=== PATIENT | female | born 1995 | race Caucasian/White ===

== ENCOUNTER 2022-05-31 13:17 | Outpatient (CLI) | payer OTHER, SELFPAY ==
[2022-05-31 22:23] LABS: Yeast No Yeast Seen (None Seen)
[2022-05-31 22:24] LABS: Clue Cells No Clue Cells Seen (None Seen); Trichomonas No Trichomonas Seen (None Seen)
[2022-06-01 11:04] LABS: Ur HCG Qualitative* Negative (Negative)
== END 2022-05-31 13:18 | disposition home or self-care (01) ==
PROVIDERS: PCP Nurse Practitioner Family; Visit Provider Nurse Practitioner Family
DX: R10.2 Pelvic and perineal pain (principal); N89.8 Other specified noninflammatory disorders of vagina
CPT/HCPCS: 81025; 87210

== ENCOUNTER 2022-08-31 12:30 | Outpatient (CLI) | payer BC, SELFPAY ==
--- OUTSIDE RECORDS SUMMARY | 2022-08-31 12:32 | XMS_ITS | Encounter Summary ---
:1995 Author Organization [facility] Address [address] [place] [address] Care Team Providers Name Role Phone Belkys Marshall APRN, C.NTawanna, M.S. Primary Care Provider [phone]- [phone] Encounter Details Date Type Department Care Team Description 04/30/2022 Hospital Encounter Department of Lucinda, Coliti s Crohn's (HCC); Laboratory Medicine [place], Care Pos tpartum And Lactating in [place] [phone] Social History Tobacco Use Types Packs/Day Years Used Date Smoking Tobacco: Never Smokeless Tobacco: Never Alcohol Use Standard Drinks/Week Comments Not Currently 0 (1 standard drink = 0.6 oz pure alcoho l) rarely before preg Alcohol Habits Answer Date Recorded How often do you have a drink containing alcohol? Never 11/23/2021 How many drinks containing alcohol do you have on a typical day 1 or 2 03/18/2021 when you are drinking? How often do you have six or more drinks on one occasion? Ne armaan 03/18/2021 Social Isolation Answer Date Recorded In a typical week, how many times do you More than three juan david es a week 11/23/2021 talk on the phone with family, friends, or neighbors? How often do you get together with friends Once a week 11/23/2021 or relatives? How often do you attend rastafari or 1 to 4 times per year 11/11 latter day services? Do you belong to any clubs or Yes 11/23/2021 organizations such as rastafari groups, unions, fraternal or athletic groups, or school groups? How often do you attend meetings of the 1 to 4 times per yea r 11/23/2021 clubs or organizations you belong to? Are you now , , , Living with partner 11/23/2021 , never or living with a partner? Physical Activity Answer Date Recorded On average, how many days per week do you engage in moderate to 3 days 11/23/2021 strenuous exercise (like walking fast, running, jogging, dancing, swimming, biking, or other activities that cause a light or heavy sweat)? On average, how many minutes do you engage in exercise at th is 30 min 11/23/2021 level? Stress Answer Date Recorded Do you feel stress - tense, restless, nervous, or anxious, N ot at all 11/23/2021 or unable to sleep at night because your mind is troubled all the time - these days? Financial Resource Strain Answer Date Recorded How hard is it for you to pay for the very basics like Not v carmina hard 11/23/2021 food, housing, medical care, and heating? Intimate Partner Violence Answer Date Recorded Within the last year, have you been afraid of your partner o r No 11/23/2021 ex-partner? Within the last year, have you been humiliated or emotionall y No 11/23/2021 abused in other ways by your partner or ex-partner? Within the last year, have you been kicked, hit, slapped, or No 11/23/2021 otherwise physically hurt by your partner or ex-partner? Within the last year, have you been raped or forced to have any No 11/23/2021 kind of sexual activity by your partner or ex-partner? Food Insecurity Answer Date Recorded Within the past 12 months, you worried that your food would Never true 11/23/2021 run out before you got money to buy more. Within the past 12 months, the food you bought just didn't N ever true 11/23/2021 last and you didn't have money to get more. Transportation Needs Answer Date Recorded In the past 12 months, has lack of transportation kept you f rom No 11/23/2021 medical appointments or from getting medications? In the past 12 months, has lack of transportation kept you f rom No 11/23/2021 meetings, work, or getting things needed for daily living? Housing Stability Answer Date Recorded In the last 12 months, was there a time when you were not ab le No 11/23/2021 to pay the mortgage or rent on time? In the last 12 months, how many places have you lived? 1 11/23/2021 In the last 12 months, was there a time when you did not hav e a No 11/23/[address] or slept in a assisted (including now)? Education Answer Date Recorded What is the highest level of school Master's degree (e.g., M A, MS, 11/23/2021 you have completed or the highest Connie, MEd, POWER LINEWORKER, LORI) degree you have received? Sex Assigned at Date Recorded Female 07/18/2021 2:49 PM CDT documented as of this encounter Medications at Time of Discharge Medication Sig Dispensed Refills Start Date End Date acetaminophen Take 2 tablets (1,000 0 02/23/2022 (TYLENOL) 500 mg mg total) by mouth tablet every 6 (six) hours. albuterol inhaler Inhale 1-2 puffs every 1 Inhaler 1 2019 4 (four) hours as needed for wheezing or shortness of breath. cholecalciferol, Take 25 mcg by mouth 0 vitamin D3, 25 mcg daily. (1,000 Unit) tablet docusate sodium Take 1 capsule (100 mg 30 capsule 6 02/24/20 22 (COLACE) 100 mg total) by mouth 2 capsule (two) times a day as needed for constipation. lidocaine (LIDODERM) 5 Place 1 patch on the 14 patch 1 % skin daily. Apply to skin above incision as needed mercaptopurine Take 1 tablet (50 mg 90 tablet 3 12/22/2021 (PURINETHOL) 50 mg total) by mouth daily. tablet on an empty stomach mupirocin (BACTROBAN) Apply 1 application 22 g 0 04/06 2 % ointment topically 3 (three) times a day. Apply to nipples norethindrone Take 1 tablet (0.35 mg 84 tablet 4 04/06/2022 04/06/2023 (MICRONOR) 0.35 mg total) by mouth daily. tablet oxyCODONE (ROXICODONE) Take 1 tablet (5 mg 6 tablet 0 02/09 5 mg immediate release total) by mouth every tabletIndications: 6 (six) hours as Acute Pain needed for moderate pain or score 4-6 of 10 Indication: Acute Pain. Take 1 tablet by mouth 0 02/23/2022 [id number] 27 daily. mg iron- 1 mg tablet sennosides (SENOKOT) Take 2 tablets (17.2 0 02/23 8.6 mg tablet mg total) by mouth at bedtime. simethicone (MYLICON) Chew 2 tablets (160 mg 0 80 mg chewable tablet total) every 6 (six) hours as needed for flatulence (for abdominal gas). ustekinumab (Stelara) Inject 90 mg 180 mL 2 11/01/2021 90 mg/mL subcutaneously every 8 injectionIndications: weeks. Crohn's Disease (HCC) sodium,potassium,mag Drink 1st portion of 1 kit 0 04/2605/03/2022 sulfates (SUPREP BOWEL prep at 6 PM the PREP) 17.5-3.13-1.6 evening before. 2nd gram solution portion must be started 3 hours before and finished 2 hours prior to report time documented as of this encounter Plan of Treatment Not on filedocumented as of this encounter Procedures Procedure Name Priority Date/Time Associated Comments Diagnosis HEPATIC FUNCTION Routine 04/30/2022 1:11 PM Colitis Crohn's Re sults for this PANEL, S CDT ([facility]) procedure are i n the results section. VITAMIN A AND VITAMIN Routine 04/30/2022 1:11 PM Colitis Crohn 's Results for this E, S CDT ([facility]) procedure are i n the results section. 25-HYDROXYVITAMIN D2 Routine 04/30/2022 1:11 PM Colitis Crohn' s Results for this AND D3, S CDT (HCC) procedure are i n the results section. PROTHROMBIN TIME Routine 04/30/2022 1:11 PM Colitis Crohn's Re sults for this (PT), P CDT (HCC) procedure are i n the results section. CBC WITH Routine 04/30/2022 1:11 PM Colitis Crohn's Result s for this DIFFERENTIAL, B CDT (HCC) procedure ar e in the results section. HUMAN CHORIONIC Routine 04/30/2022 1:11 PM Care And Results for this GONADOTROPIN (HCG), CDT Lactating procedur e are in [place]ECILIA, the results section. FOLATE, S Routine 04/30/2022 1:11 PM Colitis Crohn's Result s for this CDT (HCC) procedure are i n the results section. FERRITIN, S Routine 04/30/2022 1:11 PM Colitis Crohn's Result s for this CDT (HCC) procedure are i n the results section. VITAMIN B12 ASSAY, S Routine 04/30/2022 1:11 PM Colitis Crohn' s Results for this CDT (HCC) procedure are i n the results section. BASIC METABOLIC Routine 04/30/2022 1:11 PM Colitis Crohn's Res ults for this PANEL, S/P CDT (HCC) procedure are i n the results section. documented in this encounter Results hCG (Human Chorionic Gonadotropin), Quantitative, (04/30/2022 1:11 PM CDT) P athologist Signature HCG, <1.0 <5 IU/L 04/30/2022 [facility] Quantitative, 4:35 PM CDT , P Specimen Anatomical Collection Method Collection Time Receive d Time (Source) Location / / Volume Laterality Blood (Blood, 04/30/2022 1:11 PM 04/30/20 22 3:46 Venous) CDT PM CDT Juan Jama LAB BLOOD ADD-ON Performing Organization Address City/State/ZIP Code Phon e Number [facility]- [address] [place] [address] [facility] [place] [address] System in [place] [address] Vitamin A and Vitamin E (04/30/2022 1:11 PM CDT) athologist Signature Vitamin A 54.4 32.5 - 78.0 05/02/2022 8:03 [facility] mcg/dL AM CDT Comment: ----ADDITIONAL INFORMATION---- This test was developed and its performa nce characteristics determined by [facility] in a manner consistent with CLIA requirements. This test has not been cleared or approved by the [place] [facility] d and Drug Administration. A-Tocopherol, Vitamin E 6.1 5.5 - 17.0 mg/L 05/02/2022 2:20 PM CDT [facility] Specimen Anatomical Collection Method Collection Time Receive d Time (Source) Location / / Volume Laterality Blood (Blood, 04/30/2022 1:11 PM 05/01/20 Venous) CDT 11:54 AM CDT Juan GalindoSJulia LAB BLOOD NON ADD-ON Performing Organization Address City/[facility] Phon e Number [facility] [address] [place], [place] [address] [place] [address] CENTER [facility] [place] [address] Laboratory Medicine and Pathology [address] [place] [address] Dr. VALLES Vitamin B12 Assay (04/30/2022 1:11 PM CDT) athologist Signature Vitamin B12 732 240 - 1245 05/01/2022 AUST Assay, S ng/L 3:13 AM CDT Comment: Biotin has been identified by the paulina chaparro as a potential interfering substance. Higher concentrations of biotin may be found in multivitamins, zayas ir/nail supplements, and workout supplements. If the result d oes not match clinical observations, repeat testing af ter patient refrains from the use of supplements for at least 12 hours. Specimen Anatomical Collection Method Collection Time Receive d Time (Source) Location / / Volume Laterality Blood (Blood, 04/30/2022 1:11 PM 04/30/20 Venous) CDT 10:18 PM CDT Juan GalindoSJulia LAB BLOOD ADD-ON Performing Organization Address City/State/ZIP Code Phon e Number [facility]- [address] [place] [address] [facility] [place] [address] [facility] [address] Folate (04/30/2022 1:11 PM CDT) athologist Signature Folate, S 16.1 >=4.0 mcg/L 05/01/2022 3:13 AUST AM CDT Comment: Biotin has been identified by the paulina chaparro as a potential interfering substance. Higher concentrations of biotin may be found in multivitamins, zayas ir/nail supplements, and workout supplements. If the result d oes not match clinical observations, repeat testing af ter patient refrains from the use of supplements for at least 12 hours. Specimen Anatomical Collection Method Collection Time Receive d Time (Source) Location / / Volume Laterality Blood (Blood, 04/30/2022 1:11 PM 04/30/20 22 Venous) CDT 10:18 PM CDT Juan GalindoS. LAB BLOOD ADD-ON Performing Organization Address City/State/ZIP Code Phon e Number [facility]- [address] [place] [address] [facility] [place] [address] [facility] [address] Ferritin (04/30/2022 1:11 PM CDT) athologist Signature Ferritin, S 43 6 - 175 04/30/2022 [facility] mcg/L 4:21 PM CDT Comment: Biotin has been identified by the paulina cahparro as a potential interfering substance. Higher concentrations of biotin may be found in multivitamins, zayas ir/nail supplements, and workout supplements. If the result d oes not match clinical observations, repeat testing af ter patient refrains from the use of supplements for at least 12 hours. Specimen Anatomical Collection Method Collection Time Receive d Time (Source) Location / / Volume Laterality Blood (Blood, 04/30/2022 1:11 PM 04/30/20 22 3:46 Venous) CDT PM CDT Juan RicoBJuliaS. LAB BLOOD ADD-ON Performing Organization Address City/State/ZIP Code Phon e Number [facility]- [address] [place] [address] [place] [address] System in [place] [address] 25-Hydroxyvitamin D2 and D3 (04/30/2022 1:11 PM CDT) athologist Signature 25-Hydroxy D2 <4.0 ng/mL 05/02/2022 SDSC 1:06 PM CDT 25-Hydroxy D3 46 ng/mL 05/02/2022 [facility]SC 1:06 PM CDT 25-Hydroxy D 46 ng/mL 05/02/2022 [facility] Total 1:06 PM CDT Comment: ----REFERENCE VALUE---- 25-HYDROXY D TOTAL (D2+D3) Optimum level s in the healthy population are 20-50, patients with bone disease may benefit from higher levels within this r presley. ----ADDITIONAL INFORMATION---- This test was developed and its performa nce characteristics determined by [facility] in a manner consistent with CLIA requirements. This test has not been cleared or approved by the [place] d and Drug Administration. Specimen Anatomical Collection Method Collection Time Receive d Time (Source) Location / / Volume Laterality Blood (Blood, 04/30/2022 1:11 PM 05/01/20 7:21 Venous) CDT AM CDT Juan Jama LAB BLOOD ADD-ON Performing Organization Address City/State/ZIP Code Phon e Number [facility] [address] [place], [place] [address] SUPPORT CENTER [facility] [place] [address] Laboratory Medicine and Pathology [address] [place] Prothrombin Time (PT) (04/30/2022 1:11 PM CDT) athologist Signature Prothrombin 10.9 9.4 - 12.5 04/30/2022 [facility] Time, P sec 4:08 PM CDT INR 0.9 0.9 - 1.1 04/30/2022 [facility] 4:08 PM CDT Comment: ----ADDITIONAL INFORMATION---- Standard intensity warfarin therapeutic range: 2.0 to 3.0 ?? High intensity warfarin therapeutic rang e: 2.5 to 3.5 Specimen Anatomical Collection Method Collection Time Receive d Time (Source) Location / / Volume Laterality Blood (Blood, 04/30/2022 1:11 PM 04/30/20 3:46 Venous) CDT PM CDT Juan GalindoSJulia LAB BLOOD ADD-ON Performing Organization Address City/State/ZIP Code Phon e Number [facility]- [address] [place] [address] [facility] [place] [address] System in [place] [address] (ABNORMAL) Hepatic Function Panel (04/30/2022 1:11 PM CDT) [facility] gist Method Time Signature Bilirubin, Total, P 1.1 <=1.2 04/30/2022 [facility] mg/dL 4:14 PM CDT Bilirubin, Direct, P 0.2 0.0 - 0.3 04/30/2022 [facility] mg/dL 4:14 PM CDT Aspartate 21 8 - 43 04/30/2022 [facility] Aminotransferase U/L 4:14 PM CDT (AST), P Alanine 13 7 - 45 04/30/2022 [facility] Aminotransferase U/L 4:14 PM CDT (ALT), P Alkaline 73 35 - 104 04/30/2022 [facility] Phosphatase, P U/L 4:14 PM CDT Albumin, P 5.1 (H) 3.5 - 5.0 04/30/2022 [facility] g/dL 4:14 PM CDT Protein, Total, P 7.6 6.3 - 7.9 04/30/2022 [facility] g/dL 4:14 PM CDT Specimen Anatomical Collection Method Collection Time Receive d Time (Source) Location / / Volume Laterality Blood (Blood, 04/30/2022 1:11 PM 04/30/20 3:46 Venous) CDT PM CDT Juan GalindoSJulia LAB BLOOD ADD-ON Performing Organization Address City/State/ZIP Code Phon e Number [facility]- [address] [place] [address] [facility] [place] [address] System in [place] [address] CBC with Differential, Blood (04/30/2022 1:11 PM CDT) P athologist Signature Hemoglobin 15.0 11.6 - 04/30/2022 FB60 15.0 g/dL 1:54 PM CDT Hematocrit 44.8 35.5 - 04/30/2022 FB60 44.9 % 1:54 PM CDT Erythrocytes 4.82 3.92 - 04/30/2022 FB60 5.13 1:54 PM CDT x10(12)/L MCV 92.9 78.2 - 04/30/2022 FB60 97.9 fL 1:54 PM CDT RBC Distrib Width 12.4 12.2 - 04/30/2022 FB60 16.1 % 1:54 PM CDT Platelet Count 308 157 - 371 04/30/2022 FB60 x10(9)/L 1:54 PM CDT Leukocytes 5.8 3.4 - 9.6 04/30/2022 FB60 x10(9)/L 1:54 PM CDT Neutrophils 3.39 1.56 - 04/30/2022 FB60 6.45 1:54 PM CDT x10(9)/L Lymphocytes 1.73 0.95 - 04/30/2022 FB60 3.07 1:54 PM CDT x10(9)/L Monocytes 0.44 0.26 - 04/30/2022 FB60 0.81 1:54 PM CDT x10(9)/L Eosinophils 0.18 0.03 - 04/30/2022 FB60 0.48 1:54 PM CDT x10(9)/L Basophils 0.02 0.01 - 04/30/2022 FB60 0.08 1:54 PM CDT x10(9)/L Specimen Anatomical Collection Method Collection Time Receive d Time (Source) Location / / Volume Laterality Blood (Blood, 04/30/2022 1:11 PM 04/30/20 1:12 Venous) CDT PM CDT Juan Jama LAB BLOOD ADD-ON Performing Organization Address City/State/ZIP Code Phon e Number [facility]- [address] [place] [address] [facility] [address] [place] [address] System in [place] [address] (ABNORMAL) Basic Metabolic Panel (04/30/2022 1:11 PM CDT) P athologist Signature Potassium, P 4.3 3.6 - 5.2 04/30/2022 [facility] mmol/L 4:14 PM CDT Sodium, P 141 135 - 145 04/30/2022 [facility] mmol/L 4:14 PM CDT Chloride, P 105 98 - 107 04/30/2022 [facility] mmol/L 4:14 PM CDT Bicarbonate, P 24 22 - 29 04/30/2022 [facility] mmol/L 4:14 PM CDT Anion Gap, P 12 7 - 15 04/30/2022 [facility] 4:14 PM CDT BUN (Blood Urea 12 6 - 21 04/30/2022 [facility] Nitrogen), P mg/dL 4:14 PM CDT Creatinine 0.84 0.59 - 04/30/2022 [facility] 1.04 mg/dL 4:14 PM CDT eGFR-Black/Afric >90 >=60 04/30/2022 [facility] an Marshallese mL/min/BSA 4:14 PM CDT Comment: ----ADDITIONAL INFORMATION---- Estimated GFR calculated using the 2009 CKD_EPI creatinine equation. eGFR Non-Black/ >90 >=60 mL/min/BSA 04/30/2022 4:14 PM CDT [facility] Comment: ----ADDITIONAL INFORMATION---- Estimated GFR calculated using the 2009 CKD_EPI creatinine equation. Calcium, Total, P 10.6 (H) 8.6 - 10.0 mg/dL 04/30/2022 4:14 PM CDT [facility] Glucose, P 89 70 - 140 mg/dL 04/30/2022 4:14 PM CDT O ELIAZAR Specimen Anatomical Collection Method Collection Time Receive d Time (Source) Location / / Volume Laterality Blood (Blood, 04/30/2022 1:11 PM 04/30/20 3:46 Venous) CDT PM CDT Juan Jama LAB BLOOD ADD-ON Performing Organization Address City/State/ZIP Code Phon e Number [facility]- [address] [place] [address] [place] [address] System in [place] [address] documented in this encounter Visit Diagnoses Diagnosis Colitis Crohn's (HCC) Care And Lactating documented in this encounter Additional Health Concerns Assessment Noted Time PHQ-9 Depression Total Score: 4 11/29/2021 10:43 AM CS T documented as of this encounter Care Teams Community Health Advocate Relationship Specialty Start Date End Date Belkys Marshall APRN, C.N.P., M.S. PCP - General Family Medicine 11/16/[address] [place] [address] documented as of this encounter
--- OUTSIDE RECORDS SUMMARY | 2022-08-31 12:32 | XMS_ITS | Encounter Summary ---
:1995 Author Organization [facility] Address [address] [place] [address] Care Team Providers Name Role Phone Belkys Marshall APRN C.N.P., M.S. Primary Care Provider [phone]- [phone] Encounter Details Date Type Department Care Team Description 02/28/2022 Orders Only Pharmacy Prior Auth Aleksandra Aragon [phone] Social History Tobacco Use Types Packs/Day Years [...] or relatives? How often do you attend jain or 1 to 4 times per year 11/11 lutheran services? Do you belong to any clubs or Yes 11/23/2021 organizations such as jain groups, unions, fraternal or athletic groups, or [...] highest level of school Master's degree (e.g., Naima An, MS, 11/23/2021 you have completed or the highest Connie, MEd, SEISMIC SURVEY ASSISTANT, LORI) degree you have received? Sex Assigned at Date Recorded Female 07/18/2021 2:49 PM CDT documented as of this encounter Plan of Treatment Not on filedocumented as of this encounter Visit Diagnoses Not on filedocumented in this encounter Additional Health Concerns Assessment Noted Time PHQ-9 Depression Total Score: 4 11/29/2021 10:43 AM CS T documented as of this encounter Care Teams Potato Chip Sorter Relationship Specialty Start Date End Date Belkys Marshall, KARL, C.N.P., M.S. PCP - General Family Medicine 11/16/19 [address] [place] [address] documented as of this encounter
--- OUTSIDE RECORDS SUMMARY | 2022-08-31 12:32 | XMS_ITS | Encounter Summary ---
:1995 Author Organization [facility] Address [address] [place] [address] Care Team Providers Name Role Phone Belkys Marshall APRN, C.NVira., M.S. Primary Care Provider [phone]- [phone] Reason for Visit Outpatient (Routine) - Closed Specialty Diagnoses / Procedures Referred By Contact Refer red To Contact Diagnoses [facility] Colon[facility] restricted M.B.B.S. [address] [place] [address] Referral ID Status Reason Start Date Expiration Date Visits Requ ested Visits Authorized [id number] Closed 04/06/2022 04/06/2023 1 1 Encounter Details Date Type Department Care Team Description 04/30/2022 Hospital Encounter Division of Parthasarath Canceled (Patient: Gastroenterology in y, Request) [facility], [address] [facility] [[email or web address] M[place]B.B.S. [place], [place] [phone] [place] [phone] Social History Tobacco Use Types Packs/Day Years [...] or relatives? How often do you attend presybeterian or 1 to 4 times per year 11/11 protestant services? Do you belong to any clubs or Yes 11/23/2021 organizations such as presybeterian groups, unions, fraternal or athletic groups, or [...] place to sleep or slept in a skilled nursing (including now)? Education Answer Date Recorded What is the highest level of school Master's degree (e.g., M A, MS, 11/23/2021 you have completed or the highest Connie, MEd, TRANSITION COACH, LORI) degree you have received? Sex Assigned [...] capsule (100 mg 30 capsule 6 02/24/20 (COLACE) 100 mg total) by mouth 2 [...] Take 1 tablet by mouth 0 02/23/2022 [id number] 27 daily. mg iron- 1 mg tablet [...] encounter Procedures Procedure Name Priority Date/Time Associated Diagnosis Comme nts COLONOSCOPY RESTRICTED Routine 05/03/2022 7:48 AM CDT Colitis Crohn's (HCC) documented in this encounter Visit Diagnoses Not on filedocumented in this encounter Additional Health Concerns Assessment Noted Time PHQ-9 Depression Total Score: 4 11/29/2021 10:43 AM CS T documented as of this encounter Care Teams Residential Director Relationship Specialty Start Date End Date Belkys Marshall, KARL, C.N.P., M.S. PCP - General Family Medicine 11/16/[address] [place] [address] documented as of this encounter
--- OUTSIDE RECORDS SUMMARY | 2022-08-31 12:32 | XMS_ITS | Encounter Summary ---
:1995 Author Organization [facility] Address [address] [place] [address] Care Team Providers Name Role Phone Belkys Marshall APRN, C.N.P., M.S. Primary Care Provider [phone]- [phone] Encounter Details Date Type Department Care Team Description 05/03/2022 Anesthesia Event Division of Gastroenterology David Garnett, in [facility] JUNIOR TECHNICAL WRITER, ELECTRIC MOTOR REPAIRING SUPERVISOR [address] [place] [address] [address] [place] [address] [place], [place] [phone] Anesthesia Record Procedure Summary Procedure Name Responsible Anesthesia Start Anesthesia Stop Anesthesiologist Time Time COLONOSCOPY David Garnett APRN, 05/03/22 0807 05/03/22 0856 RESTRICTED ELECTRIC MOTOR REPAIRING SUPERVISOR Events Date Time Event Comment 05/03/2022 0807 An Start Machine/Equipmen t Checked Infection Precautions Foll owed Procedure/Site Verified NPO Sta tus Verified Supine Standard ASA Mon itors Applied 0812 Turnover to Proceduralist 0812 Proc Start 0841 Proc Fin 0842 Turnover to ANE Staff 0843 an stop data 0856 An End I completed my h andoff to the receiving staff during i ch we 1. Identified the patient 2. Ident ified the responsible provider 3. Revi ewed the pertinent medical history 4. Discu ssed the surgical course 5. Reviewed intra-o p anesthesia management and issues during an esthesia 6. Set expectations for post-procedure period 7. Allowed opportun ity for questions and acknowledgement of understanding. Name Total midazolam PF injection 1 mg/mL 2 mg fentanyl injection 50 mcg/mL 100 mcg lidocaine 2% (mg) injection 60 mg propofol 10 mg/mL injection 310 mg propofol 10 mg/mL infusion 408.29 mg ondansetron PF 4 mg/2 mL injection 4 mg Lactated Ringers Free Drip 441 mL Agents No agents on file. Blood No blood administrations on file. Lines, Drains, and Airways Type Details Placement Removal Wound 02/20/22; 1800; N; 02/20/221800 by Sandy, Incision; Abdomen; Lower, Carri Campos R.N. Medial; Peripheral IV Placement Date: 05/03/22; 05/03/22801 by 05/03 by Placement Time: 801; Alecia Martínez, RJuliaNJagruti Holliday, RJuliaNJulia Catheter Size: 22 G; Orientation: Right; Location: Forearm; Site Prep: Alcohol; Technique: Anatomical landmarks; Inserted by: Sindy Reno; Removal Date: 05/03/22; Removal Time: 908 documented in this encounter Social History Tobacco Use Types Packs/Day Years [...] or relatives? How often do you attend hoahaoism or 1 to 4 times per year 11/11 islam services? Do you belong to any clubs or Yes 11/23/2021 organizations such as hoahaoism groups, unions, fraternal or athletic groups, or [...] place to sleep or slept in a prison (including now)? Education Answer Date Recorded What is the highest level of school Master's degree (e.g., M A, MS, 11/23/2021 you have completed or the highest Connie, MEd, CLEANING LABORER, LORI) degree you have received? Sex Assigned at Date Recorded Female 07/18/2021 2:49 PM CDT documented as of this encounter OR Notes Anesthesia Postprocedure Evaluation - David Garnett APRN, CRNA - 05/03/2022 9:36 AM CDT Patient: Laurel Mcdonald Procedure Summary Date: 05/03/22 Room / Location: Division of Gastroenterology in [place], [place] Anesthesia Start: 806 Anesthesia Stop: 855 Procedure: COLONOSCOPY RESTRICTED Diagnosis: Colitis Crohn's (HCC) Scheduled Providers: Mohan Ragland M.D. Responsible Provider: David Garnett APRN, CRNA Anesthesia Type: MAC ASA Status: 2 Anesthesia Type: MAC Last vitals Vitals Value Taken Time BP 106/85 05/03/22 0915 Temp 36.5 ??C 05/03/22 0847 Pulse 77 05/03/22 0919 Resp 13 05/03/22 0919 SpO2 100 % 05/03/22 09 Please reference Vitals flowsheet for most recent vital signs. Anesthesia Post Evaluation Patient Disposition: dismissal Cardiovascular status: hemodynamics (HR & BP) acceptable Respiratory status: patent airway with spontaneous effort Temperature: normothermic Oxygen requirements: room air Level of consciousness: awake Pain score: pain adequately controlled and/or at baseline Post Op nausea/vomiting: none Hydration status: euvolemic Anesthesia Preprocedure Evaluation - David Garnett APRN, CRNA - 05/03/2022 8:12 AM CDT Preprocedure Anesthesia & H&P Assessment Procedure Summary Anesthesia Start Date/Time: 05/03/22 0807 Scheduled providers: Mohan Ragland M.D. Procedure: COLONOSCOPY RESTRICTED Diagnosis: Colitis Crohn's (HCC) [K50.10] Location: Division of Gastroenterology in [place], [place] Pertinent components of the patient's history including current problem list, medical history, surgical history, family history, social history, medications and allergies were reviewed. Present illnessand pre-op diagnosis were confirmed. The planned surgery / procedure was verified with the patient /legal guardian. The patient's general health condition remains unchanged RELEVANT COMORBID CONDITIONS RESP (+) Asthma Mild Intermittent (HCC) RENAL/REPRO (+) Hemorrhage Delayed With Delivery (HCC) ENDO (+) Thyroiditis Amador's GI (+) Colitis Crohn's (HCC) OBJECTIVE PHYSICAL EXAMINATION Airway (HEENT) Mallampati: I TM Distance: >3 FB Neck ROM: Full Mouth Opening: >3 cm Upper Lip Bite Test Class: I Cardiovascular Rhythm: Regular Rate: Normal Cardiovascular Assessment: cardiovascular normal Functional Capacity: >4 METS Pulmonary Pulmonary Assessment: Clear General / Constitutional Constitutional Assessment: Normal General State of Health:: healthy appearing and calm Neurological Neurologic Assessment:??alert and alert and oriented x 3 Dental Dental Assessment: dentition intact ASSESSMENT / PLAN ANESTHESIA PLAN ASA: 2 Anesthesia Plan: MAC Reason for MAC: history of or anticipated intolerance to standard sedatives Patient seen and allergies reviewed, anesthesia plan and risks discussed directly with patient /legal guardian or through an train control electronic technician. Risks/Benefits/Alternatives of Blood transfusion discussed with patient / legal guardian, including an opportunity to ask questions and/or decline some or all transfusion therapies. The patient / legalguardian consented to the use of all blood products, as deemed medically necessary Approval to Proceed: approved for anesthesia documented in this encounter Plan of Treatment Not on filedocumented as of this encounter Visit Diagnoses Not on filedocumented in this encounter Administered Medications Inactive Administered Medications - up to 3 most recent administrations Medication Order MAR Action Action Date Dose Rate Site fentaNYL injection (SUBLIMAZE) Given 05/03/2022 8:14 AM CDT 100 mcg intravenous, As needed, Starting on Pura 05/03/22 at 0814, Anesthesia Intra-op lactated ringers New Bag 05/03/2022 8:07 AM CDT intravenous, Continuous Infusion: Per Instructions PRN, Starting on Pura 05/03/22 at 0807, Anesthesia Intra-op lidocaine (PF) (cardiac) injection Given 05/03/2022 8:08 AM CDT 60 mg intravenous, As needed, Starting on Pura 05/03/22 at 0808, Anesthesia Intra-op midazolam (PF) injection (VERSED) Given 05/03/2022 8:18 AM CDT 2 mg intravenous, As needed, Starting on Pura 05/03/22 at 0818, Anesthesia Intra-op ondansetron (PF) injection (ZOFRAN) Given 05/03/2022 8:08 AM CDT 4 mg intravenous, As needed, Starting on Pura 05/03/22 at 0808, Anesthesia Intra-op propofol 10 mg/mL infusion Rate/Dose 05/03/2022 8:37 150 mcg/kg/min 56.97 (DIPRIVAN) Change AM CDT mL/hr intravenous, Continuous Infusion: Per Instructions PRN, Starting on Pura 05/03/22 at 0808, Anesthesia Intra-op Rate/Dose Change 05/03/2022 8:21 AM CDT 200 mcg/kg/min 75.96 mL/hr Rate/Dose Change 05/03/2022 8:14 AM CDT 250 mcg/kg/min 94.95 mL/hr propofoL injection (DIPRIVAN) Given 05/03/2022 8:17 AM CDT 20 mg intravenous, As needed, Starting on Pura 05/03/22 at 0807, Anesthesia Intra-op Given 05/03/2022 8:15 AM CDT 30 mg Given 05/03/2022 8:14 AM CDT 50 mg documented in this encounter Additional Health Concerns Assessment Noted Time PHQ-9 Depression Total Score: 4 11/29/2021 10:43 AM CS T documented as of this encounter Care Teams Concrete Building Assembler Relationship Specialty Start Date End Date Belkys Marshall, KARL, C.N.P., M.S. PCP - General Family Medicine 11/16/19 [address] [place] [address] documented as of this encounter
--- OUTSIDE RECORDS SUMMARY | 2022-08-31 12:32 | XMS_ITS | Encounter Summary ---
:1995 Author Organization [facility] Address [address] [place] [address] Care Team Providers Name Role Phone Belkys Marshall APRN, C.NTawanna, M.S. Primary Care Provider [phone]- [phone] Reason for Referral Outpatient (Routine) - Closed Specialty Diagnoses / Procedures Referred By Contact Refer red To Contact Diagnoses Lump In The Right Breast Unspecified Quadrant Angela Hassan M.D., Ph.D. [facility] Procedures BI Ultrasound Breast Focused Right [address] [place] [phone] Referral ID Status Reason Start Date Expiration Date Visits Requ ested Visits Authorized [id number] Closed 04/06/2022 04/06/2023 1 1 Outpatient (Routine) - Closed Specialty Diagnoses / Procedures Referred By Contact Refer red To Contact Obstetrics and Diagnoses Difficulty Mom Angela Hassan M.D., [facility] Gynecology Ph.D. [address] [place] [phone] Referral ID Status Reason Start Date Expiration Date Visits Requ ested Visits Authorized [id number] Closed 04/06/2022 04/06/2023 1 1 Scheduling Instructions 3 pm today and check in please Reason for Visit Reason Comments Care Outpatient (Routine) - Closed Specialty Diagnoses / Procedures Referred By Contact Refer red To Contact Obstetrics and Angela Hassan M.D., [facility] Gynecology Ph.D. [address] [place] [address] Referral ID Status Reason Start Date Expiration Date Visits Requ ested Visits Authorized [id number] Closed 02/05/2022 02/05/2023 1 1 Encounter Details Date Type Department Care Team Description 04/06/2022 Visit Department of Angela Hassan, High Risk Human Papillomavirus Deoxyribonucleic Acid Test Positive Cervix (Primary Dx); Obstetrics and Kasey, Ph.D. Difficulty Mom; Gynecology in [address] [place] [address] Lump In The Right Breast Unspecified Kerwin edgar; [place], [place] Care Postpartu m And Lactating; [place] [phone] Colitis Crohn's (HCC) [address] [facility] [phone] [place], [place] (Work) [phone] Social History Tobacco Use Types Packs/Day Years [...] or relatives? How often do you attend advent or 1 to 4 times per year 11/11 sabianist services? Do you belong to any clubs or Yes 11/23/2021 organizations such as advent groups, unions, fraternal or athletic groups, or [...] for the very basics like Not v carmnia hard 11/23/2021 food, housing, medical care, and [...] place to sleep or slept in a fpc (including now)? Education Answer Date Recorded What is the highest level of school Master's degree (e.g., M Nataliya, MS, 11/23/2021 you have completed or the highest Connie, MEd, PAPER BOX MAKER, LORI) degree you have received? Sex Assigned at Date Recorded Female 07/18/2021 2:49 PM CDT documented as of this encounter Last Filed Vital Signs Vital Sign Reading Time Taken Comments Blood Pressure 98/61 04/06/2022 2:22 PM CDT Pulse 84 04/06/2022 2:22 PM CDT Temperature 36.7 ??C (98 ??F) 04/06/2022 2:22 PM CDT Respiratory Rate - - Oxygen Saturation 96% 04/06/2022 2:22 PM CDT Inhaled Oxygen Concentration - - Weight 63.3 kg (139 lb 8.8 oz) 04/06/2022 2:22 PM CDT Height - - Body Mass Index 23.22 02/19/2022 8:24 AM CDT documented in this encounter Progress Angela Castillo M.D., Ph.D. - 04/06/2022 2:00 PM CDT SUBJECTIVE CHIEF COMPLAINT / REASON FOR VISIT examination. The patient is a 27yo s/p delivery for arrest of descent. Antepartum course was complicated by: Crohn disease on Stelara. She also had COVID in . Based on QBL, she had increased bleeding after (1285ml). She has a history of HPV positive pap in February of 2021. She also has a history of breast lump, likely fibroadenoma. course has been uncomplicated. Patient is pumping and bottle feeding breast milk. Baby's name is: Sascha Patient's bleeding is stopped. Patient's bladder/bowel function is as expected. HISTORY OF PRESENT CONDITION OB History Para Term AB Living 1 1 1 0 0 1 SAB IAB Ectopic Molar Multiple Live Births 0 0 0 0 0 1 # Outcome Date GA Lbr William/2nd Weight Sex Delivery Anes PTL Lv 1 Term 02/20/22 39w1d / 03:24 3.91 kg M CS-LTranv EPI GERRY The following portions of the patient's history were reviewed and updated as appropriate: problem list. REVIEW OF SYSTEMS A comprehensive review of systems was negative. OBJECTIVE VITAL SIGNS Vitals: 04/06/22 1422 BP: 98/61 Pulse: 84 Temp: 36.7 ??C Weight: 63.3 kg SpO2: 96% TempSrc: Oral MEDICATIONS I am having Ms. Laurel Mcdonald start on norethindrone. I am also having her maintain her albuterol, cyanocobalamin, Stelara, mercaptopurine, cholecalciferol (vitamin D3), docusate sodium, acetaminophen, sennosides, lidocaine, oxyCODONE, simethicone, and khlpoke-Cv-ylme-FA. PHYSICAL EXAM Debra Mendosa present for examination. Breasts: normal Lymph nodes: normal Abdomen: no organomegaly, masses or hernia. Incision well healed, c/d/i. Genitalia: external vulva, Bartholin's, urethra, [place]'s glands and fourchette negative Perineum: negative. Vagina: normal Cervix: normal. Pap obtained. Bimanual: exam revealed normal mobile uterus, negative adnexa Rectovaginal exam: confirms good sphincter tone MENTAL STATUS The patient's PHQ-9 and/or ABDIAZIZ-7 scores were reviewed and assessed. PHQ9 Score 08/01/2021 11/29/2021 PHQ-9 Total Score (max 27) 1 4 GAD7 Score 08/01/2021 11/29/2021 ABDIAZIZ-7 Total Score (max 21) 0 0 DIAGNOSTICS I have reviewed the most recent labs Blood Type: O Pos Antibody Screen: Antibody Screen Date Value Ref Range Status 02/19/2022 Negative Negative Final Thin Prep: obtained ASSESSMENT / PLAN Visit Diagnoses High Risk Human Papillomavirus Deoxyribonucleic Acid Test Positive Cervix - Primary Relevant Orders ThinPrep w/HPV Co-Test Diagnostic #1 Normal exam #2 No evidence of Mood Disorder #3 Contraception: Oral contraceptive prescription given today for Isha #4 Crohns - patient will follow up with GI #5 History of HPV positive pap - Pap obtained today. #6 Breast lump - Focused breast US ordered PATIENT EDUCATION Ready to learn, barriers to learning: none; learning preferences include listening. Explained diagnosis and treatment plan; patient expressed understanding of the content. Angela Hassan M.D., Ph.D. documented in this encounter Plan of Treatment Scheduled Referrals Name Type Priority Associated Diagnoses Order S chedule Obstetrics and Outpatient Referral Routine Expec alicia: Gynecology - Difficulty Mom 04/06/2022, consult Expires: (clinic) 07/07/2023 documented as of this encounter Procedures Procedure Name Priority Date/Time Associated Diagnosis Comme nts THINPREP W/HPV Routine 04/06/2022 2:42 High Risk Human Results for this CO-TEST DIAGNOSTIC PM CDT Papillomavirus procedu re are in Deoxyribonucleic Acid the re sults Test Positive Cervix section . HPV WITH Routine 04/06/2022 2:42 Results for this GENOTYPING, PCR, PM CDT procedure a re in THINPREP the results section. documented in this encounter Results (ABNORMAL) BI Ultrasound Breast Focused Right (04/11/2022 1:14 PM CDT) Anatomical Region Laterality Modality Breast, Breast Imaging RST LOS, Breast Imaging [facility], [facility] Right Ultrasound Imaging [facility] Specimen (Source) Anatomical Collection Method Collection Time Re ceived Time Location / / Volume Laterality 04/11/2022 1:16 PM CDT Impressions 04/11/2022 1:28 PM CDT No significant change in the size of the palpable mass at 9 o'clock 3 cm from the right nipple. This may represent a lactating a denoma. RECOMMENDATION: ??Short-Term Follow-Up 6 Month Follow-up right breast ultrasound in [facility] is recommended. The patient was instructed to notify her provider if the mass increases in si ze. ASSESSMENT: ??BI-RADS: 3: Probably Benig n. Narrative 04/11/2022 1:28 PM CDT EXAM: ??BI ULTRASOUND BREAST FOCUSED RIGHT INDICATION: ??Follow-up palpable mass in the right breast. Patient is currently lactating. COMPARISON: ??Ultrasound dated 2 when the patient was in her 3rd trimester of . FINDINGS: ??Ultrasound of the palpable m ass at 9 o'clock 3 cm from the right nipple demonstrates a 1.9 x 0.9 x 1.7 cm isoechoic mass with i nternal cystic change measured 1.7 x 0.8 x 1.6 cm previously. The cystic component has inc reased since the prior ultrasound which likely accounts for the minimal increase in size. ?? Procedure Note Genoveva Barajas M.D. - 04/11/2022For matting of this note might be different from the original. EXAM: BI ULTRASOUND BREAST FOCUSED RIGHT INDICATION: Follow-up palpable mass in t he right breast. Patient is currently lactating. COMPARISON: Ultrasound dated 02/12/2022 when the patient was in her 3rd trimester of . FINDINGS: Ultrasound of the palpable mas s at 9 o'clock 3 cm from the right nipple demonstrates a 1.9 x 0.9 x 1.7 cm isoechoic mass with i nternal cystic change measured 1.7 x 0.8 x 1.6 cm previously. The cystic component has inc reased since the prior ultrasound which likely accounts for the minimal increase in size. IMPRESSION: No significant change in the size of the palpable mass at 9 o'clock 3 cm from the right nipple. This may represent a lactating a denoma. RECOMMENDATION: Short-Term Follow-Up [address] [place] [address] Follow-up right breast ultrasound in [address] [place] [address] is recommended. The patient was instructed to notify her provider if the mass increases in si ze. ASSESSMENT: BI-RADS: 3: Probably Benign. Angela Hassan M.D., Ph.D. IMG BI PROCEDURES HPV with Genotyping, PCR, ThinPrep (04/06/2022 2:42 PM CDT) [facility] Method Time Signature Specimen Thin Prep 04/12/2022 DTL Source Vial, 5:11 PM CDT Cervix/Endoc ervix HPV High Risk Negative Negative 04/12/2022 DTL type 16, PCR 5:11 PM CDT HPV High Risk Negative Negative 04/12/2022 DTL type 18, PCR 5:11 PM CDT HPV other Negative Negative 04/12/2022 DTL High Risk 5:11 PM CDT types, PCR Comment: The following Other High Risk HPV types were not detected: 31, 33, 35, 39, 45, 51, 52, 56, 58, 59, 66, and 68 This test was ordered in the context of a [facility] ENGINEERING LECTURER Cytology case; this result should be int erpreted within the context of the ENGINEERING LECTURER cytology report. Specimen Anatomical Collection Method Collection Time Receive d Time (Source) Location / / Volume Laterality Varies 04/06/2022 2:42 PM 6:02 CDT PM CDT Angela Hassan M.D., Ph.D. LAB MICROBIOLOGY - GENERAL O GILMARERABLES Performing Organization Address City/State/ZIP Code Phon e Number [facility] - [address] [place] [address] [place] [address] [place] [address] [facility] 200 [facility] ThinPrep w/HPV Co-Test Diagnostic (04/06/2022 2:42 PM CDT) Component Value Ref Test Analysis Performed Pathologis t Range Method Time At [facility] 04/18/2022 DTL 10:15 AM CDT Report LYLE Humphrey (ASCP) 04/18/2022 DTL electronically 10:15 AM signed by CDT I verify that I have examined all relevant slides/materials for the specimen(s) and rendered or confirmed the diagnosis. Gross Description Received specimen 04/18/2022 DTL in a ThinPrep 10:15 AM vial. CDT Pap Test Source Cervical/Endocervi 04/18/2022 DTL pierre 10:15 AM CDT Clinical History Post 04/18/2022 DTL atrophic vaginits 10:15 AM CDT Hormone None/Not known 04/18/2022 DTL Therapy/Contracep 10:15 AM tives CDT Interpretation Cervical/Endocervical ??(ThinPrep): 04/18/2022 DTL 10:15 AM Satisfactory for Evaluation CDT Negative for Intraepithelial Lesion or Malignancy ??High Risk HPV testing results are NEGATIVE. See specific genotype results below. HPV with Genotyping, PCR, ThinPrep: ??HPV High Risk Type 16, PCR: ??NEGATIVE ??HPV High Risk Type 18, PCR: ??NEGATIVE ??HPV other High Risk types, PCR: ??NEGATIVE Other High Risk HPV types include: 31, 33, 35, 39, 45, 51, 52, 56, 58, 59, 66, and 68. Specimen Anatomical Collection Method Collection Time Receive d Time (Source) Location / / Volume Laterality Varies 04/06/2022 2:42 PM 6:02 (Cervix/Endocerv CDT PM CDT ix) Narrative This result has an attachment that is no t available. Angela Hassan M.D., Ph.D. LAB PAP PATHDX ORDERABLES Performing Organization Address City/State/[facility] Code Phon e Number [facility] - [address] [place] [address] [phone] [facility] [place] [address] [facility] 200 [facility] documented in this encounter Visit Diagnoses Diagnosis High Risk Human Papillomavirus Deoxyribo nucleic Acid Test Positive Cervix - Primary Difficulty Mom Lump In The Right Breast Unspecified Kerwin drant Care And Lactating Colitis Crohn's (HCC) Lump In The Right Breast Unspecified Kerwin drant documented in this encounter Additional Health Concerns Assessment Noted Time PHQ-9 Depression Total Score: 4 11/29/2021 10:43 AM CS T documented as of this encounter Care Teams Beehive Kiln Charcoal Burner Relationship Specialty Start Date End Date Belkys Marshall, KARL, C.N.P., M.S. PCP - General Family Medicine 11/16/19 [address] [place] [address] documented as of this encounter
--- OUTSIDE RECORDS SUMMARY | 2022-08-31 12:32 | XMS_ITS | Encounter Summary ---
:1995 Author Organization [facility] Address [address] [place] [address] Care Team Providers Name Role Phone Belkys Marshall APRN, C.NVira., M.S. Primary Care Provider +1- [phone] Reason for Visit Reason Comments Vaginal Discharge Pelvic Pain Encounter Details Date Type Department Care Team Description 05/29/2022 Clinical Communication Department of Angela Hassan, Vag inal Discharge; Obstetrics and M.Joaquina, Ph.D. Pelvic Pain Gynecology in [address] [place] [phone] [place] [address] [place], [place] (Work) [phone] Social History Tobacco Use Types Packs/Day Years [...] or relatives? How often do you attend caodaism or 1 to 4 times per year 11/11 adventism services? Do you belong to any clubs or Yes 11/23/2021 organizations such as caodaism groups, unions, fraternal or athletic groups, or [...] place to sleep or slept in a alf (including now)? Education Answer Date Recorded What is the highest level of school Master's degree (e.g., M A, MS, 11/23/2021 you have completed or the highest Connie, MEd, VICE PRESIDENT SALES, LORI) degree you have received? Sex Assigned at Date Recorded Female 07/18/2021 2:49 PM CDT documented as of this encounter Miscellaneous Notes Telephone Encounter - Lida Ramirez, R.N. - 05/29/2022 9:29 AM CDT SUBJECTIVE CHIEF COMPLAINT / REASON FOR CALL Vaginal Discharge and Pelvic Pain ASSESSMENT Called Laurel regarding her concerns. Laurel states she has had pelvic pain off and on since delivery inApril. The pelvic pain has been worse over the past 2-3 days. She also notes green vaginal dischargethat started 3 days ago. PLAN Advised Laurel to call her primary care provider for recommendations. Laurel confirms that she has the phone number for her primary care provider. She verbalizes understanding of the plan and has no further questions at this time. Disposition/Recommendation: Patient to call her primary care provider for recommendations today . Information/Education: patient/caller able to teach back. Caller agreeable to plan of care: yes. The following references were used: nursing clinical judgement. Telephone Encounter - Kathy Rae Campos - 05/29/2022 9:10 AM CDT Patient calling in with swelling under incisions and she is rating her pain a t a 6 but has been as a bad as a 10, she states she is having a green vaginal discharge. Please call her rodrigo. documented in this encounter Plan of Treatment Not on filedocumented as of this encounter Visit Diagnoses Not on filedocumented in this encounter Additional Health Concerns Assessment Noted Time PHQ-9 Depression Total Score: 4 11/29/2021 10:43 AM CS T documented as of this encounter Care Teams Virtual Customer Assistant Relationship Specialty Start Date End Date Belkys Marshall APRN, C.N.P., M.S. PCP - General Family Medicine 11/16/19 [address] [place] [address] documented as of this encounter
--- OUTSIDE RECORDS SUMMARY | 2022-08-31 12:32 | XMS_ITS | Encounter Summary ---
:1995 Author Organization [facility] Address [address] [place] [address] Care Team Providers Name Role Phone Belkys Marshall APRN, C.N.P., M.S. Primary Care Provider +1- [phone] Encounter Details Date Type Department Care Team Description 04/06/2022 Clinical Communication Division of [facility] Gastroenterology in [place], [place] M.B.B.S. [address] [place] [address] [place] [phone] [place], [place] [phone] Social History Tobacco Use Types Packs/Day Years [...] or relatives? How often do you attend anglican or 1 to 4 times per year 11/11 judaism services? Do you belong to any clubs or Yes 11/23/2021 organizations such as anglican groups, unions, fraternal or athletic groups, or [...] have completed or the highest Connie, MEd, CHORUS DANCER, LORI) degree you have received? Sex Assigned at Date Recorded Female 07/18/2021 2:49 PM CDT documented as of this encounter Plan of Treatment Not on filedocumented as of this encounter Visit Diagnoses Not on filedocumented in this encounter Additional Health Concerns Assessment Noted Time PHQ-9 Depression Total Score: 4 11/29/2021 10:43 AM CS T documented as of this encounter Care Teams Jewel Bearing Driller Relationship Specialty Start Date End Date Belkys Marshall, KARL, C.N.P., M.S. PCP - General Family Medicine 11/16/19 [address] [place] [address] documented as of this encounter
--- OUTSIDE RECORDS SUMMARY | 2022-08-31 12:32 | XMS_ITS | Encounter Summary ---
:[address] [facility] Address [address] [place] [address] Care Team Providers Name Role Phone Belkys Marshall APRN, C.N.P., M.S. Primary Care Provider +1- [phone] Encounter Details Date Type Department Care Team Description 04/25/2022 Clinical Communication Division of [facility] Gastroenterology in [place], [place] M.B.B.S. [address] [place] [address] [place] [phone] [place], [place] [phone] Social History Tobacco Use Types Packs/Day Years [...] or relatives? How often do you attend oriental orthodox or 1 to 4 times per year 11/11 hoahaoism services? Do you belong to any clubs or Yes 11/23/2021 organizations such as oriental orthodox groups, unions, fraternal or athletic groups, or [...] place to sleep or slept in a mcfp (including now)? Education Answer Date Recorded What is the highest level of school Master's degree (e.g., M A, MS, 11/23/2021 you have completed or the highest Connie, MEd, DIRECTOR RECORDS MANAGEMENT, LORI) degree you have received? Sex Assigned at Date Recorded Female 07/18/2021 2:49 PM CDT documented as of this encounter Miscellaneous Notes Addendum Note - Juan Jane M.B.B.S. - 04/25/2022 4:09 PM CDT Addended by: JUAN JANE on: 04/25/2022 04:09 PM Modules accepted: Orders documented in this encounter Plan of Treatment Not on filedocumented as of this encounter Visit Diagnoses Not on filedocumented in this encounter Additional Health Concerns Assessment Noted Time PHQ-9 Depression Total Score: 4 11/29/2021 10:43 AM CS T documented as of this encounter Care Teams Head Of Integrated Media Relationship Specialty Start Date End Date Belkys Marshall APRN, C.N.P., M.S. PCP - General Family Medicine 11/16/19 [address] [place] [address] (work) documented as of this encounter
--- OUTSIDE RECORDS SUMMARY | 2022-08-31 12:32 | XMS_ITS | Encounter Summary ---
:1995 Author Organization [facility] Address [address] [place] [address] Care Team Providers Name Role Phone Belkys Marshlal APRN, C.N.P., M.S. Primary Care Provider +1- [phone] Reason for Referral Outpatient (Routine) - Closed Specialty Diagnoses / Procedures Referred By Contact Refer red To Contact Diagnoses Colitis Crohn's (HCC) [facility] Procedures Colonoscopy restricted M.B.B.S. [address] [place], [place] [address] Referral ID Status Reason Start Date Expiration Date Visits Requ ested Visits Authorized [id number] Closed 04/06/2022 04/06/2023 1 1 utpatient (Routine) - Closed Specialty Diagnoses / Procedures Referred By Contact Refer red To Contact Diagnoses Colitis Crohn's (HCC) [facility] Procedures US Gallbladder and or Biliary Ducts M.B.B.S. [address] [place] [address] Referral ID Status Reason Start Date Expiration Date Visits Requ ested Visits Authorized [id number] Closed 04/06/2022 04/06/2023 1 1 Encounter Details Date Type Department Care Team Description 04/06/2022 Orders Only Division of Lucinda, Colitis Crohn 's (HCC) Gastroenterology in [facility], (Primary Dx) [place], [place] JosieS. 200 [facility] [address] [place] [address] [place], [place] [phone] Social History Tobacco Use Types Packs/Day Years [...] or relatives? How often do you attend anabaptism or 1 to 4 times per year 11/11 jewish services? Do you belong to any clubs or Yes 11/23/2021 organizations such as anabaptism groups, unions, fraternal or athletic groups, or [...] place to sleep or slept in a half-way (including now)? Education Answer Date Recorded What is the highest level of school Master's degree (e.g., M Nataliya, MS, 11/23/2021 you have completed or the highest Connie, MEd, MOLD DESIGN ENGINEER, LORI) degree you have received? Sex Assigned at Date Recorded Female 07/18/2021 2:49 PM CDT documented as of this encounter Plan of Treatment Not on filedocumented as of this encounter Results US Gallbladder and or Biliary Ducts (05/24/2022 4:10 PM CDT) Anatomical Region Laterality Modality Abdomen, Ultrasound RST LOS, Ultrasound ARZ LOS, Ultrasound FLA N/A Ultrasound LOS Specimen (Source) Anatomical Collection Method Collection Time Re ceived Time Location / / Volume Laterality 05/24/2022 4:13 PM CDT Impressions 05/24/2022 4:17 PM CDT No significant change in size of the gal lbladder polyps which remain small. Narrative 05/24/2022 4:17 PM CDT EXAM: US GALLBLADDER AND OR BILIARY DUCTS COMPARISON: Ultrasound 03/01/2021. FINDINGS: Gallbladder: Again seen are two polyps, the largest measuring 3 to 4 mm. No gallstones. No wall thickening or pericholecystic fluid. ??N egative sonographic Sosa sign. Intrahepatic ducts: Not dilated. Common duct: Not dilated. Aorta: Normal caliber. Procedure Note Pascual Mackenzie M.D., M.S. - 05/24/2022F ormatting of this note might be different from the original. EXAM: US GALLBLADDER AND OR BILIARY DUCT S COMPARISON: Ultrasound 03/01/2021. FINDINGS: Gallbladder: Again seen are two polyps, the largest measuring 3 to 4 mm. No gallstones. No wall thickening or pericholecystic fluid. Neg ative sonographic Sosa sign. Intrahepatic ducts: Not dilated. Common duct: Not dilated. Aorta: Normal caliber. IMPRESSION: No significant change in size of the gal lbladder polyps which remain small. Juan Jama IMG US PROCEDURES Vitamin A and Vitamin E (04/30/2022 1:11 PM CDT) P athologist Signature Vitamin A 54.4 32.5 - 78.0 05/02/2022 8:03 [facility] mcg/dL AM CDT Comment: ----ADDITIONAL INFORMATION---- This test was developed and its performa nce characteristics determined by [facility] in a manner consistent with CLIA requirements. This test has not been cleared or approved by the [place] [facility] d and Drug Administration. A-Tocopherol, Vitamin E 6.1 5.5 - 17.0 mg/L 05/02/2022 2:20 PM CDT [facility] Specimen Anatomical Collection Method Collection Time Receive d Time (Source) Location / / Volume Laterality Blood (Blood, 04/30/2022 1:11 PM 05/01/20 Venous) CDT 11:54 AM CDT Juan GalindoSJulia LAB BLOOD NON ADD-ON Performing Organization Address [facility] Phon e Number [facility] [address] [place], [place] [address] [place] [address] CENTER [facility] [place] [address] Laboratory Medicine and Pathology [address] [place] [address] Dr. VALLES Vitamin B12 Assay (04/30/2022 1:11 PM CDT) athologist Signature Vitamin B12 732 699 - 1241 05/01/2022 AUST Assay, S ng/L 3:13 AM [...] GalindoSJulia LAB BLOOD ADD-ON Performing Organization Address City/[facility] Phon e Number [facility]- [address] [place] [address] [facility] [place] [address] [facility] [address] Folate (04/30/2022 1:11 [...] GalindoS. LAB BLOOD ADD-ON Performing Organization Address City/[facility] Code Phon e Number [facility]- [address] [place] [address] [facility] [place] [address] [facility] [address] Ferritin (04/30/2022 1:11 [...] 04/30/20 3:46 Venous) CDT PM CDT Juan RicoBJuliaS. LAB BLOOD ADD-ON Performing Organization Address City/State/ZIP Code Phon e Number [facility]- [address] [place] [address] [place] [address] System in [place] [address] 25-Hydroxyvitamin D2 and D3 (04/30/2022 1:11 PM CDT) athologist Signature 25-Hydroxy D2 <4.0 ng/mL 05/02/2022 [facility] 1:06 PM CDT 25-Hydroxy D3 46 ng/mL 05/02/2022 [facility] 1:06 PM CDT 25-Hydroxy D 46 ng/mL 05/02/2022 [facility] Total 1:06 PM CDT Comment: ----REFERENCE VALUE---- 25-HYDROXY D TOTAL (D2+D3) Optimum level s in the healthy population are 20-50, patients with bone disease may benefit from higher levels within this r presley. ----ADDITIONAL INFORMATION---- This test was developed and its performa nce characteristics determined by [facility] in a manner consistent with [...] Organization Address City/State/ZIP Code Phon e Number [facility] [address] [place], [place] [address] SUPPORT CENTER [facility] [place] [address] Laboratory Medicine and Pathology [address] [place] Prothrombin Time (PT) (04/30/2022 1:11 [...] 22 3:46 Venous) CDT PM CDT Juan GalindoSJulia LAB BLOOD ADD-ON Performing Organization Address City/State/ZIP Code Phon e Number [facility]- [address] [place] [address] [facility] [place] [address] System in [place] [address] (ABNORMAL) Hepatic Function Panel (04/30/2022 1:11 PM CDT) [facility] gist Method Time Signature Bilirubin, Total, P [...] 22 3:46 Venous) CDT PM CDT Juan GalindoSJulia LAB BLOOD ADD-ON Performing Organization Address City/State/ZIP Code Phon e Number [facility]- [address] [place] [address] [facility] [place] [address] System in [place] [address] CBC with Differential, Blood (04/30/2022 1:11 PM [...] Blood (Blood, 04/30/2022 1:11 PM 04/30/20 22 1:12 Venous) CDT PM CDT Juan Jama LAB BLOOD ADD-ON Performing Organization Address City/State/ZIP Code Phon e Number [facility]- [address] [place] [address] [facility] [address] [place] [address] System in [place] [address] (ABNORMAL) Basic Metabolic Panel [...] CDT eGFR-Black/Afric >90 >=60 04/30/2022 OW[place] an Vietnamese mL/min/BSA 4:14 PM CDT Comment: ----ADDITIONAL INFORMATION---- [...] Organization Address City/State/ZIP Code Phon e Number [facility]- [address] [place] [address] [place] [address] System in [place] [address] documented in this encounter Visit Diagnoses Diagnosis Colitis Crohn's (HCC) - Primary Colitis Crohn's (HCC) documented in this encounter Additional Health Concerns Assessment Noted Time PHQ-9 Depression Total Score: 4 11/29/2021 10:43 AM CS T documented as of this encounter Care Teams Armor Senior Sergeant Relationship Specialty Start Date End Date Belkys Marshall APRN, C.N.P., M.S. PCP - General Family Medicine 11/16/[address] [place] [address] documented as of this encounter
--- OUTSIDE RECORDS SUMMARY | 2022-08-31 12:32 | XMS_ITS | Encounter Summary ---
:1995 Author Organization [facility] Address [address] [place] [address] Care Team Providers Name Role Phone Belkys Marshall APRN, C.NVira., M.S. Primary Care Provider +1- [phone] Encounter Details Date Type Department Care Team Description 06/22/2022 Orders Only Division of Gastroenterology in [place], [place], [address] [facility] [address] [address] [place] [address] [place] [address] (Wo rk) Social History Tobacco Use Types Packs/Day Years [...] or relatives? How often do you attend alevism or 1 to 4 times per year 11/11 mu-ism services? Do you belong to any clubs or Yes 11/23/2021 organizations such as alevism groups, unions, fraternal or athletic groups, or [...] place to sleep or slept in a residential (including now)? Education Answer Date Recorded What is the highest level of school Master's degree (e.g., M A, MS, 11/23/2021 you have completed or the highest Connie, MEd, OCCUPATIONAL SAFETY AND HEALTH MANAGER, LORI) degree you have received? Sex Assigned at Date Recorded Female 07/18/2021 2:49 PM CDT documented as of this encounter Plan of Treatment Not on filedocumented as of this encounter Visit Diagnoses Not on filedocumented in this encounter Additional Health Concerns Assessment Noted Time PHQ-9 Depression Total Score: 4 11/29/2021 10:43 AM CS T documented as of this encounter Care Teams Wild Oyster Harvester Relationship Specialty Start Date End Date Belkys Marshall, KARL, C.N.P., M.S. PCP - General Family Medicine 11/16/19 [address] [place] [address] documented as of this encounter
--- OUTSIDE RECORDS SUMMARY | 2022-08-31 12:32 | XMS_ITS | Encounter Summary ---
:1995 Author Organization [facility] Address [address] [place] [address] Care Team Providers Name Role Phone Belkys Marshall APRN, C.NTawanna, M.S. Primary Care Provider +1- [phone] Reason for Referral Outpatient (Routine) - Authorized Specialty Diagnoses / Procedures Referred By Contact Refer red To Contact Diagnoses Lump In The Right Breast Unspecified Quadrant Angela Hassan M.D., Ph.D. [facility] Procedures BI Ultrasound Breast Focused Right [address] [place] [address] Referral ID Status Reason Start Date Expiration Date Visits V isits Requested Authorized [id number] Authorized 04/16/2022 04/16/2023 1 1 Encounter Details Date Type Department Care Team Description 04/16/2022 Orders Only Department of Angela Hassan, Lump In The R ight Obstetrics and Kasey, Ph.D. Breast Unspecified Gynecology in [address] [place] [address] Quadrant (Primary Dx) [place], [place] [address] [facility] [address] [place], [place] [phone] [phone] (Work) [phone] Social History Tobacco Use Types Packs/Day Years [...] or relatives? How often do you attend zoroastrian or 1 to 4 times per year 11/11 mu-ism services? Do you belong to any clubs or Yes 11/23/2021 organizations such as zoroastrian groups, unions, fraternal or athletic groups, or [...] place to sleep or slept in a fci (including now)? Education Answer Date Recorded What is the highest level of school Master's degree (e.g., M A, MS, 11/23/2021 you have completed or the highest Connie, MEd, CHIEF TECHNOLOGY OFFICER, LORI) degree you have received? Sex Assigned at Date Recorded Female 07/18/2021 2:49 PM CDT documented as of this encounter Plan of Treatment Scheduled Orders Name Type Priority Associated Diagnoses Order S chedule BI Ultrasound Breast Imaging RAD - Routine (most Lump In The R ight Expected: Focused Right inpatients and all Breast Unspecified outpatients) Quadrant (Approximate), Expires: 07/17/2023 documented as of this encounter Visit Diagnoses Diagnosis Lump In The Right Breast Unspecified Kerwin edgar - Primary documented in this encounter Additional Health Concerns Assessment Noted Time PHQ-9 Depression Total Score: 4 11/29/2021 10:43 AM CS T documented as of this encounter Care Teams Assistant Unit Forester Relationship Specialty Start Date End Date Belkys Marshall APRN, C.N.P., M.S. PCP - General Family Medicine 11/16/19 [address] [place] [address] documented as of this encounter
--- OUTSIDE RECORDS SUMMARY | 2022-08-31 12:32 | XMS_ITS | Clinical Summary ---
:1995 Author Organization [facility] [place] [address] Care Team Providers Name Role Phone Yari Crane COMPENSATION MANAGER Primary Care Provider Unavailable Allergies Active Allergy Reactions Severity Noted Date Comments Codeine Vomiting Medium 07/06/2008 Topiramate *Unknown 12/31/2021 Low blood press ure, dizziness Medications Medication Sig Dispensed Refills Start Date End Date Status albuterol HFA 90 Inhale 1-2 Puffs by 8.5 g 0 02/10/2017 Active mcg/actuation mouth every 4 hours inhalerIndications: if needed (SOB). Mild intermittent asthma without complication Ustekinumab (STELARA) Inject 1 mL 0 10/10/2018 Active 90 mg/mL subcutaneous every 8 syrgIndications: weeks. Crohn's disease of colon with complication (HC) mercaptopurine Take 2.5 Tablets 0 12/31/2021 Active (PURINETHOL) 50 mg (125 mg) by mouth tablet once daily. Take 1 Tablet by 0 12/31/2021 Ac tive [id number] mouth once daily. tab tablet Ustekinumab (Stelara) Inject the contents 2 mL 0 11/01/20 21 Active 90 mg/mL syrg of 1 syringe (90 mg) subcutaneously every 8 weeks. Refrigerate, do not freeze. Rotate sites. mercaptopurine Take 1 tablet by 90 Tablet 1 12/22/2021 Active (PURINETHOL) 50 mg mouth once daily on tablet an empty stomach norethindrone, Take 1 tablet by 84 Tablet 3 04/12/2022 Active Contraceptive, mouth once a day (MICRONOR, 28,) 0.35 mg tablet cholecalciferol Take 1,000 units by 0 Active (Vitamin D) 1,000 mouth once daily. unit tablet cyanocobalamin Take 1,000 mcg by 0 Active (Vitamin B-12) 1,000 mouth once daily. mcg tablet azithromycin Take 2 tablets 6 Tablet 0 08/24/2022 A ctive (ZITHROMAX) 250 mg (500mg) by mouth on tablet day 1, then take 1 tablet daily on days 2 to 5. 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 Hallux valgus (acquired) 07/07/2008 Estimated Date of Delivery Comments Yes 02/26/2022 Immunizations Name Administration Dates Next Due [id number] 05/21/1997, 1994, 1994 DTaP-IPV (Kinrix) 04/17/1999, 03/17/1998 HIB PRP-T (ActHIB,Hiberix) 05/24/1995 Hepatitis A (Peds) 07/21/2007, 06/24/2006 Hepatitis B (Peds) 09/28/2004, 01/28/1995, 1994 Human Papilloma Virus Vaccine 10/13/2007, 07/21/2007, 2005 Influenza Virus, Unspecified 08/06/2016, 10/27/2013, 013, 11/20/2012 Influenza, IIV3 (Age >=3 years) 11/20/2012 Influenza, IIV4 09/15/2018, 08/06/2016, 11/07/2015, 08/17/2014, 10/27/2013 Influenza, IIV4 (=>6mos) MDV 07/22/2017 MMR 04/17/1999, 05/24/1995 Meningococcal Vaccine (Menveo) 04/24/2012, 10/23/2006 Tdap 04/17/2016, 06/24/2006 Tuberculin (PPD) 04/28/2014, 04/21/2014 Varicella Vaccine 12/13/2003 Family History Medical History Relation Name Comments Asthma Brother Good Health Father Other Mother Lupus Other Sister 2 Guiberre Relation Name Status Comments Brother Alive Father Alive Maternal Grandfather Maternal Grandmother Mother Alive Paternal Grandfather Alive Paternal Grandmother Sister 1 Alive Sister 2 Alive Social History Tobacco Use Types Packs/Day Years Used Date Never Smoker Smokeless Tobacco: Never Used Tobacco Cessation: Counseling Given: Yes Alcohol Use Standard Drinks/Week Comments Yes 0 (1 standard drink = 0.6 oz pure alcoho l) Rare Alcohol Habits Answer Date Recorded How often do you have a drink containing alcohol? Not asked How many drinks containing alcohol do you have on a typical Not asked day when you are drinking? How often do you have six or more drinks on one occasion? No t asked Comment: Rare 11/26/2011 Estimated Date of Delivery Comments Yes 02/26/2022 Sex Assigned at Date Recorded Not on file Obstetrics History Para Term AB IAB SAB Ectopic Multiple Living Live Births 2 0 0 0 0 0 0 0 0 0 Date Outcome GA Total Labor/2nd/3rd Weight Sex Delivery Anes PTL Angella A 1 A5 Name Clin Labor Current Comments 32 weeks, high risk per patient Last Filed Vital Signs Vital Sign Reading Time Taken Comments Blood Pressure 129/73 12/31/2021 9:29 AM THEATRICAL DRESSER Pulse 95 12/31/2021 10:22 AM THEATRICAL DRESSER Temperature 36.5 ??C (97.7 ??F) 12/31/2021 9:29 AM THEATRICAL DRESSER Respiratory Rate 18 12/31/2021 9:29 AM THEATRICAL DRESSER Oxygen Saturation 98% 12/31/2021 9:29 AM THEATRICAL DRESSER Inhaled Oxygen Concentration - - Weight 76.4 kg (168 lb 6.4 oz) 12/31/2021 9:29 AM THEATRICAL DRESSER Height 166.4 cm (5' 5.5) 10/10/2018 2:23 PM THEATRICAL DRESSER Body Mass Index 27.6 10/10/2018 2:23 PM THEATRICAL DRESSER Plan of Treatment Health Maintenance Due Date Last Done Comments Hepatitis C screening for age 0302/04/2012 18-79 BMI (ht and wt on same day) for 10/10/2019 10/10/2018, 01/10, age 18+ 04/04/2016 Depression screening for age 12+ 10/10/2019 10/10/2018 Pap test for age 21-65 10/10/2021 10/10/2018, 07/21/2015, 07/21/2015 COVID-19 vaccine series (3 - 10/17/2021 08/22/2021, 021 Booster for Pfizer series) Influenza for age 9-49 07/12/2022 09/15/2018, 07/22/2017, 08/06/2016, Additional history exists Tetanus booster 04/17/2026 04/17/2016, 06/24/2006 Tdap Completed 04/17/2016, 06/24/2006 Results Not on filefrom Last 3 Months Insurance Payer Benefit Plan / Subscriber ID Effective Dates Phone Addre ss Type Group [employer] [id number] 2021-Prese [address] [place] [address] [facility]/Michelle Employer 11/11/[address] [place] (Home) [employer] [phone] (Work) Advance Directives Latest Code Status on File Code Status Date Activated Date Inactivated Comments Full Code 02/05/2017 2:24 PM 02/10/2017 5:11 PM Full Code 02/05/2017 9:59 AM 02/05/2017 11:48 AM Full Code 02/01/2017 5:24 PM 02/05/2017 9:59 AM Full Code 11/09/2013 7:47 AM 11/09/2013 3:44 PM Care Teams Patient Liaison Relationship Specialty Start Date End Date Yari Crane NP PCP - General Emergency Medicine 11/30/15 [address] [place] [address]
--- OUTSIDE RECORDS SUMMARY | 2022-08-31 12:32 | XMS_ITS | Encounter Summary ---
:1995 Author Organization [facility] Address [address] [place] [id number] Care Team Providers Name Role Phone Belkys Marshall APRN, C.N.P., M.S. Primary Care Provider [phone]- [phone] Reason for Referral Outpatient (Routine) - Closed Specialty Diagnoses / Procedures Referred By Contact Refer red To Contact Diagnoses Colitis Crohn's (HCC) [facility] Procedures US Gallbladder and or Biliary Ducts [facility] [address] [place] [phone] Referral ID Status Reason Start Date Expiration Date Visits Requ ested Visits Authorized [id number] Closed 04/06/2022 04/06/2023 1 1 Reason for Visit Outpatient (Routine) - Closed Specialty Diagnoses / Procedures Referred By Contact Refer red To Contact Diagnoses Colitis Crohn's (HCC) [facility] Procedures US Gallbladder and or Biliary Ducts [facility] [address] [place] [phone] Referral ID Status Reason Start Date Expiration Date Visits Requ ested Visits Authorized [id number] Closed 04/06/2022 04/06/2023 1 1 Encounter Details Date Type Department Care Team Description 05/24/2022 Hospital Encounter Department of Javan Jane Crohn's (HCC) Radiology, [facility], in [facility] [place], [place] [address] [place] [phone] Social History Tobacco Use Types Packs/Day Years [...] or relatives? How often do you attend catholic or 1 to 4 times per year 11/11 [facility] services? Do you belong to any clubs or Yes 11/23/2021 organizations such as catholic groups, unions, fraternal or athletic groups, or [...] minutes do you engage in exercise at is 30 min 11/23/2021 level? Stress Answer [...] place to sleep or slept in a detention (including now)? Education Answer Date Recorded What is the highest level of school Master's degree (e.g., M A, MS, 11/23/2021 you have completed or the highest Connie, MEd, WAREHOUSE TEAM LEADER, LORI) degree you have received? Sex Assigned [...] Take 1 tablet by mouth 0 02/23/2022 [id number] 27 daily. mg iron- 1 mg tablet [...] every 8 injectionIndications: weeks. Crohn's Disease (HCC) documented as of this encounter Plan of Treatment Not on filedocumented as of this encounter Procedures Procedure Name Priority Date/Time Associated Comments Diagnosis US GALLBLADDER AND RAD - Routine 05/24/2022 4:10 Colitis Crohn's Re sults for this OR BILIARY DUCTS (most inpatients PM CDT (HCC) procedu re are in and all the results outpatients) section. documented in this encounter Results US Gallbladder and or [...] gal lbladder polyps which remain small. Juan RAMIREZ PROCEDURES documented in this encounter Visit Diagnoses Diagnosis Colitis Crohn's (HCC) documented in this encounter Additional Health Concerns Assessment Noted Time PHQ-9 Depression Total Score: 4 11/29/2021 10:43 AM CS T documented as of this encounter Care Teams Sommelier Relationship Specialty Start Date End Date Belkys Marshall, KARL, C.N.P., M.S. PCP - General Family Medicine 11/16/[address] [place] [address] documented as of this encounter
--- OUTSIDE RECORDS SUMMARY | 2022-08-31 12:32 | XMS_ITS | Encounter Summary ---
:1995 [address] [facility] Address [address] [place] [address] Care Team Providers Name Role Phone Belkys Marshall APRN, C.N.P., M.S. Primary Care Provider [phone]- [phone] Reason for Referral Outpatient (Routine) - Closed Specialty Diagnoses / Procedures Referred By Contact Refer red To Contact Diagnoses Lump In The Right Breast Unspecified Quadrant Angela Hassan M.D., Ph.D. [facility] Procedures BI Ultrasound Breast Focused Right [address] [place], [place] [phone] Referral ID Status Reason Start Date Expiration Date Visits Requ ested Visits Authorized [id number] Closed 04/06/2022 04/06/2023 1 1 Reason for Visit Outpatient (Routine) - Closed Specialty Diagnoses / Procedures Referred By Contact Refer red To Contact Diagnoses Lump In The Right Breast Unspecified Quadrant Angela Hassan M.D., Ph.D. [facility] Procedures BI Ultrasound Breast Focused Right [address] [place] [address] Referral ID Status Reason Start Date Expiration Date Visits Requ ested Visits Authorized [id number] Closed 04/06/2022 04/06/2023 1 1 Encounter Details Date Type Department Care Team Description 04/11/2022 Hospital Encounter Department of Angela Hassan, Lump In The Right Radiology in [place]., Ph.D. Breast Unspecified [place], [place] [address] Quadrant [address] [place] [phone] Social History Tobacco Use Types Packs/Day Years [...] or relatives? How often do you attend mormonism or 1 to 4 times per year 11/11 bahai services? Do you belong to any clubs or Yes 11/23/2021 organizations such as mormonism groups, unions, fraternal or athletic groups, or [...] place to sleep or slept in a usp (including now)? Education Answer Date Recorded What is the highest level of school Master's degree (e.g., Naima An, MS, 11/23/2021 you have completed or the highest Connie, MEd, GREIGE MENDER, LORI) degree you have received? Sex Assigned [...] Take 1 tablet by mouth 0 02/23/2022 [id number]-[id number]-FA 27 daily. mg iron- 1 mg tablet [...] Procedure Name Priority Date/Time Associated Comments Diagnosis BI ULTRASOUND RAD - Routine 04/11/2022 1:14 Lump In The Right Resul ts for this BREAST FOCUSED (most inpatients PM CDT Breast Unspecified pro cedure are in RIGHT and all Quadrant the results outpatients) section. documented in this encounter Results (ABNORMAL) BI Ultrasound Breast Focused Right (04/11/2022 1:14 PM CDT) Anatomical Region Laterality Modality Breast, Breast Imaging RST LOS, Breast Imaging ARZ LOS, Ela st Right Ultrasound Imaging FLA LOS Specimen (Source) Anatomical Collection Method Collection Time Re ceived Time Location / / Volume Laterality 04/11/2022 1:16 PM CDT Impressions 04/11/2022 1:28 PM CDT No significant change in the size of the palpable mass at 9 o'clock 3 cm from the right nipple. This may represent a lactating a denoma. RECOMMENDATION: ??Short-Term Follow-Up 6 Month Follow-up right breast ultrasound in [address] [place] [address] is recommended. The patient was instructed to [...] a lactating a denoma. RECOMMENDATION: Short-Term Follow-Up 6 M [facility] Follow-up right breast ultrasound in 6 m [facility] is recommended. The patient was instructed to notify her provider if the mass increases in si ze. ASSESSMENT: BI-RADS: 3: Probably Benign. Angela Hassan M.D., Ph.D. IMG BI PROCEDURES documented in this encounter Visit Diagnoses Diagnosis Lump In The Right Breast Unspecified Kerwin edgar documented in this encounter Additional Health Concerns Assessment Noted Time PHQ-9 Depression Total Score: 4 11/29/2021 10:43 AM CS T documented as of this encounter Care Teams Back Panel Padder Relationship Specialty Start Date End Date Belkys Marshall APRN, C.N.P., M.S. PCP - General Family Medicine 11/16/19 [address] [place] [address] documented as of this encounter
--- OUTSIDE RECORDS SUMMARY | 2022-08-31 12:32 | XMS_ITS | Encounter Summary ---
:1995 Author Organization [facility] Address [address] [place] [address] Care Team Providers Name Role Phone Belkys Marshall APRN, C.N.P., M.S. Primary Care Provider +1- [phone] Reason for Referral Outpatient (Routine) - Closed Specialty Diagnoses / Procedures Referred By Contact Refer red To Contact Diagnoses Colitis Crohn's (HCC) [facility] Procedures Colonoscopy restricted [facility] [address] [place] [phone] Referral ID Status Reason Start Date Expiration Date Visits Requ ested Visits Authorized [id number] Closed 04/06/2022 04/06/2023 1 1 Reason for Visit Outpatient (Routine) - Closed Specialty Diagnoses / Procedures Referred By Contact Refer red To Contact Diagnoses Colitis Crohn's (HCC) [place], [facility] Procedures Colonoscopy restricted [facility] [address] [place] [address] Referral ID Status Reason Start Date Expiration Date Visits Requ ested Visits Authorized [id number] Closed 04/06/2022 04/06/2023 1 1 Encounter Details Date Type Department Care Team Description 05/03/2022 Hospital Encounter Division of [facility] Colitis C piyush's Gastroenterology in y, (HCC) [place], [place], [address] [place] [address] [address] [place] [address] Social History Tobacco Use Types Packs/Day Years [...] or relatives? How often do you attend religion or 1 to 4 times per year 11/11 druze services? Do you belong to any clubs or Yes 11/23/2021 organizations such as religion groups, unions, fraternal or athletic groups, or [...] level of school Master's degree (e.g., Naima An MS, 11/23/2021 you have completed or the highest Connie, MEd, ACTUARIAL CLERK, LORI) degree you have received? Sex Assigned at Date Recorded Female 07/18/2021 2:49 PM CDT documented as of this encounter Last Filed Vital Signs Vital Sign Reading Time Taken Comments Blood Pressure 106/85 05/03/2022 9:15 AM CDT Pulse 77 05/03/2022 9:19 AM CDT Temperature 36.5 ??C (97.7 ??F) 05/03/2022 8:47 AM CDT Respiratory Rate 13 05/03/2022 9:19 AM CDT Oxygen Saturation 100% 05/03/2022 9:19 AM CDT Inhaled Oxygen Concentration - - Weight 63.3 kg (139 lb 8.8 oz) 05/03/2022 7:29 AM CDT Height 165.1 cm (5' 5) 05/03/2022 7:29 AM CDT Body Mass Index 23.22 05/03/2022 7:29 AM CDT documented in this encounter Medications at Time of Discharge [...] Take 1 tablet by mouth 0 02/23/2022 [id number] 27 daily. mg iron- 1 mg tablet [...] Procedure Name Priority Date/Time Associated Comments Diagnosis SURGICAL PATHOLOGY Routine 05/03/2022 8:04 AM Res ults for this CDT procedure are i n the results section. COLONOSCOPY Routine 05/03/2022 7:48 AM Colitis Crohn's RESTRICTED CDT (HCC) COLONOSCOPY Routine 05/03/2022 7:48 AM Colitis Crohn's Result s for this CDT (HCC) procedure are i n the results section. documented in this encounter Results Surgical Pathology (05/03/2022 8:04 AM CDT) Component Value Ref Test Analysis Performed At [facility] [place] Method Time Signature 05/04/2022 DTL 2:58 PM CDT Report Tram Valdez M.D. 05/04/2022 DTL electronically 2:58 PM CDT signed by I verify that I have examined all relevant slides/materials for the specimen(s) and rendered or confirmed the diagnosis. Gross Description A: ?? Received in formalin labeled with the patie nt's name, 05/04/2022 DTL medical record number, and colon-cecum, ascending colon 2:58 PM CDT are five pale haynes-pink irregular soft tissues, ranging from 0.1-0.5 cm in greatest dimension. Specimens are submitted en toto in cassette A1. ??Grossed by AJB. B: ?? Received in formalin labeled with the patient's name, medical record number, and colon-transverse colon are four pale haynes-pink irregular soft tissues, ranging from 0.1-0.3 cm in greatest dimension. Specimens are submitted en toto in cassette B1. ??Grossed by AJB. C: ?? Received in formalin labeled with the patient's name, medical record number, and colon-descending colon are four pale haynes-pink irregular soft tissues, ranging from 0.1-0.7 cm in greatest dimension. Specimens are submitted en toto in cassette C1. ??Grossed by AJB. D: ?? Received in formalin labeled with the patient's name, medical record number, and colon-sigmoid, rectum are four pale haynes-pink irregular soft tissues, ranging from 0.2-0.8 cm in greatest dimension. Specimens are submitted en toto in cassette D1. ??Grossed by AJB. E: ?? Received in formalin labeled with the patient's name, medical record number, and small bowel-ileum, terminal ileum are two pale haynes-pink irregular soft tissues, 0.3 x 0.2 x 0.1 cm and 0.3 x 0.3 x 0.1 cm. Specimens are submitted en toto in cassette E1. ??Grossed by AJB. F: ?? Received in formalin labeled with the patient's name, medical record number, and colon-ascending colon are four pale haynes-pink irregular soft tissues, ranging from 0.4-0.6 cm in greatest dimension. Specimens are submitted en toto in cassette F1. ??Grossed by AJB. G: ?? Received in formalin labeled with the patient's name, medical record number, and colon-transverse colon are six pale haynes-pink irregular soft tissues, ranging from 0.2-0.8 cm in greatest dimension. ?? Specimens are submitted en toto in cassette G1. ??Grossed by AJB. H: ?? Received in formalin labeled with the patient's name, medical record number, and colon-descending colon a a are four pale haynes-pink irregular soft tissues, ranging from 0.2-0.7 cm in greatest dimension. Specimens are submitted en toto in cassette H1. ??Grossed by AJB. I: ?? Received in formalin labeled with the patient's name, medical record number, and colon-sigmoid are three pale haynes-pink irregular soft tissues ranging from 0.2-0.4 cm in greatest dimension. Specimens are submitted en toto in cassette I1. ??Grossed by AJB. Interpretation FINAL DIAGNOSIS 05/04/2022 DTL 2:58 PM CDT A. Colon, Histology, Cecum, Ascending colon, endoscopic biopsy: ?? Colonic mucosa without diagnostic abnormality. No granuloma. ??No dysplasia. B. Colon, Histology, Transverse colon, endoscopic biopsy: Colonic mucosa with mild crypt architecture distortion. ??No active inflammation. ??No granuloma. ??No dysplasia. C. Colon, Histology, Descending colon, endoscopic biopsy: Colonic mucosa without diagnostic abnormality. ??No granuloma. ??No dysplasia. D. Colon, Histology, Sigmoid, Rectum, endoscopic biopsy: Colonic mucosa without diagnostic abnormality. ??No granuloma. ??No dysplasia. E. Terminal Ileum, Histology, Terminal ileum, endoscopic biopsy: ??Normal ileal mucosa. ??No granuloma. ??No dysplasi a. F. Colon, Pseudopolyps, Ascending colon, endoscopic biopsy: Polypoid colonic mucosa. ??No dysplasia. G. Colon, Pseudopolyps, Transverse colon, endoscopic biopsy: Polypoid colonic mucosa. ??No dysplasia. H. Colon, Pseudopolyps, Descending colon, endoscopic biopsy: Polypoid colonic mucosa. ??No dysplasia. I. Colon, Pseudopolyps, Sigmoid, endoscopic biopsy: Polypoid colonic mucosa. ??No dysplasia. Specimen (Source) Anatomical Collection Method Collection Time Re ceived Time Location / / Volume Laterality Biopsy (Colon) 05/03/2022 8:04 AM CDT Biopsy (Colon) 05/03/2022 8:05 AM CDT Biopsy (Colon) 05/03/2022 8:05 AM CDT Biopsy (Colon) 05/03/2022 8:10 AM CDT Biopsy (Ileum) 05/03/2022 8:11 AM CDT Polyp (Colon) 05/03/2022 8:28 AM CDT Polyp (Colon) 05/03/2022 8:31 AM CDT Polyp (Colon) 05/03/2022 8:36 AM CDT Polyp (Colon) 05/03/2022 8:38 AM CDT Narrative This result has an attachment that is no t available. Mohan Ragland M.D. LAB SURG PATH ORDERABLES Performing Organization Address City/State/ZIP Code Phon e Number [facility] - [address] [place], [place] [address] [facility] [place] [address] [facility] [address] Colonoscopy (05/03/2022 7:48 AM CDT) Specimen (Source) Anatomical Collection Method Collection Time Re ceived Time Location / / Volume Laterality 05/03/2022 7:48 AM CDT Impressions [facility] - 05/03/2022 8:49 AM CDT Post-op Diagnoses: ? - The examined portion of the ile um was normal. Biopsied. ? - Simple Endoscopic Score for Unit Secretary hn's Disease: 0, mucosal inflammatory ? changes. Biopsied. Clip (MR pau pierre) was placed on a biopsy site in ? the descending colon. ? - EXTENSIVE pseudopolyps were fou nd in the sigmoid colon, in the ? descending colon, in the transver se colon and in the ascending colon. ? Biopsied. Narrative [facility] [place] - 05/03/2022 8:49 AM CDT Gonda 9 GI GI Patient Name: Laurel Mcdonald Date of : 1995 Age: 27 Gender: Female Procedure Date: 05/03/2022 Procedure: ? Colonosc opy Providers: ? Mohan Ragland MD Referring Provider: ?CHESTER Pierce Pre-op Diagnoses: ?High risk c olon cancer surveillance: Crohn's colitis ? of 8 (or more) years duration with one- third (or ? mor e) of the colon involved Recommendation: ? - Await pathology results. ? - Return to referring physician a s previously scheduled. ? - PATHOLOGY/MICROBIOLOGY FOLLOW-U P: The ordering provider is responsible ? for reviewing results from specim ens obtained during this endoscopic ? procedure and communicating the f indings to the patient. If guidance is ? needed for interpreting endoscopi c findings or pathology results, please ? consider a gastroenterology e-con sult. Findings: ? The terminal ileum appeared cory l. Biopsies were taken with a cold ? forceps for histology. ? The Simple Endoscopic Score for C rohn's Disease was determined based on ? the endoscopic appearance of the mucosa in the following segments: ? - Ileum: Findings include no ulce rs present, no ulcerated surfaces, no ? affected surfaces and no narrowin gs. Segment score: 0. ? - Right Colon: Findings include n o ulcers present, no ulcerated ? surfaces, no affected surfaces an d no narrowings. Segment score: 0. ? - Transverse Colon: Findings incl ude no ulcers present, no ulcerated ? surfaces, no affected surfaces an d no narrowings. Segment score: 0. ? - Left Colon: Findings include no ulcers present, no ulcerated surfaces, ? no affected surfaces and no narro wings. Segment score: 0. ? - Rectum: Findings include no ulc ers present, no ulcerated surfaces, no ? affected surfaces and no narrowin gs. Segment score: 0. ? - Total SES-CD aggregate score: 0 . Four biopsies were taken every 10 cm ? with a cold forceps. These biopsy specimens were sent to Pathology. For ? hemostasis, one hemostatic clip w as successfully placed (MR conditional) ? on a biopsy site in the descendin g colon. There was no bleeding at the ? end of the procedure. ? EXTENSIVE (more than 50) pseudopo lyps were found as patches surrounded ? by normal mucosa in the sigmoid c olon, in the descending colon, in the ? transverse colon and in the ascen ding colon. The rectum was spared. ? Biopsies were taken with a cold f orceps for histology. Procedural Details: ? The patient was seen, evaluated, history reviewed, airway and heart-lung ? exams were performed by licensed provider and were satisfactory for ? planned level of sedation care. ? The risks, benefits and alternati ves for the procedure and sedation were ? discussed and informed consent wa s obtained. A procedural pause was ? conducted in the presence of assi sting personnel to verify the correct ? patient identity and procedure to be performed. Throughout the ? procedure, the patient's blood pr essure, pulse, and oxygen saturations ? were monitored continuously. The Pediatric Colonoscope was introduced ? under direct vision through the a nus and advanced to 5 cm into the ? ileum. The colonoscopy was perfor med without difficulty. The patient ? tolerated the procedure well. The quality of the bowel preparation was ? evaluated using the BBPS ([place] Bowel Preparation Scale) with scores ? of: Right Colon = 3, Transverse C olon = 3 and Left Colon = 3 (entire ? mucosa seen well with no residual staining, small fragments of stool or ? opaque liquid). The total BBPS sc ore equals 9. Estimated Blood Loss: ?Estimated blo od loss was minimal. Complications: ? No immedia te complications. Sedation: ? Moderate (conscious) sedation was personally administered by an ? anesthesia professional. The foll owing parameters were monitored: oxygen ? saturation, heart rate, blood pre ssure, and response to care. Attending Participation: I personally pe rformed the entire procedure. Mohan Ragland MD 05/03/2022 8:48:52 AM This report has been signed electronical ly. Number of Addenda: 0 Juan [facility] GI PROCEDURE ORDERAB LES Performing Organization Address City/State/ZIP Code Phon e Number [employer] NA documented in this encounter Visit Diagnoses Diagnosis Colitis Crohn's (HCC) documented in this encounter Administered Medications Inactive Administered Medications - up to 3 most recent administrations Medication Order MAR Action Action Date Dose Rate Site simethicone drops (MYLICON) Given 05/03/2022 8:23 AM CDT 1 mL Code/trauma/sedation medication, Starting on Pura 05/03/22 at 0823 documented in this encounter Additional Health Concerns Assessment Noted Time PHQ-9 Depression Total Score: 4 11/29/2021 10:43 AM CS T documented as of this encounter Care Teams Vat Tender Relationship Specialty Start Date End Date Belkys Marshall APRN, C.N.P., M.S. PCP - General Family Medicine 11/16/[address] [place] [address] documented as of this encounter
--- OUTSIDE RECORDS SUMMARY | 2022-08-31 12:32 | XMS_ITS | Encounter Summary ---
:1995 Author Organization [facility] Address [address] [place] [address] Care Team Providers Name Role Phone Belkys Marshall APRN C.N.P., M.S. Primary Care Provider +1- [phone] Encounter Details Date Type Department Care Team Description 05/03/2022 Ancillary Procedure Department of Gastroenterology Social History Tobacco Use Types Packs/Day Years [...] or relatives? How often do you attend shinto or 1 to 4 times per year 11/11 methodist services? Do you belong to any clubs or Yes 11/23/2021 organizations such as shinto groups, unions, fraternal or athletic groups, or [...] place to sleep or slept in a [place] (including now)? Education Answer Date Recorded What is the highest level of school Master's degree (e.g., M A, MS, 11/23/2021 you have completed or the highest Connie, MEd, EGG PROCESSING SUPERVISOR, LORI) degree you have received? Sex Assigned at Date Recorded Female 07/18/2021 2:49 PM CDT documented as of this encounter Plan of Treatment Not on filedocumented as of this encounter Procedures Procedure Name Priority Date/Time Associated Comments Diagnosis GASTROENTEROLOGY IMAGE Routine 05/03/2022 7:50 Re sults for this EXAM AM CDT procedure are i n the results section. documented in this encounter Results Colonoscopy-Gastroenterology Image Exam (05/03/2022 7:50 AM CDT) Specimen (Source) Anatomical Collection Method Collection Time Re ceived Time Location / / Volume Laterality 05/03/2022 7:48 AM CDT Narrative [facility] - 05/03/2022 9:24 AM CDT This order has been created and auto-finalized to support the import of images acquired without order. The clini pierre documentation to support these images can be found on the encounter alexis t produced images. Provider Not In System IMG NON RAD IMAGING PROCEDUR ES Performing Organization Address City/State/ZIP Code Phon e Number [facility] NA documented in this encounter Visit Diagnoses Not on filedocumented in this encounter Additional Health Concerns Assessment Noted Time PHQ-9 Depression Total Score: 4 11/29/2021 10:43 AM CS T documented as of this encounter Care Teams Foster Care Worker Relationship Specialty Start Date End Date Belkys Marshall APRN, C.N.P., M.S. PCP - General Family Medicine 11/16/[address] [place] [address] documented as of this encounter
--- OUTSIDE RECORDS SUMMARY | 2022-08-31 12:32 | XMS_ITS | Encounter Summary ---
:1995 Author Organization [facility] Address [address] [place] [address] Care Team Providers Name Role Phone Belkys Marshall APRN C.N.Mame., M.S. Primary Care Provider +1- [phone] Encounter Details Date Type Department Care Team Description 02/28/2022 Orders Only Pharmacy Prior Auth Ruth Hernandez [phone] Social History Tobacco Use Types Packs/Day Years [...] or relatives? How often do you attend islam or 1 to 4 times per year 11/11 rastafari services? Do you belong to any clubs or Yes 11/23/2021 organizations such as islam groups, unions, fraternal or athletic groups, or [...] have completed or the highest Connie, MEd, REGISTERED NURSE BEHAVIORAL HEALTH, LORI) degree you have received? Sex Assigned at Date Recorded Female 07/18/2021 2:49 PM CDT documented as of this encounter Plan of Treatment Not on filedocumented as of this encounter Visit Diagnoses Not on filedocumented in this encounter Additional Health Concerns Assessment Noted Time PHQ-9 Depression Total Score: 4 11/29/2021 10:43 AM CS T documented as of this encounter Care Teams Low Pressure Boiler Tender Relationship Specialty Start Date End Date Belkys Marshall, KARL, C.N.P., M.S. PCP - General Family Medicine 11/16/19 [address] [place] [address] documented as of this encounter
--- OUTSIDE RECORDS SUMMARY | 2022-08-31 12:32 | XMS_ITS | Clinical Summary ---
:[address] [facility] Address [address] [place] [address] Care Team Providers Name Role Phone Belkys Marshall APRN C.N.P., M.S. Primary Care Provider [phone]- [phone] Source Comments Patient records contain information from all sites at [facility]. For routine questions regarding patient records, call [phone] during business hours, M-F 8:00 AM - 5:00 PM Central Time. Record requests for emergency care only can be directed to [phone] at any time.[facility] Allergies Active Allergy Reactions Severity Noted Date Comments Codeine GI intolerance 10/30/2012 Topiramate Other (see comments) 08/21/2019 Medications Medication Sig Dispensed Refills Start Date End Date Status albuterol inhaler Inhale 1-2 puffs 1 Inhaler 1 07/29/2020 Active every 4 (four) hours as needed for wheezing or shortness of breath. cyanocobalamin Take 1 tablet (1,000 90 tablet 0 07/08/2021 Active (vitamin B-12) 1,000 mcg total) by mouth mcg tablet daily. ustekinumab Inject 90 mg 180 mL 2 11/01/2021 Acti ve (Stelara) 90 mg/mL subcutaneously every injectionIndications 8 weeks. : Crohn's Disease (HCC) mercaptopurine Take 1 tablet (50 mg 90 tablet 3 12/22/2021 Active (PURINETHOL) 50 mg total) by mouth tablet daily. on an empty stomach Additional Information Patient taking differently: 50 mg oral Daily at bedtime, on an empty stomach, Reported on 02/21/2022 cholecalciferol, vitamin D3, 25 Take 25 mcg by mouth 0 Active mcg (1,000 Unit) tablet daily. docusate sodium (COLACE) 100 mg Take 1 capsule (100 30 capsule 6 02/23/2022 Active capsule mg total) by mouth 2 (two) times a day as needed for constipation. acetaminophen (TYLENOL) 500 mg Take 2 tablets (1,000 0 02/23/2022 Active tablet mg total) by mouth every 6 (six) hours. sennosides (SENOKOT) 8.6 mg Take 2 tablets (17.2 0 0 02/23/2022 Active tablet mg total) by mouth at bedtime. Additional Information Patient not taking. Reported on 04/06/2022 lidocaine (LIDODERM) 5 % Place 1 patch on the skin 14 patch 1 02/23/2022 Active daily. Apply to skin above incision as needed oxyCODONE (ROXICODONE) 5 mg Take 1 tablet (5 mg total) 6 tablet 0 02/23/2022 Active immediate release by mouth every 6 (six) tabletIndications: Acute hours as needed for Pain moderate pain or score 4-6 of 10 Indication: Acute Pain. simethicone (MYLICON) 80 mg Chew 2 tablets (160 mg 0 02/23/2022 Active chewable tablet total) every 6 (six) hours as needed for flatulence (for abdominal gas). Additional Information Patient not taking. Reported on 04/06/2022 Take 1 tablet by 0 02/23/2022 Ac tive xeepcgy-Jb-dtoc-FA 27 mg mouth daily. iron- 1 mg tablet norethindrone (MICRONOR) Take 1 tablet 84 tablet 4 04/06/202204/06 Active 0.35 mg tablet (0.35 mg total) by mouth daily. mupirocin (BACTROBAN) 2 Apply 1 22 g 0 04/06/2022 Active % ointment application topically 3 (three) times a day. Apply to nipples enoxaparin (LOVENOX) 80 Inject 0.8 mL 16 mL 0 01/11/2022 0 01/12 Discontinued mg/0.8 mL injection (80 mg total) /2021 (Dose adjustment) under the skin 2 (two) times a day for 10 days. Active Problems Patient Care Coordination Note Formatting of this note might be differe nt from the original. ~~~~~~~~~~~~~~~~~~~~~~~~~~~~~~~~~~~~~~~~~~~~~~~~~~~~~~~~~~~~~~~~~~~~~~~~~~~~~~~~ ~~~~~~~~~~~~~~~~~~~~~~~~~~~~~~~~~~~~~~~~~~~~~~~~~~~~~~~~~~~~~~~~~~~~ Study participant in IRB [id number]: Davin PAYNE After a complete review of this research study, this patient decided to participate and has signed the informed consent form. She meets all eligibility criteria and agrees to study activities to contrib ramon to the understanding of the investig ational device. Nursing staff: Please see the [facility] binder above the telegraph messenger computer -> Upon admission for delivery (as time allows), please alert the Nurse Specialty Person of the patient's admission at [email or web address] or by calling [phone] during business hours Saturday-. Other hours please contact study stasamuel baker on the [facility] calendar in the binder. ~~~~~~~~~~~~~~~~~~~~~~~~~~~~~~~~~~~~~~~~~~~~~~~~~~~~~~~~~~~~~~~~~~~~~~~~~~~~~~~~ ~~~~~~~~~~~~~~~~~~~~~~~~~~~~~~~~~~~~~~~~~~~~~~~~~~~~~~~~~~~~~~~~~~~~ Delivery Plan: IOL scheduled for 4/11 (3 9 weeks), COVID screening 02/18 Primary OB Provider: Chapo Salinas Service: OB Pertinent medical issues: Crohn's, Covid -19 in Abn pap with colpo spring 2020 Psychosocial Concerns: Antepartum: Genetics Desires & consult ordered Last pap: 02-01-21 ASCUS. Colpo done 02-27 Rubella/Varicella status: Rubella Positi ve/Varicella Positive HPV series complete: x3 2006 Qualify for aspirin: Rhogam: NA Tdap: given 11/29/21 Influenza Vaccine: 08-01-2021 JAO Covid Vaccine: 08/01/2021, 08/22/2021 PHQ - done 08/01/2021, repeat at 28 weeks - done 11/29/2021, repeat post 28 week labs - done - WNL GBS - done - 01/30/2022 - No Growth Education: Desires IPC NOB - Early - done - 08/01/2021 - cd Mid - done, 10/03/2021 (ST) Late - done 11/29/2021 mas Delivery/: Genetic testing at delivery: DVT prophylaxis indicated: PP tests to be ordered: Problem Noted Date Hemorrhage Delayed With Delivery 02/22/2022 Section Delivery 02/20/2022 Overview: The patient was admitted to the [facility] for induction of labor. Her was complicated by COVID 19 and Crohn's colitis. Her labor course was induced with vaginal cytotec, cook cathter e and augmented with artificial rupture of membranes and IV pitocin, utilizing epidural anesthesia for pain management. Complications of labor included failure to descend. She had a primary delivery, del ivering a liveborn male with weight of 3.91 kg . Gestational age: 39w1d. occurred: 02/20/2022 , 5:32 PM Both mother and baby were in stable cond ition at the conclusion of the procedure. When the patient met appropriate criteria, she was transferred to the floor. The remainder of her course was uncomplicated. She received h er care at [facility]. Lump In The Right Breast Unspecified Quadrant 02/06/20 Personal History Of Infectious And Parasitic Disease ( COVID-19) 11/09/2021 Care And Lactating 07/18/2021 Abnormal Pap Smear Personal History 02/12/2021 Overview: Pap smears normal (done at outside [facility]). January 2021: ASC-H with + other HPV. 02/27/2021: Colposcopy LSIL. .Repeat Pap smear with HPV Co testing in 12 months. Polyp Gallbladder 07/29/2020 Overview: Followed by GI. Incidental finding on ab dominal US 2018. 1 year surveillance US Aug 2020 showed small growth. Surveillance US scheduled for February 2021. Last Assessment & Plan: Followed by GI. US scheduled for next mo nth with labs. Fatigue 07/29/2020 Overview: Reports longstanding struggle with fatig ue in setting of Crohn's. Worsened Jul 2020. Reports this has since improved and no longer an ongoing concern. Last Assessment & Plan: Improved. Follow-up as needed. 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 Endocrinology consult Sep 2019. Thyroid ultrasound demonstrated goiter and findings consistent with the elevated TPO antibody/Amador's. Upon recheck labs normalized. Family history of both hyper and hypothyroidism in a paternal aunt and pa ternal grandmother respectively. Lab Results Component Value Date TSH 1.7 04/14/2020 [id number] 09/28/2019 Last Assessment & Plan: Re-check thyroid labs due to worsening i n fatigue. Maintenance Health Adult 01/19/2020 Overview: Immunizations: Up-to-date. Tobacco/Alcohol/Illicit drugs: Refer to social history. -Lung cancer screening: Lifetime non-smo ker. Diet/Exercise: General diet. Active. BMI: Body mass index is 22.85 kg/m??. BP: BP 109/73 (BP Location: Left arm, Pa tient Position: Sitting, Cuff Size: Regular) Comment: average Glucose: Normal, Aug 2019 ([facility]). Lipid panel: Normal, Sep 2015 ([facility]). Mammogram: No fam hx. Age 39. Pap smear: No hx of abnormal. Last done Sep 2018 (outside facility). Due 2020. Colonoscopy/Cologuard: Crohn's, see over view. HIV: negative, 2018. Bone Density: Age 64 or sooner if risk f actors. Safety Attendant history: G0. Menarche 12. Cycles regular naturall y with cramping. Has migraines with aura. Placed on progesterone only control and menses sporadic up until the last couple months when she has been having m ore frequent and heavier bleeding. Sexua lly active in monogamous relationship. Last Assessment & Plan: Will update pap smear today. With regard to abnormal vaginal bleeding suspect this is secondary to mini-pill in absence of any other symptoms. Will obtain test and STI testing as a precaution. Discussed option of transvaginal US to rule-out other etiologies if desired. She is comfortable deferring for now. Discussed option to switch to other form of progesterone only contraceptive and she pr efers to hold off for now and see what h appens with menses. Colitis Crohn's 02/14/2017 Overview: Formatting of this note is dif ferent from the original. Followed by GI. Most recent visit April 12. Last colonoscopy 04/2020, normal. Enterography of 12/2018 was also normal. Meds: Stelara 90 mg every 8 weeks. Nortr iptyline 25 mg daily HS for nausea. Mercaptopurine 50 mg daily to prevent rejection of Stelara. Diagnosed with Crohn's colitis in February 2017. She was initially treated with Remicade however she developed antibodies and had to be switched to Humira and Imuran. She could not tolerate Imuran due to s corey effects. ??She had a colonoscopy in August 08, 2018 to follow up response which showed mildly active chronic inflammation. Unfortunately, she developed antibodies to Humira and subsequently transitioned to Stelara 10/2018. Last Assessment & Plan: Stable. Followed by GI. Asthma Mild Intermittent 11/23/2012 Overview: Diagnosed 6th grade via testing. No hospitalizations. No oral prednisone bursts. Has been off medication for many years w ithout symptoms. Used albuterol once in the last few months prior to a run. Currently asymptomatic. Last Assessment & Plan: Stable. Continue as needed albuterol. Resolved Problems Problem Noted Date Resolved Date Candidiasis Oral 07/29/2020 02/01/2021 Overview: Reports a couple week history of strong foul breath, cotton mouth, and new white coating on her tongue. Denies loss of taste, sore throat, or trouble swallowing. Last Assessment & Plan: Suspect this is oral ita. Reviewed t reatment options and for convenience will treat with oral diflucan for 7 days. May extend to 14 days if not resolved after 7. Follow-up if persists despite 14 day course. 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 from Last 3 Months Immunizations Name Administration Dates Next Due 4vHPV (discontinued) 10/13/2007, 07/21/2007, 10/23/2006 DTaP-IPV 04/17/1999, 03/17/1998 DTaP-IPV/Hib (Pentacel) 05/21/1997, 1994, 1994 HepA Pediatric/Adolescent 07/21/2007, 06/24/2006 HepB Adult (HEPLISAV-B) 04/25/2021 HepB Pediatric/Adolescent 09/28/2004, 01/28/1995, 1994 Hib (PRP-T) (ACTHIB, HIBERIX) 05/24/1995 MCV4 (Menveo) 04/24/2012, 10/23/2006 MMR 04/17/1999, 05/24/1995 PCV13 04/29/2020 PPSV23 12/07/2020 SARS-COV-2 (COVID-19) - PFIZER (12 08/22/2021, 08/01/2021 years or older) Tdap 11/29/2021, 04/17/2016, 06/24/2006 PATRICIA 12/13/2003 influenza vaccine quad 08/01/2021, 09/05/2020, 09/08/2019, (FLUZONE/FLUARIX) (6 months and 08/06/2016, 10/27/2013 older)(PF) Family History Medical History Relation Name Comments Asthma Brother Marshal Depression Brother Marshal Hyperlipidemia Father Dru Sleep apnea Father Dru Thyroid disease Father's Sister Ailyn Calle Hyperthyroidism removed right lobe. Biop sy & measure left lob e nodule annually Dementia Maternal Grandfather Hong Shanks Prostate cancer Maternal Grandfather Hong Shanks Transient ischemic Maternal Grandfather Hong Peine attack Dementia Maternal Grandmother Betty Peine Stroke Maternal Grandmother Betty Peine Transient ischemic Maternal Grandmother Betty Peine attack Other Mother Annette Lupus Clotting disorder Paternal Grandmother Paternal Great Pat ernal Grandmother Katherin Grandmother had Antithrombin 3 deficiency Lung cancer Paternal Grandmother Paternal Grandmother Katherin Thyroid disease Paternal Grandmother Paternal Hypoactive thyroid took Grandmother Katherin Synthroid Anxiety disorder Sister 1 Traci Migraines Sister 1 Traci Migraines Sister 2 Guillan Shelton Breast cancer Neg Hx Colon cancer Neg Hx Ovarian cancer Neg Hx Relation Name Status Comments Brother Marshal Alive Father Dru Alive Father's Sister Ailyn Calle Maternal Grandfather Hong Shanks Maternal Grandmother Betty Shanks Mother April Alive Paternal Grandfather Other unknown bio logical GF Paternal Grandmother Paternal Grandmother Katherin antithrombin 3 Sister 1 Traci Alive Sister 2 Guillan Shelton Alive Guillan Shelton at age 9 Social History Tobacco Use Types Packs/Day Years Used Date Smoking Tobacco: Never Smokeless Tobacco: Never Tobacco Cessation: Counseling Given: No Alcohol Use Standard Drinks/Week Comments Not Currently [...] or relatives? How often do you attend sikhism or 1 to 4 times per year 11/11 advent services? Do you belong to any clubs or Yes 11/23/2021 organizations such as sikhism groups, unions, fraternal or athletic groups, or [...] place to sleep or slept in a retirement (including now)? Education Answer Date Recorded What is the highest level of school Master's degree (e.g., M Kristie, MS, 11/23/2021 you have completed or the highest Connie, MEd, BARREL FILLER HEAD, LORI) degree you have received? Sex Assigned at Date Recorded Female 07/18/2021 2:49 PM CDT Last Filed Vital Signs Vital Sign Reading [...] Mass Index 23.22 05/03/2022 7:29 AM CDT Plan of Treatment Health Maintenance Due Date Last Done Comments CT Colonography 1994 Cologuard 1994 COVID-19 Vaccine (3 - Pfizer risk 09/19/2021 08/22/2021, series) Asthma Action Plan 02/01/2022 02/01/2021 Asthma Control Test Questionnaire 02/01/2022 02/01/2021, Influenza Vaccine (#1) 2022 08/01/2021, 09/05/2020, 09/08/2019, Additional history exists Cervical Cancer Screening 04/06/2023 04/06/2022, 04/06/2022 , 02/01/2021, Additional history exists Pneumococcal vaccine (0-64 years) 12/07/2025 12/07/2020, (3 - PPSV23 if available, else PCV20) Colonoscopy 05/03/2027 05/03/2022, 04/29/2020, 08/08/2018, Additional history exists Colorectal Cancer Surveillance 05/03/2027 DTaP,Tdap,and Td Vaccines (8 - Td 11/29/2031 11/29/2021, , or Tdap) 06/24/2006, Additional history exists HPV Vaccines Completed 10/13/2007, 07/21/2007, 10/23/2006 Hepatitis B Vaccines Completed 04/25/2021, 09/28/2004, 01/28/1995, Additional history exists HIV Screening Completed 08/01/2021, 03/08/2020, 12/11/2017 (Performed elsewhere) Depression Screening (Annual Completed 11/29/2021 PHQ-2) Hepatitis C Screening Completed 02/20/2022, 02/11/2017 Medical Devices Implanted Type Area Support Merchandiser Device Shelf Model / Identifier Expiration Serial / Date Lot Clp Rsp [facility] Endo 235 - [id number] Hardware e.g. [place] [id number] 07/06/2024 [id number] / Implanted: Qty: 1 on 05/03/2022 by [facility] Scientific / ods [id number] Conversions - Default Historical Implant Device Orthopedic Right: Implanted: 09/27/2017 (Quantity not on file) Other Foot Description: Body Location - Foot R. fanny te and screws. Device Status Text - OrthoOthr. Insurance Payer Benefit Plan / Subscriber ID Effective Phone Address T ype Group Dates [facility] [id number] 2017-Pr [phone] Ind emnity RECOVERY CLAIMS [facility] [id number] [place] [address] [id number] 2021-P [phone] PPO OPEN ACCESS resent [id number] [place] [phone] MEDICA MEDICA [id number] 2022-Pre [phone] [address] PPO [employer] sent [phone] [place] [address] Laurel Mcdonald Workers Comp Self 1995 [phone] (Home) [place] [phone] Advance Directives For more information, please contact: [phone] Latest Code Status on File Code Status Date Activated Date Inactivated Comments Full Code 02/19/2022 8:44 AM 02/23/2022 6:12 PM Question Answer Comments Full Code: Not Discussed Due to: Not medically appropriate Care Teams Printing Machine Operator Relationship Specialty Start Date End Date Belkys Marshall, KARL, C.N.P., M.S. PCP - General Family Medicine 11/16/19 [address] [place] [address]
--- OUTSIDE RECORDS SUMMARY | 2022-08-31 12:32 | XMS_ITS | Encounter Summary ---
:1995 Author Organization [facility] Address [address] [place] [id number] Care Team Providers Name Role Phone Belkys Marshall APRN, C.NVira., M.S. Primary Care Provider +1- [phone] Reason for Visit Outpatient (Routine) - Closed Specialty Diagnoses / Procedures Referred By Contact Refer red To Contact Obstetrics and Diagnoses Difficulty Mom Angela Hassan M.D., [facility] Gynecology Ph.D. [address] [place] [phone] Referral ID Status Reason Start Date Expiration Date Visits Requ ested Visits Authorized [id number] Closed 04/06/2022 04/06/2023 1 1 Encounter Details Date Type Department Care Team Description 04/06/2022 Consult Department of Angela Hassan Breastfe eding Obstetrics and Devon., Ph.D. Difficulty Mom Gynecology in [address] [place] [address] [place] [id number] [place], [place] [phone] (Work) [phone] Social History Tobacco Use Types Packs/Day Years [...] or relatives? How often do you attend uatsdin or 1 to 4 times per year 11/11 sikhism services? Do you belong to any clubs or Yes 11/23/2021 organizations such as uatsdin groups, unions, fraternal or athletic groups, or [...] place to sleep or slept in a long term (including now)? Education Answer Date Recorded What is the highest level of school Master's degree (e.g., M A, MS, 11/23/2021 you have completed or the highest Connie, MEd, PACKAGER OR PACKER AND WEIGHER, LORI) degree you have received? Sex Assigned at Date Recorded Female 07/18/2021 2:49 PM CDT documented as of this encounter Miscellaneous Notes Note - Gayla Juares R.N., I.B.C.L.C. - 04/06/2022 3:00 PM CDT SUBJECTIVE Laurel Mcdonald, a 27 y.o., delivered a viable male on 02/20/2022 at 5:32 PM was seen for a Consultation. Consultation Reason for Consult: Breast/nipple concerns OBJECTIVE Maternal Breast Assessment Breast Size: Average Breast Characteristics: Round, Symmetrical Breast Changes/Growth: Yes, Growth/size, Pigment changes Nipple Size: Average Nipple Type-Right: Everted Nipple Assessment-Right: (yellow exudate) Nipple Type-Left: (yellow exudate) Nipple Assessment-Left: Intact Milk Expressed: Yes Assessment Has mother breastfed before?: No. . Exclusive Pump and Bottle Feed: Yes Supplementation: breastmilk Infant Output: 8 voids/24 hours, Clear and Straw-yellow 5 stools/24 hours, Seedy Yellow OBJECTIVE Assessment: response: bottle feeding, content and satiated Presence of jaundice: not present ASSESSMENT/PLAN Concerns/Assessment: Questions related to include: Milk Supply -Storage Sleeps in: On back Safe Sleep Patterns: Firm surface Prescription nipple ointment RX provided. She will let us know if she's not seeing improvement in about a week. Follow Up: { follow up plan:as needed PATIENT EDUCATION Ready to learn, barriers to learning: none Explained process and plan; patient expressed understanding of the content. Gayla Juares R.N., I.B.C.L.C. documented in this encounter Plan of Treatment Not on filedocumented as of this encounter Visit Diagnoses Diagnosis Difficulty Mom documented in this encounter Additional Health Concerns Assessment Noted Time PHQ-9 Depression Total Score: 4 11/29/2021 10:43 AM CS T documented as of this encounter Care Teams Independent Insurance Adjuster Relationship Specialty Start Date End Date Belkys Marshall APRN, C.N.P., M.S. PCP - General Family Medicine 11/16/19 [address] [place] [address] documented as of this encounter
--- OUTSIDE RECORDS SUMMARY | 2022-08-31 12:32 | XMS_ITS | Encounter Summary ---
:1995 Author Organization [facility] Address [address] [place] [id number] Care Team Providers Name Role Phone Belkys Marshall APRN C.N.P., M.S. Primary Care Provider [phone]- [phone] Reason for Visit Outpatient (Routine) - Closed Specialty Diagnoses / Procedures Referred By Contact Refer red To Contact Obstetrics and Angela Hassan M.D., [facility] Gynecology Ph.D. [address] [place] [phone] Referral ID Status Reason Start Date Expiration Date Visits Requ ested Visits Authorized [id number] Closed 02/05/2022 02/05/2023 1 1 Encounter Details Date Type Department Care Team Description 03/12/2022 Virtual Visit Department of Angela Hassan, Care Postpar machelle And Lactating; Obstetrics and Kasey, Ph.D. Section Delivery (HCC) Gynecology in [address] [place] [address] [place] [id number] [place], [place] [phone] (Work) [phone] Social History Tobacco Use Types Packs/Day Years [...] or relatives? How often do you attend orthodox or 1 to 4 times per year 11/11 zoroastrian services? Do you belong to any clubs or Yes 11/23/2021 organizations such as orthodox groups, unions, fraternal or athletic groups, [...] place to sleep or slept in a snf (including now)? Education Answer Date Recorded What is the highest level of school Master's degree (e.g., M A, MS, 11/23/2021 you have completed or the highest Connie, MEd, REAL ESTATE SUBAGENT, LORI) degree you have received? Sex Assigned at Date Recorded Female 07/18/2021 2:49 PM CDT documented as of this encounter Progress Notes Angela Hassan M.D., Ph.D. - 03/12/2022 2:30 PM CDT SUBJECTIVE Consult conducted via real-time audio/video technology by Angela Hassan M.D., Ph.D. in [facility] to the patient in Patient's Home CHIEF COMPLAINT / REASON FOR VISIT Laurel Mcdonald, , is status post , Low Transverse . Antepartum course was complicated by: Crohn disease on Stelara. She also had COVID in . Based on QBL, she had increased bleeding after (1285ml). course has been uncomplicated. Patient is pumping and bottle feeding breast milk. Baby's name is: Sascha Patient's bleeding is decreasing. Patient's bladder/bowel function is as expected. HISTORY [...] comprehensive review of systems was negative. OBJECTIVE MEDICATIONS I am having Ms. Laurel Mcdonald maintain her albuterol, cyanocobalamin, Stelara, mercaptopurine, cholecalciferol (vitamin D3), docusate sodium, acetaminophen, sennosides, lidocaine, oxyCODONE, simethicone, and [id number]. MENTAL STATUS Patient states mood is stable. PHQ9 Score 08/01/2021 11/29/2021 PHQ-9 Total Score (max 27) 1 4 GAD7 Score 08/01/2021 11/29/2021 [id number]-7 Total Score (max 21) 0 0 DIAGNOSTICS I have reviewed the most recent labs- HgB was 11.6 Blood Type: O Pos Antibody Screen: Antibody Screen Date Value Ref Range Status 02/19/2022 Negative Negative Final ASSESSMENT / PLAN #1 and lactating #2 QBL of 1200 #3 Crohn disease #4 Contraception The patient is doing well. She has restarted Stelara and will follow up with Gastroenterology. Patient indicates mood is stable. She has 6 week visit scheduled for 04/06. With regard to contraception, she is planning for natural family planning, but would like to discussfurther at PP visit. Precautions given. PATIENT EDUCATION Ready to learn, barriers to learning: none; learning preferences include listening. Explained diagnosis and treatment plan; patient expressed understanding of the content. Angela Hassan M.D., Ph.D. documented in this encounter Plan of Treatment Not on filedocumented as of this encounter Visit Diagnoses Diagnosis Care And Lactating Section Delivery (HCC) documented in this encounter Additional Health Concerns Assessment Noted Time PHQ-9 Depression Total Score: 4 11/29/2021 10:43 AM CS T documented as of this encounter Care Teams Canal Boat Operator Relationship Specialty Start Date End Date Belkys Marshall, KARL, C.N.P., M.S. PCP - General Family Medicine 11/16/19 [address] [place] [address] documented as of this encounter
--- OUTSIDE RECORDS SUMMARY | 2022-08-31 12:33 | XMS_ITS | Encounter Summary ---
:1995 Author Organization [facility] Address [address] [place] [address] Care Team Providers Name Role Phone Belkys Marshall APRN C.N.P., M.S. Primary Care Provider [phone]- [phone] Encounter Details Date Type Department Care Team Description 02/26/2022 Orders Only Pharmacy Prior Auth M[facility] Bernal [phone] Social History Tobacco Use Types Packs/Day Years [...] or relatives? How often do you attend scientology or 1 to 4 times per year 11/11 gnosticism services? Do you belong to any clubs or Yes 11/23/2021 organizations such as scientology groups, unions, fraternal or athletic groups, or [...] place to sleep or slept in a care home (including now)? Education Answer Date Recorded What is the highest level of school Master's degree (e.g., M Nataliya, MS, 11/23/2021 you have completed or the highest Connie, MEd, RISK CONSULTANT, LORI) degree you have received? Sex Assigned at Date Recorded Female 07/18/2021 2:49 PM CDT documented as of this encounter Plan of Treatment Not on filedocumented as of this encounter Visit Diagnoses Not on filedocumented in this encounter Additional Health Concerns Assessment Noted Time PHQ-9 Depression Total Score: 4 11/29/2021 10:43 AM CS T documented as of this encounter Care Teams Manager Renewable [employer] Relationship Specialty Start Date End Date Belkys Marshall, KARL, C.N.P., M.S. PCP - General Family Medicine 11/16/19 [address] [place] [address] documented as of this encounter
--- OUTSIDE RECORDS SUMMARY | 2022-08-31 12:33 | XMS_ITS | Encounter Summary ---
:1995 Author Organization [facility] Address [address] [place] [address] Care Team Providers Name Role Phone Belkys Marshall APRN, C.N.Cherise, M.S. Primary Care Provider [phone] Reason for Visit Reason Comments Scheduled Induction 39 Week IOL history of Covid in and Crohns. Auth/Cert Specialty Diagnoses / Procedures Referred By Contact Refer red To Contact Diagnoses 39 Weeks Gestation (HCC) Encounter for delivery without indication (HCC) Procedures IP L & D Referral ID Status Reason Start Date Expiration Date Visits Requ ested Visits Authorized [id number] 1 1 Encounter Details Date Type Department Care Team Description 02/21/2022 [facility] Mary Mcnally M.D. SECTION [facility], [address] Floor [place], [place] [address] [address] [place], [place] [phone] (Wo rk) [id number] [phone] Social History Tobacco Use Types Packs/Day Years [...] or relatives? How often do you attend amish or 1 to 4 times per year 11/11 jehovah's witness services? Do you belong to any clubs or Yes 11/23/2021 organizations such as amish groups, unions, fraternal or athletic groups, or [...] place to sleep or slept in a chcf (including now)? Education Answer Date Recorded What is the highest level of school Master's degree (e.g., M A, MS, 11/23/2021 you have completed or the highest Connie, MEd, PROGRAM ARRANGER, LORI) degree you have received? Sex Assigned at Date Recorded Female 07/18/2021 2:49 PM CDT documented as of this encounter Last Filed Vital Signs Vital Sign Reading Time Taken Comments Blood Pressure 113/71 02/21/2022 7:45 PM CDT Pulse 101 02/21/2022 7:45 PM CDT Temperature 36.8 ??C (98.2 ??F) 02/21/2022 7:45 PM CDT Respiratory Rate 20 02/21/2022 7:45 PM CDT Oxygen Saturation 97% 02/21/2022 7:45 PM CDT Inhaled Oxygen Concentration - - Weight 80 kg (176 lb 5.9 oz) 02/19/2022 8:24 AM CDT Height 165.1 cm (5' 5) 02/19/2022 8:24 AM CDT Body Mass Index 29.35 02/19/2022 8:24 AM CDT documented in this encounter Discharge Summaries Annelise Caicedo APRN, CNM - 02/23/2022 1:57 PM CDT Discharge Summary DEMOGRAPHIC INFORMATION [facility] Number: [id number] Patient Name: Laurel Mcdonald Age: 27 y.o. Birthdate: 1995 Address: [facility] [place] [address] [facility] - Hospital Summary Admission Date: 02/19/2022 Dismissal Date: 02/23/2022 Service: Obstetrics and Gynecology Location: [facility] ([facility] [place], [place]) Discharging provider: Susie Caicedo APRN, CNM FINAL PRIMARY DIAGNOSIS #1 Primary section, at 39w1d ADDITIONAL DIAGNOSES #1 Asthma Mild Intermittent (HCC) #2 Colitis Crohn's ([facility]) #3 Thyroiditis Amador's #4 Care And Lactating ([facility]) #5 Personal History Of Infectious And Parasitic Disease (COVID-19) #6 Section Delivery ([facility]) #7 Hemorrhage Delayed With Delivery ([facility]) BRIEF HOSPITAL COURSE The patient was admitted to the [facility] for induction of labor. Her was complicated by COVID 19 and Crohn's colitis. Her labor course was induced with vaginal cytotec, cook cathtere and augmented with artificial rupture of membranes and IV pitocin, utilizing epidural anesthesia for pain management. Complications of labor included failure to descend. She had a primary delivery, delivering a liveborn male with weight of 3.91 kg . Gestational age: 39w1d. occurred: 02/20/2022 , 5:32 PM Both mother and baby were in stable condition at the conclusion of the procedure. When the patient met appropriate criteria, she was transferred to the floor. The remainder of her postpartumcourse was uncomplicated. She received her care at [facility]. Feeding Method: breast feeding with difficulties at this time, nursing and involved. : The patient is currently . Rh Immune Globulin Given: not applicable DISCHARGE MEDICATIONS Current Outpatient Medications Medication Instructions ??? acetaminophen (TYLENOL) 1,000 mg, oral, Every 6 hours ??? albuterol inhaler 1-2 puffs, inhalation, Every 4 hours PRN ??? cholecalciferol (vitamin D3) (CHOLECALCIFEROL) 25 mcg, oral, Daily ??? cyanocobalamin (VITAMIN B-12) 1,000 mcg, oral, Daily ??? docusate sodium (COLACE) 100 mg, oral, 2 times daily PRN ??? lidocaine (LIDODERM) 5 % 1 patch, transdermal, Daily, Apply to skin above incision as needed ??? mercaptopurine (PURINETHOL) 50 mg, oral, Daily, on an empty stomach ??? oxyCODONE (ROXICODONE) 5 mg, oral, Every 6 hours PRN ??? twepxlf-Uy-bjjz-FA 27 mg iron- 1 mg tablet 1 tablet, oral, Daily ??? sennosides (SENOKOT) 17.2 mg, oral, Daily at bedtime ??? simethicone (MYLICON) 160 mg, oral, Every 6 hours PRN ??? ustekinumab (Stelara) 90 mg/mL injection Inject 90 mg subcutaneously every 8 weeks. ALLERGIES/ADVERSE REACTIONS Allergies Allergen Reactions ??? Codeine GI intolerance ??? Topiramate Other (see comments) Medications prescribed may negatively interact with certain rdjb-[id number]-[id number] medications or foods. Please review medication labels for additional information or call your pharmacy or primary care team with questions. IMMUNIZATIONS GIVEN None Needed CONDITION AT DISCHARGE stable DISCHARGE DISPOSITION Home/Self Care FOLLOW-UP RECOMMENDATIONS AND CONTACT INFORMATION You need to follow-up with your primary maternity care provider team in 6-8 weeks. A Patient Appointment Pulpit Operator will contact you to schedule this visit. If you delivered at [facility] but received your care elsewhere, it may be more convenient to follow-up in your hometown. Ask your [facility] team if this is appropriate.However, if you are still in [place] and experiencing related problems, call the OB Clinic, [address] at [phone] or the [facility] Triage, [place] [address] at [phone]. Clinic phone numbers: [address] [address]: [facility]: [facility]: [facility]: [facility]: or ([phone]) Always call 911 or go to your local emergency department for urgent concerns. If you have a prescription being filled at the Outpatient Pharmacy, please pick it up prior to leaving the hospital. Discharge instructions were provided to the patient and caregivers. documented in this encounter Medications at Time of Discharge Medication Sig Dispensed Refills Start Date End Date acetaminophen (TYLENOL) Take 2 tablets (1,000 0 0 02/23/2022 500 mg tablet mg total) by mouth every 6 (six) hours. lidocaine (LIDODERM) 5 Place 1 patch on the 14 patch 1 % skin daily. Apply to skin above incision as needed oxyCODONE (ROXICODONE) Take 1 tablet (5 mg 6 tablet 0 02/09 5 mg immediate release total) by mouth every 6 tabletIndications: (six) hours as needed Acute Pain for moderate pain or score 4-6 of 10 Indication: Acute Pain. Take 1 tablet by mouth 0 02/23/2022 [id number]-Xl-uogh-FA 27 daily. mg iron- 1 mg tablet sennosides (SENOKOT) Take 2 tablets (17.2 mg 0 8.6 mg tablet total) by mouth at bedtime. simethicone (MYLICON) Chew 2 tablets (160 mg 0 80 mg chewable tablet total) every 6 (six) hours as needed for flatulence (for abdominal gas). albuterol inhaler Inhale 1-2 puffs every 1 Inhaler 1 2019 4 (four) hours as needed for wheezing or shortness of breath. cholecalciferol, Take 25 mcg by mouth 0 vitamin D3, 25 mcg daily. (1,000 Unit) tablet docusate sodium Take 1 capsule (100 mg 30 capsule 6 02/24/20 22 (COLACE) 100 mg capsule total) by mouth 2 (two) times a day as needed for constipation. mercaptopurine Take 1 tablet (50 mg 90 tablet 3 12/22/2021 (PURINETHOL) 50 mg total) by mouth daily. tablet on an empty stomach ustekinumab (Stelara) Inject 90 mg 180 mL 2 11/01/2021 90 mg/mL subcutaneously every 8 injectionIndications: weeks. Crohn's Disease (HCC) documented as of this encounter Progress Notes Annelise Caicedo APRN, ELVIN - 02/23/2022 1:58 PM CDT Rounds Discharge Note SUBJECTIVE Laurel Mcdonald is a 27 y.o. who is post-op day 3 after a primary delivery. The patient was admitted to the [facility] for induction of labor. Her was complicated by COVID 19 and Crohn's colitis. Her labor course was induced with vaginal cytotec, cook cathtere and augmented with artificial rupture of membranes and IV pitocin, utilizing epidural anesthesia for pain management. Complications of labor included failure to descend. She had a primary delivery, delivering a liveborn male with weight of 3.91 kg . Gestational age: 39w1d. occurred: 02/20/2022 , 5:32 PM Both mother and baby were in stable condition at the conclusion of the procedure. When the patient met appropriate criteria, she was transferred to the floor. The remainder of her postpartumcourse was uncomplicated. She received her care at [facility]. Feeding method for her infant: breast feeding with difficulties at this time, nursing and involved. : The patient is currently . REVIEW OF SYSTEMS Physically, she reports the following: pain is well controlled, lochia is minimal, voiding without problem, tolerating a diet, ambulating, passing flatus. Denies blurry vision, headache or dizziness with walking. Denies heavy bleeding or clots. Pt does report some redness and itching on her abdomen above her incision. States it started last night and has not resolved yet. Denies pain, fever or chills. OBJECTIVE VITAL SIGNS Vitals: 02/23/22 0835 BP: 106/69 Pulse: 71 Resp: 16 Temp: 36.8 ??C SpO2: 96% PHQ9 Score 11/29/2021 PHQ-9 Total Score (max 27) 4 ALLERGIES Allergies Allergen Reactions ??? Codeine GI intolerance ??? Topiramate Other (see comments) PHYSICAL EXAM Constitutional: in NAD Alert and oriented Incision well approximated, no abnormal edema, erythema or exudate Mild erythema, no edema, exudate, or lesions noted on abdomen above incision towards umbilicus. Prophylactic RhoGAM: Not applicable O Pos VTE risk: Low risk, no need for prophylaxis ASSESSMENT / PLAN Post-Operative Day 3 Patient to be discharged today. She verbalized viewing the discharge teaching video whichincluded depression, mastitis, uterine/perineal infections, lochia, hemorrhage, DVT signs and symptoms, and family planning. Patient understands to present to clinic or 3C/triage with related concerns. visit is ordered. Plans unsure for contraception. Would like to discuss at 6wk PP visit. Discussed pt's crohn's medications with Dr. Jarquin and Dr. Newberry. They consulted with pt's GI specialist who confirms that pt should continue on current dosing and timing of Stelara and Mercaptopurine. Pt to have f/u consult with GI for ongoing management. See OB physician note for details on plan of care. Advised to inject next Stelara dose in two weeks in thigh rather than abdomen. Rx lidocaine patches and oxycodone 5mg PO q6h prn, #6 tabs for pain management. Pt to apply OTC hydrocortisone and/or benadryl cream to contact dermatitis on abdomen above incisionand monitor. If persistent or worsening symptoms, pt to contact us for additional evaluation. Rx consult for ongoing BF support. visits and labs ordered: 6wk PP visit with CBC and TSH. GI consult for ongoing care management of Crohn's PATIENT EDUCATION Ready to learn, barriers to learning: none; learning preferences include listening. Explained diagnosis and treatment plan; patient expressed understanding of the content. Susie Caicedo APRN, CNM Kyra Jarquin M.D. - 02/23/2022 1:40 PM CDT Contacted on-call GI team to discuss Crohn's medication now the patient is . Per recommendations of the team, no changes need to be made. She can continue taking daily mercaptopurine and continue with her every 8 week injections of Stelara (next due in approximately 2 weeks). She will follow-up with GI outpatient and they will place that order. In regards to her new onset abdominal appear pruritis, a rash does appear present in the distribution of the adhesive drape. Recommend continuing with hydrocortisone as needed and symptoms should continue to improve. If not, she knows to reach out to the team. She had no questions with this plan. Planning to discharge home today. Kyra Jarquin M.D. Irina Vang APRN, ELVIN, D.N.P. - 02/22/2022 7:45 AM CDT SUBJECTIVE Laurel Mcdonald is a 27 y.o. who is post-op day 2 after a primary delivery. The patient was admitted to the [facility] for induction of labor. Her was complicated by COVID 19 and Crohn's colitis. Her labor course was induced with vaginal cytotec, cook cathtere and augmented with artificial rupture of membranes and IV pitocin, utilizing epidural anesthesia for pain management. Complications of labor included failure to descend. She had a primary delivery, delivering a liveborn male with weight of 3.91 kg . Gestational age: 39w1d. occurred: 02/20/2022 , 5:32 PM Both mother and baby were in stable condition at the conclusion of the procedure. When the patient met appropriate criteria, she was transferred to the floor. The remainder of her postpartumcourse was uncomplicated. She received her care at [facility]. : The patient is currently . Feeding method for her infant: breast feeding with difficulties at this time, nursing and involved. REVIEW OF SYSTEMS Physically, she reports the following: pain is well controlled, lochia is minimal, voiding without problem, tolerating a diet, ambulating, passing flatus. OBJECTIVE VITAL SIGNS Vitals: 02/22/22 0700 BP: 100/68 Pulse: 83 Resp: 18 Temp: 36.7 ??C SpO2: PHQ-9: PHQ9 Score 11/29/2021 PHQ-9 Total Score (max 27) 4 ALLERGIES Allergies Allergen Reactions ??? Codeine GI intolerance ??? Topiramate Other (see comments) PHYSICAL EXAM Constitutional: in NAD Alert and oriented Fundal height: 1 below umbilicus Abdomen: Tender to palpation, Incision: Incision approximated and without signs of infection or abnormal drainage. Extremities: Mild edema bilaterally, No calf tenderness O Pos Prophylactic RhoGAM: Not applicable VTE risk: Low risk, no need for prophylaxis ASSESSMENT / PLAN #1 Section Delivery (HCC) #2 Care And Lactating (HCC) #3 Asthma Mild Intermittent ([facility]) #4 Colitis Crohn's ([facility]) #5 Thyroiditis Amador's #6 Personal History Of Infectious And Parasitic Disease (COVID-19) #7 Hemorrhage Delayed With Delivery ([facility]) Post-Operative Day 2 Continue with routine cares. Undecided on contraception. PATIENT EDUCATION Ready to learn, barriers to learning: none; learning preferences include listening. Explained diagnosis and treatment plan; patient expressed understanding of the content. Irina Vang APRN, CNM, D.N.P. Maria Guadalupe Sheppard APRN, CNM - 02/21/2022 10:47 AM CDT SUBJECTIVE Laurel Mcdonald is a 27 y.o. who is post-op day 1 after a primary delivery. The patient was admitted to the [facility] for induction of labor. Her was complicated by COVID 19 and Crohn's colitis. Her labor course was induced with vaginal cytotec, cook cathtere and augmented with artificial rupture of membranes and IV pitocin, utilizing epidural anesthesia for pain management. Complications of labor included failure to descend. She had a primary delivery, delivering a liveborn male with weight of 3.91 kg . Gestational age: 39w1d. occurred: 02/20/2022 , 5:32 PM Both mother and baby were in stable condition at the conclusion of the procedure. When the patient met appropriate criteria, she was transferred to the floor. The remainder of her postpartumcourse was uncomplicated. She received her care at [facility]. : The patient is currently . Feeding method for her : breast feeding successfully REVIEW OF SYSTEMS Physically, she reports the following: pain is well controlled, lochia is minimal, patent Carter catheter, ambulating, not passing flatus. OBJECTIVE VITAL SIGNS Vitals: 02/21/22 0943 BP: 96/61 Pulse: 94 Resp: 18 Temp: 36.8 ??C SpO2: 96% PHQ-9: PHQ9 Score 11/29/2021 PHQ-9 Total Score (max 27) 4 ALLERGIES Allergies Allergen Reactions ??? Codeine GI intolerance ??? Topiramate Other (see comments) PHYSICAL EXAM Alert and oriented Fundal height: At umbilicus Abdomen: Tender to palpation, appropriately so, just now a little over 12 hours since delivery Incision: Covered at this time. Dressing absent of abnormal drainage. Extremities: Mild edema bilaterally O Pos Prophylactic RhoGAM: Not applicable VTE risk: Low risk, no need for prophylaxis ASSESSMENT / PLAN #1 Section Delivery (HCC) #2 Personal History Of Infectious And Parasitic Disease (COVID-19) #3 Colitis Crohn's (HCC) #4 Thyroiditis Amador's #5 Asthma Mild Intermittent (HCC) Post-Operative Day 1 Continue with routine cares. Plans NFP for contraception. QBL indicates PPH value, however no PPH listed as complication of C/S nor extra documentation of uterotonic use at delivery or progress notes that indicated bleeding after. AM hgb done was 11.6, patient has not been up yet to note any dizziness.RN to notify service if concerns later today when up ambulating. PATIENT EDUCATION Ready to learn, barriers to learning: none; learning preferences include listening. Explained diagnosis and treatment plan; patient expressed understanding of the content. Maria Guadalupe Sheppard APRN, CNM Marge Kenney M.D. - 02/21/2022 9:16 AM CDT Post Anesthesia Assessment Note Patient: Laurel Mcdonald General Info Post-procedure day: 1 Follow-up type: OB Time spent in patient care: 15 minutes with over half of the total time in counseling and/or coordination of patient care. OB Assessment day: 1 Vital signs: vitals reviewed Ambulation: has not ambulated Urinary retention: No, urinary catheter present Patient received a neuraxial anesthetic: Yes Neuraxial Complications New or progressive sensory deficit since admission: No New or progressing motor deficit since admission: No Headache: No Clinical signs or symptoms of neuraxial infection: none apparent Clinical signs or symptoms of neuraxial hematoma: none apparent Clinical signs or symptoms of CNC MAINTENANCE MECHANIC toxicity (during this admission): none Does patient display any postoperative anesthesia complication warranting further documentation: No Comment regarding postoperative anesthesia complication: Not yet ambulated, however motor exam 5/5 dorsi/plantarflexion, hip flexion, knee flexion/extension. T Karla Moraes M.D. - 02/20/2022 5:30 PM CDT Evaluated patient after two hours of pushing with minimal descent. Patient was known to be in OP position. After epidural bolus, manual rotation was attempted. Pt asked for trial of rotation to be discontinued due to discomfort. Discussed options with patient including redo of epidural with continued rotation attempt. Patient opted for delivery. R/B/A of delivery reviewed and informed consent obtained. Beta called and patient taken to the OR. Karla Moraes MD T Kyra Jarquin M.D. - 02/20/2022 4:38 PM CDT Patient has now been pushing for 2 hours and remains at 0 station. Per ultrasound, fetus remains direct OP with increased caput compared to last exam. Discussed with the patient risks/benefits of manual rotation. She is agreeable to proceed. Two attempts at manual rotation counter-clockwise were performed by myself with Dr. Moraes present at bedside. The fetus was able to rotate to ROT but not past this. The plan was to proceed with an additional attempt in the clockwise direction but patient continued to have significant pain in her left side and back. The pain in her left side has not been controlled throughout her whole labor process despite an epidural and several boluses. The patient is not able to tolerate another attempt of manual rotation at this point. We did discuss with her that there does not seem to be any significant descent of the fetus since she started pushing 2 hours ago. Discussed additional options including another attempt of manual rotation after epidural bolus or replac ement, continued maternal pushing efforts, or proceeding with . Station is not low enough toallow an operative delivery. Due to significant pain and maternal exhaustion, patient wishes to proceed with primary delivery. She has been consented and has no questions. ??Kyra Jarquin M.D. Nataliia Longoria M.D. - 02/20/2022 3:23 PM CDT In to assess for routine exam. Cervix now Dilation: 10 , Effacement (%): 100 , Station: 0 Contraction Frequency (minutes): 1.5-2 FHR Category: Category II ASSESSMENT: - IUP at 39w1d PLAN: - In to assess patient at the 1 hr of pushing rosanna. Patient effected maternal pushing efforts at 1419. Patient has not made any descent. Station is at 0 and on TAUS fetus is in the direct OP position. EFW based on Leopolds was 3700 gms. There is adequate space in the maternal pelvis. We will plan for anesthesia to readdress the epidural for adequate analgesia. If this improves patient can continue to push for an additional 30 minutes. Would recommend a manual rotation of the head. Patient is not a candidate for an operative vaginal delivery at this point in time. Nataliia Longoria M.D. Vera Mcwilliams M.D. - 02/20/2022 2:10 PM CDT In to assess for routine exam. Cervix now Dilation: 10 Effacement (%): 100 Station: 0 Contraction Frequency (minutes): 1.5-2 Heart Tracing: Baseline Rate (BR): 110 bpm (mixed pattern) Variability: Moderate Acceleration Pattern: 15x15 Deceleration Pattern: Variable; Intermittent FHR Category: Category II Membrane Status: AROM Pitocin: Pitocin at 18 mu/min ASSESSMENT: - IUP at 39w1d - Induction of labor for COVID in PLAN: Labor Course Time of cervical ripening intervention: acosta moran (removed at 12hrs at 230am) Time Pitocin started: 2031 Time of IUPC/FSE placement: IUPC placed to help with Pitocin titration Time when deemed in active labor: 12:05 Patient is now complete. Will begin 2nd stage. Vera Mcwilliams M.D. Nataliia Longoria M.D. - 02/20/2022 10:31 AM CDT In to assess for routine exam. Cervix now Dilation: 5 , Effacement (%): 70 , Station: 0 Contraction Frequency (minutes): 1-2 FHR Category: Category I Membrane Status: AROM Pitocin: Pitocin at 18 mu/min ASSESSMENT: - IUP at 39w1d - Induction of labor for COVID 19 and Crohn's colitis PLAN: - Recheck cervix in 2-4 hours or when clinically indicated - Will plan to continue to uptitrate the pitocin - Effect maternal position changes. Patient not deemed in active labor Nataliia Longoria M.D. Karla Moraes M.D. - 02/20/2022 9:25 AM CDT SUBJECTIVE: Patient seen on team rounds. Patient is a 27 y.o. at 39w1d undergoing IOL secondary to Covid-19 in . ANC additionally c/b Chron's Disease, asthma and hyperthyroidism. O+/NR/RI/GBS-/110 OBJECTIVE: Vitals: 02/20/22 0914 BP: Pulse: Resp: Temp: 36.6 ??C SpO2: Heart Tracing: Baseline Rate (BR): 115 bpm Variability: Moderate Acceleration Pattern: 15x15 Deceleration Pattern: None FHR Category: Category I Contraction Frequency (minutes): 1-2 Dilation: 5 Effacement (%): 70 Station: -1 Membrane Status: AROM Pitocin: Pitocin at 14 mu/min ASSESSMENT/PLAN: #1 Asthma Mild Intermittent (HCC) #2 Colitis Crohn's (HCC) #3 Thyroiditis Amador's #4 Personal History Of Infectious And Parasitic Disease (COVID-19) #5 39 Weeks Gestation FHR tracing is category 1 and reassuring Continue oxytocin Karla Moraes M.D. Vera Mcwilliams M.D. - 02/20/2022 8:04 AM CDT In to assess for routine exam. Cervix now Dilation: 5 Effacement (%): 70 Station: -1 Contraction Frequency (minutes): 1.5-2 Heart Tracing: Baseline Rate (BR): 120 bpm Variability: Moderate Acceleration Pattern: 15x15 Deceleration Pattern: None FHR Category: Category I Membrane Status: AROM Pitocin: Pitocin at 14 mu/min MVUs are 190-200 ASSESSMENT: - IUP at 39w1d - Induction of labor for COVID in PLAN: Labor Course Time of cervical ripening intervention: acosta moran (removed at 12hrs at 230am) Time Pitocin started: 2031 Time of IUPC/FSE placement: IUPC placed to help with Pitocin titration Time when deemed in active labor: NA Continue with current dose of pitocin. Cervix is present mostly on right side, so will try differentposition changes to help with dilation. Recheck in 2 hours. Vera Mcwilliams M.D. Yousuf Huerta M.D., M.S. - 02/20/2022 5:16 AM CDT SUBJECTIVE: Laurel Mcdonald is a 27 y.o. at 39w1d. In for routine examination after epidural placement. OBJECTIVE: BP 115/72 Pulse 84 Temp 36.8 ??C (Oral) Resp 20 Ht 165.1 cm Wt 80 kg LMP 05/22/2021 (Exact Date) SpO2 98% Yes BMI 29.35 kg/m?? General: Alert, cooperative, no distress Heart Tracing: Baseline Rate (BR): 120 bpm Variability: Moderate Acceleration Pattern: 15x15 Deceleration Pattern: None FHR Category: Category I Contraction Frequency (minutes): 1-4 Dilation: 4 Effacement (%): 50 Station: -2 Membrane Status: Intact AROM 5:10am, clear Pitocin: Pitocin at 12 mu/min ASSESSMENT: #1 39 Weeks Gestation #2 Asthma Mild Intermittent (HCC) #3 Colitis Crohn's (HCC) #4 Thyroiditis Amador's #5 Personal History Of Infectious And Parasitic Disease (COVID-19) PLAN: Labor Course Time of cervical ripening intervention: cytotecacosta (removed at 12hrs at 230am) Time Pitocin started: 2031 Time of IUPC/FSE placement: IUPC placed to help with Pitocin titration Time when deemed in active labor: NA Patient has not made any cervical change and desires artificial rupture membranes at this time. Given we have not been able to up titrate the Pitocin at this time with Q 2-3 minute contractions, plan for IUPC placement to help with Pitocin management. Yousuf Lewis M.D., M.S. Associated attestation - Rocio Medley M.D. - 02/20/2022 5:23 AM CDT Chemical Research Worker Teaching Physician Statement: I have discussed the care of Laurel Mcdonald, including pertinent history and exam findings with the fellow/resident. I have reviewed their note in the electronic medical record. The mckinnon elements of the encounter have been performed/reviewed by me. I agree with the assessment, plan, and orders as documented by the fellow/resident. The level of care submitted represents to the best of my ability the care documented in the medical record today. GC Modifier: This service has been performed in part by a fellow/resident under the direction of a teaching physician. EFW 3864 g per my exam. Patient was agreeable to plan of care and verbalized understanding. All of her questions were answered. Rocio Medley M.D. Yousuf Lewis M.D., M.S. - 02/20/2022 2:49 AM CDT SUBJECTIVE: Laurel Mcdonald is a 27 y.o. at 39w1d. In for routine examination. Cook catheter has been in place for 12 hours. OBJECTIVE: BP 117/67 Pulse 84 Temp 36.8 ??C (Oral) Resp 20 Ht 165.1 cm Wt 80 kg LMP 05/22/2021 (Exact Date) SpO2 99% Yes BMI 29.35 kg/m?? General: Alert, cooperative, no distress Heart Tracing: Baseline Rate (BR): 115 bpm Variability: Moderate Acceleration Pattern: 15x15 Deceleration Pattern: None FHR Category: Category I Contraction Frequency (minutes): 2-3 Dilation: 4 Effacement (%): 50 Station: -2 Membrane Status: Intact Amniotic fluid color: NA - intact membranes Pitocin: Pitocin at 12 mu/min ASSESSMENT: #1 39 Weeks Gestation #2 Asthma Mild Intermittent (HCC) #3 Colitis Crohn's (HCC) #4 Thyroiditis Amador's #5 Personal History Of Infectious And Parasitic Disease (COVID-19) PLAN: Labor Course Time of cervical ripening intervention: cytotecacosta (removed at 12hrs at 230am) Time Pitocin started: 2031 Time of SROM/AROM: NA Time of IUPC/FSE placement: NA Time when deemed in active labor: NA Patient is on 12 milliunits per minute of Pitocin and karma every 1-2 minutes, discussed consideration for AROM. Patient would like to get her epidural and when she is comfortable we will plan for rupture of membranes. Yousuf Lewis M.D., M.S. Franki Davison M.D., Ph.D. - 02/19/2022 2:35 PM CDT In to assess for routine exam. She appears comfortable with some pressure in the lower abdomen. Cervix now Dilation: 1 , Effacement (%): 20 , Station: -3 Contraction Frequency (minutes): 1-3 Pitocin: NA - no pitocin ASSESSMENT: #1 IUP at 39w0 #2 Asthma #3 Crohn's Colitis #4 Hx of breast fibroadenoma #5 Hypothyroidism, not on replacement #6 Abnormal Pap Smears IOL for history of COVID in - Cytotec placed 0939 - Cook catheter placed at 1430 with 80/80 PLAN: - Continue with current management plan - Recheck cervix in 6 hours or when clinically indicated after cook is expulsed [place] [address] Dara M.D., Ph.D. Theodore Moore M.D. - 02/19/2022 9:40 AM CDT OB Staff: 27 y.o. 39w0d admitted for induction of labor at term due to complicated by history of COVID-19. FHT: Baseline 135, Moderate variability, Accels present, No decels. Reactive NST. Perley: No significant uterine activity. Assessment & Plan: #1 Induction of Labor at Term - Patient is admitted for scheduled induction of labor at term due to a history of COVID-19 infection in . Cervix noted to be unfavorable and cervical ripening has been started with Cytotec. Estimated weight 3800 g by my palpation. GBS negative on 01/30/2022. #2 History of COVID-19 Infection in - The patient experienced a COVID- 19 infection this but is now asymptomatic and the plan is for routine obstetrical management. Theodore Moore M.D. documented in this encounter H&P Notes Nataliia Longoria M.D. - 02/19/2022 9:58 AM CDT SUBJECTIVE REASON FOR ADMISSION Laurel Mcdonald is a 27 y.o. with an Estimated Date of Delivery: 02/26/22. Gestational age is 39w0d determined by LMP consistent with 9 week ultrasound. She is presenting for induction of labor for: COVID diagnosed in . This was diagnosed on 11/07. Patient currently asymptomatic ANC is additionally complicated by Crohn's colitis on ASA, mercaptopurine, ustekinumab and asthma. She is followed by GI last colonoscopy 04/2020. No history of fistulas or abdominal surgeries. She is O positive, GBS negative, BMI of 29.35. Last Growth US on 01/18 was 3071 gms at 79%. HISTORY OF PRESENT CONDITION OB History Para Term AB Living 1 0 0 0 0 0 SAB IAB Ectopic Molar Multiple Live Births 0 0 0 0 0 0 # Outcome Date GA Lbr William/2nd Weight Sex Delivery Anes PTL Lv 1 Current I have reviewed and updated the following: allergies, current medications, prior to admission medications, family history, medical history, social history, surgical history and problem list REVIEW OF SYSTEMS A comprehensive review of systems was negative. OBJECTIVE CERVICAL EXAM Dilation: 0-Closed Station: -3 Cervical Position: Middle Presentation: Cephalic OB Examiner: Von DUMONT VITAL SIGNS Temperature: [36.6 ??C] 36.6 ??C Heart Rate: [111] 111 Resp Rate: [22] 22 Blood Pressure: (114)/(68) 114/68 SpO2: [99 %] 99 % Height: [165.1 cm] 165.1 cm Weight: [80 kg] 80 kg BSA (Calculated - sq m): [1.91 sq meters] 1.91 sq meters BMI (Calculated): [29.3 kg/m??] 29.3 kg/m?? PHYSICAL EXAM Constitutional: no complaints heart tones: Category I Contractions: irregular Membranes: intact Cervix: Evaluated by digital exam., Dilation: Closed, Effacement: N/A %, Cervical consistency: soft and Cervix position: anterior station: -3 presentation: Cephalic determined by Ultrasound positon: Unknown EFW by Mervin's 3700 gms DIAGNOSTICS I have reviewed the OB ultrasound(s) Blood Type: O Pos Antibody Screen: Lab Results Component Value Date ABSCREEN Negative 08/01/2021 Prophylactic RhoGAM: not applicable Lab Results Component Value Date HGB 12.3 11/29/2021 HCT 36.0 11/29/2021 PLT 265 11/29/2021 [id number] 110 11/29/2021 HEPBSAG Nonreactive 10/10/2018 HEPBSAGPREN Negative 08/01/2021 [id number] Non-Reactive 10/10/2018 [id number] Negative 08/01/2021 RUBELLAIGG Positive 08/01/2021 GBS No growth of Streptococcus agalactiae 01/30/2022 ASSESSMENT / PLAN #1 IUP at 39w0 #2 Asthma #3 Crohn's Colitis #4 Hx of breast fibroadenoma #5 Hypothyroidism, not on replacement #6 Abnormal Pap Smears - Admit to Labor and Delivery for induction of labor per cervical exam with routine intrapartum care; Cytotec placed at 0939. Will consider cook catheter placement at next exam - Consult Anesthesia PPH High Risk Factors: None PPH MEDIUM RISK FACTORS: Induction for labor with Pitocin or cervical ripening PPH LOW RISK FACTORS: No prior uterine incision, Barrett , 4 or less vaginal deliveries, No known bleeding disorder and No history of PPH PPH Risk H&P RST: The patient is Medium Risk based on risk assessment given the presence of only one medium risk factor and absence of high risk factors. Plan - order T/S Patient seen and discussed with Dr. Vazquez and Dr. Teresa Longoria M.D. Associated attestation - Soledad Vazquez M.D., M.S. - 02/19/2022 10:21 AM CDT Chemical Research Worker Teaching Physician Statement: I have discussed the care of Laurel Mcdonald, including pertinent history and exam findings with the fellow/resident. I have reviewed their note in the electronic medical record. The mckinnon elements of the encounter have been performed/reviewed by me. I agree with the assessment, plan, and orders as documented by the fellow/resident. The level of care submitted represents to the best of my ability the care documented in the medical record today. GC Modifier: This service has been performed in part by a fellow/resident under the direction of a teaching physician. Soledad Vazquez M.D., M.S. documented in this encounter Nursing Notes Rhina Jones, R.N. - 02/23/2022 3:29 PM CDT Shift Goals: Clinical Goals for the Shift: /pumping, pain control, prepare for discharge Identify possible barriers to meeting goals/advancing plan of care: None End of Shift Summary: Patient progressing as expected. Pain well controlled on as needed PO tylenol and oxycodone in addition to ice packs. Supporting throughout shift through pumping when baby is supplemented. Continuing to encourage patient to rest and broderick with baby. Patient asking pat ropriate questions and receptive to teaching. Intentional rounding performed during shift. Dischargeinstructions completed, AVS given, discharge videos completed Adela Cochran R.N. - 02/23/2022 6:06 AM CDT Shift Goals: Clinical Goals for the Shift: Patient will have stable vitals, pain control, feed baby q2-3 hours, and breast pump. Identify possible barriers to meeting goals/advancing plan of care: NA End of Shift Summary: Patient progressing as expected. Pain well controlled with medications per MARand ice packs. Supporting breast pumping through the night. Continuing to encourage patient to rest and broderick with baby. Patient asking appropriate questions and receptive to teaching. Intentional rounding performed during shift. Bedside handoff done with next RN and goals reviewed. Electronically signed by: Jessica Cochran R.N. 02/23/22 6:06 AM CDT Problem: PAIN - ADULT Goal: PT VERBALIZES/DEMONSTRATES ADEQUATE COMFORT LEVEL OR BASELINE Outcome: Progressing Problem: KNOWLEDGE DEFICIT Goal: Patient/family/caregiver demonstrates understanding of disease process, treatment plan, medications, and discharge instructions Outcome: Progressing Problem: INFECTION - ADULT Goal: Absence of infection during hospitalization Outcome: Progressing Problem: SKIN/TISSUE INTEGRITY Goal: Skin/Tissue integrity maintained or improved Outcome: Progressing Goal: Oral and Nasal mucous membranes remain intact Outcome: Progressing Problem: SAFETY ADULT Goal: Maintain a safe environment Outcome: Progressing Problem: DISCHARGE PLANNING Goal: Patient discharge needs identified Outcome: Progressing Problem: SAFETY ADULT - RISK FOR FALL AND OR FALL INJURY Goal: Patient remains free from fall/fall injury Outcome: Progressing Problem: POTENTIAL OR ACTUAL PRESSURE INJURY-ADULT Goal: Manage sensory Perception deficits to maintain and/or improve skin integrity Outcome: Progressing Goal: Maintain optimal skin moisture to ensure or improve skin integrity Outcome: Progressing Goal: Achieve optimal activity and/or mobility to maintain or improve skin integrity Outcome: Progressing Goal: Nutrient intake appropriate for improving, restoring or maintaining skin integrity Outcome: Progressing Goal: Minimize friction and/or shear to maintain or improve skin integrity Outcome: Progressing Problem: Compromised Skin Integrity Goal: Skin/Tissue integrity maintained or improved Outcome: Progressing Goal: Oral and Nasal mucous membranes remain intact Outcome: Progressing Goal: Incisions, wounds, or drain sites healing without S/S of infection Outcome: Progressing Problem: Incontinence and/or Moisture Goal: Skin integrity is maintained or improved Outcome: Progressing Problem: ALTERATION IN THE BREAST Goal: Optimize infant feeding at the breast Outcome: Progressing Problem: INADEQUATE LATCH, SUCK OR SWALLOW Goal: Demonstrate ability to effectively breastfeed and/or establish milk supply Outcome: Progressing Problem: Goal: Optimize recovery Outcome: Progressing Goal: Facilitate maternal - bonding Outcome: Progressing Irina Palafox R.N. - 02/22/2022 6:33 AM CDT Shift Goals: Clinical Goals for the Shift: VSS, BF q2-3 hrs, pain control, rest, ambulate, void checks Identify possible barriers to meeting goals/advancing plan of care: End of Shift Summary: Laurel is progressing as expected. Pain well controlled. Supporting throughout shift. Baby has improved with over night. Staff assistance is still occasionally needed due to baby's fussiness and sleepiness at the breast, however he is able to sustain a feed. Void checks complete. Pain well controlled. She is ambulating well independently. Continuing to encourage patient to rest and broderick with baby. Patient asking appropriate questions and receptive to teaching. Intentional rounding performed during shift. Bedside handoff done with next RN and goals reviewed. T Rhina Rogel R.N. - 02/21/2022 6:41 PM CDT Shift Goals: Clinical Goals for the Shift: VSS,pain control, BF/pumping support, walk, UCO, broderick with baby Identify possible barriers to meeting goals/advancing plan of care: none End of Shift Summary: Patient progressing as expected with VSS. Pain well controlled. Supporting and pumping throughout shift. Patient ambulated several times in the hallway and within the room. Continuing to encourage patient to rest and broderick with baby. Patient asking appropriate questio ns and receptive to teaching. Intentional rounding performed during shift. Bedside handoff done withnext RN and goals reviewed. Problem: PAIN - ADULT Goal: PT VERBALIZES/DEMONSTRATES ADEQUATE COMFORT LEVEL OR BASELINE Outcome: Progressing Problem: KNOWLEDGE DEFICIT Goal: Patient/family/caregiver demonstrates understanding of disease process, treatment plan, medications, and discharge instructions Outcome: Progressing Problem: INFECTION - ADULT Goal: Absence of infection during hospitalization Outcome: Progressing Problem: SKIN/TISSUE INTEGRITY Goal: Skin/Tissue integrity maintained or improved Outcome: Progressing Goal: Oral and Nasal mucous membranes remain intact Outcome: Progressing Problem: SAFETY ADULT Goal: Maintain a safe environment Outcome: Progressing Problem: DISCHARGE PLANNING Goal: Patient discharge needs identified Outcome: Progressing Problem: SAFETY ADULT - RISK FOR FALL AND OR FALL INJURY Goal: Patient remains free from fall/fall injury Outcome: Progressing Problem: POTENTIAL OR ACTUAL PRESSURE INJURY-ADULT Goal: Manage sensory Perception deficits to maintain and/or improve skin integrity Outcome: Progressing Goal: Maintain optimal skin moisture to ensure or improve skin integrity Outcome: Progressing Goal: Achieve optimal activity and/or mobility to maintain or improve skin integrity Outcome: Progressing Goal: Nutrient intake appropriate for improving, restoring or maintaining skin integrity Outcome: Progressing Goal: Minimize friction and/or shear to maintain or improve skin integrity Outcome: Progressing Problem: Compromised Skin Integrity Goal: Skin/Tissue integrity maintained or improved Outcome: Progressing Goal: Oral and Nasal mucous membranes remain intact Outcome: Progressing Goal: Incisions, wounds, or drain sites healing without S/S of infection Outcome: Progressing Problem: Incontinence and/or Moisture Goal: Skin integrity is maintained or improved Outcome: Progressing Problem: ALTERATION IN THE BREAST Goal: Optimize feeding at the breast Outcome: Progressing Problem: INADEQUATE LATCH, SUCK OR SWALLOW Goal: Demonstrate ability to effectively breastfeed and/or establish milk supply Outcome: Progressing Problem: Goal: Optimize recovery Outcome: Progressing Goal: Facilitate maternal - bonding Outcome: Progressing Tamera Benítez R.N. - 02/20/2022 8:32 PM CDT Problem: - VAGINAL/ SECTION Goal: Optimize and maternal status during the process Outcome: Completed Shift Goals: Clinical Goals for the Shift: , healthy mom and baby Identify possible barriers to meeting goals/advancing plan of care: none End of Shift Summary: RN reviewed goals for the shift with patient. Handoff given to oncoming RN. Mee Sung R.N. - 02/20/2022 8:35 AM CDT Shift Goals: Clinical Goals for the Shift: Healthy mom, healthy baby, working towards Identify possible barriers to meeting goals/advancing plan of care: none End of Shift Summary: documented in this encounter Miscellaneous Notes Note - Gayla Juares R.N., I.BJuliaCJuliaLJuliaC. - 02/23/2022 2:29 PM CDT This note was copied from a baby's chart. SUBJECTIVE Boy Laurel Mcdonald, at 3 days old of age, was seen for a Consultation. Consultation Reason for Consult: Difficult latch Laurel opted to do some pumping abd bottle feeding along with giving HDM in a bottle over night. She does still plan to put baby to breast. Pump set up and milk storage guidelines reviewed. I spoke with mom about assessing for adequate feedings by offering the breast with baby's cues or waking as neededto feed 10 or more times in 24 hours. She can listen for swallows, and monitor wet and dirty diapersto assess for adequate intake. I encouraged her to track her feedings and wet and dirty diapers until her milk volumes are established and baby is gaining weight. We reviewed outpatient resources and Iencouraged her to call or come in with any questions or concerns. Order for a follow up visit placed. OBJECTIVE Delivery Details: Risk Factors: Asthma Other Obstetric Procedures-This : None Labor Complications: Delivery Type: , Low Transverse Weight: 3910 g 1 Minute 5 Minute 10 Minute Totals: 8 9 Maternal Prior to Admissions Medications Current Outpatient Medications on File Prior to Encounter: ??? albuterol inhaler, Inhale 1-2 puffs every 4 (four) hours as needed for wheezing or shortness of breath. ??? cholecalciferol, vitamin D3, (cholecalciferol) 25 mcg (1,000 Unit) tablet, Take 25 mcg by mouth daily. ??? cyanocobalamin (vitamin B-12) 1,000 mcg tablet, Take 1 tablet (1,000 mcg total) by mouth daily. ??? mercaptopurine (PURINETHOL) 50 mg tablet, Take 1 tablet (50 mg total) by mouth daily. on an empty stomach (Patient taking differently: Take 50 mg by mouth at bedtime. on an empty stomach) ??? ustekinumab (Stelara) 90 mg/mL injection, Inject 90 mg subcutaneously every 8 weeks. ??? [DISCONTINUED] enoxaparin (LOVENOX) 80 mg/0.8 mL injection, Inject 0.8 mL (80 mg total) under the skin 2 (two) times a day for 10 days. ??? [DISCONTINUED] [id number] 27 mg iron- 1 mg tablet, Take 3 tablets by mouth daily. Maternal Breast Assessment Breast Size: Average Breast Characteristics: Round, Symmetrical Nipple Type-Right: Everted Nipple Assessment-Right: Intact Right Breast: Soft (some hard lumps in the 9 o'clock position, she has follow up) Nipple Type-Left: Everted Nipple Assessment-Left: Intact Left Breast: Soft Milk Expressed: Yes Assessment Has mother breastfed before?: No. . Tools: Pump Exclusive Pump and Bottle Feed: No Significant other: Spouse, living together Infant Assessment Infant State: Active, alert Suck: Rhythmic, Immature suck: 1-8 suckling bursts Oral Anatomy: Normal palate, tongue, jaw, chin Mucus Membranes: Moist Latch Score: Latch: Too sleepy or reluctant, no latch achieved Audible Swallowing: None Type of Nipple: Everted (After stimulation) Comfort (Breast/Nipple): Soft/non-tender Hold (Positioning): Full assist, teach one side, mother does other, staff holds LATCH Score: 5 weight: 3910 g Current weight: Weight: 3610 g Percent of weight change since : -8% Weight change since previous weight: Weight Change (gm) : -85 Pct Wt Change: -7.67 % ASSESSMENT/PLAN Follow Up: follow up plan: consult Gayla Juares R.N., Manju Note - Gayla Juares R.N., Manju - 02/22/2022 12:33 PM CDT This note was copied from a baby's chart. SUBJECTIVE Boy Laurel Mcdonald, at 2 days old of age, was seen for a Consultation. Consultation Reason for Consult: Difficult latch Laurel is able to postioning independently. We practice a deeper lact. Wide gape with some nutritive draw on the right side this morning. She will pump after sleepy or skipped feedings at breast. I reviewed supply and demand and how to tell if baby is getting enough as well as resources. OBJECTIVE Delivery Details: Risk Factors: Asthma Other Obstetric Procedures-This : None Labor Complications: Delivery Type: , Low Transverse [place] Weight: 3910 g 1 Minute 5 Minute 10 Minute Totals: 8 9 Maternal Prior to Admissions Medications Current Outpatient Medications on File Prior to Encounter: ??? albuterol inhaler, Inhale 1-2 puffs every 4 (four) hours as needed for wheezing or shortness of breath. ??? cholecalciferol, vitamin D3, (cholecalciferol) 25 mcg (1,000 Unit) tablet, Take 25 mcg by mouth daily. ??? cyanocobalamin (vitamin B-12) 1,000 mcg tablet, Take 1 tablet (1,000 mcg total) by mouth daily. ??? mercaptopurine (PURINETHOL) 50 mg tablet, Take 1 tablet (50 mg total) by mouth daily. on an empty stomach (Patient taking differently: Take 50 mg by mouth at bedtime. on an empty stomach) ??? wkvovqt-[id number]-[id number]-FA 27 mg iron- 1 mg tablet, Take 3 tablets by mouth daily. ??? ustekinumab (Stelara) 90 mg/mL injection, Inject 90 mg subcutaneously every 8 weeks. ??? [DISCONTINUED] enoxaparin (LOVENOX) 80 mg/0.8 mL injection, Inject 0.8 mL (80 mg total) under the skin 2 (two) times a day for 10 days. Maternal Breast Assessment Breast Size: Average Breast Characteristics: Round, Symmetrical Nipple Type-Right: Everted Nipple Assessment-Right: Intact Right Breast: Soft (some hard lumps in the 9 o'clock position, she has follow up) Nipple Type-Left: Everted Nipple Assessment-Left: Intact Left Breast: Soft Milk Expressed: Yes Assessment Has mother breastfed before?: No. . Tools: Pump Exclusive Pump and Bottle Feed: No Significant other: Spouse, living together Assessment State: Drowsy Suck: Rhythmic, Immature suck: 1-8 suckling bursts Oral Anatomy: Normal palate, tongue, jaw, chin Mucus Membranes: Moist Latch Score: Latch: Repeated attempts, hold nipple in mouth, stimulate to suck Audible Swallowing: Spontaneous and intermittent (24 hours old) Type of Nipple: Everted (After stimulation) Comfort (Breast/Nipple): Soft/non-tender Hold (Positioning): Full assist, teach one side, mother does other, staff holds LATCH Score: 8 weight: 3910 g Current weight: Weight: 3695 g Percent of weight change since : -5% Weight change since previous weight: Weight Change (gm) : -25 Pct Wt Change: -5.5 % ASSESSMENT/PLAN Follow Up: follow up plan: on going Gayla Juares R.N., I.B.C.L.C. Note - Joanna Gallego R.N., I.B.C.L.C. - 02/21/2022 12:52 PM CDT This note was copied from a baby's chart. SUBJECTIVE Boy Laurel Mcdonald, at 1 days old of age, was seen for a Consultation. Consultation Reason for Consult: Initial assessment OBJECTIVE Delivery Details: Risk Factors: Asthma Other Obstetric Procedures-This : None Labor Complications: Delivery Type: , Low Transverse Weight: 3910 g 1 Minute 5 Minute 10 Minute Totals: 8 9 Maternal Prior to Admissions Medications Current Outpatient Medications on File Prior to Encounter: ??? albuterol inhaler, Inhale 1-2 puffs every 4 (four) hours as needed for wheezing or shortness of breath. ??? cholecalciferol, vitamin D3, (cholecalciferol) 25 mcg (1,000 Unit) tablet, Take 25 mcg by mouth daily. ??? cyanocobalamin (vitamin B-12) 1,000 mcg tablet, Take 1 tablet (1,000 mcg total) by mouth daily. ??? mercaptopurine (PURINETHOL) 50 mg tablet, Take 1 tablet (50 mg total) by mouth daily. on an empty stomach ??? [id number]-[id number]-tviu-FA 27 mg iron- 1 mg tablet, Take 3 tablets by mouth daily. ??? ustekinumab (Stelara) 90 mg/mL injection, Inject 90 mg subcutaneously every 8 weeks. ??? [DISCONTINUED] enoxaparin (LOVENOX) 80 mg/0.8 mL injection, Inject 0.8 mL (80 mg total) under the skin 2 (two) times a day for 10 days. Maternal Breast Assessment Breast Size: Average Breast Characteristics: Symmetrical Nipple Type-Right: Everted Nipple Assessment-Right: Intact Right Breast: Soft Nipple Type-Left: Everted Nipple Assessment-Left: Intact Left Breast: Soft Milk Expressed: Yes Assessment Has mother breastfed before?: No. . Exclusive Pump and Bottle Feed: No Significant other: Spouse, living together Assessment State: Quiet Infant Suck: Immature suck: 1-8 suckling bursts, Non-nutritive suck Oral Anatomy: Normal palate, tongue, jaw, chin Mucus Membranes: Moist Latch Score: Latch: Repeated attempts, hold nipple in mouth, stimulate to suck Audible Swallowing: A few with stimulation Type of Nipple: Everted (After stimulation) Comfort (Breast/Nipple): Filling, red/small blisters/bruises, mild/moderate discomfort Hold (Positioning): Full assist, teach one side, mother does other, staff holds LATCH Score: 6 weight: 3910 g Current weight: Weight: 3910 g (Filed from Delivery Summary) Percent of weight change since : 0% Weight change since previous weight: Weight Change (gm) : 0 Pct Wt Change: 0 % ASSESSMENT/PLAN I met with Laurel to discuss . She reports that baby is attempting at breast and roots but has not sustained any sucks. We woke baby a couple of times before we got some good roots, then baby was able to latch. Baby had mostly small short sucks with longer pauses but parents agree that thiswas the best feeding baby has done yet. I reassured them that was normal as baby is less than 24 hours old. We talked about normal feeding patterns and behaviors. I encouraged skin to skin and feeding with any cues. She should wake and offer the breast every 2-3 hours if baby is not cueing constistently for feeds yet. I encouraged her to call for assistance with feeding as needed. Follow Up: follow up plan: consult Joanna Gallego R.N., RickBJuliaC.LJuliaC. Hospital Course - Nataliia Longoria M.D. - 02/20/2022 6:44 PM CDT The patient was admitted to the [facility] for induction of labor. Her was complicated by COVID 19 and Crohn's colitis. Her labor course was induced with vaginal cytotec, cook cathtere and augmented with artificial rupture of membranes and IV pitocin, utilizing epidural anesthesia for pain management. Complications of labor included failure to descend. She had a primary delivery, delivering a liveborn male with weight of 3.91 kg . Gestational age: 39w1d. occurred: 02/20/2022 , 5:32 PM Both mother and baby were in stable condition at the conclusion of the procedure. When the patient met appropriate criteria, she was transferred to the floor. The remainder of her postpartumcourse was uncomplicated. She received her care at [facility]. L&D Delivery Note - Karla Moraes M.D. - 02/20/2022 6:12 PM CDT OB Delivery Note 02/20/2022 Laurel Mcdonald 27 y.o. Harry, Hammad Barragan [[phone]] Delivery Providers Delivering clinician: Karla Moraes M.D. Provider Role Alix Oliver R.N. Delivery Nurse Steven Mcdonald R.N. Nursery Nurse Nataliia Longoria M.D. Primary Team Resident Surgeon(s) and Role: * Karla Moraes M.D. - Primary * Nataliia Longoria M.D. - Manager Database A operator assistant i cementing actively participated and was necessary for one or more of the following: opening,exposure and visualization during the case, maintaining hemostasis, wound closure resulting in its safe and expeditious completion. Review the Delivery Report for details. GA: 39w1d GP: GBS: Lab Results Component Value Date GBS No growth of Streptococcus agalactiae 01/30/2022 Risk Factors: Asthma Other Other Risk Factors, if any: Crohns Obstetric Procedures - This : None Labor Complications: Blood Loss: IO Blood Loss 02/20/22 1725 - 02/20/22 1812 Quantitative Blood Loss (mL) Hospital Encounter 600 mL Calculated QBL (mL) (RST- Read Only) Hospital Encounter 685 mL Total 1285 mL Delivery Type: , Low Transverse ROM to Delivery Time: (Delivered) Hours: 12 Minutes: 24 Sex: Male Weight: 3.91 kg 1 Minute 5 Minute 10 Minute Totals: 8 9 Details Pre-Op Diagnosis: 1. Intrauterine at 39w1d 39 Weeks Gestation [Z3A.39] Post-Op Diagnosis: Arrest of Descent Indications: Patient pushed for two hours without descent. Unable to tolerate manual rotation attempt and desired to proceed with delivery. Procedure: SECTION - Uterus Anesthesia: Epidural OR Medications: Intra-op Medications Date/Time Order Dose Route Action Action by 02/20/2022 1711 ceFAZolin injection 2 g (ANCEF) 2 g intravenous Given Nase, K 02/20/2022 1713 azithromycin in NaCl 0.9% IVPB 500 mg (ZITHROMYCIN) 500 mg intravenous Given Nase, K Specimens: ID Type Source Tests Collected by Time A : Placenta Greater than 20 Weeks Uterus SURGICAL PATHOLOGY Karla Moraes M.D. 02/20/2022 1741 Drains: Indwelling Urinary Catheter Double-lumen;Latex 16 Fr. (Active) 02/20/22 0556 Placed by: Placed by External Staff?: Hand Hygiene Performed Prior to Insertion: Yes Sterile technique followed?: Yes Catheter Type: Double-lumen;Latex Tube Size (Fr.): 16 Fr. Catheter Balloon Size: 10 mL Urine Returned: Yes Removal Reason: Securement Method Securing device 02/20/22 0556 Output (mL)- Urine 600 mL 02/20/22 0936 Findings: Normal uterus, tubes, and ovaries. Complications Informed Consent: The risks, benefits, complications, and alternatives were discussed with the patient. The patient understood that the risks of section include, but are not limited to: injury to nearby structures or organs, infection, blood loss and possible need for transfusion, and potential need for more surgery including hysterectomy. The patient stated understanding and desired to proceed. All questionswere answered. The patient was identified as Laurel Mcdonald and the procedure verified as a delivery. A Time Out was held and the above information confirmed. Procedure Details: The patient was taken to the operating room. A pause was taken to ensure the correct patient and procedure. Under spinal anesthesia the abdomen was prepped and draped in sterile fashion. A Pfannenstielskin incision was made. Dissection was carried through the skin, subcutaneous, and fascial layers. The rectus muscles were split in the midline and the peritoneal cavity was entered without difficulty.A bladder flap was developed with sharp and blunt dissection. A low transverse uterine incision was made and extended bilaterally. The was delivered from the OP position. See scores above. A dilute solution of oxytocinwas infused, and the uterus was then massaged to allow it to contract down around the placenta and the placenta was delivered. The placenta was inspected and found to be intact with a three vessel cord. The uterus was cleared of all clots and debris. The uterine incision was inspected. No extensions were noted, and the uterus was closed with a (double) layer closure using #1 Vicryl suture. The uterine incision and bladder flap were noted to be hemostatic. The gutters were cleared of all clots and debris. The fascia was reapproximated with a #1 Vicryl suture. The subcutaneous area was irrigated, noted to be hemostatic, and was closed with 2-0 Vicryl. The skin was closed with 3-0 Monocryl. Pediatric care provider, resus team ,was asked to attend the delivery due to high risk for resuscitation due to delivery. Nuchal cord present at delivery? not present Accurate final count? yes The patient was brought to the recovery room with stable vital signs. The patient is a candidate for TOLAC in the future. Karla Moraes M.D. documented in this encounter Plan of Treatment Scheduled Referrals Name Type Priority Associated Order Schedule Diagnoses Gastroenterology and Outpatient Routine Care Expe cted: Hepatology - General Referral And Lactati ng 05/15/2022 gastroenterology consult Colitis Crohn's (Approximate), (clinic) (HCC) Expires: 05/25/2023 documented as of this encounter Procedures Procedure Name Priority Date/Time Associated Diagnosis Comme nts CBC WITHOUT Routine 02/21/2022 5:51 AM Results f or this DIFFERENTIAL, B CDT procedure ar e in the results section. MBC TISSUE DONOR Routine 02/20/2022 10:00 AM Resu lts for this SCREEN TEST SET CDT procedure ar e in the results section. TYPE AND SCREEN Routine 02/19/2022 8:51 AM Result s for this CDT procedure are i n the results section. documented in this encounter Results S-TSH (Thyroid-Stimulating Hormone - Sensitive) (04/06/2022 2:04 PM CDT) P athologist Signature TSH, Sensitive 0.4 0.3 - 4.2 04/06/2022 DTL mIU/L 3:13 PM CDT Specimen Anatomical Collection Method Collection Time Receive d Time (Source) Location / / Volume Laterality Blood (Blood, 04/06/2022 2:04 PM 04/06/20 22 2:41 Venous) CDT PM CDT Annelise Caicedo APRN, CNM LAB BLOOD ADD-ON Performing Organization Address City/[facility] Phon e Number [facility] - [address] [place], [place] [address] [facility] [place], [place] [id number] [place] [address] (ABNORMAL) CBC without Differential (04/06/2022 2:04 PM CDT) [facility] Syncronex Method Time Signature Hemoglobin 15.1 (H) 11.6 - 04/06/2022 DTL 15.0 g/dL 2:28 PM CDT Hematocrit 46.0 (H) 35.5 - 04/06/2022 DTL 44.9 % 2:28 PM CDT Erythrocytes 4.95 3.92 - 04/06/2022 DTL 5.13 2:28 PM CDT x10(12)/L MCV 92.9 78.2 - 04/06/2022 DTL 97.9 fL 2:28 PM CDT RBC Distrib Width 11.9 (L) 12.2 - 04/06/2022 DTL 16.1 % 2:28 PM CDT Platelet Count 333 157 - 371 04/06/2022 DTL x10(9)/L 2:28 PM CDT Leukocytes 7.3 3.4 - 9.6 04/06/2022 DTL x10(9)/L 2:28 PM CDT Specimen Anatomical Collection Method Collection Time Receive d Time (Source) Location / / Volume Laterality Blood (Blood, 04/06/2022 2:04 PM 04/06/20 22 2:20 Venous) CDT PM CDT Annelise Caicedo APRN, CNM LAB BLOOD ADD-ON Performing Organization Address City/State/[facility] Code Phon e Number [facility] - [address] [place], [place] [address] [facility] [place], [place] [id number] [place] [address] (ABNORMAL) CBC without Differential (02/21/2022 5:51 AM CDT) [facility] Syncronex Method Time Signature Hemoglobin 11.6 11.6 - 02/21/2022 DTL 15.0 g/dL 6:09 AM CDT Hematocrit 33.8 (L) 35.5 - 02/21/2022 DTL 44.9 % 6:09 AM CDT Erythrocytes 3.52 (L) 3.92 - 02/21/2022 DTL 5.13 6:09 AM CDT x10(12)/L MCV 96.0 78.2 - 02/21/2022 DTL 97.9 fL 6:09 AM CDT RBC Distrib Width 12.9 12.2 - 02/21/2022 DTL 16.1 % 6:09 AM CDT Platelet Count 221 157 - 371 02/21/2022 DTL x10(9)/L 6:09 AM CDT Leukocytes 24.4 (H) 3.4 - 9.6 02/21/2022 DTL x10(9)/L 6:09 AM CDT Specimen Anatomical Collection Method Collection Time Receive d Time (Source) Location / / Volume Laterality Blood (Blood, 02/21/2022 5:51 AM 02/22/20 6:02 Venous) CDT AM CDT Nataliia Longoria M.D. LAB BLOOD ADD-ON Performing Organization Address City/State/ZIP Code Phon e Number [facility] - [address] [place] [phone] [facility] [place] [address] Laboratories-[facility] [address] [facility] Tissue Donor Screen Test (02/20/2022 10:00 AM CDT) [facility] Method Time Signature HBsAg Screen Non-reacti 02/23/2022 MBC Donor ve 9:45 AM CDT HBc Total Ab Non-reacti 02/23/2022 MBC Donor ve 9:45 AM CDT HBV [facility]AR[facility] Non-reacti 02/23/2022 MBC Individual ve 9:45 AM CDT Donor HCV [facility] Non-reacti 02/23/2022 MBC Individual ve 9:45 AM CDT Donor HIV-1 [facility] Non-reacti 02/23/2022 MBC Individual ve 9:45 AM CDT Donor HIV-1/-2 Plus O Non-reacti 02/23/2022 MBC Ab Screen Donor ve 9:45 AM CDT HCV Ab Screen Non-reacti 02/23/2022 MBC Donor ve 9:45 AM CDT HTLV-I/-II Ab Non-reacti 02/23/2022 MBC Screen Donor ve 9:45 AM CDT T. cruzi Total Non-reacti 02/23/2022 MBC Ab Donor ve 9:45 AM CDT Syphilis Ab Non-reacti 02/23/2022 MBC Screen Donor ve 9:45 AM CDT Comment: This test is done by the Microhemaggluti nation assay- Treponema pallidum (MHA-TP) method. CMV Total Ab Donor Positive 02/23/2022 9:45 AM CD T MBC West Nile Virus [facility] Donor Non-reactive 02/23/2022 9:45 AM CDT [facility] Comment: Failure to detect WNV RNA does not rule out the possibility of West Nile virus infection . This result should be evaluated in the context of th e individual's risk factors and clinical findings. Specimen Anatomical Collection Method Collection Time Receive d Time (Source) Location / / Volume Laterality Blood (Blood, 02/20/2022 10:00 02/20/2022 Venous) AM CDT 10:[address] [facility] DONOR TESTING AND [facility] - 02/23/2022 9:45 AM CDT Specimen Information: Specimen ID: [id number] Specimen Type: Blood Specimen Collection Start Date: 02/21/20 10:00 AM Specimen Received Date: 02/20/2022 10:11 AM Specimen ID: [id number] Specimen Type: Blood Specimen Collection Start Date: 02/21/20 10:00 AM Specimen Received Date: 02/20/2022 10:11 AM Specimen ID: [id number] Specimen Type: Blood Specimen Collection Start Date: 02/21/20 10:00 AM Specimen Received Date: 02/20/2022 10:11 AM Specimen ID: [id number] Specimen Type: Blood Specimen Collection Start Date: 02/21/20 10:00 AM Specimen Received Date: 02/20/2022 10:11 AM Emerald Nicholas M.D. LAB BLOOD NON ADD-ON Performing Organization Address City/State/ZIP Code Phon e Number [facility]OR [address] [facility] [place] [address] TESTING [place] [address] Donor Testing and [facility] [address] [facility]. Type and Screen (with reflex Antibody ID) (02/19/2022 8:51 AM CDT) [facility] gist Method Time Signature ABORh O Pos Not 02/19/2022 ETRM applicable 10:40 AM CDT Antibody Negative Negative 02/19/2022 ETRM Screen 10:49 AM CDT Type & Screen 02/22/2022 02/19/2022 ETRM Expiration 23:59 10:40 AM CDT Testing Ho DEFAULT 02/19/2022 ETRM Location 8:56 AM CDT Specimen Anatomical Collection Method Collection Time Receive d Time (Source) Location / / Volume Laterality Blood (Blood, 02/19/2022 8:51 AM 02/20/20 8:56 Venous) CDT AM CDT Emerald Nicholas M.D. LAB BLOOD BANK TEST ORDERABL ES Performing Organization Address City/State/ZIP Code Phon e Number [facility] - [facility] [address] [place], [place] [address] [facility] [place] [address] Laboratories-[facility] [address] documented in this encounter Visit Diagnoses Not on filedocumented in this encounter Admitting Diagnoses Diagnosis 39 Weeks Gestation (HCC) documented in this encounter Administered Medications Inactive Administered Medications - up to 3 most recent administrations Medication Order MAR Action Action Date Dose Rate Site acetaminophen tablet 1,000 mg Given 02/23/2022 10:03 AM CDT 1,00 0 mg (TYLENOL) 1,000 mg, oral, Every 6 hours, First dose on Sat02/20/22 at 1900, Post-, Administer acetaminophen at same time as ketorolac or ibuprofen. Given 02/23/2022 3:41 AM CDT 1,000 mg Given 02/22/2022 9:23 PM CDT 1,000 mg docusate sodium capsule 100 mg (COLACE) Given 02/23/2022 10:03 AM CDT 100 mg 100 mg, oral, 2 times daily, First dose on Sat02/21/22 at 0900, Post-, Do NOT crush or chew. Given 02/22/2022 9:23 PM CDT 100 mg Given 02/22/2022 8:29 AM CDT 100 mg fentaNYL injection 50 mcg (SUBLIMAZE) 50 mcg, intravenous, Every 1 hour PRN, s evere pain or score 7-10 of 10, moderate pain or score 4-6 of 10, Starting on Sat02/19/22 at 23 57, For 2 doses hydrocortisone 1 % cream (CORTAID) Given 02/23/2022 2:00 AM CDT topical, 2 times daily PRN, irritation, rash, Starting on Sat02/23/22 at 0108 lidocaine 5 % 1 patch Medication Applied 02/23/2022 1:58 AM 1 patch Left Lower (LIDODERM) CDT Abdomen 1 patch, transdermal, Administer over 12 Hours, Daily, First dose on Sat02/21/22 at 2030, Remove after 12 hours. Medication Applied 02/21/2022 10:37 PM CDT 1 patch Left Lower Abdomen mercaptopurine tablet 50 mg (PURINETHOL) Given 02/22/2022 9:00 PM CDT 50 mg 50 mg, oral, Daily, First dose (after last modification) on Sat02/21/22 at 0015, Administer on an empty stomach (1 hour before or 2 hours after eating). Given 02/21/2022 8:16 PM CDT 50 mg Given 02/21/2022 1:06 AM CDT 50 mg metoclopramide injection 10 mg (REGLAN) Given 02/20/2022 11:36 AM CDT 10 mg 10 mg, intravenous, Every 6 hours PRN, nausea, vomiting, Starting on Sat02/20/22 at 1125 ondansetron ODT disintegrating tablet 4 mg Given 02/23/2022 4:16 AM CDT 4 mg (ZOFRAN-ODT) 4 mg, oral, Every 6 hours PRN, nausea, vomiting, Starting on Sat02/20/22 at 2113, Post-, First line When splitting ODT at bedside, handle with gloves and a pill splitter to prevent moisture contact. Given 02/20/2022 10:15 PM CDT 4 mg oxyCODONE IR tablet 10 mg (ROXICODONE) 10 mg, oral, Every 4 hours PRN, severe p ain or score 7-10 of 10, Starting on Sat02/21/22 at 1713, Post-, Begin 24 hours after ravin raxial long-acting opiate given or if no neuraxial long-acting opi ate used start immediately post-operative. oxyCODONE IR tablet 10 mg (ROXICODONE) Given 02/23/2022 1:58 AM CDT 10 mg 10 mg, oral, Every 4 hours PRN, severe pain or score 7-10 of 10, Starting on Pura 02/22/22 at 1713, To be administered in the first 24 hours after intrathecal dose given. oxyCODONE IR tablet 5 mg (ROXICODONE) Given 02/23/2022 2:44 PM CDT 5 mg 5 mg, oral, Every 4 hours PRN, moderate pain or score 4-6 of 10, Starting on Sat02/21/22 at 1713, Post-, Begin 24 hours after neuraxial long-acting opiate given or if no neuraxial long-acting opiate used start immediately post-operative. Given 02/22/2022 2:51 PM CDT 5 mg Given 02/22/2022 8:28 AM CDT 5 mg oxyCODONE IR tablet 5 mg (ROXICODONE) Given 02/23/2022 10:03 AM CDT 5 mg 5 mg, oral, Every 4 hours PRN, moderate pain or score 4-6 of 10, Starting on Pura 02/22/22 at 1713, To be administered in the first 24 hours after intrathecal dose given. Given 02/22/2022 9:53 PM CDT 5 mg oxytocin 60 Continued from 02/20/2022 6:45 100 george-units/min 100 mL /hr george-Units/mL in OR PM CDT NaCl 500 mL infusion (PITOCIN) 15 Units/hr (250 mL/hr), intravenous, Continuous, Starting on Sat02/20/22 at 2100, Post-, Begin immediately after delivery of fetus (or fetuses). Discontinue oxytocin after 500 ml infused if patient stable. Initiate hemorrhage orders when indicated by provider. 30 Units in 500 mL sennosides tablet 17.2 mg (SENOKOT) Given 02/22/2022 9:23 PM CDT 17.2 mg 17.2 mg, oral, Daily at bedtime, First dose on Sat02/21/22 at 2100, Post- Given 02/21/2022 7:50 PM CDT 17.2 mg simethicone chewable tablet 160 mg (MYLI CON) Given 02/22/2022 2:51 PM CDT 160 mg 160 mg, oral, Every 6 hours PRN, flatulence, for abdominal gas, Starting on Sat02/20/22 at 2113, Post- Given 02/21/2022 10:38 PM CDT 160 mg witch mega pad 1 application (TUCKS) Given 02/21/2022 12:27 PM CDT 1 application 1 application, topical, As needed, irritation, Starting on Sat02/21/22 at 1051, Apply to the affected rectal area by patting up to 6 times daily or after each bowel movement. documented in this encounter Active and Recently Administered Medications Times are shown in CDT. Scheduled Medication Order 02/21/2022 02/22/2022 02/23/2022 acetaminophen tablet 1,000 mg (TYLENOL) 0112 (Given - Provider: Cassandra Modi RJuliaN.)0638 (Given - Provider: Cassandra Modi RJuliaN.)1332 (Given - Provider: Rhina Rogel RJuliaN.)1950 (Given - Provider: Irina Palafox RJuliaN.) 0200 (Given - Provider: Irina Palafox RJuliaN.)0829 (Given - Provider: Dbebie Ron)1451 (Given - Provider: Rhina Jones R.N.)2123 (Given - Provider: Adela Cochran R.N.) 0341 (Given - Provider: Adela duarte R.N.)1003 (Given - Provider: Mateo Mcmlilan)1530 (Due - Provider: Chelly Adbullahi, Pharm.D., R.Ph.) 1,000 mg, oral, Every 6 hours, First dos e on Sat02/20/22 at 1900, Post-, Administer acetaminophen at same time as ketorolac or ibuprofen. docusate sodium capsule 100 mg (COLACE) 0741 (Given - Provider: Saul Smiley)1950 (Given - Provider: Irina Palafox RAbdirashid.) 0829 (Given - Provider: Debbie Ron)212 (Given - Provider: Adela Cochran R.N.) 1003 (Given - Provider: Mateo Mcmillan - Comment: patient sleeping) 100 mg, oral, 2 times daily, First dose on Sat02/21/22 at 0900, Post-, Do NOT crush or chew. ketorolac injection 15 mg (TORADOL) (COMPLETED) 0106 ( Given - Provider: Cassandra Modi R.N.)0638 (Canceled Entry - Provider: Cassandra Modi R.N.)0742 (Given - Provider: Saul Smiley - Comment: PIV went bad, last dose not given) 15 mg, intravenous, Every 6 hours, First dose on Sat02/20/22 at 1900, For 3 doses, Post-, Start no sooner than 4 hours after last ketorolac dose. Administer acetaminophen at same time as ketorolac . Adult IV push rate: Over 15 seconds. P eds IV push rate: Over 1 minute. 60 mg dose only for IM, not recommended for IV. lidocaine 5 % 1 patch (LIDODERM) 223 (Medication Appl ied - Provider: Irina Palafox R.N. - Comment: above incision) 0829 (Medication Removed - Provider: Rhina Jones R.N.) 0158 (Medication Applied - Provider: Jacob Cochran RJuliaNJulia)1444 (Medication Removed - Provider: Rhina Jones R.N.) 1 patch, transdermal, Administer over 12 Hours, Daily, First dose on Sat02/21/22 at 2030, Remove after 12 hours. mercaptopurine tablet 50 mg (PURINETHOL) 010 (Given - Provider: Cassandra Modi R.N.)2016 (Given - Provider: Irina Palafox R.N. - Comment: pt usual administration time) 2100 (Given - Provider: Adela Cochran R.N.) 50 mg, oral, Daily, First dose (after la st modification) on Sat02/21/22 at 0015, Administer on an empty stomach (1 hour before or 2 hours after eating). sennosides tablet 17.2 mg (SENOKOT) 1949 (Given - Prov ider: Irina Palafox R.N.) 2123 (Given - Provider: Adela Cochran R.N.) 17.2 mg, oral, Daily at bedtime, First dose on 02/09 at 2100, Post- Continuous Medication Order 02/21/2022 02/22/2022 02/23/2022 lactated ringers 20 mL/hr, intravenous, Continuous, Start ing on Sat02/20/22 at 2115, Post-, Continue delivery fluids until current bag of uterotonic finished then begin this fluid. oxytocin 60 george-Units/mL in NaCl 500 mL infusion (PITOCIN) 15 Units/hr (250 mL/hr), intravenous, Co ntinuous, Starting on Sat02/20/22 at 2100, Post-, Begin immediately after delivery of fetus (or fetuses). Discontinue oxytocin after 500 ml infused if patie nt stable. Initiate hemorrhag e orders when indicated by provider. 30 Units in 500 mL PRN Medication Order 02/21/2022 02/22/2022 02/23/2022 bisacodyL suppository 10 mg (DULCOLAX) 10 mg, rectal, 2 times daily PRN, consti pation, Starting on Sat02/20/22 at 2113, Post-, Verify rectal route is permitted. Ordered sequence of administration if both magnesium hydroxide and bisacod yl are selected: magnesium hydroxide the n bisacodyl until bowel movement achieved. calcium carbonate chewable tablet 400 mg of calcium (TUMS) 400 mg of calcium, oral, Every 2 hour MO N, indigestion, Starting on Sat02/20/22 at 2113, Post-, One 500 mg tablet contains 200 mg of calcium. 500 mg calcium carbonate contains 200 mg of elemental calcium. fentaNYL injection 50 mcg (SUBLIMAZE) 50 mcg, intravenous, Every 1 hour PRN, s evere pain or score 7-10 of 10, moderate pain or score 4-6 of 10, Starting on Sat02/19/22 at 2357, For 2 doses fentaNYL injection 50 mcg (SUBLIMAZE) 50 mcg, intravenous, Once as needed, sev ere pain or score 7-10 of 10, Starting on Sat02/20/22 at 2113, For 1 dose, Post-, For pain rated greater than 7 more than 1 hour after receiving oxycodone. Notify service if pain rated 4 or greater 30 minutes after fenta nyl. hydrocortisone 1 % cream (CORTAID) 0200 (Given - Provider: Adela Cochran RChris) topical, 2 times daily PRN, irritation, rash, Starting on Sat at 0108 ketorolac injection 15 mg (TORADOL) (COMPLETED) 1332 ( Given - Provider: Rhina Rogel R.N.)1950 (Given - Provider: Irina Palafox R.N.) 0200 (Given - Provider: Irina Palafox R.N.) 15 mg, intravenous, Every 6 hours PRN, m oderate pain or score 4-6 of 10, Starting on Sat02/21/22 at 1046, For 3 doses, Post-, Start no sooner than 4 hours after last ketorolac dose. Administer karie taminophen at same time as ketorolac. Ad ult IV push rate: Over 15 seconds. Peds IV push rate: Over 1 minute. 60 mg dose only for IM, not recommended for IV. magnesium hydroxide suspension 30 mL (MILK OF MAGNESIA) 30 mL, oral, Every 8 hours PRN, constipa tion, Starting on Sat02/20/22 at 2113, Post-, Ordered sequence of administration if both magnesium hydroxide and bisacodyl are selected: magnesium hydroxide then bisacodyl until bowel movement achieved. metoclopramide injection 10 mg (REGLAN) 10 mg, intravenous, Every 6 hours PRN, n ausea, vomiting, Starting on Sat02/20/22 at 1125 naloxone injection 0.2 mg (NARCAN) 0.2 mg, intravenous, As needed, respirat ory depression, Starting on Sat02/20/22 at 2113, Post-, For RASS Score -4 or less, respiratory rate of less than 8 breaths/min. Notify provider/service and rapid response team (if available at institution). ondansetron (PF) injection 4 mg (ZOFRAN) 4 mg, intravenous, Every 6 hours PRN, na usea, vomiting, Starting on Sat02/20/22 at 2113, Post-, If patient unable to take oral ondansetron ODT disintegrating tablet 4 mg (ZOFRAN-ODT) 0416 (Given - Provider: Adela Cochran, R.NJulia) 4 mg, oral, Every 6 hours PRN, nausea, v omiting, Starting on Sat02/20/22 at 2113, Post-, First line When splitting ODT at bedside, handle with gloves and a pill splitter to prevent moisture contact. oxyCODONE IR tablet 10 mg (ROXICODONE)(Linked Group 1) 0828 (See Alternative - Provider: Debbie Ron)145 (See Alternative - Provider: Jefry PerkinsN.)215 (See Alternative - Provider: Melanie Schafer.N.) 0155 (Not Given - Provider: Jefry SchaferN. - Reason: Other - Comment: see other oxy order)1444 (See Alternative - Provider: Jefry PerkinsN.) 10 mg, oral, Every 4 hours PRN, severe p ain or score 7-10 of 10, Starting on Sat02/21/22 at 1713, Post-, Begin 24 hours after neuraxial long-acting opiate given or if no neuraxial long-acting opiate used start immediately post-operative. oxyCODONE IR tablet 10 mg (ROXICODONE)(Linked Group 2) 2152 (See Alternative - Provider: Adela Cochran R.N.) 0158 (Given - Provider: Adela Cochran R.N.)1003 (See Alternative - Provider: Mateo Mcmillan) 10 mg, oral, Every 4 hours PRN, severe p ain or score 7-10 of 10, Starting on Pura 02/22/22 at 1713, To be administered in the first 24 hours after intrathecal dose given. oxyCODONE IR tablet 5 mg (ROXICODONE)(Linked Group 1) 0828 (Given - Provider: Debbie Ron)145 (Given - Provider: Jefry PerkinsN.)215 (Not Given - Provider: Jefry SchaferN. - Reason: Other - Comment: See other oxy order) 0155 (See Alternative - Provider: Jameel Cochran R.N.)1444 (Given - Provider: Rhina Jones R.N.) 5 mg, oral, Every 4 hours PRN, moderate pain or score 4-6 of 10, Starting on 02/21/22 at 1713, Post-, Begin 24 hours after neuraxial long-acting opiate given or if no neuraxial long-acting opiate used start immediately post-operative. oxyCODONE IR tablet 5 mg (ROXICODONE)(Linked Group 2) 3 (Given - Provider: Adela Cochran R.N.) 0158 (See Alternative - Provider: Jameel Cochran R.N.)1003 (Given - Provider: Mateo Raderua) 5 mg, oral, Every 4 hours PRN, moderate pain or score 4-6 of 10, Starting on Pura 02/22/22 at 1713, To be administered in the first 24 hours after intrathecal dose given. promethazine injection 6.25 mg (PHENERGAN) 6.25 mg, intravenous, As needed, nausea, vomiting, Starting on Sat02/20/22 at 2113, Post-, If symptoms continue 30 minutes after ondansetron and patient unable to take oral. Frequency: May repeat promethazine 6.25 mg IV every 10 minutes until nausea/vomiting relieved or until 25 mg given in a 4 hour period. promethazine tablet 12.5 mg (PHENERGAN) 12.5 mg, oral, As needed, nausea, vomiti ng, Starting on Sat02/20/22 at 2113, Post-, If symptoms continue 30 minutes after ondansetron. Frequency: May repeat in 30 minutes once if nausea and vomiti ng unrelieved not to exceed 25 mg given in a 4 hour period. simethicone chewable tablet 160 mg (MYLICON) 2238 (Giv en - Provider: Irina Palafox R.N.) 1451 (Given - Provider: Rhina Jones R.N.) 160 mg, oral, Every 6 hours PRN, flatule nce, for abdominal gas, Starting on Sat02/20/22 at 2113, Post- witch mega pad 1 application (TUCKVarsha) 1227 (Given - Pr ovider: Saul Smiley) 1 application, topical, As needed, irrit ation, Starting on Sat02/21/22 at 1051, Apply to the affected rectal area by patting up to 6 times daily or after each bowel movement. Linked Groups Order Group 1: oxyCODONE IR tablet 5 mg (ROXICODONE)Jump to med 5 mg, oral, Every 4 hours PRN, moderate pain or score 4-6 of 10, Starting on Sat02/21/22 at 1713, Post-
Begin 24 hours after neuraxial long-acting opiate given or if no neuraxial long-acting opiate used start immediately post-operative.
Or oxyCODONE IR tablet 10 mg (ROXICODONE)Jump to med 10 mg, oral, Every 4 hours PRN, severe p ain or score 7-10 of 10, Starting on Sat02/21/22 at 1713, Post-
Begin 24 hours after neuraxial long-acting opiate given or if no neuraxial long-acting opiate used start immediately post-operative.
Group 2: oxyCODONE IR tablet 5 mg (ROXICODONE)Jump to med 5 mg, oral, Every 4 hours PRN, moderate pain or score 4-6 of 10, Starting on Pura 02/22/22 at 1713
To be administered in the first 24 hours after intrathecal dose given.
Or oxyCODONE IR tablet 10 mg (ROXICODONE)Jump to med 10 mg, oral, Every 4 hours PRN, severe p ain or score 7-10 of 10, Starting on Pura 02/22/22 at 1713
To be administered in the first 24 hours after intrathecal dose given.
documented in this encounter Additional Health Concerns Assessment Noted Time PHQ-9 Depression Total Score: 4 11/29/2021 10:43 AM CS T documented as of this encounter Care Teams Hand Cementer Relationship Specialty Start Date End Date Belkys Marshall, KARL, C.N.P., M.S. PCP - General Family Medicine 11/16/[address] [place] [id number] documented as of this encounter
--- OUTSIDE RECORDS SUMMARY | 2022-08-31 12:33 | XMS_ITS | Encounter Summary ---
:1995 Author Organization [facility] Address [address] [place] [address] Care Team Providers Name Role Phone Belkys Marshall APRN C.N.P., M.S. Primary Care Provider [phone] Reason for Visit Auth/Cert Specialty Diagnoses / Procedures Referred By Contact Refer red To Contact Diagnoses 39 Weeks Gestation (HCC) Encounter for delivery without indication (HCC) Procedures IP L & D Referral ID Status Reason Start Date Expiration Date Visits Requ ested Visits Authorized [id number] 1 1 Encounter Details Date Type Department Care Team Description 02/20/2022 Anesthesia Event [facility], Sebastian Perrin M.D., Ph.D. [address] [place] [phone] [facility] [address] [place] [phone] [facility], Third Floor [address] [place], [place] [phone] Anesthesia Record Procedure Summary Procedure Name Responsible Anesthesia Start Anesthesia Stop Time Anesthesiologist Time SECTION Sebastian Perrin M.D., 02/20/22 0352 02/20/22 1835 (Uterus) Ph.D. Events Date Time Event Comment 02/20/2022 0350 0352 An Start Machine/Equipmen t Checked Infection Precautions Foll owed Procedure/Site Verified NPO Sta tus Verified Supine Standard ASA Mon itors Applied 0352 Anesthesia Time Out 0353 Block Start 0356 Epidural Placed 0357 Block End 0808 PCEA Patient Controll ed Epidural Apparatus Bolus Dose:8cc Patient Controlled Epidural Apparatus Lockou t:10mins 1648 Epidural to 1652 Anesthesia Time Out 1655 Block Start 1703 Block End 1710 Anesthesia Time Out 2nd pause; 2 nd attempt for spinal 1711 Block Start 1714 Block End 1722 Turnover to Proceduralist 1730 Uterine Incision 1735 Occurred 1802 Quick Note 1824 Turnover to ANE Staff 1825 an stop data 1835 An End I completed my h andoff to the receiving staff during [facility] we 1. Identified the patient 2. Ident ified the responsible provider 3. Revi ewed the pertinent medical history 4. Discu ssed the surgical course 5. Reviewed intra-o p anesthesia management and issues during an esthesia 6. Set expectations for post-procedure period 7. Allowed opportun ity for questions and acknowledgement of understanding. Name Total lidocaine-EPINEPHrine PF 1.5%-1:200,000 injection 3 mL fentaNYL 2 mcg/mL-bupivacaine 0.1% epidural injection 8 mL bupivacaine PF 0.25% injection 2.5 mL lidocaine PF 1% injection 10 mL phenylephrine 100 mcg/mL injection 700 mcg oxytocin injection 10 Unit/mL 9 Units oxytocin 60 george-units/mL in NaCl 0.9% 500 mL infusio n (PITOCIN) 5.1 Units dexamethasone 4 mg/mL injection 8 mg phenylephrine 20 mg/250 mL infusion 2.46 mg ceFAZolin injection 2 g (ANCEF) 2 g azithromycin in NaCl 0.9% IVPB 500 mg (ZITHROMYCIN) 50 0 mg tranexamic acid 1 g in NaCl 0.9% IVPB 1 g dexmedeTOMIDine 80 mcg/20 mL (4 mcg/mL) in NaCl 0.9% v ial 4 mcg fentaNYL PF 50 mcg/mL Regional 30 mcg morphine PF 1 mg/mL Regional 0.2 mg plasmalyte-A free drip 1,200 mL Agents No agents on file. Blood No blood administrations on file. Lines, Drains, and Airways Type Details Placement Removal Wound 02/20/22; 1801; N; 02/20/22 1801 by Incision; Abdomen; Delgado, Carri K, Lower, Medial; R.N. Peripheral IV Placement Date: 02/19/22 1059 by 02/21/22 1107 b y 02/19/22; Placement Nilam Corrigan R.N. [place] e, Morgan L Time: 1059; Catheter Size: 18 G; Orientation: Anterior, Lower, Left; Location: Forearm; Site Prep: Alcohol; Inserted by: CHANEL Corrigan; Insertion Attempts: 1; Removal Date: 02/21/22; Removal Time: 1107; Removal Reason: No longer in place Epidural Catheter Placement Date: 02/20/22 0352 by 02/21/22 1710 by 02/20/22; Placement Dru Cordova Burtoft, Melissa A, Time: 035 (created MMichael MMichael via procedure documentation); Location: Lumbar; Removal Date: 02/21/22; Removal Time: 171 Indwelling Urinary Placement Date: 02/20/22 0556 by 02/21/22 164 5 by Catheter 02/20/22; Placement Stacia Hilario Lauren G, Time: 05; Type: R.N. Double-lumen, Latex; Size: 16 Fr.; Balloon Size: 10 mL; Urine Returned: Yes; Removal Date: 02/21/22; Removal Time: 1645; Removal Reason: Per protocol documented in this encounter Social History Tobacco [...] or relatives? How often do you attend sabianist or 1 to 4 times per year 11/11 hindu services? Do you belong to any clubs or Yes 11/23/2021 organizations such as sabianist groups, unions, fraternal or athletic groups, or [...] place to sleep or slept in a penitentiary (including now)? Education Answer Date Recorded What is the highest level of school Master's degree (e.g., M A, MS, 11/23/2021 you have completed or the highest Connie, MEd, ONLINE ADVERTISING MANAGER, LORI) degree you have received? Sex Assigned at Date Recorded Female 07/18/2021 2:49 PM CDT documented as of this encounter OR Notes Anesthesia Procedure Notes - Lacy Mcginnis M.D. - 02/23/2022 2:22 PM CDT Associated Order(s): Regional Block Regional Block Date/Time: 02/20/2022 5:22 PM Performed by: Gayla Norris M.D. Authorized by: Lacy Mcginnis M.D. Care team members present 1. Noble Ruiz APRN, JONO, DNAP 3. Ruth Gentile APRN, CRNA, D.N.P. Location: OR PROCEDURE DETAILS: Block Indication: primary anesthetic Block Type - Neuraxial: spinal Approach: midline Level inserted: L3-4 Block technique: landmark technique Injection technique: single injection Needle type: rebecca Gauge: 25G CSF: yes Pain with needle advancement or injection of local anesthetic: no Injected Medications: Injection(s), anesthetic agent(s) and/or steroid; See MAR Comments: Comments: Aspiration before and after injection. Patient immediately described numb arms and heavy chest and feeling of sleepiness. Head of bed raised. Oxygen via anesthesia mask indicated regular respirations with 500cc tidal volumes throughout. Patient remained awake and conversive throughout. UNIVERSAL PROTOCOL All relevant documentation and testing were reviewed and available. All required blood products, implants, devices and or special equipment were made available as applicable. Pre-procedure verificationwas conducted and the correct site was marked if required. A fire risk assessment was done as applicable. The procedural time-out was conducted prior to performing the procedure and confirmed in a procedural pause. PRE-PROCEDURE DETAILS: Appropriate hand hygiene, gown, cap, mask, protective eyewear, sterile gloves, skin preparation, sterile drape, and strict aseptic technique were utilized as applicable for the procedure.: yes Skin prep: chlorhexidine / alcohol SEDATION / ANESTHESIA Anesthesia method: local infiltration POST-PROCEDURE DETAILS: Procedure completed successfully: successful procedure Other complications: none ATTESTATION STATEMENT Anesthesia Procedure Notes - Lacy Mcginnis M.D. - 02/23/2022 2:20 PM CDT Associated Order(s): Regional Block Regional Block Date/Time: 02/20/2022 5:00 PM Performed by: Gayla Norris M.D. Authorized by: Lacy Mcginins M.D. Care team members present 1. Ruth Gentile APRN, CRNA, D.N.P. 3. Noble Ruiz APRN, CRNA, DNAP Location: OR PROCEDURE DETAILS: Block Indication: primary anesthetic Block Type - Neuraxial: spinal Positioning: sitting Approach: midline Level inserted: L3-4 Injection technique: single injection Needle type: rebecca Gauge: 25G CSF: yes Pain with needle advancement or injection of local anesthetic: no Injected Medications: Injection(s), anesthetic agent(s) and/or steroid; See MAR Comments: Comments: No block established as assessed by motor and sensory exam after 10 minutes with continue FHR monitoring. UNIVERSAL PROTOCOL All relevant documentation and testing were reviewed and available. All required blood products, implants, devices and or special equipment were made available as applicable. Pre-procedure verificationwas conducted and the correct site was marked if required. A fire risk assessment was done as applicable. The procedural time-out was conducted prior to performing the procedure and confirmed in a procedural pause. PRE-PROCEDURE DETAILS: Appropriate hand hygiene, gown, cap, mask, protective eyewear, sterile gloves, skin preparation, sterile drape, and strict aseptic technique were utilized as applicable for the procedure.: yes Skin prep: chlorhexidine / alcohol SEDATION / ANESTHESIA Anesthesia method: local infiltration POST-PROCEDURE DETAILS: Procedure completed successfully: successful procedure Other complications: none ATTESTATION STATEMENT Anesthesia Postprocedure Evaluation - Lacy Mcginnis M.D. - 02/20/2022 6:51 PM CDT Patient: Laurel Mcdonald Procedure Summary Date: 02/20/22 Room / Location: [facility] 03 [facility] 03 405 L&D / RST [facility] L&D OR Anesthesia Start: 351 Anesthesia Stop: 1834 Procedure: SECTION (N/A Uterus) Diagnosis: 39 Weeks Gestation (39 Weeks Gestation [Z3A.39]) Surgeons: Karla Moraes M.D. Responsible Provider: Sebastian Perrin M.D., Ph.D. Anesthesia Type: regional ASA Status: 2 Anesthesia Type: regional Last vitals Vitals Value Taken Time BP 109/67 02/20/22 1845 Temp 36.7 ??C 02/20/22 1845 Pulse 106 02/20/22 1850 Resp 15 02/20/22 1850 SpO2 96 % 02/20/22 1850 Vitals shown include unvalidated device data. Please reference Vitals flowsheet for most recent vital signs. Anesthesia Post Evaluation Patient Disposition: general care unit Cardiovascular status: hemodynamics (HR & BP) acceptable Respiratory status: patent airway with spontaneous effort Temperature: normothermic Oxygen requirements: room air Level of consciousness: awake Pain score: pain adequately controlled and/or at baseline Post Op nausea/vomiting: none Hydration status: euvolemic Comments: Patient without questions upon arrival in recovery room. Anesthesia Procedure Notes - Lacy Mcginnis M.D. - 02/20/2022 5:36 PM CDT Associated Order(s): Anesthesia Critical Event Anesthesia Critical Event Date/Time: 02/20/2022 5:36 PM Performed by: Ruth Gentile APRN, CRNA, D.N.PJulia Authorized by: Lacy Mcginnis M.D. Location: Anesthesia Critical Event(s): Other Critical Event Description: High Spinal: Patient began IOL > 36 hours prior. Epidural had been working and in spite of bupivacaine and lidocaine boluses during her 2 hours of pushing we were unable to get less than 10/10 pain. We pulled the epidural and placed a spinal with 1.6cc heavy 0.75% bupivacaine with no change in motor or sensor block. Spinal repeated at same dose. C6 level achieved. Head of bed risen into reverse T ramirez for Csection. Patient awake and conversive throughout. Spontaneous respirations with TV of about 500 and rate at 17. Phenylephrine to maintain BP. Partner present throughout. Jackie [id number] Addendum: I visited with Ms. Mcdonald on Saturday02/21/22 to discuss her experience with a high spinal. Patient described no headache and was sitting nursing her baby. While her labor experience was overwhelming and the high spinal experience was stressful she let me know that she felt safe throughout. I explained that this likely happened because of repeating a block on top of a block and reassuredher that this is unlikely to happen in future delivery experiences. I told her our OB Anesthesia team could meet with her prior to her next and I gave her my contact information if she would liketo speak with me when planning for OB Anesthesia in the future. Jackie Anesthesia Procedure Notes - Dru Cordova M.D. - 02/20/2022 4:26 AM CDT Associated Order(s): Regional Block Regional Block Date/Time: 02/20/2022 3:52 AM Performed by: Dru Cordova M.D. Authorized by: Pompeian, Lilli J, M.D. Location: labor room PROCEDURE DETAILS: Block Indication: OB block Block Type - Neuraxial: lumbar epidural Positioning: sitting Approach: midline Level inserted: L3-4 Block technique: landmark technique Injection technique: catheter Epidural space identification technique: loss of resistance - fluid Loss of resistance depth: 5 Needle type: tuohy Gauge: 17G Length: 10 Catheter taped (cm at skin): 9.5 CSF: no Test dose: yes- negative test dose Pain with needle advancement or injection of local anesthetic: no Injected Medications: Injection(s), anesthetic agent(s) and/or steroid; See MAR Comments: Comments: Risks, benefits, and alternatives were discussed with patient, and patient consented to epidural. No significant discomfort with needle advancement. Epidural catheter threaded without complication. UNIVERSAL PROTOCOL All relevant documentation and testing were reviewed and available. All required blood products, implants, devices and or special equipment were made available as applicable. Pre-procedure verificationwas conducted and the correct site was marked if required. A fire risk assessment was done as applicable. The procedural time-out was conducted prior to performing the procedure and confirmed in a procedural pause. PRE-PROCEDURE DETAILS: Appropriate hand hygiene, gown, cap, mask, protective eyewear, sterile gloves, skin preparation, sterile drape, and strict aseptic technique were utilized as applicable for the procedure.: yes Skin prep: chlorhexidine / alcohol SEDATION / ANESTHESIA Anesthesia method: local infiltration Local infiltrate type: lidocaine POST-PROCEDURE DETAILS: Procedure completed successfully: successful procedure Other complications: none ATTESTATION STATEMENT A resident or fellow participated in the procedure, and the design sales consultant was present for the entire procedure. Anesthesia Preprocedure Evaluation - Lilli Bagi M.D. - 02/20/2022 3:53 AM CDT Preprocedure Anesthesia & H&P Assessment Procedure Summary Anesthesia Start Date/Time: 02/20/22351 Procedure: LABOR ANALGESIA Pertinent components of the patient's history including current problem list, medical history, surgical history, family history, social history, medications and allergies were reviewed. Present illnessand pre-op diagnosis were confirmed. The planned surgery / procedure was verified with the patient /legal guardian. The patient's general health condition remains unchanged RELEVANT COMORBID CONDITIONS RESP (+) Asthma Mild Intermittent (HCC) ENDO (+) Thyroiditis Amador's GI (+) Colitis Crohn's (HCC) OBJECTIVE PHYSICAL EXAMINATION Airway (HEENT) Mallampati: II TM Distance: >3 FB Neck ROM: Full Mouth Opening: >3 cm Upper Lip Bite Test Class: II Cardiovascular Rhythm: Regular Rate: Normal Cardiovascular Assessment: cardiovascular normal Functional Capacity: <4 METS Pulmonary Pulmonary Assessment: Clear General / Constitutional Constitutional Assessment: Normal General State of Health:: healthy appearing Neurological Neurologic Assessment:??alert and alert and oriented x 3 Dental Dental Assessment: dentition intact Abdomen Normal Musculoskeletal Normal Skin Normal ASSESSMENT / PLAN ANESTHESIA PLAN ASA: 2 Anesthesia Plan: regional Patient seen and allergies reviewed, anesthesia plan and risks discussed directly with patient /legal guardian or through an engraver letter. Risks/Benefits/Alternatives of Blood transfusion discussed with patient / legal guardian, including an opportunity to ask questions and/or decline some or all transfusion therapies. The patient / legalguardian consented to the use of all blood products, as deemed medically necessary Approval to Proceed: approved for anesthesia I have reviewed all the pertinent components of patient history and have examined the patient. My current plan for anesthetic management is as follow: Plan: Type: epidural Access and fluids: 1 PIV + LR, consented for blood Monitors: standard ASA Airway plan: mask for oxygen if needed Pain: offer epidural, risk and benefits are discussed Antiemetic: dexamethasone, Zofran documented in this encounter Miscellaneous Notes Addendum Note - Sebastian Martinez - 04/13/2022 3:09 PM CDT Addendum created 04/13/22 1509 by Sebastian Martinez Attached Procedures edited Addendum Note - Sindy Merino APRN, CRNA, DNAP - 03/06/2022 11:48 AM CDT Addendum created 03/06/22 1148 by Sindy Merino APRN, JONO, DNAP Attached Procedures edited Addendum Note - Lacy Mcginnis M.D. - 02/23/2022 2:31 PM CDT Addendum created 02/23/22 1431 by Lacy Mcginnis M.D. Child order released for a procedure order, Clinical Note Signed, Intraprocedure Blocks edited, SmartForm saved documented in this encounter Plan of Treatment Not on filedocumented as of this encounter Procedures Procedure Name Priority Date/Time Associated Comments Diagnosis ANESTHESIA CRITICAL Routine 02/20/2022 5:36 PM Re sults for this EVENT CDT procedure are i n the results section. ANESTHESIA REGIONAL Routine 02/20/2022 5:22 PM Re sults for this BLOCK CDT procedure are i n the results section. ANESTHESIA REGIONAL Routine 02/20/2022 5:00 PM Re sults for this BLOCK CDT procedure are i n the results section. ANESTHESIA REGIONAL Routine 02/20/2022 3:52 AM Re sults for this BLOCK CDT procedure are i n the results section. documented in this encounter Results ANESTHESIA CRITICAL EVENT (02/20/2022 5:36 PM CDT) Narrative Lacy Mcginnis M.D. - 02/20/2022 5 :36 PM CDT Lacy Mcginnis M.D. ? 02/23/2022 ??2:30 PM Anesthesia Critical Event Date/Time: 02/20/2022 5:36 PM Performed by: Ruth Gentile APRN, JONO, D.N.P. Authorized by: Lacy Mcginnis M.D. Location: Anesthesia Critical Event(s): ??Other Critical Event Description: High Spinal: ??Patient began IOL > 36 hours prior. Epidural had been working and in spite of bupivacaine and lidocaine boluses during her 2 hours of pushing we were unable to get less than 10/10 pain. We pulled the epidural and p laced a spinal with 1.6cc heavy 0.75% bupivacaine with no change in oren r or sensor block. ??Spinal repeated at same dose. ??C6 level achiev ed. ??Head of bed risen into reverse T ramirez for Csection. Patient awake and c onversive throughout. ??Spontaneous respirations with TV of about 500 and ra te at 17. ??Phenylephrine to maintain BP. ??Partner present throughou t. ??Jackie [id number] Addendum: I visited with Ms. Mcdonald on Saturday02/21/22 to discuss her experience with a high spinal. ??Patient described no headache and was sitting nursing her baby. ??While her la bor experience was overwhelming and the high spinal experience was stressful she let me know that she felt safe throughout. I explained that this l ikely happened because of repeating a block on top of a block and reassured her that this is unlikely to happen in future delivery ex periences. ??I told her our OB Anesthesia team could meet with her dewayne pulido to her next and I gave her my contact information if she would like to speak with me when planning for OB Anesthesia in the future. ??-K.Nate endt Lacy Mcginnis M.D. ANESTHESIA ORDERABLES Regional Block (02/20/2022 5:22 PM CDT) Narrative Lacy Mcginnis M.D. - 02/20/2022 5 :22 PM CDT Lacy Mcginnis M.D. ? 02/23/2022 ??2:25 PM Regional Block Date/Time: 02/20/2022 5:22 PM Performed by: Gayla Norris M.D. Authorized by: Lacy Mcginnis M.D. Care team members present 1. Noble Ruiz APRN, VIDEOGAME DESIGNER, DNAP 3. Ruth Gentile APRN, JONO, D.N.P. Location: OR PROCEDURE DETAILS: Block Indication: primary anesthetic ?? Block Type - Neuraxial: spinal Approach: midline Level inserted: L3-4 Block technique: landmark technique ?? Injection technique: single injection Needle type: rebecca Gauge: 25G CSF: yes ??Pain with needle advancement or injection of local anesthetic: no ?? Injected Medications: Injection(s), anes thetic agent(s) and/or steroid; See MAR Comments: Comments: Aspiration before and after in jection. ??Patient immediately described numb arms and heavy chest and feeling of sleepiness. ??Head of bed raised. ??Oxygen via anesthesia mask indicated regular respirations with 500cc tidal volumes throughout. ??P atient remained awake and conversive throughout. UNIVERSAL PROTOCOL All relevant documentation and testing w ere reviewed and available. All required blood products, implants, devic es and or special equipment were made available as applicable. Pre-proced ure verification was conducted and the correct site was marked if required. A fire risk assessment was done as applicable. The procedural time-out w as conducted prior to performing the procedure and confirmed in a procedu ral pause. PRE-PROCEDURE DETAILS: ?? Appropriate hand hygiene, gown, cap, mas k, protective eyewear, sterile gloves, skin preparation, sterile drape, and strict aseptic technique were utilized as applicable for the procedure .: yes ?? Skin prep: chlorhexidine / alcohol SEDATION / ANESTHESIA Anesthesia method: local infiltration POST-PROCEDURE DETAILS: Procedure completed successfully: succes sful procedure Other complications: none ATTESTATION STATEMENT Lacy Mcginnis M.D. PROCEDURE/MINOR SURGICAL ORD ERABLES Regional Block (02/20/2022 5:00 PM CDT) Narrative Lacy Mcginnis M.D. - 02/20/2022 5 :00 PM CDT Lacy Mcginnis M.D. ? 02/23/2022 ??2:23 PM Regional Block Date/Time: 02/20/2022 5:00 PM Performed by: Gayla Norris M.D. Authorized by: Lacy Mcginnis M.D. Care team members present 1. Ruth Gentile APRN, JONO, D.N.P. 3. Noble Ruiz APRN, JONO, DNAP Location: OR PROCEDURE DETAILS: Block Indication: primary anesthetic ?? Block Type - Neuraxial: spinal Positioning: sitting ?? Approach: midline Level inserted: L3-4 Injection technique: single injection Needle type: rebecca Gauge: 25G CSF: yes ??Pain with needle advancement or injection of local anesthetic: no ?? Injected Medications: Injection(s), anes thetic agent(s) and/or steroid; See MAR Comments: Comments: No block established as assess ed by motor and sensory exam after 10 minutes with continue FHR monitoring. UNIVERSAL PROTOCOL All relevant documentation and testing w ere reviewed and available. All required blood products, implants, devic es and or special equipment were made available as applicable. Pre-proced ure verification was conducted and the correct site was marked if required. A fire risk assessment was done as applicable. The procedural time-out w as conducted prior to performing the procedure and confirmed in a procedu ral pause. PRE-PROCEDURE DETAILS: ?? Appropriate hand hygiene, gown, cap, mas k, protective eyewear, sterile gloves, skin preparation, sterile drape, and strict aseptic technique were utilized as applicable for the procedure .: yes ?? Skin prep: chlorhexidine / alcohol SEDATION / ANESTHESIA Anesthesia method: local infiltration POST-PROCEDURE DETAILS: Procedure completed successfully: succes sful procedure Other complications: none ATTESTATION STATEMENT Lacy Mcginnis M.D. PROCEDURE/MINOR SURGICAL ORD ERABLES LDA ANE EPIDURAL CATHETER (02/20/2022 3:52 AM CDT) Narrative Lilli Baig M.D. - 02/20/2022 3:52 AM CDT Dru Cordova M.D. ? 02/20/2022 ??4:26 AM Regional Block Date/Time: 02/20/2022 3:52 AM Performed by: Dru Cordova M.D. Authorized by: Lilli Baig M.D . Location: labor room PROCEDURE DETAILS: Block Indication: OB block ?? Block Type - Neuraxial: lumbar epidural Positioning: sitting ?? Approach: midline Level inserted: L3-4 Block technique: landmark technique ?? Injection technique: catheter Epidural space identification technique: loss of resistance - fluid Loss of resistance depth: 5 Needle type: tuohy Gauge: 17G Length: 10 Catheter taped (cm at skin): 9.5 CSF: no ?? Test dose: yes- negative test dose ??Evy n with needle advancement or injection of local anesthetic: no ?? Injected Medications: Injection(s), anes thetic agent(s) and/or steroid; See MAR Comments: Comments: Risks, benefits, and alternati ves were discussed with patient, and patient consented to epidural. ??No significant discomfort with needle advancement. ??Epidural catheter threade d without complication. ?? UNIVERSAL PROTOCOL All relevant documentation and testing w ere reviewed and available. All required blood products, implants, devic es and or special equipment were made available as applicable. Pre-proced ure verification was conducted and the correct site was marked if required. A fire risk assessment was done as applicable. The procedural time-out w as conducted prior to performing the procedure and confirmed in a procedu ral pause. PRE-PROCEDURE DETAILS: ?? Appropriate hand hygiene, gown, cap, mas k, protective eyewear, sterile gloves, skin preparation, sterile drape, and strict aseptic technique were utilized as applicable for the procedure .: yes ?? Skin prep: chlorhexidine / alcohol SEDATION / ANESTHESIA Anesthesia method: local infiltration Local infiltrate type: lidocaine POST-PROCEDURE DETAILS: Procedure completed successfully: succes sful procedure Other complications: none ATTESTATION STATEMENT A resident or fellow participated in the procedure, and the design sales consultant was present for the entire procedure. Lilli Baig M.D. PROCEDURE/MINOR SURGICAL ORD ERABLES documented in this encounter Visit Diagnoses Not on filedocumented in this encounter Administered Medications Inactive Administered Medications - up to 3 most recent administrations Medication Order MAR Action Action Date Dose Rate Site azithromycin in NaCl 0.9% IVPB 500 Given 02/20/2022 5:13 PM CDT 500 mg mg (ZITHROMYCIN) 500 mg, intravenous, at 250 mL/hr, Administer over 60 Minutes, Once, On Sat02/20/22 at 1645, For 1 dose, Intra-Op, Administer within 1 hour prior to surgical incision, Indications: Prophylaxis, surgical bupivacaine PF 0.25 % (2.5 mg/mL) injection Given 02/20/2022 9:31 AM CDT 2.5 mL (MARCAINE) intrathecal, As needed, Starting on Sat02/20/22 at 0931, Anesthesia Intra-op ceFAZolin injection 2 g (ANCEF) Given 02/20/2022 5:11 PM CDT 2 g 2 g, intravenous, Once, On Sat02/20/22 at 1645, For 1 dose, Intra-Op, Administer within 1 hour prior to surgical incision If needed, reconstitute vial per package insert instructions. See IVAG for administration guidelines. , Drug Monitoring Program: Pharmacist to adjust medication dosing based on indication and drug clearance factors., Indications: Prophylaxis, surgical dexAMETHasone injection (DECADRON) Given 02/20/2022 5:33 PM CDT 8 mg intravenous, As needed, Starting on Sat02/20/22 at 1733, Anesthesia Intra-op dexmedeTOMIDine 80 mcg/20 mL (4 mcg/mL) Given 02/20/2022 6:00 PM CDT 4 mcg injection (PRECEDEX) intravenous, As needed, Starting on Sat02/20/22 at 1800, Anesthesia Intra-op electrolyte-A solution (PLASMA-LYTE A) New Bag 02/20/2022 5:44 PM CDT intravenous, Continuous Infusion: Per Instructions PRN, Starting on Sat02/20/22 at 1652, Anesthesia Intra-op New Bag 02/20/2022 4:52 PM CDT fentaNYL injection Regional (SUBLIMAZE) Given 02/20/2022 5:13 PM CDT 15 mcg epidural, As needed, Starting on Sat02/20/22 at 1702, Anesthesia Intra-op Given 02/20/2022 5:02 PM CDT 15 mcg fentaNYL-bupivacaine 2 mcg/mL-0.1% epidural Given 02/20/2022 3:3 5 PM CDT 8 mL (premix) epidural, As needed, Starting on Sat02/20/22 at 1535, Anesthesia Intra-op lidocaine (PF) 10 mg/mL (1 %) injection Given 02/20/2022 4:00 PM CDT 5 mL (XYLOCAINE) epidural, As needed, Starting on Sat02/20/22 at 1530, Anesthesia Intra-op Given 02/20/2022 3:30 PM CDT 5 mL lidocaine-EPINEPHrine (PF) 1.5 %-1:200,000 Given 02/20/2022 3:57 AM CDT 3 mL injection (XYLOCAINE W/EPI) epidural, As needed, Starting on Sat02/20/22 at 0357, Anesthesia Intra-op morphine (PF) injection Regional (DURAMO RPH) Given 02/20/2022 5:13 PM CDT 0.1 mg intrathecal, As needed, Starting on Sat02/20/22 at 1702, Anesthesia Intra-op Given 02/20/2022 5:02 PM CDT 0.1 mg oxytocin 60 george-units/mL in NaCl New Bag 02/20/2022 5:44 PM 6 Units/hr 100 mL/hr 0.9% 500 mL infusion (PITOCIN) CDT intravenous, Continuous Infusion: Per Instructions PRN, Starting on Sat02/20/22 at 1744, Anesthesia Intra-op oxytocin injection (PITOCIN) Given 02/20/2022 5:40 PM CDT 3 Units intravenous, As needed, Starting on Sat02/20/22 at 1734, Anesthesia Intra-op Given 02/20/2022 5:37 PM CDT 3 Units Given 02/20/2022 5:34 PM CDT 3 Units phenylephrine 80 mcg/mL in Rate/Dose 02/20/2022 6:12 0.2 mcg/kg/min 12 mL/hr NaCl 0.9% 250 mL infusion Change PM CDT intravenous, Continuous Infusion: Per Instructions PRN, Starting on Sat02/20/22 at 1715, Anesthesia Intra-op Rate/Dose Change 02/20/2022 6:03 PM CDT 0.4 mcg/kg/min 24 mL/hr Rate/Dose Change 02/20/2022 5:20 PM CDT 0.5 mcg/kg/min 30 mL/hr phenylephrine injection Given 02/20/2022 5:18 PM CDT 200 mcg intravenous, As needed, Starting on Sat02/20/22 at 1717, Anesthesia Intra-op Given 02/20/2022 5:17 PM CDT 100 mcg Given 02/20/2022 5:15 PM CDT 200 mcg tranexamic acid 1 g in NaCl 0.9% IVPB New Bag 02/20/2022 5:40 PM CDT 1 g intravenous, Administer over 20 Minutes, Continuous Infusion: Per Instructions PRN, Starting on Sat02/20/22 at 1740, Anesthesia Intra-op documented in this encounter Additional Health Concerns Assessment Noted Time PHQ-9 Depression Total Score: 4 11/29/2021 10:43 AM CS T documented as of this encounter Care Teams Merchandise Collector Relationship Specialty Start Date End Date Belkys Marshall APRN, C.N.P., M.S. PCP - General Family Medicine 11/16/19 [address] [place] [address] documented as of this encounter
--- OUTSIDE RECORDS SUMMARY | 2022-08-31 12:33 | XMS_ITS | Encounter Summary ---
:1995 Author Organization [facility] Address [address] [place] [id number] Care Team Providers Name Role Phone Belkys Marshall APRN, C.N.P., M.S. Primary Care Provider [phone]- [phone] Encounter Details Date Type Department Care Team Description 02/12/2022 Hospital Encounter Department of Shiela Barraza, High Risk Obstetrics and Laverne BARAJAS, Gynecology in [address] [place] [phone] [phone] Social History Tobacco Use Types Packs/Day Years [...] or relatives? How often do you attend quaker or 1 to 4 times per year 11/11 voodoo services? Do you belong to any clubs or Yes 11/23/2021 organizations such as quaker groups, unions, fraternal or athletic groups, or [...] have completed or the highest Connie, MEd, DRY CLEANER HELPER, LORI) degree you have received? Sex Assigned at Date Recorded Female 07/18/2021 2:49 PM CDT documented as of this encounter Medications at Time of Discharge Medication Sig Dispensed Refills Start Date End Date albuterol inhaler Inhale 1-2 puffs every 1 Inhaler 1 2019 4 (four) hours as needed for wheezing or shortness of breath. cholecalciferol, Take 25 mcg by mouth 0 vitamin D3, 25 mcg daily. (1,000 Unit) tablet mercaptopurine Take 1 tablet (50 mg 90 tablet 3 12/22/2021 (PURINETHOL) 50 mg total) by mouth daily. tablet on an empty stomach ustekinumab (Stelara) Inject 90 mg 180 mL 2 11/01/2021 90 mg/mL subcutaneously every 8 injectionIndications: weeks. Crohn's Disease (HCC) Take 3 tablets by 0 022 wqzverk-Mg-rogr-FA 27 mouth daily. mg iron- 1 mg tablet documented as of this encounter Plan of Treatment Not on filedocumented as of this encounter Procedures Procedure Name Priority Date/Time Associated Comments Diagnosis US OB LIMITED AND RAD - Routine 02/12/2022 3:31 High Risk Result s for this BPP WITHOUT NON (most inpatients PM CDT procedur e are in STRESS and all the results outpatients) section. documented in this encounter Results US OB Limited and BPP Without Non Stress (02/12/2022 3:31 PM CDT) Anatomical Region Laterality Modality Body, Ultrasound OB RST LOS, Ultrasound ARZ LOS N/A Ultrasound Specimen (Source) Anatomical Location Collection Method / Collectio n Time Received Time / Laterality Volume Narrative 02/12/2022 4:15 PM CDT LAUREL CARABALLO Assessment Exam, 02/12/2022 EXAM INFORMATION Patient Name: ??LAUREL CARABALLO : ??1995 Age: ??27 yrs Sex: ??Female Ref Phys: ??SHIELA BARRAZA Exam Date: 02/12/2022 Procedure: US OB LIMITED AND BPP WITHOUT NON STRESS Exam Site: [facility] OB 3 Plurality: 1 LMP: 05/21/2021 GA By LMP: ??38w1d GA Method: LATONYA GA: 38w0d LATONYA: 02/26/2022 OBHx: [G:(1)] ?F Trm:() Pre:() C-Sec:() Ab-I:( ) Ab-S:() Ect:() Multi:() Angella:() INDICATIONS FOR SONOGRAPHY Maternal Crohn's disease, biophysical pr ofile IMPRESSION 1. Barrett in cephalic prese ntation. 2. Normal BPP (8/8). OBSERVATIONS Observations FHR: ??124 bpm Presentation: ??Cephalic Amniotic Fluid Fluid Volume: ??Normal MVP: ??4.73 cm Biophysical Profile Variables Score: 2=Normal, 0=Abnormal. ?? Movements: 2 ??Breathing Movements: 2 ?? Tone: 2 ??Amniotic Fluid Volume: 2 Total Score = 8/8 COMMENTS Transabdominal ultrasound was performed. Biophysical Profile Barrett Barrett intrauterine in ceph alic presentation. BPP score is 8/ 8. The maximum vertical pocket is 4.73 cm. Preliminary Read by Rae Epstein ( Kris), R.D.M.S. on 02/12/2022 3:31:21 PM. Auto Rebuilder: ??Rae Epstein (Kris) , RSidra.M.S. Thank You For This Referral Procedure Note Silvia Acosta M.D. - 02/12/2022Forma tting of this note might be different from the original. LAUREL CARABALLO Assessment Exam, 02/12/2022 EXAM INFORMATION Patient Name: LAUREL CARABALLO : 1995 Age: 27 yrs Sex: Female Ref Phys: SHIELA Maddox CHRISTI Exam Date: 02/12/2022 Procedure: US OB LIMITED AND BPP WITHOUT NON STRESS Exam Site: [facility] OB 3 Plurality: 1 LMP: 05/21/2021GA By LMP: 38w1d GA Method: LATONYA GA: 38w0d LATONYA: 02/26/2022 OBHx: [G:(1)] F Trm:() Pre:() C-Sec:() Ab-I:() Ab-S:( ) Ect:() Multi:() Angella:() INDICATIONS FOR SONOGRAPHY Maternal Crohn's disease, biophysical pr ofile IMPRESSION 1. Barrett in cephalic prese ntation. 2. Normal BPP (06/18). OBSERVATIONS Observations FHR: 124 bpm Presentation: Cephalic Amniotic Fluid Fluid Volume: Normal MVP: 4.73 cm Biophysical Profile Variables Score: 2=Normal, 0=Abnormal. Movements: 2 Breathing Movements:2 Tone: 2 Amniotic Fluid Volume: 2 Total Score = 8/8 COMMENTS Transabdominal ultrasound was performed. Biophysical Profile Barrett Barrett intrauterine in [facility] alic presentation. BPP score is 8/ 8. The maximum vertical pocket is 4.73 cm. Preliminary Read by Rae Epstein ( Kris), R.D.M.S. on 02/12/2022 3:31:21 PM. Auto Rebuilder: Rae Epstein (Kris) RMichaelM.S. Thank You For This Referral Shiela Barraza APRN, C.N.P., M.S.N. IMG OB US PROCEDURE S documented in this encounter Visit Diagnoses Diagnosis High Risk (HCC) documented in this encounter Additional Health Concerns Assessment Noted Time PHQ-9 Depression Total Score: 4 11/29/2021 10:43 AM CS T documented as of this encounter Care Teams Cost Report Clerk Relationship Specialty Start Date End Date Belkys Marshall APRN, C.NVira., M.S. PCP - General Family Medicine 11/16/19 [address] [place] [address] documented as of this encounter
--- OUTSIDE RECORDS SUMMARY | 2022-08-31 12:33 | XMS_ITS | Encounter Summary ---
:1995 Author Organization [facility] Address [address] [place] [address] Care Team Providers Name Role Phone Belkys Marshall APRN CJuliaNJuliaP., M.S. Primary Care Provider [phone]- [phone] Encounter Details Date Type Department Care Team Description 02/21/2022 Anesthesia Event [facility], [facility], [facility] [address] [place], [place] [address] [facility] [phone] [place] [address] [phone] Anesthesia Record Procedure Summary Procedure Name Responsible Anesthesia Start Anesthesia Stop Time Anesthesiologist Time LABOR SAFETY SCREEN Events No events on file. No medications on file. Agents No agents on file. Blood No blood administrations on file. Lines, Drains, and Airways Type Details Placement Removal Wound 02/20/22; 1801; N; Incision; 02/20/22 180 by Carri Yee, Abdomen; Lower, Medial; R.N. documented in this encounter Social History Tobacco [...] or relatives? How often do you attend latter-day or 1 to 4 times per year 11/11 jew services? Do you belong to any clubs or Yes 11/23/2021 organizations such as latter-day groups, unions, fraternal or athletic groups, or [...] have completed or the highest Connie, MEd, PONDMAN, LORI) degree you have received? Sex Assigned at Date Recorded Female 07/18/2021 2:49 PM CDT documented as of this encounter OR Notes Anesthesia Preprocedure Evaluation - Ronny Zeng M.B.BJuliaS. - 02/19/2022 10:20 AM CDT Preprocedure Anesthesia & H&P Assessment Procedure Summary Date: 02/19/22 Procedure: LABOR SAFETY SCREEN Pertinent components of the patient's history including [...] with patient /legal guardian or through an superintendent oil field drilling. Risks/Benefits/Alternatives of Blood transfusion discussed with patient [...] Antiemetic: dexamethasone, Zofran documented in this encounter Plan of Treatment Not on filedocumented as of this encounter Visit Diagnoses Not on filedocumented in this encounter Additional Health Concerns Assessment Noted Time PHQ-9 Depression Total Score: 4 11/29/2021 10:43 AM CS T documented as of this encounter Care Teams Stone Chimney Mason Relationship Specialty Start Date End Date Belkys Marshall APRN, C.N.P., M.S. PCP - General Family Medicine 11/16/19 [address] [place] [address] documented as of this encounter
--- OUTSIDE RECORDS SUMMARY | 2022-08-31 12:33 | XMS_ITS | Encounter Summary ---
:1995 Author Organization [facility] Address [address] [place] [address] Care Team Providers Name Role Phone Belkys Marshall APRN C.N.P., M.S. Primary Care Provider [phone] Reason for Referral Outpatient (Routine) - Authorized Specialty Diagnoses / Referred By Referred To Cont act Procedures Contact Gastroenterology and Diagnoses Care And Lactating Colitis Crohn's (HCC) [facility] ELVIN BARAJAS [address] [place] [phone] Referral ID Status Reason Start Expiration Visits Visits Date Date Requested Authorized [id number] Authorized Specialty 02/23/2022 02/23/2023 1 1 Services Required Scheduling Instructions Schedule with previous provider. Medication Prior Authorization - Closed Specialty Diagnoses / Procedures Referred By Contact Refer red To Contact Annelise Caicedo APRN, CNM [address] [place] [phone] Referral ID Status Reason Start Date Expiration Date Visits Requ ested Visits Authorized [id number] Closed 1 1 Reason for Visit Reason Comments Scheduled Induction 39 Week IOL history of Covid in and Crohns. Auth/Cert Specialty Diagnoses / Procedures Referred By Contact Refer red To Contact Diagnoses 39 Weeks Gestation ([facility]) Encounter for delivery without indication ([facility]) Procedures IP L & D Referral ID Status Reason Start Date Expiration Date Visits Requ ested Visits Authorized [id number] 1 1 Encounter Details Date Type Department Care Team Description 02/19/2022 - [facility] Theodore Moore M.D. [address] [place] [address] [phone] 39 Weeks Gestation (Primary Dx) ; 02/23/2022 Encounter [facility] Ssd[facility]entin Enid Y, M.D. [address] [place] [address] [phone] Care And Lactating; [facility], Ronni Crouch M.D., Ph.D. [address] [place] [phone] Hemorrhage Delayed With Caio grewal ([facility]); Soledad Edwards M.D. [address] [place] [phone] Thyroiditis Amador's; Building, Third Breastfeedin g Difficulty Mom; Floor Colitis Crohn's ([facility]) [address] [place] [phone] Social History Tobacco Use Types Packs/Day Years [...] or relatives? How often do you attend jehovah's witness or 1 to 4 times per year 11/11 scientologist services? Do you belong to any clubs or Yes 11/23/2021 organizations such as jehovah's witness groups, unions, fraternal or athletic groups, or [...] have completed or the highest Connie, MEd, DEVOPS CONSULTANT, LORI) degree you have received? Sex Assigned at Date Recorded Female 07/18/2021 2:49 PM CDT documented as of this encounter Last Filed Vital Signs Vital Sign Reading Time Taken Comments Blood Pressure 106/69 02/23/2022 8:35 AM CDT Pulse 71 02/23/2022 8:35 AM CDT Temperature 36.8 ??C (98.2 ??F) 02/23/2022 8:35 AM CDT Respiratory Rate 16 02/23/2022 8:35 AM CDT Oxygen Saturation 96% 02/23/2022 8:35 AM CDT Inhaled Oxygen Concentration - - Weight 80 kg (176 lb 5.9 oz) 02/19/2022 8:24 AM CDT Height 165.1 cm (5' 5) 02/19/2022 8:24 AM CDT Body Mass Index 29.35 02/19/2022 8:24 AM CDT documented in this encounter Discharge Summaries Annelise Caicedo APRN, ELVIN - 02/23/2022 1:57 PM CDT Discharge Summary DEMOGRAPHIC INFORMATION [facility] Number: [id number] Patient Name: Laurel Mcdonald Age: 27 y.o. Birthdate: 1995 Address: [facility] [place] [address] [facility] Hospital Summary Admission Date: 02/19/2022 Dismissal Date: 02/23/2022 Service: Obstetrics and Gynecology Location: [facility] ([facility]) Discharging provider: Susie Caicedo APRN, CNM FINAL PRIMARY DIAGNOSIS #1 Primary section, at 39w1d ADDITIONAL DIAGNOSES #1 Asthma Mild Intermittent ([facility]) #2 Colitis Crohn's ([facility]) #3 Thyroiditis Amador's #4 Care And Lactating ([facility]) #5 Personal History Of Infectious And Parasitic Disease (COVID-19) #6 Section Delivery ([facility]) #7 Hemorrhage Delayed With Delivery ([facility]) BRIEF HOSPITAL COURSE The patient was admitted to the [facility] for induction of labor. Her was [...] was uncomplicated. She received her care at [facility]. Feeding Method: breast feeding with difficulties [...] mg, oral, Every 6 hours PRN ??? ywlkwqj-Nt-soic-FA 27 mg iron- 1 mg tablet 1 tablet, oral, Daily ??? sennosides (SENOKOT) 17.2 mg, oral, Daily at bedtime ??? simethicone (MYLICON) 160 mg, oral, Every 6 hours PRN ??? ustekinumab (Stelara) 90 mg/mL injection Inject 90 mg subcutaneously every 8 weeks. ALLERGIES/ADVERSE REACTIONS Allergies Allergen Reactions ??? Codeine GI intolerance ??? Topiramate Other (see comments) Medications prescribed may negatively interact with certain misu-zci-nejormm medications or foods. Please review medication labels for additional information or call your pharmacy or primary care team with questions. IMMUNIZATIONS GIVEN None Needed CONDITION AT DISCHARGE stable DISCHARGE DISPOSITION Home/Self Care FOLLOW-UP RECOMMENDATIONS AND CONTACT INFORMATION You need to follow-up with your primary maternity care provider team in 6-8 weeks. A Patient Appointment Continuous Improvement Analyst will contact you to schedule this visit. If you delivered at [facility] but received your care elsewhere, it may be more convenient to follow-up in your hometown. Ask your [facility] team if this is appropriate.However, if you are still in [place] and experiencing related problems, call the OB Clinic, Mauricio 3B at [phone] [facility] Triage, Yoselin Desk 3C at [phone]. Clinic phone numbers: Mauricio 3B: [facility]: [facility]: [facility]: [facility]: or ([phone]) Always call 911 or go to your [...] Take 1 tablet by mouth 0 02/23/2022 hkmftzc-Gc-yefa-FA 27 daily. mg iron- 1 mg tablet [...] 30 capsule 6 02/24/20 (COLACE) 100 mg capsule total) by mouth [...] as of this encounter Progress Notes Annelise Caicedo, KARL, ADRIENNEM - 02/23/2022 1:58 PM CDT Rounds Discharge Note SUBJECTIVE Laurel Mcdonald is a 27 y.o. who is post-op day 3 after a primary delivery. The patient was admitted to the [facility] for induction of labor. Her was [...] was uncomplicated. She received her care at [facility]. Feeding method for her infant: breast [...] delivery. The patient was admitted to the [facility] for induction of labor. Her was [...] was uncomplicated. She received her care at [facility]. : The patient is currently . Feeding method for her : breast feeding with difficulties at this time, [...] And Lactating (HCC) #3 Asthma Mild Intermittent (HCC) #4 Colitis Crohn's (HCC) #5 Thyroiditis Amador's #6 Personal History Of Infectious And Parasitic Disease (COVID-19) #7 Hemorrhage Delayed With Delivery (HCC) Post-Operative Day 2 Continue with routine cares. [...] delivery. The patient was admitted to the [facility] for induction of labor. Her was [...] was uncomplicated. She received her care at [facility]. : The patient is currently . Feeding method for her infant: breast feeding successfully REVIEW OF SYSTEMS Physically, [...] none apparent Clinical signs or symptoms of LOAD MIXER toxicity (during this admission): none Does patient [...] in 2 hours. Vera Mcwilliams M.D. Yousuf Lewis M.D., M.S. - 02/20/2022 5:16 AM CDT [...] Medley M.D. - 02/20/2022 5:23 AM CDT Shingle Trimmer Teaching Physician Statement: I have discussed the [...] understanding. All of her questions were answered. Kasey Gross Simrit K, M.D., M.S. - 02/20/2022 2:49 AM CDT [...] when clinically indicated after cook is expulsed Rom[facility] Dara M.D., Ph.D. Theodore Moore M.D. - 02/19/2022 9:40 AM CDT OB Staff: 27 y.o. 39w0d admitted for induction of labor at term due to complicated by history of COVID-19. FHT: Baseline 135, Moderate variability, Accels present, No decels. Reactive NST. [place]: No significant uterine activity. Assessment & Plan: [...] 11/29/2021 HCT 36.0 11/29/2021 PLT 265 11/29/2021 [id number] 110 11/29/2021 HEPBSAG Nonreactive 10/10/2018 HEPBSAGPREN Negative 08/01/2021 [id number] Non-Reactive 10/10/2018 [id number] Negative 08/01/2021 RUBELLAIGG Positive 08/01/2021 GBS No [...] M.D., M.S. - 02/19/2022 10:21 AM CDT Shingle Trimmer Teaching Physician Statement: I have discussed the [...] documented in this encounter Nursing Notes Rhina Jones R.N. - 02/23/2022 3:29 PM CDT Shift [...] Goal: Facilitate maternal - bonding Outcome: Progressing Call, Tamera Campos R.N. - 02/20/2022 8:32 PM CDT Problem: [...] Miscellaneous Notes Note - Gayla Juares R.N., I.B.CJuliaLJuliaCJulia - 02/23/2022 2:29 PM CDT This note [...] Labor Complications: Delivery Type: , Low Transverse Congers Weight: 3910 g 1 Minute 5 Minute [...] a day for 10 days. ??? [DISCONTINUED] sqdjnyj-Jf-uhdn-FA 27 mg iron- 1 mg tablet, Take [...] Significant other: Spouse, living together Assessment State: Active, alert Suck: Rhythmic, Immature suck: [...] R.N., Manju Note - Gayla Juares R.N., Luis Angel. - 02/22/2022 12:33 PM CDT This note [...] at bedtime. on an empty stomach) ??? kdlgrzh-Ps-uxpc-FA 27 mg iron- 1 mg tablet, Take [...] Spouse, living together Infant Assessment Infant State: Drowsy Infant Suck: Rhythmic, Immature suck: 1-8 suckling bursts [...] Labor Complications: Delivery Type: , Low Transverse Congers Weight: 3910 g 1 Minute 5 Minute [...] mouth daily. on an empty stomach ??? jljlxam-Ww-pguh-FA 27 mg iron- 1 mg tablet, Take [...] No Significant other: Spouse, living together Assessment Infant State: Quiet Infant Suck: Immature suck: 1-8 [...] follow up plan: consult Joanna Gallego R.N., AnaLJuliaCJulia Hospital Course - Nataliia Longoria M.D. - 02/20/2022 6:44 PM CDT The patient was admitted to the [facility] for induction of labor. Her was [...] was uncomplicated. She received her care at [facility]. L&D Delivery Note - Karla Moraes M.D. - 02/20/2022 6:12 PM CDT OB Delivery Note 02/20/2022 Laurel Mcdonald 27 y.o. Hammad Mcdonald [[phone]] Delivery Providers Delivering clinician: Karla Moraes M.D. Provider Role Alix Oliver R.N. Delivery Nurse Steven Mcdonald R.N. Nursery Nurse Nataliia Longoria M.D. Primary Team Resident Surgeon(s) and Role: * Karla Moraes M.D. - Primary * Nataliia Longoria M.D. - Hand Violin Maker A first crusher actively participated and was necessary for one [...] Delivery Time: (Delivered) Hours: 12 Minutes: 24 Congers Sex: Male Weight: 3.91 kg 1 Minute [...] 2 g (ANCEF) 2 g intravenous Given Beth Gentile 02/20/2022 171 azithromycin in NaCl 0.9% IVPB 500 mg [...] Yes Removal Reason: Securement Method Securing device 02/20/22555 Output (mL)- Urine 600 mL 02/20/22 0936 [...] incision was made and extended bilaterally. The infant was delivered from the OP position. See [...] procedure ar e in the results section. SECTION 02/20/2022 4:28 PM 39 Weeks Gestation CDT MBC TISSUE DONOR Routine 02/20/2022 10:00 AM [...] Laterality Blood (Blood, 04/06/2022 2:04 PM 04/06/20 2:41 Venous) CDT PM CDT Annelise Caicedo APRN, CNM LAB BLOOD ADD-ON Performing Organization Address [facility] Phon e Number [facility] - [address] [place], [place] [address] [facility] [place], [place] [id number] [place] [address] (ABNORMAL) CBC without Differential (04/06/2022 2:04 PM CDT) [facility] Method Time Signature Hemoglobin 15.1 (H) 11.6 [...] Laterality Blood (Blood, 04/06/2022 2:04 PM 04/06/20 2:20 Venous) CDT PM CDT Annelise Caicedo APRN, CNM LAB BLOOD ADD-ON Performing Organization Address City/[facility] Phon e Number [facility] - [address] [place], [place] [address] [facility] [place], [place] [id number] [place] [address] (ABNORMAL) CBC without Differential (02/21/2022 5:51 AM CDT) [facility] Method Time Signature Hemoglobin 11.6 11.6 - [...] City/State/ZIP Code Phon e Number [facility] - [address] [place] [phone] [facility] [place] [address] Laboratories-[facility] [address] [facility] Tissue Donor Screen Test (02/20/2022 10:00 AM CDT) [facility] Method Time Signature HBsAg Screen Non-reacti [...] [facility] Donor Non-reactive 02/23/2022 9:45 AM CDT MBC Comment: Failure to detect WNV RNA does not rule out the possibility of West Nile virus infection . This result should be evaluated in the context of th e individual's risk factors and clinical findings. Specimen Anatomical Collection Method Collection Time Receive d Time (Source) Location / / Volume Laterality Blood (Blood, 02/20/2022 10:00 02/20/2022 Venous) AM CDT 10:11 AM CDT [facility] DONOR TESTING AND [facility] - 02/23/2022 9:45 AM CDT Specimen Information: Specimen ID: [id number] Specimen Type: Blood Specimen Collection Start Date: 02/21/20 10:00 AM Specimen Received Date: 02/20/2022 10:11 AM Specimen ID: [id number] Specimen Type: Blood Specimen Collection Start Date: 02/21/20 10:00 AM Specimen Received Date: 02/20/2022 10:11 AM Specimen ID: [id number] Specimen Type: Blood Specimen Collection Start Date: 02/21/20 10:00 AM Specimen Received Date: 02/20/2022 10:11 AM Specimen ID: [id number] Specimen Type: Blood Specimen Collection Start Date: 02/21/20 10:00 AM Specimen Received Date: 02/20/2022 10:11 AM Emerald Nicholas M.D. LAB BLOOD NON ADD-ON Performing Organization Address City/State/ZIP Code Phon e Number [facility] DONOR [address] [place] [address] [place]ING [place] [address] Donor Testing and [facility] [address] [facility] [facility] [address] Type and Screen (with reflex Antibody ID) (02/19/2022 8:51 AM CDT) [facility] gist Method Time Signature ABORh O Pos Not 02/19/2022 ETRM applicable 10:40 AM CDT Antibody Negative Negative 02/19/2022 ETRM Screen 10:49 AM CDT Type & Screen 02/22/2022 02/19/2022 ETRM Expiration 23:59 10:40 AM CDT Testing [place] DEFAULT 02/19/2022 ETRM Location 8:56 AM CDT Specimen Anatomical Collection Method Collection Time Receive d Time (Source) Location / / Volume Laterality Blood (Blood, 02/19/2022 8:51 AM 02/20/20 8:56 Venous) CDT AM CDT Emerald Nicholas M.D. LAB BLOOD BANK TEST ORDERABL ES Performing Organization Address City/State/ZIP Code Phon e Number [facility] - [address] [place], [place] [address] [facility] [place] [address] Laboratories-[facility] [address] documented in this encounter Visit Diagnoses Diagnosis 39 Weeks Gestation (HCC) - Prim sadie Care And Lactating Hemorrhage Delayed With Deliv carmina (HCC) Thyroiditis Amador's Difficulty Mom Colitis Crohn's (HCC) Asthma Mild Intermittent (HCC) Colitis Crohn's (HCC) Personal History Of Infectious And Zenon itic Disease (COVID-19) Thyroiditis Amador's Section Delivery (HCC) Care And Lactating Hemorrhage Delayed With Deliv carmina (HCC) documented in this encounter Admitting Diagnoses Diagnosis 39 [...] Given 02/22/2022 9:23 PM CDT 1,000 mg calcium carbonate chewable tablet Given 02/20/2022 7:1 2 AM CDT 400 mg of calcium 400 mg of calcium (TUMS) 400 mg of calcium, oral, Every 2 hour PRN, indigestion, Starting on Sat02/19/22 at 0844, L&D Pre-Delivery, One 500 mg tablet contains 200 mg of calcium. 500 mg calcium carbonate contains 200 mg of elemental calcium. docusate sodium capsule 100 mg (COLACE) Given 02/23/2022 10:03 AM CDT 100 mg 100 mg, oral, 2 times daily, First dose on Sat02/21/22 at 0900, Post-, Do NOT crush or chew. Given 02/22/2022 9:23 PM CDT 100 mg Given 02/22/2022 8:29 AM CDT 100 mg fentaNYL injection 50 mcg (SUBLIMAZE) Given 02/19/2022 10:42 PM CDT 50 mcg 50 mcg, intravenous, Every 1 hour PRN, moderate pain or score 4-6 of 10, severe pain or score 7-10 of 10, for labor pains, Starting on Sat02/19/22 at 0844, For 3 doses, L&D Pre-Delivery, Consultation with Anesthesia for pain control if patient requests regional anesthesia and in active labor or membranes ruptured. Given 02/19/2022 5:53 PM CDT 50 mcg Given 02/19/2022 2:23 PM CDT 50 mcg fentaNYL injection 50 mcg (SUBLIMAZE) 50 mcg, intravenous, Every 1 hour PRN, s evere pain or score 7-10 of 10, moderate pain or score 4-6 of 10, Starting on Sat02/19/22 at 23 57, For 2 doses fentaNYL injection 75 mcg (SUBLIMAZE) Given 02/20/2022 12:10 AM CDT 75 mcg 75 mcg, intravenous, Once, On Sat02/20/22 at 0000, For 1 dose hydrocortisone 1 % cream (CORTAID) Given 02/23/2022 2:00 AM CDT topical, 2 times daily PRN, irritation, rash, Starting on Sat02/23/22 at 0108 ketorolac injection 15 mg (TORADOL) Given 02/21/2022 7:42 AM CDT 15 mg 15 mg, intravenous, Every 6 hours, First dose on Sat02/20/22 at 1900, For 3 doses, Post-, Start no sooner than 4 hours after last ketorolac dose. Administer acetaminophen at same time as ketorolac. Adult IV push rate: Over 15 seconds. Peds IV push rate: Over 1 minute. 60 mg dose only for IM, not recommended for IV. Given 02/21/2022 1:06 AM CDT 15 mg Given 02/20/2022 7:28 PM CDT 15 mg ketorolac injection 15 mg (TORADOL) Given 02/22/2022 2:00 AM CDT 15 mg 15 mg, intravenous, Every 6 hours PRN, moderate pain or score 4-6 of 10, Starting on Sat02/21/22 at 1046, For 3 doses, Post-, Start no sooner than 4 hours after last ketorolac dose. Administer acetaminophen at same time as ketorolac. Adult IV push rate: Over 15 seconds. Peds IV push rate: Over 1 minute. 60 mg dose only for IM, not recommended for IV. Given 02/21/2022 7:50 PM CDT 15 mg Given 02/21/2022 1:32 PM CDT 15 mg lactated Ringer's bolus 500 mL New Bag 02/20/2022 11:31 AM CDT 500 mL 1000 mL/hr 500 mL, intravenous, at 1,000 mL/hr, Administer over 30 Minutes, As needed, If Category II or III heart rate pattern, Starting on Sat02/19/22 at 0844, For 1 dose, L&D Pre-Delivery lactated ringers Rate/Dose Verify 02/20/2022 10:00 AM 125 mL/hr 125 mL/hr 125 mL/hr, intravenous, CDT Continuous, Starting on Sat02/19/22 at 0845, L&D Pre-Delivery New Bag 02/20/2022 9:36 AM CDT 125 mL/hr 125 mL/hr New Bag 02/20/2022 2:00 AM CDT 125 mL/hr 125 mL/hr lidocaine 5 % 1 patch Medication Applied 02/23/2022 1:58 AM 1 patch Left Lower (LIDODERM) CDT Abdomen 1 patch, transdermal, Administer over 12 Hours, Daily, First dose on Sat02/21/22 at 2030, Remove after 12 hours. Medication Applied 02/21/2022 10:37 PM CDT 1 patch Left Lower Abdomen mercaptopurine tablet 50 mg (PURINETHOL) Given 02/19/2022 10:34 PM CDT 50 mg 50 mg, oral, Daily, First dose on Sat02/19/22 at 2200, Administer on an empty stomach (1 hour before or 2 hours after eating). mercaptopurine tablet 50 mg (PURINETHOL) Given 02/22/2022 [...] nausea, vomiting, Starting on Sat02/20/22 at 1125 miSOPROStol tablet 25 mcg (CYTOTEC) Given 02/19/2022 9:39 AM CDT 25 mcg 25 mcg, vaginal, Every 4 hours PRN, until a maximum of 6 doses is reached or at the onset of active labor, Starting on Sat02/19/22 at 0844, For 6 doses, L&D Pre-Delivery, Do not use misoprostol (Cytotec) in patients with a history of prior uterine surgery including section. Notify provider to discontinue misoprostol for more than 5 uterine contractions in a 10 minute segment averaged over a 30 minute period. Wait 4 hours after last dose of misoprostol before initiating oxytocin (Pitocin)., Indications: cervical ripening procedure ondansetron (PF) injection 4 mg (ZOFRAN) Given 02/20/2022 10:45 AM CDT 4 mg 4 mg, intravenous, Every 6 hours PRN, nausea, vomiting, Starting on Sat02/19/22 at 0844, L&D Pre-Delivery, If patient unable to take oral Given 02/20/2022 5:15 AM CDT 4 mg Given 02/19/2022 3:17 PM CDT 4 mg ondansetron ODT disintegrating tablet 4 mg Given [...] or score 7-10 of 10, Starting on 02/21/22 at 1713, [...] 9:53 PM CDT 5 mg oxytocin 60 Rate/Dose Verify 02/20/2022 10:00 18 george-units/min 18 m L/hr george-Units/mL in NaCl AM CDT 500 mL infusion (PITOCIN) 2-20 george-units/min (2-20 mL/hr), intravenous, Continuous, Starting on Sat02/19/22 at 0845, L&D Pre-Delivery, Begin infusion after 20 minutes of baseline /uterine monitoring or 4 hours after last misoprostol (CYTOTEC) placement or 30 minutes after removal of dinoprostone (CERVIDIL). 30 Units in 500 mL, Initiate at: 2 george-Units/min, Titrate at: 2 george-Units/min. every 30 min., Goal: Until contractions occur at a frequency of 2-3 min., are strong to palpation, or reach a mximum of 250 [place]ony units, and/or cervical change(s) occur. Rate/Dose Change 02/20/2022 9:50 AM CDT 18 george-units/min 18 mL/hr Rate/Dose Change 02/20/2022 6:45 AM CDT 16 george-units/min 16 mL/hr oxytocin 60 Continued from 02/20/2022 6:45 100 [...] (TYLENOL) 0112 (Given - Provider: Cassandra Modi R.N.)0638 (Given - Provider: Cassandra Modi R.N.)1332 (Given - Provider: Rhina Rogel R.N.)1950 (Given - Provider: Irina Palafox R.N.) 0200 (Given - Provider: Irina Palafox R.N.)0829 (Given - Provider: Debbie Ron)1451 (Given - Provider: Rhina Jones RJuliaNJulia)2123 (Given - Provider: Jefry SchaferNJulia) 0341 (Given - Provider: Adela duarte RJuliaNJulia)1003 (Given - Provider: Mateo Mcmillan)1530 (Due - Provider: Chelly Abdullahi, Pharm.D., R.Ph.) 1,000 mg, oral, Every 6 hours, First dos e on Sat02/20/22 at 1900, Post-, Administer acetaminophen at same time as ketorolac or ibuprofen. docusate sodium capsule 100 mg (COLACE) 0741 (Given - Provider: Saul Smiley)1950 (Given - Provider: Irina Palafox R.N.) 0829 (Given - Provider: Debbie Ron)212 (Given - Provider: Adela Cochran R.NJulia) 1003 (Given - Provider: Mateo Mcmillan - [...] IV. lidocaine 5 % 1 patch (LIDODERM) 2236 (Medication Appl ied - Provider: Irina Palafox R.N. - Comment: above incision) 0829 (Medication Removed - Provider: Rhina Jones R.N.) 0158 (Medication Applied - Provider: Jacob Cochran R.N.)1444 (Medication Removed - Provider: Rhina Jnoes R.N.) 1 patch, transdermal, Administer over 12 Hours, Daily, First dose on Sat02/21/22 at 2030, Remove after 12 hours. mercaptopurine tablet 50 mg (PURINETHOL) 105 (Given - Provider: Cassandra Modi R.N.)2015 (Given - Provider: Irina Palafox R.N. - Comment: pt usual administration time) 2100 (Given - Provider: Adela Cochran RChris) 50 mg, oral, Daily, First dose (after la st modification) on Sat02/21/22 at 0015, Administer on an empty stomach (1 hour before or 2 hours after eating). sennosides tablet 17.2 mg (SENOKOT) 1949 (Given - Prov ider: Irina Palafox R.N.) 2122 (Given - Provider: Adela Cochran R.N.) 17.2 [...] mg of calcium, oral, Every 2 hour UT N, indigestion, Starting on Sat02/20/22 at 2113, [...] 1332 ( Given - Provider: Rhina Rogel RJuliaN.)1950 (Given - Provider: Irina Palafox R.N.) 0200 (Given - Provider: Irina Palafox RJuliaNJulia) 15 mg, intravenous, Every 6 hours PRN, [...] mg (ZOFRAN-ODT) 0416 (Given - Provider: Adela Cochran RJuliaNJulia) 4 mg, oral, Every 6 hours PRN, nausea, v omiting, Starting on Sat02/20/22 at 2113, Post-, First line When splitting ODT at bedside, handle with gloves and a pill splitter to prevent moisture contact. oxyCODONE IR tablet 10 mg (ROXICODONE)(Linked Group 1) 2410 (See Alternative - Provider: Debbie Ron)1451 (See Alternative - Provider: Rhina Jones RChris)215 (See Alternative - Provider: Jefry SchaferNJulia) 0155 (Not Given - Provider: Melanie Schafer.N. - Reason: Other - Comment: see other oxy order)1444 (See Alternative - Provider: Rhina Jones R.N.) 10 mg, oral, Every 4 hours PRN, severe p ain or score 7-10 of 10, Starting on 02/21/22 at 1713, Post-, Begin 24 hours after neuraxial long-acting opiate given or if no neuraxial long-acting opiate used start immediately post-operative. oxyCODONE IR tablet 10 mg (ROXICODONE)(Linked Group 2) 2152 (See Alternative - Provider: Adela Cochran R.N.) 015 (Given - Provider: Jefry SchaferN.)1003 (See Alternative - Provider: Mateo Mcmillan) 10 mg, oral, Every 4 hours PRN, severe p ain or score 7-10 of 10, Starting on Pura 02/22/22 at 1713, To be administered in the first 24 hours after intrathecal dose given. oxyCODONE IR tablet 5 mg (ROXICODONE)(Linked Group 1) 0828 (Given - Provider: Debbie Ron)145 (Given - Provider: Rhina Jones R.N.)2150 (Not Given - Provider: Adela Cochran RJuliaNJulia - Reason: Other - Comment: See other [...] IR tablet 5 mg (ROXICODONE)(Linked Group 2) 2152 (Given - Provider: Adela Cochran R.N.) 0158 (See Alternative - Provider: Jameel Cochran R.N.)1003 (Given - Provider: Mateo Mcmillan) 5 mg, oral, Every 4 hours PRN, moderate pain or score 4-6 of 10, Starting on Pura 02/22/22 at 1713, To be administered in the first 24 hours after intrathecal dose given. promethazine injection 6.25 mg (PHENERGAN) 6.25 mg, intravenous, As needed, nausea, vomiting, Starting on e 02/20/22 at 2113, Post-, If symptoms continue 30 minutes after ondansetron and patient unable to take oral. Frequency: May repeat promethazine 6.25 mg IV every 10 minutes until nausea/vomiting relieved or until 25 mg given in a 4 hour period. promethazine tablet 12.5 mg (PHENERGAN) 12.5 mg, oral, As needed, nausea, vomiti ng, Starting on e 02/20/22 at 2113, Post-, If symptoms continue 30 minutes after ondansetron. Frequency: May repeat in 30 minutes once if nausea and vomiti ng unrelieved not to exceed 25 mg given in a 4 hour period. simethicone chewable tablet 160 mg (MYLICON) 2238 (Giv en - Provider: Irina Palafox RJuliaN.) 1451 (Given - Provider: Rhina Jones RJuliaN.) 160 mg, oral, Every 6 hours PRN, flatule nce, for abdominal gas, Starting on e 02/20/22 at 2113, Post- witch mega pad 1 application (NOEL) 1227 (Given - Pr ovider: Saul Smiley) [...] of 10, Starting on 02/21/22 at 1713, Post-
Begin 24 hours after neuraxial long-acting opiate given or if no neuraxial long-acting opiate used start immediately post-operative.
Or oxyCODONE IR tablet 10 mg (ROXICODONE)Jump to med 10 mg, oral, Every 4 hours PRN, severe p ain or score 7-10 of 10, Starting on 02/21/22 at 1713, Post-
Begin 24 hours after [...] documented as of this encounter Care Teams Forestry Fire Aide Relationship Specialty Start Date End Date Belkys Marshall APRN, C.N.P., M.S. PCP - General Family Medicine 11/16/19 [address] [place] [address] documented as of this encounter
--- OUTSIDE RECORDS SUMMARY | 2022-08-31 12:33 | XMS_ITS | Encounter Summary ---
:1995 Author Organization [facility] Address [address] [place] [address] Care Team Providers Name Role Phone Belkys Marshall APRN, C.N.P., M.S. Primary Care Provider +1- [phone] Encounter Details Date Type Department Care Team Description 02/23/2022 Clinical Communication [facility] Yoselin Jimenez, [address] [facility] Pharm.D., R.Ph. [place], [place] [address] [place] [address] [place], [place] [phone] Social History Tobacco Use Types Packs/Day Years [...] or relatives? How often do you attend adventism or 1 to 4 times per year 11/11 hoahaoism services? Do you belong to any clubs or Yes 11/23/2021 organizations such as adventism groups, unions, fraternal or athletic groups, or [...] place to sleep or slept in a jail (including now)? Education Answer Date Recorded What is the highest level of school Master's degree (e.g., M A, MS, 11/23/2021 you have completed or the highest Connie, MEd, AVIATION SUPPORT EQUIPMENT REPAIRER, LORI) degree you have received? Sex Assigned at Date Recorded Female 07/18/2021 2:49 PM CDT documented as of this encounter Plan of Treatment Not on filedocumented as of this encounter Visit Diagnoses Not on filedocumented in this encounter Additional Health Concerns Assessment Noted Time PHQ-9 Depression Total Score: 4 11/29/2021 10:43 AM CS T documented as of this encounter Care Teams Furnace Clerk Relationship Specialty Start Date End Date Belkys Marshall, KARL, C.N.P., M.S. PCP - General Family Medicine 11/16/19 [address] [place] [address] documented as of this encounter
--- OUTSIDE RECORDS SUMMARY | 2022-08-31 12:33 | XMS_ITS | Encounter Summary ---
:1995 Author Organization [facility] Address [address] [place] [address] Care Team Providers Name Role Phone Belkys Marshall APRN C.N.P., M.S. Primary Care Provider +1- [phone] Encounter Details Date Type Department Care Team Description 02/18/2022 Clinical Communication Department of Syl Mckinney, Obstetrics and R.N. Gynecology in [address] [place] [address] [place], [place] [phone] (Work) [phone] Social History Tobacco Use Types Packs/Day Years [...] or relatives? How often do you attend lutheran or 1 to 4 times per year 11/11 evangelical services? Do you belong to any clubs or Yes 11/23/2021 organizations such as lutheran groups, unions, fraternal or athletic groups, or [...] have completed or the highest Connie, MEd, CARTON MAKING MACHINIST, LORI) degree you have received? Sex Assigned at Date Recorded Female 07/18/2021 2:49 PM CDT documented as of this encounter Miscellaneous Notes Telephone Encounter - Syl Mckinney, R.N. - 02/18/2022 2:30 PM CDT Pt was called with report time of 0730 tomorrow SaturdayFebruary 19 for scheduled IOL. Reviewed general diet and visitor policies. Questions answered. documented in this encounter Plan of Treatment Not on filedocumented as of this encounter Visit Diagnoses Not on filedocumented in this encounter Additional Health Concerns Infection Onset Date Last Indicated Resolved Time COVID19 Pending 02/18/2022 02/18/2022 02/18/2022 1:34 PM CDT Assessment Noted Time PHQ-9 Depression Total Score: 4 11/29/2021 10:43 AM CS T documented as of this encounter Care Teams Candle Wrapping Machine Operator Relationship Specialty Start Date End Date Belkys Marshall, KARL, C.N.P., M.S. PCP - General Family Medicine 11/16/[address] [place] [phone] documented as of this encounter
--- OUTSIDE RECORDS SUMMARY | 2022-08-31 12:33 | XMS_ITS | Encounter Summary ---
:1995 Author Organization [facility] Address [address] [place] [address] Care Team Providers Name Role Phone Belkys Marshall APRN, C.N.Mame., M.S. Primary Care Provider +1- [phone] Reason for Visit Reason Comments Scheduled Induction 39 Week IOL history of Covid in and Crohns. Auth/Cert Specialty Diagnoses / Procedures Referred By Contact Refer red To Contact Diagnoses 39 Weeks Gestation (HCC) Encounter for delivery without indication (HCC) Procedures IP L & D Referral ID Status Reason Start Date Expiration Date Visits Requ ested Visits Authorized [id number] 1 1 Encounter Details Date Type Department Care Team Description 02/20/2022 Surgery [facility], Karla Moraes, SECTION [facility] [address] [place], [place] [address] [facility] [address] [place] [address] [phone] Social History Tobacco Use Types Packs/Day Years [...] or relatives? How often do you attend holiness or 1 to 4 times per year 11/11 evangelical services? Do you belong to any clubs or Yes 11/23/2021 organizations such as holiness groups, unions, fraternal or athletic groups, or [...] have completed or the highest Connie, MEd, PULMONARY DISEASE SPECIALIST, LORI) degree you have received? Sex Assigned at Date Recorded Female 07/18/2021 2:49 PM CDT documented as of this encounter Last Filed Vital Signs Vital Sign Reading Time Taken Comments Blood Pressure 125/75 02/20/2022 11:00 AM CDT Pulse 96 02/20/2022 11:00 AM CDT Temperature 37.2 ??C (99 ??F) 02/20/2022 4:05 PM CDT Respiratory Rate 20 02/19/2022 4:32 PM CDT Oxygen Saturation 97% 02/20/2022 11:00 AM CDT Inhaled Oxygen Concentration - - Weight 80 kg (176 lb 5.9 oz) 02/19/2022 8:24 AM CDT Height 165.1 cm (5' 5) 02/19/2022 8:24 AM CDT Body Mass Index 29.35 02/19/2022 8:24 AM CDT documented in this encounter Discharge Summaries Annelise Caicedo APRN, CNM - 02/23/2022 1:57 PM CDT Discharge Summary DEMOGRAPHIC INFORMATION [facility] Number: [id number] Patient Name: Laurel Mcdonald Age: 27 y.o. Birthdate: 1995 Address: [facility] Katelin Castano [facility] [address] [facility] Hospital Summary Admission Date: 02/19/2022 Dismissal Date: 02/23/2022 Service: Obstetrics and Gynecology Location: [facility] Discharging provider: Susie Caicedo APRN, CNM FINAL PRIMARY DIAGNOSIS #1 Primary section, at 39w1d ADDITIONAL DIAGNOSES #1 Asthma Mild Intermittent (HCC) #2 Colitis Crohn's (HCC) #3 Thyroiditis Amador's #4 Care And Lactating (HCC) #5 Personal History Of Infectious And Parasitic Disease (COVID-19) #6 Section Delivery (HCC) #7 Hemorrhage Delayed With Delivery (HCC) BRIEF HOSPITAL COURSE The patient was admitted to the [facility] for induction of labor. Her was [...] was uncomplicated. She received her care at [facility]. Feeding Method: breast feeding with difficulties [...] mg, oral, Every 6 hours PRN ??? oxrfysj-Ug-qour-FA 27 mg iron- 1 mg tablet 1 tablet, oral, Daily ??? sennosides (SENOKOT) 17.2 mg, oral, Daily at bedtime ??? simethicone (MYLICON) 160 mg, oral, Every 6 hours PRN ??? ustekinumab (Stelara) 90 mg/mL injection Inject 90 mg subcutaneously every 8 weeks. ALLERGIES/ADVERSE REACTIONS Allergies Allergen Reactions ??? Codeine GI intolerance ??? Topiramate Other (see comments) Medications prescribed may negatively interact with certain ngbl-hgo-jcoqiqf medications or foods. Please review medication labels for additional information or call your pharmacy or primary care team with questions. IMMUNIZATIONS GIVEN None Needed CONDITION AT DISCHARGE stable DISCHARGE DISPOSITION Home/Self Care FOLLOW-UP RECOMMENDATIONS AND CONTACT INFORMATION You need to follow-up with your primary maternity care provider team in 6-8 weeks. A Patient Appointment Bulk Mail Clerk will contact you to schedule this visit. If you delivered at [facility] but received your care elsewhere, it may be more convenient to follow-up in your hometown. Ask your [facility] team if this is appropriate.However, if you are still in [place] and experiencing related problems, call the OB Clinic, Mauricio 3B at [phone] or the [facility] Triage, Yoselin Desk 3C at [phone]. Clinic phone numbers: Mauricio 3B: [facility]: [facility]: [facility]: [facility]: or ([phone]) Always call 911 or go to your [...] Take 1 tablet by mouth 0 02/23/2022 lftzrjb-Rf-ludl-FA 27 daily. mg iron- 1 mg tablet [...] delivery. The patient was admitted to the [facility] for induction of labor. Her was [...] was uncomplicated. She received her care at [facility]. Feeding method for her : breast feeding [...] today. Kyra Jarquin M.D. Irina Vang APRN, CNM, D.N.P. - 02/22/2022 7:45 AM CDT SUBJECTIVE Laurel Mcdonald is a 27 y.o. who is post-op day 2 after a primary delivery. The patient was admitted to the [facility] for induction of labor. Her was [...] was uncomplicated. She received her care at [facility]. : The patient is currently . [...] Section Delivery (HCC) #2 Care And Lactating ([facility]) #3 Asthma Mild Intermittent ([facility]) #4 Colitis Crohn's ([facility]) #5 Thyroiditis Amador's #6 Personal History Of Infectious And Parasitic Disease (COVID-19) #7 Hemorrhage Delayed With Delivery ([facility]) Post-Operative Day 2 Continue with routine cares. [...] delivery. The patient was admitted to the [facility] for induction of labor. Her was [...] was uncomplicated. She received her care at [facility]. : The patient is currently . [...] none apparent Clinical signs or symptoms of SAFETY SCIENTIST toxicity (during this admission): none Does patient display any postoperative anesthesia complication warranting further documentation: No Comment regarding postoperative anesthesia complication: Not yet ambulated, however motor exam 5/5 dorsi/plantarflexion, hip flexion, knee flexion/extension. Karla Moraes M.D. - 02/20/2022 5:30 PM [...] taken to the OR. Karla Moraes MD Kyra Jarquin M.D. - 02/20/2022 4:38 PM [...] in active labor Nataliia Longoria M.D. Karla Mroaes M.D. - 02/20/2022 9:25 AM CDT SUBJECTIVE: [...] Recheck in 2 hours. Vera Mcwilliams M.D. T Yousuf Lewis M.D., M.S. - 02/20/2022 5:16 [...] Medley M.D. - 02/20/2022 5:23 AM CDT Shuttle Filler Teaching Physician Statement: I have discussed the [...] variability, Accels present, No decels. Reactive NST. Beatty: No significant uterine activity. Assessment & Plan: [...] 11/29/2021 HCT 36.0 11/29/2021 PLT 265 11/29/2021 [id number] 110 11/29/2021 HEPBSAG Nonreactive 10/10/2018 HEPBSAGPREN Negative 08/01/2021 [id number] Non-Reactive 10/10/2018 [id number] Negative 08/01/2021 RUBELLAIGG Positive 08/01/2021 GBS No [...] M.D., M.S. - 02/19/2022 10:21 AM CDT Shuttle Filler Teaching Physician Statement: I have discussed the [...] Miscellaneous Notes Note - Gayla Juares R.N., Manju - 02/23/2022 2:29 PM CDT This note [...] Labor Complications: Delivery Type: , Low Transverse [place] Weight: 3910 g 1 Minute 5 Minute [...] a day for 10 days. ??? [DISCONTINUED] kcypbhe-Pw-ziuu-FA 27 mg iron- 1 mg tablet, Take [...] together Infant Assessment Infant State: Active, alert Infant Suck: Rhythmic, Immature suck: 1-8 suckling [...] Labor Complications: Delivery Type: , Low Transverse [place] Weight: 3910 g 1 Minute 5 Minute [...] at bedtime. on an empty stomach) ??? vevkesy-Vx-zeud-FA 27 mg iron- 1 mg tablet, Take [...] mouth daily. on an empty stomach ??? xozvbkx-Gu-iwqs-FA 27 mg iron- 1 mg tablet, Take [...] Significant other: Spouse, living together Infant Assessment State: Quiet Infant Suck: Immature suck: [...] follow up plan: consult Joanna Gallego R.N., I.BJuliaC.LJuliaC. Hospital Course - Nataliia Longoria M.D. - 02/20/2022 6:44 PM CDT The patient was admitted to the [facility] for induction of labor. Her was [...] was uncomplicated. She received her care at [facility]. L&D Delivery Note - Krala Moraes M.D. - 02/20/2022 6:12 PM CDT OB Delivery Note 02/20/2022 Laurel Mcdonald 27 y.o. Harry, Hammad Barragan [[phone]] Delivery Providers Delivering clinician: Karla Moraes M.D. Provider Role Alix Oliver R.N. Delivery Nurse Steven Mcdonald R.N. Nursery Nurse Nataliia Longoria M.D. Primary Team Resident Surgeon(s) and Role: * Karla Moraes M.D. - Primary * Nataliia Longoria M.D. - Practice Director A carpenter's assistant actively participated and was necessary for one [...] Delivery Time: (Delivered) Hours: 12 Minutes: 24 [place] Sex: Male Weight: 3.91 kg 1 Minute [...] CNM LAB BLOOD ADD-ON Performing Organization Address City/[facility] Phon e Number [facility] - [address] [place], [place] [address] [facility] [address] (ABNORMAL) CBC without Differential (04/06/2022 2:04 PM CDT) [facility] Method Time Signature Hemoglobin 15.1 (H) 11.6 [...] CNM LAB BLOOD ADD-ON Performing Organization Address City/[facility] Phon e Number [facility] - [address] [place], [place] [address] [place] [address] (ABNORMAL) CBC without Differential (02/21/2022 5:51 AM CDT) [employer] Method Time Signature Hemoglobin 11.6 11.6 - [...] Laterality Blood (Blood, 02/21/2022 5:51 AM 02/22/20 22 6:02 Venous) CDT AM CDT Nataliia Longoria M.D. LAB BLOOD ADD-ON Performing Organization Address City/State/ZIP Code Phon e Number [facility] - [address] [place], [place] [address] [facility] [place] [address] [facility] [address] [facility] Tissue Donor Screen Test (02/20/2022 10:00 AM CDT) [facility] Method Time Signature HBsAg Screen Non-reacti [...] [facility] Donor Non-reactive 02/23/2022 9:45 AM CDT [facility] Comment: Failure to detect WNV RNA does not rule out the possibility of West Nile virus infection . This result should be evaluated in the context of th e individual's risk factors and clinical findings. Specimen Anatomical Collection Method Collection Time Receive d Time (Source) Location / / Volume Laterality Blood (Blood, 02/20/2022 10:00 02/20/2022 Venous) AM CDT 10:11 AM CDT [facility] DONOR TESTING AND [facility] - 02/23/2022 9:45 AM CDT Specimen Information: Specimen ID: [id number] Specimen Type: Blood Specimen Collection Start Date: 02/21/20 10:00 AM Specimen Received Date: 02/20/2022 10:11 AM Specimen ID: [id number] Specimen Type: Blood Specimen Collection Start Date: 02/21/20 10:00 AM Specimen Received Date: 02/20/2022 10:11 AM Specimen ID: [id number] Specimen Type: Blood Specimen Collection Start Date: 02/21/20 10:00 AM Specimen Received Date: 02/20/2022 10:11 AM Specimen ID: [id number] Specimen Type: Blood Specimen Collection Start Date: 02/21/20 10:00 AM Specimen Received Date: 02/20/2022 10:11 AM Emerald Nicholas M.D. LAB BLOOD NON ADD-ON Performing Organization Address City/State/ZIP Code Phon e Number [facility] DONOR [address] [facility] [place] [address] TESTING AND [place] [address] Donor Testing and [facility] Lab [address] [facility]. Type and Screen (with reflex Antibody ID) (02/19/2022 8:51 AM CDT) [facility] Method Time Signature ABORh O Pos [...] Organization Address City/State/ZIP Code Phon e Number [facility] - [address] [place], [place] [address] [facility] [place] [address] [facility] [address] documented in this encounter Visit Diagnoses Diagnosis 39 Weeks Gestation (HCC) - Prim sadie 39 Weeks Gestation (HCC) Care And Lactating Hemorrhage Delayed With Deliv carmina (HCC) Thyroiditis Amador's Difficulty Mom Colitis Crohn's (HCC) Asthma Mild Intermittent (HCC) Colitis Crohn's (HCC) Personal History Of Infectious And Zenon itic Disease (COVID-19) Thyroiditis Amador's 39 Weeks Gestation (HCC) documented in this encounter Admitting Diagnoses [...] mg (TYLENOL) 0112 (Given - Provider: Cassandra Modi, R.N.)0638 (Given - Provider: Cassandra Modi R.N.)1332 (Given - Provider: Rhina Rogel R.N.)1950 (Given - Provider: Irina Palafox R.N.) 0200 (Given - Provider: Irina Palafox R.N.)0829 (Given - Provider: Debbie Ron)1451 (Given - Provider: Rhina Jones R.N.)2123 (Given - Provider: Adela Cochran R.N.) 0341 (Given - Provider: Adela duarte R.N.)1003 (Given - Provider: Mateo Mcmillan)1530 (Due - Provider: Chelly Abdullahi, Pharm.D., R.Ph.) 1,000 mg, oral, Every 6 hours, First dos e on Sat02/20/22 at 1900, Post-, Administer acetaminophen at same time as ketorolac or ibuprofen. docusate sodium capsule 100 mg (COLACE) 0741 (Given - Provider: Saul Smiley)1950 (Given - Provider: Irina Palafox R.N.) 0829 (Given - Provider: Debbie Ron)2123 (Given - Provider: Adela Cochran R.N.) 1003 (Given - Provider: Mateo Mcmillan - Comment: patient sleeping) 100 mg, oral, 2 times daily, First dose on Sat02/21/22 at 0900, Post-, Do NOT crush or chew. ketorolac injection 15 mg (TORADOL) (COMPLETED) 010 ( Given - Provider: Cassandra Modi R.N.)0638 [...] 0829 (Medication Removed - Provider: Rhina Jones RChris) 0158 (Medication Applied - Provider: Jacob Cochran RChris)1444 (Medication Removed - Provider: Rhina Jones R.N.) 1 patch, transdermal, Administer over 12 Hours, Daily, First dose on Sat02/21/22 at 2030, Remove after 12 hours. mercaptopurine tablet 50 mg (PURINETHOL) 0106 (Given - Provider: Cassandra Modi R.N.)2015 (Given - Provider: Irina C Gustat, R.N. - Comment: pt usual administration time) [...] mg of calcium, oral, Every 2 hour NV N, indigestion, Starting on Sat02/20/22 at 2113, [...] (CORTAID) 0200 (Given - Provider: Adela Cochran RJuliaNJulia) topical, 2 times daily PRN, irritation, rash, Starting on Sat at 0108 ketorolac injection 15 mg (TORADOL) (COMPLETED) 1332 ( Given - Provider: Rhina Rogel RJuliaNJulia)1950 (Given - Provider: Irina Palafox R.N.) 0200 [...] (ZOFRAN-ODT) 0416 (Given - Provider: Adela Cochran R.N.) 4 mg, oral, Every 6 hours PRN, nausea, v omiting, Starting on Sat02/20/22 at 2113, Post-, First line When splitting ODT at bedside, handle with gloves and a pill splitter to prevent moisture contact. oxyCODONE IR tablet 10 mg (ROXICODONE)(Linked Group 1) 0828 (See Alternative - Provider: Debbie Ron)1451 (See Alternative - Provider: Rhina Jones, R.N.)2151 (See Alternative - Provider: Adela Cochran R.N.) 0155 (Not Given - Provider: Adela Cochran RJuliaN. - Reason: Other - Comment: see other oxy order)1444 (See Alternative - Provider: Rhina Jones RJuliaN.) 10 mg, oral, Every 4 hours PRN, severe p ain or score 7-10 of 10, Starting on Sat02/21/22 at 1713, Post-, Begin 24 hours after neuraxial long-acting opiate given or if no neuraxial long-acting opiate used start immediately post-operative. oxyCODONE IR tablet 10 mg (ROXICODONE)(Linked Group 2) 2153 (See Alternative - Provider: Adela Cochran R.N.) 0158 (Given - Provider: Adela Cochran R.N.)1003 (See Alternative - Provider: Mateo Deyanira) 10 mg, oral, Every 4 hours PRN, severe p ain or score 7-10 of 10, Starting on Sat02/22/22 at 1713, To be administered in the first 24 hours after intrathecal dose given. oxyCODONE IR tablet 5 mg (ROXICODONE)(Linked Group 1) 0828 (Given - Provider: Debbie Ron)1451 (Given - Provider: Rhina Jones RChris)2151 (Not Given - Provider: Adela Cochran R.N. - Reason: Other - Comment: See other [...] intravenous, As needed, nausea, vomiting, Starting on Tu02/20/22 at 2113, Post-, If symptoms continue 30 minutes after ondansetron and patient unable to take oral. Frequency: May repeat promethazine 6.25 mg IV every 10 minutes until nausea/vomiting relieved or until 25 mg given in a 4 hour period. promethazine tablet 12.5 mg (PHENERGAN) 12.5 mg, oral, As needed, nausea, vomiti ng, Starting on Tu02/20/22 at 2113, Post-, If symptoms continue 30 minutes after ondansetron. Frequency: May repeat in 30 minutes once if nausea and vomiti ng unrelieved not to exceed 25 mg given in a 4 hour period. simethicone chewable tablet 160 mg (MYLICON) 8 (Giv en - Provider: Irina Palafox RChris) 1451 (Given - Provider: Rhina Jones RChris) 160 mg, oral, Every 6 hours PRN, flatule nce, for abdominal gas, Starting on Sat02/20/22 at 2113, Post- witch mega pad 1 application (TUCK) 1227 (Given - Pr ovider: Saul Smiley) [...] or score 7-10 of 10, Starting on Sat02/22/22 at 1713
To be administered in the first 24 hours after intrathecal dose given.
documented in this encounter Additional Health Concerns Assessment Noted Time PHQ-9 Depression Total Score: 4 11/29/2021 10:43 AM CS T documented as of this encounter Care Teams Superintendent [employer]ing [employer] Relationship Specialty Start Date End Date Belkys Marshall, KARL, C.N.P., M.S. PCP - General Family Medicine 11/16/19 [address] [place] [address] documented as of this encounter
--- OUTSIDE RECORDS SUMMARY | 2022-08-31 12:33 | XMS_ITS | Encounter Summary ---
:1995 Author Organization [facility] Address [address] [place] [address] Care Team Providers Name Role Phone Belkys Marshall APRN, C.N.P., M.S. Primary Care Provider +1- [phone] Reason for Referral Outpatient (Routine) - Closed Specialty Diagnoses / Procedures Referred By Contact Refer red To Contact Diagnoses Lump In The Right Breast Unspecified Quadrant Angela Hassan M.D., Ph.D. [facility] Procedures BI Ultrasound Breast Focused Right [address] [place], [place] [address] Referral ID Status Reason Start Date Expiration Date Visits Requ ested Visits Authorized [id number] Closed 02/05/2022 02/05/2023 1 1 Reason for Visit Outpatient (Routine) - Closed Specialty Diagnoses / Procedures Referred By Contact Refer red To Contact Diagnoses Lump In The Right Breast Unspecified Quadrant Angela Hassan M.D., Ph.D. [facility] Procedures BI Ultrasound Breast Focused Right [address] [place] [address] Referral ID Status Reason Start Date Expiration Date Visits Requ ested Visits Authorized [id number] Closed 02/05/2022 02/05/2023 1 1 Encounter Details Date Type Department Care Team Description 02/12/2022 Hospital Encounter Department of Angela Hassan, Lump In The Right Radiology in MSidra., Ph.D. Breast Unspecified [place], [place] [address] Quadrant [address] [place] [address] [phone] Social History Tobacco Use Types Packs/Day Years [...] or relatives? How often do you attend jainism or 1 to 4 times per year 11/11 tenriism services? Do you belong to any clubs or Yes 11/23/2021 organizations such as jainism groups, unions, fraternal or athletic groups, or [...] have completed or the highest Connie, MEd, FLOOR CARE SPECIALIST, LORI) degree you have received? Sex [...] (HCC) Take 3 tablets by 0 022 [id number] 27 mouth daily. mg iron- 1 mg tablet documented as of this encounter Plan of Treatment Not on filedocumented as of this encounter Procedures Procedure Name Priority Date/Time Associated Comments Diagnosis BI ULTRASOUND RAD - Routine 02/12/2022 1:21 Lump In The Right Resul ts for this BREAST FOCUSED (most inpatients PM CDT Breast Unspecified pro cedure are in RIGHT and all Quadrant the results outpatients) section. documented in this encounter Results (ABNORMAL) BI Ultrasound Breast Focused Right (02/12/2022 1:21 PM CDT) Anatomical Region Laterality Modality Breast, Breast Imaging RST LOS, [facility] Specimen (Source) Anatomical Collection Method Collection Time Re ceived Time Location / / Volume Laterality 02/12/2022 1:55 PM CDT Addenda Addendum by Sandra Martínez M.D. on 02/13/2022 2:39 PM CDT ADDENDUM: ??AMENDMENT TO ADD COMPARISON EXAMS COMPARISON EXAMS: ??Outside ultrasounds dated 10/29/2013 and 12/30/2015 are submitted for comparison the [place] ultrasound of 02/12/2022. FINDINGS: ??Outside ultrasound demonstra adele a 1.9 x 2.0 x 1.0cm lobulated hypoechoic mass the right breast at the 9 o'clock position labeled zone 1 consistent with a fibroadenoma. This is slightly larger than the hypoechoic mass identifi ed on the [place] ultrasound of 02/12/2022. By report this fibroadenoma was excised. The current fi ndings could represent incomplete resection versus a new fibroadenoma in the same location. RECOMMENDATIONS: ??Short-Term Follow-Up 3 Month Recommendation short-term follow-up ultr asound in 3 months to confirm stability of this likely benign fibroadenoma. ASSESSMENT: ??BI-RADS: 3: Probably Benig n. Impressions 02/12/2022 2:17 PM CDT A probably-benign 1.7 cm mass corresponds to the palpable abnormality in the subareolar right breast, most likely a fibroadenoma or po ssible lactating adenoma. RECOMMENDATION: ??Comparison With Prior Exam(s) Recommend comparison with outside mammog deana/ultrasound. If outside imaging cannot be obtained, follow-up in 3 months with right breast ultrasound is recommended to evaluate stability of the probably-benign mass. ASSESSMENT: ??BI-RADS: 0 - Incomplete: N eed Prior Mammograms for Comparison. Narrative 02/12/2022 2:17 PM CDT EXAM: ??BI ULTRASOUND BREAST FOCUSED RIGHT INDICATION: ??Palpable right breast lump . 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 COMPARISON: ??No prior exams were availa ble for comparison. FINDINGS: Targeted ultrasound of the rig ht breast was performed in the area of the palpable abnormality, as indicated by the patient . Sonographic images obtained at the 9 o'clock position, 3 cm from the nipple demonstrate an elonga alicia hypoechoic mass or two adjacent masses measuring 1.7 x 0.8 x 1.6 cm along the undersurface of t he skin. There is associated increased vascularity, which is greatest along the periphery. Procedure Note Sandra Martínez M.D. - 02/12/2022For matting of this note might be different from the original. EXAM: BI ULTRASOUND BREAST FOCUSED RIGHT INDICATION: Palpable right breast lump. 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 COMPARISON: No prior exams were availabl e for comparison. FINDINGS: Targeted ultrasound of the rig ht breast was performed in the area of the palpable abnormality, as indicated by the patient . Sonographic images obtained at the 9 o'clock position, 3 cm from the nipple demonstrate an elonga alicia hypoechoic mass or two adjacent masses measuring 1.7 x 0.8 x 1.6 cm along the undersurface of t he skin. There is associated increased vascularity, which is greatest along the periphery. IMPRESSION: A probably-benign 1.7 cm mass correspond s to the palpable abnormality in the subareolar right breast, most likely a fibroadenoma or po ssible lactating adenoma. RECOMMENDATION: Comparison With Prior Ex am(s) Recommend comparison with outside mammog deana/ultrasound. If outside imaging cannot be obtained, follow-up in 3 months with right breast ultrasound is recommended to evaluate stability of the probably-benign mass. ASSESSMENT: BI-RADS: 0 - Incomplete: Anthony nunes Prior Mammograms for Comparison. Angela Hassan M.D., Ph.D. IMG BI PROCEDURES documented in this encounter Visit Diagnoses Diagnosis Lump In The Right Breast Unspecified Kerwin edgar documented in this encounter Additional Health Concerns Assessment Noted Time PHQ-9 Depression Total Score: 4 11/29/2021 10:43 AM CS T documented as of this encounter Care Teams Baker Chef Relationship Specialty Start Date End Date Belkys Marshall, KARL, C.N.P., M.S. PCP - General Family Medicine 11/16/19 [address] [place] [address] documented as of this encounter
--- OUTSIDE RECORDS SUMMARY | 2022-08-31 12:33 | XMS_ITS | Encounter Summary ---
:1995 Author Organization [facility] Address [address] [place] [address] Care Team Providers Name Role Phone Belkys Marshall APRN C.N.P., M.S. Primary Care Provider +1- [phone] Encounter Details Date Type Department Care Team Description 02/26/2022 Orders Only Pharmacy Prior Auth [facility]el Rowe [phone] Social History Tobacco Use Types Packs/Day Years [...] 1 to 4 times per year 11/11 adventist services? Do you belong to any clubs [...] completed or the highest Connie, MEd, DIRECTOR OF STUDENT FINANCIAL SERVICES, LORI) degree you have received? Sex Assigned at Date Recorded Female 07/18/2021 2:49 PM CDT documented as of this encounter Plan of Treatment Not on filedocumented as of this encounter Visit Diagnoses Not on filedocumented in this encounter Additional Health Concerns Assessment Noted Time PHQ-9 Depression Total Score: 4 11/29/2021 10:43 AM CS T documented as of this encounter Care Teams Community Service Representative Relationship Specialty Start Date End Date Belkys Marshall, KARL, C.N.P., M.S. PCP - General Family Medicine 11/16/19 [address] [place] [address] documented as of this encounter
--- OUTSIDE RECORDS SUMMARY | 2022-08-31 12:33 | XMS_ITS | Encounter Summary ---
:1995 Author Organization [facility] Address [address] [place] [address] Care Team Providers Name Role Phone Belkys Marshall APRN C.N.P., M.S. Primary Care Provider +1- [phone] Encounter Details Date Type Department Care Team Description 02/23/2022 Orders Only Department of Gayla Juares Breastfee ding Obstetrics and R.N., I.B.C.L.C. Difficulty Mom (Primary Gynecology in [phone] Dx) [place], [place] (Work) [address] [place] [phone] Social History Tobacco Use Types Packs/Day Years [...] or relatives? How often do you attend bahai or 1 to 4 times per year 11/11 tenriism services? Do you belong to any clubs or Yes 11/23/2021 organizations such as bahai groups, unions, fraternal or athletic groups, or [...] have completed or the highest Connie, MEd, LINING MACHINE TENDER, LORI) degree you have received? Sex Assigned at Date Recorded Female 07/18/2021 2:49 PM CDT documented as of this encounter Plan of Treatment Not on filedocumented as of this encounter Visit Diagnoses Diagnosis Difficulty Mom - Primary documented in this encounter Additional Health Concerns Assessment Noted Time PHQ-9 Depression Total Score: 4 11/29/2021 10:43 AM CS T documented as of this encounter Care Teams Direct Support Professional Home Health Relationship Specialty Start Date End Date Belkys Marshall, KARL, C.N.P., M.S. PCP - General Family Medicine 11/16/19 [address] [place] [address] documented as of this encounter
--- OUTSIDE RECORDS SUMMARY | 2022-08-31 12:33 | XMS_ITS | Encounter Summary ---
:1995 Author Organization [facility] Address [address] [place] [address] Care Team Providers Name Role Phone Belkys Marshall APRN C.N.P., M.S. Primary Care Provider +1- [phone] Encounter Details Date Type Department Care Team Description 02/26/2022 Clinical Communication [facility] Pharmacy Nataliya Toledo C.Ph.T. [address] [facility] [phone] [place], [place] (Work) [phone] Social History Tobacco Use Types Packs/Day Years [...] 1 to 4 times per year 11/11 anabaptist services? Do you belong to any clubs [...] have completed or the highest Connie, MEd, ASSISTANT BANQUET MANAGER, LORI) degree you have received? Sex Assigned at Date Recorded Female 07/18/2021 2:49 PM CDT documented as of this encounter Plan of Treatment Not on filedocumented as of this encounter Visit Diagnoses Not on filedocumented in this encounter Additional Health Concerns Assessment Noted Time PHQ-9 Depression Total Score: 4 11/29/2021 10:43 AM CS T documented as of this encounter Care Teams Bench Press Operator Relationship Specialty Start Date End Date Belkys Marshall APRN, C.N.P., M.S. PCP - General Family Medicine 11/16/19 [address] [place] [address] documented as of this encounter
--- OUTSIDE RECORDS SUMMARY | 2022-08-31 12:33 | XMS_ITS | Encounter Summary ---
:1995 Author Organization [facility] Address [address] [place] [address] Care Team Providers Name Role Phone Belkys Marshall APRN, C.N.P., M.S. Primary Care Provider +1- [phone] Reason for Visit Reason Comments Routine Visit Outpatient (Routine) - Closed Specialty Diagnoses / Procedures Referred By Contact Refer red To Contact [facility] Pedro BARAJAS., M.S.N. [address] [place] [phone] Referral ID Status Reason Start Date Expiration Date Visits Requ ested Visits Authorized [id number] Closed 01/18/2022 01/18/2023 1 1 Encounter Details Date Type Department Care Team Description 02/12/2022 Routine Department of Angela Hassan, Lump In T he Right Breast Unspecified Quadrant (Primary Dx); Obstetrics and M.D., Ph.D. Personal History Of Infectious And Zenon itic Disease (COVID-19); Gynecology in [address] [place] [address] Colitis Crohn's (HCC); [place], [place] High Risk [address] [facility] [address] [place], [place] [phone] (Work) [phone] Social History Tobacco Use Types Packs/Day Years [...] or relatives? How often do you attend sikh or 1 to 4 times per year 11/11 confucianist services? Do you belong to any clubs or Yes 11/23/2021 organizations such as sikh groups, unions, fraternal or athletic groups, or [...] have completed or the highest Connie, MEd, AFTER SCHOOL TUTOR, LORI) degree you have received? Sex Assigned at Date Recorded Female 07/18/2021 2:49 PM CDT documented as of this encounter Last Filed Vital Signs Vital Sign Reading Time Taken Comments Blood Pressure 116/74 02/12/2022 3:49 PM CDT Pulse 97 02/12/2022 3:49 PM CDT Temperature 36.9 ??C (98.4 ??F) 02/12/2022 3:49 PM CDT Respiratory Rate - - Oxygen Saturation 96% 02/12/2022 3:49 PM CDT Inhaled Oxygen Concentration - - Weight 80 kg (176 lb 5.9 oz) 02/12/2022 3:49 PM CDT Height - - Body Mass Index 28.79 07/29/2020 10:03 AM CDT documented in this encounter Progress Notes Angela Hassan M.D., Ph.D. - 02/12/2022 4:00 PM CDT SUBJECTIVE CHIEF COMPLAINT / REASON FOR VISIT Laurel Mcdonald is a 27yo G1 being seen today for return visit and BPP. Estimated Date of Delivery: 02/26/22; Gestational age: 38w0d. She also had breast US for R breast lump. She is generally doing well. Common discomforts of late . No bleeding or leaking, fetus active. OBJECTIVE FHR-A: 124 BPM BPP is 8/8, MVP is 4.73 ASSESSMENT / PLAN Impression/Report/Plan # IUP at??38-0/7??weeks # Asthma Mild Intermittent (HCC) # Colitis Crohn's (HCC)\ - Patient will contact GI to schedule colonoscopy PP and after - She has remained asymptomatic during . # Breast lump - US consistent with fibroadenoma versus lactating adenoma - Message sent to breast clinic colleague # COVID In - Test positive 11/07 - Patient scheduled for IOL 02/19 - Screening scheduled as she is more than 90 days from initial infection; scheduled for 02/18. # High risk # History of abnormal pap smear # Polyp gallbladder # History of hypothyroidism, resolved - refer to Dr. Levine's noted dated Sep 2019? Angela Hassan M.D., Ph.D. documented in this encounter Plan of Treatment Not on filedocumented as of this encounter Visit Diagnoses Diagnosis Lump In The Right Breast Unspecified Kerwin edgar - Primary Personal History Of Infectious And Zenon itic Disease (COVID-19) Colitis Crohn's (HCC) High Risk (HCC) documented in this encounter Additional Health Concerns Assessment Noted Time PHQ-9 Depression Total Score: 4 11/29/2021 10:43 AM CS T documented as of this encounter Care Teams Marble Mason Relationship Specialty Start Date End Date Belkys Marshall, KARL, C.N.P., M.S. PCP - General Family Medicine 11/16/19 [address] [place] [address] documented as of this encounter
--- OUTSIDE RECORDS SUMMARY | 2022-08-31 12:34 | XMS_ITS | Encounter Summary ---
:1995 Author Organization [facility] Address [address] [place] [address] Care Team Providers Name Role Phone Belkys Marshall APRN, C.NJuliaPJulia, M.S. Primary Care Provider +1- [phone] Reason for Referral Specialty Diagnoses / Procedures Referred By Contact Refer red To Contact Belkys Marshall APRN, C.N.P.[facility]ia [address] [place] [phone] Referral ID Status Reason Start Date Expiration Date Visits Requ ested Visits Authorized CLIPPER TENDER Encounter Details Date Type Department Care Team Description 12/16/2021 Orders Only RST PCP HLTH MDT Belkys Marshall APRN, C .N.P., M.S. [address] [place] [phone] (Wo rk) Social History Tobacco Use Types [...] 1 to 4 times per year 11/11 spiritism services? Do you belong to any clubs [...] have completed or the highest Connie, MEd, VARIOUS EXCEPTIONALITIES TEACHER, LORI) degree you have received? Sex Assigned at Date Recorded Female 07/18/2021 2:49 PM CDT documented as of this encounter Plan of Treatment Scheduled Referrals Name Type Priority Associated Order Schedule Diagnoses Covid immunization Outpatient Referral Routine Ex pected: office visit Booster 022 (Approximate), Expires: 12/16/2022 documented as of this encounter Visit Diagnoses Not on filedocumented in this encounter Additional Health Concerns Assessment Noted Time PHQ-9 Depression Total Score: 4 11/29/2021 10:43 AM CS T documented as of this encounter Care Teams Horticultural Nursery Assistant Relationship Specialty Start Date End Date Belkys Marshall, KARL, C.N.P., M.S. PCP - General Family Medicine 1/6/20 [address] [place] [address] documented as of this encounter
--- OUTSIDE RECORDS SUMMARY | 2022-08-31 12:34 | XMS_ITS | Encounter Summary ---
:1995 Author Organization [facility] Address [address] [place] [address] Care Team Providers Name Role Phone Belkys Marshall APRN C.N.P., M.S. Primary Care Provider +1- [phone] Reason for Visit Outpatient (Routine) - Closed Specialty Diagnoses / Procedures Referred By Contact Refer red To Contact Obstetrics and Angela Hassan M.D., [facility] Gynecology Ph.D. [address] [place] [phone] Referral ID Status Reason Start Date Expiration Date Visits Requ ested Visits Authorized [id number] Closed 11/08/2021 11/08/2022 1 1 Encounter Details Date Type Department Care Team Description 11/24/2021 Virtual Visit Department of [place], [facility] Hi story Of Infectious And Parasitic Disease (COVID-19) (Primary Dx); Obstetrics and Kasey Yates 26 Weeks Gestation Gynecology in [address] [place] [address] [place] [address] [place], [place] [phone] (Work) [phone] Social History Tobacco Use Types Packs/Day Years [...] 1 to 4 times per year 11/11 anabaptism services? Do you belong to any clubs [...] have completed or the highest Connie, MEd, HARDWARE DESIGNER, LORI) degree you have received? Sex Assigned at Date Recorded Female 07/18/2021 2:49 PM CDT documented as of this encounter Consult Notes Regine Cortez M.D. - 11/24/2021 1:30 PM CST This was a non nckt-ov-nzop encounter conducted via telephone by Regine Cortez M.D. in [facility] to the patient in patient home. SUBJECTIVE CHIEF COMPLAINT COVID-19 infection in HISTORY OF PRESENT ILLNESS OB History Para Term AB Living 1 0 0 0 0 0 SAB IAB Ectopic Molar Multiple Live Births 0 0 0 0 0 0 # Outcome Date GA Lbr William/2nd Weight Sex Delivery Anes PTL Lv 1 Current . Laurel Mcdonald is a 26 y.o. at 26w4d gestation. Estimated Date of Delivery: 02/26/22 is based on her last menstrual period and first trimester 9w4d dating ultrasound. Patient was referred by Angela Hassan M.D., Ph.D. for further evaluation and management of complicated by the following issues: 1. History: COVID-19 infection in (third trimester approx 24w gestation) Diagnosis:COVID PCR 11/07/2021. Current status: Recovered. Currently still reports fatigue. Vaccination status: Completed 2 doses Pfizer vaccine. Overdue for booster. Monoclonal antibody infusion: Yes, on 11/09/2021. She has been doing well otherwise, with no obstetric complaints other than normal discomforts of . She reports good movement. She denies uterine contractions, leakage of fluid or vaginal bleeding. I have reviewed and updated the following as indicated: past medical history, past surgical history,social history, family medical history, medications, allergies, and problem list. OBJECTIVE LMP 05/22/2021 (Exact Date) General: Alert and comfortable. ASSESSMENT / PLAN History: COVID-19 infection in (third trimester approx 24w gestation) Intrauterine at 26w4d gestation Crohn's disease I had the pleasure of talking to Ms. Laurel Mcdonald in consultation today and our conversationfocused mainly on COVID-19 infection in . RECOMMENDATIONS COVID-19 infection in (second trimester approx 21w gestation) 1. Risk counselling: There are increased risks in women with COVID-19 infection, especially in the later gestation, being more likely to be hospitalized and are at increased risk for intensive care unit admission and mechanical ventilation than non- women. This leads to increased risk of medically indicated delivery. There is no convincing evidence to date of vertical jgsqtx-to-cgsyq transmission but much remains unknown regarding watermaster outcomes of COVID-19 infection in . Recent data demonstrates an increased risk of growth restriction and stillbirth. Reassuringly, her disease was mild and there was no evidence of hypoxia or respiratory compromise. Anticipate favorable outcomes with as related to history of COVID infection in . However, continued close surveillance is prudent. 2. Growth surveillance: Routine screening for growth restriction via serial fundal height examinations during regular visits. Repeat growth ultrasound every 4 weeks starting at 28w in the third trimester to evaluate interval growth (suggest 28w, 32w and 36w gestation, sooner if clinically indicated). 3. surveillance: Initiation of surveillance for standard obstetric indications. 4. Mode of delivery: Mode of delivery will be based on standard obstetric indications. 5. Timing of delivery: Timing of delivery will be based on standard obstetric indications. Consider risk reducing elective induction of labor anytime once at 39w0d gestation. [place] not to prolong past 41w gestation. 6. Other considerations: Strongly recommend obtaining COVID booster vaccination once she is a candidate. Risk of re-infection was discussed, although hopefully, she has continued immunity through . Send placental for histopathology examination. Patient verbalized understanding our discussion. All her questions were answered and her concerns were addressed. My contact information was given. Patient was encouraged to contact me again without hesitation if she has any additional questions or concerns. A total of 15 minutes was spent in care of this patient, majority which was spent in direct counseling. Regine Cortez M.D. ONAL BUSINESS MANAGER documented in this encounter Plan of Treatment Not on filedocumented as of this encounter Visit Diagnoses Diagnosis Personal History Of Infectious And Zenon itic Disease (COVID-19) - Primary 26 Weeks Gestation (HCC) documented in this encounter Additional Health Concerns Assessment Noted Time PHQ-9 Depression Total Score: 1 08/01/2021 1:42 PM CDT documented as of this encounter Care Teams Invertebrate Paleontologist Relationship Specialty Start Date End Date Belkys Marshall APRN, C.N.P., M.S. PCP - General Family Medicine 11/16/[address] [place] [address] documented as of this encounter
--- OUTSIDE RECORDS SUMMARY | 2022-08-31 12:34 | XMS_ITS | Encounter Summary ---
:1995 Author Organization [facility] Address [address] [place] [address] Care Team Providers Name Role Phone Belkys Marshall APRN, C.N.PJulia, M.S. Primary Care Provider +1- [phone] Encounter Details Date Type Department Care Team Description 11/09/2021 Orders Only [facility] Belkys Gardner APRN, [address] [facility] C.N.P., [place] [phone] [place] [address] [place] [phone] (Wo rk) Social History Tobacco Use Types [...] or relatives? How often do you attend jew or 1 to 4 times per year 11/11 jain services? Do you belong to any clubs or Yes 11/23/2021 organizations such as jew groups, unions, fraternal or athletic groups, or [...] What is the highest level of school Bachelor's degree (e.g., BA, AB, 09/27/2019 you have completed or the highest BS) degree you have received? Sex Assigned at Date Recorded Female 07/18/2021 2:49 PM CDT documented as of this encounter Plan of Treatment Not on filedocumented as of this encounter Visit Diagnoses Not on filedocumented in this encounter Additional Health Concerns Infection Onset Date Last Indicated Resolved Time [id number]: 11/21. Pt meets 11/06/2021 11/08/2021 0 11/21/2021 9:54 AM AUDIO VISUAL TECH criteria for removal of COVID19 infection . MJW Assessment Noted Time PHQ-9 Depression Total Score: 1 08/01/2021 1:42 PM CDT documented as of this encounter Care Teams Deep Fryer Assembler Relationship Specialty Start Date End Date Belkys Marshall APRN, C.N.P., M.S. PCP - General Family Medicine 11/16/19 [address] [place] [address] documented as of this encounter
--- OUTSIDE RECORDS SUMMARY | 2022-08-31 12:34 | XMS_ITS | Encounter Summary ---
:1995 Author Organization [facility] Address [address] [place] [address] Care Team Providers Name Role Phone Belkys Marshall APRN C.N.P., M.S. Primary Care Provider [phone]- [phone] Reason for Visit Reason Comments Outpatient Infusion Episode Based Medications (Routine) - Closed Specialty Diagnoses / Procedures Referred By Contact Refer red To Contact Diagnoses Colitis Crohn's (HCC) [facility] Procedures KRIS Mcnamara M.D., M.P.H. [address] [place] [phone] Referral ID Status Reason Start Date Expiration Date Visits Requ ested Visits Authorized [id number] Closed 11/08/2021 11/08/2022 1 1 Encounter Details Date Type Department Care Team Description 11/09/2021 Infusion Department of Infusion Emma, Colitis Crohn's (HCC) (Primary Dx); Therapy in [place], Reji Mcnamara M.D., COVI D-19 Infection [place] [facility] [address] [place] [phone] Social History Tobacco Use Types Packs/Day Years [...] or relatives? How often do you attend mosque or 1 to 4 times per year 11/11 quaker services? Do you belong to any clubs or Yes 11/23/2021 organizations such as mosque groups, unions, fraternal or athletic groups, or [...] Sign Reading Time Taken Comments Blood Pressure 111/62 11/09/2021 3:43 PM BR[employer] W[employer] INSTRUMENTS TUBE BENDER Pulse 88 11/09/2021 3:43 PM [employer] TUBE BENDER Temperature 36.6 ??C (97.9 ??F) 11/09/2021 3:43 PM [employer]UM[employer] TUBE BENDER Respiratory Rate 18 11/09/2021 3:43 PM [employer]UM[employer] TUBE BENDER Oxygen Saturation 97% 11/09/2021 3:43 PM [employer]UM[employer] TUBE BENDER Inhaled Oxygen Concentration - - Weight - - Height - - Body Mass Index - - documented in this encounter Plan of Treatment Not on filedocumented as of this encounter Visit Diagnoses Diagnosis Colitis Crohn's (HCC) - Primary COVID-19 Infection documented in this encounter Administered Medications Inactive Administered Medications - up to 3 most recent administrations Medication Order MAR Action Action Date Dose Rate Site NaCl 0.9% infusion New Bag 11/09/2021 4:15 PM [employer] TUBE BENDER 160 mL/hr 160 mL/hr 10-250 mL/hr, intravenous, As needed, Post Medications (Hazardous/Low Fluid Volume), Starting on Pura 11/09/21 at 1541, Infuse at the same rate as the medication until tubing cleared of medication, then discard. sodium chloride 0.9 % injection 3 mL Given 11/09/2021 4:28 PM [employer] IN[employer]UM[employer] TUBE BENDER 3 mL 3 mL, intra-catheter, As needed, line care, Starting on Pura 11/09/21 at 1541, Prior to and following infusion and between multiple consecutive infusions. Given 11/09/2021 3:52 PM [employer] INSTRUM[employer] TUBE BENDER 3 mL sotrovimab IVPB in NaCl 0.9% 58 mL New Bag 11/09/2021 500 mg 160 mL/hr intravenous, Administer over 30 Minutes, Once, 3:52 PM [employer] TUBE BENDER On Pura 11/09/21 at 1545, For 1 dose, Patient/caregiver factsheet: https://www.fda.gov/media/756906/download *Refrigerate* Do not shake. Prior to the infusion, gently rock the infusion bag back and forth by hand 3 to 5 times. Do not invert the infusion bag. Avoid forming air bubbles. Nursing to attach and prime infusion set with in-line or add-on 0.2 micron polyethersulfone (PES) filter. Flush with NaCl 0.9% after infusion., Authorizing Prescriber Service: Lottie, Criteria: Adults and pediatric patients (age 12-17 years and weighing at least 40 kg), Indication of use: Outpatient or observation patient: Mild to moderate COVID-19 treatment, AND meeting at least one of the following: documented in this encounter Additional Health Concerns Infection Onset Date Last Indicated Resolved Time [id number]: 11/21. Pt meets 11/06/2021 11/08/2021 0 11/21/2021 9:54 AM [employer] TUBE BENDER criteria for removal of COVID19 infection . MJW Assessment Noted Time PHQ-9 Depression Total Score: 1 08/01/2021 1:42 PM CDT documented as of this encounter Care Teams Evaporative Cooler Installer Relationship Specialty Start Date End Date Belkys Marshall APRN, C.N.P., M.S. PCP - General Family Medicine 11/16/19 [address] [place] [address] documented as of this encounter
--- OUTSIDE RECORDS SUMMARY | 2022-08-31 12:34 | XMS_ITS | Encounter Summary ---
:1995 Author Organization [facility] Address [address] [place] [address] Care Team Providers Name Role Phone Belkys Marshall APRN, C.NVira., M.S. Primary Care Provider +1- [phone] Reason for Visit Reason Comments Med Refill Encounter Details Date Type Department Care Team Description 12/22/2021 Refill Division of Gastroenterology in [facility] Refill [place], [place] Magdalena Martinez.B.S. [address] [place] [address] [place] [phone] [place], [place] [phone] (Wo rk) Social History Tobacco Use Types [...] 1 to 4 times per year 11/11 buddhism services? Do you belong to any clubs [...] have completed or the highest Connie, MEd, ELECTROLYSIS OPERATOR, LORI) degree you have received? Sex Assigned at Date Recorded Female 07/18/2021 2:49 PM CDT documented as of this encounter Plan of Treatment Not on filedocumented as of this encounter Visit Diagnoses Not on filedocumented in this encounter Additional Health Concerns Assessment Noted Time PHQ-9 Depression Total Score: 4 11/29/2021 10:43 AM CS T documented as of this encounter Care Teams Historiography Professor Relationship Specialty Start Date End Date Belkys Marshall APRN, C.N.P., M.S. PCP - General Family Medicine 11/16/19 [address] [place] [address] documented as of this encounter
--- OUTSIDE RECORDS SUMMARY | 2022-08-31 12:34 | XMS_ITS | Encounter Summary ---
:1995 Author Organization [facility] Address [address] [place] [address] Care Team Providers Name Role Phone Belkys Masrhall APRN C.N.P., M.S. Primary Care Provider +1- [phone] Reason for Visit Reason Comments Communication Encounter Details Date Type Department Care Team Description 02/08/2022 Clinical Communication Department of Angela Hassan Com munication Obstetrics and Kasey, Ph.D. Gynecology in [address] [place] [address] [place] [address] [place], [place] [phone] (Work) [phone] Social History Tobacco Use Types Packs/Day Years [...] or relatives? How often do you attend yazidism or 1 to 4 times per year 11/11 jain services? Do you belong to any clubs or Yes 11/23/2021 organizations such as yazidism groups, unions, fraternal or athletic groups, or [...] have completed or the highest Connie, MEd, MARKETING OPERATIONS CONSULTANT, LORI) degree you have received? Sex Assigned at Date Recorded Female 07/18/2021 2:49 PM CDT documented as of this encounter Miscellaneous Notes Telephone Encounter - Yari Irene M.S.N., R.N. - 02/08/2022 2:33 PM CDT SUBJECTIVE CHIEF COMPLAINT / REASON FOR CALL Communication ASSESSMENT Called patient regarding concerns and image sent via Portal. Image reviewed per Dr. Todd Hassan. Patientstates she has cramps which are just there, upon questioning, patient experienced cramping last evening which resolved and are back again this afternoon. No change in cramping, unable to time; patient able to do normal activities of daily living. Able to maintain hydration, eating normally, deniesUTI symptoms, vaginal itching, bleeding or leaking of fluid . Endorses positive movement. Discussed Musa-Awan contractions versus labor. Reviewed symptoms of when to call including leaking offluid, vaginal bleeding, decreased movement, contractions becoming longer, stronger, closer. PLAN Continue with normal activities of daily living, continue to monitor. Disposition/Recommendation: recommended continue engagement in self-management activities. Information/Education: patient/caller able to teach back. Caller agreeable to plan of care: yes. The following references were used: nursing clinical judgement and provider Dr. Todd Hassan. Telephone Encounter - Nereida Martin - 02/08/2022 12:18 PM CDT Pt calling in to speak with nursing. Pt reports thick yellow discharge. Pt reports + FM and no loss of fluids. Please reach out to pt. Thank you. documented in this encounter Plan of Treatment Not on filedocumented as of this encounter Visit Diagnoses Not on filedocumented in this encounter Additional Health Concerns Assessment Noted Time PHQ-9 Depression Total Score: 4 11/29/2021 10:43 AM CS T documented as of this encounter Care Teams Pet Sitting Relationship Specialty Start Date End Date Belkys Marshall APRN, C.N.P., M.S. PCP - General Family Medicine 11/16/19 [address] [place] [address] documented as of this encounter
--- OUTSIDE RECORDS SUMMARY | 2022-08-31 12:34 | XMS_ITS | Encounter Summary ---
:1995 Author Organization [facility] Address [address] [place] [address] Care Team Providers Name Role Phone Belkys Marhsall APRN, C.N.Mame., M.S. Primary Care Provider +1- [phone] Reason for Referral Outpatient (Routine) - Closed Specialty Diagnoses / Procedures Referred By Contact Refer red To Contact Angela Slaughter M.D., [facility] adarsh Gynecology Ph.D. [address] [place] [phone] Referral ID Status Reason Start Date Expiration Date Visits Requ ested Visits Authorized [id number] Closed 11/29/2021 11/29/2022 1 1 Scheduling Instructions Complex care ACTORY MIXER Reason for Visit Reason Comments Routine Visit Outpatient (Routine) - Closed Specialty Diagnoses / Procedures Referred By Contact Refer red To Contact Angela Slaughter M.D., [facility] Gynecology Ph.D. [address] [place] [phone] Referral ID Status Reason Start Date Expiration Date Visits Requ ested Visits Authorized [id number] Closed 10/03/2021 10/03/2022 1 1 Encounter Details Date Type Department Care Team Description 11/29/2021 Routine Department of Angela Hassan, High Risk (Primary Dx); Obstetrics and MSidra., Ph.D. Personal History Of Infectious And Zenon itic Disease (COVID-19); Gynecology in [address] [place] [address] Colitis Crohn's (HCC); [place], [place] Asthma Mild Intermittent (HC C) 200 [facility] [address] [place], [place] [phone] (Work) [phone] Social History Tobacco Use Types Packs/Day Years [...] or relatives? How often do you attend confucianism or 1 to 4 times per year 11/11 baptism services? Do you belong to any clubs or Yes 11/23/2021 organizations such as confucianism groups, unions, fraternal or athletic groups, or [...] have completed or the highest Connie, MEd, METAL BONDING PRESS OPERATOR, LORI) degree you have received? Sex Assigned at Date Recorded Female 07/18/2021 2:49 PM CDT documented as of this encounter Last Filed Vital Signs Vital Sign Reading Time Taken Comments Blood Pressure 104/67 11/29/2021 11:11 AM REFRACTORY MIXER Pulse 90 11/29/2021 11:11 AM REFRACTORY MIXER Temperature 37.1 ??C (98.7 ??F) 11/29/2021 11:11 AM REFRACTORY MIXER Respiratory Rate - - Oxygen Saturation 97% 11/29/2021 11:11 AM REFRACTORY MIXER Inhaled Oxygen Concentration - - Weight 74 kg (163 lb 2.3 oz) 11/29/2021 10:43 AM REFRACTORY MIXER Height - - Body Mass Index 26.63 07/29/2020 10:03 AM CDT documented in this encounter Progress Notes Angela Hassan M.D., Ph.D. - 11/29/2021 11:00 AM CST The patient is here today for labs and return visit. She continues to have fatigue after COVID. Fetus active, no leaking or bleeding. No GI concerns, we did discuss planning for colonoscopy PP. Briefly discussed IOL. Plan for repeat growth on 12/19, surveillance beginning at 37 weeks and plan for delivery at39-40 weeks given COVID in . Precautions given. rosamaria 11/29/2021 Impression/Report/Plan # IUP at 27-2/7 weeks # Asthma Mild Intermittent (HCC) # Colitis Crohn's (HCC) # COVID In - Test positive 11/07 # High risk # History of abnormal pap smear # Polyp gallbladder # History of hypothyroidism, resolved - refer to Dr. Levine's noted dated Sep 2019?? ACTORY MIXER documented in this encounter Plan of Treatment Scheduled Referrals Name Type Priority Associated Order Schedule Diagnoses Obstetrics and Outpatient Referral Routine Expect ed: Gynecology office 01/17/2022 , visit (clinic) Expires: 02/27/2023 documented as of this encounter Visit Diagnoses Diagnosis High Risk (HCC) - Primary Personal History Of Infectious And Zenon itic Disease (COVID-19) Colitis Crohn's (HCC) Asthma Mild Intermittent (HCC) documented in this encounter Additional Health Concerns Assessment Noted Time PHQ-9 Depression Total Score: 4 11/29/2021 10:43 AM CS T documented as of this encounter Care Teams Steel Finisher Relationship Specialty Start Date End Date Belkys Marshall APRN, C.N.P., M.S. PCP - General Family Medicine 11/16/19 [address] [place] [address] documented as of this encounter
--- OUTSIDE RECORDS SUMMARY | 2022-08-31 12:34 | XMS_ITS | Encounter Summary ---
:1995 Author Organization [facility] Address [address] [place] [address] Care Team Providers Name Role Phone Belkys Marshall APRN, C.N.P., M.S. Primary Care Provider +1- [phone] Reason for Referral Specialty Diagnoses / Procedures Referred By Contact Refer red To Contact Shiela Barraza APRN, C.NTawanna, [facility] Yelena M.S.N. [address] [place] [phone] Referral ID Status Reason Start Date Expiration Date Visits Requ ested Visits Authorized Scheduling Instructions Schedule in ATU utpatient (Routine) - Closed Specialty Diagnoses / Procedures Referred By Contact Refer red To Contact Obstetrics and Shiela Barraza [facility] Gynecology Laverne BARAJAS, M.S.N. [address] [place] [phone] Referral ID Status Reason Start Date Expiration Date Visits Requ ested Visits Authorized [id number] Closed 01/18/2022 01/18/2023 1 1 SPINNER SOUSAPHONES Reason for Visit Reason Comments Routine Visit Outpatient (Routine) - Closed Specialty Diagnoses / Procedures Referred By Contact Refer red To Contact Obstetrics and Angela Hassan M.D., [facility] adarsh Gynecology Ph.D. [address] [place] [address] Referral ID Status Reason Start Date Expiration Date Visits Requ ested Visits Authorized [id number] Closed 11/29/2021 11/29/2022 1 1 Encounter Details Date Type Department Care Team Description 01/18/2022 Routine Department of Shiela Barraza [facility] (Primary Dx); Obstetrics and Laverne BARAJAS, Encounter Fo r Screening For Other Viral Diseases (COVID-19) Gynecology in [facility] [place], [place] [address] [facility] [address] [place] [phone] Social History Tobacco Use Types Packs/Day Years [...] or relatives? How often do you attend restoration or 1 to 4 times per year 11/11 presybeterian services? Do you belong to any clubs or Yes 11/23/2021 organizations such as restoration groups, unions, fraternal or athletic groups, or [...] have completed or the highest Connie, MEd, MEDICAID BILLING CLERK, LORI) degree you have received? Sex Assigned at Date Recorded Female 07/18/2021 2:49 PM CDT documented as of this encounter Last Filed Vital Signs Vital Sign Reading Time Taken Comments Blood Pressure - - Pulse 92 01/18/2022 8:39 AM BELL SPINNER SOUSAPHONES Temperature 36.6 ??C (97.9 ??F) 01/18/2022 8:39 AM BELL SPINNER SOUSAPHONES Respiratory Rate - - Oxygen Saturation 98% 01/18/2022 8:39 AM BELL SPINNER SOUSAPHONES Inhaled Oxygen Concentration - - Weight 76.8 kg (169 lb 5 oz) 01/18/2022 8:39 AM BELL SPINNER SOUSAPHONES Height - - Body Mass Index 27.64 07/29/2020 10:03 AM CDT documented in this encounter Progress Notes Shiela Barraza, KARL, C.N.P., M.S.N. - 01/18/2022 9:00 AM CST SUBJECTIVE CHIEF COMPLAINT / REASON FOR VISIT Laurel Caraballo is a 26 y.o. . Gestational age is 34w3d. She returns today for routine visit. She was evaluated in the ED a week ago for concern of lower extremity DVT. There was concern for DVT on outside imaging, DVT not seen on ultrasound evaluation at [place] ED. OB was consulted and decision was made to defer anticoagulation based on second ultrasound negative for DVT. Since evaluation the patient reports resolution of calf tenderness, pain and redness. She denies chest pain and abdominal pain, no shortness of breath. No ongoing concerns. No obstetric concerns. Active fetus. Reports continuation of bilateral ear tenderness and pain that is improving. She has remained afebrile. She is currently being treated by her PCP with a 2 week course of amoxicillin. She notes improvement in symptoms but not resolution. Asthma stable. Crohn's stable. OBJECTIVE VITAL SIGNS Vitals: 01/18/22 0839 Pulse: 92 Temp: 36.6 ??C SpO2: 98% DIAGNOSTICS Ultrasound: Gilbert in Cephalic presentation. Composite biometry large for gestational age. EFW [id number] grams at the 97% for gestational age. ?? Biophysical Profile Gilbert Gilbert intrauterine in cephalic presentation. BPP score is 8/ 8. The maximum vertical pocket is 5.58 cm. General: well appearing, no acute distress. ENT: Mild tenderness on exam, canal without redness, tympanic membrane visualized without concern for bulging or discharge. Heart: RRR Lungs: CTABL Lower extremities: Without edema, no redness or tenderness or pain.. Appear equal in size bilaterally. ASSESSMENT / PLAN IUP at 34w3d Covid in Otitis media, on antibiotics Crohn's Asthma Recommended follow-up with PCP if with no improvement, currently on day 7 of 14 day antibiotic regimen. Reviewed signs and symptoms of DVT/PE and having a low threshold for seeking evaluation should she develop calf pain, tenderness, redness, edema, chest pain, shortness of breath or abdominal pain. IOL scheduled for 02/12 at 39 weeks. Shiela Barraza APRN, C.NVira., M.S.N. SPINNER SOUSAPHONES documented in this encounter Plan of Treatment Scheduled Referrals Name Type Priority Associated Order Schedule Diagnoses Obstetrics and Outpatient Referral Routine Expect ed: Gynecology office 02/12/2022 , visit (clinic) Expires: 04/20/2023 Obstetrics and Outpatient Referral Routine High Risk Expected: Gynecology - MFM 01/29/2022, education visit Expires: (clinic) 04/20/2023 documented as of this encounter Results SARS CoV-2 RNA, PCR, Varies Asymptomatic (02/18/2022 9:01 AM CDT) [facility] Method Time Signature SARS CoV-2 Swab, 02/18/2022 DTL RNA, PCR, Nasopharynx 1:34 PM CDT Source SARS CoV-2 Undetected Undetected 02/18/2022 DTL RNA, PCR 1:34 PM CDT Comment: SARS-CoV-2 RNA absent. This result does not rule out COVID-19 in the patient, as the sensitivity of the test depends o n the timing of the specimen collection and quality of the specimen. Result should be correlated with patient's history and clinical presentat ion. ----ADDITIONAL INFORMATION---- This RT-PCR test has received Emergency Use Authorization (EUA) by the U.S. Food and Drug Administration an d is used per attending anesthesiologist's instructions. Performance characteristics were verified by [facility] in a manner consistent with CLIA requirements. Visit the CDC website: https://www.cdc.g ov/coronavirus/ for the most recent guidelines on Coron avirus testing. Fact Sheet for Healthcare Providers: https://www.fda.gov/media/018970/downloa d Fact Sheet for Patients: https://www.fda.gov/media/394189/downloa d Specimen Anatomical Collection Method Collection Time Receive d Time (Source) Location / / Volume Laterality Varies 02/18/2022 9:01 AM 9:41 (Nasopharynx) CDT AM CDT Angela Hassan M.D., Ph.D. LAB MICROBIOLOGY - GENERAL O RDERABLES Performing Organization Address City/State/ZIP Code Phon e Number [facility] - [address] [place] [phone] [facility] [place] [address] Laboratories-[facility] 200 [facility] US OB Limited and BPP Without Non [...] AND BPP WITHOUT NON STRESS Exam Site: [facility] OB 3 Plurality: 1 LMP: 05/21/2021 GA By LMP: ??38w1d GA Method: LATONYA GA: 38w0d LATONYA: 02/26/2022 OBHx: [G:(1)] ?F Trm:() Pre:() C-Sec:() Ab-I:( ) Ab-S:() Ect:() Multi:() Angella:() INDICATIONS FOR SONOGRAPHY Maternal Crohn's disease, biophysical pr ofile IMPRESSION 1. Gilbert in cephalic prese ntation. 2. Normal BPP (06/18). OBSERVATIONS Observations FHR: ??124 bpm Presentation: ??Cephalic Amniotic Fluid Fluid Volume: ??Normal MVP: ??4.73 cm Biophysical Profile Variables Score: 2=Normal, 0=Abnormal. ?? Movements: 2 ??Breathing Movements: 2 ?? Tone: 2 ??Amniotic Fluid Volume: 2 Total Score = 8/8 COMMENTS Transabdominal ultrasound was performed. Biophysical Profile Gilbert Gilbert intrauterine in ceph alic presentation. BPP score is 8/ 8. The maximum vertical pocket is 4.73 cm. Preliminary Read by Rae Epstein ( Kris), R.D.M.S. on 02/12/2022 3:31:21 PM. Safety Patrol Officer: ??Rae Epstein (Kris) , R.D.M.S. Thank You For This Referral Procedure Note Silvia Acosta M.D. - 02/12/2022Forma tting of this note might be different from the original. LAUREL CARABALLO Assessment Exam, 02/12/2022 EXAM INFORMATION Patient Name: LAUREL CARABALLO : 1995 Age: 27 yrs Sex: Female Ref Phys: SHIELA BARRAZA Exam Date: 02/12/2022 Procedure: US OB LIMITED AND BPP WITHOUT NON STRESS Exam Site: [facility] OB 3 Plurality: 1 LMP: 05/21/2021GA By LMP: 38w1d GA Method: LATONYA GA: 38w0d LATONYA: 02/26/2022 OBHx: [G:(1)] F Trm:() Pre:() C-Sec:() Ab-I:() Ab-S:( ) Ect:() Multi:() Angella:() INDICATIONS FOR SONOGRAPHY Maternal Crohn's disease, biophysical pr ofile IMPRESSION 1. Gilbert in cephalic prese ntation. 2. Normal BPP (06/18). OBSERVATIONS Observations FHR: 124 bpm Presentation: Cephalic Amniotic Fluid Fluid Volume: Normal MVP: 4.73 cm Biophysical Profile Variables Score: 2=Normal, 0=Abnormal. Movements: 2 Breathing Movements:2 Tone: 2 Amniotic Fluid Volume: 2 Total Score = 8/8 COMMENTS Transabdominal ultrasound was performed. Biophysical Profile Gilbert Gilbert intrauterine in ceph alic presentation. BPP score is 8/ 8. The maximum vertical pocket is 4.73 cm. Preliminary Read by Rae Epstein ( Kris), R.Jody.M.S. on 02/12/2022 3:31:21 PM. Safety Patrol Officer: Rae Epstein R.D. (Kris)M.S. Thank You For This Referral Shiela Barraza APRN, C.N.P., M.S.N. IMG OB US PROCEDURE S US OB Biophysical Profile without Non-Stress Gilbert (01/30/2022 3:01 PM CDT) Anatomical Region Laterality Modality Body, Ultrasound OB RST LOS, Ultrasound ARZ LOS N/A Ultrasound Specimen (Source) Anatomical Location Collection Method / Collectio n Time Received Time / Laterality Volume Narrative 01/30/2022 5:18 PM CDT LAUREL CARABALLOICA Assessment Exam, 01/30/2022 EXAM INFORMATION Patient Name: ??LAUREL CARABALLO : ??1995 Age: ??26 yrs Sex: ??Female Ref Phys: ??SHIELA BARRAZA Exam Date: 01/30/2022 Procedure: US OB BIOPHYSICAL PROFILE WIT HOUT NON-STRESS GILBERT Exam Site: [facility] OB #1 Plurality: 1 LMP: 05/21/2021 GA By LMP: ??36w2d GA Method: LATONYA GA: 36w1d LATONYA: 02/26/2022 OBHx: [G:(1)] ?F Trm:() Pre:() C-Sec:() Ab-I:( ) Ab-S:() Ect:() Multi:() Angella:() INDICATIONS FOR SONOGRAPHY History COVID infection in IMPRESSION Biophysical Profile Fetus: Live gilbert intrauterine pregn glynn. Presentation: Cephalic. Amniotic fluid volume: Normal (MVP 6.04 cm). Biophysical profile: 06/18. Conclusion: Live gilbert intrauterine in cephalic presentation. Normal amniotic fluid volume (MVP cm). BPP 06/18. ?? OBSERVATIONS Observations FHR: ??127 bpm Presentation: ??Cephalic Placental Location: ??Anterior Amniotic Fluid Fluid Volume: ??Normal MVP: ??6.04 cm Biophysical Profile Variables Score: 2=Normal, 0=Abnormal. ?? Movements: 2 ??Breathing Movements: 2 ?? Tone: 2 ??Amniotic Fluid Volume: 2 Total Score = 06/18 Preliminary Read by Mariza Gallegos R.D.MJuliaSJulia on 01/30/2022 2:59:41 PM. Safety Patrol Officer: ??Mariza Gallegos R.D.M .S. Thank You For This Referral Procedure Note Regine Cortez M.D. - 01/31/20 LAUREL CARABALLO Assessment Exam, 01/30/2022 EXAM INFORMATION Patient Name: LAUREL CARABALLO : 1995 Age: 26 yrs Sex: Female Ref Phys: SHIELA Maddox NASRINBeth Exam Date: 01/30/2022 Procedure: US OB BIOPHYSICAL PROFILE WIT HOUT NON-STRESS GILBERT Exam Site: [facility] OB #1 Plurality: 1 LMP: 05/21/2021GA By LMP: 36w2d GA Method: LATONYA GA: 36w1d LATONYA: 02/26/2022 OBHx: [G:(1)] F Trm:() Pre:() C-Sec:() Ab-I:() Ab-S:( ) Ect:() Multi:() Angella:() INDICATIONS FOR SONOGRAPHY History COVID infection in IMPRESSION Biophysical Profile Fetus: Live gilbert intrauterine pregn glynn. Presentation: Cephalic. Amniotic fluid volume: Normal (MVP 6.04 cm). Biophysical profile: 06/18. Conclusion: Live gilbert intrauterine in cephalic presentation. Normal amniotic fluid volume (MVP cm). BPP 06/18. OBSERVATIONS Observations FHR: 127 bpm Presentation: Cephalic Placental Location: Anterior Amniotic Fluid Fluid Volume: Normal MVP: 6.04 cm Biophysical Profile Variables Score: 2=Normal, 0=Abnormal. Movements: 2 Breathing Movements:2 Tone: 2 Amniotic Fluid Volume: 2 Total Score = 06/18 Preliminary Read by Mariza Gallegos R.D.M.S. on 01/30/2022 2:59:41 PM. Safety Patrol Officer: Mariza Gallegos R.D.M.S . Thank You For This Referral Layne Ramirez APRNNJuliaP., M.S.N. IMG OB US PROCEDURE S documented in this encounter Visit Diagnoses Diagnosis High Risk (HCC) - Primary Encounter For Screening For Other Viral Diseases (COVID-19) High Risk (HCC) High Risk (HCC) documented in this encounter Additional Health Concerns Assessment Noted Time PHQ-9 Depression Total Score: 4 11/29/2021 10:43 AM CS T documented as of this encounter Care Teams Bilingual Counter Sales Retail Relationship Specialty Start Date End Date Belkys Marshall APRN, C.N.P., M.S. PCP - General Family Medicine 11/16/19 [address] [place] [address] documented as of this encounter
--- OUTSIDE RECORDS SUMMARY | 2022-08-31 12:34 | XMS_ITS | Encounter Summary ---
:1995 Author Organization [facility] Address [address] [place] [address] Care Team Providers Name Role Phone Belkys Marshall APRN, C.N.Mame., M.S. Primary Care Provider +1- [phone] Encounter Details Date Type Department Care Team Description 11/01/2021 Orders Only Pharmacy Prior Auth Jemima Rivas [phone] [address] [place] [phone] Social History Tobacco Use Types Packs/Day Years [...] or relatives? How often do you attend mandaen or 1 to 4 times per year 11/11 anabaptism services? Do you belong to any clubs or Yes 11/23/2021 organizations such as mandaen groups, unions, fraternal or athletic groups, or [...] place to sleep or slept in a intermediate (including now)? Education Answer Date Recorded What [...] documented as of this encounter Care Teams Die Casting Machine Maintainer Relationship Specialty Start Date End Date Belkys Marshall, KARL, C.N.P., M.S. PCP - General Family Medicine 11/16/19 [address] [place] [address] documented as of this encounter
--- OUTSIDE RECORDS SUMMARY | 2022-08-31 12:34 | XMS_ITS | Encounter Summary ---
:1995 Author Organization [facility] Address [address] [place] [address] Care Team Providers Name Role Phone Belkys Marshall APRN, C.N.Mame., M.S. Primary Care Provider +1- [phone] Encounter Details Date Type Department Care Team Description 01/17/2022 Clinical Communication Department of Angela Hassan, Obstetrics and Kasey, Ph.D. Gynecology in [address] [place] [address] [place] [address] [place], [place] [phone] (Work) [phone] Social History Tobacco Use Types Packs/Day Years [...] or relatives? How often do you attend voodoo or 1 to 4 times per year 11/11 yarsanism services? Do you belong to any clubs or Yes 11/23/2021 organizations such as voodoo groups, unions, fraternal or athletic groups, or [...] have completed or the highest Connie, MEd, WOOL FLEECE GRADER, LORI) degree you have received? Sex Assigned at Date Recorded Female 07/18/2021 2:49 PM CDT documented as of this encounter Miscellaneous Notes Telephone Encounter - Nereida Martin - 01/17/2022 4:43 PM CST LMTCB, r/s US and Dr. Hassan appt on 01-19 CLING DIRECTOR documented in this encounter Plan of Treatment Not on filedocumented as of this encounter Visit Diagnoses Not on filedocumented in this encounter Additional Health Concerns Assessment Noted Time PHQ-9 Depression Total Score: 4 11/29/2021 10:43 AM CS T documented as of this encounter Care Teams Casino Cage Supervisor Relationship Specialty Start Date End Date Belkys Marshall APRN, C.N.P., M.S. PCP - General Family Medicine 11/16/19 [address] [place] [address] documented as of this encounter
--- OUTSIDE RECORDS SUMMARY | 2022-08-31 12:34 | XMS_ITS | Encounter Summary ---
:1995 Author Organization [facility] Address [address] [place] [address] Care Team Providers Name Role Phone Belkys Marshall APRN C.N.P., M.S. Primary Care Provider +1- [phone] Encounter Details Date Type Department Care Team Description 12/19/2021 Hospital Encounter Department of Jenaro Hassan, [facility] ; Obstetrics and MMichael, Ph.D. Colitis Crohn's (HCC) Gynecology in [address] [place] [address] [place] [address] [employer], [place] [phone] (Work) [phone] Social History Tobacco Use Types Packs/Day Years [...] or relatives? How often do you attend religious or 1 to 4 times per year 11/11 taoism services? Do you belong to any clubs or Yes 11/23/2021 organizations such as religious groups, unions, fraternal or athletic groups, or [...] have completed or the highest Connie, MEd, GAS TECHNICIAN, LORI) degree you have received? Sex Assigned at Date Recorded Female 07/18/2021 2:49 PM CDT documented as of this encounter Medications at Time of Discharge Medication Sig Dispensed Refills Start Date End Date albuterol inhaler Inhale 1-2 puffs every 1 Inhaler 1 2019 4 (four) hours as needed for wheezing or shortness of breath. ustekinumab (Stelara) Inject 90 mg 180 mL 2 11/01/2021 90 mg/mL subcutaneously every 8 injectionIndications: weeks. Crohn's Disease (HCC) mercaptopurine TAKE 1 TABLET BY MOUTH 180 tablet 0 1 12/22/2021 (PURINETHOL) 50 mg DAILY ON AN EMPTY tablet STOMACH ondansetron ODT Take 1 tablet (4 mg 30 tablet 0 07/29/2020 01/30/2022 (ZOFRAN-ODT) 4 mg total) by mouth every disintegrating 8 (eight) hours as tabletIndications: needed for nausea or Colitis Crohn's (HCC) vomiting. pedi multivit Chew 2 each daily. 0 no.19-folic acid (Flintstones Multi-Vit Gummies) 200 mcg tablet,chewable Take 3 tablets by 0 022 jeslytq-He-ucps-FA 27 mouth daily. mg iron- 1 mg tablet documented as of this encounter Plan of Treatment Not on filedocumented as of this encounter Procedures Procedure Name Priority Date/Time Associated Comments Diagnosis US OB FOLLOW UP RAD - Routine 12/19/2021 2:34 High Risk Results for this WITH BPP W/O (most inpatients PM REST ROOM ATTENDANT procedure are in NON-STRESS and all Colitis Crohn's the results outpatients) (HCC) section. documented in this encounter Results US OB Follow up and or Growth with BPP without NST (12/19/2021 2:34 PM REST ROOM ATTENDANT) Anatomical Region Laterality Modality Body, Ultrasound OB RST LOS, Ultrasound ARZ LOS N/A Ultrasound Specimen (Source) Anatomical Location Collection Method / Collectio n Time Received Time / Laterality Volume Narrative 12/19/2021 4:36 PM REST ROOM ATTENDANT LAUREL CARABALLO OB Exam, 12/19/2021 EXAM INFORMATION Patient Name: ??LAUREL CARABALLO : ??1995 Age: ??26 yrs Sex: ??Female Ref Phys: ??JENARO HASSAN Exam Date: 12/19/2021 Procedure: US OB FOLLOW UP WITH BPP W/O NON-STRESS Exam Site: [facility] OB #5 Plurality: 1 OBHx: [G:(1)] ?F Trm:() Pre:() C-Sec:() Ab-I:( ) Ab-S:() Ect:() Multi:() Angella:() INDICATIONS FOR SONOGRAPHY Growth/BPP High risk ; Colitis Crohns IMPRESSION Transabdominal ultrasound was performed. Growth Barrett in Breech presentation. Compos ite biometry consistent with gestational age, 65%; 1663 gms. Biophysical Profile Barrett BPP score is 8/ 8. The maximum vertical pocket is 5.09 cm. MEASUREMENTS ??carmina ??wks [+/-] (R presley) % ?? BPD: 7.87 cm ?? 31w4d ??[+/-3.08] ??(7. 02 - 8.19) 81% FL: 5.71 cm ?? 30w0d ??[+/-2.96] ??(5.2 8 - 6.46) 29% HC: 28.85 cm ?? 31w5d ??[+/-2.98] ??(26 .60 - 30.52) 61% AC: 27.15 cm ?? 31w2d ??[+/-2.96] ??(23 .53 - 28.78) 77% CI: 77.38 ?(71.06 - 85.54) 44% RATIOS ??(Range) % ?? HC/AC: 1.06 ?(0.99 - 1. 20) 36% ?? FL/BPD: 0.73 ? FL/AC: 0.21 ? COMPUTATIONS GA: ?? 30w1d [+/-2.44] Method: LATONYA LATONYA: 02/26/2022 Sono GA: 30w4d [+/-2.44] Method: ?? BPD, HC, AC, FL Weight: ??1663 gms. ??3 lb 10 oz. ??65% Method: BPD, HC, AC, FL OBSERVATIONS Amniotic Fluid Fluid Volume: ??Normal MVP: ??5.09 cm Placenta: Placenta is Anterior. ?? Presentation: ?? Breech Growth: Within normal limits. FHR: 122 bpm Biophysical Profile Variables Score: 2=Normal, 0=Abnormal. ?? Movements: 2 ??Breathing Movements: 2 ?? Tone: 2 ??Amniotic Fluid Volume: 2 Total Score = 06/18 Preliminary Read by Ruchi Morales [RO US] on 12/19/2021 2:36:58 PM. Pressure Vessel Inspector: ??Ruchi Morales [RO U S] Thank You For This Referral Procedure Note Asad Cox M.D. - 12/19/2021Form atting of this note might be different from the original. LAUREL CARABALLO OB Exam, 12/19/2021 EXAM INFORMATION Patient Name: LAUREL CARABALLO : 1995 Age: 26 yrs Sex: Female Ref Phys: JENARO HASSAN Exam Date: 12/19/2021 Procedure: US OB FOLLOW UP WITH BPP W/O NON-STRESS Exam Site: [facility] OB #5 Plurality: 1 OBHx: [G:(1)] F Trm:() Pre:() C-Sec:() Ab-I:() Ab-S:( ) Ect:() Multi:() Angella:() INDICATIONS FOR SONOGRAPHY Growth/BPP High risk ; Colitis Crohns IMPRESSION Transabdominal ultrasound was performed. Growth Barrett in Breech presentation. Compos ite biometry consistent with gestational age, 65%; 1663 gms. Biophysical Profile Barrett BPP score is 8/ 8. The maximum vertical pocket is 5.09 cm. MEASUREMENTS carmina wks [+/-] (Range ) % BPD:7.87 cm 31w4d [+/-3.08] (7.02 - 8.1 9) 81% FL: 5.71 cm 30w0d [+/-2.96] (5.28 - 6.4 6) 29% HC: 28.85 cm 31w5d [+/-2.98] (26.60 - 3 0.52) 61% AC: 27.15 cm 31w2d [+/-2.96] (23.53 - 2 8.78) 77% CI: 77.38 (71.06 - 85.54) 44% RATIOS (Range) % HC/AC:1.06 (0.99 - 1.20) 36% FL/BPD:0.73 FL/AC:0.21 COMPUTATIONS GA: 30w1d [+/-2.44] Method: LATONYA LATONYA: 02/26/2022 Sono GA: 30w4d [+/-2.44] Method: BPD, HC, AC, FL Weight: 1663 gms. 3 lb 10 oz. 65% Method: BPD, HC, AC, FL OBSERVATIONS Amniotic Fluid Fluid Volume: Normal MVP: 5.09 cm Placenta: Placenta is Anterior. Presentation: Breech Growth: Within normal limits. FHR: 122 bpm Biophysical Profile Variables Score: 2=Normal, 0=Abnormal. Movements: 2 Breathing Movements:2 Tone: 2 Amniotic Fluid Volume: 2 Total Score = 8/8 Preliminary Read by Ruchi Morales [RO US] on 12/19/2021 2:36:58 PM. Pressure Vessel Inspector: Ruchi Morales [RO US] Thank You For This Referral Jenaro Hassan M.D., Ph.D. IMG OB US PROCEDURES documented in this encounter Visit Diagnoses Diagnosis High Risk (HCC) Colitis Crohn's (HCC) documented in this encounter Additional Health Concerns Assessment Noted Time PHQ-9 Depression Total Score: 4 11/29/2021 10:43 AM CS T documented as of this encounter Care Teams Business Transformation Analyst Relationship Specialty Start Date End Date Belkys Marshall, KARL, C.N.P., M.S. PCP - General Family Medicine 11/16/19 [address] [place] [address] documented as of this encounter
--- OUTSIDE RECORDS SUMMARY | 2022-08-31 12:34 | XMS_ITS | Encounter Summary ---
:1995 Author Organization [facility] Address [address] [place] [id number] Care Team Providers Name Role Phone Belkys Marshall APRN C.N.P., M.S. Primary Care Provider +1- [phone] Encounter Details Date Type Department Care Team Description 02/05/2022 Hospital Encounter Department of Jenaro Hassan [facility] Obstetrics and Kasey, Ph.D. Gynecology in [address] [place] [address] [place] [id number] [place], [place] [phone] (Work) [phone] Social History Tobacco Use Types Packs/Day Years [...] or relatives? How often do you attend judaism or 1 to 4 times per year 11/11 oriental orthodox services? Do you belong to any clubs or Yes 11/23/2021 organizations such as judaism groups, unions, fraternal or athletic groups, or [...] have completed or the highest Connie, MEd, PLISSE MACHINE OPERATOR, LORI) degree you have received? Sex [...] (HCC) Take 3 tablets by 0 022 [id number] 27 mouth daily. mg iron- 1 mg tablet documented as of this encounter Plan of Treatment Not on filedocumented as of this encounter Procedures Procedure Name Priority Date/Time Associated Comments Diagnosis US OB LIMITED AND RAD - Routine 02/05/2022 1:44 High Risk Result s for this BPP WITHOUT NON (most inpatients PM CDT procedur e are in STRESS and all the results outpatients) section. documented in this encounter Results US OB Limited and BPP Without Non Stress (02/05/2022 1:44 PM CDT) Anatomical Region Laterality Modality Body, Ultrasound OB RST LOS, Ultrasound ARZ LOS N/A Ultrasound Specimen (Source) Anatomical Location Collection Method / Collectio n Time Received Time / Laterality Volume Narrative 02/05/2022 1:54 PM CDT LAUREL CARABALLO OB Exam, 02/05/2022 EXAM INFORMATION Patient Name: ??LAUREL CARABALLO : ??1995 Age: ??27 yrs Sex: ??Female Ref Phys: ??JENARO HASSAN Exam Date: 02/05/2022 Procedure: US OB LIMITED AND BPP WITHOUT NON STRESS Exam Site: [facility] OB #2 Plurality: 1 LMP: 05/21/2021 GA By LMP: ??37w1d OBHx: [G:(1)] ?F Trm:() Pre:() C-Sec:() Ab-I:( ) Ab-S:() Ect:() Multi:() Angella:() INDICATIONS FOR SONOGRAPHY BPP MEASUREMENTS ??carmina ??wks [+/-] (R presley) % ?? COMPUTATIONS GA: ?? 37w0d Method: LATONYA LATONYA: 02/26/2022 Sono GA: Method: ?? OBSERVATIONS Amniotic Fluid Fluid Volume: ??Normal MVP: ??6.26 cm Placenta: Placenta is Anterior. ?? Presentation: ?? Cephalic FHR: 133 bpm Biophysical Profile Variables Score: 2=Normal, 0=Abnormal. ?? Movements: 2 ??Breathing Movements: 2 ?? Tone: 2 ??Amniotic Fluid Volume: 2 Total Score = 8/8 ANATOMY Normal: diaphragm, stomach, bladder COMMENTS Biophysical Profile Barrett Barrett intrauterine in [facility] ali presentation. BPP score is 8/ 8. The maximum vertical pocket is 6.2 cm. Preliminary Read by Harika Leo R. D.MJuliaSJulia on 02/05/2022 1:44:04 PM. Rotary Peel Oven Tender: ??Harika Leo R.D.M.S . Thank You For This Referral Procedure Note Jonny Scott M.B.B.S., M.D. - 02/05 LAUREL CARABALLO OB Exam, 02/05/2022 EXAM INFORMATION Patient Name: LAUREL CARABALLO : 1995 Age: 27 yrs Sex: Female Ref Phys: JENARONataliya HASSAN Exam Date: 02/05/2022 Procedure: US OB LIMITED AND BPP WITHOUT NON STRESS Exam Site: [facility] OB #2 Plurality: 1 LMP: 05/21/2021GA By LMP: 37w1d OBHx: [G:(1)] F Trm:() Pre:() C-Sec:() Ab-I:() Ab-S:( ) Ect:() Multi:() Angella:() INDICATIONS FOR SONOGRAPHY BPP MEASUREMENTS carmina wks [+/-] (Range ) % COMPUTATIONS GA: 37w0d Method: LATONYA LATONYA: 02/26/2022 Sono GA: Method: OBSERVATIONS Amniotic Fluid Fluid Volume: Normal MVP: 6.26 cm Placenta: Placenta is Anterior. Presentation: Cephalic FHR: 133 bpm Biophysical Profile Variables Score: 2=Normal, 0=Abnormal. Movements: 2 Breathing Movements:2 Tone: 2 Amniotic Fluid Volume: 2 Total Score = 8/8 ANATOMY Normal: diaphragm, stomach, bladder COMMENTS Biophysical Profile Barrett Barrett intrauterine in [facility] alic presentation. BPP score is 8/ 8. The maximum vertical pocket is 6.2 cm. Preliminary Read by Harika Leo R. D.M.S. on 02/05/2022 1:44:04 PM. Rotary Peel Oven Tender: Harika Leo R.D.M.S. Thank You For This Referral Jenaro Hassan M.D., Ph.D. IMG OB US PROCEDURES documented in this encounter Visit Diagnoses Diagnosis High Risk (HCC) documented in this encounter Additional Health Concerns Assessment Noted Time PHQ-9 Depression Total Score: 4 11/29/2021 10:43 AM CS T documented as of this encounter Care Teams Cableman Relationship Specialty Start Date End Date Belkys Marshall, KARL, C.N.P., M.S. PCP - General Family Medicine 11/16/19 [address] [place] [address] documented as of this encounter
--- OUTSIDE RECORDS SUMMARY | 2022-08-31 12:34 | XMS_ITS | Encounter Summary ---
:1995 Author Organization [facility] Address [address] [place] [address] Care Team Providers Name Role Phone Belkys Marshall APRN, C.NTawanna, M.S. Primary Care Provider +1- [phone] Reason for Referral Medication Prior Authorization - Authorized Specialty Diagnoses / Procedures Referred By Contact Refer red To Contact Diagnoses Crohn's Disease (HCC) Moise Redmond M.D. [address] [place] [phone] Referral ID Status Reason Start Date Expiration Date Visits V isits Requested Authorized [id number] Authorized 10/15/2021 11/14/2023 1 1 E CQ DEVELOPER Reason for Visit Reason Comments Med Refill Encounter Details Date Type Department Care Team Description 11/01/2021 Refill Division of Gastroenterology in [facility], Med Refill [place], [place] Jacky MartinezB.S. [address] [place] [address] [place] [phone] [place], [place] [phone] (Wo rk) Social History Tobacco Use Types [...] 1 to 4 times per year 11/11 zoroastrianism services? Do you belong to any clubs [...] as of this encounter Visit Diagnoses Diagnosis Crohn's Disease (HCC) documented in this encounter Additional Health Concerns Assessment Noted Time PHQ-9 Depression Total Score: 1 08/01/2021 1:42 PM CDT documented as of this encounter Care Teams Manager Transport Relationship Specialty Start Date End Date Belkys Marshall, KARL, C.N.P., M.S. PCP - General Family Medicine 11/16/19 [address] [place] [address] documented as of this encounter
--- OUTSIDE RECORDS SUMMARY | 2022-08-31 12:34 | XMS_ITS | Encounter Summary ---
:1995 Author Organization [facility] Address [address] [place] [address] Care Team Providers Name Role Phone Belkys Marshall APRN C.N.P., M.S. Primary Care Provider +1- [phone] Reason for Visit Reason Comments Patient Education Encounter Details Date Type Department Care Team Description 11/08/2021 Clinical Communication Department of Saira Cerrato Education Infusion Therapy in [place] Esqueda [address] [address] [place] [address] Social History Tobacco Use Types Packs/Day Years [...] 1 to 4 times per year 11/11 taoist services? Do you belong to any clubs [...] place to sleep or slept in a halfway (including now)? Education Answer Date Recorded What is the highest level of school Bachelor's degree (e.g., BA, AB, 09/27/2019 you have completed or the highest BS) degree you have received? Sex Assigned at Date Recorded Female 07/18/2021 2:49 PM CDT documented as of this encounter Miscellaneous Notes Telephone Encounter - Theresa Cerrato R.N. - 11/08/2021 2:13 PM FINANCIAL SERVICES PROFESSIONAL Hi, my name is Theresa Cerrato R.N. from [facility] with a recommendation that you receive a monoclonal antibody infusion, called sotrovimab, for the treatment of coronavirus disease 2019 (COVID-19).This medication has been recommended for you after review of your medical records by a multidisciplinary physician team. While most people do feel better in seven days, some people do develop serious respiratory complications which could lead to hospitalizations or even . In the next few minutes,I am going to give you more information about this medication to help you understand the possible risks and benefits of taking a monoclonal antibody infusion. It is your choice to receive a monoclonal antibody infusion or stop at any time. ??? Receiving a monoclonal antibody infusion may benefit certain people with COVID-19. ??? This may decrease your risk for hospitalization by 10% to 3% ??? This may decrease the duration of your symptoms by 2 days (from 8 days to 6 days) ??? You may be feeling well now or not that bad, however, you have been identified as someone who isat risk of developing worse symptoms, and this infusion is designed to prevent that and help you to continue feeling well. What is a monoclonal antibody infusion? These are investigational medicines used for the treatment of COVID-19. It can be used in peoplewho are: o Not in the hospital o Who do not have a new or increased oxygen requirement due to COVID-19 o Who have not previously tested positive for COVID-19 within the last 90 days o Age 12 and older o Have mild or moderate symptoms o Weigh equal or more than 88 pounds o AND who are at high risk for developing severe COVID-19 symptoms or being hospitalized. ??? Monoclonal antibodies are laboratory made proteins that mimic the immune system's ability to fight off harmful pathogens such as viruses. This medication is specifically directed against the COVID-19 spike protein, designed to block the virus' attachment and entry into human cells. Do you have new or increased oxygen requirement due to COVID 19? No, I do need to let you know that your vital signs will be taken on the arrival for the infusion center. If you are found to be in needof oxygen due to COVID-19 then you will not be infused with MAB rather you will be referred to an urgent care or ED for evaluation of worsening disease. Are you having COVID symptoms now? Yes, if so what date did they start 11-06-21 Have you been previously tested and diagnosed with COVID-19? No. I need to let you know that this medication is investigational because it is still being studied. The FDA has approved the use of this medication under an EUA while data is still being collected; but early studies suggest that it reduces the risk of hospitalization. The FDA's Emergency Use Authorization (EUA) has authorized people to receive monoclonal antibody infusions for the treatment of mild COVID-19. [facility] supports this treatment for certain people. Tell your healthcare provider about all of your medical conditions, including if you: ??? Have any allergies ??? Are or plan to become ??? Are or plan to breastfeed ??? Have any serious illnesses ??? Are taking any medications (prescription, sruz-jvh-jcqqmco, vitamins, and herbal products) How will I receive a monoclonal antibody infusion? Monoclonal antibodies are given to you through a vein in your arm over approximately 30 - 60 minutes. You will be observed for 1 hour after the infusion is complete to monitor for side effects. You will receive one dose of the monoclonal antibody infusion by IV infusion. What are the important possible side effects of monoclonal antibodies? The most commonly reported side effects in clinical studies have been nausea, diarrhea, dizziness, headache, itching and vomiting. Serious reactions such as allergic reactions or infusion reactions have occurred but are uncommon. Tell your health care provider right away if you have any of the following signs or symptoms of an allergic reaction: fever, chills, nausea, headache, shortness of breath, low blood pressure, wheezing, swelling of your lips face or throat, rash including hives, itching, muscle aches and dizziness. Because monoclonal antibody infusions are still being studied, not a lot of people have been given monoclonal antibody infusions yet, and it is possible that not all of the risks are known at this time. Serious and unexpected side effects may happen. Specific studies have not been conducted to address the possible risks that a monoclonal antibody infusion could interfere with your body's own ability to fight off a future infection of SARS-CoV-2 and/or whether it could reduce your body's immune response to a vaccine for SARS-CoV-2 . Talk to your healthcare provider if you have any questions including whether the risks of serious SARS-CoV-2 infection outweigh the potential risks of monoclonal antibody infusion. Patients who receive a monoclonal antibody infusion are still eligible for a COVID-19 vaccine. Patients who receive monoclonal antibody therapies are advised to delay COVID vaccination for 90 days after receiving the monoclonal therapy. Some patients have expressed concerns about disrupting their vaccine schedule by accepting the monoclonal therapy. We strongly recommend that patients offered monoclonal therapies not decline treatments due to concerns about interfering with vaccination schedules. The vaccine is not an effective treatment for an acute COVID infection but an infusion of monoclonalantibodies is and existing data shows that the risk of re- infection with COVID-19 within 90 days is low. CDC experts agree that the benefits of monoclonal therapies is greater than the risk of delaying vaccination. We wanted you to know that [facility] is encouraging you to treat the illness you have now, this will help you right away and [facility] while still being eligible for the vaccine. We also strongly encourage you to get your flu vaccine this year once your isolation has ended and you are feeling well. Have you had a COVID-19 vaccine? Yes; if so what date? I have; Thank you for sharing. I am still able to schedule your MAB infusion, but need to make sure you know that your next dose of the COVID-19 vaccine needs to be 90 days after your MAB infusion. I wanted to share with you that if you have completed your COVID 19 vaccine series and then test positive while being symptomatic you are eligible to receive MAB. MAB has been shown to benefit COVID-19 patients who have previously been vaccinated. I am happy to share with you that since September 2020 [facility] has infused over 21,000 patients with a monoclonal antibody infusion across our [place] sites. I am sharing this because we havenot seen any serious side effects in the patients who choose to receive the infusion. The side effects that we are seeing are similar to patients who choose not to receive the medication at all. Patients have reported to us mild fever, diarrhea, chills for a short while, and/or hives. What other treatment choices are there? Like monoclonal antibody infusions, the FDA may allow for the emergency use of other medicines to treat people with COVID-19. Go to https://www.nnhgc48xpnnxoopfojowuhndpm.nih.gov/ for information on the emergency use of other medicines that are not approved by FDA to treat people with COVID- 19. Your healthcare provider may talk with you about clinical trials you may be eligible for. It is your choice to be treated or not to be treated with a monoclonal antibody infusion. Should youdecide not to receive a monoclonal antibody infusion or stop it at any time, it will not change yourstandard medical care. Are you or ? Yes; While there is limited evidence regarding the use of COVID monoclonal antibody therapy in , there is evidence that treating women with other immune therapy is safe. In addition, since the EUA of monoclonal antibody therapy in September 2020, many and women have received this therapy without incident. In March 2021, was added to the list of high risk conditions that qualify patients for monoclonal antibody therapy. is known to be a high risk condition for developing severe COVID disease. And severe disease can cause serious complications in . For a mother and her unborn baby, the benefit of receiving monoclonal antibody therapy is likely greater than the risk from the treatment. The [facility] Obstetrics and Gynecology team supports the use of monoclonal antibody therapy for the prevention of severe disease in women. In our experience these infusions are well tolerated by patients who are . At [facility] we have infused 51 women, who have experienced no complications and of those who have delivered; 29 healthy infants have been born post infusion. If you have further questions, you may contact your care team. How do I report side effects with monoclonal antibody infusion? Tell your healthcare provider right away if you have any urgent side effects. For non-urgent side effects or side effects that bothers you or does not go away please contact the care team coordinating your COVID care during business hours. This may be your primary care provider, your COVID care team or your remote monitoring nurse team, which ever is applicable after emergency care, if needed, has been reached. Report side effects to [employer] at www.FeeFighters.gov/medInnorange Oytch, call 8-074-YXH-1505. How can I learn more? Ask your healthcare provider ??? Visit https://www.vqgvd21nktocznvpapljnahepq.nih.gov/ ??? Contact your local or state public health department Would you like to learn more about what an Emergency Use Authorization (EUA)?Yes; The [place] FDA has made these monoclonal antibody infusions available under an emergency access mechanism calledan EUA. The EUA is supported by a [place] of Health and Human Service (HHS) declaration that circumstances exist to justify the emergency use of drugs and biological products during the COVID-19 pandemic. What is the cost for this medication? The medication is provided to [facility] at no charge and there is no cost of the medication to youthe patient. Any associated costs with the infusion will be billed to the patient's insurance company. [facility] does not want cost to be a barrier to infusion so please let us know at your infusion if you need more information or are worried about cost being a barrier. If you are uninsured or underinsuredyou will still be able to receive this medication free of cost. Medication Interactions Please know that there has been a large review by pharmacists, and this medication is not likely to interfere with any normal medication patients may be taking. This is possible as your body processes this medication differently than standard prescription medications. Given how this medication helps your body it is better to receive this medication as soon as possible if you agree to the infusion. Please know that our team is offering and will provide you this treatment for COVID-19 as part of a larger team that is coordinating your overall care. If you have continued questions after your infusion or your symptoms get worse please reach out to the team coordinating your clinical care, either a COVID-19 focused team or your primary care provider's office. If you have a patient portal please look at your messages as there may be one awaiting your review from the clinical team coordinating your care. Do you agree/consent to receive this infusion? Yes; The following education has been completed in accordance with the FDA Emergency Use Authorization (EUA) requirements: Informed patient/caregiver thatmonoclonal antibody infusions are an unapproved drug that is authorized for use under this EUA. Informed patient/caregiver of alternatives to receiving authorized monoclonal antibody infusions The Fact Sheet for Patients, Parents and Caregivers will be provided to patient/caregiver at the [facility]. Thank you for your time, I will connect with the rest of the team to let them know the results of this phone call. SUBJECTIVE CHIEF COMPLAINT / REASON FOR CALL Patient Education Information Discussed Monoclonal infusion consented for [employer] Disposition/Recommendation: patient transferred to the appointment desk Information/Education: patient/caller able to teach back Caller agreeable to plan of care: yes The following references were used: nursing clinical judgement and other monoclonal education NCIAL SERVICES PROFESSIONAL documented in this encounter Plan of Treatment Not on filedocumented as of this encounter Visit Diagnoses Diagnosis Colitis Crohn's (HCC) - Primary documented in this encounter Additional Health Concerns Infection Onset Date Last Indicated Resolved Time [id number]: 11/21. Pt meets 11/06/2021 11/08/2021 0 11/21/2021 9:54 AM FINANCIAL SERVICES PROFESSIONAL criteria for removal of COVID19 infection . MJW Assessment Noted Time PHQ-9 Depression Total Score: 1 08/01/2021 1:42 PM CDT documented as of this encounter Care Teams Captain Fishing Vessel Relationship Specialty Start Date End Date Belkys Marshall APRN, C.N.P., M.S. PCP - General Family Medicine 11/16/[address] [place] [address] documented as of this encounter
--- OUTSIDE RECORDS SUMMARY | 2022-08-31 12:34 | XMS_ITS | Encounter Summary ---
:1995 Author Organization [facility] Address [address] [place] [address] Care Team Providers Name Role Phone Belkys Marshall APRN, C.N.P., M.S. Primary Care Provider +1- [phone] Encounter Details Date Type Department Care Team Description 01/30/2022 Hospital Encounter Department of Shiela Barraza, High Risk Obstetrics and Laverne BARAJAS, Gynecology in [address] [place] [phone] Social History Tobacco Use Types Packs/Day Years [...] or relatives? How often do you attend hindu or 1 to 4 times per year 11/11 oriental orthodox services? Do you belong to any clubs or Yes 11/23/2021 organizations such as hindu groups, unions, fraternal or athletic groups, or [...] have completed or the highest Connie, MEd, CASH REGISTER SERVICER, LORI) degree you have received? Sex Assigned [...] (HCC) Take 3 tablets by 0 022 [id number]-[id number]-FA 27 mouth daily. mg iron- 1 mg tablet documented as of this encounter Plan of Treatment Not on filedocumented as of this encounter Procedures Procedure Name Priority Date/Time Associated Comments Diagnosis US OB BIOPHYSICAL RAD - Routine 01/30/2022 3:01 High Risk Result s for this PROFILE WITHOUT (most inpatients PM CDT procedur e are in NON-STRESS and all the results GILBERT outpatients) section. documented in this encounter Results US OB Biophysical Profile without Non-Stress Gilbert (01/30/2022 3:01 PM CDT) Anatomical Region Laterality Modality Body, Ultrasound OB RST LOS, Ultrasound ARZ LOS N/A Ultrasound Specimen (Source) Anatomical Location Collection Method / Collectio n Time Received Time / Laterality Volume Narrative 01/30/2022 5:18 PM CDT LAUREL CARABALLO Assessment Exam, 01/30/2022 EXAM INFORMATION Patient Name: ??LAUREL CARABALLO : ??1995 Age: ??26 yrs Sex: ??Female Ref Phys: ??SHIELA BARRAZA Exam Date: 01/30/2022 Procedure: US OB BIOPHYSICAL PROFILE WIT HOUT NON-STRESS [place]IL[place]ERT Exam Site: [facility] OB #1 Plurality: 1 LMP: 05/21/2021 GA [...] Score = 06/18 Preliminary Read by Mariza Gallegos, R.Jody.M.S. on 01/30/2022 2:59:41 PM. Shelter Monitor: ??Mariza Gallegos R.D.M .S. Thank You For This Referral Procedure Note Regine Cortez M.D. - 01/31/20 LAUREL CARABALLO Assessment Exam, 01/30/2022 EXAM INFORMATION Patient Name: LAUREL CARABALLO : 1995 Age: 26 yrs Sex: Female Ref Phys: SHIELA BARRAZA Exam Date: 01/30/2022 Procedure: US OB BIOPHYSICAL PROFILE WIT HOUT NON-STRESS [place]ERT Exam Site: [facility] OB #1 Plurality: 1 LMP: 05/21/2021GA By [...] Total Score = 8/8 Preliminary Read by Mariza Gallegos R.D.MuJliaSJulia on 01/30/2022 2:59:41 PM. Shelter Monitor: Mariza Gallegos R.D.M.S . Thank You For This Referral Shiela Barraza APRN, C.N.P., M.S.N. IMG OB US PROCEDURE S documented in this encounter Visit Diagnoses Diagnosis High Risk (HCC) documented in this encounter Additional Health Concerns Assessment Noted Time PHQ-9 Depression Total Score: 4 11/29/2021 10:43 AM CS T documented as of this encounter Care Teams Stick Inserter Relationship Specialty Start Date End Date Belkys Marshall APRN, C.N.P., M.S. PCP - General Family Medicine 11/16/19 [address] [place] [address] documented as of this encounter
--- OUTSIDE RECORDS SUMMARY | 2022-08-31 12:34 | XMS_ITS | Encounter Summary ---
:1995 Author Organization [facility] Address [address] [place] [address] Care Team Providers Name Role Phone Belkys Marshall APRN, C.N.Cherise, M.S. Primary Care Provider +1- [phone] Encounter Details Date Type Department Care Team Description 01/30/2022 Routine Department of Shiela Romo APRN C.N.P., M.S.N. [address] [place] [phone] High Risk Obstetrics and Gayla Paris RJuliaNJulia [address] [place] [phone] Gynecology in [place], [place] [address] [place] [phone] Social History Tobacco Use Types Packs/Day Years [...] or relatives? How often do you attend mandaeism or 1 to 4 times per year 11/11 latter-day services? Do you belong to any clubs or Yes 11/23/2021 organizations such as mandaeism groups, unions, fraReferral.IM or athletic groups, or school groups? How [...] have completed or the highest Connie, MEd, LEAK GANG SUPERVISOR, LORI) degree you have received? Sex Assigned at Date Recorded Female 07/18/2021 2:49 PM CDT documented as of this encounter Last Filed Vital Signs Vital Sign Reading Time Taken Comments Blood Pressure 107/71 01/30/2022 3:18 PM CDT Pulse 91 01/30/2022 3:18 PM CDT Temperature - - Respiratory Rate - - Oxygen Saturation - - Inhaled Oxygen Concentration - - Weight 79.1 kg (174 lb 6.1 oz) 01/30/2022 3:18 PM CDT Height - - Body Mass Index 28.46 07/29/2020 10:03 AM CDT documented in this encounter Progress Notes Gayla Paris RJuliaN. - 01/30/2022 3:00 PM CDT ATU Nurse Visit SUBJECTIVE CHIEF COMPLAINT / REASON FOR VISIT Laurel Mcdonald is a 26 y.o. with an Estimated Date of Delivery: 02/26/22. Gestational age is 36w1d. Patient was seen today for a biophysical profile of 06/18 OBJECTIVE VITAL SIGNS Blood Pressure: 107/71 Weight: 79.1 kg ASSESSMENT / PLAN The testing findings were discussed with patient Patient denies: fever, decreased movement, leaking of fluid, vaginal bleeding, headache, changes in vision, epigastric pain. Provider not contacted. Testing within parameters. Reviewed with patient: Signs & symptoms of pre-eclampsia: blood pressure of 140/90 or greater, persistent headache, chest pain, abdominal pain, visual changes, shortness of breath, dizziness, or weakness. ATU note forwarded to primary OB provider Dr oM Paris R.N. documented in this encounter Plan of Treatment Not on filedocumented as of this encounter Procedures Procedure Name Priority Date/Time Associated Diagnosis Comme nts GRP B STREP (S. Routine 01/30/2022 3:31 PM High Risk Results for this AGALACTIAE) CULTURE CDT procedur e are in the results section. documented in this encounter Results Grp B Strep (S. agalactiae) Culture (01/30/2022 3:31 PM CDT) [facility] Method Time Signature Grp B Strep No growth of 02/02/2022 DTL (S. Streptococcus 10:43 AM agalactiae) agalactiae CDT Culture Specimen Anatomical Collection Method Collection Time Receive d Time (Source) Location / / Volume Laterality Swab 01/30/2022 3:31 PM 7:00 (Vagina-Rectum) CDT PM CDT Comment: Specimen Source Site: Swab Nena Thompson M.D., Ph.D. LAB MICROBIOLOGY - GENER AL ORDERABLES Performing Organization Address City/State/ZIP Code Phon e Number [facility] - [address] [place], [place] [address] [facility] [place] [address] [facility] [address] documented in this encounter Visit Diagnoses Diagnosis High Risk (HCC) documented in this encounter Additional Health Concerns Assessment Noted Time PHQ-9 Depression Total Score: 4 11/29/2021 10:43 AM CS T documented as of this encounter Care Teams Field Appraiser Relationship Specialty Start Date End Date Belkys Marshall APRN, C.N.P., M.S. PCP - General Family Medicine 11/16/19 [address] [place] [address] documented as of this encounter
--- OUTSIDE RECORDS SUMMARY | 2022-08-31 12:34 | XMS_ITS | Encounter Summary ---
:1995 Author Organization [facility] Address [address] [place] [address] Care Team Providers Name Role Phone Belkys Marshall APRN C.N.P., M.S. Primary Care Provider +1- [phone] Encounter Details Date Type Department Care Team Description 01/18/2022 Hospital Encounter Department of Jenaro Hassan [facility] Obstetrics and Kasey, Ph.D. Gynecology in [address] [place] [address] [place] [address] [place], [place] [phone] (Work) [phone] Social History Tobacco Use Types Packs/Day Years [...] or relatives? How often do you attend tenriism or 1 to 4 times per year 11/11 restoration services? Do you belong to any clubs or Yes 11/23/2021 organizations such as tenriism groups, unions, fraternal or athletic groups, or [...] place to sleep or slept in a nursing home (including now)? Education Answer Date Recorded What is the highest level of school Master's degree (e.g., M A, MS, 11/23/2021 you have completed or the highest Connie, MEd, STRATEGIC PROCUREMENT MANAGER, LORI) degree you have received? Sex Assigned at Date Recorded Female 07/18/2021 2:49 PM CDT documented as of this encounter Medications at Time of Discharge Medication Sig Dispensed Refills Start Date End Date albuterol inhaler Inhale 1-2 puffs every 1 Inhaler 1 2019 4 (four) hours as needed for wheezing or shortness of breath. mercaptopurine Take 1 tablet (50 mg 90 tablet 3 12/22/2021 (PURINETHOL) 50 mg total) by mouth daily. tablet on an empty stomach ustekinumab (Stelara) Inject 90 mg 180 mL 2 11/01/2021 90 mg/mL subcutaneously every 8 injectionIndications: weeks. Crohn's Disease (HCC) ondansetron ODT Take 1 tablet (4 mg 30 tablet 0 07/29/2020 01/30/2022 (ZOFRAN-ODT) 4 mg total) by mouth every disintegrating 8 (eight) hours as tabletIndications: needed for nausea or Colitis Crohn's (HCC) vomiting. pedi multivit Chew 2 each daily. 0 no.19-folic acid (Flintstones Multi-Vit Gummies) 200 mcg tablet,chewable Take 3 tablets by 0 022 qqbbuhv-[id number]-FA 27 mouth daily. mg iron- 1 mg tablet documented as of this encounter Plan of Treatment Not on filedocumented as of this encounter Procedures Procedure Name Priority Date/Time Associated Comments Diagnosis US OB FOLLOW UP RAD - Routine 01/18/2022 8:49 High Risk Results for this WITH BPP W/O (most inpatients AM REDUCTION PLANT SUPERVISOR procedure a re in NON-STRESS and all the results outpatients) section. documented in this encounter Results US OB Follow up and or Growth with BPP without NST (01/18/2022 8:49 AM REDUCTION PLANT SUPERVISOR) Anatomical Region Laterality Modality Body, Ultrasound OB RST LOS, Ultrasound ARZ LOS N/A Ultrasound Specimen (Source) Anatomical Location Collection Method / Collectio n Time Received Time / Laterality Volume Narrative 01/18/2022 8:39 AM REDUCTION PLANT SUPERVISOR LAUREL CARABALLO OB Exam, 01/18/2022 EXAM INFORMATION Patient Name: ??LAUREL CARABALLO : ??1995 Age: ??26 yrs Sex: ??Female Ref Phys: ??JENARO HASSAN Exam Date: 01/18/2022 Procedure: US OB FOLLOW UP WITH BPP W/O NON-STRESS Exam Site: [facility] OB 3 Plurality: 1 LMP: 05/21/2021 GA By LMP: ??34w4d OBHx: [G:(1)] ?F Trm:() Pre:() C-Sec:() Ab-I:( ) Ab-S:() Ect:() Multi:() Angella:() INDICATIONS FOR SONOGRAPHY High risk IMPRESSION Barrett intrauterine . LATONYA es tablished by LMP consistent with 9 week scan. Cephalic presentation. Composite biometry falls at the 97% (3071 grams) of anticipated for gestational age. BPP 8/8 with MVP 5.6cm. MEASUREMENTS ??carmina ??wks [+/-] (R presley) % ?? BPD: 9.04 cm ?? 36w4d ??[+/-3.20] ??(7. 96 - 9.13) 95% FL: 6.76 cm ?? 34w5d ??[+/-2.96] ??(6.1 7 - 7.35) 50% HC: 34.51 cm ?? 39w6d ??[+/-2.70] ??(29 .87 - 33.79) >98% AC: 33.53 cm ?? 37w3d ??[+/-3.04] ??(27 .67 - 32.92) >98% RATIOS ??(Range) % ?? HC/AC: 1.03 ?(0.95 - 1. 11) 49% ?? FL/BPD: 0.75 ? FL/AC: 0.20 ? COMPUTATIONS GA: ?? 34w3d [+/-2.44] Method: LATONYA LATONYA: 02/26/2022 Sono GA: 36w4d [+/-2.30] Method: ?? BPD, HC, AC, FL Weight: ??3071 gms. ??6 lb 12 oz. ??97% Method: BPD, HC, AC, FL OBSERVATIONS Amniotic Fluid Fluid Volume: ??Normal MVP: ??5.58 cm Placenta: Placenta is Anterior. ??There is no evidence of a placenta previa. Presentation: ?? Cephalic Size: ?? Large for dates Growth: Large for dates. FHR: 130 bpm Biophysical Profile Variables Score: 2=Normal, 0=Abnormal. ?? Movements: 2 ??Breathing Movements: 2 ?? Tone: 2 ??Amniotic Fluid Volume: 2 Total Score = 8/8 ANATOMY Normal: stomach, kidneys, bladder COMMENTS Transabdominal ultrasound was performed. Growth Barrett in Cephalic presentation. Comp osite biometry large for gestational age. ??EFW is 3071 grams at the 97% for gestational age. Biophysical Profile Barrett Barrett intrauterine in ceph alic presentation. BPP score is 8/ 8. The maximum vertical pocket is 5.58 cm. Preliminary Read by Dru Nicholson on 08/2022 8:30:26 AM. Operations And Maintenance Specialist: ??Dru Nicholson Thank You For This Referral Procedure Note Gilberto Vasquez M.D. - 01/18/2022Formattin g of this note might be different from the original. LAUREL CARABALLO OB Exam, 01/18/2022 EXAM INFORMATION Patient Name: LAUREL CARABALLO : 1995 Age: 26 yrs Sex: Female Ref Phys: JENARONataliya HASSAN Exam Date: 01/18/2022 Procedure: US OB FOLLOW UP WITH BPP W/O NON-STRESS Exam Site: [facility] OB 3 Plurality: 1 LMP: 05/21/2021GA By LMP: 34w4d OBHx: [G:(1)] F Trm:() Pre:() C-Sec:() Ab-I:() Ab-S:( ) Ect:() Multi:() Angella:() INDICATIONS FOR SONOGRAPHY High risk IMPRESSION Barrett intrauterine . LATONYA es tablished by LMP consistent with 9 week scan. Cephalic presentation. Composite biometry falls at the 97% (3071 grams) of anticipated for gestational age. BPP 06/18 with MVP 5.6cm. MEASUREMENTS carmina wks [+/-] (Range ) % BPD:9.04 cm 36w4d [+/-3.20] (7.96 - 9.1 3) 95% FL: 6.76 cm 34w5d [+/-2.96] (6.17 - 7.3 5) 50% HC: 34.51 cm 39w6d [+/-2.70] (29.87 - 3 3.79) >98% AC: 33.53 cm 37w3d [+/-3.04] (27.67 - 3 2.92) >98% RATIOS (Range) % HC/AC:1.03 (0.95 - 1.11) 49% FL/BPD:0.75 FL/AC:0.20 COMPUTATIONS GA: 34w3d [+/-2.44] Method: LATONYA LATONYA: 02/26/2022 Sono GA: 36w4d [+/-2.30] Method: BPD, HC, AC, FL Weight: 3071 gms. 6 lb 12 oz. 97% Method: BPD, HC, AC, FL OBSERVATIONS Amniotic Fluid Fluid Volume: Normal MVP: 5.58 cm Placenta: Placenta is Anterior. There is no evidence of a placenta previa. Presentation: Cephalic Size: Large for dates Growth: Large for dates. FHR: 130 bpm Biophysical Profile Variables Score: 2=Normal, 0=Abnormal. Movements: 2 Breathing Movements:2 Tone: 2 Amniotic Fluid Volume: 2 Total Score = 8/8 ANATOMY Normal: stomach, kidneys, bladder COMMENTS Transabdominal ultrasound was performed. Growth Barrett in Cephalic presentation. Comp osite biometry large for gestational age. EFW is 3071 grams at the 97% for gestational age. Biophysical Profile Barrett Barrett intrauterine in ceph alic presentation. BPP score is 8/ 8. The maximum vertical pocket is 5.58 cm. Preliminary Read by Dru Nicholson on 08/2022 8:30:26 AM. Operations And Maintenance Specialist: Dru Nicholson Thank You For This Referral Jenaro Hassan M.D., Ph.D. IMG OB US PROCEDURES documented in this encounter Visit Diagnoses Diagnosis High Risk (HCC) documented in this encounter Additional Health Concerns Assessment Noted Time PHQ-9 Depression Total Score: 4 11/29/2021 10:43 AM CS T documented as of this encounter Care Teams Wall Insulation Sprayer Relationship Specialty Start Date End Date Belkys Marshall APRN, C.N.P., M.S. PCP - General Family Medicine 11/16/19 [address] [place] [address] documented as of this encounter
--- OUTSIDE RECORDS SUMMARY | 2022-08-31 12:34 | XMS_ITS | Encounter Summary ---
:1995 Author Organization [facility] Address [address] [place] [address] Care Team Providers Name Role Phone Belkys Marshall APRN C.N.P., M.S. Primary Care Provider +1- [phone] Encounter Details Date Type Department Care Team Description 11/06/2021 Specialty Pharmacy [facility] Kaela Marsh L, [address] Varsha Jansen Pharm.D., R.Ph. [address] [address] [place], [place] [phone] (Wo rk) Social History Tobacco Use Types [...] or relatives? How often do you attend pentecostal or 1 to 4 times per year 11/11 anabaptist services? Do you belong to any clubs or Yes 11/23/2021 organizations such as pentecostal groups, unions, fraternal or athletic groups, or [...] this encounter Miscellaneous Notes Telephone Encounter - Kaela Marsh, Pharm.D., R.Ph. - 11/06/2021 1:53 PM CST [facility] Specialty Pharmacy service discontinued at this time. Patient using other pharmacy. RWATER ROBOTICIST documented in this encounter Plan of Treatment Not on filedocumented as of this encounter Visit Diagnoses Not on filedocumented in this encounter Additional Health Concerns Assessment Noted Time PHQ-9 Depression Total Score: 1 08/01/2021 1:42 PM CDT documented as of this encounter Care Teams Head Boys Tennis Coach Relationship Specialty Start Date End Date Belkys Marshall APRN, C.N.P., M.S. PCP - General Family Medicine 11/16/19 [address] [place] [address] documented as of this encounter
--- OUTSIDE RECORDS SUMMARY | 2022-08-31 12:34 | XMS_ITS | Encounter Summary ---
:1995 Author Organization [facility] Address [address] [place] [address] Care Team Providers Name Role Phone Belkys Marshall APRN C.N.P., M.S. Primary Care Provider +1- [phone] Reason for Visit Reason Comments Communication Encounter Details Date Type Department Care Team Description 01/10/2022 Clinical Communication Department of Angela Hassan Com munication Obstetrics and Kasey, Ph.D. Gynecology in [address] [place] [address] [place] [address] [place], [place] [phone] (Work) [phone] Social History Tobacco Use Types Packs/Day Years [...] or relatives? How often do you attend denominational or 1 to 4 times per year 11/11 restorationist services? Do you belong to any clubs or Yes 11/23/2021 organizations such as denominational groups, unions, fraternal or athletic groups, or [...] have completed or the highest Connie, MEd, PLATEN PRESS OPERATOR, LORI) degree you have received? Sex Assigned at Date Recorded Female 07/18/2021 2:49 PM CDT documented as of this encounter Miscellaneous Notes Telephone Encounter - Roxanne Olguin, R.N. - 01/10/2022 2:14 PM CST SUBJECTIVE CHIEF COMPLAINT / REASON FOR CALL Communication ASSESSMENT Pt calling with concerns of worsening symptoms. Pt was seen on 12/31 in Urgent Care. Pt had a rapid strep test that returned negative. Pt was told that she had a sinus infection and a double ear infection. Pt was given a prescription for amoxacillin. Pt contacted her primary care provider as her symptoms were not improving after the course of antibiotics. Pt's PCP prescribed a Z-pac. Pt states that she has one day left of that, and her symptoms continue to worsen. Pt reports that she has a mild feverof 100.9-101.0, that improves after taking Tylenol. Pt reports body aches and cough as well. Pt contacted her PCP and they asked her to reach out to her OB provider. Pt reports good movement. Amrik es vaginal bleeding or loss of fluid. PLAN Per Todd Hassan MD, it is recommended that she get tested for influenza and COVID. Pt is not inclined to do this as the symptoms have gone on for so long. Pt is reassured that there are no obstetric concerns. Pt encouraged to continue to treat her symptoms as needed, and to stay well hydrated. Pt to seekevaluation if she has difficulty breathing, decreased movement, bleeding, or loss of fluid. Disposition/Recommendation: see above. Information/Education: patient/caller able to teach back. Caller agreeable to plan of care: yes. The following references were used: provider Todd Hassan MD. E OIL DRIVER Telephone Encounter - Rae Chavez - 01/10/2022 10:26 AM CST Patient calling in in with a fever, body aches and cough. She will be done with her z- pack tomorrow. She did call her primary and they told her to reach out to us. Please call her. Thank you E OIL DRIVER documented in this encounter Plan of Treatment Not on filedocumented as of this encounter Visit Diagnoses Not on filedocumented in this encounter Additional Health Concerns Assessment Noted Time PHQ-9 Depression Total Score: 4 11/29/2021 10:43 AM CS T documented as of this encounter Care Teams Landcare Officer Relationship Specialty Start Date End Date Belkys Marshall APRN, C.N.P., M.S. PCP - General Family Medicine 11/16/[address] [place] [address] documented as of this encounter
--- OUTSIDE RECORDS SUMMARY | 2022-08-31 12:34 | XMS_ITS | Encounter Summary ---
:1995 Author Organization [facility] Address [address] [place] [address] Care Team Providers Name Role Phone Belkys Marshall APRN C.N.P., M.S. Primary Care Provider +1- [phone] Encounter Details Date Type Department Care Team Description 01/11/2022 Ancillary Procedure Department of Emergency Medicine Social History Tobacco Use Types Packs/Day Years [...] 1 to 4 times per year 11/11 worship services? Do you belong to any clubs [...] have completed or the highest Connie, MEd, GOLD CHARMER, LORI) degree you have received? Sex Assigned at Date Recorded Female 07/18/2021 2:49 PM CDT documented as of this encounter Plan of Treatment Not on filedocumented as of this encounter Procedures Procedure Name Priority Date/Time Associated Diagnosis Comme nts EMERGENCY MEDICINE Routine 01/11/2022 10:20 PM Re sults for this IMAGE EXAM TANK CHARGER procedure are i n the results section. documented in this encounter Results Unspecified-Emergency Medicine Image Exam (01/11/2022 10:20 PM TANK CHARGER) Specimen (Source) Anatomical Collection Method Collection Time Re ceived Time Location / / Volume Laterality 01/11/2022 10:20 PM TANK CHARGER Narrative [facility] - 01/11/2022 10:26 PM TANK CHARGER This order has been created and auto-finalized [...] documented as of this encounter Care Teams Rubber Goods Repairer Relationship Specialty Start Date End Date Belkys Marshall APRN, C.N.P., M.S. PCP - General Family Medicine 11/16/[address] [place] [address] documented as of this encounter
--- OUTSIDE RECORDS SUMMARY | 2022-08-31 12:34 | XMS_ITS | Encounter Summary ---
:1995 Author Organization [facility] Address [address] [place] [id number] Care Team Providers Name Role Phone Belkys Marshall APRN, C.N.Mame., M.S. Primary Care Provider [phone] Reason for Referral Outpatient (Routine) - Closed Specialty Diagnoses / Procedures Referred By Contact Refer red To Contact Obstetrics Jen[facility] Lugo M.D., [facility] [address] [place] [phone] Referral ID Status Reason Start Date Expiration Date Visits Requ ested Visits Authorized [id number] Closed 12/19/2021 12/19/2022 1 1 L EXTRUSION SUPERVISOR Reason for Visit Outpatient (Routine) - Closed Specialty Diagnoses / Procedures Referred By Contact Refer red To Contact Jenaro Slaughter M.D., [facility] Gynecology Ph.D. [address] [place] [phone] Referral ID Status Reason Start Date Expiration Date Visits Requ ested Visits Authorized [id number] Closed 10/23/2021 10/23/2022 1 1 Encounter Details Date Type Department Care Team Description 12/19/2021 Routine Department of Jenaro Hassan, High Risk (Primary Dx); Obstetrics and M.Jody., Ph.D. Personal History Of Infectious And Zenon itic Disease (COVID-19); Gynecology in [address] [facility] Polyp Gallbladder; [place], [place] Colitis Crohn's (HCC); [address] [address] Asthma Mild Intermittent (HCC) [place], [place] [phone] (Work) [phone] Social History Tobacco Use Types Packs/Day Years [...] or relatives? How often do you attend buddhist or 1 to 4 times per year 11/11 jewish services? Do you belong to any clubs or Yes 11/23/2021 organizations such as buddhist groups, unions, fraternal or athletic groups, or [...] have completed or the highest Connie, MEd, TRAVEL NURSE, LORI) degree you have received? Sex Assigned at Date Recorded Female 07/18/2021 2:49 PM CDT documented as of this encounter Last Filed Vital Signs Vital Sign Reading Time Taken Comments Blood Pressure 119/76 12/19/2021 2:54 PM METAL EXTRUSION SUPERVISOR Pulse 100 12/19/2021 2:54 PM METAL EXTRUSION SUPERVISOR Temperature 36.7 ??C (98 ??F) 12/19/2021 2:54 PM METAL EXTRUSION SUPERVISOR Respiratory Rate - - Oxygen Saturation 99% 12/19/2021 2:54 PM METAL EXTRUSION SUPERVISOR Inhaled Oxygen Concentration - - Weight 75.8 kg (167 lb 1.7 oz) 12/19/2021 2:48 PM METAL EXTRUSION SUPERVISOR Height - - Body Mass Index 27.28 07/29/2020 10:03 AM CDT documented in this encounter Progress Notes Jenaro Hassan M.D., Ph.D. - 12/19/2021 3:00 PM CST The patient is here today for US and return visit. She did have one episode of brownish tinged discharge with wiping, no intercourse prior. This has resolved; bleeding precautions given. She is endorsing activity, predominantly on the sides (anterior placenta). US today with appropriate growth. BPP 06/18, MVP is 5.09. Breech presentation (will monitor this). No GI concerns, we did discuss planning for colonoscopy PP. Briefly discussed IOL again, this has not been scheduled. Plan for repeat growth in 4 weeks, surveillance beginning at 37 weeks and plan for delivery at 39-40 weeks given COVID in . Precautions given. rosamaria 12/19/2021 ?? Impression/Report/Plan # IUP at??30-1/7 weeks # Asthma Mild Intermittent (HCC) # Colitis Crohn's (HCC) # COVID In - Test positive 11/07 # High risk # History of abnormal pap smear # Polyp gallbladder # History of hypothyroidism, resolved - refer to Dr. Levine's noted dated Sep 2019?? L EXTRUSION SUPERVISOR documented in this encounter Plan of Treatment Scheduled Referrals Name Type Priority Associated Order Schedule Diagnoses Obstetrics and Outpatient Referral Routine Expect ed: Gynecology office 02/05/2022 , visit (clinic) Expires: 03/18/2023 documented as of this encounter Results US OB Limited and [...] AND BPP WITHOUT NON STRESS Exam Site: [facility] OB #2 Plurality: 1 LMP: 05/21/2021 [place] By LMP: ??37w1d OBHx: [G:(1)] ?F Trm:() Pre:() C-Sec:() Ab-I:( ) Ab-S:() Ect:() Multi:() Angella:() INDICATIONS FOR SONOGRAPHY BPP MEASUREMENTS ??carmina ??wks [+/-] (Melanie sherwood) % ?? COMPUTATIONS GA: ?? 37w0d Method: [...] COMMENTS Biophysical Profile Barrett Barrett intrauterine in [facility] ali presentation. BPP score is 8/ 8. The maximum vertical pocket is 6.2 cm. Preliminary Read by Harika Leo R. D.MJuliaSJulia on 02/05/2022 1:44:04 PM. Executive Chairman Of The Board: ??Harika Leo R.D.M.S . Thank You For This Referral Procedure Note Jonny Scott M.B.B.S., M.D. - 02/05 LAUREL CARABALLO OB Exam, 02/05/2022 EXAM INFORMATION Patient Name: LAUREL CARABALLO : 1995 Age: 27 yrs Sex: Female Ref Phys: JENARO HASSAN Exam Date: 02/05/2022 Procedure: US OB LIMITED AND BPP WITHOUT NON STRESS Exam Site: [facility] OB #2 Plurality: 1 LMP: 05/21/2021GA [...] COMMENTS Biophysical Profile Barrett Barrett intrauterine in [facility] alic presentation. BPP score is 8/ 8. The maximum vertical pocket is 6.2 cm. Preliminary Read by Harika Leo R. D.M.S. on 02/05/2022 1:44:04 PM. Executive Chairman Of The Board: Harika Leo R.D.M.S. Thank You For This Referral Jenaro Hassan M.D., Ph.D. IMG OB US PROCEDURES US OB Follow up and or Growth with BPP without NST (01/18/2022 8:49 AM METAL EXTRUSION SUPERVISOR) Anatomical Region Laterality Modality Body, Ultrasound OB RST LOS, Ultrasound ARZ LOS N/A Ultrasound Specimen (Source) Anatomical Location Collection Method / Collectio n Time Received Time / Laterality Volume Narrative 01/18/2022 8:39 AM METAL EXTRUSION SUPERVISOR LAUREL CARABALLO OB Exam, 01/18/2022 EXAM INFORMATION Patient Name: ??LAUREL CARABALLO : ??1995 Age: ??26 yrs Sex: ??Female Ref Phys: ??JENARO HASSAN Exam Date: 01/18/2022 Procedure: US OB FOLLOW UP WITH BPP W/O NON-STRESS Exam Site: [facility] OB 3 Plurality: 1 LMP: 05/21/2021 [...] by Dru Nicholson on 08/2022 8:30:26 AM. Executive Chairman Of The Board: ??Dru Nicholson Thank You For This Referral Procedure Note Gilberto Vasquez M.D. - 01/18/2022Formattin g of this note might be different from the original. LAUREL CARABALLO OB Exam, 01/18/2022 EXAM INFORMATION Patient Name: LAUREL CARABALLO : 1995 Age: 26 yrs Sex: Female Ref Phys: JENARO HASSAN Exam Date: 01/18/2022 Procedure: US OB FOLLOW UP WITH BPP W/O NON-STRESS Exam Site: [facility] OB 3 Plurality: 1 LMP: 05/21/2021GA [...] by Dru Nicholson on 08/2022 8:30:26 AM. Executive Chairman Of The Board: Dru Nicholson Thank You For This Referral Jenaro Hassan M.D., Ph.D. IMG OB US PROCEDURES documented in this encounter Visit Diagnoses Diagnosis High Risk (HCC) - Primary Personal History Of Infectious And Zenon itic Disease (COVID-19) Polyp Gallbladder Colitis Crohn's (HCC) Asthma Mild Intermittent (HCC) High Risk (HCC) High Risk (HCC) documented in this encounter Additional Health Concerns Assessment Noted Time PHQ-9 Depression Total Score: 4 11/29/2021 10:43 AM CS T documented as of this encounter Care Teams Development Disability Specialist Relationship Specialty Start Date End Date Belkys Marshall, KARL, C.N.P., M.S. PCP - General Family Medicine 11/16/19 [address] [place] [address] documented as of this encounter
--- OUTSIDE RECORDS SUMMARY | 2022-08-31 12:34 | XMS_ITS | Encounter Summary ---
:1995 Author Organization [facility] Address [address] [place] [address] Care Team Providers Name Role Phone Belkys Marshall APRN, C.N.P., M.S. Primary Care Provider [phone] Reason for Visit Reason Comments Leg Pain Encounter Details Date Type Department Care Team Description 01/11/2022 - Emergency [facility] Milad Mayo APRN, C.N.P. [address] [place] [address] Pain Calf Right 01/12/2022 Emergency Department Nereida Powers M.D. [address] [place] [id number] (Primary Dx) [address] [place] [address] Social History Tobacco Use Types Packs/Day Years [...] or relatives? How often do you attend worship or 1 to 4 times per year 11/11 [employer] services? Do you belong to any clubs or Yes 11/23/2021 organizations such as worship groups, unions, fraternal or athletic groups, or [...] have completed or the highest Connie, MEd, SWITCH [employer]EMAN, LORI) degree you have received? Sex Assigned at Date Recorded Female 07/18/2021 2:49 PM CDT documented as of this encounter Last Filed Vital Signs Vital Sign Reading Time Taken Comments Blood Pressure 112/70 01/12/2022 12:40 AM TOSSER Pulse 62 01/12/2022 12:40 AM TOSSER Temperature 36.6 ??C (97.9 ??F) 01/11/2022 6:56 PM TOSSER Respiratory Rate 18 01/12/2022 12:40 AM TOSSER Oxygen Saturation 97% 01/12/2022 12:40 AM TOSSER Inhaled Oxygen Concentration - - Weight 77.2 kg (170 lb 3.1 oz) 01/11/2022 6:55 PM TOSSER Height - - Body Mass Index 27.78 07/29/2020 10:03 AM CDT documented in this encounter Discharge Instructions AttachmentsThe following attachments cannot be sent through Care Everywhere.Leg Cramps (Faroese)documented in this encounter Medications at Time of [...] tablet,chewable Take 3 tablets by 0 022 [id number] 27 mouth daily. mg iron- 1 mg tablet documented as of this encounter ED Notes Nereida Powers M.D. - 01/11/2022 10:28 PM CST I have personally seen and examined this patient. I have fully participated in the care of this patient. I personally performed a substantive portion of the visit including all aspects of medical decision making. I agree with the note of the ORDER DETAILER/PA. IMPRESSION AND PLAN Patient is a pleasant 26-year-old female G1 currently 33 weeks sent to the emergency department for ultrasound positive for DVT in the right calf. The patient is currently recovering from COVID-19 infection. Two days ago she developed pain in the right calf. Ultrasound performed this afternoon at [place] was read as positive for DVT in a mid segment of a duplicated posterior tibial vein. Patient is followed by MFM at [place] and therefore was sent from PCP Clinic at [place] to Emergency Department for further evaluation. We initially consulted OB who requested repeat ultrasound as the images and report from [place] were not available at that time. I was subsequently able to obtain the written report from the patient's phone. This has been uploaded into the patient's chart. Our ultrasound here was read as negative which conflicts with the report from earlier today. I have discussed the ultrasound results with Radiology. They state that it is possible that we could have missed a DVT and request we obtain the imagesfrom [place] so we can determine the location of the DVT seen earlier today. We requested the imaging to be pushed and after significant delay we were able to obtain the images. The Ultrasonographerand Radiologist were able to identify the exact location of the area of concern and repeated the ultrasound at this location. They are confident there is no DVT in the patient's right calf. They suspect that the abnormality visualized earlier today may have been artifact. I have had a long discussion with the patient regarding the risks and benefits of anticoagulation. This is a difficult situation as she has had 1 ultrasound today that was positive for DVT and a 2nd ultrasound that was negative. Our initial plan was to treat for presumed DVT given her reported symptoms and risk factors. However after sending the patient back to Radiology for extensive further imagingand comparing the images obtained to the images from [place], and discussing with Radiology and budget officer that they are confident there is no DVT, I suspect that the initial ultrasound was a false positive due to artifact. I think the chance that the patient had a small DVT that subsequently resolved and is no longer present is unlikely (although not 0%). I recommended that the patient follow-up closely with OB for re-evaluation and consideration of repeat ultrasound if symptoms persist. Irecommend return to the emergency department with any worsening symptoms. DIFFERENTIAL DIAGNOSIS DVT, superficial thrombophlebitis, conflicting radiology reports, muscle cramp I reviewed previous medical records including documentation from previous visits and radiology images/report. I personally reviewed the radiology image(s) and discussed radiology exam(s) with radiologist. The Radiology exam interpretation(s) is/are normal. Case reviewed with other health resident care assistant, including OB, Radiology, US. ED Course as of 01/12/22 0146 Pura Jan 11, 20223 US Lower Extremity Veins Right Ultrasound is negative however I was able to obtain the report from [place] that reads minimal DVT in mid segment of duplicated posterior tibial vein. The common femoral, deep femoral, and superficial femoral veins are compressible. 2225 I have spoken with OB. They are requesting that the radiology surgical consultant read the ultrasound. They are requesting we obtain the images from [place]. 225 Lovenox dosing discussed with pharmacist 2249 I discussed the ultrasound with the budget officer who performed the ultrasound. She states she looked throughout the entire calf and did not notice anything that was not entirely compressible. 2328 Images have finally been pushed from [place]. There are not yet available to be viewed in [facility]. Patient is anxious to go home as she has now been here for 4 hours. I discussed with her the risks, benefits, and alternatives of starting anticoagulation. Given the fact that she has a known DVT on ultrasound performed earlier today with associated symptoms at this location I think it is reasonable to initiate anticoagulation. When the images are available I will request our radiologist to compare them to the ultrasound obtained here to see if we can definitively identify the DVT. Ob is arranging for close follow-up. If no DVT is identified on the outside imaging I will contact the patient and recommend discontinuing the anticoagulation. 2348 Discussed with US Radiology. Patient is agreeable to get another scan. Fri Jan 12, 2022 0020 Spoke with Radiologist, was able to identify same location the outside US had identified the potential DVT. This area was compressible and there were no clot identified. The radiologist favors artifact on the previous ultrasound and does not identify any acute DVT now. Final Diagnoses: as of 01/12/226 Pain Calf Right Nereida Powers M.D. 01/12/226 ER Jemima Mayo APRN, C.N.P. - 01/11/2022 8:02 PM CST SUBJECTIVE CHIEF COMPLAINT/REASON FOR VISIT Leg Pain HISTORY OF PRESENT ILLNESS Patient is a 26 yo female with hx of: Asthma Mild Intermittent (HCC) Colitis Crohn's (HCC) Thyroiditis [facility] Health Adult Polyp Gallbladder Fatigue Abnormal Pap Smear Personal History High Risk Personal History Of Infectious And Parasitic Disease (COVID-19) Who presents to the emergency department as referral from PCP with a right lower leg DVT. Patient is33.5 weeks . She was doctoring in [place] with her PCP for URI type symptoms. She developed some right lower leg calf pain and swelling. This prompted an ultrasound which was completed todayat 4:00 a.m.. She was told by her provider that she has a deep vein thrombosis and was sent to the emergency department for further workup. On arrival she has pain in the right lower calf. She has had no fevers nausea or vomiting. No chest pain or shortness of breath. She has had no abdominal crampingor vaginal bleeding or discharge. REVIEW OF SYSTEMS Constitutional: Negative for fever. HENT: Negative for trouble swallowing. Respiratory: Negative for shortness of breath. Cardiovascular: Negative for chest pain. Gastrointestinal: Negative for abdominal pain and nausea. Genitourinary: Negative for vaginal bleeding. Musculoskeletal: Positive for extremity pain. Negative for neck stiffness. Skin: Negative for rash. Allergic/Immunologic: Positive for immunocompromised state. Neurological: Negative for headaches. Psychiatric/Behavioral: Negative for confusion. OBJECTIVE Initial Vitals Temperature Pulse Rate Heart Rate Resp Rate Blood Pressure SpO2 01/11/22 1856 01/11/22 1910 01/11/22 1856 01/11/22 18501/11/22 18501/11/22 185 36.6 ??C 99 94 16 113/64 97 % Pain Score 01/11/22 1923 4 PHYSICAL EXAMINATION Constitutional: Nursing note and vitals reviewed. She appears well-nourished. She appears not lethargic. HENT: Head: Atraumatic. Mouth/Throat: Oropharynx is clear and moist. Mucous membranes are moist. Eyes: Conjunctivae are normal. Pupils are equal, round, and reactive to light. Right eye exhibits nodischarge. Left eye exhibits no discharge. Neck: Neck supple. No tracheal deviation present. Cardiovascular: Normal rate, regular rhythm and normal heart sounds. Pulses are strong and palpable.Capillary refill: takes less than 3 seconds, Pulmonary/Chest: Effort normal and breath sounds normal. There is normal air entry. No respiratory distress. Abdominal: Soft. exhibits no distension. There is no abdominal tenderness. There is no rebound and no guarding. Musculoskeletal: General: Tenderness and edema present. Normal range of motion. Cervical back: Normal range of motion and neck supple. Comments: Right calf swelling and pain; distally intact. Neurological: Alert and oriented to person, place, and time. Skin: Skin is warm, dry, intact and normal color. No rash noted. Psychiatric: She has a normal mood and affect. Behavior is normal. Judgment normal. ASSESSMENT/PLAN IMPRESSION AND PLAN 1. DVT. Patient is vitally stable well-appearing no acute distress. I am unable to visualize any ultrasound. Contacted Ob recommend repeat imaging. Patient is comfortable with this. Repeat imaging of the right lower leg to be obtained. Refer back to OB for management but I suspect 1 milligram/kilogramof Lovenox with close OB follow-up. Sign-out was given to [facility] follow-up on ultrasound results. I reviewed previous medical records including documentation from previous visits. Case reviewed with other health resident care assistant, including ob. Final Diagnoses: as of 01/11/22 2216 Thrombosis Deep Vein Acute Lower Extremity Right (HCC) Jemima Mayo APRN, C.N.P. 01/11/222005 ER Corey Tran R.N. - 01/11/2022 6:57 PM CST Patient is 33 weeks and has developed rt calf pain for two days and was found to have DVT vis ultrasound by her PCP. Patient here now for further eval. Pain is dull achy 4/10 made worse with ambulation. Corey Tran R.N. 01/11/22 185 ER documented in this encounter Plan of Treatment Not on filedocumented as of this encounter Procedures Procedure Name Priority Date/Time Associated Comments Diagnosis US LOWER RAD - Semiurgent 01/12/2022 12:11 Results for this EXTREMITY VEINS (Fast; most ED AM TOSSER procedure are in RIGHT patients; some the results inpatients) section. US LOWER RAD - Semiurgent 01/11/2022 8:52 Results for this EXTREMITY VEINS (Fast; most ED PM TOSSER procedure are in RIGHT patients; some the results inpatients) section. documented in this encounter Results US Lower Extremity Veins Right (01/12/2022 12:11 AM TOSSER) Anatomical Region Laterality Modality Lower Extremity, Ultrasound RST LOS, Ultrasound ARZ LOS, Rig ht Ultrasound Ultrasound FLA LOS Specimen (Source) Anatomical Collection Method Collection Time Re ceived Time Location / / Volume Laterality 01/12/2022 12:11 AM TOSSER Impressions 01/12/2022 7:48 AM TOSSER The previously described short segment of acute appearing thrombosis in one of the paired posterior tibial veins seen on e outside ultrasound exam was not seen on this dedicated evaluation of the paired posterior tibia l veins. On both [facility] studies, there is no evidence of acute DVT in the calf. Findings discussed with Nereida coley MD (pager #[phone]) at 01/12/2022 12:20 AM. Narrative 01/12/2022 7:48 AM TOSSER EXAM: US LOWER EXTREMITY VEINS RIGHT Exam performed with color and spectral D oppler analysis. COMPARISON: Complete right lower extremi ty venous ultrasound performed earlier [facility] (01/11/2022) as well as the outside ultrasound from [facility] dated 01/11/2022. The outside report as well as the newspaper library manager worksheet for [facility] outside exam have been reviewed, although were unavailable at the time of interpretation of the pre vious [facility] study. FINDINGS: RIGHT: Focused sonographic evaluation fo cusing on the deep veins of the right calf was again performed. Since the prior complete [facility] study, the outside exam report as well as the outside sonographic images were obtained and available for review. Using the landmarks from the previous study to examine the paired rig ht posterior tibial veins, these were thoroughly investigated. The previously noted area of slight expa nsion and noncompressibility seen on the outside study (presumably series 1, images 6400 and 66 56) was not seen on this dedicated examination of the paired posterior tibial veins and may have been artifactual. The short segment noncompressibility was unable to be duplicated and there is no additional findings compatible with acute deep venous thrombosis in the right calf. Procedure Note Elizabet Heller M.D. - 01/12/2022Formatt ing of this note might be different from the original. EXAM: US LOWER EXTREMITY VEINS RIGHT Exam performed with color and spectral D oppler analysis. COMPARISON: Complete right lower extremi ty venous ultrasound performed earlier [facility] (01/11/2022) as well as the outside ultrasound from [facility] dated 01/11/2022. The outside report as well as the newspaper library manager worksheet for th e outside exam have been reviewed, although were unavailable at the time of interpretation of the pre vious [facility] study. FINDINGS: RIGHT: Focused sonographic evaluation fo cusing on the deep veins of the right calf was again performed. Since the prior complete [facility] study, the outside exam report as well as the outside sonographic images were obtained and available for review. Using the landmarks from the previous study to examine the paired rig ht posterior tibial veins, these were thoroughly investigated. The previously noted area of slight expa nsion and noncompressibility seen on the outside study (presumably series 1, images 6400 and 66 56) was not seen on this dedicated examination of the paired posterior tibial veins and may have been artifactual. The short segment noncompressibility was unable to be duplicated and there is no additional findings compatible with acute deep venous thrombosis in the right calf. IMPRESSION: The previously described short segment o f acute appearing thrombosis in one of the paired posterior tibial veins seen on e outside ultrasound exam was not seen on this dedicated evaluation of the paired posterior tibia l veins. On both [facility] studies, there is no evidence of acute DVT in the calf. Findings discussed with Nereida coley MD (pager #[phone]) at 01/12/2022 12:20 AM. Nereida Powers M.D. IMG US PROCEDURES US Lower Extremity Veins Right (01/11/2022 8:52 PM TOSSER) Anatomical Region Laterality Modality Lower Extremity, Ultrasound RST LOS, Ultrasound ARZ LOS, Rig ht Ultrasound Ultrasound FLA [facility] Specimen (Source) Anatomical Collection Method Collection Time Re ceived Time Location / / Volume Laterality 01/11/2022 8:53 PM TOSSER Impressions 01/12/2022 7:35 AM TOSSER Negative for acute DVT. Narrative 01/12/2022 7:35 AM TOSSER EXAM: US LOWER EXTREMITY VEINS RIGHT Exam performed with color and spectral D oppler analysis. COMPARISON: None. FINDINGS: RIGHT: Common Femoral Vein: Negative. Profunda Femoral Vein: Negative. Femoral Vein: Negative. Popliteal Vein: Negative. Gastrocnemius Veins: Negative where seen . Soleal Veins: Negative where seen. Posterior Tibial Veins: Negative where s een. Peroneal Veins: Negative where seen. Great Saphenous Vein: Negative where see n. Small Saphenous Vein: Not evaluated. Popliteal Fossa: Negative. Other: In the patient's reported area of pain in the posterior calf there is no underlying sonographic abnormality. Information on venous thrombosis and man agement can be found on the [employer] site. Link [email or web address] Procedure Note Elizabet Heller M.D. - 01/12/2022Formatt ing of this note might be different from the original. EXAM: US LOWER EXTREMITY VEINS RIGHT Exam performed with color and spectral D oppler analysis. COMPARISON: None. FINDINGS: RIGHT: Common Femoral Vein: Negative. Profunda Femoral Vein: Negative. Femoral Vein: Negative. Popliteal Vein: Negative. Gastrocnemius Veins: Negative where seen . Soleal Veins: Negative where seen. Posterior Tibial Veins: Negative where s een. Peroneal Veins: Negative where seen. Great Saphenous Vein: Negative where see n. Small Saphenous Vein: Not evaluated. Popliteal Fossa: Negative. Other: In the patient's reported area of pain in the posterior calf there is no underlying sonographic abnormality. Information on venous thrombosis and man agement can be found on the [employer] site. Link [email or web address] IMPRESSION: Negative for acute DVT. Jemima Mayo APRN C.N.P. IMG US PROCEDURES documented in this encounter Visit Diagnoses Diagnosis Pain Calf Right - Primary documented in this encounter Active and Recently Administered Medications Additional Health Concerns Assessment Noted Time PHQ-9 Depression Total Score: 4 11/29/2021 10:43 AM CS T documented as of this encounter Care Teams Press And Blow Machine Tender Relationship Specialty Start Date End Date Belkys Marshall APRN, C.N.P., M.S. PCP - General Family Medicine 11/16/[address] [place] [address] documented as of this encounter
--- OUTSIDE RECORDS SUMMARY | 2022-08-31 12:34 | XMS_ITS | Encounter Summary ---
:1995 Author Organization [facility] Address [address] [place] [address] Care Team Providers Name Role Phone Belkys Marshall APRN, C.NVira., M.S. Primary Care Provider +1- [phone] Reason for Referral Outpatient (Routine) - Closed Specialty Diagnoses / Procedures Referred By Contact Refer red To Contact Obstetrics Angela Lugo M.D., [place] Dasia altamirano Gynecology Ph.D. [address] [place] [phone] Referral ID Status Reason Start Date Expiration Date Visits Requ ested Visits Authorized [id number] Closed 02/05/2022 02/05/2023 1 1 Outpatient (Routine) - Closed Specialty Diagnoses / Procedures Referred By Contact Refer red To Contact Obstetrics Angela Lugo M.D., [place] Dasia altamirano Gynecology Ph.D. [address] [place] [phone] Referral ID Status Reason Start Date Expiration Date Visits Requ ested Visits Authorized [id number] Closed 02/05/2022 02/05/2023 1 1 Scheduling Instructions 2 week PP virtual visit Outpatient (Routine) - Closed Specialty Diagnoses / Procedures Referred By Contact Refer red To Contact Diagnoses Lump In The Right Breast Unspecified Quadrant Angela Hassan M.D., Ph.D. [facility] Procedures BI Ultrasound Breast Focused Right [address] [place] [phone] Referral ID Status Reason Start Date Expiration Date Visits Requ ested Visits Authorized [id number] Closed 02/05/2022 02/05/2023 1 1 Reason for Visit Reason Comments Routine Visit Outpatient (Routine) - Closed Specialty Diagnoses / Procedures Referred By Contact Refer red To Contact Obstetrics and Angela Hassan M.D., [facility] Gynecology Ph.D. 200 [place] [address] Referral ID Status Reason Start Date Expiration Date Visits Requ ested Visits Authorized [id number] Closed 12/19/2021 12/19/2022 1 1 Encounter Details Date Type Department Care Team Description 02/05/2022 Routine Department of Angela Hassna, Lump In T he Right Breast Unspecified Quadrant (Primary Dx); Obstetrics and Kasey, Ph.D. Personal History Of Infectious And Zenon itic Disease (COVID-19); Gynecology in [address] [place] [address] High Risk ; [place], [place] Abnormal Pap Smear Personal History; [address] [place] [phone] Colitis Crohn's ([facility]); [place], [place] [phone] Asthma Mild In termittent ([facility]) [phone] (Work) [phone] Social History Tobacco Use Types Packs/Day Years [...] 11/23/2021 organizations such as religion groups, unions, [employer] or athletic groups, or school groups? How [...] place to sleep or slept in a custodial (including now)? Education Answer Date Recorded What is the highest level of school Master's degree (e.g., M A, MS, 11/23/2021 you have completed or the highest Connie, MEd, PUBLIC HEALTH REGISTRAR, LORI) degree you have received? Sex Assigned at Date Recorded Female 07/18/2021 2:49 PM CDT documented as of this encounter Last Filed Vital Signs Vital Sign Reading Time Taken Comments Blood Pressure 112/69 02/05/2022 2:14 PM CDT Pulse 93 02/05/2022 2:14 PM CDT Temperature 36.6 ??C (97.9 ??F) 02/05/2022 2:14 PM CDT Respiratory Rate - - Oxygen Saturation 97% 02/05/2022 2:14 PM CDT Inhaled Oxygen Concentration - - Weight 78.1 kg (172 lb 2.9 oz) 02/05/2022 2:14 PM CDT Height - - Body Mass Index 28.1 07/29/2020 10:03 AM CDT documented in this encounter Progress Notes Angela Hassan M.D., Ph.D. - 02/05/2022 2:30 PM CDT SUBJECTIVE CHIEF COMPLAINT / REASON FOR VISIT Laurel Mcdonald is being seen today for Routine Visit Visit today includes BPP. Estimated Date of Delivery: 02/26/22; Gestational age: 37w0d. No leaking or bleeding, fetus is active. She reports finding a breast lump in the right breast. 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 No family history of breast cancer. She had a maternal great grandmother with ovarian cancer. Estimated Date of Delivery: 02/26/22; Gestational age: 37w0d. OBJECTIVE FHR-A: 133 BPM BPP is 8/8 with MVP of 6.26 Physical examination (Lana Orellana present for examination): There is a palpable mass at the 9:00 position of the areolar area. It is approximately 2cm in greatest dimension, and is mobile. There is tenderness on examination. Exam consistent with benign mass- USordered. ASSESSMENT / PLAN Impression/Report/Plan # IUP at??37-0/7 weeks # Asthma Mild Intermittent (HCC) # Colitis Crohn's (HCC)\ - Patient will contact GI to schedule colonoscopy PP and after - She has remained asymptomatic during . # Breast lump - Exam consistent with fibroadenoma - History of fibroadenoma in right breast, s/p resection - Breast US ordered today. - Contact breast clinic regarding recommendations after US. # COVID In - Test positive 11/07 # High risk # History of abnormal pap smear # Polyp gallbladder # History of hypothyroidism, resolved - refer to Dr. Levine's noted dated Sep 2019?? Mo Robles MD, PhD documented in this encounter Plan of Treatment Scheduled Referrals Name Type Priority Associated Order Schedule Diagnoses Obstetrics and Outpatient Referral Routine Expect ed: Gynecology office 03/07/2022 , visit (clinic) Expires: 05/08/2023 Obstetrics and Outpatient Referral Routine Expect ed: Gynecology office 04/04/2022 , visit (clinic) Expires: 05/08/2023 documented as of this encounter Results (ABNORMAL) BI Ultrasound Breast [...] and 12/30/2015 are submitted for comparison the [facility] ultrasound of 02/12/2022. FINDINGS: ??Outside ultrasound demonstra adele a 1.9 x 2.0 x 1.0cm lobulated hypoechoic mass the right breast at the 9 o'clock position labeled zone 1 consistent with a fibroadenoma. This is slightly larger than the hypoechoic mass identifi ed on the [facility] ultrasound of 02/12/2022. By report this fibroadenoma [...] probably-benign mass. ASSESSMENT: BI-RADS: 0 - Incomplete: Nee d Prior Mammograms for Comparison. Angela Hassan M.D., Ph.D. IMG BI PROCEDURES documented in this encounter Visit Diagnoses Diagnosis Lump In The Right Breast Unspecified Kerwin drdebbie - Primary Personal History Of Infectious And Zenon itic Disease (COVID-19) High Risk (HCC) Abnormal Pap Smear Personal History Colitis Crohn's (HCC) Asthma Mild Intermittent (HCC) Lump In The Right Breast Unspecified Kerwin edgar documented in this encounter Additional Health Concerns Assessment Noted Time PHQ-9 Depression Total Score: 4 11/29/2021 10:43 AM CS T documented as of this encounter Care Teams Appeals Referee Relationship Specialty Start Date End Date Belkys Marshall, KARL, C.N.P., M.S. PCP - General Family Medicine 11/16/19 [address] [place] [address] documented as of this encounter
--- OUTSIDE RECORDS SUMMARY | 2022-08-31 12:34 | XMS_ITS | Encounter Summary ---
:1995 Author Organization [facility] Address [address] [place] [address] Care Team Providers Name Role Phone Belkys Marshall APRN, C.N.P., M.S. Primary Care Provider +1- [phone] Encounter Details Date Type Department Care Team Description 11/14/[address] [facility] Belkys Alejandro APRN, [address] C.N.P., M.S. PORSHA DESOUZA [phone] [facility] [phone] [place] [address] (Wo rk) Social History Tobacco [...] place to sleep or slept in a correction (including now)? Education Answer Date Recorded What [...] Infection Onset Date Last Indicated Resolved Time [id number]: 11/21. Pt meets 11/06/2021 11/08/2021 0 11/21/2021 9:54 AM DRAIN TILER criteria for removal of COVID19 infection . MJW Assessment Noted Time PHQ-9 Depression Total Score: 1 08/01/2021 1:42 PM CDT documented as of this encounter Care Teams Broom Stitcher Relationship Specialty Start Date End Date Belkys Marshall APRN, C.N.P., M.S. PCP - General Family Medicine 11/16/19 [address] [place] [address] documented as of this encounter
--- OUTSIDE RECORDS SUMMARY | 2022-08-31 12:34 | XMS_ITS | Encounter Summary ---
:1995 Author Organization [facility] Address [address] [place] [address] Care Team Providers Name Role Phone Belkys Marshall APRN C.N.P., M.S. Primary Care Provider +1- [phone] Reason for Visit Appointment Request (Routine) - Closed Specialty Diagnoses / Procedures Referred By Contact Refer red To Contact General Internal Diagnoses Monoclonal Antibody Therapy (COVID-19) Medicine Referral ID Status Reason Start Date Expiration Date Visits Requ ested Visits Authorized [id number] Closed 11/08/2021 11/08/2022 1 1 Encounter Details Date Type Department Care Team Description 11/08/2021 Internal E-Consult Division of Devika Holt , Internal Medicine in .[place], [place] 200 [facility] 200 [place] [phone] Social History Tobacco Use Types Packs/Day Years [...] or relatives? How often do you attend taoism or 1 to 4 times per year 11/11 advent services? Do you belong to any clubs or Yes 11/23/2021 organizations such as taoism groups, unions, fraternal or athletic groups, or [...] for the very basics like Not v acrmina hard 11/23/2021 food, housing, medical care, and [...] documented as of this encounter Consult Notes Devika Santos M.D. - 11/08/2021 2:00 PM CST Patient initiated request for Monoclonal Antibody (MAB) Infusion for acute Covid-19 Ms. Mcdonald contacted the Central Appointment Office to request Monoclonal Antibody Infusion for confirmed COVID-19 based on a positive test (PCR or antigen) for COVID-19 that was obtained outside of [facility]. The patient provided the Central Appointment Office with updated information about their health conditions. This information will be used to determine eligibility. The Covid-19 Infection flag in the [place] Chart has been created, and the patient has been added tothe list of patients who will be reviewed for monoclonal antibody therapy eligibility. Due to limited medication and infusion therapy resources, not all eligible patients will be offered MAB. Eligible patients will be reviewed by a regional team who will prioritize patients at highest risk of developing severe complications of COVID-19. Devika Santos M.D. [place] COVID Care Team [facility] and [facility] Which patients with acute COVID-19 are eligible for monoclonal antibody (MAB) therapy? Based on the FDA's Emergency Use Authorization criteria, patients are eligible for Monoclonal Antibody Therapy (MAB) for acute COVID-19 if they have mild to moderate symptoms of COVID-19, have a qualifying health condition, and are within 10 days of symptom onset or of a positive covid test, whichevercomes first. Patients who are asymptomatic, who are hospitalized due to COVID-19, who require oxygentherapy due to COVID-19, or who require an increase in baseline oxygen flow rate due to COVID-19 (inthose on chronic oxygen therapy due to underlying [id number] related comorbidity), are not eligible for MAB. How does [facility] assess eligibility and determine who is offered MAB? [facility] utilizes the COVID Antibody Screening Score (CAST) to identify patients with an eligiblehealth condition. Patients with a CAST of 1 or more have an eligible health condition the FDA's Emergency Use Authorization (EUA). When monoclonal antibody and infusion resources are limited, patients are prioritized for monoclonal antibody therapy based on their Monoclonal Antibody Screening Score (MASS), which correlates with risk for developing severe complications of COVID-19, including hospitalization and . Patients with a Monoclonal Antibody Screening Score of 1 or more have an increased risk of severe complications of COVID-19. What are examples of a qualifying health condition under the FDA's Emergency Use Authorization? https://www.fda.gov/lulhsmdar-upvnbtchxdvn-zsw-response/ojl-bbpvv-ejoqzekhhk-and -policy-framework/ktoyayyst-iki-arnpyzkhtiulc#coviddrugs The FDA's fact sheets for healthcare providers specifies that the following medical conditions or other factors may place adults and pediatric patients (12 to 17 years of age weighing at least 40 kg) at higher risk for progression to severe COVID-19: ??? Older age (for example ?65 years of age) ? ? Obesity or being overweight (for example, adults with BMI >25 kg/m2, or if 12 to 17 years of age, have BMI ?85th percentile for their age and gender based on CDC growth charts, Https://www.cdc.gov/growthcharts/clinical_charts.htm) ? Chronic kidney disease ??? Diabetes ??? Immunosuppressive disease or immunosuppressive treatment ??? Cardiovascular disease (including congenital heart disease) or hypertension ??? Chronic lung diseases (for example, chronic obstructive pulmonary disease, asthma [jmsiajyr-fh-bwjiuq], interstitial lung disease, cystic fibrosis, and pulmonary hypertension) ??? Sickle cell disease ??? Neurodevelopmental disorders (for example, cerebral palsy) or other conditions that confer medical complexity (for example, genetic or metabolic syndromes and severe congenital anomalies) ??? Having a medical-related technological dependence (for example, tracheostomy, gastrostomy, or positive pressure ventilation [not related to COVID 19]) Other medical conditions or factors (for example, race or ethnicity) may also place individual patients at high risk for progression to severe COVID-19, and authorization...under the EUA is not limited to the medical conditions or factors listed above. For additional information on medical conditions and factors associated with increased risk for progression to severe COVID-19, see the CDC website: https://www.cdc.gov/coronavirus/2019-ncov/need- 5extra-precautions/kjkdgm-dozi-xnzmhue-conditions.html. FIGHTER PILOT documented in this encounter Plan of Treatment Not on filedocumented as of this encounter Visit Diagnoses Not on filedocumented in this encounter Additional Health Concerns Infection Onset Date Last Indicated Resolved Time [id number]: 11/21. Pt meets 11/06/2021 11/08/2021 0 11/21/2021 9:54 AM NAV[employer] FIGHTER PILOT criteria for removal of COVID19 infection . MJW Assessment Noted Time PHQ-9 Depression Total Score: 1 08/01/2021 1:42 PM CDT documented as of this encounter Care Teams Public Aid Eligibility Assistant Relationship Specialty Start Date End Date Belkys Marshall APRN, C.N.P., M.S. PCP - General Family Medicine 11/16/19 [address] [place] [address] documented as of this encounter
--- OUTSIDE RECORDS SUMMARY | 2022-08-31 12:34 | XMS_ITS | Encounter Summary ---
:1995 Author Organization [facility] Address [address] [place] [address] Care Team Providers Name Role Phone Belkys Marshall APRN C.NJuliaP., M.S. Primary Care Provider +1- [phone] Encounter Details Date Type Department Care Team Description 11/17/2021 Orders Only Pharmacy Prior Auth RO Belkys Marshall APRN, C.N.P., M.S. [address] [place] [phone] (Wo rk) Social History Tobacco Use Types [...] or relatives? How often do you attend scientologist or 1 to 4 times per year 11/11 gnosticism services? Do you belong to any clubs or Yes 11/23/2021 organizations such as scientologist groups, unions, fraternal or athletic groups, or [...] Infection Onset Date Last Indicated Resolved Time [id number]: 11/21. Pt meets 11/06/2021 11/08/2021 0 11/21/2021 9:54 AM PRINTING SUPPLIES SALES REPRESENTATIVE criteria for removal of COVID19 infection . MJW Assessment Noted Time PHQ-9 Depression Total Score: 1 08/01/2021 1:42 PM CDT documented as of this encounter Care Teams Radial Router Operator Relationship Specialty Start Date End Date Belkys Marshall APRN, C.N.P., M.S. PCP - General Family Medicine 11/16/19 [address] [place] [address] documented as of this encounter
--- OUTSIDE RECORDS SUMMARY | 2022-08-31 12:35 | XMS_ITS | Encounter Summary ---
:1995 Author Organization [facility] Address [address] [place] [address] Care Team Providers Name Role Phone Belkys Marshall APRN C.N.P., M.S. Primary Care Provider +1- [phone] Encounter Details Date Type Department Care Team Description 10/23/2021 Hospital Encounter Department of Jenaro Hassan [facility] Obstetrics and Kasey, Ph.D. Gynecology in [address] [place] [address] [place] [phone] [place], [place] [phone] [address] (Work) [phone] Social History Tobacco Use Types Packs/Day Years [...] for wheezing or shortness of breath. mercaptopurine TAKE 1 TABLET BY MOUTH 180 [...] tablet,chewable Take 3 tablets by 0 022 wcwyymn-Oj-emxy-FA 27 mouth daily. mg iron- 1 mg tablet Stelara 90 mg/mL INJECT 90 MG (ONE 180 mL 2 03/21/2021 1 01/02/2021 injectionIndications: SYRINGE) Crohn's Disease (HCC) SUBCUTANEOUSLY EVERY 8 WEEKS, PLEASE MAKE AN APPOINTMENT TO CONTINUE MEDICATION. documented as of this encounter Plan of Treatment Not on filedocumented as of this encounter Procedures Procedure Name Priority Date/Time Associated Comments Diagnosis US OB FOLLOW-UP RAD - Routine 10/23/2021 11:54 High Risk Results for this AND OR GROWTH (most inpatients AM LOG DATA TECHNICIAN procedure are in GILBERT and all the results outpatients) section. documented in this encounter Results US OB Follow-up and or Growth Gilbert (10/23/2021 11:54 AM LOG DATA TECHNICIAN) Anatomical Region Laterality Modality Body, Ultrasound OB RST LOS, Ultrasound ARZ LOS N/A Ultrasound Specimen (Source) Anatomical Location Collection Method / Collectio n Time Received Time / Laterality Volume Narrative 10/23/2021 12:08 PM LOG DATA TECHNICIAN LAUREL CARABALLO OB Exam, 10/23/2021 EXAM INFORMATION Patient Name: ??LAUREL CARABALLO : ??1995 Age: ??26 yrs Sex: ??Female Ref Phys: ??JENARO HASSAN Exam Date: 10/23/2021 Procedure: US OB FOLLOW-UP AND OR GROWTH GILBERT Exam Site: [facility] OB #[id number] Plurality: 1 OBHx: [G:(1)] ?F Trm:() Pre:() C-Sec:() Ab-I:( ) Ab-S:() Ect:() Multi:() Angella:() INDICATIONS FOR SONOGRAPHY Follow up heart views IMPRESSION Growth Fetus: Live gilbert intrauterine pregn glynn. Presentation: Cephalic. Follow-up anatomy: anatomy survey is complete, with identification of normal heart views, including 4 chamber heart view, RVOT, LVOT, 3VV, 3VT, aortic and ductal arch. Amniotic fluid volume: Normal. Conclusion: Live gilbert intrauterine in cephalic presentation. Normal heart views, completing fet al anatomy survey. Normal amniotic fluid volume. MEASUREMENTS ??carmina ??wks [+/-] (Melanie sherwood) % ?? COMPUTATIONS GA: ?? 22w0d Method: LATONYA LATONYA: 02/26/2022 Sono GA: Method: ?? OBSERVATIONS Amniotic Fluid Fluid Volume: ??Normal MVP: ??2.73 cm Presentation: ?? Cephalic FHR: 129 bpm Preliminary Read by Tiffany Calle R.Jody.M.S. on 10/23/2021 11:54:03 AM. Assistant County Engineer: ??Tiffany Calle R.D. M.S. Thank You For This Referral Procedure Note Regine Cortez M.D. - 10/23/20 21 LAUREL CARABALLO OB Exam, 10/23/2021 EXAM INFORMATION Patient Name: LAUREL CARABALLO : 1995 Age: 26 yrs Sex: Female Ref Phys: JENARO HASSAN Exam Date: 10/23/2021 Procedure: US OB FOLLOW-UP AND OR GROWTH GILBERT Exam Site: [facility] OB #[id number] Plurality: 1 OBHx: [G:(1)] F Trm:() Pre:() C-Sec:() Ab-I:() Ab-S:( ) Ect:() Multi:() Angella:() INDICATIONS FOR SONOGRAPHY Follow up heart views IMPRESSION Growth Fetus: Live gilbert intrauterine pregn glynn. Presentation: Cephalic. Follow-up anatomy: anatomy survey is complete, with identification of normal heart views, including 4 chamber heart view, RVOT, LVOT, 3VV, 3VT, aortic and ductal arch. Amniotic fluid volume: Normal. Conclusion: Live gilbert intrauterine in cephalic presentation. Normal heart views, completing fet al anatomy survey. Normal amniotic fluid volume. MEASUREMENTS carmina wks [+/-] (Range ) % COMPUTATIONS GA: 22w0d Method: LATONYA LATONYA: 02/26/2022 Sono GA: Method: OBSERVATIONS Amniotic Fluid Fluid Volume: Normal MVP: 2.73 cm Presentation: Cephalic FHR: 129 bpm Preliminary Read by Tiffany Calle R.D.M.S. on 10/23/2021 11:54:03 AM. Assistant County Engineer: Tiffany Calle R.D.MJulia SJulia Thank You For This Referral Jenaro Hassan M.D., Ph.D. IMG OB US PROCEDURES documented in this encounter Visit Diagnoses Diagnosis High Risk (HCC) documented in this encounter Additional Health Concerns Assessment Noted Time PHQ-9 Depression Total Score: 1 08/01/2021 1:42 PM CDT documented as of this encounter Care Teams Managed Care Director Relationship Specialty Start Date End Date Belkys Marshall, KARL, C.N.P., M.S. PCP - General Family Medicine 11/16/[address] [place] [phone] documented as of this encounter
--- OUTSIDE RECORDS SUMMARY | 2022-08-31 12:35 | XMS_ITS | Encounter Summary ---
:1995 Author Organization [facility] Address [address] [place] [address] Care Team Providers Name Role Phone Belkys Marshall APRN C.N.P., M.S. Primary Care Provider +1- [phone] Reason for Visit Reason Comments Pre-visit Intake Appointment Request (Routine) - Closed Specialty Diagnoses / Procedures Referred By Contact Refer red To Contact Obstetrics and Diagnoses Examination Test With Positive Result (HCC) Gynecology Referral ID Status Reason Start Date Expiration Date Visits Requ ested Visits Authorized [id number] Closed 07/06/2021 07/06/2022 1 1 Encounter Details Date Type Department Care Team Description 07/13/2021 Clinical Communication Visit Review in Pr e-visit Intake [address] [address] Social History Tobacco Use Types Packs/Day Years Used Date Smoking Tobacco: Never Smokeless Tobacco: Never Alcohol Use Standard Drinks/Week Comments No 0 (1 standard drink = 0.6 oz pure alcoho l) Alcohol Habits Answer Date Recorded How often [...] or relatives? How often do you attend samaritan or 1 to 4 times per year 11/11 temple services? Do you belong to any clubs or Yes 11/23/2021 organizations such as samaritan groups, unions, fraternal or athletic groups, or [...] Diagnoses Not on filedocumented in this encounter Care Teams Top Flavor Attendant Relationship Specialty Start Date End Date Belkys Marshall APRN, C.N.P., M.S. PCP - General Family Medicine 11/16/19 [address] [place] [address] documented as of this encounter
--- OUTSIDE RECORDS SUMMARY | 2022-08-31 12:35 | XMS_ITS | Encounter Summary ---
:1995 Author Organization [facility] Address [address] [place] [address] Care Team Providers Name Role Phone Belkys Marshall APRN, C.N.P., [facility] [place] Primary Care Provider +1- [phone] Encounter Details Date Type Department Care Team Description 07/06/2021 Clinical [facility], [facility] Laverne BARAJAS, [facility], in [place], [place] [address] [place] [address] [place] [phone] Social History Tobacco Use Types Packs/Day Years [...] 1 to 4 times per year 11/11 nondenominational services? Do you belong to any clubs [...] place to sleep or slept in a longterm (including now)? Education Answer Date Recorded What is the highest level of school Bachelor's degree (e.g., BA, AB, 09/27/2019 you have completed or the highest BS) degree you have received? Sex Assigned at Date Recorded Female 07/18/2021 2:49 PM CDT documented as of this encounter Miscellaneous Notes Telephone Encounter - Jaz Richards - 07/06/2021 2:26 PM CDT Please disregard, it looks like this was already taken care of while I was on lunch. Thank you, Lanette Telephone Encounter - Jaz Richards - 07/06/2021 11:21 AM CDT First date of last menstrual period:05/22/2021 Is patient taking vitamins?:Yes Primary Care Provider:Joanna OB Provider: Dr. Burnett Date of OB nurse appointment: 07/21 Date of OBWU: 08/07 1st child Patient does have Chron's disease Thank you, Lanette Please respond to RST ECH BRAD Scheduling pool if necessary Telephone Encounter - Belkys Marshall APRN, C.N.P., M.S. - 07/06/2021 9:47 AM CDT If she chose to be followed for OB care at [place] what provider would she be assigned to? We can then check with that provider to see if they are comfortable managing this or if they prefer she be followedin the OB department. Thanks. Telephone Encounter - Alecia Cruz - 07/06/2021 9:29 AM CDT First date of last menstrual period:05/22/2021 Is patient taking vitamins?:Yes Primary Care Provider:Joanna OB Provider:APRYL Date of OB nurse appointment:NA Date of OBWU:NA Patient does have Chron's disease and wants to know if she needs to do something special. documented in this encounter Plan of Treatment Not on filedocumented as of this encounter Visit Diagnoses Not on filedocumented in this encounter Care Teams Plate Printer Relationship Specialty Start Date End Date Belkys Marshall APRN, C.N.P., M.S. PCP - General Family Medicine 11/16/19 [address] [place] [address] documented as of this encounter
--- OUTSIDE RECORDS SUMMARY | 2022-08-31 12:35 | XMS_ITS | Encounter Summary ---
:1995 Author Organization [facility] Address [address] [place] [address] Care Team Providers Name Role Phone Belkys Marshall APRN C.N.P., M.S. Primary Care Provider +1- [phone] Reason for Visit Reason Comments Communication Encounter Details Date Type Department Care Team Description 07/07/2021 Clinical Communication Department of [facility] mmunication Obstetrics and Provider Gynecology in [place], [place] [address] [place] [phone] Social History Tobacco Use Types Packs/Day Years [...] or relatives? How often do you attend muslim or 1 to 4 times per year 11/11 restorationism services? Do you belong to any clubs or Yes 11/23/2021 organizations such as muslim groups, unions, fraternal or athletic groups, or [...] encounter Miscellaneous Notes Telephone Encounter - Roxanne Olguin RAbdirashid. 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 RN informed patient that the OB Department is not providing work restrictions and was encouraged to talk with her manager transplant and occupational health. Pt states that her manager transplant told her to get lifting restrictions from OB and they would be able to use those to get her relocated during her . Pt encouraged to discusswith her provider during her initial provider appointment as restrictions can not be provided without the patient having established OB care. Pt verbalized understanding and agrees with plan. To call with further questions or concerns. 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 documented in this encounter Plan of Treatment Not on filedocumented as of this encounter Visit Diagnoses Not on filedocumented in this encounter Care Teams Rn Employee Health Relationship Specialty Start Date End Date Belkys Marshall APRN, C.N.P., M.S. PCP - General Family Medicine 11/16/19 [address] [place] [address] documented as of this encounter
--- OUTSIDE RECORDS SUMMARY | 2022-08-31 12:35 | XMS_ITS | Encounter Summary ---
:1995 Author Organization [facility] Address [address] [place] [address] Care Team Providers Name Role Phone Belkys Marshall APRN C.N.P., M.S. Primary Care Provider +1- [phone] Encounter Details Date Type Department Care Team Description 08/22/2021 Lab Department of Laboratory Angela Hassan M. D., Encounter For Supervision Medicine and Pathology, Ph.D. Of Normal First [facility] in [address] [place] [address] [address] [address] [place] [address] [phone] Social History Tobacco Use Types Packs/Day Years [...] Procedure Name Priority Date/Time Associated Diagnosis Comme [facility] Routine 08/22/2021 3:52 PM Encounter For Res ults for this SCREEN CDT Supervision Of procedure are in Normal First the results section. Unspecified Trimester documented in this encounter Results [facility] Screen - Sent Out Lab (08/22/2021 3:52 PM CDT) [facility] Method Time Signature [facility] SEE COMMENT 08/29/2021 ANNIE 9:25 AM CDT Screen Comment: For final report, select Lab-Send Out L ab Results hyperlink below. Specimen Anatomical Collection Method Collection Time Receive d Time (Source) Location / / Volume Laterality Blood (Blood, 08/22/2021 3:52 PM 08/23/20 21 8:39 Venous) CDT AM CDT Narrative [employer] - 08/29/2021 9:25 AM CDT Specimen Information: Specimen ID: [id number] Specimen Type: Blood Specimen Collection Start Date: ??3:52 PM Specimen Received Date: 08/23/2021 ??8: 39 AM Specimen ID: [id number] Specimen Type: Blood Specimen Collection Start Date: ??3:52 PM Angela Hassan M.D., Ph.D. LAB GENETIC TESTING Performing Organization Address City/State/ZIP Code Phon e Number [employer] [address] [place] [address] [address] [place] [place] [address] [place] [address] documented in this encounter Visit Diagnoses Diagnosis Encounter For Supervision Of Normal Firs t Unspecified Trimester (HCC) documented in this encounter Additional Health Concerns Assessment Noted Time PHQ-9 Depression Total Score: 1 08/01/2021 1:42 PM CDT documented as of this encounter Care Teams Roving Machine Operator Relationship Specialty Start Date End Date Belkys Marshall APRN, C.N.P., M.S. PCP - General Family Medicine 11/16/19 [address] [place] [address] documented as of this encounter
--- OUTSIDE RECORDS SUMMARY | 2022-08-31 12:35 | XMS_ITS | Encounter Summary ---
:1995 Author Organization [facility] Address [address] [place] [address] Care Team Providers Name Role Phone Belkys Marshall APRN, C.N.Mame., M.S. Primary Care Provider +1- [phone] Reason for Referral Outpatient (Routine) - Closed Specialty Diagnoses / Procedures Referred By Contact Refer red To Contact Obstetrics Jenaro Lugo M.D., [facility]necology Ph.D. [address] [place] [phone] Referral ID Status Reason Start Date Expiration Date Visits Requ ested Visits Authorized [id number] Closed 10/23/2021 10/23/2022 1 1 RING MACHINE OPERATOR HELPER Reason for Visit Reason Comments Routine Visit Outpatient (Routine) - Closed Specialty Diagnoses / Procedures Referred By Contact Refer red To Contact Jenaro Slaughter M.D., [facility] Gynecology Ph.D. [address] [place] [phone] Referral ID Status Reason Start Date Expiration Date Visits Requ ested Visits Authorized [id number] Closed 10/03/2021 10/03/2022 1 1 Encounter Details Date Type Department Care Team Description 10/23/2021 Routine Department of Jenaro Hassan, High Risk (Primary Dx); Obstetrics and M.Jody., Ph.D. Colitis Crohn's (HCC) Gynecology in [address] [place], [place] 200 [facility] [address] [place], [place] [phone] (Work) [phone] Social History Tobacco Use Types Packs/Day Years [...] 1 to 4 times per year 11/11 sabianism services? Do you belong to any clubs [...] Reading Time Taken Comments Blood Pressure 104/67 10/23/2021 2:04 PM COVERING MACHINE OPERATOR HELPER Pulse 91 10/23/2021 2:04 PM COVERING MACHINE OPERATOR HELPER Temperature 36.9 ??C (98.5 ??F) 10/23/2021 2:04 PM COVERING MACHINE OPERATOR HELPER Respiratory Rate - - Oxygen Saturation 97% 10/23/2021 2:04 PM COVERING MACHINE OPERATOR HELPER Inhaled Oxygen Concentration - - Weight 70.2 kg (154 lb 12.2 oz) 10/23/2021 1:57 PM COVERING MACHINE OPERATOR HELPER Height - - Body Mass Index 25.26 07/29/2020 10:03 AM CDT documented in this encounter Progress Notes Brenna Steven - 10/23/2021 2:00 PM CST RING MACHINE OPERATOR HELPER Jenaro Hassan M.D., Ph.D. - 10/23/2021 2:00 PM CST The patient is here today for repeat US (heart views). She is accompanied by her mother. She is doing well. Not consistently feeling activity yet. No leaking or bleeding. US today with adequate heart views, and now complete. No GI concerns. She is scheduled for labs with glucose testing third week of November. We will also plan for repeat growth in 4 weeks. She has travel plans this month; travel precautions given. Patient has declined doppler today. General precautions given. rosamaria 10/23/2021 Impression/Report/Plan # IUP at 22-0/7 weeks # Asthma Mild Intermittent (HCC) # Colitis Crohn's (HCC) # High risk # History of abnormal pap smear # Polyp gallbladder # History of hypothyroidism, resolved - refer to Dr. Levine's noted dated Sep 2019 RING MACHINE OPERATOR HELPER documented in this encounter Plan of Treatment Scheduled Referrals Name Type Priority Associated Order Schedule Diagnoses Obstetrics and Outpatient Referral Routine Expect ed: Gynecology office 12/19/2021 , visit (clinic) Expires: 01/21/2023 documented as of this encounter Results US OB Follow up and or Growth with BPP without NST (12/19/2021 2:34 PM COVERING MACHINE OPERATOR HELPER) Anatomical Region Laterality Modality Body, Ultrasound OB RST LOS, Ultrasound ARZ LOS N/A Ultrasound Specimen (Source) Anatomical Location Collection Method / Collectio n Time Received Time / Laterality Volume Narrative 12/19/2021 4:36 PM COVERING MACHINE OPERATOR HELPER LAUREL CARABALLO OB Exam, 12/19/2021 EXAM INFORMATION Patient Name: ??LAUREL CARABALLO : ??1995 Age: ??26 yrs Sex: ??Female Ref Phys: ??JENARO HASSAN Exam Date: 12/19/2021 Procedure: US OB FOLLOW UP WITH BPP W/O NON-STRESS Exam Site: [facility] Plurality: 1 OBHx: [G:(1)] ?F [...] = 06/18 Preliminary Read by Ruchi Morales [ US] on 12/19/2021 2:36:58 PM. Operation Agent: ??Ruchi Morales [RO U S] Thank You For This Referral Procedure Note Asad Cox M.D. - 12/19/2021Form atting of this note might be different from the original. LAUREL CARABALLO OB Exam, 12/19/2021 EXAM INFORMATION Patient Name: LAUREL CARABALLO : 1995 Age: 26 yrs Sex: Female Ref Phys: JENARO HASSAN Exam Date: 12/19/2021 Procedure: US OB FOLLOW UP WITH BPP W/O NON-STRESS Exam Site: [facility]5 Plurality: 1 OBHx: [G:(1)] F [...] = 8/8 Preliminary Read by Ruchi Morales [MARGUERITE VALDERRAMA] on 12/19/2021 2:36:58 PM. Operation Agent: Ruchi Morales [MARGUERITE VALDERRAMA] Thank You For This Referral Jenaro Hassan M.D., Ph.D. IMG OB US PROCEDURES documented in this encounter Visit Diagnoses Diagnosis High Risk (HCC) - Primary Colitis Crohn's (HCC) High Risk (HCC) Colitis Crohn's (HCC) documented in this encounter Additional Health Concerns Assessment Noted Time PHQ-9 Depression Total Score: 1 08/01/2021 1:42 PM CDT documented as of this encounter Care Teams Stylist Assistant Relationship Specialty Start Date End Date Belkys Marshall APRN, C.N.P., M.S. PCP - General Family Medicine 11/16/19 [address] [place] [address] documented as of this encounter
--- OUTSIDE RECORDS SUMMARY | 2022-08-31 12:35 | XMS_ITS | Encounter Summary ---
:1995 Author Organization [facility] Address [address] [place] [address] Care Team Providers Name Role Phone Belkys Marshall APRN, C.N.P., M.S. Primary Care Provider +1- [phone] Reason for Visit Outpatient (Routine) - Closed Specialty Diagnoses / Procedures Referred By Contact Refer red To Contact Video Medicine Diagnoses Colitis Crohn's (HCC) [facility] Todd MartinezB.B.S. [address] [place] [address] [phone] Referral ID Status Reason Start Date Expiration Date Visits Requ ested Visits Authorized [id number] Closed 03/22/2021 03/22/2022 1 1 Encounter Details Date Type Department Care Team Description 06/20/2021 Telemedicine Division of Lucinda, Colitis Crohn 's (HCC) Gastroenterology in [place], [place] M.B.B.S. [address] [facility] [address] [place] [address] [place], [place] [phone] Social History Tobacco Use Types Packs/Day Years [...] documented as of this encounter Progress Notes Juan Jane M.B.B.S. 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 1. Crohn colitis 2. Chronic immunosuppression 3. Gallbladder polyp ?? After initial diagnosis in 2016, she was initially treated with infliximab, and then adalimumab, butdeveloped antibodies to both. Was switched to Ustekinumab in October 2018, and was last assessed bycolonoscopy in July 2018, and and MR enterography in January 2019 which suggested remission Last colonoscopy was April 2020 at which time there was very focal mild colitis in the transverse colon Symptoms perkins, she has been doing well since then Last dose of Stelara was about 4 weeks ago She also met with our IBD pharmacist to discuss pre conception counseling. Recommended stopping nortriptyline and Zofran, which she has done It has been over a year since he got objective evaluation of disease activity. Therefore will repeatlabs, and a colonoscopy. Will also include ustekinumab trough levels, for TDM We have also been following up gallbladder polyp, with MRI in September 30, and ultrasound in March 01, where it was stable. Therefore, would repeat an ultrasound to was the end of this year Multiple questions answered, she is in agreement Josie BellS. documented in this encounter Plan of Treatment Not on filedocumented as of this encounter Results Ustekinumab Quantitation with Antibodies (07/05/2021 7:31 AM CDT) [facility] Method Time Signature Ustekinumab QN, 4.9 Lower limit of 07/06/2021 [facility] S quantitation = 12:07 PM CDT 0.3 mcg/mL mcg/mL Comment: ----ADDITIONAL INFORMATION---- This test was developed and its performa nce characteristics determined by [facility] in a manner co nsistent with CLIA requirements. This test has not bee n cleared or approved by the U.S. Food and Drug Admin istration. Ustekinumab Ab, S <10 <10 AU/mL 07/06/2021 12:30 PM CD T SDS Comment: Absence of detectable lhbphduh-vw-zakzrg numab. ----ADDITIONAL INFORMATION---- This test was developed and its performa nce characteristics determined by [facility] in a manner co nsistent with CLIA requirements. This test has not bee n cleared or approved by the U.S. Food and Drug Admin istration. Specimen Anatomical Collection Method Collection Time Receive d Time (Source) Location / / Volume Laterality Blood (Blood, 07/05/2021 7:31 AM 07/05/20 Venous) CDT 12:26 PM CDT Juan GalindoSJulia LAB BLOOD ADD-ON Performing Organization Address City/[facility] Phon e Number [facility] [address] [place], [place] [address] [place] [address] CENTER [facility] [place] [address] Laboratory Medicine and Pathology [address] [place] Prothrombin Time (PT) (07/05/2021 7:31 AM CDT) athologist Signature Prothrombin 11.6 9.4 - 12.5 07/05/2021 DTL Time, P sec 8:03 AM CDT INR 1.1 0.9 - 1.1 07/05/2021 DTL 8:03 AM CDT Comment: ----ADDITIONAL INFORMATION---- Standard intensity warfarin therapeutic range: 2.0 to 3.0 ?? High intensity warfarin therapeutic rang e: 2.5 to 3.5 Specimen Anatomical Collection Method Collection Time Receive d Time (Source) Location / / Volume Laterality Blood (Blood, 07/05/2021 7:31 AM 07/05/20 7:40 Venous) CDT AM CDT Juan GalindoSJulia LAB BLOOD ADD-ON Performing Organization Address City/[facility] Code Phon e Number [facility]IES - [address] [place], [place] [address] [facility] [place] [address] [facility] [address] (ABNORMAL) Vitamin A and Vitamin E (07/05/2021 7:31 AM CDT) athologist Signature Vitamin A 29.6 (L) 32.5 - 78.0 07/06/2021 [facility] mcg/dL 2:29 PM CDT Comment: ----ADDITIONAL INFORMATION---- This test was developed and its performa nce characteristics determined by [facility] in a manner consistent with CLIA requirements. This test has not been cleared or approved by the U.[place]. [facility] d and Drug Administration. A-Tocopherol, Vitamin E 5.2 (L) 5.5 - 17.0 mg/L 07/07/2021 7:03 AM CDT [facility] Specimen Anatomical Collection Method Collection Time Receive d Time (Source) Location / / Volume Laterality Blood (Blood, 07/05/2021 7:31 AM 07/05/20 4:48 Venous) CDT PM CDT Juan Link.S. LAB BLOOD NON ADD-ON Performing Organization Address City/[facility] Code Phon e Number [facility] [address] [place], [place] [address] [facility] [place] [address] Laboratory Medicine and Pathology [address] [place] Vitamin B12 Assay (07/05/2021 7:31 AM CDT) athologist Signature Vitamin B12 218 180 - 914 07/05/2021 DT Assay, S ng/L 8:50 AM CDT Comment: ----ADDITIONAL INFORMATION---- In patients being evaluated for vitamin B12 deficiency who have intrinsic factor blocking antibodie s (IFBA), false elevations of B12 may occur due to IFBA interference thus potentially obscuring a physiological de ficiency of B12. If observed B12 concentrations are disco rdant with clinical presentation, measurement of methylmalon ic acid (MMA) should be considered. Specimen Anatomical Collection Method Collection Time Receive d Time (Source) Location / / Volume Laterality Blood (Blood, 07/05/2021 7:31 AM 07/05/20 7:40 Venous) CDT AM CDT Juan GalindoS. LAB BLOOD ADD-ON Performing Organization Address City/[facility] Phon e Number [facility] - [address] [place], [place] [address] [facility] [place] [address] [facility] [address] Folate (07/05/2021 7:31 AM CDT) athologist Signature Folate, S 10.7 >=4.0 mcg/L 07/05/2021 8:49 DTL AM CDT Specimen Anatomical Collection Method Collection Time Receive d Time (Source) Location / / Volume Laterality Blood (Blood, 07/05/2021 7:31 AM 07/05/20 7:40 Venous) CDT AM CDT Juan RicoB.S. LAB BLOOD ADD-ON Performing Organization Address City/[facility] Phon e Number [facility] - 200 [place], [place] [address] [facility] [place] [address] [address] Ferritin (07/05/2021 7:31 AM CDT) athologist Signature Ferritin, S 23 11 - 307 07/05/2021 DTL mcg/L 8:43 AM CDT Specimen Anatomical Collection Method Collection Time Receive d Time (Source) Location / / Volume Laterality Blood (Blood, 07/05/2021 7:31 AM 07/05/20 7:40 Venous) CDT AM CDT Juan RicoB.S. LAB BLOOD ADD-ON Performing Organization Address City/[facility] Phon e Number [facility] - [address] [place] [address] [place] [address] [address] 25-Hydroxyvitamin D2 and D3 (07/05/2021 7:31 AM CDT) P athologist Signature 25-Hydroxy D2 <4.0 ng/mL 07/05/2021 [facility]SC 7:54 PM CDT 25-Hydroxy D3 37 ng/mL 07/05/2021 [facility] 7:54 PM CDT 25-Hydroxy D 37 ng/mL 07/05/2021 [facility] Total 7:54 PM CDT Comment: ----REFERENCE VALUE---- 25-HYDROXY D TOTAL (D2+D3) Optimum level s in the healthy population are 20-50, patients with bone disease may benefit from higher levels within this r presley. ----ADDITIONAL INFORMATION---- This test was developed and its performa nce characteristics determined by [facility] in a manner consistent with CLIA requirements. This test has not been cleared or approved by the U.S. [facility] d and Drug Administration. Specimen Anatomical Collection Method Collection Time Receive d Time (Source) Location / / Volume Laterality Blood (Blood, 07/05/2021 7:31 AM 07/05/20 Venous) CDT 10:37 AM CDT Juan GalindoSJulia LAB BLOOD ADD-ON Performing Organization Address City/[facility] Phon e Number [facility] [address] [place], [place] [address] [facility] [place] [address] Laboratory Medicine and Pathology [address] [place] Hepatic Function Panel (07/05/2021 7:31 AM CDT) [facility] gist Method Time Signature Bilirubin, Total, S 0.4 <=1.2 07/05/2021 DTL mg/dL 8:26 AM CDT Bilirubin, Direct, S <0.2 0.0 - 0.3 07/05/2021 DTL mg/dL 8:26 AM CDT Aspartate 17 8 - 43 07/05/2021 DTL Aminotransferase U/L 8:26 AM CDT (AST), S Alanine 7 7 - 45 07/05/2021 DTL Aminotransferase U/L 8:26 AM CDT (ALT), S Alkaline 46 35 - 104 07/05/2021 DTL Phosphatase, S U/L 8:26 AM CDT Albumin, S 5.0 3.5 - 5.0 07/05/2021 DTL g/dL 8:26 AM CDT Protein, Total, S 7.1 6.3 - 7.9 07/05/2021 DTL g/dL 8:26 AM CDT Specimen Anatomical Collection Method Collection Time Receive d Time (Source) Location / / Volume Laterality Blood (Blood, 07/05/2021 7:31 AM 07/05/20 7:40 Venous) CDT AM CDT Juan GalindoS. LAB BLOOD ADD-ON Performing Organization Address City/[facility] Phon e Number [facility] - [address] [place], [place] [address] [facility] [place] [address] [facility] [address] (ABNORMAL) CBC with Differential, Blood (07/05/2021 7:31 AM CDT) [facility] Method Time Signature Hemoglobin 13.3 11.6 - 07/05/2021 DTL 15.0 g/dL 8:00 AM CDT Hematocrit 39.2 35.5 - 07/05/2021 DTL 44.9 % 8:00 AM CDT Erythrocytes 4.12 3.92 - 07/05/2021 DTL 5.13 8:00 AM CDT x10(12)/L MCV 95.1 78.2 - 07/05/2021 DTL 97.9 fL 8:00 AM CDT RBC Distrib Width 12.1 (L) 12.2 - 07/05/2021 DTL 16.1 % 8:00 AM CDT Platelet Count 320 157 - 371 07/05/2021 DTL x10(9)/L 8:00 AM CDT Leukocytes 10.0 (H) 3.4 - 9.6 07/05/2021 DTL x10(9)/L 8:00 AM CDT Neutrophils 5.99 1.56 - 07/05/2021 DTL 6.45 8:00 AM CDT x10(9)/L Lymphocytes 2.85 0.95 - 07/05/2021 DTL 3.07 8:00 AM CDT x10(9)/L Monocytes 0.87 (H) 0.26 - 07/05/2021 DTL 0.81 8:00 AM CDT x10(9)/L Eosinophils 0.19 0.03 - 07/05/2021 DTL 0.48 8:00 AM CDT x10(9)/L Basophils 0.08 0.01 - 07/05/2021 DTL 0.08 8:00 AM CDT x10(9)/L Specimen Anatomical Collection Method Collection Time Receive d Time (Source) Location / / Volume Laterality Blood (Blood, 07/05/2021 7:31 AM 07/05/20 7:40 Venous) CDT AM CDT Juan Jama LAB BLOOD ADD-ON Performing Organization Address City/State/ZIP Code Phon e Number [facility] - 200 [place], [place] [address] [facility] [place] [place] [address] [facility] 200 [facility] Basic Metabolic Panel (07/05/2021 7:31 AM CDT) P athologist Signature Potassium, S 3.9 3.6 - 5.2 07/05/2021 DTL mmol/L 8:26 AM CDT Sodium, S 139 135 - 145 07/05/2021 DTL mmol/L 8:26 AM CDT Chloride, S 103 98 - 107 07/05/2021 DTL mmol/L 8:26 AM CDT Bicarbonate, S 26 22 - 29 07/05/2021 DTL mmol/L 8:26 AM CDT Anion Gap 10 7 - 15 07/05/2021 DTL 8:26 AM CDT BUN (Blood Urea 7 6 - 21 07/05/2021 DTL Nitrogen), S mg/dL 8:26 AM CDT Creatinine 0.81 0.59 - 07/05/2021 DTL 1.04 mg/dL 8:26 AM CDT eGFR-Non >90 >=60 07/05/2021 DTL Black/ mL/min/BSA 8:26 AM CDT Burmese Comment: ----ADDITIONAL INFORMATION---- Estimated GFR calculated using the 2009 CKD_EPI creatinine equation. eGFR-Black/ >90 >=60 mL/min/BSA 2020 8:26 AM CDT DTL Comment: ----ADDITIONAL INFORMATION---- Estimated GFR calculated using the 2009 CKD_EPI creatinine equation. Calcium, Total, S 9.8 8.6 - 10.0 mg/dL 07/05/2021 8:26 AM CDT DTL Glucose, S 84 70 - 140 mg/dL 07/05/2021 8:26 AM CDT D TL Specimen Anatomical Collection Method Collection Time Receive d Time (Source) Location / / Volume Laterality Blood (Blood, 07/05/2021 7:31 AM 07/05/20 7:40 Venous) CDT AM CDT Juan Jama LAB BLOOD ADD-ON Performing Organization Address City/State/ZIP Code Phon e Number [facility] - [address] [place], [place] [address] [facility] [place] [address] [facility] 200 [facility] documented in this encounter Visit Diagnoses Diagnosis Colitis Crohn's (HCC) documented in this encounter Care Teams Recovery Engineer Relationship Specialty Start Date End Date Belkys Marshall APRN, C.N.P., M.S. PCP - General Family Medicine 11/16/[address] [place] [address] documented as of this encounter
--- OUTSIDE RECORDS SUMMARY | 2022-08-31 12:35 | XMS_ITS | Encounter Summary ---
:1995 Author Organization [facility] Address [address] [place] [address] Care Team Providers Name Role Phone Belkys Marshall APRN, C.N.Mame., M.S. Primary Care Provider +1- [phone] Encounter Details Date Type Department Care Team Description 07/07/2021 Clinical Communication Department of Prescheduling, Obstetrics and Provider Gynecology in [place], [place] [address] [place] [id number] Social History Tobacco Use Types Packs/Day Years [...] or relatives? How often do you attend episcopal or 1 to 4 times per year 11/11 adventism services? Do you belong to any clubs or Yes 11/23/2021 organizations such as episcopal groups, unions, fraternal or athletic groups, or [...] on filedocumented in this encounter Care Teams Winemaker Relationship Specialty Start Date End Date Belkys Marshall APRN, C.N.P., M.S. PCP - General Family Medicine 11/16/19 [address] [place] [address] documented as of this encounter
--- OUTSIDE RECORDS SUMMARY | 2022-08-31 12:35 | XMS_ITS | Encounter Summary ---
:1995 Author Organization [facility] Address [address] [place] [address] Care Team Providers Name Role Phone Belkys Marshall APRN, C.N.P., M.S. Primary Care Provider +1- [phone] Encounter Details Date Type Department Care Team Description 08/01/2021 Hospital Encounter Department of Edgard Brown High [employer] isk Obstetrics and ELVIN BARAJAS Gynecology in [address] [place] [address] [address] [place] [address] [phone] Social History Tobacco Use Types Packs/Day Years [...] or relatives? How often do you attend adventist or 1 to 4 times per year 11/11 mandaeism services? Do you belong to any clubs or Yes 11/23/2021 organizations such as adventist groups, unions, fraternal or athletic groups, or [...] pay for the very basics like Not jan carmina hard 11/23/2021 food, housing, medical care, [...] place to sleep or slept in a senior care (including now)? Education Answer Date Recorded What [...] 1 tablet (1,000 90 tablet 0 07/08/2021 (vitamin B-12) 1,000 mcg total) by mouth mcg tablet daily. cholecalciferol, Take 1 tablet (25 mcg 90 tablet 0 07/08/20 21 10/06/2021 vitamin D3, total) by mouth daily. (cholecalciferol) 25 mcg (1,000 Unit) tablet vitamin A 2,400 mcg Take 1 capsule (2,400 90 capsule 0 07/0810/06/2021 (8,000 Unit) capsule mcg total) by mouth daily. vitamin E 400 Unit Take 1 capsule (400 90 capsule 0 07/08/20 21 10/06/2021 capsule Units total) by mouth daily. mercaptopurine TAKE 1 TABLET BY MOUTH 180 [...] tablet,chewable Take 3 tablets by 0 022 dkyzlve-Lu-iwoj-FA 27 mouth daily. mg iron- 1 mg tablet Stelara 90 mg/mL INJECT 90 MG (ONE 180 mL 2 03/21/2021 1 01/02/2021 injectionIndications: SYRINGE) Crohn's Disease (HCC) SUBCUTANEOUSLY EVERY 8 WEEKS, PLEASE MAKE AN APPOINTMENT TO CONTINUE MEDICATION. documented as of this encounter Plan of Treatment Not on filedocumented as of this encounter Procedures Procedure Name Priority Date/Time Associated Comments Diagnosis US OB FIRST RAD - Routine 08/01/2021 1:41 High Risk Results for this TRIMESTER (most inpatients PM CDT procedure a re in and all the results outpatients) section. documented in this encounter Results US OB First Trimester (08/01/2021 1:41 PM CDT) Anatomical Region Laterality Modality Body, Ultrasound OB RST LOS, Ultrasound ARZ LOS N/A Ultrasound Specimen (Source) Anatomical Location Collection Method / Collectio n Time Received Time / Laterality Volume Narrative 08/01/2021 1:45 PM CDT LAUREL CARABALLO OB Exam, 08/01/2021 EXAM INFORMATION Patient Name: ??LAUREL CARABALLO : ??1995 Age: ??26 yrs Sex: ??Female Ref Phys: ??EDGARD BROWN Exam Date: 08/01/2021 Procedure: US OB FIRST TRIMESTER Exam Site: [facility] OB #5 Plurality: 1 OBHx: [G:(1)] ?F Trm:() Pre:() C-Sec:() Ab-I:( ) Ab-S:() Ect:() Multi:() Angella:() INDICATIONS FOR SONOGRAPHY dating and viability IMPRESSION Gilbert intrauterine . LATONYA es tablished by LMP consistent with crown-rump length measurement today (9 4/7 weeks). Bilateral ovaries appear normal. MEASUREMENTS ??carmina ??wks [+/-] (R presley) % ?? CRL: 2.74 cm ?? 9w4d ? COMPUTATIONS GA: ?? 10w1d Method: LATONYA LATONYA: 02/26/2022 Sono GA: 9w4d Method: ?? Average OBSERVATIONS Size: ?? Normal for dates FHR: 173 bpm COMMENTS Transabdominal ultrasound was performed. Early gilbert ??OB Single IUP. cardiac activity is vi sualized. heart rate is 173 BPM. Yolk sac is visualized. [place] rump length measures 27.4 mm. Both ovaries were visualized and appear normal. Preliminary Read by Martha Calle R .D.M.S. [MARGUERITE] on 08/01/2021 1:41:41 PM. Clean In Places Operator: ??Martha Calle R.D.M. S. [MARGUERITE] Thank You For This Referral Procedure Note Gilberto Vasquez M.D. - 08/01/2021Formattin g of this note might be different from the original. LAUREL CARABALLO OB Exam, 08/01/2021 EXAM INFORMATION Patient Name: LAUREL CARABALLO : 1995 Age: 26 yrs Sex: Female Ref Phys: EDGARD Mcnamara FREDYMelanie Exam Date: 08/01/2021 Procedure: US OB FIRST TRIMESTER Exam Site: [facility] OB #5 Plurality: 1 OBHx: [G:(1)] F Trm:() Pre:() C-Sec:() Ab-I:() Ab-S:( ) Ect:() Multi:() Angella:() INDICATIONS FOR SONOGRAPHY dating and viability IMPRESSION Gilbert intrauterine . LATONYA es tablished by LMP consistent with crown-rump length measurement today (9 4 weeks). Bilateral ovaries appear normal. MEASUREMENTS carmina wks [+/-] (Range ) % CRL:2.74 cm 9w4d COMPUTATIONS GA: 10w1d Method: LATONYA LATONYA: 02/26/2022 Sono GA: 9w4d Method: Average OBSERVATIONS Size: Normal for dates FHR: 173 bpm COMMENTS Transabdominal ultrasound was performed. Early gilbert OB Single IUP. cardiac activity is vi sualized. heart rate is 173 BPM. Yolk sac is visualized. [place] rump length measures 27.4 mm. Both ovaries were visualized and appear normal. Preliminary Read by Martha Calle R .D.M.S. [RO] on 08/01/2021 1:41:41 PM. Clean In Places Operator: Martha Calle R.D.M.S. [RO] Thank You For This Referral Edgard Brown APRN, ELVIN IMMinerva OB US PROCEDURES documented in this encounter Visit Diagnoses Diagnosis High Risk (HCC) documented in this encounter Additional Health Concerns Assessment Noted Time PHQ-9 Depression Total Score: 1 08/01/2021 1:42 PM CDT documented as of this encounter Care Teams Product Development Actuary Relationship Specialty Start Date End Date Belkys Marshall APRN, C.N.P., M.S. PCP - General Family Medicine 11/16/19 [address] [place] [address] documented as of this encounter
--- OUTSIDE RECORDS SUMMARY | 2022-08-31 12:35 | XMS_ITS | Encounter Summary ---
:1995 Author Organization [facility] Address [address] [place] [address] Care Team Providers Name Role Phone Belkys Marshall APRN, C.N.P., M.S. Primary Care Provider +1- [phone] Reason for Referral Outpatient (Routine) - Closed Specialty Diagnoses / Procedures Referred By Contact Refer red To Contact Obstetrics Jenaro Lugo M.D., [place] Dasia altamirano Gynecology Ph.D. [address] [place] [phone] Referral ID Status Reason Start Date Expiration Date Visits Requ ested Visits Authorized [id number] Closed 10/03/2021 10/03/2022 1 1 UCTION SORTER Outpatient (Routine) - Closed Specialty Diagnoses / Procedures Referred By Contact Refer red To Contact Obstetrics Jenaro Lguo M.D., [place] Dasia altamirano Gynecology Ph.D. [address] [place] [phone] Referral ID Status Reason Start Date Expiration Date Visits Requ ested Visits Authorized [id number] Closed 10/03/2021 10/03/2022 1 1 UCTION SORTER Reason for Visit Outpatient (Routine) - Closed Specialty Diagnoses / Procedures Referred By Contact Refer red To Contact Obstetrics and Shiela Romo, [facility] Gynecology Laverne BARAJAS, M.S.N. [address] [place] [phone] Referral ID Status Reason Start Date Expiration Date Visits Requ ested Visits Authorized [id number] Closed 08/01/2021 08/01/2022 1 1 Encounter Details Date Type Department Care Team Description 10/03/2021 Routine Department of Jenaro Hassan, High Risk (Primary Dx); Obstetrics and [place], Ph.D. Colitis Crohn's (HCC) Gynecology in [address] [place] [address] [place] [phone] [place], [place] [phone] (Work) [phone] Social History Tobacco Use Types Packs/Day Years [...] or relatives? How often do you attend protestant or 1 to 4 times per year 11/11 methodist services? Do you belong to any clubs or Yes 11/23/2021 organizations such as protestant groups, unions, fraternal or athletic groups, or [...] Sign Reading Time Taken Comments Blood Pressure 103/67 10/03/2021 12:57 PM PRODUCTION SORTER Pulse 88 10/03/2021 12:57 PM PRODUCTION SORTER Temperature 37 ??C (98.6 ??F) 10/03/2021 12:57 PM PRODUCTION SORTER Respiratory Rate - - Oxygen Saturation 97% 10/03/2021 12:57 PM PRODUCTION SORTER Inhaled Oxygen Concentration - - Weight 67.7 kg (149 lb 4 oz) 10/03/2021 12:57 PM PRODUCTION SORTER Height - - Body Mass Index 24.36 07/29/2020 10:03 AM CDT documented in this encounter Progress Jenaro Castillo M.D., Ph.D. - 10/03/2021 1:00 PM CST The patient is a 26yo G1 here for anatomy US and return visit. She is doing well, no leaking or bleeding, is starting to feel some activity. No GI concerns. Anatomy US today with incomplete heart views, otherwise normal. Plan to repeat in 1-2 weeks. We also discussed glucose testing and this was ordered today. She has received two doses of COVID vaccine (due for booster) and influenza vaccine. Return visit scheduled. Precautions given. rosamaria 10/03/2021 Impression/Report/Plan # IUP at 13-1/7 weeks # Asthma Mild Intermittent (HCC) # Colitis Crohn's (HCC) # High risk # History of abnormal pap smear # Polyp gallbladder # History of hypothyroidism, resolved - refer to Dr. Levine's noted dated Sep 2019 UCTION SORTER documented in this encounter Plan of Treatment Scheduled Referrals Name Type Priority Associated Order Schedule Diagnoses Obstetrics and Outpatient Referral Routine Expect ed: Gynecology office 10/17/2021 , visit (clinic) Expires: 01/03/2023 Obstetrics and Outpatient Referral Routine Expect ed: Gynecology office 11/28/2021 , visit (clinic) Expires: 01/03/2023 documented as of this encounter Results S-TSH (Thyroid-Stimulating Hormone - Sensitive) (11/29/2021 10:20 AM PRODUCTION SORTER) P athologist Signature TSH, Sensitive 1.4 0.3 - 4.2 11/29/2021 DTL mIU/L 11:49 AM PRODUCTION SORTER Specimen Anatomical Collection Method Collection Time Receive d Time (Source) Location / / Volume Laterality Blood (Blood, 11/29/2021 10:20 11/29/2021 Venous) AM PRODUCTION SORTER 11:16 AM PRODUCTION SORTER Jenaro Hassan M.D., Ph.D. LAB BLOOD ADD-ON Performing Organization Address City/State/ZIP Code Phon e Number [facility] - [address] [place] [phone] [facility] [place] [address] Laboratories-[facility] 200 [facility] Syphilis Total Ab w/ Reflex, Serum (11/29/2021 10:20 AM PRODUCTION SORTER) [facility] Method Time Signature Syphilis Nonreactive Nonreactive 11/29/2021 SDSC Total Ab w/ 10:01 PM PRODUCTION SORTER Reflex Comment: No serologic evidence of infection with T. pallidum (syphilis). ??Repeat testing may be cons idered in patients with suspected acute or primary syphilis in 2-4 weeks. For additional information on interpreta tion of the syphilis reverse algorithm and resul ts, see: [email or web address] df Specimen Anatomical Collection Method Collection Time Receive d Time (Source) Location / / Volume Laterality Blood (Blood, 11/29/2021 10:20 11/29/2021 Venous) AM PRODUCTION SORTER 10:01 PM PRODUCTION SORTER Jenaro Hassan M.D., Ph.D. LAB BLOOD ADD-ON Performing Organization Address City/[facility]/ZIP Code Phon e Number [facility] [address] [place], [place] [phone] [facility] [place] [address] Laboratory Medicine and Pathology [address] [place] Glucose Tolerance Test, 1 hour (11/29/2021 10:20 AM PRODUCTION SORTER) [facility] Method Time Signature Glucose, 1 Hr 110 Not Applicable 11/29/2021 DTL mg/dL 11:39 AM PRODUCTION SORTER Specimen Anatomical Collection Method Collection Time Receive d Time (Source) Location / / Volume Laterality Blood (Blood, 11/29/2021 10:20 11/29/2021 Venous) AM PRODUCTION SORTER 11:14 AM PRODUCTION SORTER Jenaro Hassan M.D., Ph.D. LAB BLOOD NON ADD-ON Performing Organization Address City/[facility] Code Phon e Number [facility] - [address] [place], [place] [phone] [facility] [place] [address] [facility] [address] (ABNORMAL) CBC without Differential (11/29/2021 10:20 AM PRODUCTION SORTER) [facility] Method Time Signature Hemoglobin 12.3 11.6 - 11/29/2021 DTL 15.0 g/dL 11:02 AM PRODUCTION SORTER Hematocrit 36.0 35.5 - 11/29/2021 DTL 44.9 % 11:02 AM PRODUCTION SORTER Erythrocytes 3.67 (L) 3.92 - 11/29/2021 DTL 5.13 11:02 AM PRODUCTION SORTER x10(12)/L MCV 98.1 (H) 78.2 - 11/29/2021 DTL 97.9 fL 11:02 AM PRODUCTION SORTER RBC Distrib Width 12.5 12.2 - 11/29/2021 DTL 16.1 % 11:02 AM PRODUCTION SORTER Platelet Count 265 157 - 371 11/29/2021 DTL x10(9)/L 11:02 AM PRODUCTION SORTER Leukocytes 11.4 (H) 3.4 - 9.6 11/29/2021 DTL x10(9)/L 11:02 AM PRODUCTION SORTER Specimen Anatomical Collection Method Collection Time Receive d Time (Source) Location / / Volume Laterality Blood (Blood, 11/29/2021 10:20 11/29/2021 Venous) AM PRODUCTION SORTER 10:49 AM PRODUCTION SORTER Jenaro Hassan M.D., Ph.D. LAB BLOOD ADD-ON Performing Organization Address City/State/ZIP Code Phon e Number [facility] - [address] [place], [place] [address] [facility] [place] [address] [facility] [address] US OB Follow-up and or Growth Leiva (10/23/2021 11:54 AM PRODUCTION SORTER) Anatomical Region Laterality Modality Body, Ultrasound OB RST LOS, Ultrasound ARZ LOS N/A Ultrasound Specimen (Source) Anatomical Location Collection Method / Collectio n Time Received Time / Laterality Volume Narrative 10/23/2021 12:08 PM PRODUCTION SORTER LAUREL CARABALLO OB Exam, 10/23/2021 EXAM INFORMATION Patient Name: ??LAUREL CARABALLO : ??1995 Age: ??26 yrs Sex: ??Female Ref Phys: ??JENARO HASSAN Exam Date: 10/23/2021 Procedure: US OB FOLLOW-UP AND OR GROWTH LEIVA Exam Site: [facility][id number] Plurality: 1 OBHx: [G:(1)] ?F Trm:() Pre:() C-Sec:() Ab-I:( ) Ab-S:() Ect:() Multi:() Angella:() INDICATIONS FOR SONOGRAPHY Follow up heart views IMPRESSION Growth Fetus: Live leiva intrauterine pregn glynn. Presentation: Cephalic. Follow-up anatomy: anatomy survey is complete, with identification of normal heart views, including 4 chamber heart view, RVOT, LVOT, 3VV, 3VT, aortic and ductal arch. Amniotic fluid volume: Normal. Conclusion: Live leiva intrauterine in cephalic presentation. Normal heart views, completing fet al anatomy survey. Normal amniotic fluid volume. MEASUREMENTS ??carmina ??wks [+/-] (R presley) % ?? COMPUTATIONS GA: ?? 22w0d Method: LATONYA LATONYA: 02/26/2022 Sono GA: Method: ?? OBSERVATIONS Amniotic Fluid Fluid Volume: ??Normal MVP: ??2.73 cm Presentation: ?? Cephalic FHR: 129 bpm Preliminary Read by Tiffany Calle RSidra.M.S. on 10/23/2021 11:54:03 AM. Sports Specialist: ??Tiffany Calle R.D. M.S. Thank You For This Referral Procedure Note Regine Cortez M.D. - 10/23/20 21 LAUREL CARABALLO OB Exam, 10/23/2021 EXAM INFORMATION Patient Name: LAUREL CARABALLO : 1995 Age: 26 yrs Sex: Female Ref Phys: JENARO HASSAN Exam Date: 10/23/2021 Procedure: US OB FOLLOW-UP AND OR GROWTH LEIVA Exam Site: [id number] Plurality: 1 OBHx: [G:(1)] F Trm:() Pre:() C-Sec:() Ab-I:() Ab-S:( ) Ect:() Multi:() Angella:() INDICATIONS FOR SONOGRAPHY Follow up heart views IMPRESSION Growth Fetus: Live leiva intrauterine pregn glynn. Presentation: Cephalic. Follow-up anatomy: anatomy survey is complete, with identification of normal heart views, including 4 chamber heart view, RVOT, LVOT, 3VV, 3VT, aortic and ductal arch. Amniotic fluid volume: Normal. Conclusion: Live leiva intrauterine in cephalic presentation. Normal heart views, completing fet al anatomy survey. Normal amniotic fluid volume. MEASUREMENTS carmina wks [+/-] (Range ) % COMPUTATIONS GA: 22w0d Method: LATONYA LATONYA: 02/26/2022 Sono GA: Method: OBSERVATIONS Amniotic Fluid Fluid Volume: Normal MVP: 2.73 cm Presentation: Cephalic FHR: 129 bpm Preliminary Read by Tiffany Calle R.D.M.S. on 10/23/2021 11:54:03 AM. Sports Specialist: Tiffany Calle R.D.MJulia SJulia Thank You For This Referral Jenaro Hassan M.D., Ph.D. IMG OB US PROCEDURES documented in this encounter Visit Diagnoses Diagnosis High Risk (HCC) - Primary Colitis Crohn's (HCC) High Risk (HCC) documented in this encounter Additional Health Concerns Assessment Noted Time PHQ-9 Depression Total Score: 1 08/01/2021 1:42 PM CDT documented as of this encounter Care Teams Vamp Wetter Relationship Specialty Start Date End Date Belkys Marshall APRN, C.N.P., M.S. PCP - General Family Medicine 11/16/19 [address] [place] [address] (work) documented as of this encounter
--- OUTSIDE RECORDS SUMMARY | 2022-08-31 12:35 | XMS_ITS | Encounter Summary ---
:1995 Author Organization [facility] Address [address] [place] [address] Care Team Providers Name Role Phone Belkys Marshall APRN, C.N.P., M.S. Primary Care Provider +1- [phone] Reason for Referral Outpatient (Routine) - Closed Specialty Diagnoses / Procedures Referred By Contact Ericka ramesh To Contact Obstetrics and Diagnoses High Risk (HCC) [facility] [address] [address] Referral ID Status Reason Start Date Expiration Date Visits Requ ested Visits Authorized [id number] Closed 07/18/2021 07/18/2022 1 1 Scheduling Instructions This appointment could also be 2 wks fro m now if needed Outpatient (Routine) - Closed Specialty Diagnoses / Procedures Referred By Contact Ericka ramesh To Contact Obstetrics and [facility] [address] [facility] [address] [place] [address] Referral ID Status Reason Start Date Expiration Date Visits Requ ested Visits Authorized [id number] Closed 07/18/2021 07/18/2022 1 1 Scheduling Instructions Chapo Nino Reason for Visit Appointment Request (Routine) - Closed Specialty Diagnoses / Procedures Referred By Contact Refer red To Contact Obstetrics and Diagnoses Examination Test With Positive Result (HCC) Gynecology Referral ID Status Reason Start Date Expiration Date Visits Requ ested Visits Authorized [id number] Closed 07/06/2021 07/06/2022 1 1 Encounter Details Date Type Department Care Team Description 07/18/2021 Telemedicine Department of [facility] High Risk Preg staci Obstetrics and La An R.N. (Primary Dx) Gynecology in [address] [place] [address] [place] [phone] [place], [place] [address] [place] [address] Social History Tobacco Use Types Packs/Day Years [...] documented as of this encounter Progress Notes La Hung R.N. - 07/18/2021 3:00 PM CDT SUBJECTIVE RN NOBN initial video visit CHIEF COMPLAINT / REASON FOR VISIT Laurel Caraballo is a 26 y.o. . Patient's last menstrual period was 05/22/2021 (exact date). Her Estimated Date of Delivery: 02/26/22 determined by LMP. Gestational age is 8w1d. Relationship with FOB: significant other, not living together. Patient is undecided about feeding plans. HISTORY OF PRESENT CONDITION OB History Para Term AB Living 1 0 0 0 0 0 SAB TAB Ectopic Molar Multiple Live Births 0 0 0 0 0 0 # Outcome Date GA Lbr William/2nd Weight Sex Delivery Anes PTL Lv 1 Current Genetic Screen: reviewed Warden Score: Past Medical History: Diagnosis Date ??? Abnormal Pap Smear Cervix 02/01/2021 ASCUS. colpo done ??? Arrhythmia palpitations ??? Asthma Mild Intermittent (HCC) 11/23/2012 Diagnosed 6th grade via testing. No hospitalizations. No oral prednisone bursts. Has been off medication for many years without symptoms. Currently asymptomatic. ??? Asthma NOS doesnt need inhaler often. mild ??? Colitis Crohn's (HCC) 02/14/2017 Diagnosed with Crohn's colitis in February 2017. She was initially treated with Remicade however she developed antibodies and had to be switched to Humira and Imuran. She could not tolerate Imuran due toside effects. ??She had a colonoscopy in August 08, 2018 to follow up response which showed mildly active chronic inflammation. Unfortunately, she developed antibodies to Humira and subsequently ??? Crohn's Disease (HCC) ??? Gallbladder Disorder 04/2020 polyps. Has been havig US q6mos ??? Hyperthyroidism 09/2019 ??? Hypothyroidism 09/2019 ??? 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 Infection Urinary Tract several in the past. On doxy early Aug for one ??? Migraine Headache in 2011 - 2015. rarely since then. No auras ??? Nausea And Vomiting ??? Personal History Unintended Awareness Under General Anesthesia ??? Polyp Colon ??? 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 Thyroid ultrasound demonstrated goiter and findings consistent withthe elevated TPO antibody/Amador's. Upon recheck labs normalized. Family history of both hyper and hypothyroidism in a paternal aunt and paternal grandmother respectively. Lab Results Component Value Date TSH 2.3 09/28/2019 [id number] 09/28/2019 ??? 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 Varicella Past Surgical History: Procedure Laterality Date ??? BREAST SURGERY Right 10/2013 fibroadenomas removed ??? COLPOSCOPY 02/27/2021 ??? EXCISION OF EXOSTOSIS OF BONE N/A 02/04/2008 Excision or curettage of bone cyst or benign tumor, talus or calcaneus;.. x3 ??? OTHER SURGICAL HISTORY 04/2016 Right bunionectomy ??? TONSILLECTOMY 1998 Adenoids removed in 1998 ??? TONSILLECTOMY AND ADENOIDECTOMY N/A 2002 Tonsillectomy and adenoidectomy; younger than age 12.. ??? TYMPANOTOMY N/A 02/04/1996 Myringotomy Family History Problem Relation Age of Onset ??? Hyperlipidemia Father ??? Sleep apnea Father ??? Asthma Brother ??? Depression Brother ??? Migraines Sister ??? Anxiety disorder Sister ??? Lung cancer Paternal Grandmother ??? Thyroid disease Paternal Grandmother Hypoactive thyroid took Synthroid ??? Clotting disorder Paternal Grandmother Great Paternal Grandmother had Antithrombin 3 deficiency ??? Prostate cancer Maternal Grandfather ??? Transient ischemic attack Maternal Grandfather ??? Dementia Maternal Grandfather ??? Stroke Maternal Grandmother ??? Transient ischemic attack Maternal Grandmother ??? Dementia Maternal Grandmother ??? Thyroid disease Father's Sister Hyperthyroidism removed right lobe. Biopsy & measure left lobe nodule annually ??? Other (Other) Mother Lupus ??? Migraines Sister ??? Breast cancer Neg Hx ??? Colon cancer Neg Hx ??? Ovarian cancer Neg Hx Social History Socioeconomic History ??? Marital status: Single Spouse name: Vargas Keith ??? Number of children: 0 ??? Years of education: None ??? Highest education level: Bachelor's degree (e.g., BA, AB, BS) Occupational History ??? 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 Smoking status: Never Smoker ??? Smokeless tobacco: Never Used Vaping Use ??? Vaping Use: never used Substance and Sexual Activity ??? Alcohol use: Not Currently Comment: rarely before preg ??? Drug use: No ??? Sexual activity: Yes Partners: Male Other Topics Concern ??? None Social History Narrative [place] [facility]. Commutes for work at [place]. Cardiac Surgery currently. Social Determinants of Health Financial Resource Strain: Low Risk ??? Difficulty of Paying Living Expenses: Not hard at all Food Insecurity: No Food Insecurity ??? Worried About Running Out of Food in the Last Year: Never true ??? Ran Out of Food in the Last Year: Never true Transportation Needs: No Transportation Needs ??? Lack of Transportation (Medical): No ??? Lack of Transportation (Non-Medical): No Physical Activity: Insufficiently Active ??? Days of Exercise per Week: 2 days ??? Minutes of Exercise per Session: 30 min Stress: No Stress Concern Present ??? Feeling of Stress : Only a little Social Connections: Moderately Isolated ??? Frequency of Communication with Friends and Family: More than three times a week ??? Frequency of Social Gatherings with Friends and Family: Once a week ??? Attends Congregation Services: More than 4 times per year ??? Active Member of Clubs or Organizations: No ??? Attends Club or Organization Meetings: Never ??? Marital Status: Never Intimate Partner Violence: Not At Risk ??? Fear of Current or Ex-Partner: No ??? Emotionally Abused: No ??? Physically Abused: No ??? Sexually Abused: No Allergies Allergen Reactions ??? Codeine GI intolerance ??? Topiramate Other (see comments) Medications the Patient Reported Taking albuterol inhaler (Taking) cholecalciferol, vitamin D3, (cholecalciferol) 25 mcg (1,000 Unit) tablet (Taking) cyanocobalamin (vitamin B-12) 1,000 mcg tablet (Taking) mercaptopurine (PURINETHOL) 50 mg tablet (Taking) pedi multivit no.19-folic acid (Flintstones Multi-Vit Gummies) 200 mcg tablet,chewable (Taking) Stelara 90 mg/mL injection (Taking) vitamin A 2,400 mcg (8,000 Unit) capsule (Taking) vitamin E 400 Unit capsule (Taking) ASSESSMENT / PLAN The following were reviewed with patient: Consults, Initial new OB labs and vitamins Eloisa Hung R.N. documented in this encounter Plan of Treatment Scheduled Referrals Name Type Priority Associated Order Schedule Diagnoses Obstetrics and Outpatient Referral Routine Expect ed: Gynecology office 07/18/2021 visit (clinic) (Approximate) , Expires: 07/18/2024 Obstetrics and Outpatient Referral Routine High Risk Expected: Gynecology - 07/18/2021 Clinical genomics (Approxima te), consult (clinic) Expires: 07/18/2024 documented as of this encounter Results US OB First Trimester [...] Procedure: US OB FIRST TRIMESTER Exam Site: [facility]5 Plurality: 1 OBHx: [G:(1)] ?F Trm:() Pre:() C-Sec:() Ab-I:( ) Ab-S:() Ect:() Multi:() Angella:() INDICATIONS FOR SONOGRAPHY dating and viability IMPRESSION Gilbert intrauterine . LATONYA es tablished by LMP consistent with crown-rump length measurement today (9 4/7 weeks). Bilateral ovaries appear normal. MEASUREMENTS ??carmina ??wks [+/-] (eMlanie sherwood) % ?? CRL: 2.74 cm ?? 9w4d ? COMPUTATIONS GA: ?? 10w1d Method: LATONYA LATONYA: 02/26/2022 Sono GA: 9w4d Method: ?? Average OBSERVATIONS Size: ?? Normal for dates FHR: 173 bpm COMMENTS Transabdominal ultrasound was performed. Early gilbert ??OB Single IUP. cardiac activity is vi sualized. heart rate is 173 BPM. Yolk sac is visualized. [place] rump length measures 27.4 mm. Both ovaries were visualized and appear normal. Preliminary Read by Martha Calle R .D.M.S. [MARGUERITE] on 08/01/2021 1:41:41 PM. [employer] Worker: ??Martha Calle R.D.M. S. [MARGUERITE] Thank You For This Referral Procedure Note Gilberto Vasquez M.D. - 08/01/2021Formattin g of this note might be different from the original. LAUREL CARABALLO OB Exam, 08/01/2021 EXAM INFORMATION Patient Name: LAUREL CARABALLO : 1995 Age: 26 yrs Sex: Female Ref Phys: EDGARD Mcnamara KEVIN Exam Date: 08/01/2021 Procedure: US OB FIRST TRIMESTER Exam Site: [facility] #5 Plurality: 1 OBHx: [G:(1)] F Trm:() Pre:() C-Sec:() Ab-I:() Ab-S:( ) Ect:() Multi:() Angella:() INDICATIONS FOR SONOGRAPHY dating and viability IMPRESSION Gilbert intrauterine . LATONYA es tablished by LMP consistent with crown-rump length measurement today (9 47 weeks). Bilateral ovaries appear normal. MEASUREMENTS carmina wks [+/-] (Range ) % CRL:2.74 cm 9w4d COMPUTATIONS GA: 10w1d Method: LATONYA LATONYA: 02/26/2022 Sono GA: 9w4d Method: Average OBSERVATIONS Size: Normal for dates FHR: 173 bpm COMMENTS Transabdominal ultrasound was performed. Early gilbert OB Single IUP. cardiac activity is vi sualized. heart rate is 173 BPM. Yolk sac is visualized. [place] rump length measures 27.4 mm. Both ovaries were visualized and appear normal. Preliminary Read by Martha Calle R .D.M.S. [RO] on 08/01/2021 1:41:41 PM. [employer] Worker: Martha Calle R.D.M.S. [RO] Thank You For This Referral Edgard Brown APRN, ELVIN IMMinerva OB US PROCEDURES documented in this encounter Visit Diagnoses Diagnosis High Risk (HCC) - Primary High Risk (HCC) documented in this encounter Care Teams Insurance Claim Representative Relationship Specialty Start Date End Date Belkys Marshall APRN, C.N.P., M.S. PCP - General Family Medicine 11/16/19 [address] [place] [address] documented as of this encounter
--- OUTSIDE RECORDS SUMMARY | 2022-08-31 12:35 | XMS_ITS | Encounter Summary ---
:1995 Author Organization [facility] Address [address] [place] [address] Care Team Providers Name Role Phone Belkys Marshall APRN, C.N.P., M.S. Primary Care Provider [phone] Reason for Referral Outpatient (Routine) - Closed Specialty Diagnoses / Procedures Referred By Contact Refer red To Contact Obstetrics and Diagnoses High Risk (HCC) [facility] Laverne BARAJAS, M.S.N. [address] [place] [phone] Referral ID Status Reason Start Date Expiration Date Visits Requ ested Visits Authorized [id number] Closed 08/01/2021 08/01/2022 1 1 utpatient (Routine) - Closed Specialty Diagnoses / Procedures Referred By Contact Ericka red To Contact Obstetrics and Shiela Romo [facility] Gynecology Laverne BARAJAS, M.S.N. [address] [place] [phone] Referral ID Status Reason Start Date Expiration Date Visits Requ ested Visits Authorized [id number] Closed 08/01/2021 08/01/2022 1 1 utpatient (Routine) - Closed Specialty Diagnoses / Procedures Referred By Contact Refer red To Contact [facility] Laverne BARAJAS, M.S.N. 200 [place] [address] Referral ID Status Reason Start Date Expiration Date Visits Requ ested Visits Authorized [id number] Closed 08/01/2021 08/01/2022 1 1 Reason for Visit Reason Comments Initial Visit Outpatient (Routine) - Closed Specialty Diagnoses / Procedures Referred By Contact Refer red To Contact Obstetrics and Leora Wise [facility] Gynecology [facility] [id number] [address] Referral ID Status Reason Start Date Expiration Date Visits Requ ested Visits Authorized [id number] Closed 07/18/2021 07/18/2022 1 1 Encounter Details Date Type Department Care Team Description 08/01/2021 Initial Department of Obstetrics Shiela Romo, GA: 10w1d and Gynecology in Laverne BARAJAS, M.S.NJulia [place] [address] [facility] 200 [place] [phone] (Wo rk) Social History Tobacco Use Types [...] 1 to 4 times per year 11/11 orthodoxy services? Do you belong to any clubs [...] Sign Reading Time Taken Comments Blood Pressure 103/69 08/01/2021 1:42 PM CDT Pulse 75 08/01/2021 1:42 PM CDT Temperature 37 ??C (98.6 ??F) 08/01/2021 1:42 PM CDT Respiratory Rate - - Oxygen Saturation 98% 08/01/2021 1:42 PM CDT Inhaled Oxygen Concentration - - Weight 63.5 kg (139 lb 15.9 oz) 08/01/2021 1:42 PM CDT Height - - Body Mass Index 22.85 07/29/2020 10:03 AM CDT documented in this encounter H&P Notes Shiela Romo, GRANITE POLISHER APPRENTICE, C.N.P., M.S.N. - 08/01/2021 2:00 PM CDT SUBJECTIVE CHIEF COMPLAINT / REASON FOR VISIT Laurel Caraballo is a 26 y.o. . Patient's last menstrual period was 05/22/2021 (exact date). Her Estimated Date of Delivery: 02/26/22 determined by 02/26/2022, by Last Menstrual Period. Gestational age is 10w1d. She is a primip. Specific complaints today include: nausea, fatigue HISTORY OF PRESENT CONDITION OB History Para Term AB Living 1 0 0 0 0 0 SAB TAB Ectopic Molar Multiple Live Births 0 0 0 0 0 0 # Outcome Date GA Lbr William/2nd Weight Sex Delivery Anes PTL Lv 1 Current Past Medical History: Diagnosis Date ??? Abnormal [...] several in the past. On doxy early Jun for one ??? Migraine Headache in 2011 - 2016. rarely since then. No auras ??? Nausea [...] Results Component Value Date TSH 2.3 09/28/2019 [id number] 09/28/2019 ??? 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 Varicella Has patient received covid vaccine: Yes, Completed full covid vaccine series Past Surgical History: Procedure Laterality Date ??? [...] of children: 0 ??? Years of education: Not on file ??? Highest education level: Bachelor's degree (e.g., BA, AB, BS) Occupational History ??? 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 Smoking status: Never Smoker ??? Smokeless tobacco: Never Used Vaping Use ??? Vaping Use: never used Substance and Sexual Activity ??? Alcohol use: Not Currently Comment: rarely before preg ??? Drug use: No ??? Sexual activity: Yes Partners: Male Other Topics Concern ??? Not on file Social History Narrative Lives [place] [facility]. Commutes for work at [employer]. Cardiac Surgery currently. Social Determinants of Health [...] and Family: Once a week ??? Attends Voodoo Services: More than 4 times per year ??? Active Member of Clubs or Organizations: No ??? Attends Club or Organization Meetings: Never ??? Marital Status: Never Intimate Partner Violence: Not At Risk ??? Fear of Current or Ex-Partner: No ??? Emotionally Abused: No ??? Physically Abused: No ??? Sexually Abused: No Allergies Allergen Reactions ??? Codeine GI intolerance ??? Topiramate Other (see comments) REVIEW OF SYSTEMS A comprehensive review of systems was negative OBJECTIVE VITAL SIGNS Temperature: [37 ??C] 37 ??C Blood Pressure: (103)/(69) 103/69 SpO2: [98 %] 98 % Weight: [63.5 kg] 63.5 kg Pulse Rate: [75] 75 PHYSICAL EXAM Physical General Exam HEENT: Normal Thyroid: Normal (Comment: OK) Lymph Nodes: Normal Neurological: Normal Skin: Normal Heart: Normal (Comment: OK) Lungs: Normal Abdomen: Normal Extremities: Normal Pelvic: DIAGNOSTICS I have reviewed the OB ultrasound(s) PHQ9 Score 08/01/2021 PHQ-9 Total Score (max 27) 1 [id number] Total Score (max 21): 0 (08/01/21 1342) ASSESSMENT / PLAN Expected Total Weight Gain: 11.5 kg-16 kg Initial labs: ordered Problem list reviewed and updated. Genetic screening: consult placed Consults ordered: None Given patient's clinical situation, plan complex care for her care. Discussed necessity of other members of the healthcare team, both male and female, as well as learners participating in care. #1 Gilbert IUP #2 Crohn's Diagnosis of Crohn's disease since 2017. She was initially on infliximab (Remicade) however she developed antibodies and was switched to adalimumab (Humira) and Imuran. Unable to tolerate Imuran side effects, developed antibodies to Humira and subsequently transitioned to Stelara 10/2018. Presently, she has been on Stelara injections.. Disease is stable and no recent flare, not on any corticosteroids. Reviewed risks and complications associated with inflammatory bowel disease and , includingincreased risk of delivery, growth restriction and stillbirth, as well as increased risk for preeclampsia and premature rupture of membranes. Disease activity is the strongest predictor of adverse outcomes in and I am optimistic that with disease quiescence in her case,all these risks are reduced. Recommended continuation of current biologic therapy as likely safe with monotherapy in and , although data is limited. Plan: 1. First trimester dating ultrasound to establish dating, completed and compatible with LMP dating. 2. Detailed anatomy ultrasound at 18-20 weeks gestation, given Stelara exposure through . 3. Growth ultrasound in the third trimester or sooner, if clinically indicated. Consider serial ultrasonography to evaluate interval growth especially if with disease exacerbation during or inadequate maternal weight gain. 4. Continue biologic therapy throughout and if sustained remission, consider last infusionat approximately 30-32 weeks gestation. For ustekinumab, the final injection can be given 6 to 10 weeks prior to the estimated date of delivery (4 to 5 weeks before delivery if [id number] dosing), then continued 48 hours' (Spring 2019). 5. Consider planned section if with active perianal disease at term. . The patient was screened for preeclampsia risk factors prior to 16 weeks gestation. The patient has the following risk factors: Major Risk Factors (2 points): none, no risk factors Minor risk factors (1 point) : nulliparity Total score of major and minor risk factors: 1 The patient meets the criteria for prophylactic aspirin use given the composite score of at least 2 points. Daily low-dose aspirin (81mg/daily) use in is considered safe and is associated with a low likelihood of serious maternal and/or complications. Hypertensive diseases of pregnancyincluding gestational hypertension, pre-eclampsia with and without severe features as well as HELLP syndrome were briefly explained to the patient. The patient does not have contraindications to aspirin such as history of GI bleed, NSAID allergies or a history of gastric bypass. The risks and benefitsof aspirin use were discussed with the patient and the patient will initiate aspirin therapy. Ideally, treatment should be initiated between 12 weeks and 28 weeks gestation (optimally before 16 weeks) and continued daily until delivery. The pt qualifies for [facility] nurse home visit program: No Risk factors may include low income, hx childhood abuse or neglect, hx maltreatment of previous children, limited social support, less than high school education, mental illness, developmental/cognitive impairment, past/current substance abuse, past/current involvement with corrections, past/current do mestic violence, late ot care, concerns, or other. PATIENT EDUCATION Ready to learn, barriers to learning: none; learning preferences include listening. Explained diagnosis and treatment plan; patient expressed understanding of the content. Shiela Romo APRN, C.N.Cherise, M.S.N. documented in this encounter Plan of Treatment Scheduled Referrals Name Type Priority Associated Order Schedule Diagnoses Obstetrics and Outpatient Referral Routine Expect ed: Gynecology office 10/03/2021 visit (clinic) (Approximate) , Expires: 08/01/2024 Obstetrics and Outpatient Referral Routine Expect ed: Gynecology office 08/22/2021 visit (clinic) (Approximate) , Expires: 08/01/2024 Obstetrics and Outpatient Referral Routine High Risk Expected: Gynecology - 08/01/2021 Clinical genomics (Approxima te), consult (clinic) Expires: 08/01/2024 documented as of this encounter Results US OB Advanced Level Gilbert (10/03/2021 9:51 AM 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) Anatomical Region Laterality Modality Body, Ultrasound OB RST LOS, Ultrasound ARZ LOS N/A Ultrasound Specimen (Source) Anatomical Location Collection Method / Collectio n Time Received Time / Laterality Volume Narrative 10/03/2021 10:05 AM TATYANA LAUREL CARABALLO OB Exam, 10/03/2021 EXAM INFORMATION Patient Name: ??LAUREL CARABALLO : ??1995 Age: ??26 yrs Sex: ??Female Ref Phys: ??SHIELA ROMO Exam Date: 10/03/2021 Procedure: US OB ADVANCED LEVEL SINGLETO N Exam Site: [facility] OB #4 Plurality: 1 OBHx: [G:(1)] ?F Trm:() Pre:() C-Sec:() Ab-I:( ) Ab-S:() Ect:() Multi:() Angella:() INDICATIONS FOR SONOGRAPHY Detailed Survey Iban Nix IMPRESSION Detailed Anatomy Survey Fetus: Live gilbert intrauterine pregn glnyn. Presentation: Breech. Anatomy: Incomplete detailed anato my survey, with 4 chamber heart view, RVOT, LVOT and bicaval view not well seen. No structural abnormalities identified otherwise. Imaging was difficult due to position. Growth: Appropriate for gestational age. Amniotic fluid volume: Normal. Placenta: Anterior, with no evidence of placenta previa or vasa previa. Uterus: No uterine abnormalities are corey ntified. Ovaries / Adnexa: Both ovaries appear no rmal. No adnexal abnormalities are identified. Cervix: Appears long on transabdominal i maging. Conclusion: Live gilbert intrauterine si ze consistent with dates. Incomplete detailed anatomy survey : 4 chamber heart view, RVOT, LVOT and bicaval view not well seen. No structural abnormalities identified otherwise. Recommendations: Repeat ultrasound in 1-2 weeks to re-ray luate anatomy. MEASUREMENTS ??carmina ??wks [+/-] (R presley) % ?? BPD: 4.28 cm ?? 19w0d ??[+/-1.73] ??(3. 75 - 4.93) 42% FL: 2.8 cm ?18w4d ??[+/-1.80] ??(2. 43 - 3.60) 23% HC: 15.97 cm ?? 18w6d ??[+/-1.48] ??(14 .63 - 18.55) 26% AC: 12.88 cm ?? 18w3d ??[+/-2.06] ??(11 .23 - 16.48) 23% HL: 2.75 cm ?? 18w4d ? (2.33 - 3.33) 43% CI: 75.09 ?(73.27 - 85.44) 18% RATIOS ??(Range) % ?? HC/AC: 1.24 ?(1.09 - 1. 26) 84% ?? FL/BPD: 0.65 ? FL/AC: 0.22 ? LONG BONES SURVEY ??cm ??wks [+/-] (Rang e) % ?? Humerus: 2.75 cm ?? 18w4d ? (2.33 - 3.33) 43% Ulna: ?? 2.62 cm ? Radius: 2.48 cm ? Femur: 2.8 cm ?18w4d ??[+/-1.80] ?? (2.43 - 3.60) 23% Tibia: 2.44 cm ? Fibula: 2.44 cm ? COMPUTATIONS GA: ?? 19w1d [+/-1.40] Method: LATONYA LATONYA: 02/26/2022 Sono GA: 18w4d [+/-1.40] Method: ?? BPD, HC, AC, FL OBSERVATIONS Amniotic Fluid Fluid Volume: ??Normal Placenta: Placenta is Anterior. ??There is no evidence of a placenta previa. Presentation: ?? Breech Size: ?? Normal for dates FHR: 145 bpm ANATOMY Normal: spine, cerebellum, cisterna magn a, cerebral ventricle, choroid plexus, nuchal thickness, 3 vessel view, aortic arch, ductal arch, diaphragm, anterior abdominal wall, abdominal cord insertion, co rd insert into placenta, 3 vessel cord, stomach, kidneys, bladder, face, upper lip/nose, orbits, upper extremities, lower extremities, hands, feet See Comment: 4 chamber heart, RVOT, LVOT Preliminary Read by Harika Leo R. D.MJuliaSJulia on 10/03/2021 9:54:45 AM. Roller Mechanic: ??Harika Leo R.D.M.S . Thank You For This Referral Procedure Note Regine Cortez M.D. - 10/03/20 21 LAUREL CARABALLO OB Exam, 10/03/2021 EXAM INFORMATION Patient Name: LAUREL CARABALLO : 1995 Age: 26 yrs Sex: Female Ref Phys: SHIELA Maddox CHRISTI Exam Date: 10/03/2021 Procedure: US OB ADVANCED LEVEL SINGLETO N Exam Site: [facility] OB #4 Plurality: 1 OBHx: [G:(1)] F Trm:() Pre:() C-Sec:() Ab-I:() Ab-S:( ) Ect:() Multi:() Angella:() INDICATIONS FOR SONOGRAPHY Detailed Survey Iban Nix IMPRESSION Detailed Anatomy Survey Fetus: Live gilbert intrauterine pregn glynn. Presentation: Breech. Anatomy: Incomplete detailed anato my survey, with 4 chamber heart view, RVOT, LVOT and bicaval view not well seen. No structural abnormalities identified otherwise. Imaging was difficult due to position. Growth: Appropriate for gestational age. Amniotic fluid volume: Normal. Placenta: Anterior, with no evidence of placenta previa or vasa previa. Uterus: No uterine abnormalities are corey ntified. Ovaries / Adnexa: Both ovaries appear no rmal. No adnexal abnormalities are identified. Cervix: Appears long on transabdominal i maging. Conclusion: Live gilbert intrauterine si ze consistent with dates. Incomplete detailed anatomy survey : 4 chamber heart view, RVOT, LVOT and bicaval view not well seen. No structural abnormalities identified otherwise. Recommendations: Repeat ultrasound in 1-2 weeks to re-ray luate anatomy. MEASUREMENTS carmina wks [+/-] (Range ) % BPD:4.28 cm 19w0d [+/-1.73] (3.75 - 4.9 3) 42% FL: 2.8 cm 18w4d [+/-1.80] (2.43 - 3.60 ) 23% HC: 15.97 cm 18w6d [+/-1.48] (14.63 - 1 8.55) 26% AC: 12.88 cm 18w3d [+/-2.06] (11.23 - 1 6.48) 23% HL: 2.75 cm 18w4d (2.33 - 3.33) 43% CI: 75.09 (73.27 - 85.44) 18% RATIOS (Range) % HC/AC:1.24 (1.09 - 1.26) 84% FL/BPD:0.65 FL/AC:0.22 LONG BONES SURVEY cm wks [+/-] (Range) % Humerus:2.75 cm 18w4d (2.33 - 3.33) 43% Ulna: 2.62 cm Radius:2.48 cm Femur:2.8 cm 18w4d [+/-1.80] (2.43 - 3. 60) 23% Tibia:2.44 cm Fibula:2.44 cm COMPUTATIONS GA: 19w1d [+/-1.40] Method: LATONYA LATONYA: 02/26/2022 Sono GA: 18w4d [+/-1.40] Method: BPD, HC, AC, FL OBSERVATIONS Amniotic Fluid Fluid Volume: Normal Placenta: Placenta is Anterior. There is no evidence of a placenta previa. Presentation: Breech Size: Normal for dates FHR: 145 bpm ANATOMY Normal: spine, cerebellum, cisterna magn a, cerebral ventricle, choroid plexus, nuchal thickness, 3 vessel view, aortic arch, ductal arch, diaphragm, anterior abdominal wall, abdominal cord insertion, cord insert into placenta, 3 vessel cord, stomach, kidneys, bladder, face, upper lip/nose, orbits, upper extremities, lower extremities, hands, feet See Comment: 4 chamber heart, RVOT, LVOT Preliminary Read by Harika Leo R. D.M.SJulia on 10/03/2021 9:54:45 AM. Roller Mechanic: Harika Leo R.D.M.S. Thank You For This Referral Layne Ramirez APRNNTawanna, M.S.N. IMG OB US PROCEDURE S US OB First Trimester (08/22/2021 3:42 PM CDT) Anatomical Region Laterality Modality Body, Ultrasound OB RST LOS, Ultrasound ARZ LOS N/A Ultrasound Specimen (Source) Anatomical Location Collection Method / Collectio n Time Received Time / Laterality Volume Narrative 08/22/2021 3:58 PM CDT LAUREL CARABALLO OB Exam, 08/22/2021 EXAM INFORMATION Patient Name: ??LAUREL CARABALLO : ??1995 Age: ??26 yrs Sex: ??Female Ref Phys: ??SHIELA ROMO Exam Date: 08/22/2021 Procedure: US OB FIRST TRIMESTER Exam Site: [facility] OB #126 Plurality: 1 OBHx: [G:(1)] ?F Trm:() Pre:() C-Sec:() Ab-I:( ) Ab-S:() Ect:() Multi:() Angella:() INDICATIONS FOR SONOGRAPHY First trimester anatomy MATERNAL MEASUREMENTS Cervix Length: ??33.3 mm Left Ovary: ?? 2.92 cm x ??cm x 2.39 cm = ??cc Right Ovary: ??2.87 cm x ??cm x 1.76 cm = ??cc MEASUREMENTS ??carmina ??wks [+/-] (Melanie sherwood) % ?? CRL: 6.46 cm ?? 12w6d ? NT: 1.6 mm ? COMPUTATIONS GA: ?? 13w1d Method: LATONYA LATONYA: 02/26/2022 Sono GA: 12w6d Method: ?? Average OBSERVATIONS Amniotic Fluid Fluid Volume: ??Normal Placenta: Placenta is Anterior. ?? Presentation: ?? Variable FHR: 151 bpm ANATOMY Normal: spine, choroid plexus, nuchal th ickness, diaphragm, anterior abdominal wall, abdominal cord insertion, cord insert into placenta, 3 vessel cord, stomach, kidneys, bladder, face, orbits, upper extremities, lower extremities, hands, feet COMMENTS Transabdominal ultrasound was performed. Early gilbert ??OB Single IUP. cardiac activity is vi sualized. heart rate is 151 BPM. Ramireno rump length measures 6.46 cm. The nuchal translucency measures 1.6 mm. Both ovaries were visualized and appear normal. First Trimester Anatomy Survey There are no major structural abno rmalities identified at this gestational age. Studies suggest a 32 - 60% detection rat e of congenital anomalies during first trimester anatomy screening. It is recommended that further anatomy e valuation be performed in the second trimester, typically at 19-20 weeks but can be done anytime from 18-22 weeks gestation. Preliminary Read by Rae Epstein), R.D.M.S. on 08/22/2021 3:45:28 PM. Roller Mechanic: ??Rae Epstein (Kris) , R.D.M.S. Thank You For This Referral Procedure Note Jonny Scott M.B.BJuliaSJulia, Devon. - 08/22 LAUREL CARABALLO OB Exam, 08/22/2021 EXAM INFORMATION Patient Name: LAUREL CARABALLO : 1995 Age: 26 yrs Sex: Female Ref Phys: SHIELA ROMO Exam Date: 08/22/2021 Procedure: US OB FIRST TRIMESTER Exam Site: [facility] OB #126 Plurality: 1 OBHx: [G:(1)] F Trm:() Pre:() C-Sec:() Ab-I:() Ab-S:( ) Ect:() Multi:() Angella:() INDICATIONS FOR SONOGRAPHY First trimester anatomy MATERNAL MEASUREMENTS Cervix Length: 33.3 mm Left Ovary: 2.92 cm x cm x 2.39 cm = cc Right Ovary: 2.87 cm x cm x 1.76 cm = c c MEASUREMENTS carmina wks [+/-] (Range ) % CRL:6.46 cm 12w6d NT: 1.6 mm COMPUTATIONS GA: 13w1d Method: LATONYA LATONYA: 02/26/2022 Sono GA: 12w6d Method: Average OBSERVATIONS Amniotic Fluid Fluid Volume: Normal Placenta: Placenta is Anterior. Presentation: Variable FHR: 151 bpm ANATOMY Normal: spine, choroid plexus, nuchal th ickness, diaphragm, anterior abdominal wall, abdominal cord insertion, cord insert into placenta, 3 vessel cord, stomach, kidneys, bladder, face, orbits, upper extremities, lower extremities, hands, feet COMMENTS Transabdominal ultrasound was performed. Early gilbert OB Single IUP. cardiac activity is vi sualized. heart rate is 151 BPM. Ramireno rump length measures 6.46 cm. The nuchal translucency measures 1.6 mm. Both ovaries were visualized and appear normal. First Trimester Anatomy Survey There are no major structural abno rmalities identified at this gestational age. Studies suggest a 32 - 60% detection rat e of congenital anomalies during first trimester anatomy screening. It is recommended that further anatomy e valuation be performed in the second trimester, typically at 19-20 weeks but can be done anytime from 18-22 weeks gestation. Preliminary Read by Rae Epstein ( Kris), R.D.M.S. on 08/22/2021 3:45:28 PM. Roller Mechanic: Rae Epstein (Kris), RSidra.M.S. Thank You For This Referral Shiela Romo APRN C.N.P., M.S.N. IMG OB US PROCEDURE S Chlamydia / Gonorrhoeae Amplified RNA (08/01/2021 4:55 PM CDT) [facility] Method Time Signature Source Urine, 08/02/2021 DTL Urine, First 5:58 AM CDT Voided Chlamydia Negative Negative 08/02/2021 DTL trachomatis 5:58 AM CDT amplified RNA Source Urine, 08/02/2021 DTL Urine, First 5:58 AM CDT Voided Neisseria Negative Negative 08/02/2021 DTL gonorrhoeae 5:58 AM CDT amplified RNA Specimen Anatomical Collection Method Collection Time Receive d Time (Source) Location / / Volume Laterality Varies (Urine, 08/01/2021 4:55 PM 021 6:43 First Voided) CDT PM CDT Shiela Romo APRN, C.N.P., M.S.N. LAB MICROBIOLOGY - GENERAL ORDERABLES Performing Organization Address [facility] Phon e Number [facility] - [address] [place] [address] Bacterial Culture, Aerobic + Susc, Urine (08/01/2021 4:55 PM CDT) [facility] Method Time Signature Urine Culture No growth 08/03/2021 DT after 1 day 7:16 AM CDT of incubation. Specimen Anatomical Collection Method Collection Time Receive d Time (Source) Location / / Volume Laterality Urine (Urine, 08/01/2021 4:55 PM 08/01/20 21 6:29 Midstream) CDT PM CDT Comment: Specimen Source Site: Urine Shiela Romo APRN, C.N.P., M.S.N. LAB MICROBIOLOGY - GENERAL ORDERABLES Performing Organization Address City/[facility] Phon e Number [facility] - [address] [place] [address] Urinalysis with Microscopic: Urine, Midstream (08/01/2021 4:55 PM CDT) [facility] Method Time Signature Source Urine, Urine, 08/01/2021 DTL Midstream 4:55 PM CDT Color, U Yellow 08/01/2021 DTL 4:56 PM CDT Clarity, U Clear 08/01/2021 DTL 4:56 PM CDT Protein, U <4 <26 mg/dL 08/01/2021 DTL 7:03 PM CDT Protein/Osmol <0.16 <0.42 08/01/2021 DTL ality ratio 7:03 PM CDT Predicted 24 <124 mg/24 h 08/01/2021 DTL Hr Protein 7:03 PM CDT Predicted <502 mg/24 h 08/01/2021 DTL Range 7:03 PM CDT Specimen Anatomical Collection Method Collection Time Receive d Time (Source) Location / / Volume Laterality Urine (Urine, 08/01/2021 4:55 PM 08/01/20 4:55 Midstream) CDT PM CDT Shiela Romo APRN, C.N.P., M.S.N. LAB URINE ORDERABLE S Performing Organization Address [facility] Phon e Number [facility] [place] [address] [address] [place] [address] [facility] [address] [facility] Syphilis Total Ab w/ Reflex, Serum (08/01/2021 3:57 PM CDT) [facility] Method Time Signature Syphilis Nonreactive Nonreactive 08/02/2021 [facility] Total Ab w/ 8:48 AM CDT Reflex Comment: No serologic evidence of infection with T. pallidum (syphilis). ??Repeat testing may be cons idered in patients with suspected acute or primary syphilis in 2-4 weeks. For additional information on interpreta tion of the syphilis reverse algorithm and resul ts, see: [email or web address] Specimen Anatomical Collection Method Collection Time Receive d Time (Source) Location / / Volume Laterality Blood (Blood, 08/01/2021 3:57 PM 08/01/20 8:48 Venous) CDT PM CDT Shiela Romo APRN, C.N.P., M.S.N. LAB BLOOD ADD-ON Performing Organization Address [facility] Phon e Number [facility] [address] [place], [place] [address] SUPPORT [facility] [place] [address] Laboratory Medicine and Pathology [address] [place] Thyroid Function Cerrillos (08/01/2021 3:57 PM CDT) athologist Signature TSH, Sensitive 2.4 0.3 - 4.2 08/01/2021 DT mIU/L 4:55 PM CDT Specimen Anatomical Collection Method Collection Time Receive d Time (Source) Location / / Volume Laterality Blood (Blood, 08/01/2021 3:57 PM 08/01/20 4:29 Venous) CDT PM CDT Shiela Romo APRN, C.N.P., M.S.N. LAB BLOOD ADD-ON Performing Organization Address [facility] Phon e Number [facility] - [address] [place], [place] [address] 05 [place] [address] Laboratories-[facility] [address] [facility] Rubella Antibodies, IgG (08/01/2021 3:57 PM CDT) athologist Signature Rubella Ab, Positive 08/02/2021 [facility] IgG, S 8:48 AM CDT Comment: Results suggest response to immunization or prior exposure to the virus. ----REFERENCE VALUE---- Vaccinated: Positive (>=1.0 AI) Unvaccinated: Negative (<=0.7 AI) Rubella IgG Antibody Index 3.4 08/02/2021 8: 48 AM CDT [facility] Specimen Anatomical Collection Method Collection Time Receive d Time (Source) Location / / Volume Laterality Blood (Blood, 08/01/2021 3:57 PM 08/01/20 8:48 Venous) CDT PM CDT Shiela Romo APRN, C.N.P., M.S.N. LAB MICROBIOLOGY - BLOOD ORDERABLES Performing Organization Address City/[facility] Phon e Number [facility] [address] [place] [address] [facility] [place] [address] Laboratory Medicine and Pathology [address] VALL[place] HIV-1/-2 Ag and Ab Scrn, Plasma (08/01/2021 3:57 PM CDT) athologist Signature HIV-1/-2 Ag Negative Negative 08/01/2021 [facility] and Ab 9:05 PM CDT Scrn, P Comment: Negative result does not rule out HIV in fection. If exposure to HIV infection occurred <14 d ays ago, contact the laboratory to request additi on of HIV-1 RNA detection / quantification test (HIV QN). Specimen Anatomical Collection Method Collection Time Receive d Time (Source) Location / / Volume Laterality Blood (Blood, 08/01/2021 3:57 PM 08/01/20 7:59 Venous) CDT PM CDT Shiela Romo APRN, C.N.P., M.S.N. LAB MICROBIOLOGY - BLOOD ORDERABLES Performing Organization Address [facility] Phon e Number [facility] [address] REENA [place] [facility] [address] [facility] [place] [address] Laboratory Medicine and Pathology [address] [place] [address] Dr. VALLES Hepatitis C Virus Antibody Screen (08/01/2021 3:57 PM CDT) athologist Signature HCV Ab Scrn Negative Negative 08/01/2021 [facility] , S 10:55 PM CDT Comment: Xkjjqz-nr-jzmlny ratio is <1.00 . Specimen Anatomical Collection Method Collection Time Receive d Time (Source) Location / / Volume Laterality Blood (Blood, 08/01/2021 3:57 PM 08/01/20 6:15 Venous) CDT PM CDT Shiela Romo APRN, C.N.P., M.S.N. LAB MICROBIOLOGY - BLOOD ORDERABLES Performing Organization Address City/[facility] Phon e Number [facility] [address] [place], [place] [address] [facility] [place] [address] Laboratory Medicine and Pathology [address] [place] [address] Dr. VALLES HBs Antigen , Serum (08/01/2021 3:57 PM CDT) athologist Signature HBs Antigen Negative Negative 08/01/2021 [facility] , S 10:39 PM CDT Specimen Anatomical Collection Method Collection Time Receive d Time (Source) Location / / Volume Laterality Blood (Blood, 08/01/2021 3:57 PM 08/01/20 6:15 Venous) CDT PM CDT Shiela Romo APRN, C.N.P., M.S.N. LAB MICROBIOLOGY - BLOOD ORDERABLES Performing Organization Address City/[facility]/ZIP Code Phon e Number [facility] [address] [place], [place] [address] [facility] [place] [address] Laboratory Medicine and Pathology [address] [place] Antibody Screen, RBC (with reflex Antibody ID) (08/01/2021 3:57 PM CDT) athologist Signature Antibody Negative Negative 08/01/2021 [facility] Screen 5:19 PM CDT Specimen Anatomical Collection Method Collection Time Receive d Time (Source) Location / / Volume Laterality Blood (Blood, 08/01/2021 3:57 PM 08/01/20 4:12 Venous) CDT PM CDT Shiela Romo APRN, C.N.P., M.S.N. LAB BLOOD BANK TEST ORDERABLES Performing Organization Address City/[facility] Phon e Number [facility] - [address] [place], [place] [address] [facility] [place] [address] Laboratories-[facility] [address] [facility] documented in this encounter Visit Diagnoses Diagnosis High Risk (HCC) - Primary Encounter For Supervision Of Normal Firs t Unspecified Trimester (HCC) High Risk (HCC) High Risk (HCC) documented in this encounter Additional Health Concerns Assessment Noted Time PHQ-9 Depression Total Score: 1 08/01/2021 1:42 PM CDT documented as of this encounter Care Teams Cable Splicer Helper Relationship Specialty Start Date End Date Belkys [place] APRN, C.N.P., M.S. PCP - General Family Medicine 11/16/[address] [place] [address] documented as of this encounter
--- OUTSIDE RECORDS SUMMARY | 2022-08-31 12:35 | XMS_ITS | Encounter Summary ---
:1995 Author Organization [facility] Address [address] [place] [address] Care Team Providers Name Role Phone Belkys [place] APRN C.N.P., M.S. Primary Care Provider [phone]- [phone] Encounter Details Date Type Department Care Team Description 09/18/2021 Specialty Pharmacy [facility] Veronica Cornelius [address] Varsha Bernardo, Pharm.D., R.Ph. [address] [address] [place], [place] [phone] (Wo rk) Social History Tobacco Use Types [...] 1 to 4 times per year 11/11 alevism services? Do you belong to any clubs [...] this encounter Miscellaneous Notes Telephone Encounter - Veronica Cornelius, Pharm.D., R.Ph. - 09/18/2021 5:11 PM CST SUBJECTIVE REASON FOR VISIT Specialty pharmacy reassessment of patient's medication knowledge, adherence, and side effects usingpatient reported answers to patient portal driven questionnaire(s). HISTORY OF PRESENT ILLNESS Ms. Laurel Mcdonald is a 26 y.o. female, who is followed by the specialty pharmacy service for Stelara (ustekinumab) . (Indication:crohn's disease) Patient questionnaire(s) submitted by patient via patient portal (Please refer to the below two questionnaires on the [facility] patient chart, encounter department: [facility] dated: 09/14/21) 1) Specialty Pharmacy Medication Adherence Questionnaire 2) [id number] questionnaire OBJECTIVE Lab Results Component Value Date CREATININE 0.81 07/05/2021 ASSESSMENT / PLAN 1. Medication Knowledge and Adherence In reference to the subjective patient questionnaire above and reviewing refill history in the [facility] record. The patient/caregiver reports appropriate medication knowledge. No adherence issues identified. 2. Medication Side effects/Adverse Events In reference to the 'Specialty Pharmacy Medication Adherence Questionnaire': The patient reports no medication side effects requiring attention. No reported adverse drug reactions, allergic reactions, overdoses or medication errors. 3. Effectiveness Patient reports medication effectiveness to be: 'excellent'. 4. Quality of Life From Idwyoz54 questionnaire information: Patient currently rating quality of life as 'Very Good'. 5. Summary and continued Goals of therapy Based on the above information, the patient's therapy is appropriate to continue. -Promote medication adherence. -Evaluate other newly prescribed therapies as needed for drug-drug and drug- disease appropriateness.Specialty medications reconciled and good karin attempt made in maintaining a complete medication list (via dispensing program) at each dispense of medication. -Mitigate, treat or prevent side effects. The patient does not meet the definition of high risk by [facility]SP definition. Follow-up: 6 months Veronica Cornelius, Pharm.D., R.Ph. L HAND documented in this encounter Plan of Treatment Not on filedocumented as of this encounter Visit Diagnoses Not on filedocumented in this encounter Additional Health Concerns Assessment Noted Time PHQ-9 Depression Total Score: 1 08/01/2021 1:42 PM CDT documented as of this encounter Care Teams Patient Carrier Relationship Specialty Start Date End Date Belkys [place] APRN, C.N.P., M.S. PCP - General Family Medicine 11/16/[address] [place] [phone] documented as of this encounter
--- OUTSIDE RECORDS SUMMARY | 2022-08-31 12:35 | XMS_ITS | Encounter Summary ---
:1995 Author Organization [facility] Address [address] [place] [address] Care Team Providers Name Role Phone Belkys [place] APRN C.N.P., M.S. Primary Care Provider [phone]- [phone] Reason for Referral Specialty Diagnoses / Procedures Referred By Contact Refer red To Contact [facility] [address] [place] [address] Referral ID Status Reason Start Date Expiration Date Visits Requ ested Visits Authorized Encounter Details Date Type Department Care Team Description 08/01/2021 Immunization Department of [facility] er For COVID-19 Medicine, [facility] Vaccin e Immunization Clinic [place], [facility] (Prim sadie Dx) [place] [facility] in [place] [address] [place] [address] Social History Tobacco Use Types Packs/Day Years [...] 1 to 4 times per year 11/11 m[employer] services? Do you belong to any clubs [...] Name Type Priority Associated Diagnoses [facility] Outpatient Referral Routine Encounter For E xpected: office visit COVID-19 Vaccine 08/22/2021, Subsequent; Pfizer Immunization Expires: 08/01/2024 documented as of this encounter Visit Diagnoses Diagnosis Encounter For COVID-19 Vaccine Immunizat ion - Primary documented in this encounter Additional Health Concerns Assessment Noted Time PHQ-9 Depression Total Score: 1 08/01/2021 1:42 PM CDT documented as of this encounter Care Teams Special Procedure Technologist Relationship Specialty Start Date End Date Belkys [place] APRN, C.N.P., M.S. PCP - General Family Medicine 11/16/19 [address] [place] [address] (work) documented as of this encounter
--- OUTSIDE RECORDS SUMMARY | 2022-08-31 12:35 | XMS_ITS | Encounter Summary ---
:1995 Author Organization [facility] Address [address] [place] [address] Care Team Providers Name Role Phone Belkys Marshall APRN, C.N.P., M.S. Primary Care Provider +1- [phone] Reason for Referral Outpatient (Routine) - Closed Specialty Diagnoses / Procedures Referred By Contact Refer red To Contact Belkys Marshall APRN, C.N.P. [facility] [address] [place] [phone] Referral ID Status Reason Start Date Expiration Date Visits Requ ested Visits Authorized [id number] Closed 06/02/2021 06/02/2022 1 1 Reason for Visit Reason Comments Urinary Retention Earache Sinusitis Appointment Request (Routine) - Closed Specialty Diagnoses / Procedures Referred By Contact Refer red To Contact Family Medicine Diagnoses Infection Urinary Tract Referral ID Status Reason Start Date Expiration Date Visits Requ ested Visits Authorized [id number] Closed 06/01/2021 06/01/2022 1 1 Encounter Details Date Type Department Care Team Description 06/02/2021 Office Visit Department of Belkys Greene Sym ptom Urinary (Primary Dx); Medicine, [facility] Laverne BARAJAS, Hemat [employer], in .S. [place], [place] [address] [place] [phone] Social History Tobacco Use Types Packs/Day Years [...] or relatives? How often do you attend confucianist or 1 to 4 times per year 11/11 zoroastrian services? Do you belong to any clubs or Yes 11/23/2021 organizations such as confucianist groups, unions, fraternal or athletic groups, or [...] for the very basics like Not jan grewal hard 11/23/2021 food, housing, medical care, and [...] Sign Reading Time Taken Comments Blood Pressure 101/63 06/02/2021 1:06 PM average of 3 CDT Pulse 82 06/02/2021 1:06 PM CDT Temperature - - Respiratory Rate - - Oxygen Saturation - - Inhaled Oxygen Concentration - - Weight 62.7 kg (138 lb 3.7 oz) 06/02/2021 1:06 PM CDT Height - - Body Mass Index 22.56 07/29/2020 10:03 AM CDT documented in this encounter Patient Instructions Patient InstructionsBelkys Marshall APRN, C.N.P., M.S. - 06/02/2021 1:00 PM CDT Will wait for test results to decide next steps. If unremarkable, will go forward with additional testing due to visible blood in urine. For headache and ear pain try decongestant daily for a few days, along with nasal steroid spray eachnostril (Flonase, Nasocort). documented in this encounter Progress Notes Belkys Marshall APRN, C.N.P., M.S. - 06/02/2021 1:00 PM CDT SUBJECTIVE CHIEF COMPLAINT / REASON FOR VISIT Laurel Mcdonald is a 26 y.o. female, patient of Belkys Marshall APRN, C.N.P., M.S. who presents for evaluation of Urinary Retention, Earache, and Sinusitis. HISTORY OF PRESENT ILLNESS Reports the last several months she has been having frequent UTI symptoms that will resolve brieflywith antibiotic therapy and then return. None of these UTIs have been lab confirmed. Most recent episode was early May with dysuria, frequency, urgency, and gross hematuria. She was empirically treated with Macrobid as she was on vacation. Symptoms resolved and then more mild symptoms returned which are currently present and include urinary frequency, dysuria, intermittent pelvic pressure, constant vaginal burning/discomfort. Denies discharge, pruritis, or odor. Denies constitutional symptoms. No longer on control. Cycles are regular with menses lasting 5-6 days. LMP 05/22/2021. No new sexualpartners. Reports for the last week or so has had frontal headache and bilateral ear pressure, R>L. The following portions of the patient's history were reviewed and updated as appropriate: allergies,current medications, family history, medical history, social history, surgical history and problem list. REVIEW OF SYSTEMS ENT: See HPI Genitourinary: Positive for pain with urination, hematuria and frequent urination. Neurological: Positive for headaches. The following systems were negative: Constitutional, Skin, Eyes, Respiratory, GI, Hematologic, Musculoskeletal, Psych OBJECTIVE PHYSICAL EXAM Physical Exam GENERAL APPEARANCE: Well developed, well-nourished and in no acute distress. HEAD: Normocephalic. ENT: External auditory canals clear. Fluid behind right TM, left normal. Hearing grossly intact. EYES: Conjunctivae non-injected; sclerae anicteric. Vision grossly intact. ABDOMEN: Soft, nontender without masses or hepatosplenomegaly. PELVIC: Normally developed genitalia with no external lesions or eruptions. Vagina and cervix show no lesions, inflammation, discharge or tenderness. NEUROLOGIC: Alert and oriented. Cranial nerves grossly intact. PSYCHIATRIC: Grossly intact. Vitals: 06/02/21 1306 BP: 101/63 Comment: average of 3 BP Location: Right arm Patient Position: Sitting Cuff Size: Regular Pulse: 82 PainSc: 1 PainLoc: Pelvis ASSESSMENT / PLAN #1 Symptom Urinary #2 Hematuria Gross Urine dip shows trace blood otherwise negative. Will send urine for culture and UA. Swabs to rule-out infection obtained. The gross hematuria resolved with antibiotic treatment which suggests this may have been secondary to UTI; however, given her urinary symptoms have returned if this testing is negative I do think work-up for gross hematuria indicated. She is agreeable. Results to be communicated via portal. Rx to be sent to [facility]. - Dipstick, POCT, Urine (nursing, interfaced) - Bacterial Culture, Aerobic + Susc, Urine - Urinalysis with Microscopic: Urine, Midstream - Chlamydia / Gonorrhoeae Amplified RNA - Gram Stain for Bacterial Vaginosis - Fungal Smear - Trichomonas vaginalis Amplified RNA - Ureaplasma PCR Other orders - Primary Care nurse visit (clinic) - [facility]; Future; Expected date: 06/02/2021 - Primary Care nurse visit (clinic) - [facility] - Dipstick, POCT, Urine Signs and symptoms warranting further evaluation were discussed. All questions were answered to the best of my ability. Patient was in agreement with the plan. 5 min pre-working chart + 20 min FTF with the patient + 10 minutes reviewing data in chart and documenting = E4 (30-39 min) documented in this encounter Plan of Treatment Scheduled Orders Name Type Priority Associated Diagnoses Order S chedule Dipstick, POCT, Point of Care Routine Symptom Urinary Ordered: 06/02/2021 Urine (nursing, Testing-Docked interfaced) Device Scheduled Referrals Name Type Priority Associated Diagnoses Order S kareem Primary Care nurse Outpatient Referral Routine Ex pected: visit (clinic) - 06/02/2021 [facility] (Approximat e), Expires: 06/02/2024 documented as of this encounter Procedures Procedure Name Priority Date/Time Associated Comments Diagnosis BACTERIAL CULTURE, Routine 06/02/2021 1:28 PM Symptom Urinary Results for this AEROBIC + SUSC, URINE CDT proced ure are in the results section. UREAPLASMA PCR Routine 06/02/2021 1:28 PM Symptom Urinary Resu lts for this CDT procedure are i n the results section. GRAM STAIN FOR Routine 06/02/2021 1:28 PM Symptom Urinary Resu lts for this BACTERIAL VAGINOSIS CDT procedur e are in the results section. TRICHOMONAS VAGINALIS Routine 06/02/2021 1:28 PM Symptom Urina ry Results for this AMPLIFIED RNA CDT procedure are in the results section. CHLAMYDIA/GONORRHOEAE Routine 06/02/2021 1:28 PM Symptom Urina ry Results for this AMPLIFIED RNA CDT procedure are in the results section. FUNGAL SMEAR Routine 06/02/2021 1:28 PM Symptom Urinary Result s for this CDT procedure are i n the results section. DIPSTICK, U Routine 06/02/2021 1:15 PM Results f or this CDT procedure are i n the results section. MICROSCOPIC AUTOMATED Routine 06/02/2021 1:15 PM Results for this CDT procedure are i n the results section. PH, U Routine 06/02/2021 1:15 PM Results f or this CDT procedure are i n the results section. OSMOLALITY, U Routine 06/02/2021 1:15 PM Results for this CDT procedure are i n the results section. URINALYSIS WITH Routine 06/02/2021 1:15 PM Symptom Urinary Res ults for this MICROSCOPIC CDT procedure are i n the results section. CA URINALYSIS AUTO WO Routine 06/02/2021 1:02 PM Results for this MICRO CDT procedure are i n the results section. documented in this encounter Results (ABNORMAL) Ureaplasma PCR (06/02/2021 1:28 PM CDT) [facility] Method Time Signature Specimen Source Swab, 06/05/2021 DTL Cervix/Endo 2:34 PM CDT cervix Ureaplasma Negative Not 06/05/2021 DTL urealyticum PCR Applicable 2:34 PM CDT Ureaplasma Positive Not 06/05/2021 DTL parvum PCR (A) Applicable 2:34 PM CDT Comment: ----ADDITIONAL INFORMATION---- This test was developed and its performa nce characteristics determined by [facility] in a manner consistent with CLIA requirements. This test has not been cleared or approved by the [place] [facility] d and Drug Administration. Specimen Anatomical Collection Method Collection Time Receive d Time (Source) Location / / Volume Laterality Varies 06/02/2021 1:28 PM 4:52 (Cervix/Endocerv CDT PM CDT ix) Celina Sequeira APRN.N.P., M.S. LAB MICROBIOLOGY - G ENERAL ORDERABLES Performing Organization Address City/State/ZIP Code Phon e Number [facility] - [address] [place], [place] [address] [facility] [place] [address] [facility] [address] Trichomonas vaginalis Amplified RNA (06/02/2021 1:28 PM CDT) [facility] Method Time Signature Source Swab, 06/03/2021 DTL Cervix/Endoc 6:23 AM CDT ervix Trichomonas Negative Negative 06/03/2021 DTL vaginalis 6:23 AM CDT amplified RNA Specimen Anatomical Collection Method Collection Time Receive d Time (Source) Location / / Volume Laterality Varies 06/02/2021 1:28 PM 4:52 (Cervix/Endocerv CDT PM CDT ix) Belkys Marshall APRN, C.N.P., M.S. LAB MICROBIOLOGY - G ENERAL ORDERABLES Performing Organization Address City/State/ZIP Code Phon e Number [facility] - [address] [place], [place] [address] [facility] [place] [address] [facility] [address] Fungal Smear (06/02/2021 1:28 PM CDT) P athologist Signature Fungal Smear Negative. 06/02/2021 DTL 9:42 PM CDT Specimen Anatomical Collection Method Collection Time Receive d Time (Source) Location / / Volume Laterality Swab (Vagina) 06/02/2021 1:28 PM 06/02/20 21 4:52 CDT PM CDT Comment: Specimen Source Site: Swab Belkys Marshall APRN, C.N.P., M.S. LAB MICROBIOLOGY - G ENERAL ORDERABLES Performing Organization Address City/State/ZIP Code Phon e Number [facility] - [address] [place], [place] [address] [facility] [place] [address] [facility] [address] [facility] Gram Stain for Bacterial Vaginosis (06/02/2021 1:28 PM CDT) Patholo gist Method Time Signature Gram Stain Consistent 06/02/2021 DTL for Bacterial with normal 6:16 PM CDT Vaginosis bacterial vaginal venessa. Specimen Anatomical Collection Method Collection Time Receive d Time (Source) Location / / Volume Laterality Swab (Vagina) 06/02/2021 1:28 PM 06/02/20 21 4:52 CDT PM CDT Comment: Specimen Source Site: Swab Belkys Marshall APRN, C.N.P., M.S. LAB MICROBIOLOGY - G ENERAL ORDERABLES Performing Organization Address City/State/ZIP Code Phon e Number [facility] - [address] [place], [place] [address] [facility] [place] [address] [facility] [address] [facility] Chlamydia / Gonorrhoeae Amplified RNA (06/02/2021 1:28 PM CDT) [facility] gist Method Time Signature Source Swab, 06/03/2021 DTL Cervix/Endoc 1:29 AM CDT ervix Chlamydia Negative Negative 06/03/2021 DTL trachomatis 1:29 AM CDT amplified RNA Source Swab, 06/03/2021 DTL Cervix/Endoc 1:29 AM CDT ervix Neisseria Negative Negative 06/03/2021 DTL gonorrhoeae 1:29 AM CDT amplified RNA Specimen Anatomical Collection Method Collection Time Receive d Time (Source) Location / / Volume Laterality Varies 06/02/2021 1:28 PM 4:52 (Cervix/Endocerv CDT PM CDT ix) Belkys Marshall APRN, C.N.P., M.S. LAB MICROBIOLOGY - G ENERAL ORDERABLES Performing Organization Address City/[facility] Phon e Number [facility] - [address] Bacterial Culture, Aerobic + Susc, Urine (06/02/2021 1:28 PM CDT) Component Value Ref Test Analysis Performed At [facility] Range Method Time Signature Urine Mixed Venessa, 06/03/2021 DTL Culture susceptibilities 12:22 PM not performed per CDT laboratory criteria. Specimen Anatomical Collection Method Collection Time Receive d Time (Source) Location / / Volume Laterality Urine (Urine, 06/02/2021 1:28 PM 06/02/20 21 3:55 Midstream) CDT PM CDT Comment: Specimen Source Site: Urine Belkys Marshall APRN, C.N.P., M.S. LAB MICROBIOLOGY - G ENERAL ORDERABLES Performing Organization Address City/[facility] Phon e Number [facility] - [address] Osmolality, Urine (06/02/2021 1:15 PM CDT) P athologist Signature Osmolality, U 792 150 - 1150 06/02/2021 DTL mOsm/kg 4:24 PM CDT Specimen Anatomical Collection Method Collection Time Receive d Time (Source) Location / / Volume Laterality Urine 06/02/2021 1:15 PM 1 2:55 CDT PM CDT Belkys Marshall APRN, C.N.P., M.S. LAB URINE ORDERABLES Performing Organization Address City/[facility]/ZIP Code Phon e Number [facility] - 200 [place], [place] [address] [place] [address] pH, Urine (06/02/2021 1:15 PM CDT) athologist Signature pH, U 6.4 4.5 - 8.0 06/02/2021 4:24 DTL PM CDT Specimen Anatomical Collection Method Collection Time Receive d Time (Source) Location / / Volume Laterality Urine 06/02/2021 1:15 PM 1 2:55 CDT PM CDT Belkys Marshall APRN, C.N.P., M.S. LAB URINE ORDERABLES Performing Organization Address City/[facility]/ZIP Code Phon e Number [facility] - 200 [place], [place] [address] [place] [address] Microscopic Automated (06/02/2021 1:15 PM CDT) athologist Signature Microscopy Normal 06/02/2021 DTL 3:29 PM CDT RBC <3 <3 /hpf 06/02/2021 DTL 3:29 PM CDT Squamous 1-3 /hpf 06/02/2021 DTL Epithelial 3:29 PM CDT Cells, U Specimen Anatomical Collection Method Collection Time Receive d Time (Source) Location / / Volume Laterality Urine 06/02/2021 1:15 PM 1 2:55 CDT PM CDT Belkys Marshall APRN, C.N.P., M.S. LAB URINE ORDERABLES Performing Organization Address City/[facility]/ZIP [facility] Phon e Number [facility] - 200 [place], [place] [address] [place] [address] (ABNORMAL) Dipstick, Urine (06/02/2021 1:15 PM CDT) [facility] Method Time Signature Hemoglobin, Trace (A) Negative 06/02/2021 DTL QL 3:29 PM CDT Leukocyte Negative Negative 06/02/2021 DTL Esterase, U 3:29 PM CDT Nitrite, U Negative Negative 06/02/2021 DTL 3:29 PM CDT Ketones, U Negative Negative 06/02/2021 DTL mg/dL 3:29 PM CDT Glucose, U Negative Negative 06/02/2021 DTL mg/dL 3:29 PM CDT Specimen Anatomical Collection Method Collection Time Receive d Time (Source) Location / / Volume Laterality Urine 06/02/2021 1:15 PM 2:55 CDT PM CDT Jess Sequeira APRNP., M.S. LAB URINE ORDERABLES Performing Organization Address City/State/ZIP Code Phon e Number [facility] - [address] [place] [address] [facility] [place] [address] [facility] [address] [facility] Urinalysis with Microscopic: Urine, Midstream (06/02/2021 1:15 PM CDT) [facility] Method Time Signature Source Urine, Urine, 06/02/2021 DTL Midstream 2:54 PM CDT Color, U Yellow 06/02/2021 DTL 2:55 PM CDT Clarity, U Clear 06/02/2021 DTL 2:55 PM CDT Protein, U 13 <26 mg/dL 06/02/2021 DTL 3:43 PM CDT Protein/Osmol 0.16 <0.42 06/02/2021 DTL ality ratio 4:24 PM CDT Predicted 24 130 mg/24 h 06/02/2021 DTL Hr Protein 4:24 PM CDT Predicted 32-525 mg/24 h 06/02/2021 DTL Range 4:24 PM CDT Specimen Anatomical Collection Method Collection Time Receive d Time (Source) Location / / Volume Laterality Urine (Urine, 06/02/2021 1:15 PM 06/02/20 21 2:54 Midstream) CDT PM CDT Adrianna Sequeira APRN.P., M.S. LAB URINE ORDERABLES Performing Organization Address City/[facility]/ZIP Code Phon e Number [facility] - 200 [place], [place] [address] [facility] [place] [address] [facility] 200 [facility] (ABNORMAL) Dipstick, POCT, Urine (06/02/2021 1:02 PM CDT) [facility] gist Method Time Signature Glucose, Negative Negative 06/02/2021 PCNE POCT, U mg/dL 1:04 PM CDT Ketone, POCT, Negative Negative 06/02/2021 PCNE U mg/dL 1:04 PM CDT Specific 1.025 1.005 - 06/02/2021 PCNE [place], 1.030 1:04 PM CDT POCT, U Blood, POCT, Trace (A) Negative 06/02/2021 PCNE U 1:04 PM CDT pH, POCT, 7.0 5.0 - 8.0 06/02/2021 PCNE Urine 1:04 PM CDT Protein, Negative Negative 06/02/2021 PCNE POCT, U mg/dL 1:04 PM CDT Nitrites, Negative Negative 06/02/2021 PCNE POCT, U 1:04 PM CDT Leukocytes, Negative Negative 06/02/2021 PCNE POCT, U 1:04 PM CDT Specimen Anatomical Collection Method Collection Time Receive d Time (Source) Location / / Volume Laterality Urine 06/02/2021 1:02 PM 1:04 CDT PM CDT Unknown Provider LAB POCT ORDERABLES - DEVICE Performing Organization Address City/State/ZIP Code Phon e Number [facility] [address] JI documented in this encounter Visit Diagnoses Diagnosis Symptom Urinary - Primary Hematuria Gross documented in this encounter Care Teams Stencil Printer Relationship Specialty Start Date End Date Belkys Marshall APRN, C.N.P., M.S. PCP - General Family Medicine 11/16/[address] [place] [address] documented as of this encounter
--- OUTSIDE RECORDS SUMMARY | 2022-08-31 12:35 | XMS_ITS | Encounter Summary ---
:1995 Author Organization [facility] Address [address] [place] [address] Care Team Providers Name Role Phone Belkys Marshall APRN C.N.P., M.S. Primary Care Provider +1- [phone] Encounter Details Date Type Department Care Team Description 06/05/2021 Orders Only Department of [facility] Belkys Marshall APR N, Medicine, [facility] C.N .P., M.S. [facility], in [address] [facility] [address] Claudio [address] [phone] [place] [address] [phone] Social History Tobacco Use Types Packs/Day Years [...] 1 to 4 times per year 11/11 holiness services? Do you belong to any clubs [...] on filedocumented in this encounter Care Teams Technical Services Representative Relationship Specialty Start Date End Date Belkys Marshall APRN, C.N.P., M.S. PCP - General Family Medicine 11/16/19 [address] [place] [address] documented as of this encounter
--- OUTSIDE RECORDS SUMMARY | 2022-08-31 12:35 | XMS_ITS | Encounter Summary ---
:1995 Author Organization [facility] Address [address] [place] [address] Care Team Providers Name Role Phone Belkys Marshall APRN, C.N.P., M.S. Primary Care Provider +1- [phone] Reason for Visit Outpatient (Routine) - Closed Specialty Diagnoses / Procedures Referred By Contact Refer red To Contact [facility] Laverne BARAJAS, M.S.N. [address] [place] [phone] Referral ID Status Reason Start Date Expiration Date Visits Requ ested Visits Authorized [id number] Closed 08/01/2021 08/01/2022 1 1 Encounter Details Date Type Department Care Team Description 08/22/2021 Virtual Visit Department of Angela Hassan Colitis Croh n's ([facility]) (Primary Dx); Obstetrics and M.DJulia, Ph.D. High Risk ; Gynecology in [address] [place] [address] Abnormal Pap Smear Personal History; [place], [place] Thyroiditis Amador's [address] [place] [phone] [place], [place] [phone] (Work) [phone] Social History Tobacco Use Types Packs/Day Years [...] 1 to 4 times per year 11/11 pentecostal services? Do you belong to any clubs [...] Progress Notes Angela Hassan M.D., Ph.D. - 08/22/2021 4:30 PM CDT Consult conducted via real-time audio/video technology by Angela Hassan M.D., Ph.D. in [facility] to the patient in at home. The patient is a 26yo G1 at 13-1/7 weeks by 10 week US. She is generally doing well. Nausea has improved. No leaking or bleeding. First trimester anatomy US today WNL. Results reviewed with patient. Discussed Complex care Clinic and [facility]/Laborists. Return early October for 20 week anatomy scan. Precautions given. [email or web address] 08/22/2021 Impression/Report/Plan # IUP at 13-1/7 weeks # Asthma Mild Intermittent (HCC) # Colitis Crohn's (HCC) Plan: 1. First trimester dating ultrasound to [...] (4 to 5 weeks before delivery if mgiei-5-ilgo dosing), then continued 48 hours' (Spring 2019). ?? 5. Consider planned section if with active perianal disease at term. 6. Resume Stelara after delivery interval appropriate and no infection: 24 hours after vaginal delivery and 48 hours after section. 7. Inform primary care provider of Stelara in utero exposure to avoid live vaccinations within the first year of life. ?? # High risk #Thyroiditis Amador's # Polyp Gallbladder # Abnormal Pap Smear Personal History # High Risk documented in this encounter Plan of Treatment Not on filedocumented as of this encounter Visit Diagnoses Diagnosis Colitis Crohn's (HCC) - Primary High Risk (HCC) Abnormal Pap Smear Personal History Thyroiditis Amador's documented in this encounter Additional Health Concerns Assessment Noted Time PHQ-9 Depression Total Score: 1 08/01/2021 1:42 PM CDT documented as of this encounter Care Teams Museum Informatics Specialist Relationship Specialty Start Date End Date Belkys Marshall, KARL, C.N.P., M.S. PCP - General Family Medicine 11/16/[address] [place] [phone] documented as of this encounter
--- OUTSIDE RECORDS SUMMARY | 2022-08-31 12:35 | XMS_ITS | Encounter Summary ---
:1995 Author Organization [facility] Address [address] [place] [address] Care Team Providers Name Role Phone Belkys Marshall APRN, C.N.P., [facility] [place], [place]. Primary Care Provider +1- [phone] Encounter Details Date Type Department Care Team Description 07/19/2021 Clinical Communication Department of [facility] stevenson Marshall, Medicine, [facility] Laverne BARAJAS, [facility], in [place], [place] [address] [place] [address] [place] [phone] Social History Tobacco Use Types Packs/Day Years [...] or relatives? How often do you attend temple or 1 to 4 times per year 11/11 episcopalian services? Do you belong to any clubs or Yes 11/23/2021 organizations such as temple groups, unions, fraternal or athletic groups, or [...] this encounter Miscellaneous Notes Telephone Encounter - Rocio Gordon RJuliaN. - 07/19/2021 1:32 PM CDT SUBJECTIVE CHIEF COMPLAINT / REASON FOR CALL No chief complaint on file. Information Discussed Patient notified. Per OB Department, not currently recommending specific work restrictions or providing written accommodation for patients, including health care providers and teachers, we recommend that all women attempt to minimize their exposure to COVID-19.?? Those who are in high risk areas should discuss their individual circumstances with their work unit and supervisor cutting and sewing room.?? When possible, measures should be undertaken to further minimize exposure, including modification of work location or work duties.?? Women working in a healthcare setting may want to consider limiting their exposure to patients with confirmed or suspected COVID-19, especially during higher risk procedures (e.g., aerosol-generating procedures). Good hand hygiene, masking, respiratory hygiene, and social distancing are the best options to prevent the spread of COVID-19 PLAN Disposition/Recommendation: See above. 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 Patient states for her to be reassigned she needs a note from her provider. Patient does not see OB to later this month which is why she is reaching out to primary care. Patient can be contacted at [employer]. Thank you. Please respond to RST ECH BRAD Scheduling pool if necessary documented in this encounter Plan of Treatment Not on filedocumented as of this encounter Visit Diagnoses Not on filedocumented in this encounter Care Teams Assurance Assistant Relationship Specialty Start Date End Date Belkys Marshall, KARL, C.N.P., M.S. PCP - General Family Medicine 11/16/19 [address] [place] [address] documented as of this encounter
--- OUTSIDE RECORDS SUMMARY | 2022-08-31 12:35 | XMS_ITS | Encounter Summary ---
:1995 Author Organization [facility] Address [address] [place] [id number] Care Team Providers Name Role Phone Belkys Marshall APRN, C.N.P., M.S. Primary Care Provider +1- [phone] Encounter Details Date Type Department Care Team Description 10/03/2021 Hospital Encounter Department of Shiela Barraza, High Risk Obstetrics and Laverne BARAJAS, Gynecology in [address] [place] [phone] Social History Tobacco Use Types Packs/Day Years [...] or relatives? How often do you attend baptist or 1 to 4 times per year 11/11 mosque services? Do you belong to any clubs or Yes 11/23/2021 organizations such as baptist groups, unions, fraternal or athletic groups, or [...] tablet,chewable Take 3 tablets by 0 022 [id number] 27 mouth daily. mg iron- 1 mg tablet Stelara 90 mg/mL INJECT 90 MG (ONE 180 mL 2 03/21/2021 1 01/02/2021 injectionIndications: SYRINGE) Crohn's Disease (HCC) SUBCUTANEOUSLY EVERY 8 WEEKS, PLEASE MAKE AN APPOINTMENT TO CONTINUE MEDICATION. documented as of this encounter Plan of Treatment Not on filedocumented as of this encounter Procedures Procedure Name Priority Date/Time Associated Comments Diagnosis US OB ADVANCED RAD - Routine 10/03/2021 9:51 High Risk Results f or this LEVEL GILBERT (most inpatients AM CREDIT RISK ASSOCIATE procedur e are in and all the results outpatients) section. documented in this encounter Results US OB Advanced Level Gilbert (10/03/2021 9:51 AM CREDIT RISK ASSOCIATE) Anatomical Region Laterality Modality Body, Ultrasound OB RST LOS, Ultrasound ARZ LOS N/A Ultrasound Specimen (Source) Anatomical Location Collection Method / Collectio n Time Received Time / Laterality Volume Narrative 10/03/2021 10:05 AM CREDIT RISK ASSOCIATE LAUREL CARABALLO OB Exam, 10/03/2021 EXAM INFORMATION Patient Name: ??LAUREL CARABALLO : ??1995 Age: ??26 yrs Sex: ??Female Ref Phys: ??SHIELA BARRAZA Exam Date: 10/03/2021 Procedure: US OB ADVANCED LEVEL SINGLETO N Exam Site: [facility] OB #4 Plurality: 1 OBHx: [G:(1)] ?F Trm:() Pre:() C-Sec:() Ab-I:( ) Ab-S:() Ect:() Multi:() Angella:() INDICATIONS FOR SONOGRAPHY Detailed Survey Amador Nixs IMPRESSION Detailed Anatomy Survey Fetus: Live gilbert [...] LVOT Preliminary Read by Harika Leo R. D.M.S. on 10/03/2021 9:54:45 AM. Drawer In Dobby Loom: ??Harika Leo R.D.M.S . Thank You For This Referral Procedure Note Regine Cortez M.D. - 10/03/20 21 LAUREL CARABALLO OB Exam, 10/03/2021 EXAM INFORMATION Patient Name: LAUREL CARABALLO : 1995 Age: 26 yrs Sex: Female Ref Phys: SHIELA Varsha BARRAZA Exam Date: 10/03/2021 Procedure: US OB ADVANCED LEVEL SINGLETO N Exam Site: [facility] OB #4 Plurality: 1 OBHx: [G:(1)] F [...] LVOT Preliminary Read by Harika Leo R. D.M.S. on 10/03/2021 9:54:45 AM. Drawer In Dobby Loom: Harika Leo R.D.M.SJulia Thank You For This Referral Shiela Varsha Barraza APRN, C.N.P., M.S.N. IMG OB US PROCEDURE S documented in this encounter Visit Diagnoses Diagnosis High Risk (HCC) documented in this encounter Additional Health Concerns Assessment Noted Time PHQ-9 Depression Total Score: 1 08/01/2021 1:42 PM CDT documented as of this encounter Care Teams Quarter Backer Relationship Specialty Start Date End Date Belkys Marshall, KARL, C.N.P., M.S. PCP - General Family Medicine 11/16/19 [address] [place] [address] documented as of this encounter
--- OUTSIDE RECORDS SUMMARY | 2022-08-31 12:35 | XMS_ITS | Encounter Summary ---
:1995 Author Organization [facility] Address [address] [place] [address] Care Team Providers Name Role Phone Belkys Marshall APRN, C.N.P., M.S. Primary Care Provider +1- [phone] Reason for Visit Outpatient (Routine) - Closed Specialty Diagnoses / Procedures Referred By Contact Refer red To Contact Obstetrics and Diagnoses High [facility]HCC) [facility] Laverne BARAJAS, M.S.N. [address] [place] [phone] Referral ID Status Reason Start Date Expiration Date Visits Requ ested Visits Authorized [id number] Closed 08/01/2021 08/01/2022 1 1 Encounter Details Date Type Department Care Team Description 08/22/2021 Comprehensive Visit Department of Rocio Hays M.S., [facility] [address] [place] [phone] Counseling Genetic Procreative Managemen t (Primary Dx); Obstetrics and Nereida White M.S., [facility] [address] [place] [phone] High Risk ; Gynecology in Encounter For Supervision Of Normal First Unspecified Trimester [place], [place] [address] [place] [address] Social History Tobacco Use Types Packs/Day Years [...] documented as of this encounter Consult Notes Nereida Shea M.S., [facility] - 08/22/2021 2:15 PM CDT REASON FOR VISIT genetic screening HISTORY OF PRESENT ILLNESS History: Estimated Date of Delivery: 02/26/22 EGA: 13w1d Ms. Mcdonald was referred by Shiela Romo APRN, C.NTawanna, M.S.N. for genetic counseling to discuss genetic screening options. She is unaccompanied. FAMILY HISTORY A focused family history was obtained as a part of the visit today. Our risk assessment is based upon medical and family history information as provided by the patient, and may change should new information be obtained. ?? Cri du Chat: The father of the baby, Vargas,'s paternal first cousin had a child with Cri du Chat who at 15 mths due to complications from Cri du chat. Cri du chat is a genetic disorder caused by a deletion of the short arm of chromosome 5. The clinical picture, severity, and progression of the disease vary depending on the region of the chromosome that is deleted. Cri du chat is one of the most common chromosomal anomalies. The incidence ranges from1 in 15,000 to 1 in 50,000 liveborn infants. The incidence in females is slightly higher than in males. The most characteristic feature of this disease is high-pitched crying. Individuals may also look a bit different from their family and may have small heads (microcephaly), widely spaced eyes (hypertelorism), large nasal bride, prominent epicanthic folds, downturned corners of the mouth, short philtrum, and premature chavez hair. During the period, physical therapy should be started in the first week of life to help with any difficulty in swallowing and suction. Physical therapy, psychomotricity, and speech therapy are suggested interventions for psychomotor and speech delay. Patients often have sensorineural deafness; therefore, audiometric examinations should take place in all children. Other helpful treatments include surgery, a special diet, and healthy routines. Morbidity and mortality rates decrease after the first few years of life. Reportedly 75% of deaths occur during the first month of life, and about 90% of deaths occur during the first year. It is important to note that the type, size, and location of the deletion(s) significantly influence the prognosis. Most of the deletions occur de hedy. The deletions occur as random events during the formation of reproductive cells in early development. 10% to 15% of individuals with cri du chat occur due to an unbalanced parental translocation. Ms. Mcdonald reports that there was genetic testing and that this cousin may be a 'carrier' of Cri du Chat. Ms. Mcdonald will reach out to the father of the baby's cousin to ask for genetic testing results and send them to me for review to determine if this was inherited. If it is inherited we will discuss testing options for the father of the baby, Vargas. ?? Antithrombin 3 deficiency: Ms. Mcdonald's paternal grandmother's mother had antithrombin 3 deficiency. There is no family history of clotting. Deficiency of antithrombin (AT; antithrombin III) can be inherited or acquired; it is defined as an AT activity level that is consistently less than 80 percent of normal (or the lower limit of the assay's reference range). AT is a natural anticoagulant. AT deficiency can be inherited or acquired. Inherited deficiencies are due to AT gene mutations. Acquired deficiencies can result from impaired production of functional AT (eg, due to liver disease, asparaginase therapy); protein losses (eg, in nephrotic syndrome) or accelerated consumption, as occurs in acute thrombosis or disseminated intravascular coagulation (DIC). Inheritance of AT deficiency is autosomal dominant with variable penetrance. Children of affected individuals have approximately a 50 percent chance of inheriting the condition. Importantly, however, not all individuals with laboratory evidence of AT deficiency will develop thrombosis or require antico agulation. It is caused by changes in the gene SERPINC1. We discussed that while reassuring that has a negative family history for blood clots it does not eliminate the possibility of it being inherited as not all individuals who have this condition develop blood clots. Ms. Mcdonald states that she believes it to be inherited. We discussed that if it is inherited, Ms. Mcdonald has a 1/8 chance of having it and the has a 1/16 chance of having antithrombin 3 deficiency. ?? Multifactorial: Ms. Mcdonald has crohn's disease. Her sister has Guillain- Jean Baptiste?? syndrome. Her mother has Lupus. I explained that multifactorial conditions are usually common in the general population and have both genetic and environmental risk factors. As such, the inheritance within a family is complex. While genetic risk markers have been identified in large studies in the research setting, these modest genetic risks are difficult to incorporate into a single individuals risk as there are many other confounding risk factors (i.e. age, lifestyle, environment etc). At present time, genetic testing for these risk markers is generally not used clinically. The patient is encouraged to review traditional risk factors and screening guidelines in the context of this increased risk and their overall health with their physician. Overall, the remainder of the family history is not significant for intellectual disability, defects, multiple miscarriages or , or known genetic disorders. Ms. Mcdonald is of Ukrainian, Belizean, American, and Stateless descent. The father of the baby is of mixedEuropean descent. There is no reported Ashkenazi Evangelical ancestry or consanguinity. ASSESSMENT/PLAN #1 26 y.o.-year-old, female referred at approximately 13w1d #2 genetic screening The risk of chromosome abnormalities in a increases with maternal age. 27 y.o. at the timeof delivery, her chance of having a baby with Down syndrome at delivery is 1 in 1140. The risk for any chromosome abnormality at delivery is 1 in 920. . Available screening and testing options to further assess the risk were reviewed with the patient. Screening tests are designed to provide an individualized risk, but are not definitive diagnostic tests. Screening is used to assist in identifying pregnancies at increased risk for chromosome aneuploidy including, but not limited to, Down syndrome, trisomy 18, and trisomy 13. The underlying etiologies and clinical features of these conditions were reviewed. cell-free DNA testing is a aneuploidy screening option which detects cell-free DNAin a maternal blood sample after 10 weeks gestation. Cell- free DNA is analyzed for over-representation of material from chromosomes 13, 18, and 21. If there is an over-representation of material from one of these chromosomes, a trisomy is suspected. The X and Y chromosomes are also analyzed to determine sex. For sex, trisomy 18, and trisomy 21, the detection rate is 99%. The detection rate for trisomy 13 is 92%. The false positive rate for all conditions is less than 1%. Some versions of cell free DNA screening include screening for sex chromosome anomalies including Suresh syndrome, Klinefelter syndrome, Triple X syndrome and Carlos Enrique's (XYY) syndrome. These conditions are highly variable and may or may not significantly alter management. Detection rates are approximately 90- 93% for sex chromosome aneuploidy. [facility] Panorama screen will also detect Triploidy. In 3-5% of cases, the results are uninformative and a second sample may be requested or other methods of aneuploidy testing will be recommended. These complications are seen more commonly in women withan elevated BMI (>30). The limitations of genetic screening include that it does not screen for all possible genetic or congenital conditions, a negative result does not ensure an unaffected , and that screening can have unexpected or unintentional findings. A negative result indicates the is a low risk for aneuploidy and a positive result indicates a significantly increased risk. Falsepositives and false negatives are possible. It is recommended that all positive results are followedup by diagnostic testing such as CVS or amniocentesis. Cell free DNA screening does not screen for neural tube defects. An alpha fetoprotein (AFP) serum screen can be performed between 15 and 22 weeks to estimate the risk of a neural tube defect. The sensitivity of AFP is >80%. Diagnostic tests such as CVS and amniocentesis can provide definitive results about the risk of aneuploidy or other genetic conditions. CVS is typically conducted between 10 and 13 weeks' gestation, has a 1/500 risk for miscarriage, and has a greater than 98% detection rate for aneuploidy. Amniocentesis is performed after 14 weeks' gestation, has a 1/900 risk for miscarriage associated with the procedure, and has an aneuploidy detection rate greater than 99%. Further screening, a level II ultrasound at 18 to 20 weeks' gestation, is also an option to the patient. Approximately 50% of fetuses with Down syndrome and greater than 90% of fetuses with trisomy 13 or 18 display some abnormality that is detectable by a detailed ultrasound at this timeframe in . Greater than 95% of fetuses with a neural tube defect with be detected at this ultrasound. Carrier screening for select childhood-onset recessive and X-linked conditions was reviewed. ACOG recommends all women be offered carrier screening for Cystic Fibrosis and Spinal Muscular atrophy. The general population carrier frequencies range from 1 in 25 to 1 in 94 for CF and 1 in 35 to 1in 117 for SMA (depending on ethnicity). We also reviewed the availability of expanded/santos- ethnic carrier screening which screens for carrier status of 100's of recessive and X-linked conditions.These conditions are individually rare, but, collectively, they are common and, together, they account for more than 10% of pediatric deaths. Approximately 80% of children diagnosed with the disorders on thispanel will have no known family history of the disease. Expanded carrier screening does not screen couples for adult onset diseases, autosomal dominant conditions, aneuploidy, reasons for infertility or miscarriages, multifactorial disorders and it does not screen for all possible childhood onset disorders. The purpose of expanded carrier screening is to determine if a couple is at increased risk of having a child with some of the most common childhood onset recessive and X-linked conditions. The detection rate of pathogenic mutations is 90-99% for most genes tested but may vary based on a priori risks. Negative results are risk-reducing, but not risk eliminating. Variants of uncertain significance (VUS's) are not reported by the laboratory. This screening test does not screen for all possible autosomal recessive or X-linked genetic conditions. Some carriers may have implications for their own health such as carriers of Ataxia Telangiectasia or Fragile X syndrome. If the patient is a carrier ofon of the conditions, all first degree relatives are at 50% risk to also be a carrier. The genetic information non-discrimination act (MEMO) protects individuals from employers and health insurance providers from treating a genetic testing results as a pre-existing condition. Results of these screens are typically available within 2-3 weeks. If the patient is a carrier of a recessive condition, carrier screening will then be offered to her partner. The cost of this testing was reviewed. The couple's family history was assessed and no additional testing is indicated at this time. There were no factors that may significantly increase the risk for defects or intellectual disability in the fetus. This risk assessment is based upon medical and family history information as provided by the patient, and may change should new information be obtained. PLAN: 1. Cell free DNA screening pursued via the Panorama Screen 2. Carrier screening declined 3. Ms. Mcdonald will complete a blood draw today . 4. Ms. Mcdonald will send the father of the baby's cousin's genetic testing results for review The patient was encouraged to contact me with any further questions she may have. It was a pleasure to meet Ms. Mcdonald. She verbalized understanding of the above information. Patient Education: The impression and plans were explained in detail. There were no apparent barriers to learning or understanding. Questions were answered. 100% of 44 minutes spent on counseling and coordination of care. Nereida Shea MS, [facility] Reference: Mesfin Dupree RT, Yoandy BROWN. Cri Du Chat Syndrome. [Updated 2020Apr 25]. In: [employer] [Internet]. [place] ([place]): [employer]; 2020-. Available from: https://www.n i.nlm.nih.gov/books/EKK131904/ Electronically signed by Nereida Shea M.S., [facility] at 08/23/2021 9:36 AM CDT documented in this encounter Plan of Treatment Not on filedocumented as of this encounter Results Panorama Screen - Sent Out Lab (08/22/2021 3:52 PM CDT) [facility] Method Time Signature Panorama SEE COMMENT 08/29/2021 ANNIE 9:25 AM CDT Screen Comment: For final report, select Lab-Send Out L ab Results hyperlink below. Specimen Anatomical Collection Method Collection Time Receive d Time (Source) Location / / Volume Laterality Blood (Blood, 08/22/2021 3:52 PM 08/23/20 8:39 Venous) CDT AM CDT Narrative [employer] - 08/29/2021 9:25 AM CDT Specimen Information: Specimen ID: [id number] Specimen Type: Blood Specimen Collection Start Date: ??3:52 PM Specimen Received Date: 08/23/2021 ??8: 39 AM Specimen ID: [id number] Specimen Type: Blood Specimen Collection Start Date: ??3:52 PM Angela Hassan M.D., Ph.D. LAB GENETIC TESTING Performing Organization Address City/State/ZIP Code Phon e Number [employer]. [address] [place] [address] [address] [place] [address] [place] [address] documented in this encounter Visit Diagnoses Diagnosis Counseling Genetic Procreative Managemen t - Primary High Risk (HCC) Encounter For Supervision Of Normal Firs t Unspecified Trimester (HCC) Encounter For Supervision Of Normal Firs t Unspecified Trimester (HCC) documented in this encounter Additional Health Concerns Assessment Noted Time PHQ-9 Depression Total Score: 1 08/01/2021 1:42 PM CDT documented as of this encounter Care Teams Aerial Photographer Relationship Specialty Start Date End Date Belkys Marshall APRN, C.N.P., M.S. PCP - General Family Medicine 11/16/[address] [place] [address] documented as of this encounter
--- OUTSIDE RECORDS SUMMARY | 2022-08-31 12:35 | XMS_ITS | Encounter Summary ---
:1995 Author Organization [facility] Address [address] [place] [address] Care Team Providers Name Role Phone Belkys Marshall APRN C.N.P., M.S. Primary Care Provider +1- [phone] Reason for Referral Specialty Diagnoses / Procedures Referred By Contact Refer red To Contact RST [address] [place] [address] Referral ID Status Reason Start Date Expiration Date Visits Requ ested Visits Authorized Encounter Details Date Type Department Care Team Description 08/22/2021 Immunization Department of Alan Olivier For COVID-19 Medicine, Anirudh Mcnamara M.D. Vaccine Immunization Clinic [place], [address] [place] [address] [facility] in [place], [address] [place] [address] [facility] [address] (Work) [place], [place] [phone] (Fax) [phone] Social History Tobacco Use Types Packs/Day Years [...] or relatives? How often do you attend anabaptist or 1 to 4 times per year 11/11 caodaism services? Do you belong to any clubs or Yes 11/23/2021 organizations such as anabaptist groups, unions, fraExpert360 or athletic groups, or school groups? How [...] Name Type Priority Associated Diagnoses [facility] immunization Outpatient Referral Routine Encounter For E xpected: office visit Booster COVID-19 Vaccine 07/2021, Immunization Expires: 08/22/2024 documented as of this encounter Visit Diagnoses Diagnosis Encounter For COVID-19 Vaccine Immunizat ion documented in this encounter Additional Health Concerns Assessment Noted Time PHQ-9 Depression Total Score: 1 08/01/2021 1:42 PM CDT documented as of this encounter Care Teams Gold Wheel Blocker And Polisher Relationship Specialty Start Date End Date Belkys Marshall, KARL, C.N.P., M.S. PCP - General Family Medicine 1/6/20 [address] [place] [address] documented as of this encounter
--- OUTSIDE RECORDS SUMMARY | 2022-08-31 12:35 | XMS_ITS | Encounter Summary ---
:1995 Author Organization [facility] Address [address] [place] [address] Care Team Providers Name Role Phone Belkys Marshall APRN, C.N.P., M.S. Primary Care Provider +1- [phone] Encounter Details Date Type Department Care Team Description 08/22/2021 Hospital Encounter Department of Shiela Barraza, High Risk Obstetrics and Laverne BARAJAS, Gynecology in [address] [place] [phone] Social History Tobacco Use Types Packs/Day Years [...] tablet,chewable Take 3 tablets by 0 022 uoejpsi-Fp-cbgi-FA 27 mouth daily. mg iron- 1 mg [...] Diagnosis US OB FIRST RAD - Routine 08/22/2021 3:42 High Risk Results for this TRIMESTER (most inpatients PM CDT procedure a re in and all the results outpatients) section. documented in this encounter Results US OB First Trimester (08/22/2021 3:42 PM [...] ??Female Ref Phys: ??SHIELA BARRAZA Exam Date: 08/22/2021 Procedure: US OB FIRST TRIMESTER Exam Site: [facility][id number] Plurality: 1 OBHx: [G:(1)] ?F [...] vi sualized. heart rate is 151 BPM. Anchor rump length measures 6.46 cm. The nuchal [...] ( Kris), R.D.M.S. on 08/22/2021 3:45:28 PM. Fishing Rod Assembler: ??Rae Epstein (Kris) , RSidra.M.S. Thank You For This Referral Procedure Note Jonny Scott M.B.BKasey Bloom - 08/22 LAUREL CARABALLO OB Exam, 08/22/2021 EXAM INFORMATION Patient Name: LAUREL CARABALLO : 1995 Age: 26 yrs Sex: Female Ref Phys: SHIELA BARRAZA Exam Date: 08/22/2021 Procedure: US OB FIRST TRIMESTER Exam Site: [facility][id number] Plurality: 1 OBHx: [G:(1)] F [...] vi sualized. heart rate is 151 BPM. Anchor rump length measures 6.46 cm. The nuchal [...] Rae Epstein), R.D.M.S. on 08/22/2021 3:45:28 PM. Fishing Rod Assembler: Rae Epstein (Rakesh), StevenM.S. Thank You For This Referral Shiela Maddox Demetrius BARAJAS C.N.P., M.S.N. IMG OB US PROCEDURE S documented in this encounter Visit Diagnoses Diagnosis High Risk (HCC) documented in this encounter Additional Health Concerns Assessment Noted Time PHQ-9 Depression Total Score: 1 08/01/2021 1:42 PM CDT documented as of this encounter Care Teams Talent Development Coordinator Relationship Specialty Start Date End Date Blekys Marshall APRN C.N.P., M.S. PCP - General Family Medicine 11/16/19 [address] [place] [address] documented as of this encounter
--- OUTSIDE RECORDS SUMMARY | 2022-08-31 12:36 | XMS_ITS | Encounter Summary ---
:1995 Author Organization [facility] Address [address] [place] [address] Care Team Providers Name Role Phone Belkys Marshall APRN C.N.P., M.S. Primary Care Provider +1- [phone] Reason for Visit Reason Comments Urinary Symptom COVID Nurse Line Encounter Details Date Type Department Care Team Description 06/01/2021 [facility] [place]om; [facility] Briseyda Otero R.N. Nurse Line Clinic [facility], in [address] [place] [address] [address] [phone] [place], [place] [phone] [address] (Work) [phone] Social History Tobacco Use Types Packs/Day Years [...] 1 to 4 times per year 11/11 sikh services? Do you belong to any clubs [...] this encounter Miscellaneous Notes Telephone Encounter - Briseyda Torres R.N. - 06/01/2021 3:00 PM CDT COVID-19 Nurse Line Screening ASSESSMENT Region Select appropriate region: : [place] Age Pathway Select approprite pathway: : Adult Have you had close contact* with a person who has a LABORATORY CONFIRMED case of COVID-19 in the past 14 days?: No (Continue Screening) In the last 48 hours, have you had a fever* OR symptoms that are unrelated to a preexisting illness?: No symptoms noted (Continue Screening) Have you tested positive for COVID-19 in the last 90 days?: No (Continue Screening) Have you been advised to undergo testing or are you requesting testing?: No, testing not recommended(End Screening) Testing Recommendation Endpoint Is testing recommended? : Not recommended to test PLAN Endpoint recommendation: Screening negative, testing not indicated at this time Standard Care Points -Get a COVID -19 vaccine as soon as you can if not fully vaccinated. -Wash hands frequently with soap and water, use hand loss prevention investigator if soap and water aren't available. -Wear a mask over your nose and mouth to help protect yourself and others if not fully vaccinated and having no symptoms -Stay 6 feet between yourself and others who don't live with you. -Avoid crowds and poorly ventilated indoor spaces. -Seek emergent care if any of the following occur Trouble breathing Bluish lips or face Persistent pain or pressure in the chest New confusion or inability to rouse. -Notify your regular care provider of any new or worsening symptoms. Asymptomatic without exposure Carepoints: Testing is not recommended at this time. If you become symptomatic, please call back for additional screening. Education: Patient/caregiver able to teach back Patient agreeable to plan of care: Yes The following references were used: [facility] novel coronavirus (COVID- 19) resources Telephone Encounter - Briseyda Torres R.N. - 06/01/2021 2:41 PM CDT Chief Complaint / Reason for Call Patient is a 26 y.o. female calling regarding Urinary Symptom. Assessment Concern: Continued dysuria and urinary frequency. Urinary symptoms originally reported 05/12/2021 and treated with 5 day course of Nitrofurtoin. Symptoms decreased with treatment but never totally resolved. Reports a slight increase in symptoms over the past 24 hours. Feels warm but denies fever. No flank pain. Present for: 20 days Home cares tried: Fluids, course of antibiotics Calling to request: Appointment The recommended disposition is See a health care provider within 24 hours. Reason for Disposition ??? Urinating more frequently than usual (i.e., frequency) Protocols used: URINARY [id number] Care Advice Patient/Caregiver understands and will follow care advice?: Yes, able to teach back CALL BACK IF: * Fever occurs * Unable to urinate and bladder feels full * You become worse. Transferred to the patient appointment desk to schedule. documented in this encounter Plan of Treatment Not on filedocumented as of this encounter Visit Diagnoses Not on filedocumented in this encounter Care Teams Director Of Trauma Relationship Specialty Start Date End Date Belkys Marshall APRN, C.N.P., M.S. PCP - General Family Medicine 11/16/19 [address] [place] [address] documented as of this encounter
--- OUTSIDE RECORDS SUMMARY | 2022-08-31 12:36 | XMS_ITS | Encounter Summary ---
:1995 Author Organization [facility] Address [address] [place] [address] Care Team Providers Name Role Phone Belkys Marshall APRN C.N.P., M.S. Primary Care Provider +1- [phone] Encounter Details Date Type Department Care Team Description 03/21/2021 Specialty Pharmacy [facility] Veronica Cornelius [address] Varsha Bernardo, Pharm.D., R.Ph. [address] [address] [place], [place] [phone] (Wo rk) Social History Tobacco Use Types [...] Encounter - Veronica Cornelius, Pharm.D., R.Ph. - 03/21/2021 9:12 AM CDT SUBJECTIVE Addendum 03/22/21 5:21 PM CDT SUBJECTIVE REASON FOR VISIT Specialty pharmacy reassessment [...] to the below two questionnaires on the [facility] patient chart, encounter department: [facility] dated: 03/21/2021) - UQBLST39 questionnaire OBJECTIVE Lab Results Component Value Date WBC 6.2 03/01/2021 HGB 14.1 03/01/2021 HCT 41.7 03/01/2021 MCV 96.3 03/01/2021 PLT 333 03/01/2021 ASSESSMENT / PLAN 1. Quality of Life From Iyqdcz47 questionnaire information: Patient currently rating quality of life as 'Very Good'. Comparing QOL information from the prior QOL survey the patient reports no change. 2. Summary and continued Goals of therapy Based on the above information, the patient's therapy is appropriate to continue. -Promote medication adherence. -Evaluate other newly prescribed therapies as needed for drug-drug and drug- disease appropriateness. Specialty medications reconciled and good karin attempt made in maintaining a complete medication list (via dispensing program) at each dispense of medication. -Mitigate, treat or prevent side effects. The patient does not meet the definition of high risk by MCSP definition. Follow-up: 6 months Yuriy Chappell, Pharm.D., R.Ph. Original note: SUBJECTIVE REASON FOR VISIT Specialty pharmacy reassessment of patient's medication knowledge, adherence, and side effects usingpatient reported answers to patient portal driven questionnaire(s). HISTORY OF PRESENT ILLNESS Ms. Laurel Mcdonald is a 26 y.o. female, who is followed by the specialty pharmacy service for Stelara (ustekinumab) . (Indication:crohn's disease) Patient has upcoming appt with pharmacist and/or provider to discuss medication plan for trying to conceive. Patient questionnaire(s) submitted by patient via patient portal (Please refer to the below two questionnaires on the [facility] patient chart, encounter department: [facility] dated: 03/17/21) 1) Specialty Pharmacy Medication Adherence Questionnaire 2) XIBKFZ94 questionnaire-PATIENT DID NOT COMPLETE OBJECTIVE Lab Results Component Value Date CREATININE 0.85 03/01/2021 ASSESSMENT / PLAN 1. Medication Knowledge and Adherence In reference to the subjective patient questionnaire above and reviewing refill history in the [facility] record. The patient/caregiver reports appropriate medication knowledge. No adherence issues identified. 2. Medication Side effects/Adverse Events In reference to the 'Specialty Pharmacy Medication Adherence Questionnaire': The patient reports no medication side effects requiring attention. No reported adverse drug reactions, allergic reactions, overdoses or medication errors. 3. Effectiveness Patient reports medication effectiveness to be: 'excellent'. 4. Quality of Life From Gawomr64 questionnaire information: Patient currently rating quality of life as unable to obtain. Patient has not yet completed the PROMIS 10 questionnaire 5. Summary and continued Goals of therapy [...] of high risk by MCSP definition. Follow-up: 2 weeks (for missing portion of questionnaire series.) Veronica Cornelius, Pharm.D., R.Ph. documented in this encounter Plan of Treatment Not on filedocumented as of this encounter Visit Diagnoses Not on filedocumented in this encounter Care Teams Reject Opener And Filler Relationship Specialty Start Date End Date Belkys Marshall, KARL, C.N.P., M.S. PCP - General Family Medicine 11/16/19 [address] [place] [address] documented as of this encounter
--- OUTSIDE RECORDS SUMMARY | 2022-08-31 12:36 | XMS_ITS | Encounter Summary ---
:1995 Author Organization [facility] Address [address] [place] [address] Care Team Providers Name Role Phone Belkys Marshall APRN, C.NVira., M.S. Primary Care Provider +1- [phone] Reason for Visit Reason Comments Med Refill Encounter Details Date Type Department Care Team Description 06/01/2021 Refill Division of Gastroenterology in [facility] Refill [place], [place] Magdalena Martinez.B.S. [address] [place] [address] [place] [phone] [place], [place] [phone] (Wo rk) Social History Tobacco Use Types [...] or relatives? How often do you attend hinduism or 1 to 4 times per year 11/11 voodoo services? Do you belong to any clubs or Yes 11/23/2021 organizations such as hinduism groups, unions, fraternal or athletic groups, or [...] to sleep or slept in a senior living (including now)? Education Answer Date Recorded What [...] on filedocumented in this encounter Care Teams Galvanizer Zinc Relationship Specialty Start Date End Date Belkys Marshall APRN, C.N.P., M.S. PCP - General Family Medicine 11/16/19 [address] [place] [address] documented as of this encounter
--- OUTSIDE RECORDS SUMMARY | 2022-08-31 12:36 | XMS_ITS | Encounter Summary ---
:1995 Author Organization [facility] Address [address] [place] [address] Care Team Providers Name Role Phone Josee Pena APRN, C.N.P., M.S. Primary Care Provider +1- [phone] Reason for Visit Reason Comments Bladder Infection Encounter Details Date Type Department Care Team Description 05/12/2021 Nurse Triage Department of [facility] Alisha Mccarthy [facility] Infection Medicine, [facility], in [address] [place] [address] [address] [phone] [place] [address] Social History Tobacco Use Types Packs/Day [...] or relatives? How often do you attend pentecostalism or 1 to 4 times per year 11/11 cheondoism services? Do you belong to any clubs or Yes 11/23/2021 organizations such as pentecostalism groups, unions, fraternal or athletic groups, or [...] this encounter Miscellaneous Notes Addendum Note - Josee Pena APRN, C.N.P., M.S. - 05/12/2021 4:14 PM CDT Addended by: JOSEE PENA on: 05/12/2021 04:14 PM Modules accepted: Orders Addendum Note - Alicia Mendosa R.N. - 05/12/2021 4:03 PM CDT Addended by: ALICIA MENDOSA on: 05/12/2021 04:03 PM Modules accepted: Orders Telephone Encounter - Alisha Mccarthy R.N. - 05/12/2021 12:25 PM CDT Chief Complaint / Reason for Call Patient is a 26 y.o. female calling regarding Bladder Infection. Assessment Concern: Laurel is calling to see if she can be treated with antibiotics. She believes she has a UTI. She started taking AZO 3 days ago for burning with urination, cloudy urine, and frequency, but yet retention. Her symptoms seem to be getting more bothersome. Laurel did not pass the Telephone Triage urinary tract infection, because Laurel takes a couple of medications that affect her immune system. Protocol states that Laurel should come into the clinic to have a dip stick urine done. She states that she is an hour away, and would like to ask MARCO Rizvi if she will treat. Present for: 3 days. Home cares tried: AZO, fluids Calling to request: Treatment over the phone. The recommended disposition is Contact a health care provider within 4 hours. Requesting provider if: Do you want to treat Laurel for a UTI? CARE POINTS REVIEWED - If symptoms worsen or continue at the end of the course of medication, call primary provider. - For women ages 16-55: Antibiotics may decrease the efficacy of contraceptive medications includingtablets, NuvaRing and patch. If using these medications, an additional form of control must beused until the end of patient's current cycle. - If you have been prescribed Cefdinir and are taking a multi-vitamin or an iron supplement, take the medications 3 hours apart to ensure absorption of Cefdinir. - Drink extra fluids. - Urinate frequently and avoid retaining your urine for a long time when you feel the urge to void. - Empty bladder after intercourse documented in this encounter Plan of Treatment Not on filedocumented as of this encounter Visit Diagnoses Not on filedocumented in this encounter Care Teams Licensed Final Expense Agents Relationship Specialty Start Date End Date Josee Pena APRN, C.N.P., M.S. PCP - General Family Medicine 11/16/19 [address] [place] [address] documented as of this encounter
--- OUTSIDE RECORDS SUMMARY | 2022-08-31 12:36 | XMS_ITS | Encounter Summary ---
:1995 Author Organization [facility] Address [address] [place] [address] Care Team Providers Name Role Phone Belkys Marshall APRN, C.N.P., M.S. Primary Care Provider +1- [phone] Reason for Referral Outpatient (Routine) - Closed Specialty Diagnoses / Procedures Referred By Contact Refer red To Contact Diagnoses Polyp Gallbladder [facility], [facility] Procedures US Gallbladder and or Biliary Ducts M.B.B.S. [address] [place] [phone] Referral ID Status Reason Start Date Expiration Date Visits Requ ested Visits Authorized [id number] Closed 08/31/2020 08/31/2021 1 1 Reason for Visit Outpatient (Routine) - Closed Specialty Diagnoses / Procedures Referred By Contact Refer red To Contact Diagnoses Polyp Gallbladder [facility], [facility] Procedures US Gallbladder and or Biliary Ducts M.B.B.S. [address] [place] [phone] Referral ID Status Reason Start Date Expiration Date Visits Requ ested Visits Authorized [id number] Closed 08/31/2020 08/31/2021 1 1 Encounter Details Date Type Department Care Team Description 03/01/2021 Hospital Encounter Department of Lucinda, Polyp Gallbladder Radiology, [facility], in M.B.B.S. [place], [place] [address] [facility] [address] [place] [phone] Social History Tobacco Use Types Packs/Day Years [...] 1 to 4 times per year 11/11 baptist services? Do you belong to any clubs [...] 1 TABLET BY MOUTH 180 tablet 0 0 06/01/2021 (PURINETHOL) 50 mg DAILY ON AN EMPTY tablet STOMACH norethindrone Take 1 tablet (0.35 mg 84 tablet 4 02/01/2021 06/02/2021 (Jemima) 0.35 mg total) by mouth daily. tablet nortriptyline Take 1 capsule (25 mg 90 capsule 1 02/01/2021 06/02/2021 (PAMELOR) 25 mg total) by mouth at capsuleIndications: bedtime. Nausea ondansetron ODT Take 1 tablet (4 mg 30 tablet 0 07/29/2020 01/30/2022 (ZOFRAN-ODT) 4 mg total) by mouth every disintegrating 8 (eight) hours as tabletIndications: needed for nausea or Colitis Crohn's (HCC) vomiting. Stelara 90 mg/mL INJECT 90 MG (ONE 2 mL 0 11/15/2020 0 03/21/2021 injectionIndications: SYRINGE) Crohn's Disease (HCC) SUBCUTANEOUSLY EVERY 8 WEEKS, PLEASE MAKE AN APPOINTMENT TO CONTINUE MEDICATION. documented as of this encounter Plan of Treatment Not on filedocumented as of this encounter Procedures Procedure Name Priority Date/Time Associated Comments Diagnosis US GALLBLADDER AND RAD - Routine 03/01/2021 11:10 Polyp Gallbladder Results for this OR BILIARY DUCTS (most inpatients AM CDT procedu re are in and all the results outpatients) section. documented in this encounter Results US Gallbladder and or Biliary Ducts (03/01/2021 11:10 AM CDT) Anatomical Region Laterality Modality Abdomen, Ultrasound RST LOS, Ultrasound ARZ LOS, Ultrasound FLA N/A Ultrasound LOS Specimen (Source) Anatomical Collection Method Collection Time Re ceived Time Location / / Volume Laterality 03/01/2021 11:18 AM CDT Impressions 03/01/2021 11:21 AM CDT No significant change in the small gallbladder polyps measuring up to 4 mm. Narrative 03/01/2021 11:21 AM CDT EXAM: US GALLBLADDER AND OR BILIARY DUCTS COMPARISON: Right upper quadrant ultraso und 08/30/2020 FINDINGS: Gallbladder: Two small avascular gallbla dder polyps measuring up to 4 mm, not significantly changed from prior exam. N o gallstones. No wall thickening or pericholecystic fluid. ??Negative sonogr aphic Sosa sign. Intrahepatic ducts: Not dilated. Common duct: Not dilated. Aorta: Normal caliber. Procedure Note Silvia Acosta M.D. - 03/01/2021Forma tting of this note might be different from the original. EXAM: US GALLBLADDER AND OR BILIARY DUCT S COMPARISON: Right upper quadrant ultraso und 08/30/2020 FINDINGS: Gallbladder: Two small avascular gallbla dder polyps measuring up to 4 mm, not significantly changed from prior exam. N o gallstones. No wall thickening or pericholecystic fluid. Negative sonograp hic Sosa sign. Intrahepatic ducts: Not dilated. Common duct: Not dilated. Aorta: Normal caliber. IMPRESSION: No significant change in the small gallb ladder polyps measuring up to 4 mm. Juan Jama IMG US PROCEDURES documented in this encounter Visit Diagnoses Diagnosis Polyp Gallbladder documented in this encounter Care Teams Launch Check Out Relationship Specialty Start Date End Date Belkys Marshall APRN, C.N.P., M.S. PCP - General Family Medicine 11/16/[address] [place] [address] documented as of this encounter
--- OUTSIDE RECORDS SUMMARY | 2022-08-31 12:36 | XMS_ITS | Encounter Summary ---
:1995 Author Organization [facility] Address [address] [place] [address] Care Team Providers Name Role Phone Belkys Marshall APRN, C.NVira., M.S. Primary Care Provider [phone]- [phone] Reason for Visit Reason Onset Date Comments Outpatient COVID-19 Testing 02/23/2021 Encounter Details Date Type Department Care Team Description 02/23/2021 External Outreach Department of Family Post, Donato An, Contact With [facility] Medicine, [address] M.D. (Suspected) Exposure Street Professional [address] To COVID-19 (Primary Building in [place], [place] Dx) [place] [phone] [address] [phone] [place], [place] (Work) [phone] Social History Tobacco Use Types Packs/Day Years [...] or relatives? How often do you attend christian or 1 to 4 times per year 11/11 holiness services? Do you belong to any clubs or Yes 11/23/2021 organizations such as christian groups, unions, fraternal or athletic groups, or [...] documented as of this encounter Progress Notes Nathan Solis, R.N. - 02/23/2021 7:14 AM CDT Encounter created for COVID-19 screening. documented in this encounter Plan of Treatment Not on filedocumented as of this encounter Procedures Procedure Name Priority Date/Time Associated Comments Diagnosis SARS CORONAVIRUS 2 Routine 02/23/2021 9:10 AM Contact With And Results for this PCR DETECT, V CDT (Suspected) procedure are in Exposure To the results COVID-19 section. documented in this encounter Results SARS Coronavirus 2 PCR Detect, V Asymptomatic (02/23/2021 9:10 AM CDT) [facility] Method Time Signature SARS-CoV-2 Swab, 02/23/2021 [facility] Specimen Nasopharynx 10:18 PM Source CDT SARS-CoV-2 Undetected Undetected 02/23/2021 [facility] RNA by PCR 10:18 PM CDT Comment: SARS-CoV-2 RNA absent. This result does not rule out COVID-19 in the patient, as the sensitivity of the test depends o n the timing of the specimen collection and the quality of the specim en. Result should be correlated with patient's history and clinical presentat ion. ----ADDITIONAL INFORMATION---- This RT-PCR test using the brandyn SARS-Co V-2 assay ([employer] performed on the brandyn 6800/8800 S ystem has received Emergency Use Authorization (EUA) by the U.S. Food and Drug Administration, and is modified from the procedures analyst's instructions wit h a bridging study. Performance characteristics were verified by [facility] inic in a manner consistent with CLIA requirements. Fact sheets for this Emergency Use Autho rization (EUA) assay can be found at the following links: For Healthcare Providers: https://www.[employer] a.gov/media/244089/download For Patients: https://www.fda.gov/media/ 281828/download Specimen Anatomical Collection Method Collection Time Receive d Time (Source) Location / / Volume Laterality Varies 02/23/2021 9:10 AM 1:48 (Nasopharynx) CDT PM CDT Donato Ruff M.D. LAB MICROBIOLOGY - GENERAL O RDERABLES Performing Organization Address City/State/ZIP Code Phon e Number [facility] [address] [place] [address] [address] [facility] [place] [address] Laboratory Medicine and Pathology [address] [place] [address] Dr. VALLES documented in this encounter Visit Diagnoses Diagnosis Contact With And (Suspected) Exposure To COVID-19 - Primary documented in this encounter Additional Health Concerns Infection Onset Date Last Indicated Resolved Time COVID19 Pending 02/23/2021 02/23/2021 02/23/2021 10:19 PM CDT documented as of this encounter Care Teams Trades Helper Relationship Specialty Start Date End Date Belkys Marshall, KARL, C.N.P., M.S. PCP - General Family Medicine 11/16/[address] [place] [address] documented as of this encounter
--- OUTSIDE RECORDS SUMMARY | 2022-08-31 12:36 | XMS_ITS | Encounter Summary ---
:1995 Author Organization [facility] Address [address] [place] [address] Care Team Providers Name Role Phone Belkys Marshall APRN, C.N.P., M.S. Primary Care Provider +1- [phone] Encounter Details Date Type Department Care Team Description 03/01/2021 Hospital Encounter Department of Lucinda, Crohn' s Disease (HCC) Laboratory Medicine Juan, and [facility], [facility] [address] [place] [address] [place] [address] [place], [place] [phone] (Work) [phone] Social History Tobacco Use Types Packs/Day Years [...] or relatives? How often do you attend restorationist or 1 to 4 times per year 11/11 holiness services? Do you belong to any clubs or Yes 11/23/2021 organizations such as restorationist groups, unions, fraternal or athletic groups, or [...] Name Priority Date/Time Associated Diagnosis Comme nts HEPATIC FUNCTION Routine 03/01/2021 9:36 AM Crohn's Disease Re sults for this PANEL, S CDT (HCC) procedure are i n the results section. CBC WITH Routine 03/01/2021 9:36 AM Crohn's Disease Result s for this DIFFERENTIAL, B CDT ([facility]) procedure ar e in the results section. BASIC METABOLIC Routine 03/01/2021 9:36 AM Crohn's Disease Res ults for this PANEL, S/P CDT (HCC) procedure are i n the results section. documented in this encounter Results CBC with Differential, Blood (03/01/2021 9:36 AM CDT) athologist Signature Hemoglobin 14.1 11.6 - 03/01/2021 DTL 15.0 g/dL 10:25 AM CDT Hematocrit 41.7 35.5 - 03/01/2021 DTL 44.9 % 10:25 AM CDT Erythrocytes 4.33 3.92 - 03/01/2021 DTL 5.13 10:25 AM CDT x10(12)/L MCV 96.3 78.2 - 03/01/2021 DTL 97.9 fL 10:25 AM CDT RBC Distrib Width 12.4 12.2 - 03/01/2021 DTL 16.1 % 10:25 AM CDT Platelet Count 333 157 - 371 03/01/2021 DTL x10(9)/L 10:25 AM CDT Leukocytes 6.2 3.4 - 9.6 03/01/2021 DTL x10(9)/L 10:25 AM CDT Neutrophils 3.53 1.56 - 03/01/2021 DTL 6.45 10:25 AM CDT x10(9)/L Lymphocytes 1.75 0.95 - 03/01/2021 DTL 3.07 10:25 AM CDT x10(9)/L Monocytes 0.60 0.26 - 03/01/2021 DTL 0.81 10:25 AM CDT x10(9)/L Eosinophils 0.23 0.03 - 03/01/2021 DTL 0.48 10:25 AM CDT x10(9)/L Basophils 0.07 0.01 - 03/01/2021 DTL 0.08 10:25 AM CDT x10(9)/L Specimen Anatomical Collection Method Collection Time Receive d Time (Source) Location / / Volume Laterality Blood (Blood, 03/01/2021 9:36 AM 03/01/20 Venous) CDT 10:12 AM CDT Juan Jama LAB BLOOD ADD-ON Performing Organization Address City/State/ZIP Code Phon e Number [facility] - [address] [place] [phone] [facility] [place] [address] [facility] [address] [facility] Hepatic Function Panel (03/01/2021 9:36 AM CDT) [facility] Method Time Signature Bilirubin, Total, S 0.6 <=1.2 03/01/2021 DTL mg/dL 11:16 AM CDT Bilirubin, Direct, S <0.2 0.0 - 0.3 03/01/2021 DTL mg/dL 11:16 AM CDT Aspartate 16 8 - 43 03/01/2021 DTL Aminotransferase U/L 11:49 AM CDT (AST), S Alanine 8 7 - 45 03/01/2021 DTL Aminotransferase U/L 11:16 AM CDT (ALT), S Alkaline 42 35 - 104 03/01/2021 DTL Phosphatase, S U/L 11:16 AM CDT Albumin, S 4.6 3.5 - 5.0 03/01/2021 DTL g/dL 11:16 AM CDT Protein, Total, S 6.7 6.3 - 7.9 03/01/2021 DTL g/dL 11:16 AM CDT Specimen Anatomical Collection Method Collection Time Receive d Time (Source) Location / / Volume Laterality Blood (Blood, 03/01/2021 9:36 AM 03/01/20 Venous) CDT 10:16 AM CDT Juan Jama LAB BLOOD ADD-ON Performing Organization Address City/State/ZIP Code Phon e Number [facility] - [address] [place], [place] [phone] [facility] [place] [address] [facility] [address] Basic Metabolic Panel (03/01/2021 9:36 AM CDT) P athologist Signature Potassium, S 4.3 3.6 - 5.2 03/01/2021 DTL mmol/L 11:16 AM CDT Sodium, S 140 135 - 145 03/01/2021 DTL mmol/L 11:16 AM CDT Chloride, S 106 98 - 107 03/01/2021 DTL mmol/L 11:16 AM CDT Bicarbonate, S 22 22 - 29 03/01/2021 DTL mmol/L 11:16 AM CDT Anion Gap 12 7 - 15 03/01/2021 DTL 11:16 AM CDT BUN (Blood Urea 7 6 - 21 03/01/2021 DTL Nitrogen), S mg/dL 11:16 AM CDT Creatinine 0.85 0.59 - 03/01/2021 DTL 1.04 mg/dL 11:16 AM CDT eGFR-Non >90 >=60 03/01/2021 DTL Black/ mL/min/BSA 11:16 AM CDT [place] Comment: ----ADDITIONAL INFORMATION---- Estimated GFR calculated using the 2009 CKD_EPI creatinine equation. eGFR-Black/ >90 >=60 mL/min/BSA 2020 11:16 AM CDT DTL Comment: ----ADDITIONAL INFORMATION---- Estimated GFR calculated using the 2009 CKD_EPI creatinine equation. Calcium, Total, S 9.2 8.6 - 10.0 mg/dL 03/01/2021 11:1 6 AM CDT DTL Glucose, S 83 70 - 140 mg/dL 03/01/2021 11:16 AM CDT DTL Specimen Anatomical Collection Method Collection Time Receive d Time (Source) Location / / Volume Laterality Blood (Blood, 03/01/2021 9:36 AM 04/21/20 21 Venous) CDT 10:16 AM CDT Juan Jama LAB BLOOD ADD-ON Performing Organization Address City/State/ZIP Code Phon e Number [facility] - [address] [place], [place] [address] [facility] [place] [address] [facility] [address] [facility] documented in this encounter Visit Diagnoses Diagnosis Crohn's Disease (HCC) documented in this encounter Care Teams Composite Bond Technician Relationship Specialty Start Date End Date Belkys Marshall APRN, C.N.P., M.S. PCP - General Family Medicine 11/16/[address] [place] [address] documented as of this encounter
--- OUTSIDE RECORDS SUMMARY | 2022-08-31 12:36 | XMS_ITS | Encounter Summary ---
:1995 Author Organization [facility] Address [address] [place] [id number] Care Team Providers Name Role Phone Belkys Marshall APRN, C.N.P., M.S. Primary Care Provider [phone] Reason for Referral Outpatient (Routine) - Closed Specialty Diagnoses / Procedures Referred By Contact Refer red To Contact Belkys Marshall APRN, C.NMelanie [facility] Y[facility]ena M.S. [address] [place] [phone] Referral ID Status Reason Start Date Expiration Date Visits Requ ested Visits Authorized [id number] Closed 02/01/2021 02/01/2022 1 1 Reason for Visit Reason Comments Urinary Tract Infection Appointment Request (Routine) - Closed Specialty Diagnoses / Procedures Referred By Contact Ericka ramesh To Contact Family Medicine Referral ID Status Reason Start Date Expiration Date Visits Requ ested Visits Authorized [id number] Closed 01/31/2021 01/31/2022 1 1 Encounter Details Date Type Department Care Team Description 02/01/2021 Office Visit Department of Belkys Greene, Dee ptom Urinary (Primary Dx); Medicine, [facility] OPHTHALMIC MEDICAL TECHNOLOGISTLaverne Snyder, Pap S mear Examination; Clinic [facility], in M.S. Screening For Venereal Disease; [place], [place] [address] [facility] Adult; [address] Claudio Hernandez [place], [place] Colitis Crohn's (HCC); [place] [address] Nausea; [phone] Polyp Gallbladder; Fatigue Social History Tobacco Use Types Packs/Day Years [...] or relatives? How often do you attend druze or 1 to 4 times per year 11/11 jainism services? Do you belong to any clubs or Yes 11/23/2021 organizations such as druze groups, unions, fraternal or athletic groups, or [...] Sign Reading Time Taken Comments Blood Pressure 109/73 02/01/2021 9:52 AM CDT average Pulse 97 02/01/2021 9:52 AM CDT Temperature 36.7 ??C (98.1 ??F) 02/01/2021 9:52 AM CDT Respiratory Rate - - Oxygen Saturation - - Inhaled Oxygen Concentration - - Weight 63.5 kg (139 lb 15.9 oz) 02/01/2021 9:52 AM CDT Height - - Body Mass Index 22.85 07/29/2020 10:03 AM CDT documented in this encounter Patient Instructions Patient InstructionsBelkys Marshall APRN, C.N.P., M.S. - 02/01/2021 10:00 AM CDT Urine dip not consistent with UTI. Will send urine culture, test, and STI testing. Will bein touch when I have results to discuss next steps. Pap smear results in 1-3 weeks via portal. Keep me posted on bleeding pattern. If persistent then can consider alternative contraceptive vs. Transvaginal US. documented in this encounter Progress Notes Belkys Marshall APRN, C.NVira., M.S. - 02/01/2021 10:00 AM CDT SUBJECTIVE CHIEF COMPLAINT / REASON FOR VISIT Laurel Mcdonald is a 25 y.o. female, patient of Belkys Marshall APRN, C.NJuliaPJulia, M.S. who presents for evaluation of Urinary Tract Infection. HISTORY OF PRESENT ILLNESS Developed UTI symptoms and completed E-visit on 01/13/2021. Given 7 day course of Macrobid. States symptoms improved, but not entirely resolved. Continues to note cloudy urine and mild dysuria. Denies fever, chills, abdominal pain, abnormal vaginal discharge, odor, or pruritis. Has had change in menses(see health maintenance section). Diagnosis Overview 1. Colitis Crohn's (HCC) Followed by GI. Most recent visit April 2020. Last colonoscopy 04/2020, normal. Enterography of 12/2018 was also normal. Meds: Stelara 90 mg every 8 weeks. Nortriptyline 25 mg daily HS for nausea. Mercaptopurine 50 mg daily to prevent rejection of Stelara. Diagnosed with Crohn's colitis in February 2017. She was initially treated with Remicade however she developed antibodies and had to be switched to Humira and Imuran. She could not tolerate Imuran due to side effects. ??She had a colonoscopy in August 08, 2018 to follow up response which showed mildly active chronic inflammation. Unfortunately, she developed antibodies to Humira and subsequently transitioned to Stelara 10/2018. 2. Fatigue Reports longstanding struggle with fatigue in setting of Crohn's. Worsened Jul 2020. Reports this has since improved and no longer an ongoing concern. 3. Maintenance Health Adult Immunizations: Up-to-date. Tobacco/Alcohol/Illicit drugs: Refer to social history. -Lung cancer screening: Lifetime non-smoker. Diet/Exercise: General diet. Active. BMI: Body mass index is 22.85 kg/m??. BP: BP 109/73 (BP Location: Left arm, Patient Position: Sitting, Cuff Size: Regular) Comment: average Glucose: Normal, Aug 2019 ([facility] [place] Lipid panel: Normal, Sep 2015 ([facility] [place] Mammogram: No fam hx. Age 39. Pap smear: No hx of abnormal. Last done Sep 2018 (outside facility). Due 2020. Colonoscopy/Cologuard: Crohn's, see overview. HIV: negative, 2018. Bone Density: Age 64 or sooner if risk factors. Complaint Manager history: G0. Menarche 12. Cycles regular naturally with cramping. Has migraines with aura. Placed on progesterone only control and menses sporadic up until the last couple months when she has been having more frequent and heavier bleeding. Sexually active in monogamous relationship. 4. Polyp Gallbladder Followed by GI. Incidental finding on abdominal US 2018. 1 year surveillance US Aug 2020 showed small growth. Surveillance US scheduled for February 2021. The following portions of the patient's history were reviewed and updated as appropriate: allergies,current medications, family history, medical history, social history, surgical history and problem list. REVIEW OF SYSTEMS Genitourinary: Positive for pain with urination and menses change or abnormal. Negative for abnormalvaginal bleeding, incontinence, difficulty urinating, hematuria, urgency and frequent urination. The following systems were negative: Constitutional, Skin, Eyes, ENT, CV, Respiratory, GI, Hematologic, Musculoskeletal, Neuro, Psych OBJECTIVE PHYSICAL EXAM Physical Exam GENERAL APPEARANCE: Well developed, well-nourished and in no acute distress. HEAD: Normocephalic. EYES: Conjunctivae non-injected; sclerae anicteric. Vision grossly intact. ABDOMEN: Soft, nontender without masses or hepatosplenomegaly. PELVIC: Normally developed genitalia with no external lesions or eruptions. Vagina and cervix show no lesions, inflammation, discharge or tenderness. NEUROLOGIC: Alert and oriented. Cranial nerves grossly intact. PSYCHIATRIC: Grossly intact. Vitals: 02/01/21 0952 BP: 109/73 Comment: average BP Location: Left arm Patient Position: Sitting Cuff Size: Regular Pulse: 97 Temp: 36.7 ??C PainSc: 3 ASSESSMENT / PLAN #1 Symptom Urinary Urine dip not consistent with UTI. Will send off urine for additional testing as outlined below. If testing negative proceed with observation to see if these improve with time. May trial OTC AZO short-term to see if this provides additional relief. Follow-up if symptoms persist or worsen. - Bacterial Culture, Aerobic + Susc, Urine; Future; Expected date: 02/01/2021 - Test, Qualitative, Urine; Future; Expected date: 02/01/2021 - Test, Qualitative, Urine - Bacterial Culture, Aerobic + Susc, Urine #2 Pap Smear Examination - ThinPrep Screen HPV Reflex #3 Screening For Venereal Disease - Chlamydia / Gonorrhoeae Amplified RNA #4 Maintenance Health Adult Assessment & Plan: Will update pap smear [...] form of progesterone only contraceptive and she prefers to hold off for now and see what happens with menses. #5 Colitis Crohn's (HCC) Assessment & Plan: Stable. Followed by GI. #6 Nausea - nortriptyline (PAMELOR) 25 mg capsule; Take 1 capsule (25 mg total) by mouth at bedtime., StartingWed 02/01/2021, Normal #7 Polyp Gallbladder Assessment & Plan: Followed by GI. US scheduled for next month with labs. #8 Fatigue Assessment & Plan: Improved. Follow-up as needed. Other orders - norethindrone (Jemima) 0.35 mg tablet; Take 1 tablet (0.35 mg total) by mouth daily., Starting 02/01/2021, Normal - Primary Care nurse visit (clinic) - [facility] - Dipstick, POCT, Urine Signs and symptoms warranting further evaluation were discussed. All questions were answered to the best of my ability. Patient was in agreement with the plan. 5 min pre-working chart + 20 min FTF with the patient + 10 minutes reviewing data in chart and documenting = E4 (30-39 min) Bruna Umanzor, RJuliaN. - 02/01/2021 10:00 AM CDT CHIEF COMPLAINT / REASON FOR VISIT Laurel Mcdonald is a 25 y.o. female presenting today for evaluation of Urinary Tract Infection SUBJECTIVE HISTORY OF PRESENT ILLNESS Presenting today for follow up of UTI symptoms for which she was treated after an E-Visit on 01/13/21.She reports she took a 7 day course of Macrobid; took appropriately and completed the entire course.Unfortunately she continues to complain of mild dysuria and urgency. She notes that frequency entirely improved, however her urgency and dysuria symptoms continue to be bothersome. Additionally, she notes some dyspareunia which has been present for about the last 1-2 months, sometimes during and typically after intercourse. She reports that her and her partner, (1 partner in the last 6 months, monogamous) do have to discontinue intercourse at times due to her pain. She denies concern for STI today, reports they do not use condoms. She requests a test today given her recent issues with irregular menstrual bleeding. She agrees to chlamydia and gonorrhea today as well to be collected duringroutine pap smear. She notes that for the past 2 months, she has been having some irregular bleeding; had a period last on 01/16 about 4 days in length then 2 weeks later has spotting again. She takes her progesterone only pill continuously and has been for at least the past 5 years, denies prior issue with this. Denies any missed pills, reports taking the pills very consistently at the same time each day. Denies systemic symptoms including fever, night sweats, chills. Denies nausea and vomiting, abdominal symptoms (she does have Crohn's but doesn't note any drastic changes), flank pain, hematuria, vaginal symptoms including itch, lesion, change in discharge with the exception of the irregular bleeding. Diagnosis Overview 1. Colitis Crohn's ([facility]) Followed by GI. Most recent visit April 2020. Last colonoscopy 04/2020, normal. Enterography of 12/2018 was also normal. Meds: Stelara 90 mg every 8 weeks. Nortriptyline 25 mg daily HS for nausea. Mercaptopurine 50 mg daily to prevent rejection of Stelara. Diagnosed with Crohn's colitis in February 2017. She was initially treated with Remicade however she developed antibodies and had to be switched to Humira and Imuran. She could not tolerate Imuran due to side effects. ??She had a colonoscopy in August 08, 2018 to follow up response which showed mildly active chronic inflammation. Unfortunately, she developed antibodies to Humira and subsequently transitioned to Stelara 10/2018. 2. Maintenance Health Adult Immunizations: Up-to-date. Tobacco/Alcohol/Illicit drugs: Refer to social history. -Lung cancer screening: Lifetime non-smoker. Diet/Exercise: General diet. Active. BMI: Body mass index is 22.85 kg/m??. BP: BP 109/73 (BP Location: Left arm, Patient Position: Sitting, Cuff Size: Regular) Comment: average Glucose: Normal, Aug 2019 ([facility] [place] Lipid panel: Normal, Sep 2015 ([facility] [place] Mammogram: No fam hx. Age 39. Pap smear: No hx of abnormal. Last done Sep 2018 (outside facility). Due 2020. Colonoscopy/Cologuard: Crohn's, see overview. HIV: negative, 2018. Bone Density: Age 64 or sooner if risk factors. Complaint Manager history: G0. Menarche 12. Cycles regular naturally with cramping. Has migraines with aura. Placed on progesterone only control and menses sporadic up until the last couple months when she has been having more frequent and heavier bleeding. Sexually active in monogamous relationship. 3. Polyp Gallbladder Followed by GI. Incidental finding on abdominal US 2018. 1 year surveillance US Aug 2020 showed small growth. Surveillance US scheduled for February 2021. 4. Fatigue Reports longstanding struggle with fatigue in setting of Crohn's. Worsened Jul 2020. Reports this has since improved and no longer an ongoing concern. REVIEW OF SYSTEMS REVIEW OF SYSTEMS The following portions of the patient's history were reviewed and updated as appropriate: allergies,current medications, family history, medical history, social history, surgical history and problem list. MEDICATIONS Current Outpatient Medications Medication Sig Dispense Refill ??? albuterol inhaler Inhale 1-2 puffs every 4 (four) hours as needed for wheezing or shortness of breath. 1 Inhaler 1 ??? mercaptopurine (PURINETHOL) 50 mg tablet TAKE 1 TABLET BY MOUTH DAILY ON AN EMPTY STOMACH 180 tablet 0 ??? norethindrone (Jemima) 0.35 mg tablet Take 1 tablet (0.35 mg total) by mouth daily. 84 tablet 4 ??? nortriptyline (PAMELOR) 25 mg capsule Take 1 capsule (25 mg total) by mouth at bedtime. 90 capsule 1 ??? ondansetron ODT (ZOFRAN-ODT) 4 mg disintegrating tablet Take 1 tablet (4 mg total) by mouth every 8 (eight) hours as needed for nausea or vomiting. 30 tablet 0 ??? Stelara 90 mg/mL injection INJECT 90 MG (ONE SYRINGE) SUBCUTANEOUSLY EVERY 8 WEEKS, PLEASE MAKE AN APPOINTMENT TO CONTINUE MEDICATION. 2 mL 0 No current facility-administered medications for this visit. ALLERGIES Allergies Allergen Reactions ??? Codeine GI intolerance ??? Topiramate Other (see comments) PAST MEDICAL / SURGICAL HISTORY Past Medical History: Diagnosis Date ??? Arrhythmia palpitations ??? Asthma Mild Intermittent (HCC) 11/23/2012 Diagnosed 6th grade via testing. No hospitalizations. No oral prednisone bursts. Has been off medication for many years without symptoms. Currently asymptomatic. ??? Asthma NOS doesnt need inhaler often ??? Colitis Crohn's (HCC) 02/14/2017 Diagnosed with [...] and subsequently ??? Crohn's Disease (HCC) ??? Nausea And Vomiting ??? Personal History Unintended Awareness Under General Anesthesia ??? Polyp Colon ??? 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 Thyroid ultrasound demonstrated goiter and findings consistent withthe elevated TPO antibody/Amador's. Upon recheck labs normalized. Family history of both hyper and hypothyroidism in a paternal aunt and paternal grandmother respectively. Lab Results Component Value Date TSH 2.3 09/28/2019 [id number] 09/28/2019 ??? Tumor Breast Benign 04/23/2013 Past Surgical History: Procedure Laterality Date ??? BREAST SURGERY Right 10/2013 fibroadenomas removed ??? EXCISION OF EXOSTOSIS OF BONE N/A 02/04/2008 Excision or curettage of bone cyst or benign tumor, talus or calcaneus;.. ??? OTHER SURGICAL HISTORY 04/2016 Right bunionectomy ??? TONSILLECTOMY 1998 Adenoids removed in 1998 ??? TONSILLECTOMY AND ADENOIDECTOMY N/A 2002 Tonsillectomy and adenoidectomy; younger than age 12.. ??? TYMPANOTOMY N/A 02/04/1996 Myringotomy SOCIAL HISTORY Occupational History ??? Not on file FAMILY HISTORY Family History Problem Relation Age of Onset [...] annually ??? Other (Other) Mother Lupus ??? Breast cancer Neg Hx ??? Colon cancer Neg Hx ??? Ovarian cancer Neg Hx OBJECTIVE PHYSICAL EXAM Physical Exam BP 109/73 (BP Location: Left arm, Patient Position: Sitting, Cuff Size: Regular) Comment: average Pulse 97 Temp 36.7 ??C Wt 63.5 kg LMP 01/16/2021 (Exact Date) BMI 22.85 kg/m?? General: Patient appears to be in overall good health, in no acute distress, and well nourished. Skin: skin is warm and dry with good turgor. No rashes, lesions, erythema, or ecchymosis Heart: Heart rate is regular, sounds are S1 and S2. No thrills, murmurs or bruits. Lungs: Respirations are unlabored with no use of accessory muscles. All lung paredes are clear to auscultation bilaterally. No costovertebral angle tenderness. Abdomen: Abdomen is soft and nontender to palpation with no masses. Spleen, kidneys, and liver are nonpalpable. Genitourinary: External genitalia appears healthy. No rashes, lesions, erythema, or swelling. Vulva:no erythema, no lesions, normal hair distribution. Vagina: tineo are pink with rugae, normal physiologic discharge is visualized. Cervix is well, pink, non-inflamed with normal physiologic discharge, ectropian tissue visible. Neurologic: Patient is alert and oriented x 3 with normal attention, mentation, and speech exhibited. ASSESSMENT / PLAN #1 Symptom Urinary - Dip negative for UTI, sending for culture to be certain, will be in touch with these results. Suspect this is just some residual irritation. She can try pyridium for symptoms as well to see if this is helpful. - Bacterial Culture, Aerobic + Susc, Urine; Future; Expected date: 02/01/2021 - Test, Qualitative, Urine; Future; Expected date: 02/01/2021 - Test, Qualitative, Urine - Bacterial Culture, Aerobic + Susc, Urine #2 Pap Smear Examination - ThinPrep Screen HPV Reflex #3 Screening For Venereal Disease - Chlamydia / Gonorrhoeae Amplified RNA #4 Maintenance Health Adult Assessment & Plan: Will update pap smear [...] form of progesterone only contraceptive and she prefers to hold off for now and see what happens with menses. #5 Colitis Crohn's (HCC) Assessment & Plan: Stable. Followed by GI. #6 Nausea - nortriptyline (PAMELOR) 25 mg capsule; Take 1 capsule (25 mg total) by mouth at bedtime., StartingWed 02/01/2021, Normal #7 Polyp Gallbladder Assessment & Plan: Followed by GI. US scheduled for next month with labs. #8 Fatigue Assessment & Plan: Improved. Follow-up as needed. Other orders - norethindrone (Jemima) 0.35 mg tablet; Take 1 tablet (0.35 mg total) by mouth daily., Starting 02/01/2021, Normal - Primary Care nurse visit (clinic) - [facility] - Dipstick, POCT, Urine Patient Instructions Urine dip not consistent with UTI. Will send urine culture, test, and STI testing. Will bein touch when I have results to discuss next steps. Pap smear results in 1-3 weeks via portal. Keep me posted on bleeding pattern. If persistent then can consider alternative contraceptive vs. Transvaginal US. Bruna Umanzor R.N., BETZAIDA Student 02/01/2021, 11:05 AM CDT Associated attestation - Belkys Marshall APRN C.N.P., M.S. - 02/01/2021 11:25 AM CDT I evaluated this patient with Bruna Umanzor NP student. I was present for or re-performed the History of Present Illness, Physical exam, and participated in the Medical Decision Making. I reviewedher note and agree with the Findings, Assessment, and Plan. documented in this encounter Miscellaneous Notes Assessment & Plan Note - Belkys Marshall APRN, C.N.P., M.S. - 02/01/2021 10:37 AM CDTAssociated Problem(s): Maintenance Health Adult Will update pap smear today. With regard to abnormal vaginal bleeding suspect this is secondary to mini-pill in absence of any other symptoms. Will obtain test and STI testing as a precaution. Discussed option of transvaginal US to rule-out other etiologies if desired. She is comfortable deferring for now. Discussed option to switch to other form of progesterone only contraceptive and she prefers to hold off for now and see what happens with menses. Assessment & Plan Note - Belkys Marshall APRN, C.N.P., M.S. - 02/01/2021 10:36 AM CDTAssociated Problem(s): Fatigue Improved. Follow-up as needed. Assessment & Plan Note - Belkys Marshall APRN, C.NVira., M.S. - 02/01/2021 10:36 AM CDTAssociated Problem(s): Colitis Crohn's (HCC) Stable. Followed by GI. Assessment & Plan Note - Belkys Marshall APRN, C.NTawanna, M.S. - 02/01/2021 10:36 AM CDTAssociated Problem(s): Polyp Gallbladder Followed by GI. US scheduled for next month with labs. documented in this encounter Plan of Treatment Scheduled Referrals Name Type Priority Associated Diagnoses Order S kareem Primary Care nurse Outpatient Referral Routine Or dered: visit (clinic) - 02/01/2021 [facility] documented as of this encounter Procedures Procedure Name Priority Date/Time Associated Diagnosis Comme nts TEST, U Routine 02/01/2021 2:54 PM Symptom Urinary R esults for this CDT procedure are i n the results section. PHYSICIAN INTERP Routine 02/01/2021 10:25 Results for this SCREEN AM CDT procedure are i n the results section. THINPREP SCREEN HPV Routine 02/01/2021 10:25 Pap Smear Resu lts for this REFLEX AM CDT Examination procedure are i n the results section. HPV WITH GENOTYPING, Routine 02/01/2021 10:25 Res ults for this PCR, THINPREP AM CDT procedure are in the results section. BACTERIAL CULTURE, Routine 02/01/2021 10:24 Symptom Urinary Re sults for this AEROBIC + SUSC, AM CDT procedure ar e in URINE the results section. CHLAMYDIA/GONORRHOEA Routine 02/01/2021 10:24 Screening For Re sults for this E AMPLIFIED RNA AM CDT Venereal Disease procedur e are in the results section. TX URINALYSIS AUTO Routine 02/01/2021 10:20 Resul ts for this WO MICRO AM CDT procedure are i n the results section. documented in this encounter Results Test, Qualitative, Urine (02/01/2021 2:54 PM CDT) P athologist Signature Negative 02/01/2021 JAIMIE Test, U 3:14 PM CDT Specimen Anatomical Collection Method Collection Time Receive d Time (Source) Location / / Volume Laterality Urine (Urine, 02/01/2021 2:54 PM 02/02/20 2:54 Voided) CDT PM CDT Celina Sequeira APRN.N.P., M.S. LAB URINE ORDERABLES Performing Organization Address City/State/ZIP Code Phon e Number [facility] - [address] [place], [place] [address] [address] [place] [address] [facility] [address] Physician Interp Screen (02/01/2021 10:25 AM CDT) Analysis Performed At Patho logist Time Signature PHYSICIAN Performed DEFAULT 02/07/2021 DTL INTERP SCREEN 1:04 PM CDT Specimen Anatomical Collection Method Collection Time Receive d Time (Source) Location / / Volume Laterality Varies 02/01/2021 10:25 02/01/2021 2:45 AM CDT PM CDT Belkys Marshall APRN, C.N.P., M.S. LAB SURG PATH ORDERA BLES Performing Organization Address City/[facility] Phon e Number [facility] - [address] (ABNORMAL) HPV with Genotyping, PCR, ThinPrep (02/01/2021 10:25 AM CDT) [facility] gist Method Time [facility] Specimen CERVIX/ENDOC 02/08/2021 DTL Source ERVIX 9:07 PM CDT HPV High Risk Negative Negative 02/08/2021 DTL type 16, PCR 9:07 PM CDT HPV High Risk Negative Negative 02/08/2021 DTL type 18, PCR 9:07 PM CDT HPV other Positive (A) Negative 02/08/2021 DTL High Risk 9:07 PM CDT types, PCR Comment: Positive for one or more of the followin g Other High Risk HPV types: 31, 33, 35, 3 9, 45, 51, 52, 56, 58, 59, 66, and 68 This test was ordered in the context of a [facility] REPRODUCTION ARTIST Cytology case; this result should be int erpreted within the context of the REPRODUCTION ARTIST cytology report. Specimen Anatomical Collection Method Collection Time Receive d Time (Source) Location / / Volume Laterality Varies 02/01/2021 10:25 02/01/2021 2:45 AM CDT PM CDT Belkys Marshall APRN, C.N.P., M.S. LAB MICROBIOLOGY - G ENERAL ORDERABLES Performing Organization Address City/[facility]/ZIP Code Phon e Number [facility] - [address] (ABNORMAL) ThinPrep Screen HPV Reflex (02/01/2021 10:25 AM CDT) Component Value Ref Test Analysis Performed Patholog t Range Method Time At [facility] (A) 02/09/2021 DTL 11:23 AM CDT Report Dru Patel M.D., Ph.D. [phone] 02/10/20 DTL electronically I verify that I have examined all relevant slides/ma terials 11:23 AM signed by for the specimen(s) and rendered or confirmed the diagnosis. CDT (A) Gross Description Received specimen 02/09/2021 DTL in a ThinPrep 11:23 AM vial. (A) CDT Pap Test Source Cervical/Endocervi 02/09/2021 DTL pierre (A) 11:23 AM CDT Clinical History none (A) 02/09/2021 DTL 11:23 AM CDT Menstrual 01/16/2021 (A) 02/09/2021 DTL Status(LMP, PM, 11:23 AM ) CDT Hormone mini pill (A) 02/09/2021 DTL Therapy/Contracep 11:23 AM tives CDT Interpretation Cervical/Endocervical ??(ThinPrep): 02/09/2021 DTL Satisfactory for Evaluation 11:23 AM Epithelial Cell Abnormality CDT Atypical squamous cells, cannot exclude high grade squamous intraepithelial lesion ??High Risk HPV testing results are POSITIVE. See specific genotype results below. HPV with Genotyping, PCR, ThinPrep: ??HPV High Risk Type 16, PCR: ??NEGATIVE ??HPV High Risk Type 18, PCR: ??NEGATIVE ??HPV other High Risk types, PCR: ??POSITIVE Other High Risk HPV types include: 31, 33, 35, 39, 45, 51, 52, 56, 58, 59, 66, and 68. (A) Specimen Anatomical Collection Method Collection Time Receive d Time (Source) Location / / Volume Laterality Varies 02/01/2021 10:25 02/01/2021 2:45 (Cervix/Endocerv AM CDT PM CDT ix) Narrative This result has an attachment that is no t available. Layne Sequeira APRNN.P., M.S. LAB PAP PATHDX ORDER ZURI Performing Organization Address City/State/ZIP Code Phon e Number [facility] - [address] [place], [place] [address] [place] [address] Laboratories-[facility] [address] Chlamydia / Gonorrhoeae Amplified RNA (02/01/2021 10:24 AM CDT) [facility] Method Time Signature Source Swab, 02/02/2021 DTL Cervix/Endoc 5:41 AM CDT ervix Chlamydia Negative Negative 02/02/2021 DTL trachomatis 5:41 AM CDT amplified RNA Source Swab, 02/02/2021 DTL Cervix/Endoc 5:41 AM CDT ervix Neisseria Negative Negative 02/02/2021 DTL gonorrhoeae 5:41 AM CDT amplified RNA Specimen Anatomical Collection Method Collection Time Receive d Time (Source) Location / / Volume Laterality Varies 02/01/2021 10:24 02/01/2021 3:07 (Cervix/Endocerv AM CDT PM CDT ix) Belkys Marshall APRN, C.N.P., M.S. LAB MICROBIOLOGY - G ENERAL ORDERABLES Performing Organization Address [facility] Phon e Number [facility] - [address] Bacterial Culture, Aerobic + Susc, Urine (02/01/2021 10:24 AM CDT) Component Value Ref Test Analysis Performed At [facility] Range Method Time Signature Urine Mixed Venessa, 02/02/2021 DTL Culture susceptibilities 12:32 PM not performed per CDT laboratory criteria. Specimen Anatomical Collection Method Collection Time Receive d Time (Source) Location / / Volume Laterality Urine (Urine, 02/01/2021 10:24 02/01/2021 3:43 Midstream) AM CDT PM CDT Comment: Specimen Source Site: Urine Belkys Marshall APRN, C.N.P., M.S. LAB MICROBIOLOGY - G ENERAL ORDERABLES Performing Organization Address [facility] Phon e Number [address] (ABNORMAL) Dipstick, POCT, Urine (02/01/2021 10:20 AM CDT) [facility] Method Time Signature Glucose, Negative Negative 02/01/2021 PCNE POCT, U mg/dL 10:22 AM CDT Ketone, POCT, Negative Negative 02/01/2021 PCNE U mg/dL 10:22 AM CDT Specific 1.020 1.005 - 02/01/2021 PCNE [place], 1.030 10:22 AM CDT POCT, U Blood, POCT, Trace (A) Negative 02/01/2021 PCNE U 10:22 AM CDT pH, POCT, 6.0 5.0 - 8.0 02/01/2021 PCNE Urine 10:22 AM CDT Protein, Negative Negative 02/01/2021 PCNE POCT, U mg/dL 10:22 AM CDT Nitrites, Negative Negative 02/01/2021 PCNE POCT, U 10:22 AM CDT Leukocytes, Negative Negative 02/01/2021 PCNE POCT, U 10:22 AM CDT Specimen Anatomical Collection Method Collection Time Receive d Time (Source) Location / / Volume Laterality Urine 02/01/2021 10:20 02/01/2021 AM CDT 10:23 AM CDT Unknown Provider LAB POCT ORDERABLES - DEVICE Performing Organization Address City/State/ZIP Code Phon e Number [facility] [address] [place] [address] MARGY documented in this encounter Visit Diagnoses Diagnosis Symptom Urinary - Primary Pap Smear Examination Screening For Venereal Disease [facility] Adult Colitis Crohn's (HCC) Nausea Polyp Gallbladder Fatigue documented in this encounter Care Teams Trading Specialist Relationship Specialty Start Date End Date Belkys Marshall, KARL, C.N.P., M.S. PCP - General Family Medicine 11/16/[address] [place] [address] documented as of this encounter
--- OUTSIDE RECORDS SUMMARY | 2022-08-31 12:36 | XMS_ITS | Encounter Summary ---
:1995 Author Organization [facility] Address [address] [place] [address] Care Team Providers Name Role Phone Belkys Marshall APRN, C.N.P., M.S. 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 [address] [place] [phone] Referral ID Status Reason Start Date Expiration Date Visits Requ ested Visits Authorized [id number] Closed 02/27/2021 02/27/2022 1 1 Reason for Visit Outpatient (Routine) - Closed Specialty Diagnoses / Procedures Referred By Contact Refer red To Contact Diagnoses Abnormal Pap Smear Personal History Belkys Marshall APRN, [facility] Procedures ICS FIRST BEATER Colposcopy procedure C.N.P., M.S. 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, [address] [place], [place] 200 [facility] [address] [place], [place] [phone] (Work) [phone] Social History Tobacco Use Types Packs/Day Years [...] or relatives? How often do you attend yarsani or 1 to 4 times per year 11/11 druze services? Do you belong to any clubs or Yes 11/23/2021 organizations such as yarsani groups, unions, fraternal or athletic groups, or [...] documented as of this encounter Progress Notes Chantell Jeong APRN, C.N.P., M.S.N. - 02/27/2021 9:15 AM CDT SUBJECTIVE CHIEF COMPLAINT/REASON FOR VISIT Colposcopy HISTORY OF PRESENT ILLNESS Laurel Mcdonald is a pleasant 26 y.o. G0 who presents today to the Division of Gynecology for acolposcopy. The patient's past medical history is significant for Crohn's disease. She is chronically immunosuppressed on Stelara. This is her first abnormal cervical cytology screening Gynecology cytology history: 10/10/2018: NILM 1. 02/01/2021 PAP: ASC-H, HPV positive other high risk types Menses: LMP: 02/26/21 Frequency:Irregular Duration:5-7 days Flow: moderate/light Contraception: Progesterone only pill Sexually active: yes, with 1 male partner STI concerns or known exposures: Vaginal symptoms: None Vulvar symptoms: None Smoking status: Nonsmoker WAGNER exposure: No Gardasil vaccine: Yes PHYSICAL EXAM General: Healthy-appearing female in no acute distress Psych: Appropriate affect. Answers questions appropriately. Pelvic: The patient was placed in lithotomy position. A medium speculum was inserted into the vagina. The cervix was easily visualized, midline and pink. The SCJ was completely visualized. A green filter was used. No abnormal vessels were noted. A Pap smear was not obtained. Acetic acid 5% was placed liberally on the cervix. A translucent aceto-white lesion with geographical borders was present circumferentially around the cervical os. Denser aceto-white staining with coarse mosaicism was visualized in the 11 o'clock position. No punctation. This was confirmed with negative Lugol staining in the previously mentioned areas. Posterior biopsies were obtained from the 4, 6, and 8 o'clock position. Anterior biopsies were obtained at 11 and 1 o'clock position. A cervical curettage was performed. Acetic acid 5% was then placed liberally on the vaginal tineo. Scattered translucent aceto-white lesions with geographical borders were present on the right vaginal sidewall. No punctation or mosaicism. This was confirmed with negative Lugol staining in the previously mentioned area. A biopsy was obtained from the right sidewall. A thorough examination of the external genitalia was then completed. No lesions or areas of excoriation were noted. The urethral meatus is free of discharge. Bartholin gland is not palpable. Acetic acid 5% was then liberally applied to the vulva, introitus, perineum, and perianal areas. Aceto-white lesions were not noted. The patient tolerated the procedure well without vasovagal reaction or difficulty. Photography was obtained and is available in [employer]. IMPRESSION/PLAN/REPORT #1 GERRI I/II I have advised the patient nothing inside the vagina for the next 5 days or until all discharge stops. She is to monitor for any symptoms of infection. If they occur, she is to contact clinic immediately. The patient was given brochure: How To Care For Yourself After Cervical or Vaginal Biopsy. If the results of the cervical/vaginal biopsies come back as a low-grade squamous intraepithelial lesion orless, the plan of care will be to repeat Pap smear with HPV Co testing in 12 months. If the results come back as a high-grade squamous intraepithelial lesion, the patient will be referred for further evaluation and treatment. She is agreeable to the plan of care and denies further questions. Chantell Jeong APRN, C.N.PJulia, M.S.N. documented in this encounter Procedure Notes Chantell Jeong APRN, C.N.PJulia, M.S.N. 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 Authorized by: Chantell Jeong APRN, C.N.P., M.S.N. Care team members present 1. Elizabet Peters PROCEDURE DETAILS Procedure: colposcopy with cervical biopsy and ECC and colposcopy of vagina with biopsy Acetic Acid applied: yes Acetic Acid strength: 5% Iodine (Lugol's) solution applied: yes Under colposcopic examination the transition zone seen in entirety: yes Endocervical curretage specimen obtained: yes Location of biopsies: cervix and vagina Number of cervical biopsies: 5 Number of vaginal biopsies: 1 Hemostatis with: Silver nitrate, direct pressure and Monsel's solution Findings: Acetowhite and mosaicism Transformation zone visualized: Completely Patient's tolerance of procedure: Patient tolerated the procedure well with no immediate complications CONSENT Consent obtained: verbal Consent given by: patient The benefits, risks and alternatives to the procedure and the potential need for sedation or anesthesia as well as the names, roles, and responsibilities of healthcare team members performing significant interventional tasks were discussed with the patient and/or decision maker. UNIVERSAL PROTOCOL All relevant documentation and testing were reviewed and available. All required blood products, implants, devices and or special equipment were made available as applicable. Pre-procedure verificationwas conducted and the correct site was marked if required. A fire risk assessment was done as applicable. The procedural time-out was conducted prior to performing the procedure and confirmed in a procedural pause. PRE-PROCEDURE DETAILS Assessment - reasonably exclude based on: PREG criteria Indications: ASC-H Appropriate hand hygiene, gown, cap, mask, protective eyewear, sterile gloves, skin preparation, sterile drape, and strict aseptic technique were utilized as applicable for the procedure.: yes SEDATION / ANESTHESIA Anesthesia method: none POST-PROCEDURE DETAILS Procedure completed successfully. yes Complications: no apparent complications FIRST BEATER documented in this encounter Plan of Treatment Not on filedocumented as of this encounter Procedures Procedure Name Priority Date/Time Associated Diagnosis Comme [facility] SURGICAL PATHOLOGY Routine 02/27/2021 9:49 Abnormal Pap Smear Results for this AM CDT Personal History procedure are in Atypical Squamous Cell the r esults Uncertain Significance secti on. With Possible High Grade Squamous Intraepitheliel Lesion SC COLPOSCOPY Routine 02/27/2021 9:15 Atypical Squamous Cell R esults for this ENTIRE VAG CX W BX AM CDT Uncertain Significance procedure are in With Possible High the resul ts Grade Squamous section. Intraepitheliel Lesion SC COLPOSCOPY Routine 02/27/2021 9:15 Atypical Squamous Cell R esults for this CERVIX W BX & ECC AM CDT Uncertain Significance procedure are in With Possible High the resul ts Grade Squamous section. Intraepitheliel Lesion documented in this encounter Results Surgical Pathology (02/27/2021 9:49 AM CDT) Component Value Ref Test Analysis Performed Pathologis t Range Method Time At Signature 02/28/2021 DTL 2:20 PM CDT Participated in [facility] 02/28/2021 DTL the Kasey Vargas, 2:20 PM Interpretation Ph.D.-Pathology CDT Resident Report Niraj Scott M.D. [id number] 02/28/2021 D TL electronically 2:20 PM signed by CDT I verify that I have examined all relevant slides/materials for the specimen(s) and rendered or confirmed the diagnosis. Gross Description A: ?? Received in formalin labeled with the patie nt's name, 02/28/2021 DTL medical record number, and cervix, posterior four, six, 2:20 PM eight o'clock are five pale [id number] irregular soft CDT tissues, admixed with multiple minute pieces of probable debris, the tissues ranging from 0.3-0.7 cm in greatest dimension. Specimens are submitted en toto in cassette A1. Grossed by ARG. B: ?? Received in formalin labeled with the patient's name, medical record number, and cervix, anterior eleven, one o'clock are four pale haynes-red irregular soft tissues, ranging from 0.4-0.5 cm in greatest dimension. Specimens are submitted en toto in cassette B1. ??Grossed by ARG. C: ?? Received in formalin labeled with the patient's name, medical record number, and vagina, right sidewall is a 0.9 x 0.3 x 0.1 cm pale haynes vaginal shave biopsy. ??There is a 0.4 x 0.3 cm pale haynes-pink, lightly pigmented lesion with irregular borders eccentrically located on the vaginal surface. The specimen is submitted en toto in cassette C1. Grossed by ARG. D: ?? Received in formalin labeled with the patient's name, medical record number, and endocervical curettings are multiple pale haynes-haynes-red irregular soft tissues, admixed with a moderate amount of mucus, 3.1 x 1.3 x 0.1 cm in aggregate. Due to the scant nature of the tissue fragments, some or all may not survive processing. Specimens are submitted en toto in cassette D1. ??Grossed by ARG. Interpretation FINAL DIAGNOSIS 02/28/2021 DTL 2:20 PM A. ??Cervix; posterior; 4, 6, & 8 o'clock; biopsy: CDT Low-grade squamous intraepithelial lesion (LSIL/CIN1). B. Cervix, anterior, 11 & 1 o'clock, biopsy: ??Low-grade squamous intraepithelial lesion (LSIL/CIN1). C. Vagina, right, sidewall, biopsy: ??Low-grade squamous intraepithelial lesion (Low-grade squamous intraepithelial lesion (LSIL/VaIN1). D. Endocervix, curettings: Fragments of endocervical glands. Specimen Anatomical Collection Method Collection Time Receive d Time (Source) Location / / Volume Laterality Varies 02/27/2021 9:49 AM CDT 12:38 PM CDT Narrative This result has an attachment that is no t available. Chantell Jeong APRN C.N.P., M.S.N. LAB SURG PATH OR DERABLES Performing Organization Address City/State/[facility] Code Phon e Number [facility] [address] [place], [place] [address] [facility] [place] [address] [facility] [address] [place] COLPOSCOPY CERVIX W BX & ECC, SC COLPOSCOPY ENTIRE VAG CX W BX (02/27/2021 9:15 AM CDT) Narrative [facility] - 02/27/2021 9:15 AM CDT Chantell Jeong APRN C.N.P., M.S.N. ? 02/27/2021 ??9:50 AM Colposcopy Date/Time: 02/27/2021 9:15 AM Performed by: Chantell Jeong APRN, C .N.P., M.S.N. Authorized by: Chantell Jeong APRN C.N.PJulia, M.S.N. Care team members present 1. Elizabet Peters PROCEDURE DETAILS ??Procedure: colposcopy with cervical b iopsy and ECC and colposcopy of vagina with biopsy ?Acetic Acid applied: yes ?Acetic Acid strength: ??5% ??Iodine (Lugol's) solution applied: ye s ?Under colposcopic examination the tra nsition zone seen in entirety: yes ?Endocervical curretage specimen obtai maria c: yes ?Location of biopsies: cervix and vagi na ?Number of cervical biopsies: ??5 ??Number of vaginal biopsies: ??1 ??Hemostatis with: ??Silver nitrate, di rect pressure and Monsel's solution ??Findings: ??Acetowhite and mosaicism ??Transformation zone visualized: ??Com pletely ??Patient's tolerance of procedure: ??P atient tolerated the procedure well with no immediate complications CONSENT Consent obtained: verbal Consent given by: patient The benefits, risks and alternatives to the procedure and the potential need for sedation or anesthesia as well as the names, roles, and responsibilities of healthcare team memb ers performing significant interventional tasks were discussed with the patient and/or decision maker. UNIVERSAL PROTOCOL All relevant documentation and testing [...] confirmed in a procedu ral pause. PRE-PROCEDURE DETAILS ?? Assessment - reas onably exclude based on: ??PREG criteria ??Indications: ??ASC-H ??Appropriate hand hygiene, gown, cap, mask, protective eyewear, sterile gloves, skin preparation, sterile drape, and strict aseptic technique were utilized as applicable for the procedure .: yes ?? SEDATION / ANESTHESIA Anesthesia method: none POST-PROCEDURE DETAILS ?? Procedure completed successfully. yes ?? Complications: no apparent complications Adrianna Canales APRN.Mame., M.S.N. PROCEDURE/MINOR SURGICAL ORDERABLES Performing Organization Address City/State/ZIP Code Phon e Number [facility] NA documented in this encounter Visit Diagnoses Diagnosis Atypical Squamous Cell Uncertain Signifi cance With Possible High Grade Squamous Intraepithelial Lesion - Primary Abnormal Pap Smear Personal History documented in this encounter Care Teams Strip Mill Operator Relationship Specialty Start Date End Date Belkys Marshall APRN, C.N.P., M.S. PCP - General Family Medicine 11/16/19 [address] [place] [address] documented as of this encounter
--- OUTSIDE RECORDS SUMMARY | 2022-08-31 12:36 | XMS_ITS | Encounter Summary ---
:1995 Author Organization [facility] Address [address] [place] [address] Care Team Providers Name Role Phone Belkys Marshall APRN, C.N.P., M.S. Primary Care Provider [phone]- [phone] Reason for Visit Reason Comments Urinary Problem Triage [facility] Nurse [facility] Encounter Details Date Type Department Care Team Description 01/31/2021 Nurse Triage Department of [facility], Jose Guadalupe Aquino Problem; Medicine, [facility] R.NJulia Triage; [facility] Nurse [place], in [phone] [place], [place] (Work) [address] [place] [address] Social History Tobacco Use Types [...] 1 to 4 times per year 11/11 gnosticist services? Do you belong to any clubs [...] this encounter Miscellaneous Notes Telephone Encounter - Genie Donohue R.N. - 01/31/2021 2:13 PM CDT COVID-19 Nurse Line Screening ASSESSMENT COVID 19 Screening Have you had close contact with a person who has a LABORATORY CONFIRMED case of COVID-19 in the past14 days?: No - Continue screening. PLAN Endpoint recommendation: Screening negative, testing not indicated at this time Care Points: -Wash hands frequently with soap and water for at least 20 seconds -If soap and water are not available, use a hand principal archaeologist -Avoid touching your eyes, nose and mouth. -Clean and disinfect high-touch surfaces routinely. -Wear a mask over your nose and mouth. A cloth face cover is not a substitute for social distancing -Continue to keep about 6 feet between yourself and others. -Avoid public areas and public transportation. -Find new ways to connect with family and friends, get support and share feelings. -Seek emergent care if any of the [...] care: Yes The following references were used: [facility] novel coronavirus (COVID- 19) resources CDC web site https://www.cdc.gov/coronavirus/2019-ncov/summary.html Nursing judgement Telephone Encounter - Genie Donohue R.N. - 01/31/2021 2:08 PM CDT Chief Complaint / Reason for Call Patient is a 25 y.o. female calling regarding Urinary Problem, Triage, and COVID Nurse Line. Assessment Concern: On January 21, patient completed a course of antibiotic for treatment of urinary tract infection (Nitrofurantoin 100 mg twice daily x 7 days). She said her UTI symptoms improved but did not resolve. She calls today with cloudy urine and pain with urination. She requests an appointment in clinic. Present for: 2 weeks. Home cares tried: Fluids, antibiotic. Calling to request: Appointment. The recommended disposition is See a health care provider within 24 hours (overriding See PCP Within2 Weeks). Reason for Disposition ??? All other urine symptoms Protocols used: URINARY [id number] Care Advice Patient/Caregiver understands and will follow care advice?: Yes, able to teach back CALL BACK IF: * Fever occurs * Unable to urinate and bladder feels full * You become worse. CARE ADVICE given per Urinary Symptoms (Adult) guideline. documented in this encounter Plan of Treatment Not on filedocumented as of this encounter Visit Diagnoses Not on filedocumented in this encounter Care Teams Clinical Associate Relationship Specialty Start Date End Date Belkys Marshall APRN, C.N.P., M.S. PCP - General Family Medicine 11/16/19 [address] [place] [address] documented as of this encounter
--- OUTSIDE RECORDS SUMMARY | 2022-08-31 12:36 | XMS_ITS | Encounter Summary ---
:1995 Author Organization [facility] Address [address] [place] [address] Care Team Providers Name Role Phone Belkys Marshall APRN C.NJuliaPJulia, M.S. Primary Care Provider [phone]- [phone] Encounter Details Date Type Department Care Team Description 01/05/2021 Orders Only Pharmacy Prior Auth RO Belkys Marshall APRN, C.N.P., M.S. [address] [place] [id number] (Wo rk) Social History Tobacco Use Types [...] 1 to 4 times per year 11/11 hinduism services? Do you belong to any clubs [...] on filedocumented in this encounter Care Teams Mill Stenciler Relationship Specialty Start Date End Date Belkys Marshall, KARL, C.N.P., M.S. PCP - General Family Medicine 11/16/19 [address] [place] [address] documented as of this encounter
--- OUTSIDE RECORDS SUMMARY | 2022-08-31 12:36 | XMS_ITS | Encounter Summary ---
:1995 Author Organization [facility] Address [address] [place] [address] Care Team Providers Name Role Phone Belkys Marshall APRN, C.N.P., M.S. Primary Care Provider +1- [phone] Reason for Visit Reason Onset Date Comments Testing For Upper Respiratory Virus Symptoms 02/17/2021 Encounter Details Date Type Department Care Team Description 02/17/2021 External Outreach Department of Stiven Abad Contact With And Medicine, [facility] Marilou Otero (Suspected) Exposure Building, in [address] [address] ([place], [place] Dx) [address] [facility] [address] [place], [place] [phone] [address] (Work) [phone] Social History Tobacco Use Types Packs/Day Years [...] 11/23/2021 organizations such as orthodox groups, unions, fraZero9 or athletic groups, or school groups? How [...] documented as of this encounter Progress Notes Mike Cook RJuliaN. - 02/17/2021 11:33 AM CDT Encounter created for symptomatic infectious disease screening with possible COVID, Influenza, RSV, and/or Group A Strep testing. documented in this encounter Plan of Treatment Not on filedocumented as of this encounter Procedures Procedure Name Priority Date/Time Associated Diagnosis Comme nts SARS CORONAVIRUS-2 Routine 02/18/2021 10:04 AM Contact With An d Results for this RNA, V CDT (Suspected) Exposure procedu re are in To COVID-19 the results section. documented in this encounter Results SARS Coronavirus-2 RNA, V Symptomatic (02/18/2021 10:04 AM CDT) [facility] Method Time Signature SARS-CoV-2 Swab, 02/19/2021 MKTO Specimen Nasopharynx 4:52 PM CDT Source SARS CoV-2 Undetected Undetected 02/19/2021 MKTO RNA, TMA 4:52 PM CDT Comment: SARS-CoV-2 RNA absent. This result does not rule out COVID-19 in the patient, as the sensitivity of the test depends o n the timing of the specimen collection and the quality of the specim en. Result should be correlated with patient's history and clinical presentat ion. ----ADDITIONAL INFORMATION---- This molecular amplification test was pe rformed using the Aptima SARS-CoV-2 assay ([employer] on the [employer] tem under emergency use authorization (EUA) by the U.S. Food and Drug Administ ration. Fact sheets for this EUA assay can be fo und at the following links: For Healthcare Providers: https://www.[employer] a.gov/media/986197/download For Patients: https://www.fda.gov/media/ 428094/download Specimen Anatomical Collection Method Collection Time Receive d Time (Source) Location / / Volume Laterality Varies 02/18/2021 10:04 02/19/2021 7:52 (Nasopharynx) AM CDT AM CDT Stiven Orourke D.O. LAB MICROBIOLOGY - GENERAL O RDERABLES Performing Organization Address City/State/ZIP Code Phon e Number [facility]- [address] [place] [id number] [place] [address] [address] documented in this encounter Visit Diagnoses Diagnosis Contact With And (Suspected) Exposure To COVID-19 - Primary documented in this encounter Additional Health Concerns Infection Onset Date Last Indicated Resolved Time COVID19 Pending 02/17/2021 02/18/2021 02/19/2021 4:53 PM CDT documented as of this encounter Care Teams Greensman Relationship Specialty Start Date End Date Belkys Marshall APRN, C.N.P., M.S. PCP - General Family Medicine 11/16/[address] [place] [address] documented as of this encounter
--- OUTSIDE RECORDS SUMMARY | 2022-08-31 12:36 | XMS_ITS | Encounter Summary ---
:1995 Author Organization [facility] Address [address] [place] [address] Care Team Providers Name Role Phone Belkys Marshall APRN C.N.Mame., M.S. Primary Care Provider +1- [phone] Encounter Details Date Type Department Care Team Description 02/23/2021 Admin Visit Department of Family Medicine, [address] [address] Social History Tobacco Use Types Packs/Day Years [...] or relatives? How often do you attend christianity or 1 to 4 times per year 11/11 samaritan services? Do you belong to any clubs or Yes 11/23/2021 organizations such as christianity groups, unions, fraternal or athletic groups, or [...] place to sleep or slept in a mcc (including now)? Education Answer Date Recorded What [...] documented as of this encounter Care Teams District Administrative Assistant Relationship Specialty Start Date End Date Belkys Marshall, KARL, C.N.P., M.S. PCP - General Family Medicine 11/16/19 [address] [place] [address] documented as of this encounter
--- OUTSIDE RECORDS SUMMARY | 2022-08-31 12:36 | XMS_ITS | Encounter Summary ---
:[address] [facility] Address [address] [place] [address] Care Team Providers Name Role Phone Belkys Marshall APRN, C.N.P., M.S. Primary Care Provider +1- [phone] Encounter Details Date Type Department Care Team Description 01/13/20[address] E-[address] [facility] Roxanne Alvarado RE : Bladder Infection Care at the [place] KARL Mitchell C.NTawanna (female only, age 12-75 Building on [address] years) Floor [place], [place] [address] [facility] [address] [place], [place] [phone] (Wo rk) [address] [phone] Social History Tobacco Use Types Packs/Day Years [...] as of this encounter Visit Diagnoses Diagnosis Symptom Urinary - Primary Discharge Vaginal documented in this encounter Care Teams Returning Officer Relationship Specialty Start Date End Date Belkys Marshall, KARL, C.N.P., M.S. PCP - General Family Medicine 11/16/19 [address] [place] [address] documented as of this encounter
--- OUTSIDE RECORDS SUMMARY | 2022-08-31 12:36 | XMS_ITS | Encounter Summary ---
:1995 Author Organization [facility] Address [address] [place] [address] Care Team Providers Name Role Phone Belkys Marshall APRN C.N.P., M.S. Primary Care Provider +1- [phone] Encounter Details Date Type Department Care Team Description 02/27/2021 Ancillary Procedure Department of Gynecology Social History Tobacco Use Types Packs/Day Years [...] 1 to 4 times per year 11/11 anglican services? Do you belong to any clubs [...] Procedure Name Priority Date/Time Associated Comments Diagnosis GYNECOLOGY IMAGE Routine 02/27/2021 7:40 AM Resul ts for this EXAM CDT procedure are i n the results section. documented in this encounter Results COLPO-Gynecology Image Exam (02/27/2021 7:40 AM CDT) Specimen (Source) Anatomical Collection Method Collection Time Re ceived Time Location / / Volume Laterality 02/27/2021 7:40 AM CDT Narrative [facility] - 02/27/2021 9:50 AM CDT This order has been created [...] on filedocumented in this encounter Care Teams Flag Maker Relationship Specialty Start Date End Date Belkys Marshall APRN, C.N.P., M.S. PCP - General Family Medicine 11/16/[address] [place] [address] documented as of this encounter
--- OUTSIDE RECORDS SUMMARY | 2022-08-31 12:36 | XMS_ITS | Encounter Summary ---
:1995 Author Organization [facility] Address [address] [place] [address] Care Team Providers Name Role Phone Belkys Marshall APRN, C.N.Mame., M.S. Primary Care Provider +1- [phone] Encounter Details Date Type Department Care Team Description 02/18/2021 Admin Visit Department of Family Medicine, [address] [address] Formerly named [facility] [phone] Social History Tobacco Use Types Packs/Day Years [...] or relatives? How often do you attend orthodoxy or 1 to 4 times per year 11/11 samaritan services? Do you belong to any clubs or Yes 11/23/2021 organizations such as orthodoxy groups, unions, fraternal or athletic groups, or [...] documented as of this encounter Care Teams Church Supervisor Relationship Specialty Start Date End Date Belkys Marshall, KARL, C.N.P., M.S. PCP - General Family Medicine 11/16/19 [address] [place] [address] documented as of this encounter
--- OUTSIDE RECORDS SUMMARY | 2022-08-31 12:36 | XMS_ITS | Encounter Summary ---
:1995 Author Organization [facility] Address [address] [place] [address] Care Team Providers Name Role Phone Belkys Marshall APRN, C.NVira., M.S. Primary Care Provider +1- [phone] Reason for Referral Outpatient (Routine) - Closed Specialty Diagnoses / Procedures Referred By Contact Refer red To Contact [facility] Medicine Diagnoses Colitis Crohn's (HCC) [facility] Jacky MartinezB.S. [address] [place] [phone] Referral ID Status Reason Start Date Expiration Date Visits Requ ested Visits Authorized [id number] Closed 03/22/2021 03/22/2022 1 1 Scheduling Instructions With Pharm. RadhaD. ([facility] EMELY) Reason for Visit Reason Comments Med Management Crohn's Disease Outpatient (Routine) - Closed Specialty Diagnoses / Procedures Referred By Contact Refer red To Contact Pharmacy Juan Jane [facility] Yelena MMahendraB.S. [address] [place] [address] Referral ID Status Reason Start Date Expiration Date Visits Requ ested Visits Authorized [id number] Closed 03/15/2021 03/15/2022 1 1 Encounter Details Date Type Department Care Team Description 03/22/2021 Telemedicine Division of Minerva Jane M.B.B.S. [address] [place] [address] Colitis Crohn's Gastroenterology in Zoe Zambrano, Pharm.D., R.Ph. [address] [place] [address] ([facility]) [place], [place] [address] [place], [place] [address] Social History Tobacco Use Types Packs/Day Years [...] documented as of this encounter Consult Notes Zoe Zambrano, Pharm.D., R.Ph. - 03/22/2021 2:30 PM CDT Medication Therapy Management SUBJECTIVE Laurel Mcdonald is a 26 y.o. female, who is contacted through telehealth today by [facility] Pharmacist for comprehensive medication review and clinical question: Patient with Crohn's disease on ustekinumab and 6 MP wanting to conceive. She was referred by Juan Jane M.B.B.SJulia. Patient was at the visit unaccompanied. The patient does not appear cognitively impaired at this visit. Purpose of today's visit is: medication education. Crohn's disease Laurel Mcdonald was originally diagnosed in February 2017. Per referring IBD provider: - colonoscopy in July 2018, and and MR enterography in January 2019 which suggested remission - last visit 04/14/2020, Blood tests mostly unremarkable. Colonoscopy was completely normal as were the biopsies. There is no evidence of active inflammation nor dysplasia. Therefore we would recommend repeat colonoscopy in 1-2 years for surveillance of dysplasia. No change in medications for now - At present, Ms. Mcodnald is interested in conceiving in the near future - Referred to discuss Crohn's medications, will also discuss with referring provider Current crohn's treatment: - ustekinumab 90 mg subcutaneously every 8 weeks - 6-mercaptopurine 50 mg daily Takes nortriptyline daily at bedtime and ondansetron as needed (last used 3 months ago) for nausea. She does note worsening nausea with missed dose of nortriptyline. Previous IBD medical therapies include: Infliximab (antibodies), adalimumab (discontinued Fall 2017,started in combination with azathioprine however did not tolerate azathioprine, discontinued due to antibodies and active disease), azathioprine (did not tolerate due to side effects, significant fatigue), ustekinumab (10/2018-current), 6 mercaptopurine (current) Health Maintenance Skin check: 09/26/2020 NSAIDs: none, uses Midol and Tylenol Tobacco use: none Medication Review Albuterol inhaler - for exercise, has not used in 6 months or so Norethindrone - control, currently taking Medication reconciliation was accomplished by review of all prescription medications, ffjg-ocz-xauwzzy medications and vitamin and supplements from patient's memory and electronic health record (EHR) medication list. These were reviewed and reconciled with the patient. Adherence: Patient uses the following medication adherence strategies: none. She takes medications at the following times of day: morning and evening. Patient does NOT express concern regarding the convenience of the medication regimen including medication burden and timing of medications. Patient reports missing a dose of medication less than once per month. The following portions of the patient's history were reviewed and updated as appropriate: allergies,current medications, immunizations, family history, medical history, social history, surgical history and problem list. Pertinent patient lifestyle habits, preferences and beliefs, health and functional goals, health literacy, cultural factors and socioeconomic factors were assessed at this appointment with no concerns noted. OBJECTIVE Wt Readings from Last 3 Encounters: 02/01/21 63.5 kg 07/29/20 64 kg 06/21/20 65 kg Lab Results Component Value Date CREATININE 0.85 03/01/2021 ALT 8 03/01/2021 AST 16 03/01/2021 ALKPHOS 42 03/01/2021 Estimated Creatinine Clearance: 99.7 mL/min (by C-G formula based on SCr of 0.85 mg/dL). Lab Results Component Value Date HGB 14.1 03/01/2021 HCT 41.7 03/01/2021 RBC 4.33 03/01/2021 MCV 96.3 03/01/2021 RDW 12.4 03/01/2021 PLT 333 03/01/2021 WBC 6.2 03/01/2021 NEUTROPHILS 3.53 03/01/2021 MONOSABS 0.60 03/01/2021 EOSABS 0.23 03/01/2021 BASOSABS 0.07 03/01/2021 Lab Results Component Value Date CRP <3.0 04/14/2020 Lab Results Component Value Date 45CSGMCGKG3 <4.0 08/12/2020 11QWZGMGD5 37 08/12/2020 25OHVITDTTL 37 08/12/2020 IRON 75 09/27/2017 TIBC 385 09/27/2017 FERRITIN 33 08/12/2020 LABIRON 19 09/27/2017 [id number] 285 09/27/2017 Lab Results Component Value Date ADALIMUMREF <0.8 (L) 08/29/2018 INFLIXIMABCO <1.0 (L) 05/23/2017 INFLIXIMABAB 126 (A) 05/23/2017 6METHYLMERC 3.15 02/12/2017 Lab Results Component Value Date [id number] 02/12/2017 *Normal* In this whole blood sample, the profile of activity of thiopurine methyltransferase using three different substrates was normal or essentially normal. HEPBSAB Indet 02/11/2017 HEPBSAG Negative 02/11/2017 HEPBSABQN 9.9 02/11/2017 TBGOLDRES Negative 02/13/2017 Pre-Biologic/Immunosuppression workup includes: TPMT: Normal NUDT15: Unknown Hepatitis B: negative for infection, 02/11/2017 TB: negative, 02/13/2017 ASSESSMENT / PLAN ASSESSMENT Pharmacotherapy was reviewed today with a patient-centered approach for indication, effectiveness, safety and convenience, taking into account pertinent health and functional status, risk factors, health data, cultural factors, health literacy and access to medications. Renal/hepatic dosing: Medications are appropriately dosed based on current renal and hepatic function. Drug-drug interactions: Did not identify drug-drug interactions of clinical significance. Drug-disease interactions: Did not identify drug-disease interactions of clinical significance. Medication list discrepancies: Medication list is up to date with minor discrepancies; please see updated medication list for details. Medication adherence: No adherence issues were identified. Crohn's disease Laurel Mcdonald is at goal of remission per the 2018 ACG Management of Crohn's Disease in Adults guidelines. She is interested in conception. The PIANO study shows the importance of continuing Crohn's therapy (ustekinumab and 6-MP) throughout for most favorable outcomes. Ustekinumab and6-MP can also be continued throughout . Thiopurine labs are up to date. She has started taking a vitamin. She uses adjunctive therapy including nortriptyline for nausea. Per AskMayoExpert, nortriptyline (TCA) is considered a third-line agent for treatment of depression in due to risk of withdrawal. Ms. Mcdonald is taking a low dose for nausea, 25 mg (depression dosing can be up to 150 mg daily), however risk cannot be ruled out. Nortriptyline overall is thought to be safe with per [employer]. Acknowledging current nausea is unrelated to , other considerations to help with nausea per Nausea and Vomoiting in on AskMayoExpert may include. - Vitamin B6 and doxylamine are specifically used with nausea in . - H2RA or PPI - Promethazine (Phenergan), Diphenhydramine (Benadryl, Prochlorperazine (Compazine), or Dimenhydrinate (Dramamine) She rarely uses ondansetron (last used 6 months ago) and I recommended avoiding ondansetron, seekingoptions from primary care/OB regarding medications for nausea throughout as there are other options that would be recommended first. Education In this prospective cohort of women with IBD, the use of biologic and thiopurine therapy, alone or in combination, was not associated with an increase in congenital malformations, SAB, , LBW, or infections in the first year of life. However, maternal disease activity was associated with SAB, and with infections. -PIANO study: Spring Lopez, Dean M, Scooby S, et al. and Outcomes after Exposure To Biologics and Thiopurines among Women with Inflammatory Bowel Disease. Gastroenterology. 2020;160(4):3122-6851. exposure: ???Breast fed infant exposed to immunomodulators, biologics, or combination therapy in PIANO had similar milestones achievement and were not more likely to have an infection in the 1st 12 months of life compared to infants who were not breastfed. - Janes Vaughn Vande Casteele, et al. The effects of on the pharmacokinetics of infliximaband adalimumab in inflammatory bowel disease. Aliment Pharmacol Ther. 2017;45:3777-5656. - Evangelista Londono Bernasko, et al. Inflammatory bowel disease in clinical care pathway: A report from the [place] [employer] IBD Parenthood Project working Group. Gastroenterology. 2019;156:3451-3192. - Infant's vaccines: Avoid live vaccines for first 6 months of life (I.e. Rotavirus). Can alternatively check infant drug levels and if undetectable, start Rotavirus. - Goal is to avoid prednisone during if possible. Risks of prednisone in include: increase the risk of -induced hypertension, gestational diabetes, osteoporosis, infection,premature rupture of the membranes (PROM) and intrauterine growth restriction Health Maintenance Vaccines are not up to date. Discuss vaccinations with primary care provider to ensure patient receives appropriate vaccines at the appropriate times. Avoid live vaccines. Patient-specific Recommendations Vaccine Recommended Immunosuppression Adult Schedule per CDC, unless otherwise stated Up to date - continue annually Influenza Indicated annually (intramuscular injection formulation) Per Avel et al. Gastroenterology and Hepatology, 2020: high-dose recommended for patients > 65 years of age or on anti-TNF monotherapy Avoid LIVE nasal mist (LAIV) with immunosuppression. Up to date Pneumonia (PCV13) Pneumonia (PPSV23) If no previous vaccination, PCV13 followed by PPSV23 8 or more weeks later. Second dose of PPSV23 5 years after first PPSV23 dose. Third and final PPSV23 dose at least 5 years after second dose AND at age 65 or older. Not applicable Shingles (SHINGRIX) Two dose series at 0 and 2-6 months at 50 years and older Laboratory tests indeterminate in 2017 acute for immunity consider rechecking lab or completing series again Hepatitis B series Per Avel et al. Gastroenterology and Hepatology, 2020: Recommended with IBD if not immune (Recombivax HB, Engerix-B, Twinrix, Heplisav- B (HepB-CpG)). Recheck for immunity 1 to 2 months after last dose. Up to date Hepatitis A series Per Avel et al. Gastroenterology and Hepatology, 2020: Recommended with IBD if not immune (Havrix, Vaqta, Twinrix). Up to date HPV series Recommended through age 26 years with immunocompromising conditions. Consideration for vaccination through age 45 years per package insert if likely to have new sexual partners. Indicated anytime - Also recommended with considering as COVID-19 infection can be more serious if it occursduring . COVID-19 Per Ask [place] Expert, recommended for patients with inflammatory bowel disease and immunosuppressing medications. Do not administer any other vaccines within 14 days. Skin checks recommended annually, next due: 09/2021 Recommend routine gynecology appointments. Educated on importance of mental health and encouraged discussing further with PCP if potentially beneficial. Continue to avoid NSAIDs (ibuprofen, Advil, Motrin, naproxen, Aleve). Acetaminophen (brand name Tylenol) is generally a safe option. Medication Review The following medications and/or conditions were reviewed by pharmacist and found to be appropriate with no medication-related problems at this time, including: albuterol inhaler, norethindrone (will be discontinued to achieve conception, continues currently). PLAN The following action(s) were taken under the authority of the collaborative practice agreement with patient's IBD provider unless otherwise noted. - Laurel Mcdonald received education on ustekinumab (STELARA) and 6- mercaptopurine today and considerations with . - Per PIANO study, continue ustekinumab and 6-MP throughout . Greatest risk is disease flare. Avoidance of prednisone if possible is best. - Continue vitamin daily - Discuss all medications with OB provider. Per my evaluation: - Albuterol: can be used throughout . Currently she has not used in 6 months. - Nortriptyline: Cannot rule out infant risk (concern for withdrawal with tricyclic antidepressants). Consider alternative option (discussed above). - Ondansetron: avoid and discuss other options with provider - Delay rotavirus until infant is 6 months old. - Recommended follow-up with referring provider: to be scheduled anytime - Remaining questions: how/who to establish with throughout ,. Follow- up timing for Crohn's follow-up - Recommend getting up to date with non-live vaccines with primary care provider, see chart above. - Recommend annual skin checks Follow-up with pharmacist in three months by telehealth for medication review. Laurel expressed understanding of, and agreement with plan of care. She was provided a verbal summary of these recommendations and was provided a written summary of recommendation via patient online services. Plan of care was communicated to the referring provider via an electronically routed chart. Total time spent was 28 minutes, with more than 50% of the time spent on counseling, coordination ofcare and patient education. Zoe Zambrano, Pharm.D., R.Ph. Inflammatory Bowel Disease Clinical Pharmacist documented in this encounter Miscellaneous Notes Addendum Note - Zoe Zambrano, Pharm.D., R.Ph. - 03/22/2021 2:30 PM CDT Addended by: ZOE ZAMBRANO on: 03/22/2021 05:28 PM Modules accepted: Orders documented in this encounter Plan of Treatment Scheduled Referrals Name Type Priority Associated Diagnoses Order S chedule Video anyplace Outpatient Referral Routine Colitis Crohn's Exp ected: visit (HCC) 06/22/2021, Expires: 03/22/2024 documented as of this encounter Visit Diagnoses Diagnosis Colitis Crohn's (HCC) documented in this encounter Care Teams Dryer Feeder Relationship Specialty Start Date End Date Belkys Marshall, KARL, C.N.P., M.S. PCP - General Family Medicine 11/16/19 [address] [place] [address] documented as of this encounter
--- OUTSIDE RECORDS SUMMARY | 2022-08-31 12:36 | XMS_ITS | Encounter Summary ---
:1995 Author Organization [facility] Address [address] [place] [address] Care Team Providers Name Role Phone Belkys Marshall APRN, C.N.Mame., M.S. Primary Care Provider +1- [phone] Encounter Details Date Type Department Care Team Description 02/12/2021 Admin Visit Department of Family Medicine, [address] [address] [facility] [phone] Social History Tobacco Use Types Packs/Day Years [...] 11/23/2021 organizations such as anabaptist groups, unions, fraternal or athletic groups, or [...] Date Last Indicated Resolved Time COVID19 Pending 02/12/2021 02/12/2021 02/13/2021 2:08 PM CDT documented as of this encounter Care Teams Home Demonstrator Relationship Specialty Start Date End Date Belkys Marshall, KARL, C.N.P., M.S. PCP - General Family Medicine 11/16/19 [address] [place] [address] documented as of this encounter
--- OUTSIDE RECORDS SUMMARY | 2022-08-31 12:36 | XMS_ITS | Encounter Summary ---
:1995 Author Organization [facility] Address [address] [place] [address] Care Team Providers Name Role Phone Belkys Marshall APRN, C.NVira., M.S. Primary Care Provider +1- [phone] Reason for Visit Reason Comments Med Refill Encounter Details Date Type Department Care Team Description 03/21/2021 Refill Division of Gastroenterology in [facility] Refill [place], [place] Magdalena Martinez.B.S. [address] [place] [address] [place] [phone] [place], [place] [phone] (Wo rk) Social History Tobacco Use Types [...] 11/23/2021 organizations such as mandaeism groups, unions, fraternal or athletic groups, or [...] (HCC) documented in this encounter Care Teams Settlement Clerk Relationship Specialty Start Date End Date Belkys Marshall APRN, C.N.P., M.S. PCP - General Family Medicine 11/16/19 [address] [place] [address] documented as of this encounter
--- OUTSIDE RECORDS SUMMARY | 2022-08-31 12:36 | XMS_ITS | Encounter Summary ---
:1994 Author Organization [facility] Address [address] [place] [address] Care Team Providers Name Role Phone Belkys Marshall APRN C.N.P., M.S. Primary Care Provider +1- [phone] Encounter Details Date Type Department Care Team Description 02/02/2021 Orders Only RST PCP [facility] Nilam Melo M.D. [address] [place], [place] [phone] (Wo rk) Social History Tobacco [...] or relatives? How often do you attend restorationism or 1 to 4 times per year 11/11 oriental orthodox services? Do you belong to any clubs or Yes 11/23/2021 organizations such as restorationism groups, unions, fraternal or athletic groups, or [...] on filedocumented in this encounter Care Teams Tent Worker Relationship Specialty Start Date End Date Belkys Marshall, KARL, C.N.P., M.S. PCP - General Family Medicine 11/16/19 [address] [place] [address] documented as of this encounter
--- OUTSIDE RECORDS SUMMARY | 2022-08-31 12:36 | XMS_ITS | Encounter Summary ---
:1994 Author Organization [facility] Address [address] [place] [address] Care Team Providers Name Role Phone Belkys Marshall APRN, C.NVira., M.S. Primary Care Provider +1- [phone] Reason for Visit Reason Comments Med Refill Encounter Details Date Type Department Care Team Description 11/15/2020 Refill Division of Gastroenterology in [facility] Refill [place], [place] Magdalena Martinez.B.S. [address] [place] [address] [place] [phone] [place], [place] [phone] (Wo rk) Social History Tobacco Use Types [...] (HCC) documented in this encounter Care Teams Science Center Display Builder Relationship Specialty Start Date End Date Belkys Marshall APRN, C.N.P., M.S. PCP - General Family Medicine 11/16/19 [address] [place] [address] documented as of this encounter
--- OUTSIDE RECORDS SUMMARY | 2022-08-31 12:36 | XMS_ITS | Encounter Summary ---
:1995 Author Organization [facility] Address [address] [place] [address] Care Team Providers Name Role Phone Belkys Marshall APRN, C.N.Mame., M.S. Primary Care Provider +1- [phone] Encounter Details Date Type Department Care Team Description 02/14/2021 Admin Visit Department of Family Medicine, [address] [address] [facility] [phone] Social History Tobacco Use Types Packs/Day Years [...] Date Last Indicated Resolved Time COVID19 Pending 02/14/2021 02/14/2021 02/14/2021 10:12 PM CDT documented as of this encounter Care Teams Rotary Drum Dyer Relationship Specialty Start Date End Date Belkys Marshall, KARL, C.N.P., M.S. PCP - General Family Medicine 11/16/19 [address] [place] [address] documented as of this encounter
--- OUTSIDE RECORDS SUMMARY | 2022-08-31 12:36 | XMS_ITS | Encounter Summary ---
:1994 Author Organization [facility] Address [address] [place] [address] Care Team Providers Name Role Phone Belkys Marshall APRN, C.N.P., M.S. Primary Care Provider +1- [phone] Reason for Referral Outpatient (Routine) - Closed Specialty Diagnoses / Procedures Referred By Contact Refer red To Contact Diagnoses Abnormal Pap Smear Personal History Belkys Marshall APRN, [facility] Procedures ICS IMPORT CUSTOMER SERVICE MANAGER Colposcopy procedure C.N.P., M.S. [address] [place] [phone] Referral ID Status Reason Start Date Expiration Date Visits Requ ested Visits Authorized [id number] Closed 02/12/2021 02/12/2022 1 1 Encounter Details Date Type Department Care Team Description 02/12/2021 Orders Only Department of Belkys Greene Abn ormal Pap Smear Medicine, [facility] Celina BARAJAS.N.Cherise, Perssofia nal History [facility] [place], [address] M[address] (Primary Dx) Street Professional [address] [place] [address] in [facility] [phone] [phone] [place] [address] (Work) [phone] Social History Tobacco Use Types Packs/Day Years [...] place to sleep or slept in a long-term (including now)? Education Answer Date Recorded What is the highest level of school Bachelor's degree (e.g., BA, AB, 09/27/2019 you have completed or the highest BS) degree you have received? Sex Assigned at Date Recorded Female 07/18/2021 2:49 PM CDT documented as of this encounter Plan of Treatment Scheduled Orders Name Type Priority Associated Diagnoses Order S chedule ICS IMPORT CUSTOMER SERVICE MANAGER Colposcopy Procedures Routine Abnormal Pap Smear Exp ected: 02/12/2021 procedure Personal History (Approximat e), Expires: 2023 documented as of this encounter Visit Diagnoses Diagnosis Abnormal Pap Smear Personal History - Pr imary documented in this encounter Additional Health Concerns Infection Onset Date Last Indicated Resolved Time COVID19 Pending 02/12/2021 02/12/2021 02/13/2021 2:08 PM CDT documented as of this encounter Care Teams Extruder Relationship Specialty Start Date End Date Belkys Marshall APRN, C.N.P., M.S. PCP - General Family Medicine 11/16/19 [address] [place] [address] documented as of this encounter
--- OUTSIDE RECORDS SUMMARY | 2022-08-31 12:36 | XMS_ITS | Encounter Summary ---
:1994 Author Organization [facility] Address [address] [place] [address] Care Team Providers Name Role Phone Belkys Marshall APRN, C.N.P., M.S. Primary Care Provider +1- [phone] Reason for Visit Reason Comments Immunizations Outpatient (Routine) - Closed Specialty Diagnoses / Procedures Referred By Contact Refer red To Contact Belkys Marshall APRN, C.N.Melanie Luong M.SJulia [address] [place] [phone] Referral ID Status Reason Start Date Expiration Date Visits Requ ested Visits Authorized [id number] Closed 07/29/2020 07/29/2021 1 1 Encounter Details Date Type Department Care Team Description 12/07/2020 Nurse Only Department of [facility] Maribel Marshall APRN, C.N.P., M.S. [address] [place] [phone] Immunizations Medicine, [facility] Millie Morales L.P.N. [address] [phone] [place] [address] Social History Tobacco Use [...] as of this encounter Visit Diagnoses Diagnosis Need Vaccine Immunization - Primary documented in this encounter Care Teams Glove Parts Inspector Relationship Specialty Start Date End Date Belkys Marshall APRN, C.N.P., M.S. PCP - General Family Medicine 1/6/20 [address] [place] [address] documented as of this encounter
--- OUTSIDE RECORDS SUMMARY | 2022-08-31 12:36 | XMS_ITS | Encounter Summary ---
:1994 Author Organization [facility] Address [address] [place] [address] Care Team Providers Name Role Phone Belkys Marshall APRN, C.N.P., M.S. Primary Care Provider +1- [phone] Reason for Visit Reason Onset Date Comments Testing For Upper Respiratory Virus Symptoms 02/14/2021 Encounter Details Date Type Department Care Team Description 02/14/2021 External Outreach Department of Stiven Abad Contact With And Medicine, [facility] Marilou Otero (Suspected) Exposure Building, in [address] [address] ([place], [place] Dx) [address] [facility] [address] [place], [place] [phone] (Work) [phone] Social History Tobacco Use Types Packs/Day Years [...] 11/23/2021 organizations such as sikhism groups, unions, fraRevoLaze or athletic groups, or school groups? How [...] documented as of this encounter Progress Notes Edwina Galan R.N. - 02/14/2021 9:28 AM CDT Encounter created for symptomatic infectious disease screening with possible COVID, Influenza, RSV, and/or Group A Strep testing. documented in this encounter Plan of Treatment Not on filedocumented as of this encounter Procedures Procedure Name Priority Date/Time Associated Diagnosis Comme nts SARS CORONAVIRUS-2 Routine 02/14/2021 11:07 AM Contact With An d Results for this RNA, V CDT (Suspected) Exposure procedu re are in To COVID-19 the results section. documented in this encounter Results SARS Coronavirus-2 RNA, V Symptomatic (02/14/2021 11:07 AM CDT) [facility] Method Time Signature SARS-CoV-2 Swab, 02/14/2021 MKTO Specimen Nasopharynx 10:11 PM Source CDT SARS CoV-2 Undetected Undetected 02/14/2021 MKTO RNA, TMA 10:11 PM CDT Comment: SARS-CoV-2 RNA absent. This result does not rule out COVID-19 in the patient, as the sensitivity of the test depends o n the timing of the specimen collection and the quality of the specim en. Result should be correlated with patient's history and clinical presentat ion. ----ADDITIONAL INFORMATION---- This molecular amplification test was pe rformed using the Aptima SARS-CoV-2 assay ([employer] on the [employer] POSs tem under emergency use authorization (EUA) by the U.S. Food and Drug Administ ration. Fact sheets for this EUA assay can be fo und at the following links: For Healthcare Providers: https://www.Medivance a.gov/media/470348/download For Patients: https://www.fda.gov/media/ 520857/download Specimen Anatomical Collection Method Collection Time Receive d Time (Source) Location / / Volume Laterality Varies 02/14/2021 11:07 02/14/2021 3:35 (Nasopharynx) AM CDT PM CDT Stiven Orourke D.O. LAB MICROBIOLOGY - GENERAL O RDERABLES Performing Organization Address City/State/ZIP Code Phon e Number [facility]- [address] [place] [id number] [place] [address] [place] [address] System in [address] documented in this encounter Visit Diagnoses Diagnosis Contact With And (Suspected) Exposure To COVID-19 - Primary documented in this encounter Additional Health Concerns Infection Onset Date Last Indicated Resolved Time COVID19 Pending 02/14/2021 02/14/2021 02/14/2021 10:12 PM CDT documented as of this encounter Care Teams Systems Specialist Relationship Specialty Start Date End Date Belkys Marshall APRN, C.N.P., M.S. PCP - General Family Medicine 11/16/[address] [place] [address] (work) documented as of this encounter
--- OUTSIDE RECORDS SUMMARY | 2022-08-31 12:37 | XMS_ITS | Encounter Summary ---
:1994 Author Organization [facility] Address [address] [place] [address] Care Team Providers Name Role Phone Belkys Marshall APRN C.N.P., M.S. Primary Care Provider +1- [phone] Reason for Visit Reason Comments Consult Outpatient (Routine) - Closed Specialty Diagnoses / Procedures Referred By Contact Refer red To Contact Breast Clinic Diagnoses Lesion Nipple Marge Hernandez M.D. [facility] [address] [place] [phone] Referral ID Status Reason Start Date Expiration Date Visits Requ ested Visits Authorized [id number] Closed 05/26/2020 05/26/2021 1 1 Encounter Details Date Type Department Care Team Description 06/21/2020 Comprehensive Visit Breast Diagnostic Becca Vanegas, [facility] [address] [facility] [address] [place] [phone] Social History Tobacco Use Types Packs/Day Years [...] Sign Reading Time Taken Comments Blood Pressure 118/80 06/21/2020 8:22 AM CDT Pulse 105 06/21/2020 8:22 AM CDT Temperature - - Respiratory Rate - - Oxygen Saturation - - Inhaled Oxygen Concentration - - Weight 65 kg (143 lb 4.8 oz) 06/21/2020 8:22 AM CDT Height 166.2 cm (5' 5.43) 06/21/2020 8:22 AM CDT Body Mass Index 23.53 06/21/2020 8:22 AM CDT documented in this encounter Consult Notes Becca Vanegas M.D. - 06/21/2020 9:00 AM CDT SUBJECTIVE Chief Complaint/Reason for Visit: Laurel Mcdonald is a 25 y.o. female presenting with a right nipple lesion. She noticed this in January of 2020. This is a dark spot on the right nipple outer lower quadrant. At times, after she did dated it, she would notice some discharge, clear, from this area. No nipple discharge prs. No nipple pain. She was seen by dermatology on May 27, 2020, here at [facility]. Picture is available in QREADS. She was then referred to the breast clinic. 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 She did not feel any breast lumps since the removal of her fibroadenomas. She has no family history of breast or ovarian carcinoma. Breast cancer risk profile: : 0 Menarche at age of: 13 Menstrual periods: Pr irregular Hysterectomy: No Oophrectomy: No Use of Control (incl. Pills/Patches/Implants/Injections): For more than 11 years, currently onbirth control pills Post-menopausal hormone use: No Fertility medications: No Diethylstilbestrol (WAGNER) exposure: Unknown Breast biopsies (needle or surgical): Removal of 2 fibroadenomas right breast 2012 Prior breast diagnoses: Fibroadenomas Prior breast surgeries: Excision biopsy Prior radiation therapy: No Tobacco use: No Second-hand smoke exposure (5-7 days/week): No Alcohol: No Regular exercise: Yes Family history: Negative for breast or ovarian carcinoma. Prostate cancer on maternal grandfather aswell as lung cancer. The following portions of the patient's history were reviewed and updated as appropriate: allergies,current medications, family history, medical history, social history, surgical history and problem list. ALLERGIES: Allergies Allergen Reactions ??? Codeine GI intolerance ??? Topiramate Other (see comments) CURRENT MEDICATIONS: Current Outpatient Medications: ??? albuterol (for_PROVENTIL HFA,VENTOLIN HFA) 90 mcg/actuation inhaler, Inhale 1-2 puffs., Disp: , Rfl: ??? mercaptopurine (PURINETHOL) 50 mg tablet, Take 50 mg by mouth daily. Take on an empty stomach., Disp: , Rfl: ??? norethindrone (Jemima) 0.35 mg tablet, Take 1 tablet (0.35 mg total) by mouth daily., Disp: 84 tablet, Rfl: 4 ??? nortriptyline (PAMELOR) 25 mg capsule, Take 1 capsule (25 mg total) by mouth at bedtime., Disp: 90 capsule, Rfl: 1 ??? ondansetron ODT (ZOFRAN-ODT) 4 mg disintegrating tablet, PLACE 1 TABLET ON THE TONGUE THREE TIMES A DAY, Disp: 30 tablet, Rfl: 0 ??? ustekinumab (Stelara) 90 mg/mL injection, Inject 1 mL (90 mg total) under the skin every 8 (eight) weeks., Disp: 2 mL, Rfl: 0 Review of Systems: OBJECTIVE PHYSICAL EXAM: BP 118/80 (BP Location: Left arm, Patient Position: Sitting, Cuff Size: Regular) Pulse 105 Ht 166.2 cm Wt 65 kg BMI 23.53 kg/m?? Body mass index is 23.53 kg/m??. General: Nonacute distress. Breasts: D -size cup, symmetric in size and shape, nipples are everted bilaterally. Small dark papule on the right nipple at around 08:00 o'clock, measuring about 3 mm, without crust formation and without ulceration (see pictures in QREADS). There is no supraclavicular, infraclavicular or axillary lymphadenopathy. Palpation of the right breast reveals soft, fibroglandular texture throughout, without dominant masses or nipple discharge. Palpation of the left breast reveals soft, fibroglandular texture throughout, without dominant masses or nipple discharge. ASSESSMENT / PLAN #1 Right nipple lesion This appears similar to a mole on breast examination, does not appear consistent with Paget's disease since it lacks ulceration or crustiness, although I noticed that she did have a crust on it during the examination in Dermatology. Also I think the likelihood of the nipple adenoma is quite low since this usually occurs within the nipple ducts and usually is palpable inside the nipple. I would recommend proceeding with a biopsy of this lesion. If the biopsy shows breast malignancy than breast imaging studies will be performed. However, given the low likelihood of this representing a breast lesion, I would prefer to avoid imaging on this young woman without a family history of breastcancer. She is not requiring follow-up breast imaging studies based on her prior history of fibroadenomas. I will discuss with Dermatology to request a biopsy of the nipple. #2 No family history of breast or ovarian carcinoma PATIENT EDUCATION: Ready to learn, no apparent learning barriers were identified; learning preferences include listening. Explained diagnosis and treatment plan; patient expressed understanding of the content. Total visit time greater than 30 minutes, with over 50% spent counseling with the patient and coordination of care activities described above. documented in this encounter Plan of Treatment Not on filedocumented as of this encounter Visit Diagnoses Diagnosis Lesion Nipple documented in this encounter Care Teams Nougat Cutter Machine Relationship Specialty Start Date End Date Belkys Marshall APRN, C.N.P., M.S. PCP - General Family Medicine 11/16/19 [address] [place] [address] documented as of this encounter
--- OUTSIDE RECORDS SUMMARY | 2022-08-31 12:37 | XMS_ITS | Encounter Summary ---
:1994 Author Organization [facility] Address [address] [place] [address] Care Team Providers Name Role Phone Belkys Marshall APRN, C.NJuliaP., M.S. Primary Care Provider +1- [phone] Reason for Visit Outpatient (Routine) - Closed Specialty Diagnoses / Procedures Referred By Contact Refer red To Contact Dermatology Joan Godoy M. D. [facility] [address] [place] [phone] Referral ID Status Reason Start Date Expiration Date Visits Requ ested Visits Authorized [id number] Closed 06/21/2020 06/21/2021 1 1 Encounter Details Date Type Department Care Team Description 09/26/2020 Office Visit Department of Susy Caldwell Wart (Prima ry Dx); Dermatology in M.D. [place], [place] [address] [facility] [address] [place] [phone] Social History Tobacco Use Types Packs/Day Years [...] 1 to 4 times per year 11/11 church services? Do you belong to any clubs or Yes 11/23/2021 organizations such as catholic groups, unions, fraTIO Networks or athletic groups, or school groups? How [...] documented as of this encounter Progress Notes Onel Artis M.D. - 09/26/2020 8:20 AM CST REFERRED BY Joan Godoy M.D. [address] [place] [phone] Supervised by: Correspondence to Dr. Onel Artis M.D. CHIEF COMPLAINT / REASON FOR VISIT Lesion on the right nipple History of Crohn's disease on immunosuppression History of verruca vulgaris HISTORY OF PRESENT ILLNESS Ms. Laurel Mcdonald is a 25 y.o. female who presents today for the above concerns. The patient was last seen in the Dermatology clinic in May 25, 2020, at which time patient had verruca vulgaris on the right 3rd finger treated with liquid nitrogen cryotherapy. The patient has a history of Crohn's previously treated with adalimumab and infliximab and now on Ustekinumab and Mercaptopurine. She ispresenting today for follow-up of a lesion on the right nipple that was evaluated on above date. This was thought to be benign. Patient was also evaluated by our breast safety and occupational health manager, whom she says referred her back to Dermatology for further evaluation, and possible biopsy if indicated. Patient was also seen by General Internal Medicine who recommended biopsy to further evaluate lesion. Patient also could like the above warts treated as they are still bothersome to her. Patient had full skin exam and during previous visit, and is here today for the above concerns PAST MEDICAL HISTORY No personal history of skin cancer Personal history of Crohn's disease on immunosuppression FAMILY HISTORY No family history of melanoma SOCIAL HISTORY Review Allergies Allergen Reactions ??? Codeine GI intolerance ??? Topiramate Other (see comments) PHYSICAL EXAM General: Well appearing and in no acute distress. Psych: Pleasant mood and affect. Eyes: No scleral injection or icterus. No conjunctivitis or eyelid abnormalities. Mouth: Unremarkable lips. Skin: Limited skin exam was done per patient request. Examination was performed of the Chest especially the right nipple, bilateral legs, digits, Exam is notable for Ramos type II Involving the right 3rd finger and 4th toe are hyperkeratotic papules consistent with verrucal vulgaris Involving lateral right nipple is a brown macule likely seborrheic keratosis versus nipple adenoma. No discharged noted .This was examined closely by Dr. Caldwell. Pictures were also taken. ASSESSMENT / PLAN #Brown papule on the lateral right nipple On today's exam with Dr. Caldwell, this was not concerning for skin or breast cancer. We suspect that this is likely a benign lesion e.g a seborrheic keratosis given that patient has seborrheic keratosis on other parts of her body. We opted for observation today. We obtained photos today to monitor closel y for any changes. Dr. Caldwell did not think that biopsy was indicated at this time. After discussion with the patient , she was comfortable observing this lesion for now and consider biopsy if this wereto change or become symptomatic. 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 After discussion of the risks, benefits and alternatives to treatment with cryotherapy, informed consent was obtained. We treated a total of 2 lesions with two 20-second freeze-thaw cycles of liquid nitrogen cryotherapy. The patient to lerated the procedure well. Aftercare instructions were provided in written and verbal form to the patient. Should any of these lesions recur, the patient should return for biopsy or further evaluation. I recommended that patient be scheduled at what clinic in the future if these lesions were do not resolve with this treatment The patient expresses understanding and is in agreement with the plan. All questions were answered to the best of my ability. It was a pleasure seeing Ms. Laurel Mcdonald today. INFORMED CONSENT Discussed the risks, benefits, alternatives, and the necessity of other members of the healthcare team participating in the procedure. All questions answered and consent given. PATIENT EDUCATION Ready to learn. No apparent learning barriers were identified. Learning preferences include listening. Explained diagnosis and treatment plan; patient/guardian of patient expressed understanding of thecontent. Onel Artis M.D. LING DIRECTOR Associated attestation - Susy Caldwell M.D. - 09/26/2020 2:00 PM MODELING DIRECTOR I saw and evaluated the patient, participating in the mckinnon elements of the service. I discussed the findings, assessment and plan with the resident/fellow and agree with resident/fellow???s findings andplan as documented in the resident/fellow's note. I was immediately available for the entirety of the procedure(s) and present for the mckinnon and critical portions. documented in this encounter Plan of Treatment Not on filedocumented as of this encounter Visit Diagnoses Diagnosis Wart - Primary Lesion Skin documented in this encounter Care Teams Photographic Printer Relationship Specialty Start Date End Date Belkys Marshall APRN, C.N.P., M.S. PCP - General Family Medicine 11/16/[address] [place] [address] documented as of this encounter
--- OUTSIDE RECORDS SUMMARY | 2022-08-31 12:37 | XMS_ITS | Encounter Summary ---
:1995 Author Organization [facility] Address [address] [place] [address] Care Team Providers Name Role Phone Belkys Marshall APRN C.NJuliaPJulia, M.S. Primary Care Provider +1- [phone] Reason for Visit Reason Onset Date Comments Testing For Upper Respiratory Virus Symptoms 10/19/2020 Encounter Details Date Type Department Care Team Description 10/19/2020 External Outreach Department of Nichelle Kim Infection Upper Medicine, [place] Cherise BlanchardATyrese Respiratory (Primary Clinic, in [place], [address] [place] [address] Dx) [place], [place] [address] [facility] [address] [place], [place] [phone] [address] (Work) [phone] Social History Tobacco Use Types Packs/Day Years [...] or relatives? How often do you attend synagogue or 1 to 4 times per year 11/11 baptism services? Do you belong to any clubs or Yes 11/23/2021 organizations such as synagogue groups, unions, fraternal or athletic groups, or [...] documented as of this encounter Progress Notes Marnie Felipe, L.P.N. - 10/19/2020 7:32 AM CST Encounter created for symptomatic infectious disease screening with possible COVID, Influenza, and RSV testing. PREVENTION OFFICER documented in this encounter Plan of Treatment Not on filedocumented as of this encounter Procedures Procedure Name Priority Date/Time Associated Diagnosis Comme nts SARS CORONAVIRUS-2 Routine 10/19/2020 7:38 AM Infection Upper Results for this RNA, V FIRE PREVENTION OFFICER Respiratory procedure are i n the results section. documented in this encounter Results SARS Coronavirus-2 RNA, V Symptomatic (10/19/2020 7:38 AM FIRE PREVENTION OFFICER) [facility] Method Time Signature SARS-CoV-2 Swab, 10/20/2020 ECLR Specimen Nasopharynx 2:56 AM FIRE PREVENTION OFFICER Source SARS CoV-2 Undetected Undetected 10/20/2020 ECLR RNA, TMA 2:56 AM FIRE PREVENTION OFFICER Comment: SARS-CoV-2 RNA absent. This result does not rule out COVID-19 in the patient, as the sensitivity of the test depends o n the timing of the specimen collection and the quality of the specim en. Result should be correlated with patient's history and clinical presentat ion. ----ADDITIONAL INFORMATION---- This test is performed using the Aptima SARS-CoV-2 assay ([employer] which has received Emergency Use Authori zation (EUA) by the U.S. Food and Drug Administration. Fact sheets for this Emergency Use Autho rization (EUA) assay can be found at the following links: For Healthcare Providers: https://www.EGEN a.gov/media/598660/download For Patients: https://www.fda.gov/media/ 720583/download Specimen Anatomical Collection Method Collection Time Receive d Time (Source) Location / / Volume Laterality Varies 10/19/2020 7:38 AM 0 9:46 (Nasopharynx) FIRE PREVENTION OFFICER PM FIRE PREVENTION OFFICER Marlon Garcia P.A.-C. LAB MICROBIOLOGY - GENERAL O HEATHER Performing Organization Address City/State/ZIP Code Phon e Number [facility]- [address] [place] [address] [phone] [facility] [place] [address] System in [address] documented in this encounter Visit Diagnoses Diagnosis Infection Upper Respiratory - Primary documented in this encounter Additional Health Concerns Infection Onset Date Last Indicated Resolved Time COVID19 Pending 10/19/2020 10/19/2020 10/20/2020 2:56 AM FIRE PREVENTION OFFICER documented as of this encounter Care Teams Block Press Operator Relationship Specialty Start Date End Date Belkys Marshall, KARL, C.N.P., M.S. PCP - General Family Medicine 11/16/[address] [place] [address] documented as of this encounter
--- OUTSIDE RECORDS SUMMARY | 2022-08-31 12:37 | XMS_ITS | Encounter Summary ---
:1995 Author Organization [facility] Address [address] [place] [address] Care Team Providers Name Role Phone Belkys Marshall APRN, C.N.Mame., M.S. Primary Care Provider +1- [phone] Encounter Details Date Type Department Care Team Description 10/14/2020 Admin Visit Department of Family Medicine, [facility] [place] in [place], [place] [address] [address] [facility] [phone] Social History Tobacco Use Types Packs/Day Years [...] Date Last Indicated Resolved Time COVID19 Pending 10/14/2020 10/14/2020 10/15/2020 4:36 PM SLEEP SCIENTIST documented as of this encounter Care Teams Central Processing Technician Relationship Specialty Start Date End Date Belkys Marshall, KARL, C.N.P., M.S. PCP - General Family Medicine 11/16/19 [address] [place] [address] documented as of this encounter
--- OUTSIDE RECORDS SUMMARY | 2022-08-31 12:37 | XMS_ITS | Encounter Summary ---
:1995 Author Organization [facility] Address [address] [place] [address] Care Team Providers Name Role Phone Belkys Marshall APRN C.N.P., M.S. Primary Care Provider +1- [phone] Encounter Details Date Type Department Care Team Description 09/26/2020 Ancillary Procedure Department of Dermatology Social History Tobacco Use Types Packs/Day Years [...] 1 to 4 times per year 11/11 roman catholic services? Do you belong to any clubs [...] Procedure Name Priority Date/Time Associated Comments Diagnosis DERMATOLOGY IMAGE Routine 09/26/2020 12:00 Result s for this EXAM AM LEARNING TECHNOLOGIST procedure are i n the results section. documented in this encounter Results Breast(s)-Dermatology Image Exam (09/26/2020 12:00 AM LEARNING TECHNOLOGIST) Specimen (Source) Anatomical Location Collection Method / Collectio n Time Received Time / Laterality Volume Narrative IIMS - 09/26/2020 11:08 AM LEARNING TECHNOLOGIST This order has been created and auto-finalized [...] on filedocumented in this encounter Care Teams Visual Merchandising Associate Relationship Specialty Start Date End Date Belkys Marshall APRN, C.N.P., M.S. PCP - General Family Medicine 11/16/19 [address] [place] [address] documented as of this encounter
--- OUTSIDE RECORDS SUMMARY | 2022-08-31 12:37 | XMS_ITS | Encounter Summary ---
:1995 Author Organization [facility] Address [address] [place] [address] Care Team Providers Name Role Phone Belkys aMrshall APRN, C.NJuliaP., M.S. Primary Care Provider +1- [phone] Reason for Referral Outpatient (Routine) - Closed Specialty Diagnoses / Procedures Referred By Contact Refer red To Contact Dermatology Joan Godoy M. D. [facility] [address] [place] [phone] Referral ID Status Reason Start Date Expiration Date Visits Requ ested Visits Authorized [id number] Closed 06/21/2020 06/21/2021 1 1 Scheduling Instructions Please schedule with provider form derm breast group. thanks Encounter Details Date Type Department Care Team Description 06/21/2020 Orders Only Department of Dermatology in [place], [place] [address] [place] [phone] Social History Tobacco Use Types Packs/Day [...] Name Type Priority Associated Order Schedule Diagnoses Dermatology office Outpatient Referral Routine Ex pected: visit (clinic) 06/21/2020 (Approximate), Expires: 06/21/2023 documented as of this encounter Visit Diagnoses Not on filedocumented in this encounter Care Teams Supervisor Shuttle Veneering Relationship Specialty Start Date End Date Belkys Marshall APRN, C.N.P., M.S. PCP - General Family Medicine 11/16/19 [address] [place] [address] documented as of this encounter
--- OUTSIDE RECORDS SUMMARY | 2022-08-31 12:37 | XMS_ITS | Encounter Summary ---
:1995 Author Organization [facility] Address [address] [place] [address] Care Team Providers Name Role Phone Belkys Marshall APRN, C.N.Mame., M.S. Primary Care Provider +1- [phone] Encounter Details Date Type Department Care Team Description 10/12/2020 Admin Visit Department of Family Medicine, [facility] [place] in [place], [place] [address] [address] [facility] [phone] Social History Tobacco Use Types Packs/Day Years [...] or relatives? How often do you attend moravian or 1 to 4 times per year 11/11 sikhism services? Do you belong to any clubs or Yes 11/23/2021 organizations such as moravian groups, unions, fraternal or athletic groups, or [...] Date Last Indicated Resolved Time COVID19 Pending 10/12/2020 10/12/2020 10/13/2020 12:50 PM MORNING NEWS PRODUCER documented as of this encounter Care Teams Line Rider Relationship Specialty Start Date End Date Belkys Marshall, KARL, C.N.P., M.S. PCP - General Family Medicine 11/16/19 [address] [place] [address] documented as of this encounter
--- OUTSIDE RECORDS SUMMARY | 2022-08-31 12:37 | XMS_ITS | Encounter Summary ---
:1995 Author Organization [facility] Address [address] [place] [address] Care Team Providers Name Role Phone Belkys Marshall APRN, C.N.P., M.S. Primary Care Provider +1- [phone] Reason for Visit Reason Comments COVID Nurse Line Encounter Details Date Type Department Care Team Description 05/31/2020 Clinical Communication Breast Diagnostic [facility] in [place], [place] C.N.P. [address] [place] [address] [place] [address] [phone] Social History Tobacco Use Types Packs/Day Years [...] 1 to 4 times per year 11/11 mormonism services? Do you belong to any clubs [...] place to sleep or slept in a fdc (including now)? Education Answer Date Recorded What is the highest level of school Bachelor's degree (e.g., BA, AB, 09/27/2019 you have completed or the highest BS) degree you have received? Sex Assigned at Date Recorded Female 07/18/2021 2:49 PM CDT documented as of this encounter Miscellaneous Notes Telephone Encounter - Brandon King, RJuliaN. - 05/31/2020 11:25 AM CDT COVID-19 Nurse Appointment Scheduling Screening ASSESSMENT COVID Schedule Appointment Screening In the past 30 days, have you been tested for COVID-19 with a positive or pending result?: Yes tested with NEGATIVE results (on 05/26/20) In the past 14 days have you experienced any of the following symptoms?: Fever, New chills, New headache, New sore throat, New myalgias (muscle aches) Have you had close contact with a person who has a LABORATORY CONFIRMED case of COVID-19?: No Which of your symptoms have been present in the last 48 hours?: No symptoms noted in the last 48 hours Date of last reported symptom: 05/29/20 PLAN Endpoint recommendation: Not appropriate for appointment/scheduling at this time. We will need to delay appointment/scheduling until 06/13/20. Care Points provided: STANDARD PRECAUTIONS FOR ALL PATIENTS: Wash hands often with soap and water for at least 20 seconds, especially after blowing your nose, coughing, sneezing, or having been in a public place. If soap and water aren't available, use a hand switchboard wirer that contains at least 60% alcohol. Avoid close contact with anyone who may be exhibiting respiratory symptoms such as coughing and sneezing. Avoid touching your eyes, nose and mouth. Clean and disinfect frequently touched surfaces daily. Cover your mouth and nose with a cloth face cover when around others or in public. The cloth face cover is not a substitute for social distancing. Continue to keep about 6 feet between yourself andothers. Monitor for symptoms. Do not take your temperature within 30 minutes of exercise. If your test or screen is negative and new symptoms develop please contact your provider. Educational Resource: https://www.cdc.gov/coronavirus/2019-ncov/jvhdzaw-yxhsnir-exku/index.html Education: patient/caregiver Patient/caregiver able to teach back Patient agreeable to plan of care: Yes The following references were used: [facility] novel coronavirus (COVID- 19) resources Telephone Encounter - Rafa Britni Mitchell - 05/31/2020 11:14 AM CDT ([facility] and [facility] locations only: If the patient is not having symptoms and is requesting COVID-19 Nasal Swab testing only, use the process listed in the COVID-19 Patient Requesting COVID PCR Test OTG COVID-19 [place] Patient Requesting COVID PCR Test). 1. Do you have a pending COVID test because you had symptoms or exposure to someone with COVID or you have tested positive for COVID in the last 30 days? no 2. In the past 14 days, do you, anyone in the household, or anyone you have had prolonged exposure have any of the following? a. Fever greater than or equal to 37.8 C (100.0 F)? no b. New symptoms (Specifically: headache, cough, shortness of breath, respiratory distress, sore throat, diarrhea, nausea, vomiting, chills and repeated shaking with chills, myalgia's (muscle aches), loss of smell, or change or loss of taste sensation)? yes c. Had close contact with a patient with known or possible COVID-19 in the last 14 days? no Route reply to: [id number] Scheduling Contact Number: documented in this encounter Plan of Treatment Not on filedocumented as of this encounter Visit Diagnoses Not on filedocumented in this encounter Care Teams Curator Of Education Relationship Specialty Start Date End Date Belkys Marshall, KARL, C.N.P., M.S. PCP - General Family Medicine 11/16/19 [address] [place] [address] documented as of this encounter
--- OUTSIDE RECORDS SUMMARY | 2022-08-31 12:37 | XMS_ITS | Encounter Summary ---
:1995 Author Organization [facility] Address [address] [place] [address] Care Team Providers Name Role Phone Belkys Marshall APRN, C.N.P., M.S. Primary Care Provider +1- [phone] Reason for Visit Reason Onset Date Comments Testing For Upper Respiratory Virus Symptoms 10/27/2020 Encounter Details Date Type Department Care Team Description 10/27/2020 External Outreach Department of Varsha Greene APRN C.N.P., M.S. [address] [place] [id number] Infection Upper Medicine, [place] Marlon Garcia, P.A.-CJulia [address] [place] [phone] Respiratory (Primary Clinic, in [place], ) [address] [address] Social History Tobacco Use Types Packs/Day Years [...] or relatives? How often do you attend spiritism or 1 to 4 times per year 11/11 jew services? Do you belong to any clubs or Yes 11/23/2021 organizations such as spiritism groups, unions, fraternal or athletic groups, or [...] documented as of this encounter Progress Notes Anna Multani RAbdirashid. - 10/27/2020 7:22 AM CST Encounter created for symptomatic infectious disease screening with possible COVID, Influenza, and RSV testing. LIFE FORENSIC GENETICIST documented in this encounter Plan of Treatment Not on filedocumented as of this encounter Procedures Procedure Name Priority Date/Time Associated Diagnosis Comme nts SARS CORONAVIRUS-2 Routine 10/27/2020 9:23 AM Infection Upper Results for this RNA, V WILDLIFE FORENSIC GENETICIST Respiratory procedure are i n the results section. documented in this encounter Results SARS Coronavirus-2 RNA, V Symptomatic (10/27/2020 9:23 AM WILDLIFE FORENSIC GENETICIST) [facility] Method Time Signature SARS-CoV-2 Swab, 10/27/2020 ECLR Specimen Nasopharynx 10:07 PM Source WILDLIFE FORENSIC GENETICIST SARS CoV-2 Undetected Undetected 10/27/2020 ECLR RNA, TMA 10:07 PM WILDLIFE FORENSIC GENETICIST Comment: SARS-CoV-2 RNA absent. This result does not rule out COVID-19 in the patient, as the sensitivity of the test depends o n the timing of the specimen collection and the quality of the specim en. Result should be correlated with patient's history and clinical presentat ion. ----ADDITIONAL INFORMATION---- This test is performed using the Aptima SARS-CoV-2 assay ([employer] which has received Emergency Use Authori zation (EUA) by the U.S. Food and Drug Administration. Fact sheets for this Emergency Use Autho rization (EUA) assay can be found at the following links: For Healthcare Providers: https://www.Tailster a.gov/media/285241/download For Patients: https://www.fda.gov/media/ 543060/download Specimen Anatomical Collection Method Collection Time Receive d Time (Source) Location / / Volume Laterality Varies 10/27/2020 9:23 AM 0 3:36 (Nasopharynx) WILDLIFE FORENSIC GENETICIST PM WILDLIFE FORENSIC GENETICIST Marlon Garcia P.A.-C. LAB MICROBIOLOGY - GENERAL O HEATHER Performing Organization Address City/State/ZIP Code Phon e Number [facility]- [address] [place] [phone] [facility] [place] [address] System in [address] documented in this encounter Visit Diagnoses Diagnosis Infection Upper Respiratory - Primary documented in this encounter Additional Health Concerns Infection Onset Date Last Indicated Resolved Time COVID19 Pending 10/27/2020 10/27/2020 10/27/2020 10:07 PM WILDLIFE FORENSIC GENETICIST documented as of this encounter Care Teams Public Health Assistant Relationship Specialty Start Date End Date Belkys Marshall, KARL, C.N.P., M.S. PCP - General Family Medicine 11/16/19 [address] [place] [address] documented as of this encounter
--- OUTSIDE RECORDS SUMMARY | 2022-08-31 12:37 | XMS_ITS | Encounter Summary ---
:1995 Author Organization [facility] Address [address] [place] [address] Care Team Providers Name Role Phone Belkys Marshall APRN C.N.P., M.S. Primary Care Provider +1- [phone] Encounter Details Date Type Department Care Team Description 06/20/2020 Clinical Communication Breast Diagnostic Becca Vanegas, Clinic in [facility] [address] [place] [address] [address] [place] [phone] Social History Tobacco Use Types Packs/Day Years [...] this encounter Miscellaneous Notes Telephone Encounter - Britni Craig - 06/20/2020 1:09 PM CDT ([facility] and [facility] locations only: If the patient is not having symptoms and is requesting COVID-19 Nasal Swab testing only, use the process listed in the COVID-19 Patient Requesting COVID PCR Test OTG COVID-19 [place] Patient Requesting COVID PCR Test). 1. Do [...] or change or loss of taste sensation)? no c. Had close contact with a patient with known or possible COVID-19 in the last 14 days? no Route reply to: Scheduling Contact Number: [phone] documented in this encounter Plan of Treatment Not on filedocumented as of this encounter Visit Diagnoses Not on filedocumented in this encounter Care Teams Facepiece Line Supervisor Relationship Specialty Start Date End Date Belkys Marshall, KARL, C.N.P., M.S. PCP - General Family Medicine 11/16/19 [address] [place] [address] documented as of this encounter
--- OUTSIDE RECORDS SUMMARY | 2022-08-31 12:37 | XMS_ITS | Encounter Summary ---
:1995 Author Organization [facility] Address [address] [place] [address] Care Team Providers Name Role Phone Belkys Marshall APRN C.NJuliaPJulia, M.S. Primary Care Provider +1- [phone] Reason for Visit Reason Onset Date Comments Outpatient COVID-19 Testing 10/14/2020 Encounter Details Date Type Department Care Team Description 10/14/2020 External Outreach Department of Nichelle Kim Infection Upper Medicine, [place] Respiratory (Primary Clinic, in [place], [address] [place] [address] Dx) [place], [place] [address] [facility] [address] [place], [place] [phone] [address] (Work) [phone] Social History Tobacco Use Types Packs/Day Years [...] as of this encounter Progress Notes Anna Multani, R.N. - 10/14/2020 3:21 PM CST Encounter created for the drive-through COVID-19 testing. HOUSE RECORD CLERK documented in this encounter Plan of Treatment Not on filedocumented as of this encounter Procedures Procedure Name Priority Date/Time Associated Diagnosis Comme nts SARS CORONAVIRUS-2 Routine 10/14/2020 3:29 PM Infection Upper Results for this RNA, V WAREHOUSE RECORD CLERK Respiratory procedure are i n the results section. documented in this encounter Results SARS Coronavirus-2 RNA, V Symptomatic (10/14/2020 3:29 PM WAREHOUSE RECORD CLERK) [facility] Method Time Signature SARS-CoV-2 Swab, 10/15/2020 ECLR Specimen Nasopharynx 4:35 PM WAREHOUSE RECORD CLERK Source SARS CoV-2 Undetected Undetected 10/15/2020 ECLR RNA, TMA 4:35 PM WAREHOUSE RECORD CLERK Comment: SARS-CoV-2 RNA absent. This result does not rule out COVID-19 in the patient, as the sensitivity of the test depends o n the timing of the specimen collection and the quality of the specim en. Result should be correlated with patient's history and clinical presentat ion. ----ADDITIONAL INFORMATION---- This test is performed using the Aptima SARS-CoV-2 assay ([employer] which has received Emergency Use Authori zation (EUA) by the U.S. Food and Drug Administration. Fact sheets for this Emergency Use Autho rization (EUA) assay can be found at the following links: For Healthcare Providers: https://www.Kerlink a.gov/media/493668/download For Patients: https://www.fda.gov/media/ 704245/download Specimen Anatomical Collection Method Collection Time Receive d Time (Source) Location / / Volume Laterality Varies 10/14/2020 3:29 PM 0 9:59 (Nasopharynx) WAREHOUSE RECORD CLERK PM WAREHOUSE RECORD CLERK Marlon Garcia P.A.-C. LAB MICROBIOLOGY - GENERAL O RDERABLES Performing Organization Address City/State/ZIP Code Phon e Number [facility]- [address] [place] [phone] [facility] [place] [place] [address] System in [address] documented in this encounter Visit Diagnoses Diagnosis Infection Upper Respiratory - Primary documented in this encounter Additional Health Concerns Infection Onset Date Last Indicated Resolved Time COVID19 Pending 10/14/2020 10/14/2020 10/15/2020 4:36 PM WAREHOUSE RECORD CLERK documented as of this encounter Care Teams Rn Wound Care Relationship Specialty Start Date End Date Belkys Marshall, KARL, C.N.P., M.S. PCP - General Family Medicine 11/16/[address] [place] [address] documented as of this encounter
--- OUTSIDE RECORDS SUMMARY | 2022-08-31 12:37 | XMS_ITS | Encounter Summary ---
:1995 Author Organization [facility] Address [address] [place] [address] Care Team Providers Name Role Phone Belkys Marshall APRN, C.N.P., M.S. Primary Care Provider +1- [phone] Reason for Referral Outpatient (Routine) - Closed Specialty Diagnoses / Procedures Referred By Contact Refer red To Contact Diagnoses Crohn's Disease (HCC) [facility] Procedures US Gallbladder M.B.B.S. [address] [place] [phone] Referral ID Status Reason Start Date Expiration Date Visits Requ ested Visits Authorized [id number] Closed 05/03/2020 05/03/2021 1 1 Reason for Visit Outpatient (Routine) - Closed Specialty Diagnoses / Procedures Referred By Contact Refer red To Contact Diagnoses Crohn's Disease (HCC) [facility] Procedures US Gallbladder M.B.B.S. [address] [place] [phone] Referral ID Status Reason Start Date Expiration Date Visits Requ ested Visits Authorized [id number] Closed 05/03/2020 05/03/2021 1 1 Encounter Details Date Type Department Care Team Description 08/30/2020 Hospital Encounter Department of Lucinda, Crohn' s Disease (HCC) Radiology, Bryson Prescott, in [facility]S. [place], [place] [address] [place] [phone] Social History Tobacco Use Types Packs/Day Years [...] End Date albuterol inhaler Inhale 1-2 puffs 1 Inhaler 1 07/29/2020 every 4 (four) hours as needed for wheezing or shortness of breath. mercaptopurine Take 50 mg by mouth 0 1 11/14/2019 (PURINETHOL) 50 mg tablet daily. Take on an empty stomach. norethindrone (Jemima) Take 1 tablet (0.35 84 tablet 4 02/01/2021 0.35 mg tablet mg total) by mouth daily. norethindrone (MICRONOR) Take 0.35 mg by 0 201902/01/2021 0.35 mg tablet mouth. nortriptyline (PAMELOR) Take 1 capsule (25 90 capsule 1 05/0 02/202002/01/2021 25 mg capsuleIndications: mg total) by mouth Nausea at bedtime. ondansetron ODT Take 1 tablet (4 mg 30 tablet 0 07/29/2020 01/30/2022 (ZOFRAN-ODT) 4 mg total) by mouth disintegrating every 8 (eight) tabletIndications: hours as needed for Colitis Crohn's (HCC) nausea or vomiting. ustekinumab (Stelara) 90 Inject 1 mL (90 mg 2 mL 0 02/202011/15/2020 mg/mL total) under the injectionIndications: skin every 8 Crohn's Disease (HCC) (eight) weeks. documented as of this encounter Plan of Treatment Not on filedocumented as of this encounter Procedures Procedure Name Priority Date/Time Associated Comments Diagnosis US GALLBLADDER AND RAD - Routine 08/30/2020 12:16 Crohn's Disease R esults for this OR BILIARY DUCTS (most inpatients PM CDT (HCC) procedu re are in and all the results outpatients) section. documented in this encounter Results US Gallbladder and or Biliary Ducts (08/30/2020 12:16 PM CDT) Anatomical Region Laterality Modality Abdomen, Ultrasound RST LOS, Ultrasound ARZ LOS, Ultrasound FLA N/A Ultrasound LOS Specimen (Source) Anatomical Collection Method Collection Time Re ceived Time Location / / Volume Laterality 08/30/2020 12:19 PM CDT Impressions 08/30/2020 12:28 PM CDT Gallbladder polyps now measuring slightly more prominent than on prior exam. Narrative 08/30/2020 12:28 PM CDT EXAM: US GALLBLADDER AND OR BILIARY DUCTS COMPARISON: 08/28/19 FINDINGS: Gallbladder: 2 gallbladder polyps measur ing maximally 4mm in size each compared to 3mm previously. No vascularity in eit her polyp is appreciated. No gallstones. No wall thickening or pericholecystic fl uid. ??Negative sonographic Sosa sign. Intrahepatic ducts: Not dilated. Common duct: Not dilated. Aorta: Normal caliber. Procedure Note Elizabet Heller M.D. - 08/30/2020Formatt ing of this note might be different from the original. EXAM: US GALLBLADDER AND OR BILIARY DUCT S COMPARISON: 08/28/19 FINDINGS: Gallbladder: 2 gallbladder polyps measur ing maximally 4mm in size each compared to 3mm previously. No vascularity in eit her polyp is appreciated. No gallstones. No wall thickening or pericholecystic fl uid. Negative sonographic Sosa sign. Intrahepatic ducts: Not dilated. Common duct: Not dilated. Aorta: Normal caliber. IMPRESSION: Gallbladder polyps now measuring slightl y more prominent than on prior exam. Juan Jama [employer] US PROCEDURES documented in this encounter Visit Diagnoses Diagnosis Crohn's Disease (HCC) documented in this encounter Care Teams Hourly Manager Relationship Specialty Start Date End Date Belkys Marshall, KARL, C.N.P., M.S. PCP - General Family Medicine 11/16/[address] [place] [address] documented as of this encounter
--- OUTSIDE RECORDS SUMMARY | 2022-08-31 12:37 | XMS_ITS | Encounter Summary ---
:1995 Author Organization [facility] Address [address] [place] [address] Care Team Providers Name Role Phone Belkys Marshall APRN, C.N.Mame., M.S. Primary Care Provider +1- [phone] Encounter Details Date Type Department Care Team Description 11/02/2020 Admin Visit Department of Family Medicine, [facility] [place] in [place], [place] [address] [phone] [facility] [phone] Social History Tobacco Use Types Packs/Day Years [...] Date Last Indicated Resolved Time COVID19 Pending 11/01/2020 11/02/2020 11/03/2020 12:[address] DESIGN ENGINEER documented as of this encounter Care Teams Wax Blender Relationship Specialty Start Date End Date Belkys Marshall, KARL, C.N.P., M.S. PCP - General Family Medicine 11/16/19 [address] [place] [address] documented as of this encounter
--- OUTSIDE RECORDS SUMMARY | 2022-08-31 12:37 | XMS_ITS | Encounter Summary ---
:1995 Author Organization [facility] Address [address] [place] [address] Care Team Providers Name Role Phone Belkys Marshall APRN, C.NTawanna, [facility] Primary Care Provider +1- [phone] Encounter Details Date Type Department Care Team Description 07/20/2020 Clinical Communication [facility], [facility] KARL CJuliaNTawanna, [facility], [place], [place] [address] [place] [address] [place] [phone] Social History Tobacco Use Types Packs/Day Years [...] 1 to 4 times per year 11/11 yarsani services? Do you belong to any clubs [...] this encounter Miscellaneous Notes Telephone Encounter - Sindy Spear - 07/20/2020 2:28 PM CDT ([facility] and [facility] locations only: If the patient is not having symptoms and is requesting COVID-19 Nasal Swab testing only, use the process listed in the [place] [address] Patient Requesting COVID PCR Test OTG COVID-19 [place] Patient Requesting COVID PCR Test). In the past 30 days have you had a swab for COVID that tested positive? no Route reply to: Scheduling Contact Number: documented in this encounter Plan of Treatment Not on filedocumented as of this encounter Visit Diagnoses Not on filedocumented in this encounter Care Teams Heart Nurse Relationship Specialty Start Date End Date Belkys Marshall APRN, C.N.P., M.S. PCP - General Family Medicine 11/16/[address] [place] [phone] documented as of this encounter
--- OUTSIDE RECORDS SUMMARY | 2022-08-31 12:37 | XMS_ITS | Encounter Summary ---
:1995 Author Organization [facility] Address [address] [place] [address] Care Team Providers Name Role Phone Belkys Marshall APRN C.NJuliaPJulia, M.S. Primary Care Provider +1- [phone] Reason for Visit Reason Onset Date Comments Outpatient COVID-19 Testing 10/12/2020 Encounter Details Date Type Department Care Team Description 10/12/2020 External Outreach Department of Nichelle Kim Infection Upper Medicine, [place] Respiratory (Primary Clinic, in [place], [address] [place] [address] Dx) [place], [place] [address] [facility] [address] [place], [place] [phone] (Work) [phone] Social History Tobacco Use Types Packs/Day Years [...] documented as of this encounter Progress Notes Avni Clifton, R.N. - 10/12/2020 12:35 PM CST Encounter created for the drive-through COVID-19 testing. NG POOL SUPERVISOR documented in this encounter Plan of Treatment Not on filedocumented as of this encounter Procedures Procedure Name Priority Date/Time Associated Diagnosis Comme nts SARS CORONAVIRUS-2 Routine 10/12/2020 12:46 PM Infection Upper Results for this RNA, V TYPING POOL SUPERVISOR Respiratory procedure are i n the results section. documented in this encounter Results SARS Coronavirus-2 RNA, V Symptomatic (10/12/2020 12:46 PM TYPING POOL SUPERVISOR) [facility] Method Time Signature SARS-CoV-2 Swab, 10/13/2020 ECLR Specimen Nasopharynx 12:49 PM Source TYPING POOL SUPERVISOR SARS CoV-2 Undetected Undetected 10/13/2020 ECLR RNA, TMA 12:49 PM TYPING POOL SUPERVISOR Comment: SARS-CoV-2 RNA absent. This result does not rule out COVID-19 in the patient, as the sensitivity of the test depends o n the timing of the specimen collection and the quality of the specim en. Result should be correlated with patient's history and clinical presentat ion. ----ADDITIONAL INFORMATION---- This test is performed using the Aptima SARS-CoV-2 assay ([employer] which has received Emergency Use Authori zation (EUA) by the U.S. Food and Drug Administration. Fact sheets for this Emergency Use Autho rization (EUA) assay can be found at the following links: For Healthcare Providers: https://www.SureBooks a.gov/media/929137/download For Patients: https://www.fda.gov/media/ 881258/download Specimen Anatomical Collection Method Collection Time Receive d Time (Source) Location / / Volume Laterality Varies 10/12/2020 12:46 10/12/2020 9:53 (Nasopharynx) PM TYPING POOL SUPERVISOR PM TYPING POOL SUPERVISOR Marlon Garcia P.A.-C. LAB MICROBIOLOGY - GENERAL O HEATHER Performing Organization Address City/State/ZIP Code Phon e Number [facility] [address] [place] [phone] [facility] [place] [address] System in [address] documented in this encounter Visit Diagnoses Diagnosis Infection Upper Respiratory - Primary documented in this encounter Additional Health Concerns Infection Onset Date Last Indicated Resolved Time COVID19 Pending 10/12/2020 10/12/2020 10/13/2020 12:50 PM TYPING POOL SUPERVISOR documented as of this encounter Care Teams Full Stack Software Engineer Relationship Specialty Start Date End Date Belkys Marshall, KARL, C.N.P., M.S. PCP - General Family Medicine 11/16/19 [address] [place] [address] documented as of this encounter
--- OUTSIDE RECORDS SUMMARY | 2022-08-31 12:37 | XMS_ITS | Encounter Summary ---
:1995 Author Organization [facility] Address [address] [place] [address] Care Team Providers Name Role Phone Belkys Marshall APRN C.N.P., M.S. Primary Care Provider +1- [phone] Encounter Details Date Type Department Care Team Description 10/03/2020 Specialty Pharmacy [facility] YumikoAlan [address] Varsha Jansen Jr., [place] [address] [address] [place] [address] [place] [phone] (Wo rk) Social History Tobacco Use Types [...] this encounter Miscellaneous Notes Telephone Encounter - Alan Vu Jr., R.Ph. - 10/03/2020 9:54 AM CIRCULAR HEAD SAW OPERATOR SUBJECTIVE REASON FOR VISIT Specialty pharmacy reassessment of patient's medication knowledge, adherence, and side effects usingpatient reported answers to patient portal driven questionnaire(s). HISTORY OF PRESENT ILLNESS Ms. [place] Mcdonald is a 25 y.o. female, who is followed by the specialty pharmacy service for Stelara (ustekinumab) . (Indication:crohn's disease) Patient questionnaire(s) submitted by patient via patient portal (Please refer to the below two questionnaires on the [facility] patient chart, encounter department: [facility] dated: 09/25/2020) 1) Specialty Pharmacy Medication Adherence Questionnaire 2) [id number] questionnaire OBJECTIVE Lab Results Component Value Date CREATININE 1.00 05/23/2020 EGFR 78 05/23/2020 EGFRAFRAMER 90 05/23/2020 ASSESSMENT / PLAN 1. Medication Knowledge and Adherence In reference to the subjective patient questionnaire above and reviewing refill history in the [facility] record. The patient/caregiver reports appropriate medication knowledge. No adherence issues identified. 2. Medication Side effects/Adverse Events In reference to the 'Specialty Pharmacy Medication Adherence Questionnaire': The patient reports no medication side effects requiring attention. No reported adverse drug reactions, allergic reactions, overdoses or medication errors. 3. Effectiveness Patient reports medication effectiveness to be: 'excellent'. Also, please refer to provider assessment/plan within [facility] on the following date 04/14/2020. 4. Quality of Life From Rpjira21 questionnaire information: Patient currently rating quality of [...] risk by MCSP definition. Follow-up: 6 months Alan Vu Jr., R.Ph. ULAR HEAD SAW OPERATOR documented in this encounter Plan of Treatment Not on filedocumented as of this encounter Visit Diagnoses Not on filedocumented in this encounter Care Teams Cardiovascular Tech Relationship Specialty Start Date End Date Belkys Marshall APRN, C.N.P., M.S. PCP - General Family Medicine 11/16/19 [address] [place] [address] documented as of this encounter
--- OUTSIDE RECORDS SUMMARY | 2022-08-31 12:37 | XMS_ITS | Encounter Summary ---
:1995 Author Organization [facility] Address [address] [place] [address] Care Team Providers Name Role Phone Belkys Marshall APRN, C.NVira., M.S. Primary Care Provider +1- [phone] Reason for Referral MRI/CAT/PET Scan (Routine) - Closed Specialty Diagnoses / Procedures Referred By Contact Refer red To Contact Radiology Diagnoses Crohn's Disease (HCC) Polyp Gallbladder [facility] Procedures MR Abdomen MRCP without and with IV Contrast M.B.B.S. [address] [place] [phone] Referral ID Status Reason Start Date Expiration Date Visits Requ ested Visits Authorized [id number] Closed 09/02/2020 09/02/2021 1 1 TENANCE CRAFTSMAN Reason for Visit MRI/CAT/PET Scan (Routine) - Closed Specialty Diagnoses / Procedures Referred By Contact Refer red To Contact Radiology Diagnoses Crohn's Disease (HCC) Polyp Gallbladder [facility] Procedures MR Abdomen MRCP without and with IV Contrast M.B.B.S. [address] [place] [address] Referral ID Status Reason Start Date Expiration Date Visits Requ ested Visits Authorized [id number] Closed 09/02/2020 09/02/2021 1 1 Encounter Details Date Type Department Care Team Description 09/21/2020 Hospital Encounter Department of Lucinda, Crohn' s Disease (HCC); Radiology, Josh Martinez, [facility], in M.B.B.S. [place], [place] [address] [place] [phone] Social History Tobacco Use Types Packs/Day Years [...] or relatives? How often do you attend congregation or 1 to 4 times per year 11/11 baptism services? Do you belong to any clubs or Yes 11/23/2021 organizations such as congregation groups, unions, fraternal or athletic groups, or [...] of breath. mercaptopurine TAKE 1 TABLET BY 180 tablet 0 09/14/202005/12 (PURINETHOL) 50 mg tablet MOUTH DAILY ON AN EMPTY STOMACH norethindrone (Jemima) Take 1 tablet (0.35 84 [...] Procedure Name Priority Date/Time Associated Comments Diagnosis MR ABDOMEN MRCP RAD - Routine 09/21/2020 2:06 Crohn's Disease Resul ts for this WITHOUT AND WITH (most inpatients PM MAINTENANCE CRAFTSMAN (HCC) procedure are in IV CONTRAST and all Polyp Gallbladder the result s outpatients) section. documented in this encounter Results MR Abdomen MRCP without and with IV Contrast (09/21/2020 2:06 PM MAINTENANCE CRAFTSMAN) Anatomical Region Laterality Modality Abdomen, Abdominal RST LOS, Abdominal ARZ LOS, N/A Magnetic Resonance Abdominal FLA LOS Specimen (Source) Anatomical Collection Method Collection Time Re ceived Time Location / / Volume Laterality 09/21/2020 2:54 PM MAINTENANCE CRAFTSMAN Impressions 09/21/2020 3:30 PM MAINTENANCE CRAFTSMAN 1. No features to suggest primary sclerosing cholangitis. 2. Tiny gallbladder polyps are better ap preciated on prior ultrasound. Narrative 09/21/2020 3:30 PM MAINTENANCE CRAFTSMAN EXAM: ??MR ABDOMEN MRCP WITHOUT AND WITH IV CONTRAST 3D maximum intensity projections/volume renderings were created on an independent workstation as ordered by [facility] treating provider and reviewed by the radiologist for biliary and pancreatic d uct visualization. COMPARISON: ?Ultrasound of the abdom en 08/30/2020, MR enterography 01/06/[address] abdomen and pelvis 02/27/2017. FINDINGS: ??Noncirrhotic liver morpholog y. No focal hepatic lesion. Patent portal and hepatic veins. No significant intra or extra hepatic biliary ductal dilation or irregularity to suggest PSC. Tiny gal lbladder polyps are better appreciated on ultrasound 08/30/2020 (series 6, imag e 23 and series 11, image 26). Sludge in the gallbladder. No wall thickening or p ericholecystic fluid. No lymphadenopathy. Normal spleen size. The kidneys, adrenal glands and pancreas are negative. Procedure Note Bhupendra [place] M.D. - 09/21/2020 EXAM: MR ABDOMEN MRCP WITHOUT AND WITH I V CONTRAST 3D maximum intensity projections/volume renderings were created on an independent workstation as ordered by [facility] treating provider and reviewed by the radiologist for biliary and pancreatic d uct visualization. COMPARISON: Ultrasound of the abdomen , MR enterography 01/06/[address] abdomen and pelvis 02/27/2017. FINDINGS: Noncirrhotic liver morphology. No focal hepatic lesion. Patent portal and hepatic veins. No significant intra or extra hepatic biliary ductal dilation or irregularity to suggest PSC. Tiny gal lbladder polyps are better appreciated on ultrasound 08/30/2020 (series 6, imag e 23 and series 11, image 26). Sludge in the gallbladder. No wall thickening or p ericholecystic fluid. No lymphadenopathy. Normal spleen size. The kidneys, adrenal glands and pancreas are negative. IMPRESSION: 1. No features to suggest primary sclero sing cholangitis. 2. Tiny gallbladder polyps are better ap preciated on prior ultrasound. Juan Jama [facility] MRI PROCEDURES documented in this encounter Visit Diagnoses Diagnosis Crohn's Disease (HCC) Polyp Gallbladder documented in this encounter Administered Medications Inactive Administered Medications - up to 3 most recent administrations Medication Order MAR Action Action Date Dose Rate Site gadobutrol injection 0.01-30 mL Given 09/21/2020 2:06 PM MAINTENANCE CRAFTSMAN 6 m L (GADAVIST) 0.01-30 mL, intravenous, Once in imaging, contrast, Starting on Sat09/21/20 at 1247, For 1 dose, Imaging Protocol Orders, Dose per Radiant Medication Guidelines documented in this encounter Care Teams Diesel Engine I Pipe Fitter Relationship Specialty Start Date End Date Belkys Marshall, KARL, C.N.P., M.S. PCP - General Family Medicine 11/16/19 [address] [place] [address] documented as of this encounter
--- OUTSIDE RECORDS SUMMARY | 2022-08-31 12:37 | XMS_ITS | Encounter Summary ---
:1995 Author Organization [facility] Address [address] [place] [address] Care Team Providers Name Role Phone Belkys Marshall APRN C.N.P., M.S. Primary Care Provider +1- [phone] Reason for Visit Reason Comments COVID Nurse Line Encounter Details Date Type Department Care Team Description 10/16/2020 Clinical Communication Division of Evgeny Patel Nurse Line [facility] A, R.N. [facility] [address] [place] [address] in [place], [place] [address] [place] [address] [place], [place] (Work) [phone] Social History Tobacco Use Types Packs/Day Years [...] this encounter Miscellaneous Notes Telephone Encounter - Evgeny Patel, RJuliaN. - 10/16/2020 2:46 PM CST COVID-19 Nurse Line Screening ASSESSMENT COVID 19 Screening Have you had close contact with a person who has a LABORATORY CONFIRMED case of COVID-19 in the past14 days?: Yes - Continue screening. Over the last 48 hours have you had any of the following symptoms that are not related to a exsitingcondition?: New sore throat, New headache Do you have any urgent symptoms?: None (Continue Screening) Has the patient had COVID19 diagnosed with a PCR test in the last 45 days? : No (End Screening- Patient Meets Criteria for Testing PLAN Endpoint recommendation: [facility] Personnel directed to contact Employee/Occupational Health using this form if Within the [place] [employer]: [email or web address] or Outside the [facility]: Go to www.[email or web address] [email or web address].[email or web address]. Click on Employee Occupational Health Online Services and then click the COVID-19 Red Box. Review video How to Safely Isolate During COVID-19 https://www.[facility].org/patient-education?VID=VID-13510033 , Screening positive, testingindicated, advised to be swabbed for COVID-19, sent to [facility] located at [address] You must call [phone] for an appointment time. Testing hours are Daily 9 am to 7 pm. When you arrive at the testing site: Remain in your vehicle and check-in by phone using the same appointmentline number. and Please avoid using public transportation per CDC recommendation. If you do not havepersonal transportation please self-quarantine until a personal transportation option is available. and Provided instruction to quarantine for 14 days from the last contact exposure to a confirmed COVID-19 case and testing is recommended. The best time to test is 5-7 days after last contact with an infected individual in order to have the best chance of detecting infection. If you are unsure of your last contact, or would like testing now, we can perform testing now. Even if your test is negative, you should continue to follow official public health quarantine recommendations. Contact your primary care team with any new symptoms. Care Points provided: STANDARD PRECAUTIONS FOR ALL PATIENTS: Wash hands often with soap and water for at least 20 seconds, especially after blowing your nose, coughing, sneezing, or having been in a public place. If soap and water aren't available, use a hand windsmith that contains at least 60% alcohol. Avoid [...] and new symptoms develop please contact your provider if it has been greaterthan 72 hours since you were tested. Educational Resource: https://www.cdc.gov/coronavirus/2019-ncov/ uqdvwwv-zqbcjti-ghau/index.html Education: Patient/caregiver able to teach back Patient agreeable to plan of care: Yes The following references were used: [facility] novel coronavirus (COVID- 19) resources Nursing judgement ETING SERVICES MANAGER documented in this encounter Plan of Treatment Not on filedocumented as of this encounter Visit Diagnoses Not on filedocumented in this encounter Care Teams Turning And Beading Machine Operator Relationship Specialty Start Date End Date Belkys Marshall APRN, C.N.P., M.S. PCP - General Family Medicine 11/16/19 [address] [place] [address] documented as of this encounter
--- OUTSIDE RECORDS SUMMARY | 2022-08-31 12:37 | XMS_ITS | Encounter Summary ---
:1995 Author Organization [facility] Address [address] [place] [address] Care Team Providers Name Role Phone Belkys Marshall APRN, C.N.P., M.S. Primary Care Provider +1- [phone] Reason for Referral Outpatient (Routine) - Closed Specialty Diagnoses / Procedures Referred By Contact Refer red To Contact Belkys Marshall APRN, C.N.P., R [facility] Yelena M.SJulia [address] [place] [phone] Referral ID Status Reason Start Date Expiration Date Visits Requ ested Visits Authorized [id number] Closed 07/29/2020 07/29/2021 1 1 Reason for Visit Reason Comments Annual Exam Appointment Request (Routine) - Closed Specialty Diagnoses / Procedures Referred By Contact Refer gadiel To Contact Family Medicine Referral ID Status Reason Start Date Expiration Date Visits Requ ested Visits Authorized [id number] Closed 07/20/2020 07/20/2021 1 1 Encounter Details Date Type Department Care Team Description 07/29/2020 Comprehensive Visit Department of Belkys Marshall [facility] Adult (Primary Dx); Family MedicineStephen APRN, Fatigue; [facility] Hipolito Galloway. Colitis Crohn's (HCC); [place] [address] Polyp Gallbladder; [place], [place] Thyroiditis Hare shimoto's; [place] [address] Asthma Mild Intermittent (HCC); [address] [phone] Darío is Oral [place] (Work) [place], [place] [phone] [phone] (Fax) [phone] Social History Tobacco Use Types Packs/Day Years [...] Sign Reading Time Taken Comments Blood Pressure 104/71 07/29/2020 10:03 AM CDT Pulse - - Temperature - - Respiratory Rate - - Oxygen Saturation - - Inhaled Oxygen Concentration - - Weight 64 kg (141 lb 1.5 oz) 07/29/2020 10:03 AM CDT Height 166.7 cm (5' 5.63) 07/29/2020 10:03 AM CDT Body Mass Index 23.03 07/29/2020 10:03 AM CDT documented in this encounter Patient Instructions Patient InstructionsBelkys Marshall APRN C.N.P., M.S. - 07/29/2020 10:00 AM CDT Nurse visit in Nov 2020 for PCV 23 vaccine. 7-14 day course of fluconazole for oral yeast. Let me know if not better after treatment. Limit Zofran use while on. Check thyroid. I will be in touch after speaking to GI about consideration of stimulant to counter fatigue. In the mean time, increase sleeping hours to 8-9 if possible to see if this helps. documented in this encounter Progress Notes Belkys Marshall APRN, C.N.P., M.S. - 07/29/2020 10:00 AM CDT SUBJECTIVE CHIEF COMPLAINT / REASON FOR VISIT Laurel Mcdonald is a 25 y.o. female, patient of Belkys Marshall APRN, C.N.P., M.S. who presents for evaluation of Annual Exam. HISTORY OF PRESENT ILLNESS Diagnosis Overview 1. Asthma Mild Intermittent (HCC) Diagnosed 6th grade via testing. No hospitalizations. No oral prednisone bursts. Has been off medication for many years without symptoms. Used albuterol once in the last few months prior to a run. Currently asymptomatic. 2. Colitis Crohn's (HCC) Followed by GI. Most [...] Humira and subsequently transitioned to Stelara 10/2018. 3. Thyroiditis Amador's Endocrinology consult Sep 2019. Thyroid ultrasound demonstrated goiter and findings consistent withthe elevated TPO antibody/Amador's. Upon recheck labs normalized. Family history of both hyper and hypothyroidism in a paternal aunt and paternal grandmother respectively. Lab Results Component Value Date TSH 1.7 04/14/2020 [id number] 107 09/28/2019 4. Maintenance Health Adult - Primary Immunizations: Up-to-date. Tobacco/Alcohol/Illicit drugs: Refer to social history. -Lung cancer screening: Lifetime non-smoker. Diet/Exercise: General diet - plans to try whole 30 to see if helps Crohn's. Was running frequently up until a few months ago due to fatigue. BMI: Body mass index is 23.03 kg/m??. BP: 104/71 Glucose: Normal, Aug 2019 ([place]). Lipid panel: Normal, Sep 2015 ([place]). Mammogram: No fam hx. Age 39. Pap smear: No hx of abnormal. Last done Sep 2018 (outside facility). Due 2020. Colonoscopy/Cologuard: Crohn's, see overview. HIV: negative, 2017. Bone Density: Age 64 or sooner if risk factors. 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 Menarche 12. Cycles regular naturally with cramping. Placed on progesterone only control and menses now sporadic. Has migraines with aura. 5. Polyp Gallbladder Followed by GI. Incidental finding on abdominal US 2018. 1 year surveillance US scheduled for Aug 2020. 6. Fatigue Reports longstanding struggle with fatigue in setting of Crohn's. Has been particularly bad over the last several months and interfering with daily functioning. 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 She will struggle to sleep during the day and on occasion use Benadryl. On days she does not work, she flips back to a day schedule. Will go to bed around 11 pm and set an alarm for 7 am. Sleeps fairly well those nights. Regardless, wakes up feeling tired. Has tried various things such as changing diet, altering caffeine use, and exercise with benefit. Her mother has Lupus and is on long-acting stimulant to combat fatigue with good results. She wonders if this would be an option. 7. Candidiasis Oral Reports a couple week history of strong foul breath, cotton mouth, and new white coating on her tongue. Denies loss of taste, sore throat, or trouble swallowing. The following portions of the patient's history were reviewed and updated as appropriate: allergies,current medications, family history, medical history, social history, surgical history and problem list. REVIEW OF SYSTEMS Constitutional: Positive for fatigue. Skin: Positive for change in mole or skin spot and nipple discharge. Cardiovascular: Positive for swelling in the legs or feet. Gastrointestinal: Positive for abdominal (belly) pain or cramping and nausea. Genitourinary: Positive for menses change or abnormal. Hematologic: Positive for abnormal lumps or bumps. The following systems were negative: Eyes, ENT, Respiratory, Musculoskeletal, Neuro, Psych OBJECTIVE PHYSICAL EXAM Physical Exam GENERAL APPEARANCE: Well developed, well-nourished and in no acute distress. HEAD: Normocephalic. ENT: External auditory canals and TM clear, hearing grossly intact. Whitish coating on tongue, not present on buccal mucosa or oropharynx. EYES: Conjunctivae non-injected; sclerae anicteric; extraocular movements intact; pupils equal, round, and reactive to light. Vision grossly intact. NECK: Supple, non-tender without lymphadenopathy, masses or thyromegaly. LUNGS: Clear without rales, rhonchi, wheezing or diminished breath sounds. HEART: Regular rhythm with no murmurs/clicks, S3, S4. ABDOMEN: Soft, nontender without guarding, rebound, masses, or hepatosplenomegaly. NEUROLOGIC: Alert and oriented. Cranial nerves 2-12 grossly intact. PSYCHIATRIC: Grossly intact. Appears fatigued. Vitals: 07/29/20 1003 BP: 104/71 BP Location: Left arm Patient Position: Sitting Cuff Size: Regular PainSc: 0-No pain ASSESSMENT / PLAN #1 Maintenance Health Adult Assessment & Plan: HR, BP, BMI, immunizations, and tobacco use status reviewed. Indications for screening tests reviewed and appropriate tests offered based on age and patient- provided history. Discussed the importance of well-balanced diet, daily physical activity, healthy weight, avoidance of tobacco, and alcohol use in moderation. -Pap smear due next year. -Return in 4 months for PCV23 #2 Fatigue Assessment & Plan: Acknowledge there is not an ideal fix for this given symptoms likely secondary to Crohn's. Did review that some individuals require on average 8-9.5 hours of sleep at night and she is not getting this.So step one would be to increase sleep time as she is using alarm to wake-up consistently. She is agreeable to this. Discussed consideration of short-acting sleep aid on days she is working night-shiftso she does not get behind on sleep and she is open to this. With regard to use of stimulant, this is not an unreasonable consideration, but one I do not feel comfortable implementing without input from GI in case there are better alternatives. Discussed that I would not be comfortable prescribing both a sleep aid and stimulant which she understands. In this case, she would prefer trial of stimulant if GI thinks this is appropriate. I will reach out to her GI provider for input and follow-up with Ms. Mcdonald via portal. #3 Colitis Crohn's (HCC) Assessment & Plan: Continues to be followed by GI. Orders: - ondansetron ODT (ZOFRAN-ODT) 4 mg disintegrating tablet; Take 1 tablet (4 mg total) by mouth as needed for nausea or vomiting., Starting Sat07/29/2020, Normal #4 Polyp Gallbladder Assessment & Plan: Followed by GI. US in August. #5 Thyroiditis Amador's Assessment & Plan: Re-check thyroid labs due to worsening in fatigue. #6 Asthma Mild Intermittent (HCC) Assessment & Plan: Stable. Continue as needed albuterol. #7 Candidiasis Oral Assessment & Plan: Suspect this is oral ita. Reviewed treatment options and for convenience will treat with oral diflucan for 7 days. May extend to 14 days if not resolved after 7. Follow-up if persists despite 14 day course. Other orders - albuterol inhaler; Inhale 1-2 puffs every 4 (four) hours as needed for wheezing or shortness of breath., Starting Sat07/29/2020, Normal - fluconazole (DIFLUCAN) 200 mg tablet; Take 1 tablet (200 mg total) by mouth daily for 7 days. Extend to 14 days if not resolved after 7, Starting Sat07/29/2020, Until Sat08/05/2020, Normal - Thyroid Function [place]; Future; Expected date: 07/29/2020 - Primary Care nurse visit (clinic) - [facility]; Future; Expected date: 11/28/2020 Signs and symptoms warranting further evaluation were discussed. All questions were answered to the best of my ability. Patient was in agreement with the plan. documented in this encounter Miscellaneous Notes Assessment & Plan Note - Belkys Marshall APRN, C.N.Mame., M.S. - 07/29/2020 11:29 AM CDTAssociated Problem(s): Candidiasis Oral (Resolved 02/01/2021) Suspect this is oral ita. Reviewed treatment options and for convenience will treat with oral diflucan for 7 days. May extend to 14 days if not resolved after 7. Follow-up if persists despite 14 day course. Assessment & Plan Note - Belkys Marshall APRN, C.NVira., M.S. - 07/29/2020 11:25 AM CDTAssociated Problem(s): Fatigue Acknowledge there is not an ideal fix for this given symptoms likely secondary to Crohn's. Did review that some individuals require on average 8-9.5 hours of sleep at night and she is not getting this.So step one would be to increase sleep time as she is using alarm to wake-up consistently. She is agreeable to this. Discussed consideration of short-acting sleep aid on days she is working night-shiftso she does not get behind on sleep and she is open to this. With regard to use of stimulant, this is not an unreasonable consideration, but one I do not feel comfortable implementing without input from GI in case there are better alternatives. Discussed that I would not be comfortable prescribing both a sleep aid and stimulant which she understands. In this case, she would prefer trial of stimulant if GI thinks this is appropriate. I will reach out to her GI provider for input and follow-up with Ms. Mcdonald via portal. Assessment & Plan Note - Belkys Marshall APRN, C.N.P., M.S. - 07/29/2020 11:22 AM CDTAssociated Problem(s): Maintenance Health Adult HR, BP, BMI, immunizations, and tobacco use status reviewed. Indications for screening tests reviewed and appropriate tests offered based on age and patient- provided history. Discussed the importance of well-balanced diet, daily physical activity, healthy weight, avoidance of tobacco, and alcohol use in moderation. -Pap smear due next year. -Return in 4 months for PCV23 Assessment & Plan Note - Belkys Marshall APRN, C.N.Mame., M.S. - 07/29/2020 11:16 AM CDTAssociated Problem(s): Thyroiditis Amador's Re-check thyroid labs due to worsening in fatigue. Assessment & Plan Note - Belkys Marshall APRN, C.N.P., M.S. - 07/29/2020 11:16 AM CDTAssociated Problem(s): Polyp Gallbladder Followed by JENNIFER. in August. Assessment & Plan Note - Belkys Marshall APRN, C.N.P., M.S. - 07/29/2020 11:15 AM CDTAssociated Problem(s): Colitis Crohn's (HCC) Continues to be followed by GI. Assessment & Plan Note - Belkys Marshall APRN, C.N.P., M.S. - 07/29/2020 11:14 AM CDTAssociated Problem(s): Asthma Mild Intermittent (HCC) Stable. Continue as needed albuterol. documented in this encounter Plan of Treatment Scheduled Referrals Name Type Priority Associated Diagnoses Order S [facility] Primary Care nurse Outpatient Referral Routine Ex pected: visit (clinic) - 11/28/2020 [facility] (Approximat e), Expires: 07/29/2023 documented as of this encounter Results Thyroid Function [place] (07/29/2020 11:08 AM CDT) P athologist Signature TSH, Sensitive 1.8 0.3 - 4.2 07/29/2020 DTL mIU/L 2:43 PM CDT Specimen Anatomical Collection Method Collection Time Receive d Time (Source) Location / / Volume Laterality Blood (Blood, 07/29/2020 11:08 07/29/2020 2:06 Venous) AM CDT PM CDT Celina Sequeira APRN.NVira., M.S. LAB BLOOD ADD-ON Performing Organization Address City/State/ZIP Code Phon e Number [facility] - [address] [place], [place] [address] [facility] [place] [address] Laboratories-[facility] [address] documented in this encounter Visit Diagnoses Diagnosis Maintenance Health Adult - Primary Fatigue Colitis Crohn's (HCC) Polyp Gallbladder Thyroiditis Amaodr's Asthma Mild Intermittent (HCC) Candidiasis Oral documented in this encounter Care Teams Online Merchant Relationship Specialty Start Date End Date Belkys Marshall APRN, C.N.P., M.S. PCP - General Family Medicine 11/16/19 [address] [place] [address] documented as of this encounter
--- OUTSIDE RECORDS SUMMARY | 2022-08-31 12:37 | XMS_ITS | Encounter Summary ---
:1995 Author Organization [facility] Address [address] [place] [address] Care Team Providers Name Role Phone Belkys Marshall APRN, C.N.Mame., M.S. Primary Care Provider +1- [phone] Encounter Details Date Type Department Care Team Description 10/27/2020 Admin Visit Department of Family Medicine, [facility] [place] in [place], [place] [address] [address] [facility] [phone] Social History Tobacco Use Types Packs/Day Years [...] 1 to 4 times per year 11/11 muslim services? Do you belong to any clubs [...] COVID19 Pending 10/27/2020 10/27/2020 10/27/2020 10:07 PM APPLIED ANTHROPOLOGIST documented as of this encounter Care Teams Paper Making Machine Operator Relationship Specialty Start Date End Date Belkys Marshall, KARL, C.N.P., M.S. PCP - General Family Medicine 11/16/19 [address] [place] [address] documented as of this encounter
--- OUTSIDE RECORDS SUMMARY | 2022-08-31 12:37 | XMS_ITS | Encounter Summary ---
:1995 Author Organization [facility] Address [address] [place] [address] Care Team Providers Name Role Phone Belkys Marshall APRN, C.N.P., M.S. Primary Care Provider +1- [phone] Reason for Visit Reason Comments Form Review [place] Encounter Details Date Type Department Care Team Description 09/02/2020 Clinical Communication Department of Belkys Marshall Review ([facility]) Family Medicine, KARL Mitchell, [facility] C.N.P., M.S. [facility], in [address] [place] [address] [address] [phone] [place] (Work) [place], [place] [phone] [phone] (Fax) [phone] Social History Tobacco Use Types Packs/Day Years [...] 1 to 4 times per year 11/11 orthodox services? Do you belong to any [...] this encounter Miscellaneous Notes Telephone Encounter - Mercedes Eisenberg - 09/05/2020 4:41 PM CDT Form was sent to patient via POS message. Telephone Encounter - Belkys Marshall APRN, C.N.P., M.S. - 09/05/2020 9:24 AM CDT Electronic form completed and emailed to [place] Fax. Telephone Encounter - Mercedes Eisenberg - 09/02/2020 2:30 PM CDT HYDRAULIC TECHNICIAN: Laurel Mcdonald (Patient) PHONE NUMBER: [phone] INFO REQUESTED: FMLA due to Crohn's disease INSTRUCTIONS: Return to patient via portal; no auth on file to send to [employer] directly. Requested information emailed to Belkys Marshall for signature/review electronically. documented in this encounter Plan of Treatment Not on filedocumented as of this encounter Visit Diagnoses Not on filedocumented in this encounter Care Teams Design Quality Engineer Relationship Specialty Start Date End Date Belkys Marshall APRN, C.N.P., M.S. PCP - General Family Medicine 11/16/19 [address] [place] [address] documented as of this encounter
--- OUTSIDE RECORDS SUMMARY | 2022-08-31 12:37 | XMS_ITS | Encounter Summary ---
:1995 Author Organization [facility] Address [address] [place] [address] Care Team Providers Name Role Phone Belkys Marshall APRN, C.N.PJulia, M.S. Primary Care Provider +1- [phone] Encounter Details Date Type Department Care Team Description 07/29/2020 Hospital Encounter Department of Belkys Marshall ; Laboratory Medicine KARL Mitchell, Thyroidi tis Amador's and Pathology, C.N.P., M.S. [facility], in [address] [place] [address] [address] [address] [place] [phone] [place], [place] (Work) [phone] Social History Tobacco Use Types Packs/Day [...] needed for wheezing or shortness of breath. fluconazole (DIFLUCAN) Take 1 tablet (200 7 tablet 1 07/2908/05/2020 200 mg tablet mg total) by mouth daily for 7 days. Extend to 14 days if not resolved after 7 mercaptopurine Take 50 mg by mouth 0 [...] Name Priority Date/Time Associated Diagnosis Comme nts THYROID FUNCTION Routine 07/29/2020 11:08 AM Fatigue Results for this CASCADE, S CDT Thyroiditis procedure are i n Amador's the results section. documented in this encounter Results Thyroid Function [place] (07/29/2020 11:08 AM CDT) P athologist Signature TSH, Sensitive 1.8 0.3 - 4.2 07/29/2020 DTL mIU/L 2:43 PM CDT Specimen Anatomical Collection Method Collection Time Receive d Time (Source) Location / / Volume Laterality Blood (Blood, 07/29/2020 11:08 07/29/2020 2:06 Venous) AM CDT PM CDT Layne Sequeira APRNNVria., M.S. LAB BLOOD ADD-ON Performing Organization Address City/State/ZIP Code Phon e Number [facility] - [address] [place], [place] [address] [facility] [place] [address] Laboratories-[facility] [address] [facility] documented in this encounter Visit Diagnoses Diagnosis Fatigue Thyroiditis Amador's documented in this encounter Care Teams Cad Designer Drafter Relationship Specialty Start Date End Date Belkys Marshall APRN, C.N.P., M.S. PCP - General Family Medicine 11/16/[address] [place] [address] documented as of this encounter
--- OUTSIDE RECORDS SUMMARY | 2022-08-31 12:37 | XMS_ITS | Encounter Summary ---
:1995 Author Organization [facility] Address [address] [place] [address] Care Team Providers Name Role Phone Belkys Marshall APRN C.N.P., M.S. Primary Care Provider +1- [phone] Reason for Visit Reason Comments Medication Problem Encounter Details Date Type Department Care Team Description 07/29/2020 Clinical Communication [facility] [address] [employer], Medication Problem Mail Order Pharmacy [facility], [facility] COMMERCIAL Pharm.D., IDALIA R.Ph. [place], [place] [address] [facility] [address] [place], [place] [phone] [address] Social History Tobacco Use Types Packs/Day Years [...] 1 to 4 times per year 11/11 religion services? Do you belong to any clubs [...] this encounter Miscellaneous Notes Telephone Encounter - Sandra Bang, PharmJuliaD., R.Ph. - 07/29/2020 4:15 PM CDT Please route response back to [facility]. We received a script today for ondansetron 4 mg ODT tablets to take as needed. In order to bill thiscorrectly we need a frequency of use. How often can she take this? Typical dosing is every 8 hours. Please advise and send a new prescription as appropriate. Thank you, [facility] - Mail Order documented in this encounter Plan of Treatment Not on filedocumented as of this encounter Visit Diagnoses Diagnosis Colitis Crohn's (HCC) documented in this encounter Care Teams Auto Damage Estimator Relationship Specialty Start Date End Date Belkys Marshall APRN, C.N.P., M.S. PCP - General Family Medicine 11/16/19 [address] [place] [address] documented as of this encounter
--- OUTSIDE RECORDS SUMMARY | 2022-08-31 12:37 | XMS_ITS | Encounter Summary ---
:[address] [facility] Address [address] [place] [address] Care Team Providers Name Role Phone Belkys Marshall APRN C.NJuliaPJulia, M.S. Primary Care Provider +1- [phone] Reason for Visit Reason Onset Date Comments Testing For Upper Respiratory Virus Symptoms 11/01/2020 Encounter Details Date Type Department Care Team Description 11/01/2020 External Outreach Department of Nichelle Kim Infection Upper Medicine, [place] Cherise BlanchardATyrese Respiratory (Primary Clinic, in [place], [address] [place] [address] Dx) [place], [place] [address] [facility] [address] [place], [place] [phone] [address] (Work) [phone] Social History Tobacco Use Types Packs/Day Years [...] documented as of this encounter Progress Notes Ev Brumfield, L.P.N. - 11/01/2020 2:42 PM CST Encounter created for symptomatic infectious disease screening with possible COVID, Influenza, and RSV testing. ER OPERATOR TILE documented in this encounter Plan of Treatment Not on filedocumented as of this encounter Procedures Procedure Name Priority Date/Time Associated Diagnosis Comme nts SARS CORONAVIRUS-2 Routine 11/02/2020 11:47 AM Infection Upper Results for this RNA, V CUTTER OPERATOR TILE Respiratory procedure are i n the results section. documented in this encounter Results SARS Coronavirus-2 RNA, V Symptomatic (11/02/2020 11:47 AM CUTTER OPERATOR TILE) [facility] Method Time Signature SARS-CoV-2 Swab, 11/03/2020 ECLR Specimen Nasopharynx 12:19 AM Source CUTTER OPERATOR TILE SARS CoV-2 Undetected Undetected 11/03/2020 ECLR RNA, TMA 12:19 AM CUTTER OPERATOR TILE Comment: SARS-CoV-2 RNA absent. This result does not rule out COVID-19 in the patient, as the sensitivity of the test depends o n the timing of the specimen collection and the quality of the specim en. Result should be correlated with patient's history and clinical presentat ion. ----ADDITIONAL INFORMATION---- This molecular amplification test was pe rformed using the Aptima SARS-CoV-2 assay ([employer] on the IVDesks tem under emergency use authorization (EUA) by the U.S. Food and Drug Administ ration. Fact sheets for this EUA assay can be fo und at the following links: For Healthcare Providers: https://www.Daily Dealy a.gov/media/963122/download For Patients: https://www.fda.gov/media/ 523142/download Specimen Anatomical Collection Method Collection Time Receive d Time (Source) Location / / Volume Laterality Varies 11/02/2020 11:47 11/02/2020 3:23 (Nasopharynx) AM CUTTER OPERATOR TILE PM CUTTER OPERATOR TILE Marlon Garcia P.A.-C. LAB MICROBIOLOGY - GENERAL O HEATHER Performing Organization Address City/State/ZIP Code Phon e Number [facility]- [address] [place] [address] 54 [phone] [facility] [place] [address] System in [address] documented in this encounter Visit Diagnoses Diagnosis Infection Upper Respiratory - Primary documented in this encounter Additional Health Concerns Infection Onset Date Last Indicated Resolved Time COVID19 Pending 11/01/2020 11/02/2020 11/03/2020 12:20 AM CUTTER OPERATOR TILE documented as of this encounter Care Teams Insulation Board Calender Operator Relationship Specialty Start Date End Date Belkys Marshall, KARL, C.N.P., M.S. PCP - General Family Medicine 11/16/[address] [place] [address] documented as of this encounter
--- OUTSIDE RECORDS SUMMARY | 2022-08-31 12:37 | XMS_ITS | Encounter Summary ---
:1995 Author Organization [facility] Address [address] [place] [address] Care Team Providers Name Role Phone Belkys Marshall APRN, C.NVira., M.S. Primary Care Provider +1- [phone] Encounter Details Date Type Department Care Team Description 10/19/2020 Admin Visit Department of Family Medicine, [facility] in [place], [place] [address] [address] [facility] [phone] Social History Tobacco Use Types Packs/Day Years [...] COVID19 Pending 10/19/2020 10/19/2020 10/20/2020 2:56 AM MAID HOUSEKEEPER documented as of this encounter Care Teams Brick Setter Relationship Specialty Start Date End Date Belkys Marshall, KARL, C.N.P., M.S. PCP - General Family Medicine 11/16/19 [address] [place] [address] documented as of this encounter
--- OUTSIDE RECORDS SUMMARY | 2022-08-31 12:37 | XMS_ITS | Encounter Summary ---
:1995 Author Organization [facility] Address [address] [place] [address] Care Team Providers Name Role Phone Belkys Marshall APRN, C.N.P., M.S. Primary Care Provider +1- [phone] Encounter Details Date Type Department Care Team Description 08/12/2020 Hospital Encounter Department of Laboratory St stevenson Marshall, Fatigue Medicine and Pathology, Layne BARAJAS N.P., M.S. [facility], in [address] [place] [address] Claudio Hernandez [address] [place] [address] [phone] Social History Tobacco Use Types Packs/Day Years [...] Name Priority Date/Time Associated Diagnosis Comme nts 25-HYDROXYVITAMIN Routine 08/12/2020 2:54 PM Fatigue Resu lts for this D2 AND D3, S CDT procedure are i n the results section. CBC WITH Routine 08/12/2020 2:54 PM Fatigue Results f or this DIFFERENTIAL, B CDT procedure ar e in the results section. FERRITIN, S Routine 08/12/2020 2:54 PM Fatigue Results f or this CDT procedure are i n the results section. documented in this encounter Results 25-Hydroxyvitamin D2 and D3 (08/12/2020 2:54 PM CDT) P athologist Signature 25-Hydroxy D2 <4.0 ng/mL 08/16/2020 SDSC 10:13 PM CDT 25-Hydroxy D3 37 ng/mL 08/16/2020 [facility] 10:13 PM CDT 25-Hydroxy D 37 ng/mL 08/16/2020 [facility] Total 10:13 PM CDT Comment: ----REFERENCE VALUE---- 25-HYDROXY D TOTAL (D2+D3) Optimum level s in the healthy population are 20-50, patients with bone disease may benefit from higher levels within this r presley. ----ADDITIONAL INFORMATION---- This test was developed and its performa nce characteristics determined by [facility] in a manner consistent with CLIA requirements. This test has not been cleared or approved by the U.[place]. [place] d and Drug Administration. Specimen Anatomical Collection Method Collection Time Receive d Time (Source) Location / / Volume Laterality Blood (Blood, 08/12/2020 2:54 PM 08/15/20 20 9:01 Venous) CDT AM CDT Belkys Marshall APRN C.N.P., M.S. LAB BLOOD ADD-ON Performing Organization Address City/[facility]/ZIP [facility] Phon e Number [facility] [address] [place], [place] [address] [facility] [place] [address] Laboratory Medicine and Pathology [address] [place] Ferritin (08/12/2020 2:54 PM CDT) athologist Signature Ferritin, S 33 11 - 307 08/12/2020 DTL mcg/L 6:08 PM CDT Specimen Anatomical Collection Method Collection Time Receive d Time (Source) Location / / Volume Laterality Blood (Blood, 08/12/2020 2:54 PM 08/12/20 20 5:22 Venous) CDT PM CDT Belkys Marshall APRN, C.N.P., MJuliaS. LAB BLOOD ADD-ON Performing Organization Address [facility] Phon e Number [facility] - 200 [place], [place] [address] [facility] [place] [address] Laboratories-[facility] 200 [facility] CBC with Differential, Blood (08/12/2020 2:54 PM CDT) athologist Signature Hemoglobin 14.2 11.6 - 08/12/2020 DTL 15.0 g/dL 5:33 PM CDT Hematocrit 41.8 35.5 - 08/12/2020 DTL 44.9 % 5:33 PM CDT Erythrocytes 4.28 3.92 - 08/12/2020 DTL 5.13 5:33 PM CDT x10(12)/L MCV 97.7 78.2 - 08/12/2020 DTL 97.9 fL 5:33 PM CDT RBC Distrib Width 12.3 12.2 - 08/12/2020 DTL 16.1 % 5:33 PM CDT Platelet Count 337 157 - 371 08/12/2020 DTL x10(9)/L 5:33 PM CDT Leukocytes 7.5 3.4 - 9.6 08/12/2020 DTL x10(9)/L 5:33 PM CDT Neutrophils 4.87 1.56 - 08/12/2020 DTL 6.45 5:33 PM CDT x10(9)/L Lymphocytes 1.90 0.95 - 08/12/2020 DTL 3.07 5:33 PM CDT x10(9)/L Monocytes 0.52 0.26 - 08/12/2020 DTL 0.81 5:33 PM CDT x10(9)/L Eosinophils 0.14 0.03 - 08/12/2020 DTL 0.48 5:33 PM CDT x10(9)/L Basophils 0.06 0.01 - 08/12/2020 DTL 0.08 5:33 PM CDT x10(9)/L Specimen Anatomical Collection Method Collection Time Receive d Time (Source) Location / / Volume Laterality Blood (Blood, 08/12/2020 2:54 PM 08/12/20 5:22 Venous) CDT PM CDT Belkys Marshall APRN, C.N.P., M.S. LAB BLOOD ADD-ON Performing Organization Address City/State/ZIP Code Phon e Number [facility] - [address] [place] [address] [facility] [place] [address] Laboratories-[facility] 200 [facility] documented in this encounter Visit Diagnoses Diagnosis Fatigue documented in this encounter Care Teams Equity Research Associate Relationship Specialty Start Date End Date Belkys Marshall APRN, C.Claudio.Mame., M.S. PCP - General Family Medicine 11/16/[address] [place] [address] documented as of this encounter
--- OUTSIDE RECORDS SUMMARY | 2022-08-31 12:37 | XMS_ITS | Encounter Summary ---
:1995 Author Organization [facility] Address [address] [place] [address] Care Team Providers Name Role Phone Belkys Marshall APRN, C.NTawanna, [facility]. Primary Care Provider +1- [phone] Encounter Details Date Type Department Care Team Description 07/25/2020 Clinical Communication Department of [facility] Marshall Medicine, [facility] KARL CJuliaNTawanna, [facility], [place], [place] [address] [place] [address] [place] [phone] Social History Tobacco Use Types Packs/Day Years [...] or relatives? How often do you attend sabianism or 1 to 4 times per year 11/11 christianity services? Do you belong to any clubs or Yes 11/23/2021 organizations such as sabianism groups, unions, fraternal or athletic groups, or [...] this encounter Miscellaneous Notes Telephone Encounter - Eric Yo - 07/25/2020 2:26 PM CDT Caller:Laurel Relationship to Patient:Self Callback Number:[phone] Pharmacy:N/ A Request/Details:Patient called to speak with a nurse regarding questions about upcoming ultrasound appt on 08/30. Patient wants to know if the ultrasound includes the liver. documented in this encounter Plan of Treatment Not on filedocumented as of this encounter Visit Diagnoses Not on filedocumented in this encounter Care Teams Gasoline Truck Crane Operator Relationship Specialty Start Date End Date Belkys Marshall, KARL, C.N.P., M.S. PCP - General Family Medicine 11/16/[address] [place] [address] documented as of this encounter
--- OUTSIDE RECORDS SUMMARY | 2022-08-31 12:38 | XMS_ITS | Encounter Summary ---
:1995 Author Organization [facility] Address [address] [place] [address] Care Team Providers Name Role Phone Belkys Marshall APRN, C.N.P., M.S. Primary Care Provider +1- [phone] Reason for Visit Reason Comments Vaginal Discharge burning Appointment Request (Routine) - Closed Specialty Diagnoses / Procedures Referred By Contact Refer red To Contact Family Medicine Referral ID Status Reason Start Date Expiration Date Visits Requ ested Visits Authorized [id number] Closed 03/08/2020 03/08/2021 1 1 Encounter Details Date Type Department Care Team Description 03/08/2020 Telemedicine Department of [facility] Belkys Marshall Can didiasis Vulva Vagina (Primary Dx); Medicine, [facility] Layne BARAJASNTawanna, Ángel elena For Vene[facility].S. [place], [place] [address] [place] [address] [place] [address] Social History Tobacco Use Types Packs/Day [...] documented as of this encounter Progress Notes Belkys Marshall APRN, C.NTawanna, M.S. - 03/08/2020 3:00 PM CDT SUBJECTIVE CHIEF COMPLAINT / REASON FOR VISIT Laurel Mcdonald is a 25 y.o. female, patient of Belkys Marshall APRN, C.N.P., M.S. who presents for evaluation of Vaginal Discharge (burning). HISTORY OF PRESENT ILLNESS Reports yesterday she developed white-yellow vaginal discharge with pruritis and burning sensation.Area is red and swollen. Has some mild burning with urination initially, but this resolved after sheapplied Vagisil cream. Denies urinary frequency, urgency, hematuria. Denies abnormal vaginal bleeding. Denies fever, chills, abdominal pain or cramping. She had unprotected intercourse one- week ago. Pap smear up to date. The following portions of the patient's history were reviewed and updated as appropriate: allergies,current medications, family history, medical history, social history, surgical history and problem list. REVIEW OF SYSTEMS Constitutional: Positive for fatigue, loss of appetite and night sweats. Cardiovascular: Positive for swelling in the legs or feet and rapid or fluttering heart beat. Gastrointestinal: Positive for abdominal (belly) pain or cramping and nausea. Neurological: Positive for excessive daytime sleepiness and headaches. Psychiatric/Behavioral: Positive for excessive daytime sleepiness/tiredness. The following systems were negative: Skin, Eyes, ENT, Respiratory, , Hematologic, Musculoskeletal OBJECTIVE PHYSICAL EXAM Constitutional General: She is not in acute distress. Appearance: Normal appearance. She is well-developed. She is not diaphoretic. HENT Head: Normocephalic. Eyes Conjunctiva/sclera: Conjunctivae normal. Neurological Mental Status: She is alert and oriented to person, place, and time. Psychiatric Mood and Affect: Mood normal. Behavior: Behavior normal. Thought Content: Thought content normal. Judgment: Judgment normal. Vitals: 03/08/20 1452 PainSc: 4 PainLoc: Vagina ASSESSMENT / PLAN #1 Candidiasis Vulva Vagina Symptoms most suggestive of yeast infection. Will empirically treat with Diflucan. Advised that if symptoms fail to improve with this then she is to portal message me and will arrange F2F appointment for further evaluation. #2 Screening For Venereal Disease - Chlamydia / Gonorrhoeae Amplified RNA; Future; Expected date: 03/08/2020 - HIV-1/-2 Ag and Ab Screen, Plasma; Future; Expected date: 03/08/2020 - Syphilis Total Ab w/ Reflex, Serum; Future; Expected date: 03/08/2020 Other orders - fluconazole (DIFLUCAN) 150 mg tablet; Take 1 tablet (150 mg total) by mouth See Admin Instructions. Take one tab now. Repeat in 3 days if symptoms persist., Starting Sat03/08/2020, Until Sat03/08/2021, Normal documented in this encounter Plan of Treatment Not on filedocumented as of this encounter Results Chlamydia / Gonorrhoeae Amplified RNA (03/08/2020 3:47 PM CDT) [facility] Method Time Signature Source Urine, 03/10/2020 DTL Urine, First 12:39 AM CDT Voided Chlamydia Negative Negative 03/10/2020 DTL trachomatis 12:39 AM CDT amplified RNA Source Urine, 03/10/2020 DTL Urine, First 12:39 AM CDT Voided Neisseria Negative Negative 03/10/2020 DTL gonorrhoeae 12:39 AM CDT amplified RNA Specimen Anatomical Collection Method Collection Time Receive d Time (Source) Location / / Volume Laterality Varies (Urine, 03/08/2020 3:47 PM 020 6:59 First Voided) CDT PM CDT Belkys Marshall APRN, C.N.P., M.S. LAB MICROBIOLOGY - G ENERAL ORDERABLES Performing Organization Address City/[facility] Phon e Number [facility] - 200 [place], [place] [address] [facility] [place] [address] Laboratories-[facility] 200 [facility] Syphilis Total Ab w/ Reflex, Serum (03/08/2020 3:38 PM CDT) [facility] Method Time Signature Syphilis Nonreactive Nonreactive 03/09/2020 [facility] Total Ab w/ 8:58 AM CDT Reflex Comment: No serologic evidence of infection with T. pallidum (syphilis). ??Repeat testing may be cons idered in patients with suspected acute or primary syphilis in 2-4 weeks. For additional information on interpreta tion of the syphilis reverse algorithm and resul ts, see: [email or web address] df Specimen Anatomical Collection Method Collection Time Receive d Time (Source) Location / / Volume Laterality Blood (Blood, 03/08/2020 3:38 PM 03/08/20 20 8:18 Venous) CDT PM CDT Celina Sequeira APRN.Claudio.Cherise, M.S. LAB BLOOD ADD-ON Performing Organization Address City/State/[facility] Phon e Number [facility] [address] [place], [place] [address] [facility] [place] [address] Laboratory Medicine and Pathology [address] [place] HIV-1/-2 Ag and Ab Screen, Plasma (03/08/2020 3:38 PM CDT) P athologist Signature HIV-1/-2 Ag Negative Negative 03/08/2020 [facility] and Ab Screen, 10:37 PM CDT P Comment: Negative result does not rule out HIV in fection. If exposure to HIV infection occurred <14 d ays ago, contact the laboratory to request additi on of HIV-1 RNA detection / quantification test (HIV QN). Specimen Anatomical Collection Method Collection Time Receive d Time (Source) Location / / Volume Laterality Blood (Blood, 03/08/2020 3:38 PM 03/08/20 20 9:30 Venous) CDT PM CDT Celina Sequeira APRN.N.Mame., M.S. LAB MICROBIOLOGY - B LOOD ORDERABLES Performing Organization Address City/[facility] Phon e Number [facility] [address] [place], [place] [address] [facility] [place] [address] Laboratory Medicine and Pathology [address] [place] [address] Dr. VALLES documented in this encounter Visit Diagnoses Diagnosis Candidiasis Vulva Vagina - Primary Screening For Venereal Disease documented in this encounter Care Teams Digital Campaign Manager Relationship Specialty Start Date End Date Belkys Marshall APRN, C.N.Mame., M.S. PCP - General Family Medicine 11/16/[address] [place] [address] documented as of this encounter
--- OUTSIDE RECORDS SUMMARY | 2022-08-31 12:38 | XMS_ITS | Encounter Summary ---
:1995 Author Organization [facility] Address [address] [place] [address] Care Team Providers Name Role Phone Belkys Marshall APRN C.N.P., M.S. Primary Care Provider +1- [phone] Reason for Visit Reason Comments Appointment Encounter Details Date Type Department Care Team Description 05/06/2020 Clinical Communication Department of Tatiana Perez, Claudia ointment Dermatology in [address] [place] [address] Social History Tobacco Use Types [...] on filedocumented in this encounter Care Teams Lumber Checker Relationship Specialty Start Date End Date Belkys Marshall, KARL, C.N.P., M.S. PCP - General Family Medicine 11/16/19 [address] [place] [address] documented as of this encounter
--- OUTSIDE RECORDS SUMMARY | 2022-08-31 12:38 | XMS_ITS | Encounter Summary ---
:1995 Author Organization [facility] Address [address] [place] [address] Care Team Providers Name Role Phone Belkys Marshall APRN, C.N.P., M.S. Primary Care Provider +1- [phone] Reason for Referral Outpatient (Routine) - Closed Specialty Diagnoses / Procedures Referred By Contact Refer red To Contact Diagnoses [facility]'s [facility] Gallbladder M.B.B.S. [address] [place] [phone] Referral ID Status Reason Start Date Expiration Date Visits Requ ested Visits Authorized [id number] Closed 05/03/2020 05/03/2021 1 1 Encounter Details Date Type Department Care Team Description 05/03/2020 Orders Only Division of Michelle Janea se (HCC) Gastroenterology in [facility] (Primary Dx) [place], [place] M.B.B.S. [address] [facility] [address] [place] [address] [place], [place] [phone] Social History Tobacco Use Types Packs/Day Years [...] more prominent than on prior exam. Juan RAMIREZ US PROCEDURES Comprehensive Metabolic Panel (05/23/2020 7:48 AM CDT) P athologist Signature Potassium, S 3.9 3.6 - 5.2 05/23/2020 DTL mmol/L 9:05 AM CDT Sodium, S 143 135 - 145 05/23/2020 DTL mmol/L 9:05 AM CDT Chloride, S 104 98 - 107 05/23/2020 DTL mmol/L 9:05 AM CDT Bicarbonate, S 27 22 - 29 05/23/2020 DTL mmol/L 9:05 AM CDT Anion Gap 12 7 - 15 05/23/2020 DTL 9:05 AM CDT BUN (Blood Urea 11 6 - 21 05/23/2020 DTL Nitrogen), S mg/dL 9:05 AM CDT Creatinine 1.00 0.59 - 05/23/2020 DTL 1.04 mg/dL 9:05 AM CDT eGFR-Non 78 >=60 05/23/2020 DTL Black/ mL/min/BSA 9:05 AM CDT Nepalese Comment: ----ADDITIONAL INFORMATION---- Estimated GFR calculated using the 2009 CKD_EPI creatinine equation. eGFR-Black/ 90 >=60 mL/min/BSA 2019 9:05 AM CDT DTL Comment: ----ADDITIONAL INFORMATION---- Estimated GFR calculated using the 2009 CKD_EPI creatinine equation. Calcium, Total, S 9.9 8.6 - 10.0 mg/dL 05/23/2020 9:05 AM CDT DTL Glucose, S 90 70 - 140 mg/dL 05/23/2020 9:05 AM CDT D TL Protein, Total, S 7.0 6.3 - 7.9 g/dL 05/23/2020 9:05 A M CDT DTL Albumin, S 4.8 3.5 - 5.0 g/dL 05/23/2020 9:05 AM CDT D TL Aspartate Aminotransferase (AST), 18 8 - 43 U/L 05/23 9:05 AM CDT DTL S Alkaline Phosphatase, S 44 35 - 104 U/L 05/23/2020 9: 05 AM CDT DTL Alanine Aminotransferase (ALT), S 12 7 - 45 U/L 05/23 9:05 AM CDT DTL Bilirubin, Total, S 0.3 <=1.2 mg/dL 05/23/2020 9:05 AM CDT DTL Specimen Anatomical Collection Method Collection Time Receive d Time (Source) Location / / Volume Laterality Blood (Blood, 05/23/2020 7:48 AM 05/23/20 20 8:45 Venous) CDT AM CDT Juan Jama LAB BLOOD ADD-ON Performing Organization Address City/State/ZIP Code Phon e Number [facility] - [address] [place], [place] [address] [facility] [place] [address] Laboratories-[facility] [address] documented in this encounter Visit Diagnoses Diagnosis Crohn's Disease (HCC) - Primary Crohn's Disease (HCC) documented in this encounter Care Teams Medical Officer Relationship Specialty Start Date End Date Belkys Marshall, KARL, C.N.P., M.S. PCP - General Family Medicine 11/16/19 [address] [place] [address] documented as of this encounter
--- OUTSIDE RECORDS SUMMARY | 2022-08-31 12:38 | XMS_ITS | Encounter Summary ---
:1995 Author Organization [facility] Address [address] [place] [address] Care Team Providers Name Role Phone Belkys Marshall APRN, C.N.P., M.S. Primary Care Provider +1- [phone] Reason for Visit Reason Comments Triage COVID Nurse [facility] Encounter Details Date Type Department Care Team Description 03/08/2020 Nurse Triage Department of [facility], Delma Aquino; COVID Nurse Medicine, [facility], in [phone] [place], [place] (Work) [address] [place] [address] Social History Tobacco Use Types [...] or relatives? How often do you attend yazidi or 1 to 4 times per year 11/11 anabaptist services? Do you belong to any clubs or Yes 11/23/2021 organizations such as yazidi groups, unions, fraternal or athletic groups, or [...] on filedocumented in this encounter Care Teams Ground Helper Street Railway Relationship Specialty Start Date End Date Belkys Marshall, KARL, C.N.P., M.S. PCP - General Family Medicine 11/16/19 [address] [place] [address] documented as of this encounter
--- OUTSIDE RECORDS SUMMARY | 2022-08-31 12:38 | XMS_ITS | Encounter Summary ---
:1995 Author Organization [facility] Address [address] [place] [address] Care Team Providers Name Role Phone Belkys Marshall APRN, C.N.P., M.S. Primary Care Provider [phone]- [phone] Reason for Referral Outpatient (Routine) - Closed Specialty Diagnoses / Procedures Referred By Contact Refer red To Contact Diagnoses Crohn's Disease (HCC) [facility] Procedures Colonoscopy restricted [facility] [address] [place] [phone] Referral ID Status Reason Start Date Expiration Date Visits Requ ested Visits Authorized [id number] Closed 04/14/2020 04/14/2021 1 1 Reason for Visit Outpatient (Routine) - Closed Specialty Diagnoses / Procedures Referred By Contact Refer red To Contact Diagnoses Crohn's Disease (HCC) Lucinda, [facility] Procedures Colonoscopy restricted [facility] [address] [place] [phone] Referral ID Status Reason Start Date Expiration Date Visits Requ ested Visits Authorized [id number] Closed 04/14/2020 04/14/2021 1 1 Encounter Details Date Type Department Care Team Description 04/29/2020 Hospital Encounter Division of [facility] Crohn's D isease Gastroenterology in , ([facility]) [place], [place] Juan, [address] [facility] [address] [address] [place] [phone] Social History Tobacco Use Types Packs/Day Years [...] Sign Reading Time Taken Comments Blood Pressure 108/67 04/29/2020 11:30 AM CDT Pulse 82 04/29/2020 11:30 AM CDT Temperature 35.1 ??C (95.2 ??F) 04/29/2020 10:48 AM CDT Respiratory Rate 17 04/29/2020 11:30 AM CDT Oxygen Saturation 87% 04/29/2020 11:30 AM CDT Inhaled Oxygen Concentration - - Weight 63.5 kg (140 lb) 04/29/2020 8:16 AM CDT Height 165.1 cm (5' 5) 04/29/2020 8:16 AM CDT Body Mass Index 23.3 04/29/2020 8:16 AM CDT documented in this encounter Medications at Time of Discharge Medication Sig Dispensed Refills Start Date End Date mercaptopurine Take 1 tablet (50 90 tablet 1 11/17/201903/2020 (PURINETHOL) 50 mg tablet mg total) by mouth daily. Take on an empty stomach. albuterol (for_PROVENTIL Inhale 1-2 puffs. 0 12/201607/29/2020 HFA,VENTOLIN HFA) 90 mcg/actuation inhaler norethindrone (Jemima) Take 1 tablet 84 tablet 4 0 02/01/2021 0.35 mg tablet (0.35 mg total) by mouth daily. norethindrone (MICRONOR) Take 0.35 mg by 0 201902/01/2021 0.35 mg tablet mouth. nortriptyline (PAMELOR) 25 Take 1 capsule (25 90 capsule 1 0 03/14/2020 02/01/2021 mg capsuleIndications: mg total) by mouth Nausea at bedtime. ondansetron ODT PLACE 1 TABLET ON 30 tablet 0 05/20/2019 (ZOFRAN-ODT) 4 mg THE TONGUE THREE disintegrating TIMES A DAY tabletIndications: Nausea ustekinumab (Stelara) 90 Inject 1 mL (90 mg 2 mL 0 02/202011/15/2020 mg/mL total) under the injectionIndications: skin every 8 Crohn's Disease (HCC) (eight) weeks. documented as of this encounter Plan of Treatment Not on filedocumented as of this encounter Procedures Procedure Name Priority Date/Time Associated Comments Diagnosis SURGICAL PATHOLOGY Routine 04/29/2020 10:11 Resul ts for this AM CDT procedure are i n the results section. COLONOSCOPY Routine 04/29/2020 9:31 AM Crohn's Disease RESTRICTED CDT (HCC) COLONOSCOPY Routine 04/29/2020 9:31 AM Crohn's Disease Result s for this CDT (HCC) procedure are i n the results section. documented in this encounter Results Surgical Pathology (04/29/2020 10:11 AM CDT) Component Value Ref Test Analysis Performed At [facility] g[facility] Range Method Time Signature 05/02/2020 DTL 1:02 PM CDT Report Josafat Wagner M.D. [id number] 05/02/2020 DTL electronically I verify that I have examined all relevant slides/ma terials 1:02 PM CDT signed by for the specimen(s) and rendered or confirmed the diagnosis. Gross Description A: ?? Received in formalin labeled with the patie nt's name, 05/02/2020 DTL medical record number, and colon, cecum, ascending colon 1:02 PM CDT are five pale haynes irregular soft tissues, ranging from 0.2-0.5 cm in greatest dimension. Specimens are submitted en toto in cassette A1. ??Grossed by MARGARITA. B: ?? Received in formalin labeled with the patient's name, medical record number, and colon, transverse colon are six pale-haynes irregular soft tissues, ranging from 0.1-0.6 cm in greatest dimension. Specimens are submitted en toto in cassette B1. ??Grossed by MARGARITA. C: ?? Received in formalin labeled with the patient's name, medical record number, and colon, descending colon are six pale-haynes irregular soft tissues, ranging from 0.2-0.3 cm in greatest dimension. Specimens are submitted en toto in cassette C1. ??Grossed by MARGARITA. D: ?? Received in formalin labeled with the patient's name, medical record number, and colon, sigmoid, rectum are four pale haynes irregular soft tissues, ranging from 0.2-0.5 cm in greatest dimension. Specimens are submitted en toto in cassette D1. ??Grossed by SL. E: ?? Received in formalin labeled with the patient's name, medical record number, and colon, transverse colon are two pale-haynes irregular soft tissues, 0.2 x 0.2 x 0.1 cm and 0.3 x 0.2 x 0.1 cm. Specimens are submitted en toto in cassette E1. ??Grossed by MARGARITA. Interpretation FINAL DIAGNOSIS 05/02/2020 DTL A. Colon, cecum, ascending, endoscopic biopsy: ??Normal 1:02 PM CDT colonic mucosa. No dysplasia. B. Colon, transverse, endoscopic biopsy: ??Colonic mucosa with very focal, mild acute inflammation. No granulomas. No dysplasia. C. Colon, descending, endoscopic biopsy: ??Colonic mucosa without diagnostic abnormality. No dysplasia. D. Colon, sigmoid, rectum, endoscopic biopsy: ??Colonic mucosa without diagnostic abnormality. No dysplasia. E. Colon, polyp, transverse, endoscopic biopsy: ??Colonic mucosa with benign lymphoid aggregate. No dysplasia. Specimen (Source) Anatomical Collection Method Collection Time Re ceived Time Location / / Volume Laterality Biopsy (Colon) 04/29/2020 10:11 AM CDT Biopsy (Colon) 04/29/2020 10:11 AM CDT Biopsy (Colon) 04/29/2020 10:12 AM CDT Biopsy (Colon) 04/29/2020 10:12 AM CDT Polyp (Colon) 04/29/2020 10:17 AM CDT Narrative This result has an attachment that is no t available. Julita Parrish M.D. LAB SURG PATH ORDERABLES Performing Organization Address City/State/ZIP Code Phon e Number [facility] - [address] [place], [place] [address] [facility] [place] [address] [facility] [address] Colonoscopy (04/29/2020 9:31 AM CDT) Specimen (Source) Anatomical Collection Method Collection Time Re ceived Time Location / / Volume Laterality 04/29/2020 9:[address] [facility] - 04/29/2020 10:41 AM CDT Post-op Diagnoses: ? - The examined portion of the ile um was normal. ? - Pseudopolyps in the sigmoid col on, in the descending colon, in the ? transverse colon, at the hepatic flexure, in the ascending colon and in ? the cecum. ? - Simple Endoscopic Score for [employer] hn's Disease: 0, mucosal inflammatory ? changes secondary to quiescent Cr ohn's disease. Biopsied. ? - One 4 mm polyp in the transvers e colon. Biopsied. Narrative [facility] - 04/29/2020 10:41 AM CDT G[facility] 9 GI GI Patient Name: Laurel Mcdonald Date of : 1995 Age: 25 Gender: Female Procedure Date: 04/29/2020 Procedure: ? Colonosc opy Providers: ? Julita Parrish MD Referring Provider: ?CHESTER Pierce Pre-op Diagnoses: ?Crohn's dis ease of the colon Recommendation: ? - Await pathology results. ? - PATHOLOGY/MICROBIOLOGY FOLLOW-U P: The ordering provider is responsible ? for reviewing results from specim ens obtained during this endoscopic ? procedure and communicating the f indings to the patient. If guidance is ? needed for interpreting endoscopi c findings or pathology results, please ? consider a gastroenterology e-con sult. Findings: ? The perianal and digital rectal e xaminations were normal. ? The terminal ileum appeared cory l. ? Diffuse pseudopolyps were found i n the sigmoid colon, in the descending ? colon, in the transverse colon, a t the hepatic flexure, in the ascending ? colon and in the cecum. ? The Simple Endoscopic Score for C [...] - Total SES-CD aggregate score: 0 . Biopsies were taken with a cold ? forceps from the cecum, ascending colon, transverse colon, descending ? colon and rectosigmoid colon for dysplasia surveillance. These biopsy ? specimens were sent to Pathology. ? A 4 mm polyp was found in the tra nsverse colon, appeared larger than the ? surrounding pseudopolyps. The amirah yp was sessile. Biopsies were taken ? with a cold forceps for histology . Verification of patient ? identification for the specimen w as done. Procedural Details: ? The patient was seen, [...] through the a nus and advanced to 3 cm into the ? ileum. The Colonoscope was introd uced under direct vision through the ? anus and advanced to. The colonos copy was technically difficult and ? complex due to a tortuous colon. Successful completion of the procedure ? was aided by using manual pressur e. The patient tolerated the procedure ? well. The quality of the bowel pr eparation was good. The quality of the ? bowel preparation was evaluated u sing the BBPS (Seanor Bowel Preparation ? Scale) with scores of: Right Trout n = 2 (minor amount of residual ? staining, small fragments of stoo l and/or opaque liquid, but mucosa seen ? well), Transverse Colon = 2 (emerita r amount of residual staining, small ? fragments of stool and/or opaque liquid, but mucosa seen well) and Left ? Colon = 2 (minor amount of residu al staining, small fragments of stool ? and/or opaque liquid, but mucosa seen well). The total BBPS score equals ? 6. The quality of the bowel prepa ration was good. Estimated Blood Loss: ?Estimated blo od loss was minimal. Complications: ? No immedia te complications. Sedation: ? Anesthesia was administered by an anesthesia professional. The following ? parameters were monitored: oxygen saturation, heart rate, blood ? pressure, respiratory rate, EKG, adequacy of pulmonary ventilation, and ? response to care. Attending Participation: I personally pe rformed the entire procedure. Julita Parrish MD 04/29/2020 10:41:23 AM This report has been signed electronical ly. Number of Addenda: 0 Juan [facility] GI PROCEDURE ORDERAB LES Performing Organization Address City/State/ZIP Code Phon e Number [facility] NA documented in this encounter Visit Diagnoses Diagnosis Crohn's Disease (HCC) documented in this encounter Care Teams Production Packager Relationship Specialty Start Date End Date Belkys Marshall APRN, C.N.P., M.S. PCP - General Family Medicine 11/16/19 [address] [place] [address] documented as of this encounter
--- OUTSIDE RECORDS SUMMARY | 2022-08-31 12:38 | XMS_ITS | Encounter Summary ---
:1995 Author Organization [facility] Address [address] [place] [id number] Care Team Providers Name Role Phone Belkys Marshall APRN, C.N.P., M.S. Primary Care Provider [phone]- [phone] Reason for Visit Reason Comments COVID Nurse Line transferred call to covid nu rse line Encounter Details Date Type Department Care Team Description 05/26/2020 Clinical Communication Central Appointment Line, Covid COVID Nurse Line Office in [facility] (transf erred call [place] to covid nurse line [address] [facility] ) [place] [address] Social History Tobacco Use Types Packs/Day [...] this encounter Miscellaneous Notes Telephone Encounter - Jennifer Genao R.N. - 05/26/2020 9:40 AM CDT COVID-19 Nurse Line Screening ASSESSMENT COVID 19 Screening Have you had close contact with a person who has a LABORATORY CONFIRMED case of COVID-19?: No - Continue screening. In the last 48 hours have you had any of the following symptoms?: Fever, New sore throat, New nausea, New chills, New myalgias (muscle aches), New headache(T-max-100) Do you have any urgent symptoms?: None- Patient meets criteria for testing. PLAN Endpoint recommendation: [facility] Personnel directed to contact Employee/Occupational Health. The[employer] [place] number to call [phone] select option 3. and Screening positive, testing indicated, advised to be swabbed for COVID-19, sent to [facility] located near [facility]. Access site from [place] [address] Look for electronic signs for collection entry point. Testing hours are M-F 9:30 am to 5 p.m and Sat-Sun 10 am to 4 pm. Care Points provided: STANDARD PRECAUTIONS FOR ALL PATIENTS: Wash hands often with soap and water for at least 20 seconds, especially after blowing your nose, coughing, sneezing, or having been in a public place. If soap and water aren't available, use a hand wind development director that contains at least 60% alcohol. Avoid [...] develop please contact your provider. Educational Resource: https://www.cdc.gov/coronavirus/2019-ncov/qiuurow-njadqxd-yyae/index.html RECOMMENDATIONS TESTING CRITERIA IS MET: Stay home except to get medical care. Avoid public areasand public transportation. Separate yourself from other people and stay in a specific sick room ifpossible. Wear a cloth face covering, over your nose and mouth if you must be around other people even at home). Cover your nose and mouth when coughing or sneezing. Contact employer/occupational health department to notify them that they are being tested. Seek emergent care if any of the following occur: 1) Trouble breathing, 2) Bluish lips or face, 3) Persistent pain or pressure in the chest, 4) Newly confused or unable to stay alert and awake. Notify appropriate care provider if any new or worsening symptoms. If your test is negative and new symptoms develop please contact your care provider to determine if re-testing is necessary. Education Resources: https://www.cdc.gov/coronavirus/2019-ncov/i c-ggr-rsu-sick/ohfpp-praw-xouh.html SELF CARE FOR ALL PATIENTS: Take breaks from watching, reading, or listening to news stories. Make time to unwind. Try to do some other activities you enjoy. Connect with others. Be creative in keepingconnected with loved ones, especially those at high risk. Try healthy coping strategies such as meditation, relaxation, exercise, healthy eating habits, and avoid alcohol and drugs. Education: patient/caregiver Patient/caregiver able to teach back Patient agreeable to plan of care: Yes The following references were used: [facility] novel coronavirus (COVID- 19) resources Nursing judgement documented in this encounter Plan of Treatment Not on filedocumented as of this encounter Visit Diagnoses Not on filedocumented in this encounter Additional Health Concerns Infection Onset Date Last Indicated Resolved Time COVID19 Pending 05/26/2020 05/26/2020 05/27/2020 11:45 AM CDT documented as of this encounter Care Teams Transport Operations Inspector Relationship Specialty Start Date End Date Belkys Marshall APRN, C.N.P., M.S. PCP - General Family Medicine 11/16/19 [address] [place] [address] documented as of this encounter
--- OUTSIDE RECORDS SUMMARY | 2022-08-31 12:38 | XMS_ITS | Encounter Summary ---
:1995 Author Organization [facility] Address [address] [place] [address] Care Team Providers Name Role Phone Belkys Marshall APRN C.N.P., M.S. Primary Care Provider +1- [phone] Encounter Details Date Type Department Care Team Description 05/25/2020 Ancillary Procedure Department of Dermatology Social History [...] Date/Time Associated Comments Diagnosis DERMATOLOGY IMAGE Routine 05/25/2020 11:05 Result s for this EXAM AM CDT procedure are i n the results section. documented in this encounter Results Breast(s)-Dermatology Image Exam (05/25/2020 11:05 AM CDT) Specimen (Source) Anatomical Collection Method Collection Time Re ceived Time Location / / Volume Laterality 05/25/2020 10:59 AM CDT Narrative [facility] - 05/25/2020 11:05 AM CDT This order has been created [...] on filedocumented in this encounter Care Teams Patient Liaison Relationship Specialty Start Date End Date Belkys Marshall APRN, C.N.P., M.S. PCP - General Family Medicine 11/16/19 [address] [place] [address] documented as of this encounter
--- OUTSIDE RECORDS SUMMARY | 2022-08-31 12:38 | XMS_ITS | Encounter Summary ---
:1995 Author Organization [facility] Address [address] [place] [address] Care Team Providers Name Role Phone Belkys Marshall APRN, C.N.P., M.S. Primary Care Provider +1- [phone] Encounter Details Date Type Department Care Team Description 04/14/2020 Hospital Encounter Department of Lucinda, Crohn' s Disease (HCC) Laboratory Medicine Juan, [facility] [address] [place] [address] [place] [address] [place], [place] [phone] (Work) [phone] Social History Tobacco Use Types Packs/Day Years [...] or relatives? How often do you attend methodist or 1 to 4 times per year 11/11 islam services? Do you belong to any clubs or Yes 11/23/2021 organizations such as methodist groups, unions, fraternal or athletic groups, or [...] stomach. albuterol (for_PROVENTIL Inhale 1-2 puffs. 0 04/0 12/201607/29/2020 HFA,VENTOLIN HFA) 90 mcg/actuation inhaler fluconazole (DIFLUCAN) Take 1 tablet (150 2 tablet 0 03/0804/29/2020 150 mg tablet mg total) by mouth See Admin Instructions. Take one tab now. Repeat in 3 days if symptoms persist. norethindrone (Jemima) Take 1 tablet (0.35 84 tablet 4 02/01/2021 0.35 mg tablet mg total) by mouth daily. norethindrone (MICRONOR) Take 0.35 mg by 0 201902/01/2021 0.35 mg tablet mouth. nortriptyline (PAMELOR) Take 1 capsule (25 90 capsule 1 /02/202002/01/2021 25 mg capsuleIndications: mg total) by mouth Nausea at bedtime. ondansetron ODT PLACE 1 TABLET ON 30 tablet 0 05/20/2019 (ZOFRAN-ODT) 4 mg THE TONGUE THREE disintegrating TIMES A DAY tabletIndications: Nausea [id number] Take 50% of prep 2 box(es) 0 04/14/2020 020 [id number] night before by 10 (MOVIPREP) 100-7.5-2.691 pm and 50% of prep gram per packet following morning starting at 0500 and finish before appointment, as directed. ustekinumab (Stelara) 90 Inject 1 mL (90 mg 2 mL 0 02/202011/15/2020 mg/mL total) under the injectionIndications: skin every 8 Crohn's Disease (HCC) (eight) weeks. documented as of this encounter Plan of Treatment Not on filedocumented as of this encounter Procedures Procedure Name Priority Date/Time Associated Comments Diagnosis THYROID FUNCTION Routine 04/14/2020 4:07 PM Crohn's Disease Re sults for this CASCADE, S CDT ([facility]) procedure are i n the results section. 25-HYDROXYVITAMIN D2 Routine 04/14/2020 4:07 PM Crohn's Diseas e Results for this AND D3, S CDT ([facility]) procedure are i n the results section. CBC WITH DIFFERENTIAL, Routine 04/14/2020 4:07 PM Crohn's Dise ase Results for this B CDT ([facility]) procedure are i n the results section. C-REACTIVE PROTEIN Routine 04/14/2020 4:07 PM Crohn's Disease Results for this (CRP), S/P CDT ([facility]) procedure are i n the results section. COMPREHENSIVE Routine 04/14/2020 4:07 PM Crohn's Disease Resul ts for this METABOLIC PANEL, S/P CDT ([facility]) procedu re are in the results section. documented in this encounter Results Thyroid Function [place] (04/14/2020 4:07 PM CDT) P athologist Signature TSH, Sensitive 1.7 0.3 - 4.2 04/14/2020 DTL mIU/L 6:17 PM CDT Specimen Anatomical Collection Method Collection Time Receive d Time (Source) Location / / Volume Laterality Blood (Blood, 04/14/2020 4:07 PM 04/14/20 20 5:06 Venous) CDT PM CDT Juan RicoB.S. LAB BLOOD ADD-ON Performing Organization Address [facility] Phon e Number [facility] - 200 [place], [place] [address] [facility] [place] [address] CRP (C-Reactive Protein) (04/14/2020 4:07 PM CDT) athologist Signature C-Reactive <3.0 <=8.0 mg/L 04/14/2020 DTL Protein (CRP), 6:17 PM CDT S Specimen Anatomical Collection Method Collection Time Receive d Time (Source) Location / / Volume Laterality Blood (Blood, 04/14/2020 4:07 PM 04/14/20 20 5:06 Venous) CDT PM CDT Juan RicoB.S. LAB BLOOD ADD-ON Performing Organization Address City/[facility] Phon e Number [facility] - 200 [place], [place] [address] [place] [id number] [place] [address] (ABNORMAL) Comprehensive Metabolic Panel (04/14/2020 4:07 PM CDT) athologist Signature Potassium, S 4.4 3.6 - 5.2 04/14/2020 DTL mmol/L 5:32 PM CDT Sodium, S 144 135 - 145 04/14/2020 DTL mmol/L 5:32 PM CDT Chloride, S 104 98 - 107 04/14/2020 DTL mmol/L 5:32 PM CDT Bicarbonate, S 26 22 - 29 04/14/2020 DTL mmol/L 5:32 PM CDT Anion Gap 14 7 - 15 04/14/2020 DTL 5:32 PM CDT BUN (Blood Urea 9 6 - 21 04/14/2020 DTL Nitrogen), S mg/dL 5:32 PM CDT Creatinine 0.85 0.59 - 04/14/2020 DTL 1.04 mg/dL 5:32 PM CDT eGFR-Non >90 >=60 04/14/2020 DTL Black/ mL/min/BSA 5:32 PM CDT [place] Comment: ----ADDITIONAL INFORMATION---- Estimated GFR calculated using the 2009 CKD_EPI creatinine equation. eGFR-Black/ >90 >=60 mL/min/BSA 2019 5:32 PM CDT DTL Comment: ----ADDITIONAL INFORMATION---- Estimated GFR calculated using the 2009 CKD_EPI creatinine equation. Calcium, Total, S 9.6 8.6 - 10.0 mg/dL 04/14/2020 5:32 PM CDT DTL Glucose, S 92 70 - 140 mg/dL 04/14/2020 5:32 PM CDT D TL Protein, Total, S 7.2 6.3 - 7.9 g/dL 04/14/2020 5:32 P M CDT DTL Albumin, S 4.9 3.5 - 5.0 g/dL 04/14/2020 5:32 PM CDT D TL Aspartate Aminotransferase 251 (H) 8 - 43 U/L 04/14/2020 5 :32 PM CDT DTL (AST), S Alkaline Phosphatase, S 39 35 - 104 U/L 04/14/2020 5: 32 PM CDT DTL Alanine Aminotransferase 37 7 - 45 U/L 04/14/2020 5:3 2 PM CDT DTL (ALT), S Bilirubin, Total, S 0.4 <=1.2 mg/dL 04/14/2020 5:32 PM CDT DTL Specimen Anatomical Collection Method Collection Time Receive d Time (Source) Location / / Volume Laterality Blood (Blood, 04/14/2020 4:07 PM 04/14/20 5:06 Venous) CDT PM CDT Juan Jama LAB BLOOD ADD-ON Performing Organization Address City/State/ZIP Code Phon e Number [facility] - [address] [place], [place] [address] [facility] [place] [address] Laboratories-[facility] [address] 25-Hydroxyvitamin D2 and D3 (04/14/2020 4:07 PM CDT) P athologist Signature 25-Hydroxy D2 <4.0 ng/mL 04/15/2020 SDS 10:49 PM CDT 25-Hydroxy D3 38 ng/mL 04/15/2020 SDS 10:49 PM CDT 25-Hydroxy D 38 ng/mL 04/15/2020 [facility] Total 10:49 PM CDT Comment: ----REFERENCE VALUE---- 25-HYDROXY D TOTAL (D2+D3) Optimum level s in the healthy population are 20-50, patients with bone disease may benefit from higher levels within this r presley. ----ADDITIONAL INFORMATION---- This test was developed and its performa nce characteristics determined by [facility] in a manner consistent with CLIA requirements. This test has not been cleared or approved by the [place] [facility] d and Drug Administration. Specimen Anatomical Collection Method Collection Time Receive d Time (Source) Location / / Volume Laterality Blood (Blood, 04/14/2020 4:07 PM 04/15/20 20 8:50 Venous) CDT AM CDT Juan Jama LAB BLOOD ADD-ON Performing Organization Address City/State/ZIP Code Phon e Number [facility] [address] [place], [place] [address] [place] [address] Laboratory Medicine and Pathology [address] [place] (ABNORMAL) CBC with Differential, Blood (04/14/2020 4:07 PM CDT) Patholo gist Method Time Signature Hemoglobin 14.7 11.6 - 04/14/2020 DTL 15.0 g/dL 4:56 PM CDT Hematocrit 44.1 35.5 - 04/14/2020 DTL 44.9 % 4:56 PM CDT Erythrocytes 4.42 3.92 - 04/14/2020 DTL 5.13 4:56 PM CDT x10(12)/L MCV 99.8 (H) 78.2 - 04/14/2020 DTL 97.9 fL 4:56 PM CDT RBC Distrib Width 12.1 (L) 12.2 - 04/14/2020 DTL 16.1 % 4:56 PM CDT Platelet Count 353 157 - 371 04/14/2020 DTL x10(9)/L 4:56 PM CDT Leukocytes 8.6 3.4 - 9.6 04/14/2020 DTL x10(9)/L 4:56 PM CDT Neutrophils 5.86 1.56 - 04/14/2020 DTL 6.45 4:56 PM CDT x10(9)/L Lymphocytes 1.89 0.95 - 04/14/2020 DTL 3.07 4:56 PM CDT x10(9)/L Monocytes 0.55 0.26 - 04/14/2020 DTL 0.81 4:56 PM CDT x10(9)/L Eosinophils 0.20 0.03 - 04/14/2020 DTL 0.48 4:56 PM CDT x10(9)/L Basophils 0.05 0.01 - 04/14/2020 DTL 0.08 4:56 PM CDT x10(9)/L Specimen Anatomical Collection Method Collection Time Receive d Time (Source) Location / / Volume Laterality Blood (Blood, 04/14/2020 4:07 PM 04/14/20 20 4:47 Venous) CDT PM CDT Juan Jama LAB BLOOD ADD-ON Performing Organization Address City/State/ZIP Code Phon e Number [facility] - [address] [place] [address] [address] [facility] [place] [address] Laboratories-[address] documented in this encounter Visit Diagnoses Diagnosis Crohn's Disease (HCC) documented in this encounter Care Teams Teacher Advisor Relationship Specialty Start Date End Date Belkys Marshall, KARL, C.N.P., M.S. PCP - General Family Medicine 11/16/19 [address] [place] [address] documented as of this encounter
--- OUTSIDE RECORDS SUMMARY | 2022-08-31 12:38 | XMS_ITS | Encounter Summary ---
:1994 Author Organization [facility] Address [address] [place] [address] Care Team Providers Name Role Phone Belkys Marshall APRN, C.N.P., M.S. Primary Care Provider +1- [phone] Encounter Details Date Type Department Care Team Description 05/23/2020 Hospital Encounter Department of Lucinda, Crohn' s Disease (HCC) Laboratory Medicine Juan, [facility] [address] [place] [address] [place] [address] [place], [place] [phone] (Work) [phone] Social History Tobacco Use Types Packs/Day Years [...] 1 to 4 times per year 11/11 yazidi services? Do you belong to any clubs [...] Dispensed Refills Start Date End Date albuterol (for_PROVENTIL Inhale 1-2 puffs. 0 12/201607/29/2020 [...] Procedure Name Priority Date/Time Associated Comments Diagnosis COMPREHENSIVE Routine 05/23/2020 7:48 AM Crohn's Disease Resul ts for this METABOLIC PANEL, S/P CDT (HCC) procedu re are in the results section. documented in this encounter Results Comprehensive Metabolic Panel (05/23/2020 7:48 AM CDT) [...] 05/23/2020 DTL Black/ mL/min/BSA 9:05 AM CDT [place] Islander Comment: ----ADDITIONAL INFORMATION---- Estimated GFR calculated using [...] Laterality Blood (Blood, 05/23/2020 7:48 AM 05/23/20 8:45 Venous) CDT AM CDT Juan Jama LAB BLOOD ADD-ON Performing Organization Address City/State/ZIP Code Phon e Number [facility] - 200 [place], [place] [address] [facility] [place] [address] Laboratories-[facility] 200 [facility] documented in this encounter Visit Diagnoses Diagnosis Crohn's Disease (HCC) documented in this encounter Care Teams Certified Master Locksmith Relationship Specialty Start Date End Date Belkys Marshall APRN, C.N.P., M.S. PCP - General Family Medicine 11/16/19 [address] [place] [address] documented as of this encounter
--- OUTSIDE RECORDS SUMMARY | 2022-08-31 12:38 | XMS_ITS | Encounter Summary ---
:1994 Author Organization [facility] Address [address] [place] [address] Care Team Providers Name Role Phone Belkys Marshall APRN, C.N.P., M.S. Primary Care Provider +1- [phone] Encounter Details Date Type Department Care Team Description 03/08/2020 Hospital Encounter Department of Belkys Marshall For Laboratory Medicine KARL Mitchell, Venereal Disease and Pathology, C.N.P., M.S. [facility], in [address] [place] [address] [address] [address] [place] [phone] [place], [place] (Work) [phone] Social History Tobacco Use [...] stomach. albuterol (for_PROVENTIL Inhale 1-2 puffs. 0 04/12/201607/29/2020 HFA,VENTOLIN HFA) 90 mcg/actuation inhaler fluconazole (DIFLUCAN) [...] Take 1 capsule (25 90 capsule 1 05/202003/14/2020 25 mg capsuleIndications: mg total) by mouth Nausea at bedtime. ondansetron ODT PLACE 1 TABLET ON 30 tablet 0 05/20/2019 (ZOFRAN-ODT) 4 mg THE TONGUE THREE disintegrating TIMES A DAY tabletIndications: Nausea ustekinumab (Stelara) 90 Inject 1 mL (90 mg 2 mL 0 04/05/2020 mg/mL total) under the injectionIndications: skin every 8 Crohn's Disease (HCC) (eight) weeks. documented as of this encounter Plan of Treatment Not on filedocumented as of this encounter Procedures Procedure Name Priority Date/Time Associated Diagnosis Comme nts CHLAMYDIA/GONORRHOE Routine 03/08/2020 3:47 PM Screening For R esults for this AE AMPLIFIED RNA CDT Venereal Disease procedu re are in the results section. documented in this encounter Results Chlamydia / Gonorrhoeae Amplified RNA (03/08/2020 3:47 PM CDT) [facility] gist Method Time Signature Source Urine, 03/10/2020 DTL [...] City/State/ZIP Code Phon e Number [facility] - [address] [place], [place] [address] [facility] [place] [address] Laboratories-[facility] [address] documented in this encounter Visit Diagnoses Diagnosis Screening For Venereal Disease documented in this encounter Care Teams Repairer Welding Systems And Equipment Relationship Specialty Start Date End Date Belkys Marshall APRN, C.NVira., M.S. PCP - General Family Medicine 11/16/19 [address] [place] [address] documented as of this encounter
--- OUTSIDE RECORDS SUMMARY | 2022-08-31 12:38 | XMS_ITS | Encounter Summary ---
:1994 Author Organization [facility] Address [address] [place] [address] Care Team Providers Name Role Phone Belkys Marshall APRN C.NVira., M.S. Primary Care Provider +1- [phone] Reason for Referral Outpatient (Routine) - Closed Specialty Diagnoses / Procedures Referred By Contact Refer red To Contact Breast Clinic Diagnoses Lesion Nipple Marge Hernandez M.D. [facility] [address] [place] [phone] Referral ID Status Reason Start Date Expiration Date Visits Requ ested Visits Authorized [id number] Closed 05/26/2020 05/26/2021 1 1 Encounter Details Date Type Department Care Team Description 05/26/2020 Clinical Communication Department of Tatiana Perez, Dermatology in [place], [place] [address] [place] [phone] Social History Tobacco Use Types Packs/Day Years [...] this encounter Miscellaneous Notes Telephone Encounter - Tatiana Perez M.D. - 05/26/2020 9:57 AM CDT I called Ms. Mcdonald let her know that I discussed the case with one of our dermatologists Dr. Hernandez. This lesion could represent an enlargement of an underlying sebaceous gland such as carrera tubercles. At this time we recommend that she first be seen in the breast clinic for a breast exam. The patient has not seen them before and was originally planning on having a breast mammogram this Fall given her history of breast adenomas. Depending on the evaluation by the breast clinic, we may obtaina biopsy afterwards to histologic assessment. All questions and concerns addressed documented in this encounter Plan of Treatment Scheduled Referrals Name Type Priority Associated Diagnoses Order S [facility] Breast [facility] - Outpatient Referral Routine Lesion Nipple Expe cted: General consult 05/26/2020 (clinic) (Approximate), Expires: 05/26/2023 documented as of this encounter Visit Diagnoses Diagnosis Lesion Nipple - Primary documented in this encounter Additional Health Concerns Infection Onset Date Last Indicated Resolved Time COVID19 Pending 05/26/2020 05/26/2020 05/27/2020 11:45 AM CDT documented as of this encounter Care Teams Dry Goods Inspector Relationship Specialty Start Date End Date Belkys Marshall, KARL, C.N.P., M.S. PCP - General Family Medicine 11/16/19 [address] [place] [address] documented as of this encounter
--- OUTSIDE RECORDS SUMMARY | 2022-08-31 12:38 | XMS_ITS | Encounter Summary ---
:1994 Author Organization [facility] Address [address] [place] [address] Care Team Providers Name Role Phone Belkys Marshall APRN C.NVira., M.S. Primary Care Provider +1- [phone] Reason for Visit Reason Comments COVID Inquiry Encounter Details Date Type Department Care Team Description 04/13/2020 Clinical Communication Division of Lucinda Vera Inquiry Gastroenterology in [place], [place] M.B.B.S. [address] [place] [address] [place] [phone] [place], [place] [phone] Social History Tobacco Use Types Packs/Day Years [...] or relatives? How often do you attend congregational or 1 to 4 times per year 11/11 episcopal services? Do you belong to any clubs or Yes 11/23/2021 organizations such as congregational groups, unions, fraternal or athletic groups, or [...] this encounter Miscellaneous Notes Telephone Encounter - Marlon Coles - 04/13/2020 11:43 AM CDT 1. Do you have a pending COVID test because you had symptoms or exposure to someone with COVID or you have tested positive for COVID in the last 30 days? no 2. In the past 14 days, do you, anyone in the household, or anyone you have had prolonged exposure have any of the following? a. Fever = 37.8 C (100.0 F) lasting 24 hours? no b. New symptoms (Specifically: headache, cough, shortness of breath, respiratory distress, sore throat, diarrhea, nausea, vomiting, chills and repeated shaking with chills, myalgia's (muscle aches), loss of smell, or change or loss of taste sensation)? no c. Had close contact with a patient with known or possible COVID-19 in the last 14 days? no Route reply Lucinda Scheduling Contact Number: [phone] documented in this encounter Plan of Treatment Not on filedocumented as of this encounter Visit Diagnoses Not on filedocumented in this encounter Care Teams Acupuncture Physician Relationship Specialty Start Date End Date Belkys Marshall APRN, C.N.P., M.S. PCP - General Family Medicine 11/16/19 [address] [place] [address] documented as of this encounter
--- OUTSIDE RECORDS SUMMARY | 2022-08-31 12:38 | XMS_ITS | Encounter Summary ---
:1994 Author Organization [facility] Address [address] [place] [address] Care Team Providers Name Role Phone Belkys Marshall APRN C.NTawanna, M.S. Primary Care Provider +1- [phone] Encounter Details Date Type Department Care Team Description 03/30/2020 Specialty Pharmacy [facility] Nilam Suresh, [address] [place] [phone] [phone] [place] [address] [place] [phone] (Wo rk) Social History Tobacco Use Types [...] this encounter Miscellaneous Notes Telephone Encounter - Nilam Suresh, Pharm.D., R.Ph. - 03/31/2020 12:40 PM CDT SUBJECTIVE REASON FOR VISIT Specialty pharmacy reassessment of patient's medication knowledge, adherence, and side effects via patient reported questionnaire. Reassessment questions were asked via phone by a patient health care law specialist. (reviewed at or around patient requested refill ) HISTORY OF PRESENT ILLNESS Ms. Laurel Mcdonald is a 25 y.o. female, who is followed by the specialty pharmacy service for Stelara (ustekinumab) . (Indication:Crohn's disease) Patient reported reassessment questions and responses: Informant: patient How comfortable are you understanding the medication(s) you receive from [facility]?: Very Comfortable Side Effects Requiring Attention: no Patient Reported X Missed Doses in the Last Month: 0 Please rate your confidence in your ability to keep taking your medication(s) as prescribed.: excellent confidence How would you rate the effectiveness of your specialty medication(s)?: excellent In general, would you say your quality of life is: excellent Pain rating 0-10: 0/10 Any new/changes in allergies or medications to report?: no new/changes in allergies or medications OBJECTIVE Lab Results Component Value Date CREATININE 0.89 01/18/2020 EGFR >90 01/18/2020 EGFRAFRAMER >90 01/18/2020 Wt Readings from Last 3 Encounters: 01/22/20 63 kg 01/18/20 63.6 kg 09/28/19 64.7 kg Lab Results Component Value Date WBC 7.8 01/18/2020 WBC 6.1 12/23/2018 WBC 10.5 (H) 08/08/2018 ASSESSMENT / PLAN 1. Medication Knowledge and Adherence In reference to the patient reported information above and reviewing refill history in the [facility] record. The patient/caregiver reports appropriate medication knowledge. No adherence issues identified. 2. Medication Side effects/Adverse Events In reference to the patient reported information above: Patient reports no medication side effects requiring attention. Major infection (i.e. requiring hospitalization) not reported. Early indications of safety are acceptable. No reported adverse drug reactions, allergic reactions, overdoses or medication errors. 3. Effectiveness Patient reports medication effectiveness to be: 'excellent'. 4. Quality of Life Patient currently rating quality of life as 'Excellent'. 5. Summary and continued Goals of therapy Based on the above information, the patient's therapy is appropriate to continue. Continue to: -Promote medication adherence. -Evaluate other newly prescribed therapies as needed for drug-drug and drug- disease appropriateness.Specialty medications reconciled and good karin attempt made in maintaining a complete medication list (via dispensing program) at each dispense of medication. -Mitigate, treat or prevent side effects. This patient does not meet the definition of high risk by MCSP definition. Follow-up: every 6 month(s) Nilam Suresh, Pharm.D., R.Ph. documented in this encounter Plan of Treatment Not on filedocumented as of this encounter Visit Diagnoses Not on filedocumented in this encounter Care Teams Registered Route Associate Relationship Specialty Start Date End Date Belkys Marshall APRN, C.N.P., M.S. PCP - General Family Medicine 11/16/19 [address] [place] [phone] documented as of this encounter
--- OUTSIDE RECORDS SUMMARY | 2022-08-31 12:38 | XMS_ITS | Encounter Summary ---
:1995 Author Organization [facility] Address [address] [place] [address] Care Team Providers Name Role Phone Belkys Marshall APRN, C.N.P., M.S. Primary Care Provider +1- [phone] Reason for Visit Outpatient (Routine) - Closed Specialty Diagnoses / Procedures Referred By Contact Refer red To Contact Dermatology Diagnoses Crohn's Disease (HCC) [facility] Jacky MartinezB.S. [address] [place] [address] [phone] Referral ID Status Reason Start Date Expiration Date Visits Requ ested Visits Authorized [id number] Closed 04/14/2020 04/14/2021 1 1 Encounter Details Date Type Department Care Team Description 05/25/2020 Comprehensive Visit Department of Tatiana Lebron, Anthony ozuna (Primary Dx); Dermatology in M.D. Crohn's Disea se (HCC); [place], [place] Keratosis Seborrheic; [address]; [place], [place] Nevi Multiple; [phone] Lesion Nipple [phone] Social History Tobacco Use Types Packs/Day Years [...] 1 to 4 times per year 11/11 rastafarian services? Do you belong to any clubs or Yes 11/23/2021 organizations such as synagogue groups, unions, fraResultly or athletic groups, or school groups? How [...] documented as of this encounter Consult Notes Tatiana Lebron M.D. - 05/25/2020 10:00 AM CDT [facility] REFERRED BY Juan Jane M.B.B.S. [address] [place] [phone] Supervised by: Dr. Morelos Patient seen and discussed with supervising network consultant, Dr. Morelos, who evaluated the patient and concurs with the assessment and plan. Correspondence to Dr. lebron. CHIEF COMPLAINT / REASON FOR VISIT Skin lesion HISTORY OF PRESENT ILLNESS Ms. Laurel Mcdonald is a 25 y.o. female who presents today for the above concerns. The patient has a history of Crohn's previously treated with adalimumab and infliximab and now on Ustekinumab andMercaptopurine . She presents for a 1st time skin evaluation. Today Ms. Mcdonald notes the lesion on the right lateral nipple that has been present since early January. It has darkened in appearance and is occasionally painful and itchy. She notes that the site hasdrained a yellowish fluid 1-2 times. She denies any drainage from the nipple duct, breast lumps or breast tenderness. The patient has a history of breast adenomas that have been removed in the past. Her last mammogram was approximately 2 years ago and she is due for another mammogram this fall. She has no personal or family history of breast cancer. Ms. Mcdonald denies any involvement of the left breast. At the left nasal labial fold, she notes a new dark skin lesion that is asymptomatic, unchanging, and has not been biopsied before. Lastly she notes a lesion on the left inner thigh that has been present for many years and is unchanging. He does not recall trauma at that site. Otherwise the patient denies other new, changing, painful, or itching skin lesions. Ms. Mcdonald reports a history of sun exposure. The patient tries to be diligent with photoprotective measures. Ms. Mcdonald does not report any systemic symptoms and has no other questions or concerns. PAST MEDICAL HISTORY No history of skin cancer or breast cancer FAMILY HISTORY No family history of melanoma or breast cancer Allergies Allergen Reactions ??? Codeine GI intolerance ??? Topiramate Other (see comments) PHYSICAL EXAM General: Well appearing and in no acute distress. Psych: Pleasant. Appropriate mood and affect Neuro: Awake and alert. Moves all four extremities. Eyes: No scleral injection or icterus. No eyelid abnormalities. Respiratory: Breathing easily on room air. Cardio: Appears well perfused. No lower extremity edema. Skin: I have examined the scalp, face, neck, chest, abdomen, back, bilateral upper extremities, bilateral lower extremities, and buttocks. Exam is notable for the following: Ramos type II skin. Nurse manager service desk: Luz and Karissa were present for the exam. At the right handle approximate 2 mm slightly raised papule with overlying crust, and otherwise normal nipple architecture. No discharge upon palpation, erythema, or subcutaneous nodules. No asymmetry of right breast compared to left. At the left nasolabial fold, small waxy stuck on hyperpigmented papule. At the left inner thigh, small scar papule. At the right 3rd finger right 4th toe, small verrucal papule. Scattered on the trunk and ext remities are several brown to dark brown pigmented macules of varying size, uniform color and pigmentation. Several of these were examined under dermoscopy revealing benign pigment morphology. ASSESSMENT / PLAN #1 Crusted papule on the lateral right nipple On today's examination, there appears to be a crusted papule on the lateral portion of her nipple without discharge. On the differential includes nipple adenoma, epidermoid cyst adnexal neoplasms, and granular cell tumor. It is less likely to be paget disease or a metastatic carcinoma given the lack of new nipple inversion, nodulation, induration, enlargement, or bleeding. The patient is due for a mammogram this fall. We will first discuss the case with one of our expert breast patient care coordinator before considering biopsy or further imaging modalities. Photographs with dermoscopy were obtained at this time. We will contact the patient to further discuss treatment. #2 Seborrheic keratosis, left nasal labial fold #3 Scar, left eye The benign nature of the skin lesion(s) was discussed with the patient. No treatment is required. I recommend continued observation. Should symptoms or changes develop related to this condition, I would recommend a return visit for reassessment. #3 Verruca vulgaris, right 3rd finger and right 4th toe Patient preferred to have this treated. After explaining the procedure, discussing the associated risks, benefits, and alternatives, and obtaining verbal informed consent, the lesion(s) underwent treatment with liquid nitrogen cryotherapy in the standard fashion. Wound care was discussed. Patient offered educational materials. #4 Multiple benign appearing nevi None of the patient's nevi reach the clinical threshold for biopsy. Recommend continued sun protection, self-skin examinations, and observation. Should any of the patient's nevi change in size, color, texture, or shape or develop symptoms such as itching or bleeding, recommend an immediate return visit for reassessment. The patient expresses understanding and is in [...] patient/guardian of patient expressed understanding of thecontent. Tatiana Lebron M.D. Associated attestation - Mohan Morelos M.D. - 05/25/2020 12:28 PM CDT I saw and evaluated the patient (exam was limited to the right nipple lesion of concern below), participating in the mckinnon portions of the service. I reviewed the resident???s note. I agree with the resident???s findings and plan. I was present for the critical portion and immediately available for the entire procedure. Mohan Morelos M.D. documented in this encounter Plan of Treatment Not on filedocumented as of this encounter Visit Diagnoses Diagnosis Photodamage - Primary Crohn's Disease (HCC) Keratosis Seborrheic [place] Nevi Multiple Lesion Nipple documented in this encounter Care Teams Mobile Device Developer Relationship Specialty Start Date End Date Belkys Marshall, KARL, C.N.P., M.S. PCP - General Family Medicine 11/16/19 [address] [place] [address] documented as of this encounter
--- OUTSIDE RECORDS SUMMARY | 2022-08-31 12:38 | XMS_ITS | Encounter Summary ---
:1995 Author Organization [facility] Address [address] [place] [address] Care Team Providers Name Role Phone Belkys Marshall APRN C.N.P., M.S. Primary Care Provider +1- [phone] Encounter Details Date Type Department Care Team Description 02/10/2020 Specialty Pharmacy [facility] Rigoberto Brown, [address] Varsha Jansen Pharm.D., [place] [address] [address] [place] [address] [place] [address] Social History Tobacco Use Types Packs/Day [...] this encounter Miscellaneous Notes Telephone Encounter - Rigoberto Brown, Pharm.D., R.Ph. - 02/11/2020 4:06 PM CDT SUBJECTIVE REASON FOR VISIT Specialty pharmacy reassessment of patient's medication knowledge, adherence, and side effects via patient reported questionnaire. Reassessment questions were asked via phone by a patient med care manager. (reviewed at or around patient requested refill ) HISTORY OF PRESENT ILLNESS Ms. Laurel Mcdonald is a 25 y.o. female, who is followed by the specialty pharmacy service for Stelara (ustekinumab). (Indication:Crohn's disease) Patient reported reassessment questions and responses: Informant: patient Patient reported being ___ with understanding medication(s) recieved from [facility]: excellent Patient Reported X Missed Doses in the Last Month: 0 Reasons for Non-Adherence: no problems identified Side Effects Requiring Attention: No Patient reported ___ with following their treatment plan on a scale from 1-5 (1 being none and 5 being excellent confidence): excellent confidence OBJECTIVE Lab Results Component Value Date WBC 7.8 01/18/2020 WBC 6.1 12/23/2018 WBC 10.5 (H) 08/08/2018 ASSESSMENT / PLAN 1. Medication Knowledge and Adherence In reference to the patient reported information above and reviewing refill history in the [facility] record. The patient displays appropriate medication knowledge. No adherence issues identified. 2. Medication Side effects/Adverse Events In reference to the patient reported information above: Patient reports no medication side effects requiring attention from pharmacy. I do note that she had some interaction with family medicine 01/18/2020 and wasn't feeling well. She did not indicate this at time of current refill. No reported adverse drug reactions, allergic reactions, overdoses or medication errors. 3. Effectiveness Effectiveness difficult to determine at this early stage, focusing on adherence and side effects at this time. Plan to send [id number] questionnaire for 6 month reassessments. 4. Summary and continued Goals of therapy Based [...] high risk by MCSP definition. Follow-up: 2 month(s) Rigoberto Brown PharmSidra., R.Ph. documented in this encounter Plan of Treatment Not on filedocumented as of this encounter Visit Diagnoses Not on filedocumented in this encounter Care Teams Art Psychotherapist Relationship Specialty Start Date End Date Belkys Marshall APRN, C.N.P., M.S. PCP - General Family Medicine 11/16/19 [address] [place] [address] documented as of this encounter
--- OUTSIDE RECORDS SUMMARY | 2022-08-31 12:38 | XMS_ITS | Encounter Summary ---
:1995 Author Organization [facility] Address [address] [place] [address] Care Team Providers Name Role Phone Belkys Marshall APRN, C.N.P., M.S. Primary Care Provider +1- [phone] Reason for Visit Outpatient (Routine) - Closed Specialty Diagnoses / Procedures Referred By Contact Refer red To Contact Preventive Medicine Diagnoses Crohn's Disease (HCC) [facility] Jacky MartinezB.S. [address] [place] [phone] Referral ID Status Reason Start Date Expiration Date Visits Requ ested Visits Authorized [id number] Closed 04/14/2020 04/14/2021 1 1 Encounter Details Date Type Department Care Team Description 04/29/2020 Comprehensive Visit Section of PreventiveIrvin Barba ra Counseling Preventive (Primary Dx); Transportation and KARL Otero, Crohn's D isease (HCC) Occupational Medicine C.N.P., D. N.P. in [address] [place] [phone] [place], [place] [phone] (Work) [phone] Social History Tobacco Use Types Packs/Day Years [...] or relatives? How often do you attend mu-ism or 1 to 4 times per year 11/11 jewish services? Do you belong to any clubs or Yes 11/23/2021 organizations such as mu-ism groups, unions, fraternal or athletic groups, or [...] documented as of this encounter Consult Notes Noemi Linares, KARL, C.N.P. - 04/29/2020 1:00 PM CDT Immunization Consultation The patient presents for evaluation of recommended immunizations. This visit included a review of adult immunizations using the CDC Adult Vaccine Quiz https://www2.cdc.gov/nip/adultimmsched/ accessed on today's date. Laurel Mcdonald is a 25 y.o. female who does not plan on traveling outside of the [place] in the near future. The patient does have a weakened immune system due to illness or medications. The patient denies HIV infection. She is not a first year college student living in a dormitory or a new recruit. She is not a resident of a halfway or chronic-care facility. 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 Comprehensive review of the past medical history revealed the following conditions pertinent to immunization recommendations: Rheumatoid or other arthritis on immune suppressive medications, Mercaptorpurine (Purinethol) daily for her Crohn's disease The patient endorses no risks that may benefit from additional immunizations. Allergies Allergies Allergen Reactions ??? Codeine GI intolerance ??? Topiramate Other (see comments) Documented Immunizations Immunization History Administered Date(s) Administered ??? 4vHPV (discontinued) 10/23/2006, 07/21/2007, 10/13/2007 ??? DTaP-IPV 03/17/1998, 04/17/1999 ??? DTaP-IPV/Hib (Pentacel) 1994, 1994, 05/21/1997 ??? HepA Pediatric/Adolescent 06/24/2006, 07/21/2007 ??? HepB Pediatric/Adolescent 1994, 01/28/1995, 09/28/2004 ??? Hib (PRP-T) (ACTHIB, HIBERIX) 05/24/1995 ??? Influenza TIV (IM) 11/20/2012 ??? Influenza, Injectable, Quadrivalent 07/22/2017 ??? Influenza, Seasonal, Injectable 11/20/2012 ??? Influenza, Unspecified 11/20/2012, 10/27/2013, 08/06/2016 ??? MCV4 (Menveo) 10/23/2006, 04/24/2012 ??? MMR 05/24/1995, 04/17/1999 ??? Tdap 06/24/2006, 04/17/2016 ??? PATRICIA 12/13/2003 ??? influenza vaccine quad (FLUZONE/FLUARIX) (6 months and older)(PF) 10/27/2013, 08/17/2014, 11/07/2015, 08/06/2016, 09/15/2018, 09/08/2019 Past Medical and Surgical History were reviewed. Impression, Report Plan 1. Immunization review. After thorough review considering the patient's immunization record, medical history, and ongoing risk factors, the following vaccines are ordered today: Pneumonia vaccine with PCV13 Pneumonia vaccine with PPSV23 The following vaccines are recommended in the future Pneumonia vaccine - PCV13 now, followed in 8 weeks by PPSV23 and a second PPSV23 5 years later. All immunization related questions were answered. The patient understands and agrees with the plan. Associated attestation - Amanda Bryan APRN, C.N.P., D.N.P. - 04/29/2020 2:55 PM CDT I reviewed this patient with Noemi Linares APRN [employer] student. I participated in the Medical Decision Making. I reviewed her note and agree with the Findings, Assessment, and Plan. documented in this encounter Plan of Treatment Not on filedocumented as of this encounter Visit Diagnoses Diagnosis Counseling Preventive - Primary Crohn's Disease (HCC) documented in this encounter Care Teams Mid Level Game Designer Relationship Specialty Start Date End Date Belkys Marshall APRN, C.N.P., M.S. PCP - General Family Medicine 11/16/[address] [place] [address] documented as of this encounter
--- OUTSIDE RECORDS SUMMARY | 2022-08-31 12:38 | XMS_ITS | Encounter Summary ---
:1995 Author Organization [facility] Address [address] [place] [address] Care Team Providers Name Role Phone Belkys Marshall APRN C.N.P., M.S. Primary Care Provider +1- [phone] Reason for Visit Reason Comments COVID Inquiry Encounter Details Date Type Department Care Team Description 05/24/2020 Clinical Communication Department of Tatiana Perez COV ID Inquiry Dermatology in [place], [place] [address] [place] [phone] Social History Tobacco Use Types Packs/Day Years [...] this encounter Miscellaneous Notes Telephone Encounter - CassydandreDina - 05/24/2020 3:20 PM CDT ([facility] and [facility] locations only: If the patient is not having symptoms and is requesting COVID-19 Nasal Swab testing only, use the process listed in the COVID-19 Patient Requesting COVID PCR Test OTG COVID-19 [place] Patient Requesting COVID PCR Test). 1. Do [...] last 14 days? no Route reply to: catrachita hugo basil desk Scheduling Contact Number: [phone] documented in this encounter Plan of Treatment Not on filedocumented as of this encounter Visit Diagnoses Not on filedocumented in this encounter Care Teams Strength And Conditioning Coach Relationship Specialty Start Date End Date Belkys Marshall APRN, C.N.P., M.S. PCP - General Family Medicine 11/16/19 [address] [place] [address] documented as of this encounter
--- OUTSIDE RECORDS SUMMARY | 2022-08-31 12:38 | XMS_ITS | Encounter Summary ---
:1995 Author Organization [facility] Address [address] [place] [address] Care Team Providers Name Role Phone Belkys Marshall APRN, C.N.P., M.S. Primary Care Provider +1- [phone] Encounter Details Date Type Department Care Team Description 03/08/2020 Hospital Encounter Department of Belkys Marshall For Laboratory Medicine KARL Mitchell, Venereal Disease and Pathology, C.N.P., M.S. [facility] [place] [address] [place] [address] [address] [address] [place] [phone] [place], [place] (Work) [phone] Social History Tobacco Use [...] 1 to 4 times per year 11/11 catholic services? Do you belong to any [...] Name Priority Date/Time Associated Diagnosis Comme nts HIV-1/-2 AG AND AB Routine 03/08/2020 3:38 PM Screening For Re sults for this SCREEN, PLASMA CDT Venereal Disease procedure are in the results section. SYPHILIS TOTAL AB Routine 03/08/2020 3:38 PM Screening For Res ults for this W/ REFLEX S CDT Venereal Disease procedure a re in the results section. documented in this encounter Results Syphilis Total Ab w/ Reflex, Serum (03/08/2020 3:38 PM CDT) [facility] Method Time Signature Syphilis Nonreactive Nonreactive 03/09/2020 [facility] Total Ab w/ 8:58 AM CDT Reflex Comment: No serologic evidence of infection with T. pallidum (syphilis). ??Repeat testing may be cons idered in patients with suspected acute or primary syphilis in 2-4 weeks. For additional information on interpreta tion of the syphilis reverse algorithm and resul ts, see: [email or web address] it-[email or web address]_[email or web address]_Algorithm.p df Specimen Anatomical Collection Method Collection Time Receive d Time (Source) Location / / Volume Laterality Blood (Blood, 03/08/2020 3:38 PM 03/08/20 20 8:18 Venous) CDT PM CDT Belkys Marshall APRN, C.N.P., M.S. LAB BLOOD ADD-ON Performing Organization Address City/State/ZIP Code Phon e Number [facility] [address] [place], [place] [address] [place] [address] C[facility] [place] [address] Laboratory Medicine and Pathology [address] [place] HIV-1/-2 Ag and Ab Screen, Plasma (03/08/2020 3:38 PM CDT) athologist Signature HIV-1/-2 Ag Negative Negative 03/08/2020 [facility] and Ab Screen, 10:37 PM CDT [...] 03/08/20 20 9:30 Venous) CDT PM CDT Adrianna Sequeira APRN.Mame., M.S. LAB MICROBIOLOGY - B LOOD ORDERABLES Performing Organization Address City/State/ZIP Code Phon e Number [facility] [address] [place] [address] [place] [address] Laboratory Medicine and Pathology [facility] [place] documented in this encounter Visit Diagnoses Diagnosis Screening For Venereal Disease documented in this encounter Care Teams Research Pharmacist Relationship Specialty Start Date End Date Belkys Marshall APRN, C.N.Mame., M.S. PCP - General Family Medicine 11/16/[address] [place] [address] documented as of this encounter
--- OUTSIDE RECORDS SUMMARY | 2022-08-31 12:38 | XMS_ITS | Encounter Summary ---
:1995 Author Organization [facility] Address [address] [place] [address] Care Team Providers Name Role Phone Belkys Marshall APRN C.N.Mame., M.S. Primary Care Provider +1- [phone] Encounter Details Date Type Department Care Team Description 04/07/2020 Clinical Communication Division of Prescheduling, Gastroenterology in [place], [place] [address] [place] [address] Social History Tobacco Use Types Packs/Day [...] this encounter Miscellaneous Notes Telephone Encounter - Morena See - 04/07/2020 9:26 AM CDT In the past 30 days have you had a swab for COVID that tested positive? no Route reply to: h pod 1 Scheduling Contact Number: [phone] documented in this encounter Plan of Treatment Not on filedocumented as of this encounter Visit Diagnoses Not on filedocumented in this encounter Care Teams Recruiter Manager Relationship Specialty Start Date End Date Belkys Marshall, KARL, C.N.P., M.S. PCP - General Family Medicine 11/16/19 [address] [place] [address] documented as of this encounter
--- OUTSIDE RECORDS SUMMARY | 2022-08-31 12:38 | XMS_ITS | Encounter Summary ---
:1995 Author Organization [facility] Address [address] [place] [address] Care Team Providers Name Role Phone Belkys Marshall APRN, C.N.P., M.S. Primary Care Provider +1- [phone] Encounter Details Date Type Department Care Team Description 04/29/2020 Anesthesia Event Division of Gastroenterology Mame Anaya in [facility] KARL, JUICE BAR TEAM MEMBER [address] [place] [address] [address] [place] [address] [place], [place] [phone] Anesthesia Record Procedure Summary Procedure Name Responsible Anesthesia Start Anesthesia Stop Anesthesiologist Time Time COLONOSCOPY Miguelito Anaya APRN, JUICE BAR TEAM MEMBER 04/29/20 0930 04/29 1041 RESTRICTED Events Date Time Event Comment 04/29/2020 0925 In Room 0930 An Start Machine/Equipmen t Checked Infection Precautions Foll owed Procedure/Site Verified NPO Sta tus Verified Supine Standard ASA Mon itors Applied 0936 Turnover to Proceduralist 0938 Proc Start 1034 Proc Fin 1040 Turnover to ANE Staff 1041 an stop data 1041 An End I completed my h andoff to the receiving staff during [facility] we 1. Identified the patient 2. Ident ified the responsible provider 3. Revi ewed the pertinent medical history 4. Discu ssed the surgical course 5. Reviewed intra-o p anesthesia management and issues during an esthesia 6. Set expectations for post-procedure period 7. Allowed opportun ity for questions and acknowledgement of understanding. Name Total fentanyl injection 50 mcg/mL 75 mcg lidocaine 2% (mg) injection 60 mg propofol 10 mg/mL injection 100 mg propofol 10 mg/mL infusion 666.75 mg ePHEDrine PF 5 mg/mL syringe injection 10 mg phenylephrine 100 mcg/mL injection 100 mcg Lactated Ringers Free Drip 900 mL Agents No agents on file. Blood No blood administrations on file. Lines, Drains, and Airways Type Details Placement Removal Peripheral IV Placement Date: 04/29/20; 04/29/20918 by [place]le[place], 09/21/201251 by Placement Time: 918; Donell Balderrama J ustin J, Catheter Size: 20 G; Zach Jones . Orientation: Right; Location: Forearm; Site Prep: Alcohol; Insertion Attempts: 1; Removal Date: 09/21/20; Removal Time: 1251 documented in this encounter Social History Tobacco [...] or relatives? How often do you attend yarsanism or 1 to 4 times per year 11/11 jehovah's witness services? Do you belong to any clubs or Yes 11/23/2021 organizations such as yarsanism groups, unions, fraternal or athletic groups, or [...] encounter OR Notes Anesthesia Postprocedure Evaluation - Miguelito Anaya APRN, CRNA - 04/29/2020 10:45 AM CDT Patient: Laurel Mcdonald Procedure Summary Date: 04/29/20 Room / Location: Division of Gastroenterology in [place], [place] Anesthesia Start: 929 Anesthesia Stop: 1040 Procedure: COLONOSCOPY RESTRICTED Diagnosis: Crohn's Disease (HCC) Scheduled Providers: Julita Parrish M.D. Responsible Provider: Miguelito Anaya APRN, CRNA Anesthesia Type: MAC ASA Status: 2 Anesthesia Type: MAC Last vitals Vitals Value Taken Time BP Temp Pulse Resp SpO2 Please reference Vitals flowsheet for most recent vital signs. Anesthesia Post Evaluation Patient Disposition: dismissal Cardiovascular status: hemodynamics (HR & BP) acceptable Respiratory status: patent airway with spontaneous effort Temperature: normothermic Oxygen requirements: room air Level of consciousness: awake Pain score: pain adequately controlled and/or at baseline Post Op nausea/vomiting: none Hydration status: euvolemic Anesthesia Preprocedure Evaluation - Miguelito Anaya APRN, CRNA - 04/29/2020 9:39 AM CDT Preprocedure Anesthesia & H&P Assessment Procedure Summary Anesthesia Start Date/Time: 04/29/20 0930 Scheduled providers: Julita Parrish M.D. Procedure: COLONOSCOPY RESTRICTED Diagnosis: Crohn's Disease (HCC) [K50.90] Location: Division of Gastroenterology in [place], [place] Pertinent components of the patient's history including current problem list, medical history, surgical history, family history, social history, medications and allergies were reviewed. Present illnessand pre-op diagnosis were confirmed. The planned surgery / procedure was verified with the patient /legal guardian. The patient's general health condition remains unchanged PROBLEM LIST Relevant Problems RESP (+) Asthma Mild Intermittent (HCC) ENDO (+) Thyroiditis Amador's GI (+) Colitis Crohn's (HCC) OBJECTIVE PHYSICAL EXAMINATION Airway (HEENT) Mallampati: II TM Distance: >3 FB Neck ROM: Full Mouth Opening: >3 cm Cardiovascular Rhythm: Regular Rate: Normal Cardiovascular Assessment: cardiovascular normal Functional Capacity: >4 METS Pulmonary Pulmonary Assessment: Clear General / Constitutional Constitutional Assessment: Normal General State of Health:: healthy appearing Neurological Neurologic Assessment:??alert Dental Dental Assessment: dentition intact ASSESSMENT / PLAN ANESTHESIA PLAN ASA: 2 Anesthesia Plan: MAC Propofol and fentanyl Patient seen and allergies reviewed, anesthesia plan and risks discussed directly with patient /legal guardian or through an per diem interpreter. The use of blood products not discussed Approval to Proceed: approved for anesthesia documented in this encounter Plan of Treatment Not on filedocumented as of this encounter Visit Diagnoses Not on filedocumented in this encounter Administered Medications Inactive Administered Medications - up to 3 most recent administrations Medication Order MAR Action Action Date Dose Rate Site ePHEDrine (PF) injection Given 04/29/2020 10:19 AM CDT 5 mg As needed, Starting on Sat04/29/20 at 1019, Anesthesia Intra-op Given 04/29/2020 10:15 AM CDT 5 mg fentaNYL injection (SUBLIMAZE) Given 04/29/2020 10:26 AM CDT 25 mcg intravenous, As needed, Starting on Sat04/29/20 at 0935, Anesthesia Intra-op Given 04/29/2020 9:44 AM CDT 25 mcg Given 04/29/2020 9:35 AM CDT 25 mcg lactated ringers New Bag 04/29/2020 9:25 AM CDT intravenous, Continuous Infusion: Per Instructions PRN, Starting on Sat04/29/20 at 0925, Anesthesia Intra-op lidocaine (PF) (cardiac) injection Given 04/29/2020 9:34 AM CDT 60 mg intravenous, As needed, Starting on Sat04/29/20 at 0934, Anesthesia Intra-op phenylephrine injection Given 04/29/2020 10:30 AM CDT 100 mcg As needed, Starting on Sat04/29/20 at 1030, Anesthesia Intra-op propofol 10 mg/mL infusion Rate/Dose 04/29/2020 125 mcg/kg/min 47.6 mL/hr (DIPRIVAN) Change 10:24 AM CDT intravenous, Continuous Infusion: Per Instructions PRN, Starting on Sat04/29/20 at 0935, Anesthesia Intra-op Rate/Dose Change 04/29/2020 10:08 AM CDT 150 mcg/kg/min 57.2 mL/hr New Bag 04/29/2020 9:35 AM CDT 200 mcg/kg/min 76.2 mL/hr propofoL injection (DIPRIVAN) Given 04/29/2020 9:35 AM CDT 50 mg intravenous, As needed, Starting on Sat04/29/20 at 0934, Anesthesia Intra-op Given 04/29/2020 9:34 AM CDT 50 mg documented in this encounter Care Teams Paint Tester Relationship Specialty Start Date End Date Belkys Marshall, KARL, C.N.P., M.S. PCP - General Family Medicine 11/16/19 [address] [place] [address] documented as of this encounter
--- OUTSIDE RECORDS SUMMARY | 2022-08-31 12:38 | XMS_ITS | Encounter Summary ---
:1995 Author Organization [facility] Address [address] [place] [address] Care Team Providers Name Role Phone Belkys Marshall APRN C.N.P., M.S. Primary Care Provider [phone]- [phone] Reason for Visit Reason Onset Date Comments Outpatient COVID-19 Testing 05/26/2020 Encounter Details Date Type Department Care Team Description 05/26/2020 External Outreach Department of Family Post, Donato An, Infection Upper Medicine, [employer] [facility] (Primary Clinic [place], [address] [place] [address]) [place] [facility] in [address] [phone] [place], [place] [address]Y [address] (Work) [place], [place] [phone] (Fax) [phone] Social History Tobacco Use Types Packs/Day Years [...] documented as of this encounter Progress Notes Ambika Viveros, R.N. - 05/26/2020 9:48 AM CDT Encounter created for the drive-through COVID-19 testing. documented in this encounter Plan of Treatment Not on filedocumented as of this encounter Procedures Procedure Name Priority Date/Time Associated Diagnosis Comme nts SARS CORONAVIRUS-2, Routine 05/26/2020 5:12 PM Infection Upper Results for this PCR CDT Respiratory procedure are i n the results section. documented in this encounter Results SARS Coronavirus-2, PCR Symptomatic (05/26/2020 5:12 PM CDT) [facility] Method Time Signature SARS Swab, 05/27/2020 DTL Coronavirus-2 Nasopharynx 11:44 AM Source CDT SARS Undetected Undetected 05/27/2020 DTL Coronavirus-2 11:44 AM , PCR CDT Comment: SARS-CoV-2 RNA absent. This result does not rule out COVID-19 in the patient, as the sensitivity of the test depends o n the timing of the specimen collection and quality of the specimen. Result should be correlated with patient's history and clinical presentat ion. ----ADDITIONAL INFORMATION---- This test was developed and its performa nce characteristics determined by [facility] in a manner co nsistent with CLIA requirements. Independent review by the U.S. Food and Drug Administration is pending. Visit the CDC website: https://www.cdc.gov/coronavirus/ ?? for the most recent guidelines on [place] virus testing. Fact Sheet for Healthcare Providers: (https://www.[place]/it-StyleTrekil es/ Provider_Fact_Sheet_for_[facility]_COVI D-19.pdf) Fact Sheet for Patients: (https://www.[place]/itLocationmmfil es/ Patient_Fact_Sheet_for_COVID-19.pdf) Specimen Anatomical Collection Method Collection Time Receive d Time (Source) Location / / Volume Laterality Varies 05/26/2020 5:12 PM 0 7:21 (Nasopharynx) CDT PM CDT Donato Ruff M.D. LAB MICROBIOLOGY - GENERAL O RDERABLES Performing Organization Address City/State/ZIP Code Phon e Number [facility] - [address] [place] [address] [place] [address] Laboratories-[facility] 200 [facility] documented in this encounter Visit Diagnoses Diagnosis Infection Upper Respiratory - Primary documented in this encounter Additional Health Concerns Infection Onset Date Last Indicated Resolved Time COVID19 Pending 05/26/2020 05/26/2020 05/27/2020 11:45 AM CDT documented as of this encounter Care Teams Toe Puncher Relationship Specialty Start Date End Date Belkys Marshall APRN, C.N.P., M.S. PCP - General Family Medicine 11/16/[address] [place] [address] documented as of this encounter
--- OUTSIDE RECORDS SUMMARY | 2022-08-31 12:38 | XMS_ITS | Encounter Summary ---
:[address] [facility] Address [address] [place] [address] Care Team Providers Name Role Phone Belkys Marshall APRN, C.N.P., M.S. Primary Care Provider +1- [phone] Reason for Visit Reason Comments COVID Nurse Line Encounter Details Date Type Department Care Team Description 05/27/2020 Clinical Communication Breast Diagnostic [facility] in [place], [place] C.N.P. [address] [place] [address] [place] [phone] Social History Tobacco Use Types Packs/Day Years [...] this encounter Miscellaneous Notes Telephone Encounter - Gayla Evangelista - 05/27/2020 1:34 PM CDT ([facility] and [facility] locations only: If the patient is not having symptoms and is requesting COVID-19 Nasal Swab testing only, use the process listed in the COVID-19 Patient Requesting COVID PCR Test OTG COVID-19 [place] Patient Requesting COVID PCR Test). In the [...] documented as of this encounter Care Teams Model Maker Plaster Relationship Specialty Start Date End Date Farrow, Belkys Mitchell APRN, C.N.Mame., M.S. PCP - General Family Medicine 11/16/19 [address] [place] [address] documented as of this encounter
--- OUTSIDE RECORDS SUMMARY | 2022-08-31 12:38 | XMS_ITS | Encounter Summary ---
:1995 Author Organization [facility] Address [address] [place] [address] Care Team Providers Name Role Phone Belkys Marshall APRN, C.N.P., M.S. Primary Care Provider +1- [phone] Reason for Referral Outpatient (Routine) - Closed Specialty Diagnoses / Procedures Referred By Contact Refer red To Contact Dermatology Diagnoses [facility] Martinez[facility] [address] [place] [phone] Referral ID Status Reason Start Date Expiration Date Visits Requ ested Visits Authorized [id number] Closed 04/14/2020 04/14/2021 1 1 utpatient (Routine) - Closed Specialty Diagnoses / Procedures Referred By Contact Refer red To Contact Preventive Medicine Diagnoses [facility]'s [facility] Jacky MartinezB[facility] [address] [place] [phone] Referral ID Status Reason Start Date Expiration Date Visits Requ ested Visits Authorized [id number] Closed 04/14/2020 04/14/2021 1 1 utpatient (Routine) - Closed Specialty Diagnoses / Procedures Referred By Contact Refer red To Contact Diagnoses [facility]'s [facility]CC[facility] Procedures Colonoscopy restricted M.B.B.S. [address] [place] [phone] Referral ID Status Reason Start Date Expiration Date Visits Requ ested Visits Authorized [id number] Closed 04/14/2020 04/14/2021 1 1 Reason for Visit Appointment Request (Routine) - Closed Specialty Diagnoses / Referred By Contact Referred To Procedures Contact Gastroenterology and Diagnoses Crohn's Disease (HCC) Reji Whitman, Hepatology [facility] [address] [place] [phone] Referral ID Status Reason Start Date Expiration Date Visits Requ ested Visits Authorized [id number] Closed 01/18/2020 01/17/2021 1 1 Encounter Details Date Type Department Care Team Description 04/14/2020 Office Visit Division of Lucinda Crohn's Disea se (HCC) Gastroenterology in [place], [place] M.B.B.S. [address] [place] [address] [place] [phone] [place], [place] [phone] Social History Tobacco Use Types Packs/Day Years [...] or relatives? How often do you attend rastafarian or 1 to 4 times per year 11/11 bahai services? Do you belong to any clubs or Yes 11/23/2021 organizations such as rastafarian groups, unions, fraternal or athletic groups, or [...] Taken Comments Blood Pressure - - Pulse - - Temperature - - Respiratory Rate - - Oxygen Saturation - - Inhaled Oxygen Concentration - - Weight 65.9 kg (145 lb 4.5 oz) 04/14/2020 3:15 PM CDT Height 166 cm (5' 5.35) 04/14/2020 3:15 PM CDT Body Mass Index 23.92 04/14/2020 3:15 PM CDT documented in this encounter Progress Notes Juan Jane M.B.BJuliaS. - 04/14/2020 3:00 PM CDT GASTROENTEROLOGY & HEPATOBILIARY CONSULT Date/Time: 04/14/2020 2:55 PM CDT Patient Name: Laurel Mcdonald : 1995 Subjective: HPI: Laurel Mcdonald is a 25 y.o. female with PMH of Crohn disease who presents for follow-up Briefly, Ms. 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 Murphy, Crohn colitis diagnosed in February 2017 Initially treated with infliximab, however she developed antibodies and was switched to adalimumab and azathioprine but could not tolerate azathioprine due to side effects Colonoscopy in July 2018 showed pseudopolyps, and biopsies showed mild active chronic colitis on the right and inactive chronic colitis in the left, and labs showed antibodies to adalimumab it lowtrough levels Therefore was switched to ustekinumab October 2018 Last assessed in January 2019 MR enterography unremarkable August 2019 ultrasound did show stool tiny gallbladder polyps largest 3 mm in size Most recent labs from January 2020 are unremarkable: Normal hemoglobin and platelet count without leukocytosis. Normal CMP and CRP ustekinumab levels is adequate at 6.8, with undetectable antibodies in January 2020 Currently, doing reasonably from a Crohn disease perspective No upper GI symptoms Does endorse postprandial bloating, and perhaps somewhat decreased appetite. Uses nortriptyline for nausea as well as Zofran rarely No change in weight No vomiting No obstructive-type symptoms Does endorse postprandial diarrhea soon after eating, with an INR and this is perhaps more frequent than before. Having about 2 formed bowel movements a day, no diarrhea, rarely will see blood No rectal/perianal symptoms Some abdominal cramping prior to a bowel movement, improved after Systemically, does have increasing fatigue compared to prior Is functionally very active although she is on furlough recently given immunosuppressed state Diet perkins, eats a mixed healthy diet, no obvious triggers avoids milk as she has chronically Medication perkins, is adherent on Stelara and 6 MP Is also on nortriptyline as above No ycbf-rjx-gtdkfou pain med use No supplements PHYSICAL EXAM Ht 166 cm Wt 65.9 kg BMI 23.92 kg/m?? General: Comfortable at rest, normal mood/affect. In no distress Mouth: Normal tongue, oropharynx. Well-hydrated HEENT: No palpable nodes in the neck. No palpable thyromegaly, but thyroid fullness present Abdomen: Soft, nondistended, mild tenderness to deep palpation over lower abdomen, without rebound/guarding. 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 Crohn colitis 2. Chronic immunosuppression 3. Abdominal pain After initial diagnosis in 2016, she was initially treated with infliximab, and then adalimumab, butdeveloped antibodies to both. Was switched to Ustekinumab in October 2018, and was last assessed bycolonoscopy in July 2018, and and MR enterography in January 2019 which suggested remission Symptoms perkins, she has been doing well since then, and is also using nortriptyline for nausea. Certainly, she is due for reassessment of her Crohn disease with repeat colonoscopy as well as labs including CRP given elevation in the past. Given chronic fatigue, labs will also help assess for adverse effects of chronic mercaptopurine use Will also evaluate for thyroid dysfunction per patient request Health maintenance checklist Influenza Receiving annual vaccines Pneumonia has not received: indicated for PCV13 then PPSV23 at least 8 weeks later; 2nd dose of PPSV23 after 5 years - will refer to vaccination clinic Tdap 2015 HPV 2007 MCV4 2011 Hep a 2007 Hep B 2003 MMR 1998 Varicella 2003 Not eligible for zoster Pap smears up-to-date Full skin check has not had 1, will refer to Dermatology Colonoscopy ordered under general anesthesia. She has had trouble with prep in the past, therefore have ordered 2 units of MoviPrep Not due for DEXA scan given not at high risk. Will check her vitamin-D status Getting annual PPD says part of employment Smoking never Mood (depression/anxiety) symptoms no issues with mood symptoms or poor sleep- corroborated by mother Follow based on testing over the portal. She is in agreement with the plan Josie BellSJulia Answers for HPI/ROS submitted by the patient on 04/13/2020 Fatigue: Yes Night sweats: Yes No eye issues: Yes No ENT issues: Yes Rapid or fluttering heart beats: Yes Swelling in the legs or feet: Yes No respiratory issues: Yes Abdominal (belly) pain or cramping: Yes No muscle/bone issues: Yes No skin issues: Yes No neurologic issues: Yes Excessive daytime sleepiness/tiredness: Yes No blood/lymph issues: Yes No urinary/reproductive issues: Yes documented in this encounter Plan of Treatment Scheduled Referrals Name Type Priority Associated Order Schedule Diagnoses Preventive Medicine - Outpatient Referral Routine Crohn's Dise ase Expected: Immunization consult ([facility]) 020 (clinic) (Approximate), Expires: 04/14/2023 Dermatology - Skin Outpatient Referral Routine Crohn's Disease Expected: check consult ([facility]) 04/14/2020 (clinic) (Approximate), Expires: 04/14/2023 documented as of this encounter Results Thyroid Function [place] (04/14/2020 4:07 PM CDT) athologist [facility] TSH, Sensitive 1.7 0.3 - 4.2 04/14/2020 DTL mIU/L 6:17 PM CDT Specimen Anatomical Collection Method Collection Time Receive d Time (Source) Location / / Volume Laterality Blood (Blood, 04/14/2020 4:07 PM 04/14/20 20 5:06 Venous) CDT PM CDT Juan RicoB.S. LAB BLOOD ADD-ON Performing Organization Address City/[facility] Phon e Number [facility] - [address] CRP (C-Reactive Protein) (04/14/2020 4:07 PM CDT) athologist [facility] C-Reactive <3.0 <=8.0 mg/L 04/14/2020 DTL Protein (CRP), 6:17 PM CDT S Specimen Anatomical Collection Method Collection Time Receive d Time (Source) Location / / Volume Laterality Blood (Blood, 04/14/2020 4:07 PM 04/14/20 20 5:06 Venous) CDT PM CDT Juan RicoB.S. LAB BLOOD ADD-ON Performing Organization Address City/[facility] Phon e Number [facility] - [address] (ABNORMAL) Comprehensive Metabolic Panel (04/14/2020 4:07 PM CDT) P athologist Signature Potassium, S 4.4 3.6 - [...] 04/14/2020 DTL Black/ mL/min/BSA 5:32 PM CDT [place] Comment: ----ADDITIONAL INFORMATION---- Estimated GFR calculated using [...] 0.4 <=1.2 mg/dL 04/14/2020 5:32 PM CDT DT Specimen Anatomical Collection Method Collection Time Receive d Time (Source) Location / / Volume Laterality Blood (Blood, 04/14/2020 4:07 PM 04/14/20 20 5:06 Venous) CDT PM CDT Juan RicoBJuliaSJulia LAB BLOOD ADD-ON Performing Organization Address City/[facility] Phon e Number [facility] - [address] [place], [place] [address] [place] [address] Laboratories-[facility] [address] 25-Hydroxyvitamin D2 and D3 (04/14/2020 4:07 PM CDT) P athologist Signature 25-Hydroxy D2 <4.0 ng/mL 04/15/2020 [facility] 10:49 PM CDT 25-Hydroxy D3 38 ng/mL 04/15/2020 [facility] 10:49 PM CDT 25-Hydroxy D 38 ng/mL 04/15/2020 [facility] Total 10:49 PM CDT Comment: ----REFERENCE VALUE---- 25-HYDROXY D TOTAL (D2+D3) Optimum level s in the healthy population are 20-50, patients with bone disease may benefit from higher levels within this r presley. ----ADDITIONAL INFORMATION---- This test was developed and its performa nce characteristics determined by [facility] in a manner consistent with CLIA requirements. This test has not been cleared or approved by the U.[place]. [facility] d and Drug Administration. Specimen Anatomical Collection Method Collection Time Receive d Time (Source) Location / / Volume Laterality Blood (Blood, 04/14/2020 4:07 PM 04/15/20 20 8:50 Venous) CDT AM CDT Juan GalindoSJulia LAB BLOOD ADD-ON Performing Organization Address City/[facility]/ZIP Code Phon e Number [facility] [address] [place], [place] [address] [facility] [place] [address] Laboratory Medicine and Pathology [address] [...] City/State/ZIP Code Phon e Number [facility] - [address] [place], [place] [address] [facility] [place] [address] Laboratories-[facility] [address] documented in this encounter Visit Diagnoses Diagnosis Crohn's Disease (HCC) documented in this encounter Care Teams Pipefitter Relationship Specialty Start Date End Date Belkys Marshall APRN, C.N.P., M.S. PCP - General Family Medicine 11/16/19 [address] [place] [address] documented as of this encounter
--- OUTSIDE RECORDS SUMMARY | 2022-08-31 12:38 | XMS_ITS | Encounter Summary ---
:1995 Author Organization [facility] Address [address] [place] [address] Care Team Providers Name Role Phone Belkys Marshall APRN C.N.P., M.S. Primary Care Provider +1- [phone] Reason for Visit Reason Comments Med Refill Encounter Details Date Type Department Care Team Description 03/13/2020 [facility] [place], [place] Kasey [address] [place] [address] [place] [address] [place], [place] [phone] (Wo rk) Social History Tobacco Use Types [...] this encounter Miscellaneous Notes Telephone Encounter - Kinsey Monsalve - 03/14/2020 8:41 AM CDT As noted on last prescription, primary to fill documented in this encounter Plan of Treatment Not on filedocumented as of this encounter Visit Diagnoses Diagnosis Nausea Crohn's Disease (HCC) documented in this encounter Care Teams Pocket Cutter Relationship Specialty Start Date End Date Belkys Marshall APRN, C.N.P., M.S. PCP - General Family Medicine 11/16/19 [address] [place] [address] documented as of this encounter
--- OUTSIDE RECORDS SUMMARY | 2022-08-31 12:38 | XMS_ITS | Encounter Summary ---
:1995 Author Organization [facility] Address [address] [place] [address] Care Team Providers Name Role Phone Belkys Marshall APRN C.N.P., M.S. Primary Care Provider +1- [phone] Encounter Details Date Type Department Care Team [...] Associated Comments Diagnosis DERMATOLOGY IMAGE Routine 05/25/2020 11:00 Result s for this EXAM AM CDT procedure are i n the results section. documented in this encounter Results Breast(s)-Dermatology Image Exam (05/25/2020 11:00 AM CDT) Specimen (Source) Anatomical Collection Method [...] on filedocumented in this encounter Care Teams Battery Inspector Relationship Specialty Start Date End Date Belkys Marshall APRN, C.N.P., M.S. PCP - General Family Medicine 11/16/19 [address] [place] [address] documented as of this encounter
--- OUTSIDE RECORDS SUMMARY | 2022-08-31 12:39 | XMS_ITS | Encounter Summary ---
:1994 Author Organization [facility] Address [address] [place] [address] Care Team Providers Name Role Phone Belkys Marshall APRN C.N.P., M.S. Primary Care Provider +1- [phone] Encounter Details Date Type Department Care Team Description 01/19/2020 Orders Only Department of Family Vora, RENEE Hughes RN, Medicine, [facility] C.N.P., D. N.P., M.S.N. [facility], in [address] [place] [address] Claudio Hernandez [address] [place] [address] [phone] Social History Tobacco Use Types Packs/Day Years [...] on filedocumented in this encounter Care Teams Milk Pickup Truck Driver Relationship Specialty Start Date End Date Belkys Marshall APRN, C.N.P., M.S. PCP - General Family Medicine 11/16/19 [address] [place] [address] documented as of this encounter
--- OUTSIDE RECORDS SUMMARY | 2022-08-31 12:39 | XMS_ITS | Encounter Summary ---
:1994 Author Organization [facility] Address [address] [place] [address] Care Team Providers Name Role Phone Belkys Marshall APRN C.N.P., M.S. Primary Care Provider +1- [phone] Reason for Visit Reason Onset Date Comments Med Refill 11/27/2019 Encounter Details Date Type Department Care Team Description 11/27/2019 Refill Division of Gastroenterology in [facility], Med Refill [place], [place] Kasey [address] [place] [address] [place] [address] [place], [place] [phone] (Wo rk) Social History Tobacco Use Types [...] (HCC) documented in this encounter Care Teams Marine Machinist Relationship Specialty Start Date End Date Belkys Marshall APRN, C.N.P., M.S. PCP - General Family Medicine 11/16/19 [address] [place] [address] documented as of this encounter
--- OUTSIDE RECORDS SUMMARY | 2022-08-31 12:39 | XMS_ITS | Encounter Summary ---
:1994 Author Organization [facility] Address [address] [place] [address] Care Team Providers Name Role Phone Belkys Marshall APRN, C.N.P., M.S. Primary Care Provider +1- [phone] Reason for Visit Reason Onset Date Comments Follow-up 01/18/2020 Encounter Details Date Type Department Care Team Description 01/18/2020 Clinical Communication Department of Mary Blake, Follow-up Medicine, [facility] KARL, C.N.P., Clinic [facility], in D.N.P., M.S .N. [place] [address] [place] [address] Social History Tobacco Use Types Packs/Day [...] this encounter Miscellaneous Notes Telephone Encounter - Chantell Harrington R.N. - 01/18/2020 9:45 AM CDT SUBJECTIVE CHIEF COMPLAINT / REASON FOR CALL Follow-up Information Discussed Spoke with the patient about her appointment with Gayla Vora DNP. Laurel reported that she did reach out to the GI team first but no appointments were available. She will plan to keep her appointment with Gayla Vora DNP. PLAN Disposition/Recommendation: notified provider and awaiting recommendations Information/Education: patient/caller able to teach back Caller agreeable to plan of care: yes The following references were used: none documented in this encounter Plan of Treatment Not on filedocumented as of this encounter Visit Diagnoses Not on filedocumented in this encounter Care Teams Metal Slitter Relationship Specialty Start Date End Date Farrow, Belkys L, REGULATORY COMPLIANCE OFFICER, C.N.P., M.S. PCP - General Family Medicine 11/16/19 [address] [place] [address] documented as of this encounter
--- OUTSIDE RECORDS SUMMARY | 2022-08-31 12:39 | XMS_ITS | Encounter Summary ---
:1994 Author Organization [facility] Address [address] [place] [address] Care Team Providers Name Role Phone Belkys Marshall APRN C.N.PJulia, M.S. Primary Care Provider +1- [phone] Encounter Details Date Type Department Care Team Description 01/18/2020 Hospital Encounter Department of Gayla Vora Crohn's Laboratory Medicine B, KARL, C.N.P., ([facility] ) and Pathology, JoaquinaNVira., M.S.N. [facility], [address] [place] [address] in [facility] [address] [address] [phone] NE (Work) [place], [place] [phone] [address] (Fax) [phone] Social History Tobacco Use Types Packs/Day Years [...] Sig Dispensed Refills Start Date End Date ketoconazole (NIZORAL) 2 % Apply topically. 0 03/02/2020 cream mercaptopurine Take 1 tablet (50 90 tablet 1 11/17/201903/2020 (PURINETHOL) 50 mg tablet mg total) by mouth daily. Take on an empty stomach. albuterol (for_PROVENTIL Inhale 1-2 puffs. 0 04/12/201607/29/2020 HFA,VENTOLIN HFA) 90 mcg/actuation inhaler norethindrone (CHIOMA) Take 0.35 mg by 0 017 01/22/2020 0.35 mg tablet mouth. nortriptyline (PAMELOR) 25 Take 1 capsule (25 90 capsule 1 0 11/17/2019 03/14/2020 mg capsuleIndications: mg total) by mouth Nausea [...] Procedure Name Priority Date/Time Associated Comments Diagnosis CBC WITH DIFFERENTIAL, Routine 01/18/2020 11:00 Colitis Crohn' s Results for this B AM CDT (HCC) procedure are i n the results section. C-REACTIVE PROTEIN Routine 01/18/2020 11:00 Colitis Crohn's Re sults for this (CRP), S/P AM CDT (HCC) procedure are i n the results section. COMPREHENSIVE Routine 01/18/2020 11:00 Colitis Crohn's Results for this METABOLIC PANEL, S/P AM CDT (HCC) procedu re are in the results section. documented in this encounter Results CRP (C-Reactive Protein) (01/18/2020 11:00 AM CDT) P athologist Signature C-Reactive <3.0 <=8.0 mg/L 01/18/2020 DTL Protein (CRP), 2:41 PM CDT S Specimen Anatomical Collection Method Collection Time Receive d Time (Source) Location / / Volume Laterality Blood (Blood, 01/18/2020 11:00 01/18/2020 1:48 Venous) AM CDT PM CDT Gayla Vora APRN, C.N.P., D.N.P., M.S.N. LAB BLOOD ADD-ON Performing Organization Address City/State/ZIP Code Phon e Number [facility] - 200 [place], [place] [address] [place] [address] Laboratories-[facility] 200 [facility] Comprehensive Metabolic Panel (01/18/2020 11:00 AM CDT) athologist Signature Potassium, S 4.5 3.6 - 5.2 01/18/2020 DTL mmol/L 2:41 PM CDT Sodium, S 142 135 - 145 01/18/2020 DTL mmol/L 2:41 PM CDT Chloride, S 102 98 - 107 01/18/2020 DTL mmol/L 2:41 PM CDT Bicarbonate, S 28 22 - 29 01/18/2020 DTL mmol/L 2:41 PM CDT Anion Gap 12 7 - 15 01/18/2020 DTL 2:41 PM CDT BUN (Blood Urea 11 6 - 21 01/18/2020 DTL Nitrogen), S mg/dL 2:41 PM CDT Creatinine 0.89 0.59 - 01/18/2020 DTL 1.04 mg/dL 2:41 PM CDT eGFR-Non >90 >=60 01/18/2020 DTL Black/ mL/min/BSA 2:41 PM CDT Tuvaluan Comment: ----ADDITIONAL INFORMATION---- Estimated GFR calculated using the 2009 CKD_EPI creatinine equation. eGFR-Black/ >90 >=60 mL/min/BSA 2019 2:41 PM CDT DTL Comment: ----ADDITIONAL INFORMATION---- Estimated GFR calculated using the 2009 CKD_EPI creatinine equation. Calcium, Total, S 9.6 8.6 - 10.0 mg/dL 01/18/2020 2:41 PM CDT DTL Glucose, S 87 70 - 140 mg/dL 01/18/2020 2:41 PM CDT D TL Protein, Total, S 7.1 6.3 - 7.9 g/dL 01/18/2020 2:41 P M CDT DTL Albumin, S 4.9 3.5 - 5.0 g/dL 01/18/2020 2:41 PM CDT D TL Aspartate Aminotransferase (AST), 19 8 - 43 U/L 01/17 2:41 PM CDT DTL S Alkaline Phosphatase, S 40 35 - 104 U/L 01/18/2020 2: 41 PM CDT DTL Alanine Aminotransferase (ALT), S 10 7 - 45 U/L 01/17 2:41 PM CDT DTL Bilirubin, Total, S 0.7 <=1.2 mg/dL 01/18/2020 2:41 PM CDT DTL Specimen Anatomical Collection Method Collection Time Receive d Time (Source) Location / / Volume Laterality Blood (Blood, 01/18/2020 11:00 01/18/2020 1:48 Venous) AM CDT PM CDT Gayla Vora APRN, C.N.P., D.N.P., M.S.N. LAB BLOOD ADD-ON Performing Organization Address City/State/ZIP Code Phon e Number [facility] - 200 [place], [place] [address] [place] [address] [facility] 200 [facility] (ABNORMAL) CBC with Differential, Blood (01/18/2020 11:00 AM CDT) [facility] Method Time Signature Hemoglobin 14.5 11.6 - 01/18/2020 PCNE 15.0 g/dL 11:06 AM CDT Hematocrit 42.3 35.5 - 01/18/2020 PCNE 44.9 % 11:06 AM CDT Erythrocytes 4.42 3.92 - 01/18/2020 PCNE 5.13 11:06 AM CDT x10(12)/L MCV 95.7 78.2 - 01/18/2020 PCNE 97.9 fL 11:06 AM CDT RBC Distrib Width 11.7 (L) 12.2 - 01/18/2020 PCNE 16.1 % 11:06 AM CDT Platelet Count 318 157 - 371 01/18/2020 PCNE x10(9)/L 11:06 AM CDT Leukocytes 7.8 3.4 - 9.6 01/18/2020 PCNE x10(9)/L 11:06 AM CDT Neutrophils 4.24 1.56 - 01/18/2020 PCNE 6.45 11:06 AM CDT x10(9)/L Lymphocytes 2.42 0.95 - 01/18/2020 PCNE 3.07 11:06 AM CDT x10(9)/L Monocytes 0.68 0.26 - 01/18/2020 PCNE 0.81 11:06 AM CDT x10(9)/L Eosinophils 0.33 0.03 - 01/18/2020 PCNE 0.48 11:06 AM CDT x10(9)/L Basophils 0.09 (H) 0.01 - 01/18/2020 PCNE 0.08 11:06 AM CDT x10(9)/L Specimen Anatomical Collection Method Collection Time Receive d Time (Source) Location / / Volume Laterality Blood (Blood, 01/18/2020 11:00 01/18/2020 Venous) AM CDT 11:00 AM CDT Gayla Vora APRN, C.N.P., D.N.P., M.S.N. LAB BLOOD ADD-ON Performing Organization Address City/State/ZIP Code Phon e Number [address] JI documented in this encounter Visit Diagnoses Diagnosis Colitis Crohn's (HCC) documented in this encounter Care Teams Chief Scientist Relationship Specialty Start Date End Date Belkys Marshall APRN, C.N.P., M.S. PCP - General Family Medicine 11/16/[address] [place] [address] documented as of this encounter
--- OUTSIDE RECORDS SUMMARY | 2022-08-31 12:39 | XMS_ITS | Encounter Summary ---
:1994 Author Organization [facility] Address [address] [place] [address] Care Team Providers Name Role Phone Belkys Marshall APRN C.N.PJulia, M.S. Primary Care Provider +1- [phone] Reason for Visit Reason Comments Other Chrons flare uo concerns Appointment Request (Routine) - Closed Specialty Diagnoses / Procedures Referred By Contact Refer red To Contact Family Medicine Referral ID Status Reason Start Date Expiration Date Visits Requ ested Visits Authorized [id number] Closed 01/18/2020 01/17/2021 1 1 Encounter Details Date Type Department Care Team Description 01/18/2020 Office Visit Department of [facility] Diony, Anh Hughes Crohn's (HCC) Medicine, [facility] KARL, C.N.P., (Prim sadie Dx) Clinic [facility], in Jody.Ciara., M.S .N. [place], [place] [address] [place] [address] [place] [phone] Social History Tobacco Use Types Packs/Day [...] 11/23/2021 organizations such as sabianism groups, unions, [employer] or athletic groups, or school groups? How [...] Sign Reading Time Taken Comments Blood Pressure 93/61 01/18/2020 10:20 AM CDT Pulse 81 01/18/2020 10:20 AM CDT Temperature 36.6 ??C (97.9 ??F) 01/18/2020 10:20 AM CDT Respiratory Rate - - Oxygen Saturation - - Inhaled Oxygen Concentration - - Weight 63.6 kg (140 lb 3.4 oz) 01/18/2020 10:20 AM CDT Height 166 cm (5' 5.35) 01/18/2020 10:20 AM CDT Body Mass Index 23.08 01/18/2020 10:20 AM CDT documented in this encounter Progress Notes Gayla Vora APRN, C.N.P., D.N.P., M.S.N. - 01/18/2020 10:30 AM CDT SUBJECTIVE CHIEF COMPLAINT / REASON FOR VISIT Laurel Mcdonald is a 24 y.o. female who presents for evaluation of No chief complaint on file.. HISTORY OF PRESENT ILLNESS Ms. Mcdonald, patient of Belkys Marshall CNP, presents, accompanied by mom, today for discussion of possible Crohn's flare. She states she believes that she is having a flare up. She took the Stelara injection 2 weeks ago and has not felt well since. She reports a decreased appetite, weakness, fatigue, palpitation, pain after eating, and facial flushing, that has gotten progressively worse over the past 2 weeks. She states she reached out to GI and they had no available appointments. She denies any diarrhea or blood. She states she has either formed, every other day stools, or multiple daily; however, as above not currently. Per EMR, she started on Stelara in 10/2018, after Crohn's diagnosis 02/2017. Last colonoscopy in 07/2018 was normal. Enterography of 12/2018 was also normal. She developed antibodies to prior use of Remicade and Humira. Per EMR, she could not tolerate Imuranside effects. At the time of enterography 12/30, she was having symptoms of fatigue, nausea, and postprandial abdominal pain. It was noticed dairy products made her pain worse and she was instructed to avoid. She wasalso instructed to use FDgard for perceived functional dyspepsia. She states she does not intake lactose as it was a known trigger. She did not dry the FDgard. She is maintaining hydration. She has stable weight. She denies fevers. The following portions of the patient's history were reviewed and updated as appropriate: allergies,current medications, medical history, social history, surgical history and problem list. OBJECTIVE PHYSICAL EXAM Extremely: Pleasant, well-appearing, 24-year-old female in no acute distress. Heart: S1-S2 regular rate rhythm. Lungs: Clear to auscultation bilaterally. Abdomen: Soft, nontender, nondistended without organomegaly. Mental: Alert and oriented. BP 93/61 (BP Location: Left arm, Patient Position: Sitting, Cuff Size: Regular) Pulse 81 Temp 36.6 ??C Ht 166 cm Wt 63.6 kg BMI 23.08 kg/m?? ASSESSMENT / PLAN #1 Colitis Crohn's (HCC) Physical examination findings and vital signs reviewed with Laurel and mom. Discussed, in line with last lab work obtained by GI, we will update CBC, CMP and CRP. Results via portal as available. Will then send an in basket message with results and another with recommendations from GI as available. She states she will look into FDgard to see if it could be beneficial in any of her symptoms. They also inquire to see if there is an antibody check for Stelara to see if she is also becoming intolerant of it as she was with Remicade and Humira. - CBC with Differential, Blood; Future; Expected date: 01/18/2020 - Comprehensive Metabolic Panel; Future; Expected date: 01/18/2020 - CRP (C-Reactive Protein); Future; Expected date: 01/18/2020 PATIENT EDUCATION: Ready to learn, no apparent learning barriers were identified; learning preferences include listening. Explained diagnosis and treatment plan; patient/child/caregiver expressed understanding of the content. documented in this encounter Plan of Treatment Not on filedocumented as of this encounter Results CRP (C-Reactive Protein) (01/18/2020 11:00 AM CDT) P athologist Signature C-Reactive <3.0 <=8.0 mg/L 01/18/2020 DTL Protein (CRP), 2:41 PM CDT S Specimen Anatomical Collection Method Collection Time Receive d Time (Source) Location / / Volume Laterality Blood (Blood, 01/18/2020 11:00 01/18/2020 1:48 Venous) AM CDT PM CDT Layne Goins APRNN.P., Jody.N.P., M.S.N. LAB BLOOD ADD-ON Performing Organization Address City/State/ZIP Code Phon e Number [facility] - [address] [place], [place] [address] [place] [address] Laboratories-[facility] [address] Comprehensive Metabolic Panel (01/18/2020 11:00 AM CDT) P athologist Signature Potassium, S 4.5 3.6 - [...] 01/18/2020 DTL Black/ mL/min/BSA 2:41 PM CDT Cook Islander Comment: ----ADDITIONAL INFORMATION---- Estimated GFR calculated [...] Venous) AM CDT PM CDT Gayla Vora APRN C.N.P., D.N.P., M.S.N. LAB BLOOD ADD-ON Performing Organization Address City/State/ZIP Code Phon e Number [facility] - [address] [place] [address] [place] [address] [facility] 200 [facility] (ABNORMAL) CBC with Differential, Blood (01/18/2020 11:00 AM CDT) [facility] gist Method Time Signature Hemoglobin 14.5 11.6 - [...] AM CDT 11:00 AM CDT Gayla Vora APRN C.N.P., DJuliaN.P., M.S.N. LAB BLOOD ADD-ON Performing Organization Address City/State/ZIP Code Phon e Number [address] PCNE [address] JI documented in this encounter Visit Diagnoses Diagnosis Colitis Crohn's (HCC) - Primary documented in this encounter Care Teams Document Analyst Relationship Specialty Start Date End Date Belkys Marshall APRN, C.N.P., M.S. PCP - General Family Medicine 11/16/[address] [place] [address] documented as of this encounter
--- OUTSIDE RECORDS SUMMARY | 2022-08-31 12:39 | XMS_ITS | Encounter Summary ---
:1994 Author Organization [facility] Address [address] [place] [address] Care Team Providers Name Role Phone Belkys Marshall APRN, C.N.P., M.S. Primary Care Provider +1- [phone] Encounter Details Date Type Department Care Team Description 01/18/2020 Nurse Triage Department of Family Head, Isabella Otero Medicine, [facility] M.S.N., R. N. [facility], in [address] [place] [address] Claudio Hernandez [address] [place] [address] [phone] Social History Tobacco Use Types Packs/Day Years [...] on filedocumented in this encounter Care Teams Vice President Sales Relationship Specialty Start Date End Date Belkys Marshall, KARL, C.N.P., M.S. PCP - General Family Medicine 11/16/19 [address] [place] [address] documented as of this encounter
--- OUTSIDE RECORDS SUMMARY | 2022-08-31 12:39 | XMS_ITS | Encounter Summary ---
:1994 Author Organization [facility] Address [address] [place] [address] Care Team Providers Name Role Phone Belkys Marshall APRN C.N.P., M.S. Primary Care Provider +1- [phone] Encounter Details Date Type Department Care Team Description 12/23/2019 Specialty Pharmacy [facility] Kerwin Nilam Colitis Crohn's [address] Hernandez, Pharm.D. ([facility]) (Primary Dx) [address] [address] [phone] Social History Tobacco Use Types Packs/Day Years [...] 1 to 4 times per year 11/11 scientology services? Do you belong to any clubs [...] Miscellaneous Notes Telephone Encounter - Nilam Suresh, Neo.D., R.Ph. - 12/23/2019 8:53 AM RESEARCH PSYCHOLOGIST SUBJECTIVE REASON FOR VISIT Attempted patient counseling and education for new specialty pharmacy medication therapy and establishing medication reassessment timeline. HISTORY OF PRESENT ILLNESS Ms. Laurel Mcdonald is a 24 y.o. female, who is followed by the specialty pharmacy service for [facility] for Crohn's disease (medication and indication). OBJECTIVE ASSESSMENT / PLAN 1. Medication counseling The patient declined counseling on this date. The patient was previously on this same therapy and isnow required to get this it from the [facility]. 2. Potential drug-drug interactions Based upon the patient's Epic medication profile a medication interaction check was attempted. (patient declined counseling with pharmacist). No clinically significant drug interactions were identified with Stelara. 3. Goals of therapy Patient declined recreational counselor, no goals agreed upon. Attempting to: Promote medication adherence. Evaluate other newly prescribed therapies as needed for drug-drug and drug- disease appropriateness. Mitigate, treat or prevent side effects. The patient has decided to use the [facility]. Unable to assess darcy for service through [facility]. Follow-up: 8 week(s) Nilam Suresh Pharm.D., R.Ph. ARCH PSYCHOLOGIST documented in this encounter Plan of Treatment Not on filedocumented as of this encounter Visit Diagnoses Diagnosis Colitis Crohn's (HCC) - Primary documented in this encounter Care Teams Cooler Supervisor Relationship Specialty Start Date End Date Belkys Marshall APRN, C.N.P., M.S. PCP - General Family Medicine 11/16/19 [address] [place] [address] documented as of this encounter
--- OUTSIDE RECORDS SUMMARY | 2022-08-31 12:39 | XMS_ITS | Encounter Summary ---
:1995 Author Organization [facility] Address [address] [place] [address] Care Team Providers Name Role Phone Belkys Marshall APRN, C.NJuliaPJulia, M.S. Primary Care Provider +1- [phone] Reason for Visit Reason Comments Other PAP /HPV screening Outpatient (Routine) - Closed Specialty Diagnoses / Procedures Referred By Contact Refer red To Contact Family Medicine [facility] C.N[facility]., M.S. [address] [place] [phone] Referral ID Status Reason Start Date Expiration Date Visits Requ ested Visits Authorized [id number] Closed 12/22/2019 12/21/2020 1 1 Encounter Details Date Type Department Care Team Description 01/22/2020 Office Visit Department of Belkys Greene [facility] Adult (Primary Dx); Medicine, [facility] KARL C.NJluiaPJulia, Asthm a Mild Intermittent (HCC); Clinic [facility], in M.S. Colitis Crohn's (HCC); [place], [place] [address] [facility] Thyroiditis Singh's [address] [place] [phone] Social History Tobacco Use Types Packs/Day [...] 1 to 4 times per year 11/11 faith services? Do you belong to any clubs [...] Sign Reading Time Taken Comments Blood Pressure 94/57 01/22/2020 1:29 PM CDT BP benjamin Pulse 82 01/22/2020 1:29 PM CDT Temperature - - Respiratory Rate - - Oxygen Saturation - - Inhaled Oxygen Concentration - - Weight 63 kg (138 lb 14.2 oz) 01/22/2020 1:29 PM CDT Height 166 cm (5' 5.35) 01/22/2020 1:29 PM CDT Body Mass Index 22.86 01/22/2020 1:29 PM CDT documented in this encounter Progress Notes Belkys Marshall APRN, C.N.P., M.S. - 01/22/2020 1:30 PM CDT SUBJECTIVE CHIEF COMPLAINT / REASON FOR VISIT Laurel Mcdonald is a 24 y.o. female, patient of Belkys Marshall APRN, C.N.P., M.S. who presents for evaluation of Other (PAP /HPV screening ). HISTORY OF PRESENT ILLNESS Diagnosis Overview 1. Asthma Mild Intermittent (HCC) Diagnosed 6th grade via testing. No hospitalizations. No oral prednisone bursts. Has been off medication for many years without symptoms. Currently asymptomatic. 2. Colitis Crohn's (HCC) Followed by GI. Diagnosed with Crohn's colitis in February 2017. [...] and subsequently transitioned to Stelara 10/2018. Last colonoscopy in 07/2018 was normal. Enterography of 12/2018 was alsonormal. Reports feeling unwell (decreased appetite, weakness, fatigue, diffuse abdominal discomfort, body aches) since shortly after her last Stelara injection. See in clinic on 01/18/2020. CBC, CMP, and CRP satisfactory. GI ordered antibody test for Stelara which she has not completed yet. Today is feeling slightly better. Has not been working for the last week. Has GI follow-up scheduled for April. 3. Thyroiditis Singh's Endocrinology consult Sep 2019. Thyroid ultrasound demonstrated goiter and findings consistent withthe elevated TPO antibody/Singh's. Upon recheck labs normalized. Family history of both hyper and hypothyroidism in a paternal aunt and paternal grandmother respectively. Lab Results Component Value Date TSH 2.3 09/28/2019 [id number] 107 09/28/2019 4. Maintenance Health Adult - Primary Immunizations: Up-to-date. Tobacco/Alcohol/Illicit drugs: Refer to social history. -Lung cancer screening: Lifetime non-smoker. Diet/Exercise: General diet. Training for 5k, running and weights. BMI: Body mass index is 22.86 kg/m??. BP: 94/57 [place]: [place] Sep [place] Mammogram: Age 39. Pap smear: No hx of abnormal. Last done Sep 2018 (outside facility). Due 2020. Colonoscopy/Cologuard: Crohn's, see overview. HIV: negative, 2018. Bone Density: Age 64 or sooner if risk factors. 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 Menarche 12. Cycles regular naturally with cramping. Placed on progesterone only control and menses now sporadic. The following portions of the patient's history [...] Respiratory, , Hematologic, Musculoskeletal OBJECTIVE PHYSICAL EXAM Physical Exam GENERAL APPEARANCE: Well developed, well-nourished and in no acute distress. HEAD: Normocephalic. ENT: External auditory canals and TM clear, hearing grossly intact. Oral cavity and pharynx normal. Teeth and gingiva in good general condition. EYES: Conjunctivae non-injected; sclerae anicteric; extraocular movements intact; pupils equal, round, and reactive to light. Vision grossly intact. NECK: Supple, non-tender without lymphadenopathy, masses or thyromegaly. LUNGS: Clear without rales, rhonchi, wheezing or diminished breath sounds. HEART: Regular rhythm with no murmurs/clicks, S3, S4. ABDOMEN: Soft, mild diffuse tenderness. No peritoneal signs. VASCULAR: No lower extremity edema. NEUROLOGIC: Alert and oriented. Cranial nerves 2-12 grossly intact. PSYCHIATRIC: Grossly intact. Vitals: 01/22/20 1329 BP: 94/57 Comment: BP benjamin BP Location: Right arm Patient Position: Sitting Cuff Size: Regular Pulse: 82 ASSESSMENT / PLAN #1 Maintenance Health Adult Assessment & Plan: HR, BP, BMI, immunizations, and tobacco use status reviewed. Indications for screening tests reviewed and appropriate tests offered based on age and patient- provided history. Discussed the importance of well-balanced diet, daily physical activity, healthy weight, avoidance of tobacco, and alcohol use in moderation. #2 Asthma Mild Intermittent (HCC) Assessment & Plan: Stable. Continue to monitor. Has albuterol inhaler as needed. #3 Colitis Crohn's (HCC) #4 Thyroiditis Singh's Assessment & Plan: Reports feeling slightly better today, but still fairly symptomatic. Will wait for results of antibody testing ordered by GI. Will add thyroid cascade to this blood work to make sure this is not contributing given recent history of singh's thyroiditis. Depending on results of tests, anticipate working with her GI provider on next steps. - Thyroid Function [place]; Future; Expected date: 01/22/2020 Other orders - Family Medicine office visit (clinic) - norethindrone (Jemima) 0.35 mg tablet; Take 1 tablet (0.35 mg total) by mouth daily., Starting 01/22/2020, Normal documented in this encounter Miscellaneous Notes Assessment & Plan Note - Belkys Marshall APRN, C.N.P., M.S. - 01/22/2020 2:28 PM CDTAssociated Problem(s): Maintenance Health Adult HR, BP, BMI, immunizations, and tobacco use status reviewed. Indications for screening tests reviewed and appropriate tests offered based on age and patient- provided history. Discussed the importance of well-balanced diet, daily physical activity, healthy weight, avoidance of tobacco, and alcohol use in moderation. Assessment & Plan Note - Belkys Marshall APRN, C.N.P., M.S. - 01/22/2020 2:26 PM CDTAssociated Problem(s): Colitis Crohn's (HCC) Reports feeling slightly better today, but still fairly symptomatic. Will wait for results of antibody testing ordered by GI. Will add thyroid cascade to this blood work to make sure this is not contributing given recent history of singh's thyroiditis. Depending on results of tests, anticipate working with her GI provider on next steps. Assessment & Plan Note - Belkys Marshall APRN, C.NVira., M.S. - 01/22/2020 2:22 PM CDTAssociated Problem(s): Asthma Mild Intermittent (HCC) Stable. Continue to monitor. Has albuterol inhaler as needed. documented in this encounter Plan of Treatment Not on filedocumented as of this encounter Results Thyroid Function [place] (01/22/2020 2:17 PM CDT) P athologist Signature TSH, Sensitive 2.8 0.3 - 4.2 01/22/2020 DTL mIU/L 5:49 PM CDT Specimen Anatomical Collection Method Collection Time Receive d Time (Source) Location / / Volume Laterality Blood (Blood, 01/22/2020 2:17 PM 01/22/20 20 5:13 Venous) CDT PM CDT Belkys Marshall APRN, C.N.P., M.S. LAB BLOOD ADD-ON Performing Organization Address City/State/ZIP Code Phon e Number [facility] - [address] [place], [place] [address] [facility] [place] [address] Laboratories-[facility] [address] documented in this encounter Visit Diagnoses Diagnosis Maintenance Health Adult - Primary Asthma Mild Intermittent (HCC) Colitis Crohn's (HCC) Thyroiditis Singh's documented in this encounter Care Teams Quail Farmer Relationship Specialty Start Date End Date Belkys Marshall APRN, C.NVira., M.S. PCP - General Family Medicine 11/16/19 [address] [place] [phone] documented as of this encounter
--- OUTSIDE RECORDS SUMMARY | 2022-08-31 12:39 | XMS_ITS | Encounter Summary ---
:1995 Author Organization [facility] Address [address] [place] [address] Care Team Providers Name Role Phone Belkys Marshall APRN, C.N.PJulia, M.S. Primary Care Provider +1- [phone] Reason for Referral Outpatient (Routine) - Closed Specialty Diagnoses / Procedures Referred By Contact Refer red To Contact Family Medicine [facility] C.[facility]., M.S. [address] [place] [phone] Referral ID Status Reason Start Date Expiration Date Visits Requ ested Visits Authorized [id number] Closed 12/22/2019 12/21/2020 1 1 INE FEEDER Encounter Details Date Type Department Care Team Description 12/22/2019 Orders Only RST PCP HLTH MNT Belkys Marshall APRN, C .N.P., M.S. [address] [place] [phone] (Wo rk) Social History Tobacco [...] place to sleep or slept in a group home (including now)? Education Answer Date Recorded What is the highest level of school Bachelor's degree (e.g., BA, AB, 09/27/2019 you have completed or the highest BS) degree you have received? Sex Assigned at Date Recorded Female 07/18/2021 2:49 PM CDT documented as of this encounter Plan of Treatment Scheduled Referrals Name Type Priority Associated Diagnoses Order S [facility] Family Medicine Outpatient Referral Routine Expec alicia: office visit 01/05/2020, (clinic) Expires: 12/22/2022 documented as of this encounter Visit Diagnoses Not on filedocumented in this encounter Care Teams Ekg/Ecg Technician Relationship Specialty Start Date End Date Belkys Marshall, KARL, C.N.P., M.S. PCP - General Family Medicine 11/16/[address] [place] [phone] documented as of this encounter
--- OUTSIDE RECORDS SUMMARY | 2022-08-31 12:39 | XMS_ITS | Encounter Summary ---
:1995 Author Organization [facility] Address [address] [place] [address] Care Team Providers Name Role Phone Belkys Marshall APRN C.N.PJulia, M.S. Primary Care Provider +1- [phone] Encounter Details Date Type Department Care Team Description 01/22/2020 Hospital Encounter Department of Belkys Marshall Thyroid itis Amador's; Laboratory Medicine KARL Mitchell, Colitis Crohn's (HCC) and Pathology, C.N.P., M.S. [facility], in [address] [place] [address] [address] [address] [place] [phone] [place], [place] (Work) [phone] Social History Tobacco Use [...] 1 to 4 times per year 11/11 christian services? Do you belong to any clubs [...] tablet (0.35 mg total) by mouth daily. nortriptyline (PAMELOR) 25 Take 1 capsule (25 [...] Name Priority Date/Time Associated Diagnosis Comme nts OR REF QUANTITATIVE Routine 01/22/2020 2:17 PM Colitis Crohn's Results for this ASSAY DRUG CDT (HCC) procedure are i n the results section. THYROID FUNCTION Routine 01/22/2020 2:17 PM Thyroiditis Resul ts for this CASCADE, S CDT Amador's procedure are i n the results section. documented in this encounter Results Ustekinumab and Anti-Ustekinumab Antibody, DoseASSURE UST - Sent Out Lab (01/22/2020 2:17 PM CDT) [facility] gist Method Time Signature Dose mg 90 mg 01/23/2020 [facility] 1:43 PM CDT Interval weeks 8 wk 01/23/2020 [facility] 1:43 PM CDT Ustekinumab 6.8 ug/mL 01/29/2020 [facility] Drug Level 3:31 PM CDT Anti-Ustekinuma Not detected AU/mL 01/29/2020 [facility] b Antibody 3:31 PM CDT Comment: ----ADDITIONAL INFORMATION---- Interpretive Guide: Ustekinumab Trough Level: UST <1 ug/mL Anti-Ustekinumab Antibody: Not Detected Response Interpretation/Action: -In poor responders, shortening the dosi ng interval may be appropriate. -The maintenance study showed that both UST 90 mg IM q8w and q12w maintained clinical response an d remission through Week 44. However, the q8w regime n more consistently demonstrated efficacy acros s the range of endpoints. -In a substudy of patients (n=102) with endoscopy at baseline and Week 44, the proportions of patients achieving endoscopic response, endoscopi c remission, and mucosal healing were higher in the 2 nd (>0.5 ug/mL- 1.39 ug/mL), 3rd (>1.39 ug/mL-2.67 ug/mL ), and 4th (>2.67 ug/mL) concentration quartiles. -A second study of patients with CD rubia alicia with UST showed 78% of patients were receiving US T 90 mg IM every 4 weeks after > 6 months. Ustekinumab Trough Level: UST <1 ug/mL Anti-Ustekinumab Antibody: Detected Response Interpretation/Action: -In poor responders, a change to another drug regimen may be appropriate. -In the phase II clinical trial, the inc idence of antibodies to UST was 0.7% at week 36. I n the pooled results of the phase III clinical trial, the incidence of antibodies to UST was 2.3% through on e year. -Some patients on biologic therapy may d evelop antibodies that resolve over time. Ustekinumab Trough Level: UST >/= 1 ug/m L Anti-Ustekinumab Antibody: Not Detected Response Interpretation/Action: -In patients who do not have antibodies that do not respond or lose response, a change to an other drug regimen may be appropriate. Clinically reportable ranges: Ustekinumab 0.1-10 ug/mL Anti-Ustekinumab antibody 5-100 AU/mL This test was developed by and its perfo rmance characteristics determined by [employer]. The test has not been cleared or approve d by the Food and Drug Administration. The FDA has determi maria c that such clearance or approval is not necessary. This test is used for clinical purposes. [employer] s is regulated under the Clinical Laboratory Improvemen t Amendments of 1988 (CLIA) as qualified to perform high -complexity clinical testing. Test results are not d iagnostic and should be used to supplement clinical fi ndings from the ordering physician's workup. Specimen Anatomical Collection Method Collection Time Receive d Time (Source) Location / / Volume Laterality Blood (Blood, 01/22/2020 2:17 PM 01/23/20 20 1:43 Venous) CDT PM CDT Juan Jama LAB BLOOD NON ADD-ON Performing Organization Address City/State/ZIP Code Phon e Number [facility] [address] [place] [address] [place] [address] [address] [facility] Thyroid Function [place] (01/22/2020 2:17 PM CDT) P athologist Signature TSH, Sensitive 2.8 0.3 - 4.2 01/22/2020 DTL mIU/L 5:49 PM CDT Specimen Anatomical Collection Method Collection Time Receive d Time (Source) Location / / Volume Laterality Blood (Blood, 01/22/2020 2:17 PM 01/22/20 5:13 Venous) CDT PM CDT Belkys Marshall APRN, Celina.N.Mame., M.S. LAB BLOOD ADD-ON Performing Organization Address City/State/ZIP Code Phon e Number [facility] - [address] [place] [address] [facility] [place] [address] Laboratories-[facility] 200 [facility] documented in this encounter Visit Diagnoses Diagnosis Thyroiditis Amador's Colitis Crohn's (HCC) documented in this encounter Care Teams Plater Barrel Relationship Specialty Start Date End Date Belkys Marshall APRN C.N.P., M.S. PCP - General Family Medicine 11/16/19 [address] [place] [phone] documented as of this encounter
--- OUTSIDE RECORDS SUMMARY | 2022-08-31 12:39 | XMS_ITS | Encounter Summary ---
:1995 Author Organization [facility] Address [address] [place] [address] Care Team Providers Name Role Phone Belkys Marshall APRN C.N.PJulia, M.S. Primary Care Provider +1- [phone] Encounter Details Date Type Department Care Team Description 12/15/2019 Orders Only Pharmacy Prior Auth RO Kristan Gonzales, R.M.A. Social History Tobacco Use Types Packs/Day Years [...] on filedocumented in this encounter Care Teams Fire Safety Director Relationship Specialty Start Date End Date Belkys Marshall APRN, C.N.P., M.S. PCP - General Family Medicine 11/16/19 [address] [place] [address] documented as of this encounter
--- OUTSIDE RECORDS SUMMARY | 2022-08-31 12:39 | XMS_ITS | Encounter Summary ---
:1995 Author Organization [facility] Address [address] [place] [address] Care Team Providers Name Role Phone Belkys Marshall APRN, C.N.P., M.S. Primary Care Provider +1- [phone] Reason for Visit Appointment Request (Routine) - Closed Specialty Diagnoses / Procedures Referred By Contact Refer red To Contact Preventive Medicine Referral ID Status Reason Start Date Expiration Date Visits Requ ested Visits Authorized [id number] Closed 02/09/2020 02/08/2021 1 1 Encounter Details Date Type Department Care Team Description 02/09/2020 Internal Section of [facility] E-Consult Transportation and KARL Otero Examinati on (Primary Occupational Medicine C.N.P., D. N.P. Dx) in [place] [address] [address] [place], [place] [address] [place] [phone] [place], [place] [phone] (Work) [phone] Social History Tobacco Use Types Packs/Day Years [...] documented as of this encounter Consult Notes Amanda Bryan APRN, C.N.P., D.N.P. - 02/09/2020 3:45 PM CDT SUBJECTIVE Laurel Mcdonald is a 25 y.o. female who requires evaluation for respiratory clearance. 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 Mask types: N95/PAPR Known prior difficulties using mask: No Significant medical history: No Respirator questionnaire: Reviewed, no concerns. She has exercise induced asthma and has not used her inhaler for years. ASSESSMENT / PLAN #1 Occupational Health Exam Respirator clearance on a 25 y.o. healthy female. Based on the review, appropriate test and exam, she is medically cleared for unrestricted N95 and PAPR respirator and personal protective equipment use. Recheck per company protocol, sooner if needed. Appropriate forms filled out for the employer, see s canned documents for details. This is an administrative occupational health examination. documented in this encounter Plan of Treatment Not on filedocumented as of this encounter Visit Diagnoses Diagnosis Occupational Health Examination - Primar y documented in this encounter Care Teams Ice Puller Relationship Specialty Start Date End Date Belkys Marshall APRN, C.N.P., M.S. PCP - General Family Medicine 11/16/19 [address] [place] [address] documented as of this encounter
--- OUTSIDE RECORDS SUMMARY | 2022-08-31 12:39 | XMS_ITS | Encounter Summary ---
:1995 Author Organization [facility] Address [address] [place] [address] Care Team Providers Name Role Phone Belkys Marshall APRN C.N.PJulia, M.S. Primary Care Provider +1- [phone] Encounter Details Date Type Department Care Team Description 01/19/2020 Clinical Communication Department of [facility] Diony, Mary Bernardo, Medicine, [facility] KARL, C.N.P., Clinic [facility], in Jody.NVira., M.S .N. [address] [place] [phone] Social History Tobacco Use Types Packs/Day Years [...] or relatives? How often do you attend latter day or 1 to 4 times per year 11/11 alevism services? Do you belong to any clubs or Yes 11/23/2021 organizations such as latter day groups, unions, fraternal or athletic groups, or [...] encounter Miscellaneous Notes Telephone Encounter - Gayla Vora APRN, C.N.P., D.N.P., M.S.N. - 01/19/2020 10:00 AM CDT Noted. Message with information sent to patient. Addendum Note - Juan Jane M.B.B.S. - 01/19/2020 9:56 AM CDT Addended by: JUAN JANE on: 01/19/2020 09:56 AM Modules accepted: Orders Telephone Encounter - Gayla Vora APRN, C.N.P., Sally., M.S.N. - 01/19/2020 9:30 AM CDT You will be seeing this patient on 04/14/2020 (first available I was told) for follow-up of her Chrohn's. She has recently had complaints of decreased appetite, weakness, fatigue, palpitations, pain after eating, and facial flushing, progressively worse over the past 2 weeks. Per EMR, she had similar complaints in 12/2018, recommended to discontinue lactose, which she did, and to trial FDgard which she did not but intends to try at this time. CBC, CMP and CRP are all normal. 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 She is inquiring as to if there is a test to determine if she is doing the same to Valentin (started in 10/2018). With appreciation- Gayla documented in this encounter Plan of Treatment Not on filedocumented as of this encounter Results Ustekinumab and Anti-Ustekinumab Antibody, DoseASSURE UST - Sent Out Lab (01/22/2020 2:17 PM CDT) [facility] gist Method Time Signature Dose mg [...] and its perfo rmance characteristics determined by [facility]. The test has not been cleared or approve d by the Food and Drug Administration. The FDA has determi maria c that such clearance or approval is not necessary. This test is used for clinical purposes. [facility] is regulated under the Clinical Laboratory [...] Organization Address City/State/ZIP Code Phon e Number [facility] [address] [place] [address] [facility] [employer] ([employer] [place] [address] documented in this encounter Visit Diagnoses Diagnosis Colitis Crohn's (HCC) - Primary documented in this encounter Care Teams Community Educator Relationship Specialty Start Date End Date Belkys Marshall APRN, C.N.P., M.S. PCP - General Family Medicine 11/16/19 [address] [place] [address] documented as of this encounter
--- OUTSIDE RECORDS SUMMARY | 2022-08-31 12:40 | XMS_ITS | Encounter Summary ---
:1995 Author Organization [facility] Address [address] [place] [address] Care Team Providers Name Role Phone Unavailable Primary Care Provider Unavailable Reason for Visit Reason Onset Date Comments Ms. Mcdonald called 10/30/2018 Encounter Details Date Type Department Care Team Description 10/30/2018 Clinical Division of Angelic Murphy Ms. Mcdonald Communication Gastroenterology in M.D. called [place], [place] [address] [place] [phone] Social History Tobacco Use Types Packs/Day Years [...] or slept in a correction (including now)? Sex Assigned at Date Recorded Female 07/18/2021 2:49 PM CDT documented as of this encounter Plan of Treatment Not on filedocumented as of this encounter Visit Diagnoses Not on filedocumented in this encounter
--- OUTSIDE RECORDS SUMMARY | 2022-08-31 12:40 | XMS_ITS | Encounter Summary ---
:1994 Author Organization [facility] Address [address] [place] [address] Care Team Providers Name Role Phone Unavailable Primary Care Provider Unavailable Encounter Details Date Type Department Care Team Description 10/01/2018 Orders Only Division of Angelic Murphy Nausea (Primar y Dx) Gastroenterology in .[place], [place] [address] [place] [address] [place] [address] [phone] Social History Tobacco Use Types Packs/Day Years [...] or slept in a alf (including now)? Sex Assigned at Date Recorded Female 07/18/2021 2:49 PM CDT documented as of this encounter Plan of Treatment Not on filedocumented as of this encounter Visit Diagnoses Diagnosis Nausea - Primary documented in this encounter
--- OUTSIDE RECORDS SUMMARY | 2022-08-31 12:40 | XMS_ITS | Encounter Summary ---
:1994 Author Organization [facility] Address [address] [place] [address] Care Team Providers Name Role Phone Unavailable Primary Care Provider Unavailable Reason for Referral Specialty Diagnoses / Procedures Referred By Contact Refer red To Contact Angelic Murphy M.D. [facility] [address] [place], [place] [id number] Referral ID Status Reason Start Date Expiration Date Visits Requ ested Visits Authorized Scheduling Instructions Medication name: Stelara (Ustekinumab) Museum Registrar, Please update appointment dur ation more accurately with information from the RN/Pharmacist recommendations. [employer] Encounter Details Date Type Department Care Team Description 09/26/2018 Orders Only Division of Angelic Murphy, Crohn's Diseas e Gastroenterology in M.DJulia (HCC) (Primary Dx) [place], [place] [address] [place] [address] [address] [place] [address] [place] [address] [phone] Social History Tobacco Use Types Packs/Day Years [...] 11/23/2021 organizations such as hinduism groups, unions, fraSeedrs or athletic groups, or school groups? How [...] or slept in a long-term (including now)? Sex Assigned at Date Recorded Female 07/18/2021 2:49 PM CDT documented as of this encounter Plan of Treatment Scheduled Referrals Name Type Priority Associated Order Schedule Diagnoses Medication Infusion Outpatient Referral Routine Crohn's Diseas e Expected: Therapy; Other; 15 (HCC) 8 minutes (Approximate), Expires: 09/26/2021 documented as of this encounter Visit Diagnoses Diagnosis Crohn's Disease (HCC) - Primary documented in this encounter
--- OUTSIDE RECORDS SUMMARY | 2022-08-31 12:40 | XMS_ITS | Encounter Summary ---
:1994 Author Organization [facility] Address [address] [place] [address] Care Team Providers Name Role Phone Unavailable Primary Care Provider Unavailable Reason for Visit Reason Comments Med Refill Encounter Details Date Type Department Care Team Description 05/28/2019 Refill Division of Gastroenterology in Angelic Murphy M.D. Med Refill [place], [place] [address] [place] [address] [address] [place] [address] [place] [address] [phone] Social History Tobacco Use Types Packs/Day Years [...] or slept in a halfway (including now)? Sex Assigned at Date Recorded Female 07/18/2021 2:49 PM CDT documented as of this encounter Plan of Treatment Not on filedocumented as of this encounter Visit Diagnoses Diagnosis Nausea documented in this encounter
--- OUTSIDE RECORDS SUMMARY | 2022-08-31 12:40 | XMS_ITS | Encounter Summary ---
:1994 Author Organization [facility] Address [address] [place] [address] Care Team Providers Name Role Phone Unavailable Primary Care Provider Unavailable Encounter Details Date Type Department Care Team Description 11/03/2018 Orders Only Division of Angelic Murphy, Crohn's Diseas e Gastroenterology in M.D. ([facility]) (Primary Dx) [place], [place] [address] [place] [address] Rd [address] [place] [address] [place] [address] [phone] Social History Tobacco Use Types Packs/Day Years [...]
--- OUTSIDE RECORDS SUMMARY | 2022-08-31 12:40 | XMS_ITS | Encounter Summary ---
:1994 Author Organization [facility] Address [address] [place] [address] Care Team Providers Name Role Phone Unavailable Primary Care Provider Unavailable Encounter Details Date Type Department Care Team Description 10/21/2018 Orders Only Division of Angelic Murphy, Crohn's Diseas e Gastroenterology in M.D. ([facility]) [place], [place] [address] [place] [address] [address] [place] [address] [place] [address] Social History Tobacco Use Types Packs/Day Years [...] slept in a nursing home (including now)? Sex Assigned at Date Recorded Female 07/18/2021 2:49 PM CDT documented as of this encounter Plan of Treatment Not on filedocumented as of this encounter Visit Diagnoses Diagnosis Crohn's Disease (HCC) documented in this encounter
--- OUTSIDE RECORDS SUMMARY | 2022-08-31 12:40 | XMS_ITS | Encounter Summary ---
:1994 Author Organization [facility] Address [address] [place] [address] Care Team Providers Name Role Phone Unavailable Primary Care Provider Unavailable Encounter Details Date Type Department Care Team Description 09/26/2018 Clinical Communication Division of Angelic Murphy, Gastroenterology in [address] [place] [address] [phone] Social History Tobacco Use Types Packs/Day Years [...] or relatives? How often do you attend jewish or 1 to 4 times per year 11/11 mandaeism services? Do you belong to any clubs or Yes 11/23/2021 organizations such as jewish groups, unions, fraternal or athletic groups, or [...] or slept in a fpc (including now)? Sex Assigned at Date Recorded Female 07/18/2021 2:49 PM CDT documented as of this encounter Miscellaneous Notes Telephone Encounter - Angelic Murphy M.D. - 09/26/2018 5:10 PM CST Phone note I called this Mcdonald the left her voice message regarding the Stelara effusion L PELLER documented in this encounter Plan of Treatment Not on filedocumented as of this encounter Visit Diagnoses Not on filedocumented in this encounter
--- OUTSIDE RECORDS SUMMARY | 2022-08-31 12:40 | XMS_ITS | Encounter Summary ---
:1994 Author Organization [facility] Address [address] [place] [address] Care Team Providers Name Role Phone Unavailable Primary Care Provider Unavailable Reason for Visit Reason Comments Outpatient Infusion Episode Based Medications (Routine) - Closed Specialty Diagnoses / Procedures Referred By Contact Refer red To Contact Diagnoses Colitis Crohn's (HCC) Angelic Murphy M.D. [facility] [address] [place], [place] [id number] [place] [phone] Fax: Referral ID Status Reason Start Date Expiration Date Visits Requ ested Visits Authorized [id number] Closed 09/26/2018 09/26/2019 1 1 Encounter Details Date Type Department Care Team Description 10/11/2018 Infusion Department of Infusion Mateusz Murphy M.D. Crohn's Disease (HCC) (Primary Dx); Therapy in [place], [address] Colitis Crohn's ([place]) [place] [address] [address] [facility] [place] [address] Social History Tobacco Use Types [...] Sign Reading Time Taken Comments Blood Pressure 105/63 10/11/2018 11:36 AM [employer] Pulse 84 10/11/2018 11:36 AM [employer] Temperature 36.5 ??C (97.7 ??F) 10/11/2018 10:13 AM [employer] Respiratory Rate 16 10/11/2018 11:36 AM [employer] Oxygen Saturation - - Inhaled Oxygen Concentration - - Weight - - Height - - Body Mass Index - - documented in this encounter Plan of Treatment Not on filedocumented as of this encounter Visit Diagnoses Diagnosis Crohn's Disease (HCC) - Primary Colitis Crohn's (HCC) documented in this encounter Administered Medications Inactive Administered Medications - up to 3 most recent administrations Medication Order MAR Action Action Date Dose Rate Site acetaminophen tablet 1,000 mg Given 10/11/2018 10:21 AM [employer] 1,00 0 mg (TYLENOL) 1,000 mg, oral, Once, On 10/11/18 at 1015, For 1 dose, 30 minutes prior to ustekinumab (STELARA) IV infusion. diphenhydrAMINE capsule 25 mg (BENADRYL) Given 10/11/2018 10:21 AM [employer] 25 mg 25 mg, oral, Once, On 10/11/18 at 1015, For 1 dose, 30 minutes prior to ustekinumab (STELAR) IV infusion ustekinumab 390 mg in NaCl 0.9% New Bag 10/11/2018 10:49 AM CS T 390 mg 250 mL/hr IVPB (STELARA) 390 mg, intravenous, at 250 mL/hr, Administer over 1 Hours, Once, On 10/11/18 at 1045, For 1 dose, Patient weight greater than 55 kg and less than 85 kg. IV induction dose. DO NOT SHAKE. documented in this encounter
--- OUTSIDE RECORDS SUMMARY | 2022-08-31 12:40 | XMS_ITS | Encounter Summary ---
:1994 Author Organization [facility] Address [address] [place] [address] Care Team Providers Name Role Phone Unavailable Primary Care Provider Unavailable Encounter Details Date Type Department Care Team Description 12/22/2018 Clinical Communication Division of Angelic Murphy, Gastroenterology in [address] [place] [phone] Social History Tobacco Use Types Packs/Day Years [...] 1 to 4 times per year 11/11 mandaen services? Do you belong to any clubs [...] or slept in a residential (including now)? Sex Assigned at Date Recorded Female 07/18/2021 2:49 PM CDT documented as of this encounter Plan of Treatment Not on filedocumented as of this encounter Visit Diagnoses Not on filedocumented in this encounter
--- OUTSIDE RECORDS SUMMARY | 2022-08-31 12:40 | XMS_ITS | Encounter Summary ---
:1994 Author Organization [facility] Address [address] [place] [address] Care Team Providers Name Role Phone Unavailable Primary Care Provider Unavailable Encounter Details Date Type Department Care Team Description 12/22/2018 Orders Only Division of Angelic Murphy, Crohn's Diseas e Gastroenterology in M.D. ([facility]) (Primary Dx) [place], [place] [address] [place] [address] [address] [place] [address] [place] [address] [phone] Social History Tobacco Use Types Packs/Day Years [...] slept in a senior living (including now)? Sex Assigned at Date Recorded Female 07/18/2021 2:49 PM CDT documented as of this encounter Plan of Treatment Not on filedocumented as of this encounter Results CRP (C-Reactive Protein) (12/23/2018 7:54 AM PHERESIS SPECIALIST) P athologist Signature C-Reactive <3.0 <=8.0 mg/L 12/23/2018 [facility] Protein (CRP), 9:13 AM PHERESIS SPECIALIST LABORATORIES - S [facility] Specimen Anatomical Collection Method Collection Time Receive d Time (Source) Location / / Volume Laterality Blood (Blood, 12/23/2018 7:54 AM 12/23/19 19 8:12 Venous) PHERESIS SPECIALIST AM PHERESIS SPECIALIST Angelic Murphy M.D. LAB BLOOD ADD-ON Performing Organization Address City/State/ZIP Code Phon e Number [facility] - [address] CMP (Comprehensive Metabolic Panel) (12/23/2018 7:54 AM PHERESIS SPECIALIST) Analysis Performed At Patho logist Time Signature Potassium, S 4.6 3.6 - 5.2 12/23/2018 [facility] mmol/L 9:13 AM PHERESIS SPECIALIST [facility] - [facility] Sodium, S 141 135 - 145 12/23/2018 [facility] mmol/L 9:13 AM PHERESIS SPECIALIST [facility] - [facility] Chloride, S 104 98 - 107 12/23/2018 [facility] mmol/L 9:13 AM [facility]ERES[facility] SPECIALIST LAB[facility]IES [facility] Bicarbonate, S 25 22 - 29 12/23/2018 [facility] mmol/L 9:13 AM [facility] Anion Gap 12 7 - 15 12/23/2018 [facility] 9:13 AM [facility] BUN (Blood Urea 9 6 - 21 12/23/2018 [facility] Nitrogen), S mg/dL 9:13 AM [facility] Creatinine 0.90 0.59 - 12/23/2018 [facility] 1.04 mg/dL 9:13 AM [facility] eGFR-Non 90 >=60 12/23/2018 [facility] Black/ mL/min/BSA 9:13 AM [facility] Comment: ----ADDITIONAL INFORMATION---- Estimated GFR calculated using the 2009 CKD_EPI creatinine equation. eGFR-Black/ >90 >=60 mL/min/BSA 12/23/2018 9:13 [facility]i [facility] Comment: ----ADDITIONAL INFORMATION---- Estimated GFR calculated using the 2009 CKD_EPI creatinine equation. Calcium, Total, S 9.5 8.6 - 10.0 12/23/2018 9:13 AM [facility] mg/dL [facility] Glucose, S 97 70 - 140 mg/dL 12/23/2018 9:13 AM [facility] Protein, Total, S 7.0 6.3 - 7.9 g/dL 12/23/2018 9:13 A M [facility] Albumin, S 4.8 3.5 - 5.0 g/dL 12/23/2018 9:13 AM [facility] Aspartate 18 8 - 43 U/L 12/23/2018 9:13 AM [facility] Aminotransferase (AST), S [facility] Alkaline Phosphatase, S 44 35 - 104 U/L 12/23/2018 9: 13 AM [facility] Alanine Aminotransferase 9 7 - 45 U/L 12/23/2018 9:1 3 AM [facility] (ALT), S [facility] Bilirubin, Total, S 0.6 <=1.2 mg/dL 12/23/2018 9:13 AM [facility] Specimen Anatomical Collection Method Collection Time Receive d Time (Source) Location / / Volume Laterality Blood (Blood, 12/23/2018 7:54 AM 12/23/19 19 8:12 Venous) PHERESIS SPECIALIST AM PHERESIS SPECIALIST Angelic Murphy M.D. LAB BLOOD ADD-ON Performing Organization Address City/[facility]/ZIP Code Phon e Number [facility] - [address] [place] [id number] [facility] CBC without Differential (12/23/2018 7:54 AM PHERESIS SPECIALIST) [facility] gist Method Time Signature Hemoglobin 13.8 11.6 - 12/23/2018 [facility] 15.0 g/dL 8:26 AM PHERESIS SPECIALIST [facility] - [facility] Hematocrit 41.4 35.5 - 12/23/2018 [facility] 44.9 % 8:26 AM [facility]ERESIS SPECIALIST [facility] - [facility] Erythrocytes 4.46 3.92 - 12/23/2018 [facility] 5.13 8:26 AM PHERESIS SPECIALIST LABORATORIES - x10(12)/L [facility] MCV 92.8 78.2 - 12/23/2018 [facility] 97.9 fL 8:26 AM [facility] SPECIALIST [facility] - [facility] RBC Distrib Width 13.7 12.2 - 12/23/2018 [facility] 16.1 % 8:26 AM [facility]IST [facility] - [facility] Platelet Count 306 157 - 371 12/23/2018 [facility] x10(9)/L 8:26 AM [facility] - [facility] Leukocytes 6.1 3.4 - 9.6 12/23/2018 [facility] x10(9)/L 8:26 AM [facility] - [facility] Specimen Anatomical Collection Method Collection Time Receive d Time (Source) Location / / Volume Laterality Blood (Blood, 12/23/2018 7:54 AM 12/23/19 19 8:12 Venous) PHERESIS SPECIALIST AM PHERESIS SPECIALIST Angelic Murphy M.D. LAB BLOOD ADD-ON Performing Organization Address City/State/ZIP Code Phon e Number [facility] - [address] [place] [phone] [facility] documented in this encounter Visit Diagnoses Diagnosis Crohn's Disease (HCC) - Primary documented in this encounter
--- OUTSIDE RECORDS SUMMARY | 2022-08-31 12:40 | XMS_ITS | Encounter Summary ---
:1994 Author Organization [facility] Address [address] [place] [address] Care Team Providers Name Role Phone Unavailable Primary Care Provider Unavailable Reason for Visit Reason Onset Date Comments Patient called 10/01/2018 Encounter Details Date Type Department Care Team Description 10/01/2018 Clinical Division of Angelic Murphy, Patient called Communication Gastroenterology in [address] [place] [address] [phone] Social History Tobacco Use Types Packs/Day Years [...] or slept in a penitentiary (including now)? Sex Assigned at Date Recorded Female 07/18/2021 2:49 PM CDT documented as of this encounter Miscellaneous Notes Telephone Encounter - Angelic Murphy M.D. - 10/01/2018 5:44 PM CST Phone note I called Ms. Mcdonald. I discussed the treatment plan. I requested the Stelara infusion and waiting for it to be scheduled. I also ordered the Stelara injections. Insurance needs Stelara infusion givenbefore the approve the injection. I also discussed with her the we are going to start 6 MP to prevent antibody formation. She continued to do well clinically. She had a question regarding not doing anytreatment at this point. I explained to her the patient water in deep remission has about 50% chanceof relapsing. ADVISER documented in this encounter Plan of Treatment Not on filedocumented as of this encounter Visit Diagnoses Not on filedocumented in this encounter
--- OUTSIDE RECORDS SUMMARY | 2022-08-31 12:40 | XMS_ITS | Encounter Summary ---
:1994 Author Organization [facility] Address [address] [place] [address] Care Team Providers Name Role Phone Unavailable Primary Care Provider Unavailable Encounter Details Date Type Department Care Team Description 12/25/2018 Orders Only Division of Angelic Murphy, Crohn's Diseas e Gastroenterology in M.D. ([facility]) (Primary Dx) [place], [place] [address] [place] [address] [address] [place] [address] [place] [address] [phone] Social History Tobacco Use Types Packs/Day Years [...]
--- OUTSIDE RECORDS SUMMARY | 2022-08-31 12:40 | XMS_ITS | Encounter Summary ---
:1994 Author Organization [facility] Address [address] [place] [address] Care Team Providers Name Role Phone Unavailable Primary Care Provider Unavailable Reason for Visit Reason Onset Date Comments Laurel called 04/03/2019 Encounter Details Date Type Department Care Team Description 04/03/2019 Clinical Communication Division of Angelic Murphy Mary called Gastroenterology in [address] [place] [address] [phone] Social History Tobacco Use Types Packs/Day Years [...] or slept in a half-way (including now)? Sex Assigned at Date Recorded Female 07/18/2021 2:49 PM CDT documented as of this encounter Plan of Treatment Not on filedocumented as of this encounter Visit Diagnoses Not on filedocumented in this encounter
--- OUTSIDE RECORDS SUMMARY | 2022-08-31 12:40 | XMS_ITS | Encounter Summary ---
:1994 Author Organization [facility] Address [address] [place] [address] Care Team Providers Name Role Phone Unavailable Primary Care Provider Unavailable Reason for Visit Reason Onset Date Comments Patient called 03/26/2019 Encounter Details Date Type Department Care Team Description 03/26/2019 Clinical Division of Angelic Murphy, Patient called Communication Gastroenterology in [address] [place] [address] [phone] Social History Tobacco Use Types Packs/Day Years [...] this encounter Miscellaneous Notes Telephone Encounter - Milla Soto - 03/27/2019 9:35 AM CDT awas documented in this encounter Plan of Treatment Not on filedocumented as of this encounter Results Ustekinumab and Anti-Ustekinumab A, - Sent Out LAB (03/27/2019 1:40 PM CDT) [facility] Method Time Signature Dose mg n/a mg 03/30/2019 [facility] 12:30 PM CDT [facility] Interval weeks n/a wk 03/30/2019 INFORM 12:30 PM CDT [facility] Ustekinumab 2.5 ug/mL 04/07/2019 INFORM Drug Level 8:10 AM CDT [facility] Anti-Ustekinuma Not detected AU/mL 04/07/2019 INFORM b Antibody 8:10 AM CDT [facility] Comment: ----ADDITIONAL INFORMATION---- Interpretive Guide: Ustekinumab Trough [...] and its perfo rmance characteristics determined by [employer]. The test has not been cleared or [...] Location / / Volume Laterality Blood (Blood, 03/27/2019 1:40 PM 05/20/20 19 Venous) CDT 12:30 PM CDT Angelic Murphy M.D. LAB BLOOD NON ADD-ON Performing Organization Address City/State/ZIP Code Phon e Number [facility] [address] [place] [address] documented in this encounter Visit Diagnoses Diagnosis Crohn's Disease (HCC) - Primary documented in this encounter
--- OUTSIDE RECORDS SUMMARY | 2022-08-31 12:40 | XMS_ITS | Encounter Summary ---
:1994 Author Organization [facility] Address [address] [place] [address] Care Team Providers Name Role Phone Unavailable Primary Care Provider Unavailable Encounter Details Date Type Department Care Team Description 01/12/2019 Clinical Communication Division of Angelic Murphy, Gastroenterology in [address] [place] [phone] [phone] Social History Tobacco Use Types Packs/Day Years [...] or slept in a detention (including now)? Sex Assigned at Date Recorded Female 07/18/2021 2:49 PM CDT documented as of this encounter Miscellaneous Notes Telephone Encounter - Angelic Murphy M.D. - 01/12/2019 5:49 PM CST Phone note I called Ms. Mcdonald. MR enterography was unremarkable. There is no small-bowel obstruction or penetrating disease. She continues to be on Stelara and 6 MP. She started Stelara in October. She has normal CRP. Her last colonoscopy in July 2018 was normal. She complains of postprandial abdominal pain. The pain is stabbing immediately after eating with minutes. There is no correlation with bowel movements. She also has nausea at night.. #1 Crohn colitis #2 Postprandial abdominal pain It is reassuring that the MR enterography did not show small-bowel disease. She denies any diarrhea.Her last colonoscopy showed that she was in remission. I suspect that her pain is secondary to otheretiology rather than Crohn disease. She noticed the dairy product makes her pain worse. She can do atrial of avoiding dairy products and monitor her pain. I also asked her to take FDgard. [employer]ING documented in this encounter Plan of Treatment Not on filedocumented as of this encounter Visit Diagnoses Not on filedocumented in this encounter
--- OUTSIDE RECORDS SUMMARY | 2022-08-31 12:40 | XMS_ITS | Encounter Summary ---
:1994 Author Organization [facility] Address [address] [place] [address] Care Team Providers Name Role Phone Belkys Marshall APRN C.N.P., M.S. Primary Care Provider [phone] Reason for Visit Reason Onset Date Comments Med Refill 11/17/2019 Encounter Details Date Type Department Care Team Description 11/17/2019 Refill Division of Gastroenterology in [facility] Reji R, Med Refill [place], [place] [address] [place] [address] [place] [address] [place], [place] [phone] (Wo rk) Social History Tobacco Use Types [...] Diagnoses Diagnosis Nausea documented in this encounter Care Teams Parquet Floor Layer Relationship Specialty Start Date End Date Belkys Marshall, KARL, C.N.P., M.S. PCP - General Family Medicine 11/16/19 [address] [place] [address] documented as of this encounter
--- OUTSIDE RECORDS SUMMARY | 2022-08-31 12:40 | XMS_ITS | Encounter Summary ---
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 [address] [place], [place] [address] Referral ID Status Reason Start Date Expiration Date Visits Requ ested Visits Authorized [id number] Closed 08/27/2019 08/26/2020 1 1 Encounter Details Date Type Department Care Team Description 09/28/2019 Comprehensive Visit Division of Myrna Levine Abnormal Thyroid Blood Test (Primary Dx); Endocrinology in Kasey Archer, M.S. Elevated Cortisol Level; [place], [place] [address] [facility] Iodine Deficiency Related Di ffuse Endemic Goiter [address] [facility] [address] [facility], [address] [place] [id number] Social History Tobacco Use Types Packs/Day Years [...] Sign Reading Time Taken Comments Blood Pressure 105/70 09/28/2019 1:13 PM LIFE MANAGEMENT TEACHER Pulse 86 09/28/2019 1:13 PM LIFE MANAGEMENT TEACHER Temperature - - Respiratory Rate - - Oxygen Saturation - - Inhaled Oxygen Concentration - - Weight 64.7 kg (142 lb 10.2 oz) 09/28/2019 1:13 PM LIFE MANAGEMENT TEACHER Height 168.1 cm (5' 6.18) 09/28/2019 1:13 PM with boot s LIFE MANAGEMENT TEACHER Body Mass Index 22.9 09/28/2019 1:13 PM LIFE MANAGEMENT TEACHER documented in this encounter Consult Notes Myrna Levine M.D. - 09/28/2019 1:30 PM CST This is a very pleasant 24 y.o. female referred here by Yari Crane C.N.P. for abnormal thyroid tests and Amador's goiter. She was being evaluated for fatigue and the TSH was found to be lower than normal with a normal Free T4. A thyroid ultrasound demonstrated goiter and findings consistent with the elevated TPO antibody/Amador's. She denies any weight changes, constipation. She has noticed at times that she has a heart rate in the 110s to 120s, usually around 2am while at work on night shifts and sometimes when lying down to sleep. This is not limited in terms of activityor irregular in nature. Patient Active Problem List Diagnosis ??? Asthma NOS ??? Asthma NOS ??? Colitis Crohn's (HCC) Current Outpatient Medications: ??? albuterol (for_PROVENTIL HFA,VENTOLIN HFA) 90 mcg/actuation inhaler, Inhale 1-2 puffs., Disp: , Rfl: ??? ketoconazole (NIZORAL) 2 % cream, Apply topically., Disp: , Rfl: ??? mercaptopurine (PURINETHOL) 50 mg tablet, Take 1 tablet (50 mg total) by mouth daily. Take on anempty stomach., Disp: 90 tablet, Rfl: 3 ??? norethindrone (CHIOMA) 0.35 mg tablet, Take 0.35 mg by mouth., Disp: , Rfl: ??? nortriptyline (PAMELOR) 25 mg capsule, TAKE 1 CAPSULE AT BEDTIME, Disp: 60 capsule, Rfl: 3 ??? ondansetron ODT (ZOFRAN-ODT) 4 mg disintegrating tablet, PLACE 1 TABLET ON THE TONGUE THREE TIMES A DAY, Disp: 30 tablet, Rfl: 0 ??? ustekinumab (STELARA) 90 mg/mL injection, Inject 1 mL (90 mg total) under the skin every 8 (eight) weeks., Disp: 6 mL, Rfl: 0 Social History Tobacco Use ??? Smoking status: Never Smoker ??? Smokeless tobacco: Never Used Substance Use Topics ??? Alcohol use: No Frequency: Never Drinks per session: Patient refused Binge frequency: Never ??? Drug use: No Family History Problem Relation Age of Onset ??? Hyperlipidemia Father ??? Asthma Brother ??? Migraines Sister General: Well-developed, well-nourished female in no acute distress. BP 105/70 (BP Location: Left arm, Patient Position: Sitting) Pulse 86 Ht 168.1 cm Comment: with boots Wt 64.7 kg BMI 22.90 kg/m?? Thyroid: Palpable with swallow without nodules and mild symmetric enlargement about 1.5 x normal. Heart: regular rate and rhythm, S1 S2 without murmurs, rubs or gallops. Lungs: clear to auscultation. Abdomen: non-distended, positive bowel sounds, soft, nontender without mass or hepatosplenomegaly. Extremities: no cyanosis, clubbing or edema Neuro: reflexes 2+ without delay A/P: #1 Amador's thyroiditis, mild goiter #2 Subclinical hyperthyroidism We reviewed her test results that show a subclinical hyperthyroidism as of August. We reviewed thatHashimoto's is generally associated with hypothyroidism. We will check other antibodies given that she has family history of both hyper and hypothyroidism in a paternal aunt and paternal grandmother res pectively. She also has a personal history of Crohn's which is in remission. If she does have persistent subclinical hyperthyroidism we reviewed options including Propranolol p.r.n. for very mild disease in to see if this helps with her heart rate and any of her fatigue. However my suspicion is low that this is the sole cause of her fatigue especially since she describes waking up not feeling refreshed. I would recommend that she review with her primary care physician whether she should have a consultation for Sleep Medicine. If she has converted to hypothyroidism which is more likely in the future as well, we could initiatelevothyroxine to see if this helps somewhat. But again it would be unusual to affect sleep in this manner. Finally if she has progressed to more of clinical hyperthyroidism, options might include a lowdose of methimazole. Her ultrasound does not suggest the presence of large enough looking nodules that I would think about doing scan unless she develops clinical hyperthyroidism to consider whether she might have 1 sole nodule that might be active in could be ablated. We will follow-up by the portal on results from today and any treatment options. But she understandsthat they will more likely need to pursue additional evaluations for other causes of fatigue. MANAGEMENT TEACHER documented in this encounter Plan of Treatment Not on filedocumented as of this encounter Results Thyrotropin receptor antibody (09/28/2019 2:12 PM LIFE MANAGEMENT TEACHER) athologist Signature Thyrotropin <1.00 0.00 - 09/28/2019 [facility] Receptor Ab, S 1.75 IU/L 5:33 PM LIFE MANAGEMENT TEACHER Comment: ----ADDITIONAL INFORMATION---- At a decision limit of 1.75 IU/L, this a ssay has 97% sensitivity and 99% specificity for detection of Graves' disease. In healthy individuals and in patients with thyroid disease without diagnosis of Graves' disease, th e upper limit of anti-TSHR values are 1.22 IU/L and 1.58 IU/L, respectively (97.5th percenti les). Specimen Anatomical Collection Method Collection Time Receive d Time (Source) Location / / Volume Laterality Blood (Blood, 09/28/2019 2:12 PM 09/28/20 4:52 Venous) LIFE MANAGEMENT TEACHER PM LIFE MANAGEMENT TEACHER Myrna Levine M.D., M.S. LAB BLOOD ADD-ON Performing Organization Address City/[facility]/ZIP [facility] [place] [facility] [address] [place], [place] [address] [facility] [place] [address] Laboratory Medicine and Pathology [address] [place] Thyroid-Stimulating Immunoglobulin (TSI) (09/28/2019 2:12 PM LIFE MANAGEMENT TEACHER) athologist Signature Thyroid-Stimula <1.0 <=1.3 TSI 10/01/2019 DT ting index 4:09 PM LIFE MANAGEMENT TEACHER Immunoglob, S Specimen Anatomical Collection Method Collection Time Receive d Time (Source) Location / / Volume Laterality Blood (Blood, 09/28/2019 2:12 PM 09/28/20 2:52 Venous) LIFE MANAGEMENT TEACHER PM LIFE MANAGEMENT TEACHER Myrna Levine M.D., M.S. LAB BLOOD ADD-ON Performing Organization Address City/[facility] Phon e Number [facility] - [address] [place], [place] [address] [place] [address] Laboratories-[facility] [address] T3 (Triiodothyronine), Total (09/28/2019 2:12 PM LIFE MANAGEMENT TEACHER) athologist Signature T3 107 80 - 200 09/28/2019 DTL (Triiodothyroni ng/dL 3:49 PM LIFE MANAGEMENT TEACHER ne), Total, S Specimen Anatomical Collection Method Collection Time Receive d Time (Source) Location / / Volume Laterality Blood (Blood, 09/28/2019 2:12 PM 09/28/20 2:24 Venous) LIFE MANAGEMENT TEACHER PM LIFE MANAGEMENT TEACHER Myrna Levine M.D., M.S. LAB BLOOD ADD-ON Performing Organization Address City/[facility] Code Phon e Number [facility] - [address] [place], [place] [address] [place] [id number] [place] [address] T4 (Thyroxine), Free (09/28/2019 2:12 PM LIFE MANAGEMENT TEACHER) athologist Signature T4 (Thyroxine), 1.1 0.9 - 1.7 09/28/2019 DTL Free, S ng/dL 3:49 PM LIFE MANAGEMENT TEACHER Specimen Anatomical Collection Method Collection Time Receive d Time (Source) Location / / Volume Laterality Blood (Blood, 09/28/2019 2:12 PM 09/28/20 2:24 Venous) LIFE MANAGEMENT TEACHER PM LIFE MANAGEMENT TEACHER Myrna Levine M.D., M.S. LAB BLOOD ADD-ON Performing Organization Address City/[facility]/ZIP Code Phon e Number [facility] - [address] [place], [place] [address] [place] [address] [place] [address] [address] [facility] S-TSH (Thyroid-Stimulating Hormone - Sensitive) (09/28/2019 2:12 PM LIFE MANAGEMENT TEACHER) athologist [facility] TSH, Sensitive 2.3 0.3 - 4.2 09/28/2019 DTL mIU/L 3:49 PM LIFE MANAGEMENT TEACHER Specimen Anatomical Collection Method Collection Time Receive d Time (Source) Location / / Volume Laterality Blood (Blood, 09/28/2019 2:12 PM 09/28/20 2:24 Venous) LIFE MANAGEMENT TEACHER PM LIFE MANAGEMENT TEACHER Myrna Levine M.D., M.S. LAB BLOOD ADD-ON Performing Organization Address City/[facility]/ZIP Code Phon e Number [facility] - [address] [place], [place] [address] [facility] [place] [address] [facility] [address] [facility] documented in this encounter Visit Diagnoses Diagnosis Abnormal Thyroid Blood Test - Primary Elevated Cortisol Level Iodine Deficiency Related Diffuse Endemi c Goiter documented in this encounter
--- OUTSIDE RECORDS SUMMARY | 2022-08-31 12:40 | XMS_ITS | Encounter Summary ---
:1995 Author Organization [facility] Address [address] [place] [address] Care Team Providers Name Role Phone Unavailable Primary Care Provider Unavailable Encounter Details Date Type Department Care Team Description 09/21/2018 Orders Only Division of Angelic Murphy, Crohn's Diseas e Gastroenterology in M.D. ([facility]) (Primary Dx) [place], [place] [address] [place] [address] [address] [place] [address] [place] [address] [phone] Social History Tobacco Use Types Packs/Day Years [...]
--- OUTSIDE RECORDS SUMMARY | 2022-08-31 12:40 | XMS_ITS | Encounter Summary ---
:1995 Author Organization [facility] Address [address] [place] [address] Care Team Providers Name Role Phone Unavailable Primary Care Provider Unavailable Reason for Visit Reason Onset Date Comments Laurel Mcdonald called 10/21/2018 Encounter Details Date Type Department Care Team Description 10/21/2018 Clinical Division of Angelic Murphy Mary Harry Communication Gastroenterology in M.D. called [place], [place] [address] [place] [address] [place] [id number] [phone] Social History Tobacco Use Types Packs/Day Years [...] 1 to 4 times per year 11/11 [employer] services? Do you belong to any clubs [...]
--- OUTSIDE RECORDS SUMMARY | 2022-08-31 12:40 | XMS_ITS | Encounter Summary ---
:1995 Author Organization [facility] Address [address] [place] [address] Care Team Providers Name Role Phone Unavailable Primary Care Provider Unavailable Encounter Details Date Type Department Care Team Description 08/28/2019 Hospital Encounter Department of Yari Crane, Hepatomegaly Radiology, [facility], in [address] [facility] [address] [place], [place] [address] [facility] [address] [place], [place] [phone] (Wo rk) [address] [phone] Social History Tobacco Use Types Packs/Day Years [...] Refills Start Date End Date ketoconazole (NIZORAL) Apply topically. 0 019 03/02/2020 2 % cream albuterol Inhale 1-2 puffs. 0 02/10/2017 020 (for_PROVENTIL HFA,VENTOLIN HFA) 90 mcg/actuation inhaler EPINEPHrine (EPIPEN) Inject 0.3 mL (0.3 mg 0.6 each 2 04/1109/28/2019 0.3 mg/0.3 mL total) intramuscularly injection syringe once for 1 dose. Inject into the thigh. HUMIRA PEN 40 mg/0.8 0 08/15/201709/11 mL pen injector kit mercaptopurine Take 1 tablet (50 mg 90 tablet 3 11/03/2018 10/11/2019 (PURINETHOL) 50 mg total) by mouth daily. tabletIndications: Take on an empty Crohn's Disease (HCC) stomach. mometasone-formoterol Inhale 2 puffs. 0 7 09/28/2019 (for_DULERA 200) 200-5 mcg/actuation inhaler norethindrone Take 0.35 mg by mouth. 0 08/02/2017 01/22/2020 (CHIOMA) 0.35 mg tablet nortriptyline TAKE 1 CAPSULE AT 60 capsule 3 05/28/201905/2020 (PAMELOR) 25 mg BEDTIME capsuleIndications: Nausea ondansetron (ZOFRAN) 4 Take 1 tablet (4 mg 30 tablet 1 08/1209/28/2019 mg tabletIndications: total) by mouth daily Nausea as needed for nausea or vomiting. ondansetron ODT PLACE 1 TABLET ON THE 30 tablet 0 9 07/29/2020 (ZOFRAN-ODT) 4 mg TONGUE THREE TIMES A disintegrating DAY tabletIndications: Nausea ustekinumab (STELARA) Inject 1 mL (90 mg 6 mL 0 201710/13/2019 90 mg/mL total) under the skin injectionIndications: every 8 (eight) weeks. Crohn's Disease (HCC) documented as of this encounter Plan of Treatment Not on filedocumented as of this encounter Procedures Procedure Name Priority Date/Time Associated Comments Diagnosis US ABDOMEN RAD - Routine 08/28/2019 3:37 Hepatomegaly Results for this COMPLETE (most inpatients PM CDT procedure a re in and all the results outpatients) section. documented in this encounter Results US Abdomen Complete (08/28/2019 3:37 PM CDT) Anatomical Region Laterality Modality Abdomen, Ultrasound RST LOS, Ultrasound ARZ LOS, Ultrasound FLA N/A Ultrasound LOS Specimen (Source) Anatomical Collection Method Collection Time Re ceived Time Location / / Volume Laterality 08/28/2019 3:43 PM CDT Impressions 08/28/2019 3:45 PM CDT 1. Normal hepatic parenchyma without focal mass. 2. Tiny gallbladder polyps do not requir e follow-up however given patient's young age, one year follow-up to ensure stability would be reasonable. Narrative 08/28/2019 3:45 PM CDT EXAM: US ABDOMEN COMPLETE COMPARISON: None FINDINGS: Liver: Normal. ??No masses or abnormal p arenchyma. Gallbladder: There are 2 tiny gallbladde r polyps, the largest measuring 3 mm. Intrahepatic ducts: Not dilated. Common duct: Not dilated. Pancreas: Normal where seen. Right kidney: ?? Length:10.0 cm. Normal echogenicity. No hydronephrosis. Left kidney: ?? Length:10.0 cm. Normal echogenicity. No hydronephrosis. Spleen: Normal. ??Spleen length:10.6 cm Aorta: Normal caliber. IVC: Normal where seen. Ascites: ??None. Procedure Note Mian Higgins M.D. - 08/28/2019Formatti ng of this note might be different from the original. EXAM: US ABDOMEN COMPLETE COMPARISON: None FINDINGS: Liver: Normal. No masses or abnormal par enchyma. Gallbladder: There are 2 tiny gallbladde r polyps, the largest measuring 3 mm. Intrahepatic ducts: Not dilated. Common duct: Not dilated. Pancreas: Normal where seen. Right kidney: Length:10.0 cm. Normal echogenicity. No hydronephrosis. Left kidney: Length:10.0 cm. Normal echogenicity. No hydronephrosis. Spleen: Normal. Spleen length:10.6 cm Aorta: Normal caliber. IVC: Normal where seen. Ascites: None. IMPRESSION: 1. Normal hepatic parenchyma without foc al mass. 2. Tiny gallbladder polyps do not requir e follow-up however given patient's young age, one year follow-up to ensure stability would be reasonable. Yari RAMIREZ US PROCEDURES documented in this encounter Visit Diagnoses Diagnosis Hepatomegaly documented in this encounter
--- OUTSIDE RECORDS SUMMARY | 2022-08-31 12:40 | XMS_ITS | Encounter Summary ---
:1994 Author Organization [facility] Address [address] [place] [address] Care Team Providers Name Role Phone Belkys Marshall APRN, C.N.Mame., M.S. Primary Care Provider [phone] Reason for Visit Reason Comments Med Refill Encounter Details Date Type Department Care Team Description 11/23/2019 Refill Division of Gastroenterology in Angelic Murphy M.D. Med Refill [address] [place] [address] [place] [address] [phone] Social History Tobacco Use Types Packs/Day Years [...] Notes Telephone Encounter - Kinsey Monsalve - 11/25/2019 9:40 AM CST Prescribed to Leora YSTEM ECOLOGY PROFESSOR documented in this encounter Plan of Treatment Not on filedocumented as of this encounter Visit Diagnoses Diagnosis Nausea documented in this encounter Care Teams Manager Pe Relationship Specialty Start Date End Date Belkys Marshall APRN, C.N.P., M.S. PCP - General Family Medicine 11/16/[address] [place] [address] documented as of this encounter
--- OUTSIDE RECORDS SUMMARY | 2022-08-31 12:40 | XMS_ITS | Encounter Summary ---
:1995 Author Organization [facility] Address [address] [place] [address] Care Team Providers Name Role Phone Unavailable Primary Care Provider Unavailable Encounter Details Date Type Department Care Team Description 08/28/2019 Hospital Encounter Department of Yari Crane [facility]iter [facility], [facility] [address] [facility] [address] [place], [place] [address] [facility] [address] [place], [place] [phone] (Wo rk) [phone] [phone] Social History Tobacco Use Types Packs/Day Years [...] Name Priority Date/Time Associated Comments Diagnosis US THYROID RAD - Routine 08/28/2019 3:36 Goiter Results for this (most inpatients PM CDT procedure a re in and all the results outpatients) section. documented in this encounter Results US Thyroid (08/28/2019 3:36 PM CDT) Anatomical Region Laterality Modality Head and Neck, Ultrasound RST LOS, Ultrasound ARZ LOS, N/A Ultrasound Ultrasound FLA LOS Specimen (Source) Anatomical Collection Method Collection Time Re ceived Time Location / / Volume Laterality 08/28/2019 3:39 PM CDT Impressions 08/28/2019 3:43 PM CDT 1. 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 2. No intermediate or high suspicion thy roid nodules. 3. No cervical adenopathy. Narrative 08/28/2019 3:43 PM CDT EXAM: US THYROID COMPARISON: FINDINGS: The right thyroid lobe measures: 1.3 cmx 1.6 cmx5.2 cm The left thyroid lobe measures: 1.5 cmx1 .7 cmx4.9 cm The isthmus measures: 4 mm in AP diamete r. Thyroid parenchymal evaluation shows: Di ffusely heterogeneous thyroid parenchyma consistent with Amador's thyroiditis. There are 2 subcentimeter slightly hyperechoic nodules or areas of parenchy mal sparing in the mid left thyroid lobe. No intermediate or high suspicion thyroid nodules. Lymph nodes: ??Neck levels 1-7 were surv eyed and demonstrated no abnormal lymph nodes. The thyroid nodule descriptions and shae gories are based on the Thyroid Nodule Care Process Model established by the [facility] [place]. [email or web address]/cnt-[email or web address] Procedure Note Mian Higgins M.D. - 08/28/2019Formatti ng of this note might be different from the original. EXAM: US THYROID COMPARISON: FINDINGS: The right thyroid lobe measures: 1.3 cmx 1.6 cmx5.2 cm The left thyroid lobe measures: 1.5 cmx1 .7 cmx4.9 cm The isthmus measures: 4 mm in AP diamete r. Thyroid parenchymal evaluation shows: Di ffusely heterogeneous thyroid parenchyma consistent with Amador's thyroiditis. There are 2 subcentimeter slightly hyperechoic nodules or areas of parenchy mal sparing in the mid left thyroid lobe. No intermediate or high suspicion thyroid nodules. Lymph nodes: Neck levels 1-7 were survey ed and demonstrated no abnormal lymph nodes. The thyroid nodule descriptions and shae gories are based on the Thyroid Nodule Care Process Model established by the [facility] [place]. [email or web address]/clinical-[email or web address]/[email or web address] IMPRESSION: 1. Heterogeneous parenchyma consistent w ith Amador's thyroiditis. 2. No intermediate or high suspicion thy roid nodules. 3. No cervical adenopathy. Yari RAMIREZ US PROCEDURES documented in this encounter Visit Diagnoses Diagnosis Goiter documented in this encounter
--- OUTSIDE RECORDS SUMMARY | 2022-08-31 12:40 | XMS_ITS | Encounter Summary ---
:1994 Author Organization [facility] Address [address] [place] [address] Care Team Providers Name Role Phone Unavailable Primary Care Provider Unavailable Encounter Details Date Type Department Care Team Description 10/23/2018 Documentation Division of Gastroenterology Saw Angelic traore M.D. in [facility] [address] [facility] [address] [place] [address] [place] [address] [phone] Social History Tobacco Use Types Packs/Day Years [...] or slept in a prison (including now)? Sex Assigned at Date Recorded Female 07/18/2021 2:49 PM CDT documented as of this encounter Progress Notes Angelic Murphy M.D. - 10/23/2018 1:40 PM CST Outpatient summary Ms Mcdonald is 23 yo female who was diagnosed with Crohn's colitis in February 2017. She was initially treated with Remicade however she developed antibodies and had to be switched to Humira and Imuran. She could not tolerate Imuran due to side effects. She had a colonoscopy in August 08, 2018 to follow up response which showed mildly active chronic inflammation. Unfortunately her lab tests revealed that she has developed significantly bodies to Humira > 500. Humira trough was less than 0.8. #1 Crohn colitis Unfortunately she developed antibodies to both Remicade and Humira. We decided to switch her to Stelara in combination with 6 MP to prevent antibody formation. She already received Stelara infusion on October 11. Will start Stelara injections 90 mg every 8 weeks. T SETTER documented in this encounter Plan of Treatment Not on filedocumented as of this encounter Visit Diagnoses Not on filedocumented in this encounter
--- OUTSIDE RECORDS SUMMARY | 2022-08-31 12:40 | XMS_ITS | Encounter Summary ---
:1995 Author Organization [facility] Address [address] [place] [address] Care Team Providers Name Role Phone Unavailable Primary Care Provider Unavailable Reason for Visit MRI/CAT/PET Scan (Routine) - Closed Specialty Diagnoses / Procedures Referred By Contact Refer red To Contact Radiology Diagnoses Crohn's Disease ([facility]) Angelic Murphy M.D. [facility] Procedures MR Abdomen Pelvis Enterography without and with IV Contrast MR Abdomen Pelvis Enterography with IV Contrast [place] ABDOMEN WO/W [facility]TR[place] MRI PELVIS WO/W CNTRST [place] MRI ABDOMEN WO/W CNTRST HC MRI PELVIS WO/W CNTRST [address] [facility] [place] MRI ABDOMEN WO/W CNTRST [place], [place] [address] Referral ID Status Reason Start Date Expiration Date Visits Requ ested Visits Authorized [id number] Closed 12/25/2018 12/25/2019 1 1 Encounter Details Date Type Department Care Team Description 01/06/2019 Hospital Encounter Department of Angelic Murphy Crohn's Disease Radiology, Josh Parks ([facility]) [facility], in [address] [place], [place] [address] [facility] [address] [place], [place] [phone] (Work) [phone] Social History Tobacco Use Types Packs/Day Years [...] - - Weight 63.5 kg (140 lb) 01/06/2019 2:00 PM INTERIOR SYSTEMS CARPENTER Height 165.1 cm (5' 5) 01/06/2019 2:00 PM INTERIOR SYSTEMS CARPENTER Body Mass Index 23.3 01/06/2019 2:00 PM INTERIOR SYSTEMS CARPENTER documented in this encounter Medications at Time of Discharge Medication Sig Dispensed Refills Start Date End Date albuterol Inhale 1-2 puffs. 0 02/10/2017 020 [...] 08/02/2017 01/22/2020 (CHIOMA) 0.35 mg tablet nortriptyline Take 1 capsule (25 mg 60 capsule 3 08/22/2018 05/28/2019 (PAMELOR) 25 mg total) by mouth at capsuleIndications: bedtime. Nausea ondansetron (ZOFRAN) 4 Take 1 tablet (4 mg 30 tablet 1 08/1209/28/2019 mg tabletIndications: total) by mouth daily Nausea as needed for nausea or vomiting. ondansetron ODT Take 1 tablet (4 mg 30 tablet 0 10/01/2018 05/19/2019 (ZOFRAN-ODT) 4 mg total) by mouth 3 disintegrating (three) times a day. tabletIndications: Nausea ustekinumab (STELARA) Inject 1 mL (90 mg 6 mL 0 201710/13/2019 90 mg/mL total) under the skin injectionIndications: every 8 (eight) weeks. Crohn's Disease (HCC) documented as of this encounter Nursing Notes Anna Engle R.N. - 01/06/2019 2:31 PM CST Does patient have a confirmed or suspected gastrointestinal perforation or peritonitis? NO If no???continue Does patient have an allergy to citrus fruit? NO If no???continue Does patient have an allergy to Benzocaine if patient requires a nasogastric tube inserted? NO If no???continue Does patient have current issues with aspiration? NO If no???continue For CT: Has patient had barium in last 72 hours? NO If no???continue Does patient have an ileostomy or total colectomy? NO If yes...use appropriate section of medicationreference document. NOTE: Notify technologist as scan timing may need to be altered. Ask patient to notify nursing when oral contrast starts coming through the ostomy as scan timing may need to be altered. Is patient scheduled for a MREN/perianal fistula study? NO if yes...use appropriate section of medication reference document. NOTE: Notify technologist as scan timing may need to be altered. Ask patient to notify nursing when oral contrast starts coming through the ostomy as scan timing may need to be altered. Does patient currently have an NG tube or requests one to be inserted for contrast administration? NO If yes??? If one needs to be placed, submit an order for the NG tube (per protocol) and insert. For MR: Initiate Glucagon screening as well. For CT: Is the patient scheduled for a Puetz-Jeghers Enterography? NO If yes... continue Does patient have an allergy to Barium sulfate? NO If yes, notify Radiologist. *Administer medications as ordered and as specified in medication reference document. Does patient have an allergy to glucagon? NO If no???continue. Does patient have a history of insulinoma or phenochromocytoma? NO If no???continue. If yes, discusswith Radiologist. Does patient have diabetes? NO If yes???order and obtain RMG. If yes and insulin dependent, provide patient with Glucagon Injections if you Have Diabetes card. What is patient???s glucose? Not diabetic - less than 70 treat f using Hypoglycemia Nurse Initiated Protocol - between 70 and 300 administer medication as ordered. - greater than 300 notify radiologist and do not administer medication. RIOR SYSTEMS CARPENTER documented in this encounter Plan of Treatment Not on filedocumented as of this encounter Procedures Procedure Name Priority Date/Time Associated Comments Diagnosis MR ABDOMEN PELVIS RAD - Routine 01/06/2019 4:35 Crohn's Disease Res ults for this ENTEROGRAPHY (most inpatients PM INTERIOR SYSTEMS CARPENTER (HCC) procedure a re in WITHOUT AND WITH IV and all the resu lts CONTRAST outpatients) section. documented in this encounter Results MR Abdomen Pelvis Enterography without and with IV Contrast (01/06/2019 4:35 PM INTERIOR SYSTEMS CARPENTER) Anatomical Region Laterality Modality Abdomen, Pelvis, Abdominal RST LOS, Abdominal ARZ LOS, N/A Magnetic Resonance Abdominal FLA LOS Specimen (Source) Anatomical Collection Method Collection Time Re ceived Time Location / / Volume Laterality 01/07/2019 7:51 AM INTERIOR SYSTEMS CARPENTER Impressions 01/07/2019 9:07 AM INTERIOR SYSTEMS CARPENTER IMPRESSION: ?? Normal small bowel. No obstruction or pe netrating disease. Narrative 01/07/2019 9:07 AM INTERIOR SYSTEMS CARPENTER EXAM: ??MR ABDOMEN PELVIS ENTEROGRAPHY WITHOUT AND WITH IV CONTRAST COMPARISON: ??MR enterography dated 05/2017. CT abdomen/pelvis with intravenous contrast dated 02/27/2017. FINDINGS: ?? The small bowel is normal in caliber and enhancement. Nothing for active inflammation. ??No evidence of penetrati ng disease. Previously seen colonic inflammatory changes have resolved. Mild right-sided pelviectasis, which is slightly more prominent compared with the prior MR from 05/17/2017. The right kidney is otherwise unremarkable. The liver, gallbladder, pancreas, left kidne y, and adrenal glands are negative. Normal follicular activity in the ovarie s. Left corpus luteal cyst. Normal appearance of the uterus. Trace free flu id in the pelvis, likely physiologic. Procedure Note Marlon Sanchez M.D. - 01/07/2019Formatt ing of this note might be different from the original. EXAM: MR ABDOMEN PELVIS ENTEROGRAPHY WIT HOUT AND WITH IV CONTRAST COMPARISON: MR enterography dated 2016. CT abdomen/pelvis with intravenous contrast dated 02/27/2017. FINDINGS: The small bowel is normal in caliber and enhancement. Nothing for active inflammation. No evidence of penetrating disease. Previously seen colonic inflammatory changes have resolved. Mild right-sided pelviectasis, which is slightly more prominent compared with the prior MR from 05/17/2017. The right kidney is otherwise unremarkable. The liver, gallbladder, pancreas, left kidne y, and adrenal glands are negative. Normal follicular activity in the ovarie s. Left corpus luteal cyst. Normal appearance of the uterus. Trace free flu id in the pelvis, likely physiologic. IMPRESSION: Normal small bowel. No obstruction or pe netrating disease. Angelic RAMIREZ MRI PROCEDURES documented in this encounter Visit Diagnoses Diagnosis Crohn's Disease (HCC) documented in this encounter Administered Medications Inactive Administered Medications - up to 3 most recent administrations Medication Order MAR Action Action Date Dose Rate Site gadobutrol injection 0.5-15 mL Given 01/06/2019 4:21 PM INTERIOR SYSTEMS CARPENTER 7 mL (GADAVIST) 0.5-15 mL, intravenous, Once in imaging, contrast, Starting on Sat01/06/19 at 1423, For 1 dose, Imaging Protocol Orders, Dose per Radiant Medication Guidelines glucagon injection 0.5-1 mg (GlucaGen) Given 01/06/2019 4:14 PM INTERIOR SYSTEMS CARPENTER 1 mg 0.5-1 mg, intravenous, Once, On Sat01/06/19 at 1430, For 1 dose, Imaging Protocol Orders sodium chloride (PF) 0.9 % injection 20- 50 mL Given 01/06/2019 4:22 PM INTERIOR SYSTEMS CARPENTER 20 mL 20-50 mL, intravenous, Once, On Sat01/06/19 at 1615, For 1 dose documented in this encounter
--- OUTSIDE RECORDS SUMMARY | 2022-08-31 12:40 | XMS_ITS | Encounter Summary ---
:1995 Author Organization [facility] Address [address] [place] [address] Care Team Providers Name Role Phone Unavailable Primary Care Provider Unavailable Reason for Visit Reason Comments Med Refill Encounter Details Date Type Department Care Team Description 05/19/2019 Refill Division of Gastroenterology in Angelic Murphy M.D. Med Refill [place], [place] [address] [place] [address] [address] [place] [address] [place] [address] [phone] Social History Tobacco Use Types Packs/Day Years [...]
--- OUTSIDE RECORDS SUMMARY | 2022-08-31 12:40 | XMS_ITS | Encounter Summary ---
:1994 Author Organization [facility] Address [address] [place] [address] Care Team Providers Name Role Phone Unavailable Primary Care Provider Unavailable Encounter Details Date Type Department Care Team Description 09/28/2019 Hospital Encounter Department of Myrna Levine Abnor mal Thyroid Laboratory Medicine Kasey, M.S. Blood Test and Pathology, [address] [place] [address] in [facility], [address] [place] [address] [place], [place] [phone] (Work) [phone] Social History Tobacco Use Types Packs/Day Years [...] 11/23/2021 organizations such as sabianist groups, unions, fraIstpika or athletic groups, or school groups? How [...] 2 % Apply topically. 0 03/02/2020 cream albuterol (for_PROVENTIL Inhale 1-2 puffs. 0 12/201607/29/2020 HFA,VENTOLIN HFA) 90 mcg/actuation inhaler mercaptopurine Take 1 tablet (50 90 tablet 3 11/03/201811/2018 (PURINETHOL) 50 mg mg total) by mouth tabletIndications: Crohn's daily. Take on an Disease (HCC) empty stomach. norethindrone (CHIOMA) Take 0.35 mg by 0 017 01/22/2020 0.35 mg tablet mouth. nortriptyline (PAMELOR) 25 TAKE 1 CAPSULE AT 60 capsule 3 11/17/2019 mg capsuleIndications: BEDTIME Nausea ondansetron ODT PLACE 1 TABLET ON 30 tablet 0 05/20/2019 (ZOFRAN-ODT) 4 mg THE TONGUE THREE disintegrating TIMES A DAY tabletIndications: Nausea ustekinumab (STELARA) 90 Inject 1 mL (90 mg 6 mL 0 09/201810/13/2019 mg/mL total) under the injectionIndications: skin every 8 Crohn's Disease (HCC) (eight) weeks. documented as of this encounter Miscellaneous Notes Result Encounter Note - Myrna Levine M.D. - 10/11/2019 11:59 AM CST This is a note to confirm normal test results. There is no evidence for an antibody stimulating thyroid gland so she is more likely to develop hypothyroidism from the Amador's antibody. Thyroid testing though has now normalized. If she develops new symptoms in the future, she can have her primary care provider recheck levels. Myrna Levine CAL EDUCATION SPECIALIST documented in this encounter Plan of Treatment Not on filedocumented as of this encounter Procedures Procedure Name Priority Date/Time Associated Comments Diagnosis THYROID-STIMULATING Routine 09/28/2019 2:12 PM Abnormal Thyroi d Results for this IMMUNOGLOBULIN (TSI), S MEDICAL EDUCATION SPECIALIST Blood Test proc edure are in the results section. THYROTROPIN RECEPTOR Routine 09/28/2019 2:12 PM Abnormal Thyro id Results for this AB, S MEDICAL EDUCATION SPECIALIST Blood Test procedure are i n the results section. T3 (TRIIODOTHYRONINE), Routine 09/28/2019 2:12 PM Abnormal Thy roid Results for this TOT, S MEDICAL EDUCATION SPECIALIST Blood Test procedure are i n the results section. THYROID-STIMULATING Routine 09/28/2019 2:12 PM Abnormal Thyroi d Results for this HORMONE-SENSITIVE MEDICAL EDUCATION SPECIALIST Blood Test procedure are in (S-TSH) the results section. T4 (THYROXINE), FREE, S Routine 09/28/2019 2:12 PM Abnormal Th yroid Results for this MEDICAL EDUCATION SPECIALIST Blood Test procedure are i n the results section. documented in this encounter Results Thyrotropin receptor antibody (09/28/2019 2:12 PM MEDICAL EDUCATION SPECIALIST) P athologist Signature Thyrotropin <1.00 0.00 - 09/28/2019 SDSC Receptor Ab, S 1.75 IU/L 5:33 PM MEDICAL EDUCATION SPECIALIST Comment: ----ADDITIONAL INFORMATION---- At a decision limit [...] (Blood, 09/28/2019 2:12 PM 09/28/20 4:52 Venous) MEDICAL EDUCATION SPECIALIST PM MEDICAL EDUCATION SPECIALIST Myrna Levine M.D., M.S. LAB BLOOD ADD-ON Performing Organization Address City/[facility] [address]/ZIP [facility] Phon e Number [facility] [address] [place], [place] [address] [place] [address] [place] [address] Laboratory Medicine and Pathology [address] [place] Thyroid-Stimulating Immunoglobulin (TSI) (09/28/2019 2:12 PM MEDICAL EDUCATION SPECIALIST) athologist Signature Thyroid-Stimula <1.0 <=1.3 TSI 10/01/2019 DTL ting index 4:09 PM MEDICAL EDUCATION SPECIALIST Immunoglob, S Specimen Anatomical Collection Method Collection Time Receive d Time (Source) Location / / Volume Laterality Blood (Blood, 09/28/2019 2:12 PM 09/28/20 2:52 Venous) MEDICAL EDUCATION SPECIALIST PM MEDICAL EDUCATION SPECIALIST Myrna Levine M.D., M.S. LAB BLOOD ADD-ON Performing Organization Address [facility] [address]/[facility] Phon e Number [facility] - [address] [place], [place] [address] [facility] [place] [address] [facility] [address] T3 (Triiodothyronine), Total (09/28/2019 2:12 PM MEDICAL EDUCATION SPECIALIST) P athologist Signature T3 107 80 - 200 09/28/2019 DTL (Triiodothyroni ng/dL 3:49 PM MEDICAL EDUCATION SPECIALIST ne), Total, S Specimen Anatomical Collection Method Collection Time Receive d Time (Source) Location / / Volume Laterality Blood (Blood, 09/28/2019 2:12 PM 09/28/20 2:24 Venous) MEDICAL EDUCATION SPECIALIST PM MEDICAL EDUCATION SPECIALIST Myrna Levine M.D., M.S. LAB BLOOD ADD-ON Performing Organization Address City/State/ZIP Code Phon e Number [facility] - [address] [place], [place] [address] [place] [address] [place] [address] T4 (Thyroxine), Free (09/28/2019 2:12 PM MEDICAL EDUCATION SPECIALIST) P athologist Signature T4 (Thyroxine), 1.1 0.9 - 1.7 09/28/2019 DT Free, S ng/dL 3:49 PM MEDICAL EDUCATION SPECIALIST Specimen Anatomical Collection Method Collection Time Receive d Time (Source) Location / / Volume Laterality Blood (Blood, 09/28/2019 2:12 PM 09/28/20 2:24 Venous) MEDICAL EDUCATION SPECIALIST PM MEDICAL EDUCATION SPECIALIST Myrna Levine M.D., M.S. LAB BLOOD ADD-ON Performing Organization Address City/State/[facility] Code Phon e Number [facility] - [address] S-TSH (Thyroid-Stimulating Hormone - Sensitive) (09/28/2019 2:12 PM MEDICAL EDUCATION SPECIALIST) athologist Signature TSH, Sensitive 2.3 0.3 - 4.2 09/28/2019 DT mIU/L 3:49 PM MEDICAL EDUCATION SPECIALIST Specimen Anatomical Collection Method Collection Time Receive d Time (Source) Location / / Volume Laterality Blood (Blood, 09/28/2019 2:12 PM 09/28/20 2:24 Venous) MEDICAL EDUCATION SPECIALIST PM MEDICAL EDUCATION SPECIALIST Myrna Levine M.D., M.S. LAB BLOOD ADD-ON Performing Organization Address City/State/[facility] Code Phon e Number [facility] - [address] documented in this encounter Visit Diagnoses Diagnosis Abnormal Thyroid Blood Test documented in this encounter
--- OUTSIDE RECORDS SUMMARY | 2022-08-31 12:40 | XMS_ITS | Encounter Summary ---
:1995 Author Organization [facility] Address [address] [place] [address] Care Team Providers Name Role Phone Belkys Marshall APRN, C.N.P., M.S. Primary Care Provider [phone] Reason for Visit Reason Onset Date Comments Med Refill 11/16/2019 Encounter Details Date Type Department Care Team Description 11/16/2019 Refill Department of Family Medicine, [facility] APRN, Med Refill [facility] Jose Miguel, C. N.P., M.S. in [facility] [address] [place] [address] [place] [address] [place] [address] [phone] Social History Tobacco Use Types Packs/Day Years [...] this encounter Miscellaneous Notes Telephone Encounter - Rhina Chowdhury - 11/16/2019 12:33 PM CST Caller: self Call back number: [phone] Name of medication: mercaptopurine Strength: 50 mg Frequency: once a day Quantity: 30 days with refills Pharmacy: [facility] ([place], [place]) Name of medication: Stelara Strength: 90 mg/mL injection Frequency: once every 8 weeks Quantity: Pharmacy: [facility] ([place], [place]) PCP: Joanna (recently established) [facility], the injection is through specialty pharmacy. ER TENDER documented in this encounter Plan of Treatment Not on filedocumented as of this encounter Visit Diagnoses Diagnosis Crohn's Disease (HCC) documented in this encounter Care Teams Business Development Representative Relationship Specialty Start Date End Date Belkys Marshall APRN, C.N.P., M.S. PCP - General Family Medicine 11/16/19 [address] [place] [phone] documented as of this encounter
--- OUTSIDE RECORDS SUMMARY | 2022-08-31 12:40 | XMS_ITS | Encounter Summary ---
:1995 Author Organization [facility] Address [address] [place] [address] Care Team Providers Name Role Phone Unavailable Primary Care Provider Unavailable Reason for Visit Reason Comments Med Refill Encounter Details Date Type Department Care Team Description 10/04/2018 Refill Division of Gastroenterology in Angelic Murphy M.D. Med Refill [place], [place] [address] [place] [address] [address] [place] [address] [place] [address] [phone] Social History Tobacco Use Types Packs/Day Years [...] slept in a long term (including now)? Sex Assigned at Date Recorded Female 07/18/2021 2:49 PM CDT documented as of this encounter Plan of Treatment Not on filedocumented as of this encounter Visit Diagnoses Not on filedocumented in this encounter
--- OUTSIDE RECORDS SUMMARY | 2022-08-31 12:40 | XMS_ITS | Encounter Summary ---
:[address] [facility] Address [address] [place] [address] Care Team Providers Name Role Phone Unavailable Primary Care Provider Unavailable Reason for Visit Reason Comments Med Refill Encounter Details Date Type Department Care Team Description 10/11/2019 Refill Division of Gastroenterology in [facility], Med Refill [place], [place] M.DJulia [address] [facility] [address] [place] [address] [place], [place] [phone] (Wo rk) Social History Tobacco Use Types [...]
--- OUTSIDE RECORDS SUMMARY | 2022-08-31 12:41 | XMS_ITS | Encounter Summary ---
:1995 Author Organization [facility] Address [address] [place] [address] Care Team Providers Name Role Phone Unavailable Primary Care Provider Unavailable Reason for Visit Reason Comments Work Related Injury Back pain injury - injury da te 08/09/17. Employer [employer]. Pt says pain level is at 1 Outpatient (Routine) - Closed Specialty Diagnoses / Procedures Referred By Contact Refer red To Contact Preventive Medicine Diagnoses Jonna Jorgensen [facility] PROGRAM REVIEW DIRECTOR [address] [place] [address] Referral ID Status Reason Start Date Expiration Date Visits Requ ested Visits Authorized [id number] Closed 10/10/2017 04/08/2018 1 1 Encounter Details Date Type Department Care Team Description 11/05/2017 Office Visit Department of Jonna Arizmendi Occupational Medicine A, PROGRAM REVIEW DIRECTOR Subsequent [facility] [place] [address] [facility]) [address] [place] [phone] Social History Tobacco Use Types Packs/Day Years Used Date Smoking Tobacco: Never Smokeless Tobacco: Never Tobacco Cessation: Counseling Given: No Alcohol Habits Answer Date Recorded How often [...] 11/23/2021 organizations such as bahai groups, unions, fraBalls.ie or athletic groups, or school groups? How [...] Sign Reading Time Taken Comments Blood Pressure 112/63 11/05/2017 7:59 AM DOORKEEPER Pulse 93 11/05/2017 7:59 AM DOORKEEPER Temperature - - Respiratory Rate - - Oxygen Saturation - - Inhaled Oxygen Concentration - - Weight - - Height - - Body Mass Index - - documented in this encounter Progress Notes Jonna Arizmendi, KARL, C.N.P. - 11/05/2017 8:15 AM CST ??Employer: 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 ??Pain developed after work incident on 08/09/2017. 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 ??She was helping slide the patient, who was large in habitus, across when she felt immediate pain in her low back, bilateral. The pain was burning quality, constant in nature. ??She had ED evaluation, diagnosed with muscular etiology of her pain. She was making improvements by her initial visit here, and was advised conservative treatment. She has returned to full duties, she is here today for recheck. she is 95% better. Today, she reports pain as 0/10. Describes pain as very intermittent, rare, if felt it is at a 1 outof 10, only after long heavy shifts. She is satisfied with her progress. Review of Systems: ROS is negative for pertinant findings. The following portions of the patient's history were reviewed and updated as appropriate: allergies,current medications, medical history, social history, surgical history and problem list Vitals: 11/05/17 0759 BP: 112/63 Pulse: 93 Physical Exam GENERAL: Alert, relaxed female in no acute distress. ASSESSMENT / PLAN Encounter Diagnosis Name Primary? Sprain Lumbar Subsequent Yes MMI: Yes PPD: No Work Related: Yes Treatment: Lumbar sprain with now only mild, intermittent discomfort after a heavy work shift. The injury itself has likely fully healed; the mild discomfort she is intermittently feels likely secondary to conditioning. She appears to have reached MMI, there is no PPD. Work status: full duty. See attached Report of Injury/Illness for full details. The patient indicates understanding of these issues and agrees with the plan. 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 No orders of the defined types were placed in this encounter. Medications prescribed today: No orders of the defined types were placed in this encounter. 25 minutes spent with patient, 15 minutes spent in counseling, discussion of plan, coordination of care and completion of the return to work document. Thank you for letting me be involved in your care. KEEPER documented in this encounter Plan of Treatment Not on filedocumented as of this encounter Visit Diagnoses Diagnosis Sprain Lumbar Subsequent - Primary documented in this encounter
--- OUTSIDE RECORDS SUMMARY | 2022-08-31 12:41 | XMS_ITS | Encounter Summary ---
:1995 Author Organization [facility] Address [address] [place] [address] Care Team Providers Name Role Phone Unavailable Primary Care Provider Unavailable Encounter Details Date Type Department Care Team Description 08/08/2018 Anesthesia Event Division of Gastroenterology Steven Odonnell, KARL, CASE BRIEFER, DNAP [address] [place] [phone] in [facility] Mohan Abdi, KARL, CASE BRIEFER, MNA [address] [place] [phone] [place] [address] [phone] Anesthesia Record Procedure Summary Procedure Name Responsible Anesthesiologist Anesthesia Start Ti me Anesthesia Stop Time COLONOSCOPY Steven Keller APRN, 08/08/18 1224 08/08/18 1317 CASE BRIEFER, DNAP Events Date Time Event Comment 08/08/2018 1224 In Room 1224 An Start Machine/Equipmen t Checked Infection Precautions Foll owed Procedure/Site Verified NPO Sta tus Verified Supine Standard ASA Mon itors Applied 1233 Turnover to Proceduralist 1243 Proc Start 1257 Proc Fin 1257 Turnover to ANE Staff 1259 Out of Room 1307 an stop data 1317 An End I completed my h andoff [...] questions and acknowledgement of understanding. Name Total propofol 10 mg/mL infusion 267.54 mg propofol 10 mg/mL injection 20 mg lidocaine 2% (mg) injection 60 mg Lactated Ringers Free Drip 0 mL Agents No agents on file. Blood No blood administrations on file. Lines, Drains, and Airways Type Details Placement Removal Peripheral IV Placement Date: 08/08/18; 08/08/18 1228 by 08/08 1335 by Sarah, Placement Time: 1228; Shannon Ureña Cassa ndra L, R.N. Catheter Size: 22 G; R.N., C.M.S.R.N. Orientation: Right; Location: Arm; Site Prep: Alcohol; Technique: Anatomical landmarks; Inserted by: Carri Rojas; Insertion Attempts: 2; Removal Date: 08/08/18; Removal Time: 1334 documented in this encounter Social History Tobacco [...] times do you More than three juan advid es a week 11/23/2021 talk on the [...] encounter OR Notes Anesthesia Postprocedure Evaluation - Steven Keller APRN, CRNA - 08/08/2018 1:18 PM CDT Patient: Laurel Mcdonald Procedure Summary Date: 08/08/18 Room / Location: Division of Gastroenterology in [place], [place] Anesthesia Start: 1224 Anesthesia Stop: 1317 Procedure: COLONOSCOPY Diagnosis: Crohns Disease Of Large Intestine Without Complications (HCC) Scheduled Providers: Niraj Roberts M.D. Responsible Provider: Steven Keller APRN, CRNA Anesthesia Type: MAC ASA Status: 2 Anesthesia Type: MAC Last vitals BP 106/79 (08/08/18 1330) Temp 36.6 ??C (08/08/18 1310) Pulse 81 (08/08/18 1334) Resp 13 (08/08/18 1336) SpO2 100 % (08/08/18 1334) Anesthesia Post Evaluation Patient Disposition: dismissal Cardiovascular status: hemodynamics (HR & BP) acceptable Respiratory status: patent airway with spontaneous effort Temperature: normothermic Oxygen requirements: room air Level of consciousness: awake Pain score: pain adequately controlled and/or at baseline Post Op nausea/vomiting: none Hydration status: euvolemic Anesthesia Preprocedure Evaluation - Steven Keller APRN, CRNA - 08/08/2018 12:48 PM CDT Anesthesia Pre-Evaluation Pertinent components of the patient's history including current problem list, medical history, surgical history, family history, social history, medications and allergies were reviewed and updated as appropriate. The patient was examined and the Pre-op diagnosis, planned procedure, and H&P were reviewed and remain unchanged. PROBLEM LIST Relevant Problems RESP (+) Asthma NOS OBJECTIVE PHYSICAL EXAMINATION Airway (HEENT) Mallampati: I TM Distance: >3 FB Neck ROM: Full Cardiovascular Rhythm: Regular Rate: Normal Cardiovascular Assessment: Normal Pulmonary Pulmonary Assessment: Clear Neurological Normal Dental Normal General / Constitutional Normal ASSESSMENT / PLAN ANESTHESIA PLAN ASA: 2 Anesthesia Plan: MAC MAC with propofol, fentanyl, zofran and lidocaine. Patient seen and allergies reviewed; anesthesia plan and risks discussed directly with patient / legal guardian, or through an vice president of talent management; patient evaluated and approved for anesthesia / sedation. Use of blood products discussed with patient who consented to blood products. documented in this encounter Plan of Treatment Not on filedocumented as of this encounter Visit Diagnoses Not on filedocumented in this encounter Administered Medications Inactive Administered Medications - up to 3 most recent administrations Medication Order MAR Action Action Date Dose Rate Site lactated ringers New Bag 08/08/2018 12:24 PM CDT intravenous, Continuous Infusion: Per Instructions PRN, Starting on Sat08/08/18 at 1224, Anesthesia Intra-op lidocaine (PF) (cardiac) injection Given 08/08/2018 12:33 PM CDT 60 mg intravenous, As needed, Starting on Sat08/08/18 at 1233, Anesthesia Intra-op propofol 10 mg/mL infusion Rate/Dose 08/08/2018 180 mcg/kg/min 68.8 mL/hr (DIPRIVAN) Change 12:39 PM CDT intravenous, Continuous Infusion: Per Instructions PRN, Starting on Sat08/08/18 at 1233, Anesthesia Intra-op New Bag 08/08/2018 12:33 PM CDT 160 mcg/kg/min 61.2 mL/hr propofol injection (DIPRIVAN) Given 08/08/2018 12:33 PM CDT 20 mg intravenous, As needed, Starting on Sat08/08/18 at 1233, Anesthesia Intra-op documented in this encounter
--- OUTSIDE RECORDS SUMMARY | 2022-08-31 12:41 | XMS_ITS | Encounter Summary ---
:1995 Author Organization [facility] Address [address] [place] [address] Care Team Providers Name Role Phone Unavailable Primary Care Provider Unavailable Reason for Referral Outpatient (Routine) - Closed Specialty Diagnoses / Procedures Referred By Contact Refer red To Contact Preventive Medicine Diagnoses Sprain Lumbar Subsequent Shazia Garcia M.D., M.P.H. [address] [place] [phone] Referral ID Status Reason Start Date Expiration Date Visits Requ ested Visits Authorized [id number] Closed 09/03/2017 03/02/2018 1 1 Encounter Details Date Type Department Care Team Description 09/03/2017 Orders Only Department of Shazia Garcia Sprain Lum bar Occupational Medicine Kasey, M.P. H. Subsequent in Thaddeus Morrissey, [address] [place] [address] [address] [facility] [phone] ALESSANDRO RILEY [phone] (Work) [phone] Social History Tobacco Use Types Packs/Day Years Used Date Smoking Tobacco: Never Alcohol Habits Answer Date Recorded How often [...] or slept in a usp (including now)? Sex Assigned at Date Recorded Female 07/18/2021 2:49 PM CDT documented as of this encounter Plan of Treatment Scheduled Referrals Name Type Priority Associated Order Schedule Diagnoses Preventive Medicine Outpatient Referral Routine Sprain Lumbar Expected: office visit Subsequent 10/01/2017 (clinic) (Approximate), Expires: 10/05/2022 documented as of this encounter Visit Diagnoses Diagnosis Sprain Lumbar Subsequent documented in this encounter
--- OUTSIDE RECORDS SUMMARY | 2022-08-31 12:41 | XMS_ITS | Encounter Summary ---
:1995 Author Organization [facility] Address [address] [place] [address] Care Team Providers Name Role Phone Unavailable Primary Care Provider Unavailable Encounter Details Date Type Department Care Team Description 08/15/2017 Hospital Encounter HX [facility] EHRamona Rowe, COOK CHILI [address] [place], [place] [phone] (Wo rk) Social History Tobacco Use Types [...] or slept in a intermediate (including now)? Sex Assigned at Date Recorded Female 07/18/2021 2:49 PM CDT documented as of this encounter Last Filed Vital Signs Vital Sign Reading Time Taken Comments Blood Pressure 96/54 08/15/2017 8:01 AM CDT Pulse 64 08/15/2017 8:01 AM CDT Temperature - - Respiratory Rate 16 08/15/2017 8:01 AM CDT Oxygen Saturation - - Inhaled Oxygen Concentration - - Weight 62.2 kg (137 lb 2 oz) 08/15/2017 8:01 AM CDT Height 165 cm (5' 4.96) 08/15/2017 8:01 AM CDT Body Mass Index 22.85 08/15/2017 8:01 AM CDT documented in this encounter Medications at Time of Discharge Medication Sig Dispensed Refills Start Date End Date albuterol (for_PROVENTIL Inhale 1-2 puffs. 0 12/201607/29/2020 HFA,VENTOLIN HFA) 90 mcg/actuation inhaler CALCIUM CARB/VIT 1 tablet 2 (two) 0 04/02/2017 D3/MINERALS times a day. (CALCIUM-VITAMIN D ORAL) cholecalciferol Take 1 tablet by 0 04/02/201708/2018 (for_VITAMIN D3) 1,000 mouth daily. Unit tablet ETHINYL Take 1 tablet by 0 11/24/2013 08/08/20 18 ESTRADIOL/DROSPIRENONE mouth daily. (DROSPIRENONE-ETHINYL ESTRADIOL ORAL) HUMIRA PEN 40 mg/0.8 mL 0 08/15/2017 1 11/28/2018 pen injector kit ibuprofen Take 3 tablets by 0 06/29/2014 018 (for_ADVIL,MOTRIN) 200 mg mouth 4 (four) tablet times a day as needed. mesalamine (for_LIALDA) Take 4.8 g by 0 7 08/08/2018 1.2 gram EC tablet mouth. mometasone-formoterol Inhale 2 puffs. 0 7 09/28/2019 (for_DULERA 200) 200-5 mcg/actuation inhaler MOVIPREP 100-7.5-2.691 0 08/01/2017 gram per packet norethindrone (CHIOMA) Take 0.35 mg by 0 017 01/22/2020 0.35 mg tablet mouth. oxyCODONE (for_ROXICODONE) Take 5 mg by mouth. 0 02/10/2017 04/20/2018 5 mg immediate release tablet pantoprazole Take 40 mg by 0 02/10/2017 8 (for_PROTONIX) 40 mg EC mouth. tablet predniSONE (for_DELTASONE) Take 4 tablets (40 0 0 02/10/2017 04/20/2018 10 mg tablet mg) once daily for 1 week then decrease the dose by 1/2 tablet (5 mg) every week until off. rizatriptan (for_MAXALT) Take 10 mg by mouth 0 08/08/2018 10 mg tablet See Admin Instructions. traMADol (for_ULTRAM) 50 0 07/10/2017 04/20/2018 mg tablet documented as of this encounter Consult Notes Jonna Hussein APRN, C.N.P. 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 Pain developed after work incident on 08/09/2017. 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 She was helping slide the patient, who was large in habitus, across when she felt immediate pain in her low back, bilateral. The pain was burning quality, kian nature. She had ED evaluation, diagnosed with muscular etiology of her pain. Given her medical history significant for Chron's disease, she was advised to avoid NSAIDS, use acetaminophen and a prescription of valium was given to utilize as needed. She was allowed to return to full duty activity. Today, she reports 6 out of 10 pain in the bilateral lumbar spine. Now more intermittent in nature,aching/burning quality. It does not radiate. It feels more sore this morning, she just completed a weight shifter. She has worked the last 4 nights in a row, 8 hour duration shifts. Despite this, she doesfeel improved today than on the date of injury. She is using tylenol intermittently. She has not required the valium. She is applying heat and did visit a chiropractor. She has no history significant for lumbar spine pain. She was off of full duty for several months after diagnosed with Chron's disease. She had been working with this department on the return to work process. She was at full duty, shorter duration shifts for several weeks. She returned to full unrestricted duty as of 07/29/2017 and felt things were going well up until this incident. Patient completed the Occupational Medicine Consultation - Patient History intake form, please see this document from today's visit for details. MEDICATIONS albuterol 90 mcg/inh inhalation aerosol, 2 puff(s), Inhalation, 4xDay, PRN Calcium 500+D, 1 tab(s), 2xDay Dulera 200 mcg-5 mcg/inh inhalation aerosol, 2 puff(s), asthma, Inhalation, 2xDay Humira, 40 mg, Subcut., Once ibuprofen 200 mg oral tablet, 600 mg, 3 tab(s), PO, 4xDay, PRN Loryna oral tablet, 1 tab(s), menses, PO, Daily Remicade, 5 mg/kg, IV rizatriptan 10 mg oral tablet, 10 mg, PO, As Directed, PRN Vitamin D3 1000 intl units oral tablet, 1,000 IntU, 1 tab(s), PO, Daily ALLERGIES codeine (vomiting) PAST MEDICAL HISTORY Chronic Asthma NOS (493.90) Crohn's Disease NOS Historical No historical problems SOCIAL HISTORY Tobacco: denies Smoking Status: denies Alcohol: denies Recreation Drugs: denies SYSTEMS REVIEW GENERAL: No fever, chills, malaise. SKIN: No ecchymosis, rash, lesions of concern. HEART: No chest pain, palpitations, diaphoresis. LUNGS: No shortness of breath, new cough, sputum production, hemoptysis, painful breathing. MUSCULOSKELETAL: As described above. NEUROLOGIC: No loss of consciousness, hea daches, numbness, tingling, weakness. 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 VITAL SIGNS HR: 64 RR: 16 BP: 96 / 54 HT: 165 cm WT: 62.2 kg BMI: 22.85 PHYSICAL EXAMINATION GENERAL: Alert, relaxed female not acutely distressed. MUSCULOSKELETAL: Spine without obvious lesion or abnormality. No visible erythema or ecchymosis. Nopain along the spinous process, mild pain along the paravertebral muscles in the lumbar spine. No pain over the SI joint. Flexion is complete with limited increased in pain, extension dose increase pain, lateral bending increases pain on the contralateral paraspinal region. Negative straight leg raise, cross straight leg raise. NEUROVASCULAR: Strength with flexion and extension of knee and ankle and great toe extension is 5/5and symmetric. Gait with normal base. Sensation to light touch is equal and symmetric. Cap refill < 3 seconds. IMPRESSION/REPORT/PLAN Sprain Lumbar Initial Maximum Medical Improvement: no Permanent Partial Disability: undetermined Work Related: yes PLAN: Lumbar back pain, appears generalized to the soft tissues of the bilateral lumbar spine; she is tolerating her full work duties and continuing to see improvements since the date of injury. She is approaching a stretch of days off. Advised that we continue with conservative measures. Utilize ice/heat as deemed helpful. Gentle stretching advised. Although there are several days off of work in a row approaching, remain ambulatory and active. Utilize tylenol as needed. Caution with the valium advised, if it hasn't been required up until this point, advise avoid utilizing altogether. Return visitin 2 weeks. If still noticing discomfort, would advise PT intervention. Return sooner if decline desp ite these measures. Please see attached workability for further details. She expressed understanding and agrees with plan. This was a 40 minute visit, 25 minutes were spent on counseling and coordination of care. Thank you for letting me be involved in your care. Ordered: OV Est Pt Level 5 - [address]2514 - 40 min Electronically Signed By: JONNA HUSSEIN CNP., RN On: 08/15/2017 08:39 AM Source: [facility] POWERCHART Document Id: [id number] documented in this encounter Miscellaneous Notes Miscellaneous - Tracy Card L.P.N. - 08/15/2017 8:01 AM CDT Adult [employer] Intake/History Adult [employer] Intake/History Entered On: 08/15/2017 8:05 CDT Performed On: 08/15/2017 8:01 CDT by TRACY CARD LPN Intake Chief Complaint : Back pain DOI: 08/09/17 [facility]-RW Peripheral Pulse Rate : 64 /min Respiratory Rate : 16 /min Heart Rhythm : Regular Systolic Blood Pressure : 96 mmHg Diastolic Blood Pressure : 54 mmHg NIBP Mean : 68 mmHg BP Location : Right upper extremity Blood Pressure Cuff Size : Regular Height : 165 cm(Converted to: 5 ft 5 inch(es), 65 inch(es)) Actual Weight : 62.2 kg(Converted to: 137 lb 2 oz) Weight Source : Standing scale Dosing Weight Clinic : 62.2 kg Clinic BSA : 1.69 Body Mass Index : 22.85 kg/m2 TRACY CARD LPN - 08/15/2017 8:01 CDT General Info Information Given By : Patient Languages : Kyrgyz Is Patient Female and 13-50 no hysterectomy : Yes Status : Patient denies Are you ? : No TRACY CARD LPN - 08/15/2017 8:01 CDT Subjective Pain Symptoms : Yes TRACY CARD LPN - 08/15/2017 8:01 CDT Pain Scale Pain Scale Verbal 0-10 : Open TRACY CARD LPN - 08/15/2017 8:01 CDT Pain Pain Assessment Grid Pain 1 Location : Lower back Laterality : Bilateral Intensity : 6 TRACY CARD LPN - 08/15/2017 8:01 CDT Dependent Habits Exposure to Tobacco Smoke : Care provider denies smoking in home Smoking Status : Never smoker Tobacco 2A : No Tobacco Use/Currently Using : No Tobacco Use/Last 30 Days : No Tobacco Use/Last 12 months : No TRACY CARD LPN - 08/15/2017 8:01 CDT Caffeine Use Grid Caffeine Use : Current Type : Soft drinks Frequency : Daily Amount : 1 serving TRACY CARD LPN - 08/15/2017 8:01 CDT Recreational Drug Use Grid Drug Use : None TRACY CARD LPN - 08/15/2017 8:01 CDT Source: [place] Document Id: [id number]!49 documented in this encounter Plan of Treatment Not on filedocumented as of this encounter Visit Diagnoses Not on filedocumented in this encounter
--- OUTSIDE RECORDS SUMMARY | 2022-08-31 12:41 | XMS_ITS | Encounter Summary ---
:1995 Author Organization [facility] Address [address] [place] [address] Care Team Providers Name Role Phone Unavailable Primary Care Provider Unavailable Reason for Visit Outpatient (Routine) - Closed Specialty Diagnoses / Procedures Referred By Referred To Contact Contact Gastroenterology and Diagnoses Crohns Disease Of Large Intestine Without Complications (HCC) Angelic Murphy M.D. [facility] [address] [place] [address] Referral ID Status Reason Start Date Expiration Date Visits Requ ested Visits Authorized [id number] Closed 02/28/2018 08/27/2018 1 1 Encounter Details Date Type Department Care Team Description 08/08/2018 Office Visit Division of Angelic Murphy, Dinah English Of Gastroenterology in [place] [place], [place] [address] [facility] Without Complications [address] [place], [place] (HCC) [place] [phone] Social History Tobacco Use Types Packs/Day Years [...] Weight 63.6 kg (140 lb 3.4 oz) 08/08/2018 3:52 PM CDT Height 166.6 cm (5' 5.59) 08/08/2018 3:52 PM CDT Body Mass Index 22.91 08/08/2018 3:52 PM CDT documented in this encounter Progress Notes Angelic Murphy M.D. - 08/08/2018 4:00 PM CDT SUBJECTIVE Patient ID: Laurel Mcdonald is a 23 y.o. female who presents for evaluation of Crohn's disease HPI Ms Mcdonald is 23 yo female who was diagnosed with Crohn's colitis in February 2017. She has been on Humira since then. He was on Imuran which was stopped due to side effects. She is doing well. She denies any diarrhea, blood in stool, nausea or vomiting. She is taking her Humira every other week. She still has some occasional abdominal pain which improves with bowel movement. Her main concern is fatigue. We were from previously extensive testing including CBC, TSH, morning cortisol level and vitamins level which were all normal. 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 She is also attending school at the same time. She had a colonoscopy today which was normal except inflammatory polyps. The colon prep was unsatisfactory despite taken GoLYTELY twice Random biopsies are still pending. Her last Humira level was about a year ago was 9. Her last MR enterography was performed in May 2017 which showed only mild residual inflammation in the ascending colon and proximal transverse colon no inflammatory changes in the small intestine. Review of Systems All negative except per HPI ASSESSMENT / PLAN 23-year-old female who presented with Crohn colitis currently in remission on Humira every 2 weeks #1 Crohn colitis in remission #2 Occasional abdominal pain Crohn disease looks to be in remission based on her symptoms and the endoscopic appearance. She is currently on monotherapy with Humira alone. Her abdominal pain might be related to constipation. It improves when she has a bowel movement. Recommendations 1. Continue with Humira 40 mg every other week 2. Check Humira trough next week 3. Repeat colonoscopy in 2 years unless she has relapsing her symptoms 4. I recommended increasing fiber in her diet with a goal of 20-30 g daily I recommended using Metamucil or Citrucel as supplement. Also recommended that she takes 2-3 cups of water with fiber 5. If fiber alone is not effective then we will do MiraLax titrate as needed for good bowel movement 6. She is going to follow up with her primary care physician regarding the fatigue. I do not believethat Crohn disease is responsible for it since she is currently in remission documented in this encounter Plan of Treatment Not on filedocumented as of this encounter Results (ABNORMAL) ANDREA (Antinuclear Antibodies) (08/08/2018 1:59 PM CDT) [facility] Method Time Signature Antinuclear Ab, 4.7 (H) <=1.0 08/11/2018 [facility] S (Negative 2:24 PM CDT LABORATORIES - ) U [facility] Comment: Interpretation: Positive (3.0-5 .9) Specimen Anatomical Collection Method Collection Time Receive d Time (Source) Location / / Volume Laterality Blood (Blood, 08/08/2018 1:59 PM 08/09/20 18 7:28 Venous) CDT AM CDT Angelic Murphy M.D. LAB BLOOD ADD-ON Performing Organization Address City/State/ZIP Code Phon e Number [facility] - [address] [place] [address] [address] [facility] documented in this encounter Visit Diagnoses Diagnosis Crohns Disease Of Large Intestine Withou t Complications (HCC) documented in this encounter
--- OUTSIDE RECORDS SUMMARY | 2022-08-31 12:41 | XMS_ITS | Encounter Summary ---
:1995 Author Organization [facility] Address [address] [place] [address] Care Team Providers Name Role Phone Unavailable Primary Care Provider Unavailable Reason for Visit Appointment Request (Routine) - Closed Specialty Diagnoses / Procedures Referred By Contact Refer red To Contact Preventive Medicine Referral ID Status Reason Start Date Expiration Date Visits Requ ested Visits Authorized [id number] Closed 09/11/2018 09/11/2019 1 Encounter Details Date Type Department Care Team Description 09/11/2018 Nurse Only Section of Preventive, Transportation and Occupational Medicine in [place], [place] [address] [place] [address] Social History Tobacco Use Types Packs/Day [...] slept in a skilled nursing (including now)? Sex Assigned at Date Recorded Female 07/18/2021 2:49 PM CDT documented as of this encounter Miscellaneous Notes Addendum Note - Iliana Rubalcava R.N., C.M.S.R.N. - 09/11/2018 1:30 PM CDT Addended by: ILIANA RUBALCAVA on: 10/16/2018 08:41 AM Modules accepted: Level of Service [facility] documented in this encounter Plan of Treatment Not on filedocumented as of this encounter Procedures Procedure Name Priority Date/Time Associated Diagnosis Comme nts GRP A STREP (S. Routine 09/11/2018 1:59 PM Exposure Surveillan ce Results for this PYOGENES) CULTURE CDT Exam procedure are in the results section. GRP A STREP (S. Routine 09/11/2018 1:59 PM Exposure Surveillan ce Results for this PYOGENES) CULTURE CDT Exam procedure are in the results section. GRP A STREP (S. Routine 09/11/2018 1:59 PM Exposure Surveillan ce Results for this PYOGENES) CULTURE CDT Exam procedure are in the results section. documented in this encounter Results Grp A Strep (S. pyogenes) Culture (09/11/2018 1:59 PM CDT) Component Value Ref Test Analysis Performed At [facility] Method Time Signature Grp A Strep No growth of 09/13/2018 [facility] (S. Streptococcus 7:57 AM CDT LABORATORIES - pyogenes) pyogenes [facility] Specimen Anatomical Collection Method Collection Time Receive d Time (Source) Location / / Volume Laterality Swab (Vagina) 09/11/2018 1:59 PM 09/11/20 18 4:30 CDT PM CDT Comment: Specimen Source Site: Swab Mike Carrillo M.D., M.P.H. LAB MICROBIOLOGY - GENERA L ORDERABLES Performing Organization Address City/[facility]/ZIP Code Phon e Number [facility] LABORATORIES - [address] Grp A Strep (S. pyogenes) Culture (09/11/2018 1:59 PM CDT) Component Value Ref Test Analysis Performed At [facility] gist Range Method Time Signature Grp A Strep No growth of 09/13/2018 [facility] (S. Streptococcus 7:57 AM CDT LABORATORIES - pyogenes) pyogenes [facility] Specimen Anatomical Collection Method Collection Time Receive d Time (Source) Location / / Volume Laterality Swab (Rectum) 09/11/2018 1:59 PM 09/11/20 18 4:28 CDT PM CDT Comment: Specimen Source Site: Swab Mike Carrillo M.D., M.P.H. LAB MICROBIOLOGY - GENERA L ORDERABLES Performing Organization Address City/State/ZIP Code Phon e Number [facility] LABORATORIES - [address] Grp A Strep (S. pyogenes) Culture (09/11/2018 1:59 PM CDT) Component Value Ref Test Analysis Performed At [facility] gist Range Method Time Signature Grp A Strep No growth of 09/13/2018 [facility] (S. Streptococcus 7:56 AM CDT LABORATORIES - pyogenes) pyogenes [facility] Specimen Anatomical Collection Method Collection Time Receive d Time (Source) Location / / Volume Laterality Swab (Throat) 09/11/2018 1:59 PM 09/11/20 18 4:27 CDT PM CDT Comment: Specimen Source Site: Swab Mike Carrillo M.D., M.P.H. LAB MICROBIOLOGY - GENERA L ORDERABLES Performing Organization Address City/State/ZIP Code Phon e Number [facility] LABORATORIES - [address] documented in this encounter Visit Diagnoses Diagnosis Exposure Surveillance Exam - Primary documented in this encounter
--- OUTSIDE RECORDS SUMMARY | 2022-08-31 12:41 | XMS_ITS | Encounter Summary ---
:1995 Author Organization [facility] Address [address] [place] [address] Care Team Providers Name Role Phone Unavailable Primary Care Provider Unavailable Encounter Details Date Type Department Care Team Description 08/29/2018 Lab Department of Laboratory Angelic Murphy M.D. Crohn's Disease (HCC) Medicine and Pathology, [address] [facility], [place] [address] [place], [place] [address] [place] [address] [place] [address] Social History Tobacco Use [...] Procedure Name Priority Date/Time Associated Comments Diagnosis ADALIMUMAB AB, S Routine 08/29/2018 2:41 PM Resul ts for this CDT procedure are i n the results section. ADALIMUMAB QN WITH Routine 08/29/2018 2:41 PM Crohn's Disease Results for this REFLEX TO AB, S CDT (HCC) procedure ar e in the results section. documented in this encounter Results (ABNORMAL) Adalimumab Ab (08/29/2018 2:41 PM CDT) [facility] Method Time Signature Adalimumab Ab, >500.0 <14.0 09/06/[address] [facility] S (H) AU/mL 2:21 PM CDT LABORATORIES - [facility] Comment: Presence of irveiwdm-mb-ntastsfmcj detec alicia, which correlates with low concentration of adalimumab. An akmbjail-bo-fyawwegljv may be associated with increased clearan ce and lower circulating concentration of adalimumab. ----ADDITIONAL INFORMATION---- This test was developed and its performa nce characteristics determined by [facility] in a manner co nsistent with CLIA requirements. This test has not bee n cleared or approved by the U.S. Food and Drug Admin istration. Specimen Anatomical Collection Method Collection Time Receive d Time (Source) Location / / Volume Laterality Blood 08/29/2018 2:41 PM 8 1:23 CDT PM CDT Angelic Murphy M.D. LAB BLOOD NON ADD-ON Performing Organization Address City/[facility]/ZIP Code Phon e Number [facility] LABORATORIES - [address] (ABNORMAL) Adalimumab QN with Reflex to Ab (08/29/2018 2:41 PM CDT) [facility] gist Method Time Signature Adalimumab QN <0.8 (L) Limit of 09/01/[address] [facility] with Reflex Quantitation = 1:23 PM CDT LABORATORIE S - to Ab, S 0.8 mcg/mL [facility] mcg/mL [place] Comment: For concentrations of adalimumab less th an or equal to 5.0 mcg/mL, reflex testing for antibodie h-jq-frhtziufxx will be performed. ----ADDITIONAL INFORMATION---- This test was developed and its performa nce characteristics determined by [facility] in a manner co nsistent with CLIA requirements. This test has not bee n cleared or approved by the U.S. Food and Drug Admin istration. Specimen Anatomical Collection Method Collection Time Receive d Time (Source) Location / / Volume Laterality Blood (Blood, 08/29/2018 2:41 PM 08/29/20 18 4:39 Venous) CDT PM CDT Angelic Murphy M.D. LAB BLOOD ADD-ON Performing Organization Address City/[facility]/ZIP Code Phon e Number [facility] LABORATORIES - [address] documented in this encounter Visit Diagnoses Diagnosis Crohn's Disease (HCC) documented in this encounter
--- OUTSIDE RECORDS SUMMARY | 2022-08-31 12:41 | XMS_ITS | Encounter Summary ---
:1995 Author Organization [facility] Address [address] [place] [address] Care Team Providers Name Role Phone Unavailable Primary Care Provider Unavailable Reason for Visit Reason Comments Med Refill Encounter Details Date Type Department Care Team Description 04/24/2018 Refill Division of Gastroenterology in Angelic Murphy M.D. Med Refill [place], [place] [address] [place] [address] [place] [address] [phone] Social History Tobacco Use Types Packs/Day Years Used Date Smoking Tobacco: Never Smokeless Tobacco: Never Alcohol Habits Answer Date Recorded [...] or relatives? How often do you attend mormon or 1 to 4 times per year 11/11 sikhism services? Do you belong to any clubs or Yes 11/23/2021 organizations such as mormon groups, unions, fraternal or athletic groups, or [...] or slept in a custodial (including now)? Sex Assigned at Date Recorded Female 07/18/2021 2:49 PM CDT documented as of this encounter Plan of Treatment Not on filedocumented as of this encounter Visit Diagnoses Not on filedocumented in this encounter
--- OUTSIDE RECORDS SUMMARY | 2022-08-31 12:41 | XMS_ITS | Encounter Summary ---
:1995 Author Organization [facility] Address [address] [place] [address] Care Team Providers Name Role Phone Unavailable Primary Care Provider Unavailable Encounter Details Date Type Department Care Team Description 09/08/2018 Orders Only Division of Angelic Murphy Nausea (Primar y Dx) Gastroenterology in .[place], [place] [address] [place] [address] [place] [address] [phone] Social History Tobacco Use Types Packs/Day Years [...]
--- OUTSIDE RECORDS SUMMARY | 2022-08-31 12:41 | XMS_ITS | Encounter Summary ---
:1995 Author Organization [facility] Address [address] [place] [address] Care Team Providers Name Role Phone Unavailable Primary Care Provider Unavailable Encounter Details Date Type Department Care Team Description 08/08/2018 Hospital Encounter Department of Angelic Murphy, Crohn's Disease ([facility]); Laboratory Medicine M.DJulia Crohns Disease Of Large Intestine Withou t Complications ([facility]) and Pathology, [address] [facility], in [address] [phone] [place] [address] (Work) [place], [place] [phone] [address] (Fax) [phone] Social History Tobacco Use Types Packs/Day Years [...] or slept in a chcf (including now)? Sex Assigned at Date Recorded [...] mg/0.8 0 08/15/201709/11 mL pen injector kit mometasone-formoterol Inhale 2 puffs. 0 7 09/28/2019 (for_DULERA 200) 200-5 mcg/actuation inhaler norethindrone Take 0.35 mg by mouth. 0 08/02/2017 01/22/2020 ([facility]) 0.35 mg tablet nortriptyline TAKE 1 CAPSULE DAILY AT 60 capsule 3 8 08/22/2018 ([facility]) 25 mg BEDTIME capsule ondansetron (ZOFRAN) Take 4 mg by mouth 0 09/08/2018 4 mg tablet daily as needed for nausea or vomiting. documented as of this encounter Plan of Treatment Not on filedocumented as of this encounter Procedures Procedure Name Priority Date/Time Associated Diagnosis Comme nts THYROID FUNCTION Routine 08/08/2018 2:03 Crohn's Disease (HCC) Results for this [place], S PM CDT procedure are i n the results section. PROTHROMBIN TIME Routine 08/08/2018 2:03 Crohn's Disease (HCC) Results for this (PT), P PM CDT procedure are i n the results section. CBC WITHOUT Routine 08/08/2018 2:03 Crohn's Disease (HCC) Res ults for this DIFFERENTIAL, B PM CDT procedure ar e in the results section. FOLATE, S Routine 08/08/2018 2:03 Crohn's Disease (HCC) Res ults for this PM CDT procedure are i n the results section. COMPREHENSIVE Routine 08/08/2018 2:03 Crohn's Disease (HCC) Re sults for this METABOLIC PANEL, S/P PM CDT procedu re are in the results section. ANTINUCLEAR ABS Routine 08/08/2018 1:59 Crohns Disease Of Resu lts for this (ANDREA), S PM CDT Large Intestine procedure ar e in Without Complications the re sults (HCC) section. documented in this encounter Results Thyroid Function [place] (08/08/2018 2:03 PM CDT) athologist Signature TSH, Sensitive 1.2 0.3 - 4.2 08/08/2018 [facility] mIU/L 3:09 PM CDT LABORATORIES - [facility] Specimen Anatomical Collection Method Collection Time Receive d Time (Source) Location / / Volume Laterality Blood (Blood, 08/08/2018 2:03 PM 08/08/20 18 2:24 Venous) CDT PM CDT Angelic Murphy M.D. LAB BLOOD ADD-ON Performing Organization Address City/State/ZIP Code Phon e Number [facility] LABORATORIES - [address] [place], [place] [address] [facility] Folate (08/08/2018 2:03 PM CDT) athologist Signature Folate, S 9.5 >=4.0 mcg/L 08/08/2018 [facility] 3:33 PM CDT LABORATORIES - [facility] Specimen Anatomical Collection Method Collection Time Receive d Time (Source) Location / / Volume Laterality Blood (Blood, 08/08/2018 2:03 PM 08/08/20 18 2:24 Venous) CDT PM CDT Angelic Murphy M.D. LAB BLOOD ADD-ON Performing Organization Address City/[facility] Phon e Number [facility] LABORATORIES - [address] [place] [address] [facility] (ABNORMAL) PT (Prothrombin Time) with INR (08/08/2018 2:03 PM CDT) Patholo gist Method Time Signature Prothrombin 13.1 (H) 9.4 - 08/08/2018 [facility] Time, P 12.5 sec 2:36 PM CDT LABORATORIES - [facility] INR 1.2 0.9 - 1.1 08/08/2018 [facility] 2:36 PM CDT LABORATORIES - [facility] Comment: ----ADDITIONAL INFORMATION---- Standard intensity warfarin therapeutic range: 2.0 to 3.0 ?? High intensity warfarin therapeutic rang e: 2.5 to 3.5 Specimen Anatomical Collection Method Collection Time Receive d Time (Source) Location / / Volume Laterality Blood (Blood, 08/08/2018 2:03 PM 08/08/20 18 2:24 Venous) CDT PM CDT Angelic Murphy M.D. LAB BLOOD ADD-ON Performing Organization Address [facility] Code Phon e Number [facility] LABORATORIES - [address] [place] [address] [facility] (ABNORMAL) CMP (Comprehensive Metabolic Panel) (08/08/2018 2:03 PM CDT) Analysis Performed At Path logist Time Signature Potassium, S 3.8 3.6 - 5.2 08/08/2018 [facility] mmol/L 3:09 PM CDT LABORATORIES - [facility] Sodium, S 145 135 - 145 08/08/2018 [facility] mmol/L 3:09 PM CDT LABORATORIES - [facility] Chloride, S 104 98 - 107 08/08/2018 [facility] mmol/L 3:09 PM CDT LABORATORIES - [facility] Bicarbonate, S 29 22 - 29 08/08/2018 [facility] mmol/L 3:09 PM CDT LABORATORIES - [facility] Anion Gap 12 7 - 15 08/08/2018 [facility] 3:09 PM CDT LABORATORIES - [facility] BUN (Blood Urea 6 6 - 21 08/08/2018 [facility] Nitrogen), S mg/dL 3:09 PM CDT LABORATORIES - [facility] Creatinine 0.86 0.59 - 08/08/2018 [facility] 1.04 mg/dL 3:09 [facility] eGFR-Non >90 >=60 08/08/2018 [facility] Black/ mL/min/BSA 3:09 [facility] Comment: ----ADDITIONAL INFORMATION---- Estimated GFR calculated using the 2009 CKD_EPI creatinine equation. eGFR-Black/ >90 >=60 mL/min/BSA 08/08/2018 3:09 [facility] CDT [facility] Comment: ----ADDITIONAL INFORMATION---- Estimated GFR calculated using the 2009 CKD_EPI creatinine equation. Calcium, Total, S 9.2 8.6 - 10.0 08/08/2018 3:09 PM [facility] mg/dL CDT [facility] Glucose, S 132 70 - 140 08/08/2018 3:09 PM [facility] mg/dL T [facility] Protein, Total, S 7.0 6.3 - 7.9 08/08/2018 3:09 PM [facility] g/dL T [facility] Albumin, S 4.7 3.5 - 5.0 08/08/2018 3:09 PM [facility] g/dL T [facility] Aspartate 15 8 - 43 U/L 08/08/2018 3:09 PM [facility] Aminotransferase (AST), CDT LABORA TORIES - S [facility] Alkaline Phosphatase, S 52 37 - 98 U/L 08/08/2018 3:0 9 PM [facility] Alanine Aminotransferase <7 (L) 7 - 45 U/L 08/08/2018 3:2 1 PM [facility] (ALT), S [facility] Bilirubin, Total, S 0.6 <=1.2 mg/dL 08/08/2018 3:09 PM [facility] Specimen Anatomical Collection Method Collection Time Receive d Time (Source) Location / / Volume Laterality Blood (Blood, 08/08/2018 2:03 PM 08/08/20 18 2:24 Venous) CDT PM CDT Angelic Murphy M.D. LAB BLOOD ADD-ON Performing Organization Address City/State/ZIP Code Phon e Number [facility] LABORATORIES - [address] [place] [address] [facility] (ABNORMAL) CBC without Differential (08/08/2018 2:03 PM CDT) [facility] Method Time Signature Hemoglobin 13.5 11.6 - 08/08/2018 [facility] 15.0 g/dL 2:35 PM CDT LABORATORIES - [facility] Hematocrit 41.0 35.5 - 08/08/2018 [facility] 44.9 % 2:35 PM CDT LABORATORIES - [facility] Erythrocytes 4.55 3.92 - 08/08/2018 [facility] 5.13 2:35 PM CDT LABORATORIES - x10(12)/L [facility] MCV 90.1 78.2 - 08/08/2018 [facility] 97.9 fL 2:35 PM CDT LABORATORIES - [facility] RBC Distrib 12.6 12.2 - 08/08/2018 [facility] Width 16.1 % 2:35 PM CDT LABORATORIES - [facility] Platelet Count 327 157 - 371 08/08/2018 [facility] x10(9)/L 2:35 PM CDT LABORATORIES - [facility] Leukocytes 10.5 (H) 3.4 - 9.6 08/08/2018 [facility] x10(9)/L 2:35 PM CDT LABORATORIES - [facility] Specimen Anatomical Collection Method Collection Time Receive d Time (Source) Location / / Volume Laterality Blood (Blood, 08/08/2018 2:03 PM 08/08/20 18 2:24 Venous) CDT PM CDT Angelic Murphy M.D. LAB BLOOD ADD-ON Performing Organization Address City/[facility] Phon e Number [facility] LABORATORIES - [address] [place] [address] [facility] (ABNORMAL) ANDREA (Antinuclear Antibodies) (08/08/2018 1:59 PM CDT) [facility] Method Time Signature Antinuclear Ab, 4.7 (H) <=1.0 08/11/2018 [facility] S (Negative 2:24 PM CDT LABORATORIES - ) U [facility] Comment: Interpretation: Positive (3.0-5 .9) Specimen Anatomical Collection Method Collection Time Receive d Time (Source) Location / / Volume Laterality Blood (Blood, 08/08/2018 1:59 PM 08/09/20 18 7:28 Venous) CDT AM CDT Angelic Murphy M.D. LAB BLOOD ADD-ON Performing Organization Address City/State/ZIP Code Phon e Number [facility] LABORATORIES - [address] [place] [address] [facility] documented in this encounter Visit Diagnoses Diagnosis Crohn's Disease (HCC) Crohns Disease Of Large Intestine Withou t Complications (HCC) documented in this encounter
--- OUTSIDE RECORDS SUMMARY | 2022-08-31 12:41 | XMS_ITS | Encounter Summary ---
:1995 Author Organization [facility] Address [address] [place] [address] Care Team Providers Name Role Phone Unavailable Primary Care Provider Unavailable Reason for Visit Reason Onset Date Comments Patient called 08/22/2018 Encounter Details Date Type Department Care Team Description 08/22/2018 Clinical Division of Angelic Murphy, Patient called Communication Gastroenterology in [address] [place] [address] [phone] Social History Tobacco Use Types Packs/Day Years [...] Telephone Encounter - Angelic Murphy M.D. - 08/22/2018 5:19 PM CDT Phone note I called Ms. Mcdonald. She is doing better with fiber supplement. Her constipation has resolved. Biopsy from the right at the side of the colon showed mildly active chronic colitis. Biopsies from the left side of the colon showed inactive colitis. Recommendations She is going to check her Humira trough next week all determine if any changes is required to her dose. documented in this encounter Plan of Treatment Not on filedocumented as of this encounter Visit Diagnoses Not on filedocumented in this encounter
--- OUTSIDE RECORDS SUMMARY | 2022-08-31 12:41 | XMS_ITS | Encounter Summary ---
:1995 Author Organization [facility] Address [address] [place] [address] Care Team Providers Name Role Phone Unavailable Primary Care Provider Unavailable Reason for Referral Outpatient (Routine) - Closed Specialty Diagnoses / Procedures Referred By Contact Refer red To Contact Diagnoses Crohns Disease Of Large Intestine Without Complications (HCC) Angelic Murphy M.D. [facility] Procedures Colonoscopy [address] [place] [address] Referral ID Status Reason Start Date Expiration Date Visits Requ ested Visits Authorized [id number] Closed 03/05/2018 09/01/2018 1 1 Reason for Visit Outpatient (Routine) - Closed Specialty Diagnoses / Procedures Referred By Contact Refer red To Contact Diagnoses Crohns Disease Of Large Intestine Without Complications (HCC) Angelic Murphy M.D. [facility] Procedures Colonoscopy [address] [place] [address] Referral ID Status Reason Start Date Expiration Date Visits Requ ested Visits Authorized [id number] Closed 03/05/2018 09/01/2018 1 1 Encounter Details Date Type Department Care Team Description 08/08/2018 Hospital Division of Angelic Murphy Crohnelise Disease Of Encounter Gastroenterology in [place] Large Intestine [place], [place] [address] Complications (HCC) [place] [address] [place], [place] [phone] Social History Tobacco Use Types Packs/Day Years [...] Sign Reading Time Taken Comments Blood Pressure 108/68 08/08/2018 7:24 AM CDT Pulse 113 08/08/2018 7:24 AM CDT Temperature 37 ??C (98.6 ??F) 08/08/2018 7:24 AM CDT Respiratory Rate 14 08/08/2018 7:24 AM CDT Oxygen Saturation 87% 08/08/2018 7:24 AM CDT Inhaled Oxygen Concentration - - Weight - - Height - - Body Mass Index - - documented in this encounter Medications at Time [...] Name Priority Date/Time Associated Diagnosis Comme nts SURGICAL PATHOLOGY Routine 08/08/2018 12:51 Resul ts for this PM CDT procedure are i n the results section. COLONOSCOPY Routine 08/08/2018 12:25 Crohns Disease Of Result s for this PM CDT Large Intestine procedure ar e in Without Complications the re sults (HCC) section. COLONOSCOPY Routine 08/08/2018 12:25 Crohns Disease Of PM CDT Large Intestine Without Complications (HCC) documented in this encounter Results Surgical Pathology (08/08/2018 12:51 PM CDT) Component Value Ref Test Analysis Performed At [facility] Range Method Time Signature Gross Description A: ?? Received in formalin labeled with the patie nt's name, 08/11/2018 [facility] medical record number, and colon-right colon are seven 2:33 PM CDT LABORATORIES - pale haynes-pink irregular soft tissues, ranging from 0.2-0.8 [facility] cm in greatest dimension. Specimens are submitted en toto CAMPUS in cassette A1. Grossed by VASQUEZ. B: ?? Received in formalin labeled with the patient's name, medical record number, and colon-left colon are eight pale haynes-pink irregular soft tissues, ranging from 0.2-0.7 cm in greatest dimension. Specimens are submitted en toto in cassette B1. Grossed by VASQUEZ. Report Dru Moraes M.D. [phone] [facility] electronically I verify that I have examined all relevant slides/ma terials 2:33 PM CDT LABORATORIES - signed by for the specimen(s) and rendered or confirmed the diagnosi s. [facility] 08/11/2018 [facility] 2:33 PM CDT LABORATORIES - [facility] Interpretation FINAL DIAGNOSIS 08/11/2018 [facility] A. Colon, Right colon, endoscopic biopsy: ??Mild active 2:33 PM CDT LABORATORIES - chronic colitis. ??No dysplasia. [facility] B. Colon, Left colon, endoscopic biopsy: ??Inactive chronic CAMPUS colitis. ??No dysplasia. Specimen (Source) Anatomical Collection Method Collection Time Re ceived Time Location / / Volume Laterality Biopsy (Colon) 08/08/2018 12:51 PM CDT Comment: Assess disease activity Biopsy (Colon) 08/08/2018 12:52 PM CDT Comment: Assess disease activity Narrative This result has an attachment that is no t available. Niraj Roberts M.D., Ph.D. LAB SURG PATH ORDERABLES Performing Organization Address City/State/ZIP Code Phon e Number [facility] LABORATORIES - [address] [place], [place] [address] [facility] Colonoscopy (08/08/2018 12:25 PM CDT) Specimen (Source) Anatomical Collection Method Collection Time Re ceived Time Location / / Volume Laterality 08/08/2018 12:25 PM CDT Impressions [facility] - 08/08/2018 1:02 PM CDT Post-op Diagnoses: ? - Preparation of the colon was un satisfactory. ? - Pseudopolyps in the transverse colon, at the hepatic flexure, in the ? ascending colon and in the cecum. [Resected]. ? - The examination was otherwise n ormal on direct and retroflexion views. ? - Biopsies were taken with a cold forceps for histology in the entire ? colon. Narrative [facility] - 08/08/2018 1:02 PM CDT Gerak[facility]ie 9 GI GI Patient Name: Laurel Mcdonald Date of : 1995 Age: 23 Gender: Female Procedure Date: 08/08/2018 Procedure: ? Colonosc opy Providers: ? Niraj munguia MD Referring Provider: ?Angelic Murphy MD Pre-op Diagnoses: ?Follow-up o f Crohn's disease Recommendation: ? - Discharge patient to home. Findings: ? The perianal and digital rectal e xaminations were normal. ? Diffuse pseudopolyps were found i n the transverse colon, at the hepatic ? flexure, in the ascending colon a nd in the cecum. ? The exam was otherwise without ab normality on direct and retroflexion ? views. ? Biopsies were taken with a cold f orceps in the entire colon for ? histology. Estimated blood loss w as minimal. Procedural Details: ? The patient was seen, [...] oxygen saturations ? were monitored continuously. The Colonoscope was introduced under direct ? vision through the anus and advan zoraida to the terminal ileum, with ? identification of the appendiceal orifice and IC valve. The colonoscopy ? was performed without difficulty. The patient tolerated the procedure ? well. The quality of the bowel pr eparation was unsatisfactory. Complications: ? No immedia te complications. Sedation: ? Anesthesia was administered by an anesthesia professional. The following ? parameters were monitored: oxygen saturation, heart rate, blood ? pressure, respiratory rate, EKG, adequacy of pulmonary ventilation, and ? response to care. Attending Participation: I personally pe rformed the entire procedure. Niraj Roberts MD 08/08/2018 1:02:19 PM This report has been signed electronical ly. Number of Addenda: 0 Angelic Murphy M.D. GI PROCEDURE ORDERABLES Performing Organization Address City/State/ZIP Code Phon e Number [facility] NA documented in this encounter Visit Diagnoses Diagnosis Crohns Disease Of Large Intestine Withou t Complications (HCC) documented in this encounter
--- OUTSIDE RECORDS SUMMARY | 2022-08-31 12:41 | XMS_ITS | Encounter Summary ---
:1995 Author Organization [facility] Address [address] [place] [address] Care Team Providers Name Role Phone Unavailable Primary Care Provider Unavailable Encounter Details Date Type Department Care Team Description 08/04/2018 Orders Only Division of Angelic Murphy, Crohn's Diseas e Gastroenterology in M.D. ([facility]) (Primary Dx) [place], [place] [address] [place] [address] [address] [place] [address] [place] [address] [phone] Social History Tobacco Use Types Packs/Day Years [...] slept in a care home (including now)? Sex Assigned at Date Recorded Female 07/18/2021 2:49 PM CDT documented as of this encounter Plan of Treatment Not on filedocumented as of this encounter Visit Diagnoses Diagnosis Crohn's Disease (HCC) - Primary documented in this encounter
--- OUTSIDE RECORDS SUMMARY | 2022-08-31 12:41 | XMS_ITS | Encounter Summary ---
:1995 Author Organization [facility] Address [address] [place] [address] Care Team Providers Name Role Phone Unavailable Primary Care Provider Unavailable Encounter Details Date Type Department Care Team Description 06/23/2018 Clinical Communication Division of Angelic Murphy, Gastroenterology in [address] [place] [address] [phone] Social History Tobacco Use Types Packs/Day Years [...] Telephone Encounter - Angelic Murphy M.D. - 06/23/2018 6:00 PM CDT Phone Note I called Ms Mcdonald. I requested blood tests and follow-up visit with me. I left a voice message documented in this encounter Plan of Treatment Not on filedocumented as of this encounter Results Thyroid Function Leslie (08/08/2018 2:03 PM CDT) athologist Signature TSH, Sensitive 1.2 0.3 - 4.2 08/08/2018 [facility] mIU/L 3:09 PM CDT LABORATORIES - [facility] Specimen Anatomical Collection Method Collection Time Receive d Time (Source) Location / / Volume Laterality Blood (Blood, 08/08/2018 2:03 PM 08/08/20 18 2:24 Venous) CDT PM CDT Angelic Murphy M.D. LAB BLOOD ADD-ON Performing Organization Address City/State/ZIP Code Phon e Number [facility] LABORATORIES - [address] [place], [place] [address] [facility] Folate (08/08/2018 2:03 PM CDT) athologist Signature Folate, S 9.5 >=4.0 mcg/L 08/08/2018 [facility] 3:33 PM CDT LABORATORIES - [facility] Specimen Anatomical Collection Method Collection Time Receive d Time (Source) Location / / Volume Laterality Blood (Blood, 08/08/2018 2:03 PM 08/08/20 18 2:24 Venous) CDT PM CDT Angelic Murphy M.D. LAB BLOOD ADD-ON Performing Organization Address [facility] Phon e Number [facility] LABORATORIES - [address] [place] [phone] [facility] (ABNORMAL) PT (Prothrombin Time) with INR (08/08/2018 2:03 PM CDT) Patholo gist Method Time Signature Prothrombin 13.1 (H) 9.4 - 08/08/2018 [facility] Time, P 12.5 sec 2:36 PM CDT LABORATORIES - [facility] INR 1.2 0.9 - 1.1 08/08/2018 [facility] 2:36 PM CDT LABORATORIES - [facility] Comment: ----ADDITIONAL INFORMATION---- Standard intensity warfarin therapeutic range: 2.0 to 3.0 ?? High intensity warfarin therapeutic rang e: 2.5 to 3.5 Specimen Anatomical Collection Method Collection Time Receive d Time (Source) Location / / Volume Laterality Blood (Blood, 08/08/2018 2:03 PM 08/08/20 18 2:24 Venous) CDT PM CDT Angelic Murphy M.D. LAB BLOOD ADD-ON Performing Organization Address [facility] Code Phon e Number [facility] LABORATORIES - [address] [address] [facility] (ABNORMAL) CMP (Comprehensive Metabolic Panel) (08/08/2018 2:03 PM CDT) Analysis Performed At Patho logist Time Signature Potassium, S 3.8 3.6 - 5.2 08/08/2018 [facility] mmol/L 3:09 PM CDT LABORATORIES - [facility] Sodium, S 145 135 - 145 08/08/2018 [facility] mmol/L 3:09 PM CDT LABORATORIES - [facility] Chloride, S 104 98 - 107 08/08/2018 [facility] mmol/L 3:09 PM CDT LABORATORIES - [facility] Bicarbonate, S 29 22 - 29 08/08/2018 [facility] mmol/L 3:09 PM CDT LABORATORIES - [facility] Anion Gap 12 7 - 15 08/08/2018 [facility] 3:09 PM CDT LABORATORIES - [facility] BUN (Blood Urea 6 6 - 21 08/08/2018 [facility] Nitrogen), S mg/dL 3:09 PM T [facility] Creatinine 0.86 0.59 - 08/08/2018 [facility] 1.04 mg/dL 3:09 PM T [facility] eGFR-Non >90 >=60 08/08/2018 [facility] Black/ mL/min/BSA 3:09 PM T [facility] Comment: ----ADDITIONAL INFORMATION---- Estimated GFR calculated using the 2009 CKD_EPI creatinine equation. eGFR-Black/ >90 >=60 mL/min/BSA 08/08/2018 3:09 [facility] CDT [facility] Comment: ----ADDITIONAL INFORMATION---- Estimated GFR calculated using the 2009 CKD_EPI creatinine equation. Calcium, Total, S 9.2 8.6 - 10.0 08/08/2018 3:09 PM [facility] mg/dL CDT [facility] Glucose, S 132 70 - 140 08/08/2018 3:09 PM [facility] mg/dL T [facility] Protein, Total, S 7.0 6.3 - 7.9 08/08/2018 3:09 PM [facility] g/dL CDT [facility] Albumin, S 4.7 3.5 - 5.0 08/08/2018 3:09 PM [facility] g/dL T [facility] Aspartate 15 8 - 43 U/L 08/08/2018 3:09 PM [facility] Aminotransferase (AST), CDT LABORA TORIES - S [facility] Alkaline Phosphatase, S 52 37 - 98 U/L 08/08/2018 3:0 9 PM [facility] Alanine Aminotransferase <7 (L) 7 - 45 U/L 08/08/2018 3:2 1 PM [facility] (ALT), S [facility] Bilirubin, Total, S 0.6 <=1.2 mg/dL 08/08/2018 3:09 PM [facility] Specimen Anatomical Collection Method Collection Time Receive d Time (Source) Location / / Volume Laterality Blood (Blood, 08/08/2018 2:03 PM 08/08/20 18 2:24 Venous) CDT CDT Angelic Murphy M.D. LAB BLOOD ADD-ON Performing Organization Address City/[facility] Code Phon e Number [facility] LABORATORIES - [address] [place], [place] [address] [facility] (ABNORMAL) CBC without Differential (08/08/2018 2:03 PM CDT) [facility] Method Time Signature Hemoglobin 13.5 11.6 - 08/08/2018 [facility] 15.0 g/dL 2:35 PM CDT LABORATORIES - [facility] Hematocrit 41.0 35.5 - 08/08/2018 [facility] 44.9 % 2:35 PM CDT LABORATORIES - [facility] Erythrocytes 4.55 3.92 - 08/08/2018 [facility] 5.13 2:35 PM CDT LABORATORIES - x10(12)/L [facility] MCV 90.1 78.2 - 08/08/2018 [facility] 97.9 fL 2:35 PM CDT LABORATORIES - [facility] RBC Distrib 12.6 12.2 - 08/08/2018 [facility] Width 16.1 % 2:35 PM CDT LABORATORIES - [facility] Platelet Count 327 157 - 371 08/08/2018 [facility] x10(9)/L 2:35 PM CDT LABORATORIES - [facility] Leukocytes 10.5 (H) 3.4 - 9.6 08/08/2018 [facility] x10(9)/L 2:35 PM CDT LABORATORIES - [facility] Specimen Anatomical Collection Method Collection Time Receive d Time (Source) Location / / Volume Laterality Blood (Blood, 08/08/2018 2:03 PM 08/08/20 18 2:24 Venous) CDT PM CDT Angelic Murphy M.D. LAB BLOOD ADD-ON Performing Organization Address City/[facility] Code Phon e Number [facility] LABORATORIES - [address] [place], [place] [address] [facility] documented in this encounter Visit Diagnoses Diagnosis Crohn's Disease (HCC) - Primary documented in this encounter
--- OUTSIDE RECORDS SUMMARY | 2022-08-31 12:41 | XMS_ITS | Encounter Summary ---
:[address] [facility] Address [address] [place] [address] Care Team Providers Name Role Phone Unavailable Primary Care Provider Unavailable Encounter Details Date Type Department Care Team Description 09/27/2017 Hospital Encounter HX NO MAPPING Social History Tobacco Use Types Packs/Day Years [...] Date albuterol (for_PROVENTIL Inhale 1-2 puffs. 0 /12/201607/29/2020 HFA,VENTOLIN HFA) 90 mcg/actuation inhaler CALCIUM CARB/VIT 1 tablet 2 (two) 0 04/02/2017 D3/MINERALS times a day. (CALCIUM-VITAMIN D ORAL) cholecalciferol Take 1 tablet by 0 04/02/201708/2018 (for_VITAMIN D3) 1,000 mouth daily. Unit tablet diazePAM (for_VALIUM) 5 mg 0 7 04/20/2018 tablet ETHINYL Take 1 tablet by 0 [...] 017 01/22/2020 0.35 mg tablet mouth. nortriptyline 0 09/12/2017 04/24/2018 (for_PAMELOR) 25 mg capsule oxyCODONE (for_ROXICODONE) Take 5 mg by mouth. [...]
--- OUTSIDE RECORDS SUMMARY | 2022-08-31 12:41 | XMS_ITS | Encounter Summary ---
:1995 Author Organization [facility] Address [address] [place] [address] Care Team Providers Name Role Phone Unavailable Primary Care Provider Unavailable Encounter Details Date Type Department Care Team Description 08/08/2018 Ancillary Procedure Department of Gastroenterology Social History [...] Date/Time Associated Comments Diagnosis GASTROENTEROLOGY IMAGE Routine 08/08/2018 12:25 R esults for this EXAM PM CDT procedure are i n the results section. documented in this encounter Results GASTROENTEROLOGY IMAGE EXAM (08/08/2018 12:25 PM CDT) Specimen (Source) Anatomical Collection Method Collection Time Re ceived Time Location / / Volume Laterality 08/08/2018 12:25 PM CDT Narrative [facility] - 08/08/2018 1:06 PM CDT This order has been created and [...]
--- OUTSIDE RECORDS SUMMARY | 2022-08-31 12:41 | XMS_ITS | Encounter Summary ---
:1995 Author Organization [facility] Address [address] [place] [address] Care Team Providers Name Role Phone Unavailable Primary Care Provider Unavailable Encounter Details Date Type Department Care Team Description 06/16/2018 Clinical Communication Division of Angelic Murphy, Gastroenterology in [address] [place] [address] [phone] Social History Tobacco Use Types Packs/Day Years [...] 1 to 4 times per year 11/11 congregation services? Do you belong to any clubs [...]
--- OUTSIDE RECORDS SUMMARY | 2022-08-31 12:41 | XMS_ITS | Encounter Summary ---
:[address] [facility] Address [address] [place] [address] Care Team Providers Name Role Phone Unavailable Primary Care Provider Unavailable Reason for Referral Outpatient (Routine) - Closed Specialty Diagnoses / Procedures Referred By Contact Refer red To Contact Preventive Medicine Diagnoses oJnna Jorgensen [facility] [address] [place] [address] Referral ID Status Reason Start Date Expiration Date Visits Requ ested Visits Authorized [id number] Closed 10/10/2017 04/08/2018 1 1 DE WIRER Reason for Visit Reason Comments Work Related Injury Back injury - Injury date07/13 07/28. 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 Pt states pain level today is at a 2 w ith (0-10) 10 being the worse for pain. Outpatient (Routine) - Closed Specialty Diagnoses / Procedures Referred By Contact Refer red To Contact Preventive Medicine Diagnoses Sprain Lumbar Subsequent Shazia Garcia M.D., M.P.H. [address] [place] [address] Referral ID Status Reason Start Date Expiration Date Visits Requ ested Visits Authorized [id number] Closed 09/03/2017 03/02/2018 1 1 Encounter Details Date Type Department Care Team Description 10/10/2017 Office Visit Department of Shazia Garcia M.D., M.P.H. [address] [place] [phone] Sprain Lumbar Occupational Medicine Jonna Arizmendi, BOARD STACKER [address] [place] [address] Subsequent [place] [address] [place] [address] Social History Tobacco Use Types Packs/Day Years [...] slept in a senior care (including now)? Sex Assigned at Date Recorded Female 07/18/2021 2:49 PM CDT documented as of this encounter Last Filed Vital Signs Vital Sign Reading Time Taken Comments Blood Pressure 98/61 10/10/2017 8:06 AM INSIDE WIRER Pulse 78 10/10/2017 8:06 AM INSIDE WIRER Temperature - - Respiratory Rate - - Oxygen Saturation - - Inhaled Oxygen Concentration - - Weight - - Height - - Body Mass Index - - documented in this encounter Progress Notes Jonna Arizmendi APRN, C.N.P. 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 Laurel is a pleasant 22-year old female [...] duties, she is here today for recheck. Today, she reports pain as 0-2/10. Present after some work shifts, but others she completes without any discomfort. Describes pain as aching, lumbar region bilaterally. Pain doesn't radiate. Pain is alleviated by rest after her shift and aggravated by heavy work. Review of Systems: ROS is negative for pertinant findings. The following portions of the patient's history were reviewed and updated as appropriate: allergies,current medications, medical history, social history, surgical history and problem list Vitals: 10/10/17 0806 BP: 98/61 Pulse: 78 Physical Exam GENERAL: alert, relaxed female in no acute distress. ASSESSMENT / PLAN Encounter Diagnosis Name Primary? Sprain Lumbar Subsequent MMI: No PPD: Undetermined Work Related: Yes Treatment: Continue conservative measures, including continuing home therapy. Discussed activities to help strengthen core musculature. Continue to pay close attention to body mechanics with heavy work. Medications: OTC Tylenol as needed Medication side effects reviewed, including any potential driving restrictions. Next step if no significant improvement: If progress really plateaus by her next visit, she may benefit from a brief course of therapy 1-3 visits to discuss other home exercises. Discussed worsening symptoms that will bring the patient back sooner for further evaluation. Work status: full duty. See attached Report of Injury/Illness for full details. The patient indicates understanding of these issues and agrees with the plan. 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 Orders Placed This Encounter Procedures ??? Preventive Medicine office visit (clinic) Medications prescribed today: No orders of the defined types were placed in this encounter. 25 minutes spent with patient, 15 minutes spent in counseling, discussion of plan, coordination of care and completion of the return to work document. Thank you for letting me be involved in your care. DE WIRER documented in this encounter Plan of Treatment Scheduled Referrals Name Type Priority Associated Order Schedule Diagnoses Preventive Medicine Outpatient Referral Routine E xpected: office visit 11/09/2017 (clinic) (Approximate), Expires: 10/10/2020 documented as of this encounter Visit Diagnoses Diagnosis Sprain Lumbar Subsequent documented in this encounter
--- OUTSIDE RECORDS SUMMARY | 2022-08-31 12:41 | XMS_ITS | Encounter Summary ---
:1995 Author Organization [facility] Address [address] [place] [address] Care Team Providers Name Role Phone Unavailable Primary Care Provider Unavailable Encounter Details Date Type Department Care Team Description 10/10/2017 Abstract Department of Family Medicine, Provider, Historical [facility], in [place], [place] [address] [place] [address] Social History Tobacco Use Types Packs/Day Years [...] or slept in a [facility] (including now)? Sex Assigned at Date Recorded Female 07/18/2021 2:49 PM CDT documented as of this encounter Plan of Treatment Not on filedocumented as of this encounter Visit Diagnoses Not on filedocumented in this encounter
--- OUTSIDE RECORDS SUMMARY | 2022-08-31 12:41 | XMS_ITS | Encounter Summary ---
:1995 Author Organization [facility] Address [address] [place] [address] Care Team Providers Name Role Phone Unavailable Primary Care Provider Unavailable Encounter Details Date Type Department Care Team Description 09/03/2017 Hospital Encounter HX [facility] Shazia Denny M .D., M.P.H. [address] [place], [place] [phone] (Wo rk) Social History [...] or slept in a fci (including now)? Sex Assigned at Date Recorded Female 07/18/2021 2:49 PM CDT documented as of this encounter Last Filed Vital Signs Vital Sign Reading Time Taken Comments Blood Pressure 92/56 09/03/2017 7:59 AM CDT Pulse 56 09/03/2017 7:59 AM CDT Temperature - - Respiratory Rate 16 09/03/2017 7:59 AM CDT Oxygen Saturation - - Inhaled Oxygen Concentration - - Weight 63.7 kg (140 lb 6.9 oz) 09/03/2017 7:59 AM CDT Height 165 cm (5' 4.96) 09/03/2017 7:59 AM CDT Body Mass Index 23.4 09/03/2017 7:59 AM CDT documented in this encounter Medications at Time of Discharge Medication Sig Dispensed Refills Start Date End Date albuterol (for_PROVENTIL Inhale 1-2 puffs. 0 04/12/201607/29/2020 HFA,VENTOLIN HFA) 90 mcg/actuation inhaler CALCIUM CARB/VIT [...] mg tablet documented as of this encounter Progress Notes Shazia Berrios M.D. - 09/03/2017 7:54 AM CDT [id number] CHIEF COMPLAINT/REASON FOR VISIT Low back pain recheck. 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 HISTORY OF PRESENT ILLNESS Laurel is a pleasant 22-year old female here for recheck of her back pain. Pain developed after work incident on 08/09/2017. 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 She was helping slide the patient, who was large in habitus, across when she felt immediate pain in her low back, bilateral. The pain was burning quality, constant in nature. She had ED evaluation, diagnosed with muscular etiology of her pain. Given her medical history significantfor Chron's disease, she was advised to avoid NSAIDS, use acetaminophen and a prescription of valiumwas given to utilize as needed. She was allowed to return to full duty activity. Ms. Mcdonald is here today for recheck. Since her last visit she noted improvement in her symptoms. Today pain is a 3 out of 10 at rest. Pain is diffuse across her lumbar region. Pain seems to alleviated by rest and aggravated by bending and heavy lifting. She denied any radiation to the pain. No bladder or bowel incontinence noted. She is able to work her regular shift with no discomfort. She is currently using Tylenol as she cannot take any NSAIDs. Overall her symptoms seem to be improving at thispoint. Please see previous note for detail. SYSTEMS REVIEW GENERAL: No fever, chills, malaise. SKIN: No ecchymosis, rash, lesions of concern. HEART: No chest pain, palpitations, diaphoresis. LUNGS: No shortness of breath, new cough, sputum production, hemoptysis, painful breathing. MUSCULOSKELETAL: As described above. NEUROLOGIC: No loss of consciousness, head aches, numbness, tingling, weakness. MEDICATIONS Albuterol 90 mcg/inh inhalation aerosol, 2 puff(s), Inhalation, 4xDay, PRN Calcium 500+D, 1 tab(s), 2xDay Dulera 200 mcg-5 mcg/inh inhalation aerosol, 2 puff(s), asthma, Inhalation, 2xDay Humira, 40 mg, Subcut., Once Ibuprofen 200 mg oral tablet, 600 mg, 3 tab(s), PO, 4xDay, PRN Loryna oral tablet, 1 tab(s), menses, PO, Daily Remicade, 5 mg/kg, IV Rizatriptan 10 mg oral tablet, 10 mg, PO, As Directed, PRN Vitamin D3 1000 intl units oral tablet, 1,000 IntU, 1 tab(s), PO, Daily ALLERGIES Codeine (vomiting). 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 SOCIAL HISTORY Tobacco: denies Smoking Status: denies Alcohol: denies Recreation Drugs: denies PHYSICAL EXAMINATION GENERAL: She is alert, oriented, in no acute distress. VITALS: Reviewed and stable. MUSCULOSKELETAL: Back examination showed no deformity or swelling. She has some minimal discomfort on palpation of the lumbar region. Pain is midline and paraspinal in nature. Back range of motion is normal in all directions. Straight leg test negative bilaterally. Sensation and strength distally is normal. Tiptoe, heel walk normal bilaterally. Peripheral pulses normal. Capillary refill noted. IMPRESSION/REPORT/PLAN Lumbar sprain. Maximum Medical Improvement: No. Permanent Partial Disability: To be determined. Work Related: Yes. Ms. Mcdonald is here today for recheck. Since her last visit she noted improvement in her symptoms. Plan is to continue conservative treatment. Physical therapy exercise material reviewed and given to the patient. She will continue to use Tylenol for pain control. We discussed worsening symptoms that w ill bring her back to the clinic for further evaluation if needed. We also discussed the return to work process in detail. She is currently working 0.5 FTE and was able to complete her assignment up until now. Plan is to continue full duties as she can tolerate. I will see her back in about 4 weeks for recheck, sooner if needed. All questions answered to the best of my ability. This is a 25-minute visit with 15 minutes for counseling, coordination of care, discussing followup plan and completing thereturn to work paperwork. Shazia Berrios M.D./robert Electronically Signed By: SHAZIA BERRIOS MD On: 09/03/2017 04:37 PM Modified by and Electronically Signed by: SHAZIA BERRIOS MD On: 09/03/2017 04:37 PM Source: [facility] MHSDOLBEYNONRADSYS Document Id: [id number] documented in this encounter Miscellaneous Notes Miscellaneous - Dustin Styles L.P.N. 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 Intake/History Adult Paper Gluing Operator Intake/History Entered On: 09/03/2017 8:02 CDT Performed On: 09/03/2017 7:59 CDT by DUSTIN STYLES LPN Intake Chief Complaint : Back [facility] doi 08/09/17 Peripheral Pulse Rate : 56 /min (LOW) Respiratory Rate : 16 /min Heart Rhythm : Regular Systolic Blood Pressure : 92 mmHg Diastolic Blood Pressure : 56 mmHg NIBP Mean : 68 mmHg BP Location : Right upper extremity Blood Pressure Cuff Size : Regular Height : 165 cm(Converted to: 5 ft 5 inch(es), 65 inch(es)) Actual Weight : 63.7 kg(Converted to: 140 lb 7 oz) Weight Source : Standing scale Dosing Weight Clinic : 63.7 kg Clinic BSA : 1.71 Body Mass Index : 23.4 kg/m2 DUSTIN STYLES LPN - 09/03/2017 7:59 CDT General Info Information Given By : Patient Languages : Citizen Of [place] Is Patient Female and 13-50 no hysterectomy : Yes Status : Patient denies Are you ? : No DUSTIN STYLES LPN - 09/03/2017 7:59 CDT Subjective Pain Symptoms : Yes Injury : Work related DUSTIN STYLES LPN - 09/03/2017 7:59 CDT Pain Scale Pain Scale Verbal 0-10 : Open DUSTIN STYLES LPN - 09/03/2017 7:59 CDT Pain Pain Assessment Grid Pain 1 Location : Lower back Laterality : Bilateral Intensity : 3 DUSTIN STYLES LPN - 09/03/2017 7:59 CDT Dependent Habits Exposure to Tobacco Smoke : Care provider denies smoking in home Smoking Status : Never smoker Tobacco 2A : No Tobacco Use/Currently Using : No Tobacco Use/Last 30 Days : No Tobacco Use/Last 12 months : No DUSTIN STYLES LPN - 09/03/2017 7:59 CDT Caffeine Use Grid Caffeine Use : Current Type : Soft drinks Frequency : Daily Amount : 1 serving DUSTIN STYLES LPN - 09/03/2017 7:59 CDT Recreational Drug Use Grid Drug Use : None DUSTIN STYLES LPN 09/03/2017 7:59 CDT Source: [facility] POWERCHART Document Id: [id number] CDT!50 documented in this encounter Plan of Treatment Not on filedocumented as of this encounter Visit Diagnoses Not on filedocumented in this encounter
--- OUTSIDE RECORDS SUMMARY | 2022-08-31 12:41 | XMS_ITS | Encounter Summary ---
:1995 Author Organization [facility] Address [address] [place] [address] Care Team Providers Name Role Phone Unavailable Primary Care Provider Unavailable Reason for Visit Reason Comments Facial Swelling presents with left eyelid sw elling after she was stung by an insect Encounter Details Date Type Department Care Team Description 04/20/2018 Emergency [place] [facility] Allergy Bee Sting Department Inderjit INFANTE M.D. Initial (Primary Dx) [id number] [phone] (Wo rk) Social History Tobacco Use Types [...] or relatives? How often do you attend nondenominational or 1 to 4 times per year 11/11 yazidism services? Do you belong to any clubs or Yes 11/23/2021 organizations such as nondenominational groups, unions, fraternal or athletic groups, or [...] Sign Reading Time Taken Comments Blood Pressure 114/73 04/20/2018 5:56 PM CDT Pulse 78 04/20/2018 5:56 PM CDT Temperature 36.8 ??C (98.2 ??F) 04/20/2018 5:56 PM CDT Respiratory Rate 16 04/20/2018 5:56 PM CDT Oxygen Saturation 100% 04/20/2018 5:45 PM CDT Inhaled Oxygen Concentration - - Weight 63 kg (138 lb 14.2 oz) 04/20/2018 5:21 PM CDT Height - - Body Mass Index 23.14 09/03/2017 7:59 AM CDT documented in this encounter Discharge Instructions AttachmentsThe following attachments cannot be sent through Care Everywhere.Bee Wasp or Hornet Sting Adult (Danish)documented in this encounter Medications at Time of Discharge Medication Sig Dispensed Refills Start Date End Date albuterol Inhale 1-2 puffs. 0 02/10/2017 020 (for_PROVENTIL HFA,VENTOLIN HFA) 90 mcg/actuation inhaler EPINEPHrine (EPIPEN) Inject 0.3 mL (0.3 mg 0.6 each 2 04/1109/28/2019 0.3 mg/0.3 mL total) intramuscularly injection syringe once for 1 dose. Inject into the thigh. ETHINYL Take 1 tablet by mouth 0 11/24/2013 ESTRADIOL/DROSPIRENONE daily. (DROSPIRENONE-ETHINYL ESTRADIOL ORAL) HUMIRA PEN 40 mg/0.8 0 08/15/201709/11 mL pen injector kit ibuprofen Take 3 tablets by mouth 0 06/29/2014 0 08/08/2018 (for_ADVIL,MOTRIN) 200 4 (four) times a day as mg tablet needed. mesalamine Take 4.8 g by mouth. 0 02/10/201707/13 (for_LIALDA) 1.2 gram EC tablet mometasone-formoterol Inhale 2 puffs. 0 7 09/28/2019 (for_DULERA 200) 200-5 mcg/actuation inhaler norethindrone Take 0.35 mg by mouth. 0 08/02/2017 01/22/2020 (CHIOMA) 0.35 mg tablet nortriptyline 0 09/12/2017 04/24/2018 (for_PAMELOR) 25 mg capsule rizatriptan Take 10 mg by mouth See 0 06/29/2014 08/08/2018 (for_MAXALT) 10 mg Admin Instructions. tablet documented as of this encounter ED Notes Kalpesh Hogan III, M.D. - 04/20/2018 6:23 PM CDT SUBJECTIVE CHIEF COMPLAINT/REASON FOR VISIT Facial Swelling (presents with left eyelid swelling after she was stung by an insect) HISTORY OF PRESENT ILLNESS History provided by: Patient Allergic Reaction Presenting symptoms: rash and swelling Presenting symptoms: no difficulty swallowing and no wheezing Rash: Location: Neck Quality: redness Severity: Mild Onset quality: Sudden Duration: while in ED. Timing: Constant Progression: Worsening Severity: Severe Duration: 30 minutes Prior allergic episodes: No prior episodes Context: insect bite/sting Relieved by: Nothing Worsened by: Nothing Ineffective treatments: Antihistamines REVIEW OF SYSTEMS Constitutional: Negative for chills, fatigue and fever. HENT: Positive for facial swelling. Negative for congestion, ear pain, sore throat and trouble swallowing. Eyes: Negative. Respiratory: Negative for cough, shortness of breath, wheezing and stridor. Cardiovascular: Negative for chest pain, palpitations and leg swelling. Gastrointestinal: Negative for abdominal pain, constipation, diarrhea, nausea and vomiting. Endocrine: Negative for cold intolerance and heat intolerance. Genitourinary: Negative for dysuria, frequency, urgency, vaginal bleeding, vaginal discharge and vaginal pain. Musculoskeletal: Negative. Skin: Positive for rash. Negative for color change. Allergic/Immunologic: Negative. Neurological: Negative. Hematological: Negative for adenopathy. Does not bruise/bleed easily. Psychiatric/Behavioral: Negative for depression. OBJECTIVE Initial Vitals [04/20/18 1720] Temperature Pulse Rate Heart Rate Resp Rate Blood Pressure SpO2 36.8 ??C 78 -- 16 118/79 98 % Pain Score 2 PHYSICAL EXAMINATION Constitutional: She appears well-developed and well-nourished. HENT: Mouth/Throat: Mucous membranes are moist. Eyes: Conjunctivae and EOM are normal. Pupils are equal, round, and reactive to light. Periorbital edema (sight of sting noted) present on the left side. No periorbital tenderness or erythema on the left side. Neck: Normal range of motion. Neck supple. No JVD present. No neck adenopathy. No tracheal deviationpresent. Cardiovascular: Normal rate, regular rhythm, S1 normal, S2 normal and normal heart sounds. Capillaryrefill: takes less than 3 seconds, Pulmonary/Chest: Effort normal and breath sounds normal. There is normal air entry. Skin: Goose flesh like presentation on the neck Psychiatric: She has a normal mood and affect. Differential diagnosis: allergic reaction, insect bite ASSESSMENT/PLAN Impression and Plan Treatment with epinephrine resulted in resolutions of symptoms. Bee sing allergy is a new diagnosis.She is provided with a prescription for epinephrine auto injectors. Appropriate education was performed. Plan follow up with primary medical provider if symptoms not improved. Return to emergency department if symptoms worsen. Reviewed and summarized previous medical records including: Documentation from previous visits. Final Diagnoses: as of Apr 20 1900 Allergy Bee Sting Initial Kalpesh Hogan III, M.D. 04/22/18 1432 documented in this encounter Plan of Treatment Not on filedocumented as of this encounter Visit Diagnoses Diagnosis Allergy Bee Sting Initial - Primary documented in this encounter Administered Medications Inactive Administered Medications - up to 3 most recent administrations Medication Order MAR Action Action Date Dose Rate Site dexamethasone (PF) 10 Given 04/20/2018 5:33 PM 10 mg Left Ventrogluteal mg/mL injection 10 mg CDT (DECADRON) 10 mg, intramuscular, Once, On 04/20/18 at 1733, For 1 dose EPINEPHrine (EPIPEN) 0.3 mg/0.3 mL injec tion - ADS Override Pull Starting on 04/20/18 at 1728, For 1 dose, Created b y cabinet override EPINEPHrine 0.3 mg/0.3 mL Given 04/20/2018 5:31 PM CDT 0.3 mg Left Vastus Lateralis injection 0.3 mg (EPIPEN) 0.3 mg, intramuscular, As needed, anaphylaxis, Starting on 04/20/18 at 1727 documented in this encounter Active and Recently Administered Medications Times are shown in CDT. Scheduled Medication Order 04/18/2018 04/19/2018 04/20/2018 dexamethasone (PF) 10 mg/mL injection 10 mg (DECADRON) (COMPLETE D) 1733 (Given - Provider: Francine Gardner RChris) 10 mg, intramuscular, Once, 04/20/18 at 1733, For 1 dose PRN Medication Order 04/18/2018 04/19/2018 04/20/2018 EPINEPHrine 0.3 mg/0.3 mL injection 0.3 mg (EPIPEN) 1731 (Given - Provider: Francine Gardner R.N.) 0.3 mg, intramuscular, As needed, anaphylaxis, Starting Sun 04/20 at 1727 documented in this encounter
--- OUTSIDE RECORDS SUMMARY | 2022-08-31 12:41 | XMS_ITS | Encounter Summary ---
:1995 Author Organization [facility] Address [address] [place] [address] Care Team Providers Name Role Phone Unavailable Primary Care Provider Unavailable Encounter Details Date Type Department Care Team Description 06/25/2018 Clinical Communication Division of Angelic Murphy, Gastroenterology in [address] [place] [address] [phone] Social History Tobacco Use Types Packs/Day Years [...]
--- OUTSIDE RECORDS SUMMARY | 2022-08-31 12:41 | XMS_ITS | Encounter Summary ---
:1995 Author Organization [facility] Address [address] [place] [address] Care Team Providers Name Role Phone Unavailable Primary Care Provider Unavailable Encounter Details Date Type Department Care Team Description 09/27/2017 Telemedicine Department of Gastroenterology Social History Tobacco Use [...] Date/Time Associated Comments Diagnosis GASTROENTEROLOGY IMAGE Routine 09/27/2017 2:15 Re sults for this EXAM PM MECHANICAL DEVELOPER PROVER procedure are i n the results section. documented in this encounter Results GASTROENTEROLOGY IMAGE EXAM (09/27/2017 2:15 PM MECHANICAL DEVELOPER [employer]OVER) Specimen (Source) Anatomical Collection Method Collection Time Re ceived Time Location / / Volume Laterality 09/27/2017 2:13 PM MECHANICAL DEVELOPER [employer] Narrative [facility] - 09/27/2017 3:40 PM MECHANICAL DEVELOPER [employer] This order has been created and auto-finalized [...]
--- OUTSIDE RECORDS SUMMARY | 2022-08-31 12:41 | XMS_ITS | Encounter Summary ---
:1995 Author Organization [facility] Address [address] [place] [address] Care Team Providers Name Role Phone Unavailable Primary Care Provider Unavailable Reason for Visit Reason Onset Date Comments Msr. Cruz 08/06/2018 Encounter Details Date Type Department Care Team Description 08/06/2018 Clinical Communication Division of Angelic Murphy, Msr. Cruz Gastroenterology in [address] [place] [address] [phone] Social History Tobacco Use Types Packs/Day Years [...] or slept in a m[facility] (including now)? Sex Assigned at Date Recorded Female 07/18/2021 2:49 PM CDT documented as of this encounter Plan of Treatment Not on filedocumented as of this encounter Visit Diagnoses Not on filedocumented in this encounter
--- OUTSIDE RECORDS SUMMARY | 2022-08-31 12:41 | XMS_ITS | Encounter Summary ---
:1995 Author Organization [facility] Address [address] [place] [address] Care Team Providers Name Role Phone Unavailable Primary Care Provider Unavailable Encounter Details Date Type Department Care Team Description 08/29/2018 Orders Only Division of Angelic Murphy, Crohn's Diseas e Gastroenterology in M.D. ([facility]) (Primary Dx) [place], [place] [address] [place] [address] [address] [place] [address] [place] [address] [phone] Social History Tobacco Use Types Packs/Day Years [...] filedocumented as of this encounter Results (ABNORMAL) Adalimumab QN with Reflex to Ab (08/29/2018 2:41 PM CDT) [facility] gist Method Time Signature Adalimumab QN <0.8 (L) Limit of 09/01/2018 [facility] with Reflex Quantitation = 1:23 PM CDT LABORATORIE S - to Ab, S 0.8 mcg/mL [facility] mcg/mL [place] Comment: For concentrations of adalimumab less th an or equal to 5.0 mcg/mL, reflex testing for antibodie [id number] will be performed. ----ADDITIONAL INFORMATION---- This test was developed and its performa nce characteristics determined by [facility] in a manner co nsistent with [...] City/State/ZIP Code Phon e Number [facility] LABORATORIES - [address] [place], [place] [address] [facility] documented in this encounter Visit Diagnoses Diagnosis Crohn's Disease (HCC) - Primary documented in this encounter
--- OUTSIDE RECORDS SUMMARY | 2022-08-31 12:41 | XMS_ITS | Encounter Summary ---
:1995 Author Organization [facility] Address [address] [place] [address] Care Team Providers Name Role Phone Unavailable Primary Care Provider Unavailable Encounter Details Date Type Department Care Team Description 08/04/2018 Clinical Communication Division of Angelic Murphy, Gastroenterology in [address] [place] [phone] Social History Tobacco Use Types Packs/Day Years [...] or slept in a longterm (including now)? Sex Assigned at Date Recorded Female 07/18/2021 2:49 PM CDT documented as of this encounter Plan of Treatment Not on filedocumented as of this encounter Visit Diagnoses Not on filedocumented in this encounter
--- OUTSIDE RECORDS SUMMARY | 2022-08-31 12:41 | XMS_ITS | Encounter Summary ---
:1995 Author Organization [facility] Address [address] [place] [address] Care Team Providers Name Role Phone Unavailable Primary Care Provider Unavailable Reason for Referral Outpatient (Routine) - Closed Specialty Diagnoses / Procedures Referred By Contact Refer red To Contact Diagnoses Crohns Disease Of Large Intestine Without Complications (HCC) Angelic Murphy M.D. [facility] Procedures Colonoscopy [address] [place] [address] Referral ID Status Reason Start Date Expiration Date Visits Requ ested Visits Authorized [id number] Closed 03/05/2018 09/01/2018 1 1 utpatient (Routine) - Closed Specialty Diagnoses / Procedures Referred By Referred To Contact Contact Gastroenterology and Diagnoses Crohns Disease Of Large Intestine Without Complications (HCC) Angelic Murphy M.D. [facility] Hepatology [address] [place] [address] Referral ID Status Reason Start Date Expiration Date Visits Requ ested Visits Authorized [id number] Closed 02/28/2018 08/27/2018 1 1 Encounter Details Date Type Department Care Team Description 02/28/2018 Orders Only Division of Sawas, Tarek, Crohns Disease Of Gastroenterology in M.DJulia Large Intestine [place], [place] [facility] [facility] [address] [place], [place] ([facility] [place] [address] [phone] Social History Tobacco Use Types Packs/Day Years [...] Priority Associated Diagnoses Order [facility] Gastroenterology office Outpatient Routine Crohns Disease Of Expected: visit (clinic) Referral Large Intestine 07/12/2018 Without (Approximate), Complications (HCC) Expires: 02/28/2021 documented as of this encounter Visit Diagnoses Diagnosis Crohns Disease Of Large Intestine Withou t Complications (HCC) documented in this encounter
--- OUTSIDE RECORDS SUMMARY | 2022-08-31 12:42 | XMS_ITS | Encounter Summary ---
:1994 Author Organization [facility] Address [address] [place] [address] Care Team Providers Name Role Phone Unavailable Primary Care Provider Unavailable Encounter Details Date Type Department Care Team Description 08/02/2017 Hospital Encounter HX NO MAPPING Social History [...] 18 ESTRADIOL/DROSPIRENONE mouth daily. (DROSPIRENONE-ETHINYL ESTRADIOL ORAL) ibuprofen Take 3 tablets by 0 06/29/2014 [...]
--- OUTSIDE RECORDS SUMMARY | 2022-08-31 12:42 | XMS_ITS | Encounter Summary ---
:[address] [facility] Address [address] [place] [address] Care Team Providers Name Role Phone Unavailable Primary Care Provider Unavailable Encounter Details Date Type Department Care Team Description 06/13/2017 Hospital Encounter [facility] Shazia Denny M .D., M.P.H. [address] [place], [place] [phone] (Wo rk) Social History [...] 7 09/28/2019 (for_DULERA 200) 200-5 mcg/actuation inhaler oxyCODONE (for_ROXICODONE) Take 5 mg by mouth. [...] 08/08/2018 10 mg tablet See Admin Instructions. documented as of this encounter Progress Notes Shazia Berrios M.D. - 06/13/2017 10:48 AM CDT [id number] CHIEF COMPLAINT/REASON FOR VISIT Return to work discussion. 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 HISTORY OF PRESENT ILLNESS Ms Laurel Mcdonald is a 22-year-old female here for her return to work discussion. She has been off work for the past 2 months due to newly diagnosed Crohn disease which she has been seen by Dr. 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 in [place] and is currently taking Remicade injection every 8weeks and daily Imuran. She continues to have side effects from the Imuran mainly nausea and increasingly tired. The GI specialist continues to adjust her medication. She continues to have significant flare-ups that involve increased fatigue and diffuse abdominal pain. Over the past week or so she hasbeen in bed up to 3 days due to severe abdominal pain. She is scheduled to see Dr. Murphy at the end of April 2017. Evaluation completed for her Crohn visit shows extensive colitis with ulcerative findings on her colon. She has been on short-term disability for the past 2 months and has not been able towork so far. She is here today to discuss the return to work process. Mrs. Mcdonald is here today for recheck. Since her last visit, she noted improvement of her symptoms. She was able to return to work 4-hour shifts for the past couple of weeks, with no difficulties. She continues to do good. She comes in to physical therapy for work conditioning with benefit. She onlyhad 3 visits left. She reported some fatigue at the end of the 4 hours but was able to manage her shift. Denied any GI symptoms at this point. No other concern today. Please see previous note for detail. SYSTEMS REVIEW GENERAL: No fever, no chills but positive for fatigue and weakness. HEART: No chest pain, no chest pressure. LUNGS: No cough, no sneezing, no hemoptysis. ABDOMEN: As above. NEUROLOGICAL: No numbness, tingling. EXTREMITIES: No calf pain, no edema noted. MEDICATIONS Remicade ever 8 weeks injection and Imuran dose unknown. ALLERGIES Codeine. 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 No other job reported. She has been off work since February 2017 due to her newly diagnosed Crohn disease. PAST MEDICAL/SURGICAL HISTORY Significant for migraine headaches and Crohn disease. PHYSICAL EXAMINATION GENERAL: She is alert, oriented, in no acute distress. VITALS: Reviewed and stable. Rest of physical examination was deferred. IMPRESSION/REPORT/PLAN 1. Return to work discussion. 2. Crohn disease, currently on medication. I explained to the patient that there is no patient provider relationship for this evaluation and that this evaluation is conducted at the request of her employer to determine her ability to perform the essential functions of her job. Overall her symptoms seem to be improving at this point. She was able to complete 4 hours shifts, several shifts, with no difficulties. At this point will keep her on a4 hour shift for an additional 2 weeks, with a plan to increase to 6 hour shift before return visit.I anticipate patient to be able to return to 8-hour shifts in about a month or so. Please see Workability for detail. All questions answered to the best of my ability. This was a 15 minutes visit with 10 minutes for counseling, coordination of care, discussing followup plan, answering her questions, and completing the return to work paperwork. Shazia Berrios M.D./robert Electronically Signed By: SHAZIA BERRIOS MD On: 06/18/2017 05:02 PM Source: [facility] [email or web address] Document Id: [id number] documented in this encounter Plan of Treatment Not on filedocumented as of this encounter Visit Diagnoses Not on filedocumented in this encounter
--- OUTSIDE RECORDS SUMMARY | 2022-08-31 12:42 | XMS_ITS | Encounter Summary ---
:1995 Author Organization [facility] Address [address] [place] [id number] Care Team Providers Name Role Phone Unavailable Primary Care Provider Unavailable Encounter Details Date Type Department Care Team Description 02/11/2017 - Hospital Encounter HX RST Reji Rock, 02/14/2017 M.D. [address] [place] [phone] Social History Tobacco Use Types Packs/Day Years [...] or relatives? How often do you attend roman catholic or 1 to 4 times per year 11/11 jewish services? Do you belong to any clubs or Yes 11/23/2021 organizations such as roman catholic groups, unions, fraternal or athletic groups, [...] Sign Reading Time Taken Comments Blood Pressure 128/63 02/14/2017 3:02 PM NIBP - Value from CDT Chartplus. Pulse 82 02/14/2017 3:02 PM Value from artplus. CDT Temperature - - Respiratory Rate 16 02/14/2017 3:02 PM Value from C hartplus. CDT Oxygen Saturation - - Inhaled Oxygen - - Concentration Weight 60.8 kg (134 lb 0.6 02/14/2017 10:35 oz) AM CDT Height 165 cm (5' 4.96) 02/11/2017 5:48 PM CDT Body Mass Index 22.33 02/11/2017 5:48 PM CDT documented in this encounter Medications at Time of Discharge Medication Sig Dispensed Refills Start Date End Date albuterol (for_PROVENTIL Inhale 1-2 puffs. 0 04/12/201607/29/2020 HFA,VENTOLIN HFA) 90 mcg/actuation inhaler ETHINYL Take 1 tablet by 0 11/24/2013 08/08/20 18 ESTRADIOL/DROSPIRENONE mouth daily. (DROSPIRENONE-ETHINYL ESTRADIOL ORAL) ibuprofen Take 3 tablets by 0 06/29/2014 018 (for_ADVIL,MOTRIN) 200 mg mouth 4 (four) times tablet a day as needed. mesalamine (for_LIALDA) Take 4.8 g by mouth. 0 08/08/2018 1.2 gram EC tablet mometasone-formoterol Inhale 2 puffs. 0 7 09/28/2019 (for_DULERA 200) 200-5 mcg/actuation inhaler oxyCODONE Take 5 mg by mouth. 0 02/10/201704/20 (for_ROXICODONE) 5 mg immediate release tablet pantoprazole Take 40 mg by mouth. 0 02/10/2017 (for_PROTONIX) 40 mg EC tablet predniSONE Take 4 tablets (40 0 02/10/20172017 (for_DELTASONE) 10 mg mg) once daily for 1 tablet week then decrease the dose by 1/2 tablet (5 mg) every week until off. rizatriptan (for_MAXALT) Take 10 mg by mouth 0 08/08/2018 10 mg tablet See Admin Instructions. documented as of this encounter Plan of Treatment Not on filedocumented as of this encounter Procedures Procedure Name Priority Date/Time Associated Comments Diagnosis ELECTROLYTE (CHEM 4) Routine 02/13/2017 8:46 PM R esults for this PANEL, S/P CDT procedure are i n the results section. CBC WITH Routine 02/13/2017 8:46 PM Results f or this DIFFERENTIAL, B CDT procedure ar e in the results section. FERRITIN, S Routine 02/13/2017 8:46 PM Results f or this CDT procedure are i n the results section. QUANTIFERON TB GOLD, Routine 02/13/2017 9:39 AM R esults for this B CDT procedure are i n the results section. ELECTROLYTE (CHEM 4) Routine 02/13/2017 6:40 AM R esults for this PANEL, S/P CDT procedure are i n the results section. CBC WITH Routine 02/13/2017 6:40 AM Results f or this DIFFERENTIAL, B CDT procedure ar e in the results section. HXGENERAL PATHOLOGY Routine 02/12/2017 3:14 PM Re sults for this REPORT CDT procedure are i n the results section. TPMT ACTIVITY Routine 02/12/2017 2:42 PM Results for this PROFILE, RBC CDT procedure are i n the results section. COLONOSCOPY Routine 02/12/2017 11:42 AM CDT HX MICROBIOLOGY Routine 02/11/2017 11:34 Results for this REPORTS PM CDT procedure are i n the results section. HX MICROBIOLOGY Routine 02/11/2017 11:19 Results for this REPORTS PM CDT procedure are i n the results section. ELECTROLYTE (CHEM 4) Routine 02/11/2017 9:20 PM R esults for this PANEL, S/P CDT procedure are i n the results section. HCV AB SCRN W/REFLEX Routine 02/11/2017 9:20 PM R esults for this TO HCV PCR, S CDT procedure are in the results section. HBS ANTIBODY, SERUM Routine 02/11/2017 9:20 PM Re sults for this CDT procedure are i n the results section. HEPATITIS B SURFACE Routine 02/11/2017 9:20 PM Re sults for this ANTIGEN CDT procedure are i n the results section. PROTHROMBIN TIME Routine 02/11/2017 9:20 PM Resul ts for this (PT), P CDT procedure are i n the results section. CBC WITH Routine 02/11/2017 9:20 PM Results f or this DIFFERENTIAL, B CDT procedure ar e in the results section. C-REACTIVE PROTEIN Routine 02/11/2017 9:20 PM Res ults for this (CRP), S/P CDT procedure are i n the results section. ALBUMIN, S/P Routine 02/11/2017 9:20 PM Results f or this CDT procedure are i n the results section. GI PATHOGEN PANEL, Routine 02/11/2017 2:10 PM Res ults for this PCR, F CDT procedure are i n the results section. documented in this encounter Results (ABNORMAL) Electrolyte (Chem 4) Panel (02/13/2017 8:46 PM CDT) [facility] Method Time Signature Chloride, S 100 98 - 107 [facility] MMOL/L [facility] HX Bicarbonate, 22 22 - 29 [facility] P/S MMOL/L LABORATORIES [facility] eGFR-Black/Afri >60 >60 [facility] can Syrian ML/MIN/BS LABORATORIES - A [facility] BUN (Blood Urea 10 6 - 21 [facility] Nitrogen), S MG/DL [facility] Sodium, S 136 135 - 145 [facility] MMOL/L [facility] Potassium, S 4.6 3.6 - 5.2 [facility] MMOL/L [facility] Creatinine 0.6 0.6 - 1.1 [facility] MG/DL [facility] eGFR >60 >60 [facility] Non-Black/Afric ML/MIN/BS LABORATORIES - an Syrian A [facility] Anion Gap 14 7 - 15 [facility] Glucose, S 196 (H) 70 - 140 [facility] MG/DL LABORATORIES - [facility] Specimen Anatomical Collection Method Collection Time Receive d Time (Source) Location / / Volume Laterality 02/13/2017 8:46 PM 7 8:46 CDT PM CDT Gino Bryant M.D. LAB BLOOD ADD-ON Performing Organization Address City/[facility] Phon e Number [facility] LABORATORIES - [address] [place] [phone] [facility] Ferritin (02/13/2017 8:46 PM CDT) P athologist Signature Ferritin, S 163 11 - 307 [facility] MCG/L LABORATORIES - [facility] Specimen Anatomical Collection Method Collection Time Receive d Time (Source) Location / / Volume Laterality 02/13/2017 8:46 PM 7 8:46 CDT PM CDT Gino Bryant M.D. LAB BLOOD ADD-ON Performing Organization Address City/[facility] Phon e Number [facility] LABORATORIES - [address] [place] [phone] [facility] (ABNORMAL) CBC with Differential (02/13/2017 8:46 PM CDT) Patholo gist Method Time Signature Hemoglobin 9.6 (L) 12.0 - [facility] 15.5 G/DL [facility] Hematocrit 29.7 (L) 34.9 - [facility] 44.5 % [facility] RBC Distrib 14.6 11.9 - [facility] Width 15.5 % [facility] Platelet Count 404 150 - 450 [facility] X10(9)/L [facility] Leukocytes 9.0 3.5 - [facility] 10.5 LABORATORIES - X10(9)/L [facility] Neutrophils 7.09 (H) 1.70 - [facility] 7.00 LABORATORIES - X10(9)/L [facility] Comment: Rechecked Eosinophils 0.00 (L) 0.05 - 0.50 X10(9)/L [facility] S Basophils 0.01 0.00 - 0.30 X10(9)/L [facility] Erythrocytes 3.48 (L) 3.90 - 5.03 X10(12)/L [facility] S MCV 85.3 81.6 - 98.3 [place] [facility] LAB ORATORIES - [facility] Lymphocytes 1.06 0.90 - 2.90 X10(9)/L [facility] - [facility] Monocytes 0.79 0.30 - 0.90 X10(9)/L [facility] - [facility] Specimen Anatomical Collection Method Collection Time Receive d Time (Source) Location / / Volume Laterality 02/13/2017 8:46 PM 7 8:46 CDT PM CDT Gino Bryant M.D. LAB BLOOD ADD-ON Performing Organization Address City/State/ZIP Code Phon e Number [facility] - [address] [place], [place] [address] [facility] QuantiFERON-TB Gold for Detection of Latent Tuberculosis (02/13/2017 9:39 AM CDT) [facility] Method Time Signature QuantiFERON-T Negative Negative [facility] B Gold Result [facility] Comment: No interferon-gamma response to M. tuber culosis antigens ? was detected. Infection with M. tubercul osis is unlikely. ? A negative result alone does not exclude infection with ? M. tuberculosis. ? For detailed information regarding test interpretation see: ? [email or web address] ? Clinical+and+Interpretive/55441 ? TB Ag minus Nil Result 0.00 IU/ML [facility] Mitogen minus Nil Result 0.80 IU/ML [facility] Nil Result 0.02 IU/ML [facility] LABORAT ORIES [facility] Specimen Anatomical Collection Method Collection Time Receive d Time (Source) Location / / Volume Laterality 02/13/2017 9:39 AM 7 9:39 CDT AM CDT Gino Bryant M.D. LAB MICROBIOLOGY - BLOOD ORD ERABLES Performing Organization Address City/State/ZIP Code Phon e Number [facility] - [address] [place], [place] [address] [facility] (ABNORMAL) Electrolyte (Chem 4) Panel (02/13/2017 6:40 AM CDT) [facility] gist Method Time Signature Chloride, S 103 98 - 107 [facility] MMOL/L [facility] HX Bicarbonate, 25 22 - 29 [facility] P/S MMOL/L [facility] Creatinine 0.7 0.6 - 1.1 [facility] MG/DL [facility] eGFR >60 >60 [facility] Non-Black/Afric ML/MIN/BS LABORATORIES - an Syrian A [facility] eGFR-Black/Afri >60 >60 [facility] can Syrian ML/MIN/BS LABORATORIES - A [facility] BUN (Blood Urea 10 6 - 21 [facility] Nitrogen), S MG/DL LABORATORIES - [facility] Sodium, S 141 135 - 145 [facility] MMOL/L LABORATORIES - [facility] Potassium, S 4.6 3.6 - 5.2 [facility] MMOL/L LABORATORIES - [facility] Anion Gap 13 7 - 15 [facility] LABORATORIES - [facility] Glucose, S 190 (H) 70 - 140 [facility] MG/DL LABORATORIES - [facility] Specimen Anatomical Collection Method Collection Time Receive d Time (Source) Location / / Volume Laterality 02/13/2017 6:40 AM 7 6:40 CDT AM CDT Gino Bryant M.D. LAB BLOOD ADD-ON Performing Organization Address City/State/ZIP Code Phon e Number [facility] LABORATORIES - [address] [place], [place] [address] [facility] (ABNORMAL) CBC with Differential (02/13/2017 6:40 AM CDT) [facility] gist Method Time Signature Hemoglobin 10.6 (L) 12.0 - [facility] 15.5 G/DL LABORATORIES - [facility] Hematocrit 32.6 (L) 34.9 - [facility] 44.5 % [facility] RBC Distrib 14.7 11.9 - [facility] Width 15.5 % [facility] Platelet Count 425 150 - 450 [facility] X10(9)/L LABORATORIES [facility] Leukocytes 8.5 3.5 - [facility] 10.5 LABORATORIES - X10(9)/L [facility] Neutrophils 7.16 (H) 1.70 - [facility] 7.00 LABORATORIES - X10(9)/L [facility] Erythrocytes 3.81 (L) 3.90 - [facility] 5.03 LABORATORIES - X10(12)/L [facility] MCV 85.6 81.6 - [facility] 98.3 FL [facility] Lymphocytes 0.87 (L) 0.90 - [facility] 2.90 LABORATORIES - X10(9)/L [facility] Monocytes 0.44 0.30 - [facility] 0.90 LABORATORIES - X10(9)/L [facility] Eosinophils 0.00 (L) 0.05 - [facility] 0.50 LABORATORIES - X10(9)/L [facility] Basophils 0.01 0.00 - [facility] 0.30 LABORATORIES - X10(9)/L [facility] Specimen Anatomical Collection Method Collection Time Receive d Time (Source) Location / / Volume Laterality 02/13/2017 6:40 AM 7 6:40 CDT AM CDT Gino Bryant M.D. LAB BLOOD ADD-ON Performing Organization Address City/State/ZIP Code Phon e Number [facility] LABORATORIES - [address] [place], [place] [address] [facility] Hx general Pathology Report (02/12/2017 3:14 PM CDT) Specimen Anatomical Collection Method Collection Time Receive d Time (Source) Location / / Volume Laterality 02/12/2017 3:14 PM 7 3:14 CDT PM CDT Narrative [facility] - 02/12/2017 3:14 PM CDT ??02/12/2017 General Biopsy ? ([id number]) ??REVISED REPORT (Addendum/Procedure in cluded) ?? Requested By: Reji Whitman M.D. ?? [phone] ? Additional Physician: ??Elier Moser M.D. ? SLIDE DISPOSITION: ? DIAGNOSIS: ?? A. ??Colon, endoscopic biopsy: ??Modera te active chronic colitis without granulomas or specific features , with ulceration. ??There is no dysplasia. ??CMV immunostain is pend ing and results will be reported in an addendum. ? 02/13/2017 11:48 Interpreted by: Josafat Wagner M.D. [id number] Report electronically signed by Josafat Wagner M.D. Transcribed by: [email or web address] 02/13/2017 10:27:15 ?? Analyte Specific Reagent ?([id number]) Cytomegalovirus, Immuno stain ??test was developed and its performance characteristics determi maria c by Laboratory Medicine and Pathology, [facility]. This test h as not been cleared or approved by the U.S. Food and Drug Admi nistration. ?ADDENDUM: CMV immunostain is negative. ? Transcribed by: ??[email or web address] ??02/14/2017 12:3 5:59 ? Signed by Josafat Wagner M.D. 02/15/20 17 14:49:55 ? TISSUE DESCRIPTION: [id number] ?A. ??Received in formalin label ed with the patient's name and and la beled as colon-colon are nine pale haynes irregular soft tissue fra gments, ranging from 0.2-0.4 cm in greatest dimension. The specimens are submitted en toto in cassette A1. ? Part A: ??Colon, Colon, endoscopic biop sy ?1 Colon ?? GI Path ? Procedure Note 02/01/2018 02/12/2017 General Biopsy ([id number]) REVISED REPORT (Addendum/Procedure incl uded) Requested By: Reji Whitman M.D. [phone] Additional Physician: Elier Moser M.D. [phone] SLIDE DISPOSITION: DIAGNOSIS: A. Colon, endoscopic biopsy: Moderate a ctive chronic colitis without granulomas or specific features , with ulceration. There is no dysplasia. CMV immunostain is pendin g and results will be reported in an addendum. 02/13/2017 11:48 Interpreted by: Josafat Wagner M.D. [phone] Report electronically signed by Josafat Wagner M.D. Transcribed by: [email or web address] 02/13/2017 10:27:15 Analyte Specific Reagent ([id number]) Cytomegalovirus, Immunostain te st was developed and its performance characteristics determi maria c by Laboratory Medicine and Pathology, [facility]. This test h as not been cleared or approved by the U.S. Food and Drug Admi nistration. ADDENDUM: CMV immunostain is negative. Transcribed by: [email or web address] 02/14/2017 12:35:59 Signed by Josafat Wagner M.D. 02/15/20 17 14:49:55 TISSUE DESCRIPTION: [id number] A1 A. Received in formalin labeled with th e patient's name and and la beled as colon-colon are nine pale haynes irregular soft tissue fra gments, ranging from 0.2-0.4 cm in greatest dimension. The specimens are submitted en toto in cassette A1. Part A: Colon, Colon, endoscopic biopsy 1 Colon GI Path Reji Whitman M.D. LAB PATHOLOGY/CYTOLOGY ORDER ZURI Performing Organization Address City/State/ZIP Code Phon e Number [facility]ORATORIES - [address] [place], [place] [address] [facility] (ABNORMAL) Thiopurine Methyltransferase (TPMT) Activity Profile, Erythrocytes (02/12/2017 2:42 PM CDT) [facility] gist Method Time Signature 6-Methylmercap 3.15 3.00 - [facility] topurine 6.66 LABORATORIES - NMOL/ML/H [facility] HX 5.01 (L) 5.04 - [facility] 6-Methylmercap 9.57 LABORATORIES - topurine, NMOL/ML/H [facility] 6-Methylthiogu 3.35 2.70 - [facility] anine riboside 5.84 LABORATORIES - NMOL/ML/H [facility] Reviewed By . [facility]ORATORIES - [facility] Comment: Johnny Smith M.D., Ph.D. Interpretation *Normal* In this whole blood [facility]IES - sample, the profile of activity of [facility] thiopurine methyltransferase using three different substrates was normal or essentially normal. Comment: ADDITIONAL INFORMATIO N Liquid Chromatography-Tandem Mass Spectr ometry (LC-MS/MS) This test was developed and its performa nce characteristics determined by [facility] in a manner consistent with CLIA requirements. This test has not been cleared or approved by the [place] [facility] d and Drug Administration. Specimen Anatomical Collection Method Collection Time Receive d Time (Source) Location / / Volume Laterality 02/12/2017 2:42 PM 7 2:42 CDT PM CDT Gino Bryant M.D. LAB GENETIC TESTING Performing Organization Address City/State/ZIP Code Phon e Number [facility] - [address] [place], [place] [address] [facility] Colonoscopy (02/12/2017 11:42 AM CDT) Specimen (Source) Anatomical Collection Method Collection Time Re ceived Time Location / / Volume Laterality 02/12/2017 11:42 AM CDT Reji Whitman M.D. GI PROCEDURE ORDERABLES Performing Organization Address City/[facility]/ZIP Code Phon e Number [facility] Microbiology Reports (02/11/2017 11:34 PM CDT) Specimen Anatomical Collection Method Collection Time Receive d Time (Source) Location / / Volume Laterality 02/11/2017 11:34 02/11/2017 PM CDT 11:35 PM CDT Narrative [facility] - 02/17/2017 1:02 AM CDT 11-FEB-2017 BLOOD, ? SoftOrd# [id number] ?(Ordered 11-FEB-2017; Collec alicia 11-FEB-2017 23:34; Received 11-FEB-2017 23:49) ?[facility] ?Received Bactec aerobic and Bactec anaerobic bottles ?BACTERIA/TIMMY CULTURE, BLOOD ? (Reported 17-FEB-2017 01:02) FINAL ?No growth after 5 days of in cubation. Procedure Note 03/28/2018 11-FEB-2017 BLOOD, SoftOrd# [id number] (Ordered 11-FEB-2017; Collected 2016 23:34; Received 11-FEB-2017 23:49) [facility] Received Bactec aerobic and Bactec anae robic bottles BACTERIA/TIMMY CULTURE, BLOOD (Repor alicia 17-FEB-2017 01:02) FINAL No growth after 5 days of incubation. Historical Provider LAB MICROBIOLOGY - GENERAL O RDERABLES Performing Organization Address City/State/ZIP Code Phon e Number [facility] - [address] [place], [place] [address] [facility] Microbiology Reports (02/11/2017 11:19 PM CDT) Specimen Anatomical Collection Method Collection Time Receive d Time (Source) Location / / Volume Laterality 02/11/2017 11:19 02/11/2017 PM CDT 11:20 PM CDT Narrative [facility] - 02/17/2017 1:02 AM CDT 11-FEB-2017 BLOOD, ? SoftOrd# [id number] ?(Ordered 11-FEB-2017; Collec alicia 11-FEB-2017 23:19; Received 11-FEB-2017 23:48) ?[facility] ?Received Bactec aerobic and Bactec anaerobic bottles ?BACTERIA/TIMMY CULTURE, BLOOD ? (Reported 17-FEB-2017 01:02) FINAL ?No growth after 5 days of in cubation. Procedure Note 03/28/2018 11-FEB-2017 BLOOD, SoftOrd# [id number] (Ordered 11-FEB-2017; Collected 2016 23:19; Received 11-FEB-2017 23:48) [facility] Received Bactec aerobic and Bactec anae robic bottles BACTERIA/TIMMY CULTURE, BLOOD (Kobe vargas 17-FEB-2017 01:02) FINAL No growth after 5 days of incubation. Gino Bryant M.D. LAB MICROBIOLOGY - GENERAL O RDERABLES Performing Organization Address City/[facility]/ZIP Code Phon e Number [facility] - [address] [place] [address] [facility] HCV AB Scrn w/Reflex to HCV PCR, S (02/11/2017 9:20 PM CDT) [facility] JDCPhosphate Method Time Signature HCV Ab Negative Negative [facility] Screen, S [facility] Comment: Jezrom-fi-gmewod ratio is <1.00 . Specimen Anatomical Collection Method Collection Time Receive d Time (Source) Location / / Volume Laterality 02/11/2017 9:20 PM 7 9:20 CDT PM CDT Gino Bryant M.D. LAB MICROBIOLOGY - BLOOD ORD MATILDE Performing Organization Address City/[facility]/ZIP Code Phon e Number [facility]IES - [address] [place] [address] [facility] (ABNORMAL) PT (Prothrombin Time) with INR (02/11/2017 9:20 PM CDT) [facility] Method Time Signature Prothrombin 13.6 (H) 9.4 - [facility] Time, P 12.5 SEC [facility] INR 1.2 0.9 - 1.1 [facility] Comment: ? ADDITIONAL INFORMATIO N ? Standard intensity warfarin therapeutic range: 2.0 to 3.0 ? High intensity warfarin therapeutic rang e: 2.5 to 3.5 ? Specimen Anatomical Collection Method Collection Time Receive d Time (Source) Location / / Volume Laterality 02/11/2017 9:20 PM 7 9:20 CDT PM CDT Gino Bryant M.D. LAB BLOOD ADD-ON Performing Organization Address City/State/ZIP Code Phon e Number [facility]IES - [address] [place], [place] [address] [facility] Hepatitis B Surface, Ab (02/11/2017 9:20 PM CDT) [facility] gist Method Time Signature HBs Antibody,S Indet Unvaccinated [facility] : Negative; LABORATORIES - Vaccinated: [facility] Comment: Unable to determine if anti-HBs is prese nt at levels ? consistent with immunity. Patient's immu ne status should ? be further assessed by considering other clinical ? information or repeat testing in 1 to 3 months. ? HBs Antibody, 9.9 Unvaccinated: <5.0; [facility] LABORATORIES Quantitative, S Vaccinated: >=12.0 MIU/ML - [facility] Specimen Anatomical Collection Method Collection Time Receive d Time (Source) Location / / Volume Laterality 02/11/2017 9:20 PM 7 9:20 CDT PM CDT Gino Bryant M.D. LAB MICROBIOLOGY - BLOOD ORD ERABLES Performing Organization Address City/[facility]/ZIP Code Phon e Number [facility] LABORATORIES - [address] [place], [place] [address] [facility] (ABNORMAL) CRP (C-Reactive Protein) (02/11/2017 9:20 PM CDT) [facility] gist Method Time Signature C-Reactive 198.3 (H) <=8.0 [facility] Protein (CRP), MG/L LABORATORIES - [facility] Specimen Anatomical Collection Method Collection Time Receive d Time (Source) Location / / Volume Laterality 02/11/2017 9:20 PM 7 9:20 CDT PM CDT Gino Bryant M.D. LAB BLOOD ADD-ON Performing Organization Address City/State/ZIP Code Phon e Number [facility]IES - [address] [place], [place] [address] [facility] Hepatitis B Surface Antigen (02/11/2017 9:20 PM CDT) [facility] Method Time Signature HBs Antigen, Negative Negative [facility] S LABORATORIES - [facility] Specimen Anatomical Collection Method Collection Time Receive d Time (Source) Location / / Volume Laterality 02/11/2017 9:20 PM 7 9:20 CDT PM CDT Gino Bryant M.D. LAB MICROBIOLOGY - BLOOD ORD ERABLES Performing Organization Address City/[facility]/ZIP Code Phon e Number [facility] - [address] [place], [place] [address] [facility] (ABNORMAL) Electrolyte (Chem 4) Panel (02/11/2017 9:20 PM CDT) [facility] Time Signature Sodium, S 138 135 - 145 [facility] MMOL/L LABORATORIES - [facility] Potassium, S 3.9 3.6 - 5.2 [facility] MMOL/L LABORATORIES - [facility] Chloride, S 97 (L) 98 - 107 [facility] MMOL/L LABORATORIES - [facility] HX Bicarbonate, 24 22 - 29 [facility] P/S MMOL/L LABORATORIES - [facility] Creatinine 0.8 0.6 - 1.1 [facility] MG/DL LABORATORIES - [facility] eGFR >60 >60 [facility] Non-Black/Afric ML/MIN/BSA LABORATORIES - an Syrian [facility] eGFR-Black/Afri >60 >60 [facility] can Syrian ML/MIN/BSA LABORATORIES - [facility] BUN (Blood Urea 8 6 - 21 [facility] Nitrogen), S MG/DL LAB[facility]ATORIES - [facility] Anion Gap 17 (H) 7 - 15 [facility]ORATORIES - [facility] Glucose, S 108 70 - 140 [facility] MG/DL LAB[facility]ATORIES - [facility] Specimen Anatomical Collection Method Collection Time Receive d Time (Source) Location / / Volume Laterality 02/11/2017 9:20 PM 7 9:20 CDT PM CDT Gino Bryant M.D. LAB BLOOD ADD-ON Performing Organization Address City/[facility]/ZIP Code Phon e Number [facility] LABORATORIES - [address] [place], [place] [address] [facility] (ABNORMAL) CBC with Differential (02/11/2017 9:20 PM CDT) [facility] Method Time Signature Hemoglobin 11.7 (L) 12.0 - [facility] 15.5 G/DL LABORATORIES - [facility] Hematocrit 35.9 34.9 - [facility] 44.5 % LABORATORIES - [facility] RBC Distrib 14.1 11.9 - [facility] Width 15.5 % LABORATORIES - [facility] Platelet Count 452 (H) 150 - 450 [facility] X10(9)/L LABORATORIES - [facility] Leukocytes 14.8 (H) 3.5 - [facility] 10.5 LABORATORIES - X10(9)/L [facility] Erythrocytes 4.24 3.90 - [facility] 5.03 LABORATORIES - X10(12)/L [facility] MCV 84.7 81.6 - [facility] 98.3 [place] LABORATORIES - [facility] Specimen Anatomical Collection Method Collection Time Receive d Time (Source) Location / / Volume Laterality 02/11/2017 9:20 PM 7 9:20 CDT PM CDT Gino Bryant M.D. LAB BLOOD ADD-ON Performing Organization Address City/[facility] Phon e Number [facility] LABORATORIES - [address] [place] [phone] [facility] (ABNORMAL) Albumin (02/11/2017 9:20 PM CDT) P athologist Signature Albumin, S 3.2 (L) 3.5 - 5.0 [facility] G/DL [facility]ORATORIES - [facility] Specimen Anatomical Collection Method Collection Time Receive d Time (Source) Location / / Volume Laterality 02/11/2017 9:20 PM 7 9:20 CDT PM CDT Gino Bryant M.D. LAB BLOOD ADD-ON Performing Organization Address City/[facility] Phon e Number [facility]IES - [address] [place] [phone] [facility] GI Pathogen Panel, PCR, F (02/11/2017 2:10 PM CDT) [facility] Method Time Signature C. difficile toxin Negative Negative [facility] LAB[facility]IES - [facility] Plesiomonas Negative Negative [facility] shigelloides LABORATORIES - [facility] Vibrio cholerae Negative Negative [facility]IES - [facility] Yersinia species Negative Negative [facility]IES - [facility] Enterotoxigenic E. Negative Negative [facility] coli (ETEC) [facility] Shiga toxin Negative Negative [facility] producing E. coli [facility] Cyclospora Negative Negative [facility] cayetanensis [facility] Entamoeba Negative Negative [facility] histolytica [facility] Astrovirus Negative Negative [facility] Norovirus GI/GII Negative Negative [facility] Specimen Source STOOL [facility] Campylobacter Negative Negative [facility] species [facility] Salmonella species Negative Negative [facility] Vibrio species Negative Negative [facility] Enteroaggregative E. Negative Negative [facility] coli (EAEC) [facility] Enteropathogenic E. Negative Negative [facility] coli (EPEC) [facility] Shigella/Enteroinvas Negative Negative [facility] IC susannah E. coli [facility] Cryptosporidium Negative Negative [facility] species [facility] Giardia Negative Negative [facility] Adenovirus F40/41 Negative Negative [facility] HX ROTAVIRUS Negative Negative [facility] Sapovirus Negative Negative [facility] Comment: ? ADDITIONAL INFORMATIO N ? This assay is performed using the FDA-[employer] ? GI Panel ([employer] ? Specimen Anatomical Collection Method Collection Time Receive d Time (Source) Location / / Volume Laterality 02/11/2017 2:10 PM 7 2:10 CDT PM CDT Kimi Galvan M.D., Ph.D. LAB MICROBIOLOGY - GENERA L ORDERABLES Performing Organization Address City/State/[facility] Code Phon e Number [facility]IES - [address] [place], [place] [address] [facility] documented in this encounter Visit Diagnoses Not on filedocumented in this encounter
--- OUTSIDE RECORDS SUMMARY | 2022-08-31 12:42 | XMS_ITS | Encounter Summary ---
:1995 Author Organization [facility] Address [address] [place] [address] Care Team Providers Name Role Phone Unavailable Primary Care Provider Unavailable Encounter Details Date Type Department Care Team Description 02/27/2017 - Hospital Encounter HX RST EMERGENCY Provider, Historic al 02/28/2017 TRAUMA UNI Social History Tobacco Use Types Packs/Day Years [...] or slept in a jail (including now)? Sex Assigned at Date Recorded Female 07/18/2021 2:49 PM CDT documented as of this encounter Medications at Time of Discharge Medication Sig Dispensed Refills Start Date End Date albuterol (for_PROVENTIL Inhale 1-2 puffs. 0 04/0 12/201607/29/2020 HFA,VENTOLIN HFA) 90 mcg/actuation inhaler ETHINYL Take [...] Procedure Name Priority Date/Time Associated Comments Diagnosis C. DIFFICILE TOXIN PCR, Routine 02/28/2017 7:49 R esults for this F PM CDT procedure are i n the results section. HX MICROBIOLOGY REPORTS Routine 02/28/2017 2:15 R esults for this PM CDT procedure are i n the results section. HX MICROBIOLOGY REPORTS Routine 02/28/2017 2:06 R esults for this PM CDT procedure are i n the results section. CBC WITH DIFFERENTIAL, B Routine 02/28/2017 2:06 Results for this PM CDT procedure are i n the results section. C-REACTIVE PROTEIN Routine 02/28/2017 2:06 Result s for this (CRP), S/P PM CDT procedure are i n the results section. BUN (BLOOD UREA Routine 02/28/2017 2:06 Results f or this NITROGEN), S/P PM CDT procedure are in the results section. SODIUM, S/P Routine 02/28/2017 2:06 Results for this PM CDT procedure are i n the results section. POTASSIUM, S/P Routine 02/28/2017 2:06 Results fo r this PM CDT procedure are i n the results section. LIPASE, S/P Routine 02/28/2017 2:06 Results for this PM CDT procedure are i n the results section. CREATININE WITH EGFR, Routine 02/28/2017 2:06 Res ults for this S/P PM CDT procedure are i n the results section. CT ABDOMEN PELVIS WITH Routine 02/27/2017 11:12 R esults for this IV CONTRAST PM CDT procedure are i n the results section. HX MICROBIOLOGY REPORTS Routine 02/27/2017 10:28 Results for this PM CDT procedure are i n the results section. HX MICROBIOLOGY REPORTS Routine 02/27/2017 10:24 Results for this PM CDT procedure are i n the results section. CBC WITH DIFFERENTIAL, B Routine 02/27/2017 8:56 Results for this PM CDT procedure are i n the results section. HUMAN CHORIONIC Routine 02/27/2017 8:56 Results f or this GONADOTROPIN (HCG), PM CDT procedur e are in [place], the results section. ASPARTATE Routine 02/27/2017 8:56 Results for this AMINOTRANSFERASE (AST), PM CDT proc edure are in S/P the results section. ALKALINE PHOSPHATASE, Routine 02/27/2017 8:56 Res ults for this S/P PM CDT procedure are i n the results section. LIPASE, S/P Routine 02/27/2017 8:56 Results for this PM CDT procedure are i n the results section. LACTATE, B/P Routine 02/27/2017 8:56 Results for this PM CDT procedure are i n the results section. BILIRUBIN DIRECT, S/P Routine 02/27/2017 8:56 Res ults for this PM CDT procedure are i n the results section. BILIRUBIN, TOT, S/P Routine 02/27/2017 8:56 Resul ts for this PM CDT procedure are i n the results section. BASIC METABOLIC PANEL, Routine 02/27/2017 8:56 Re sults for this S/P PM CDT procedure are i n the results section. GLUCOSE POCT, B Routine 02/27/2017 8:54 Results f or this PM CDT procedure are i n the results section. documented in this encounter Results C. difficile Toxin PCR, F (02/28/2017 7:49 PM CDT) [facility] Method Time Signature Specimen STOOL [facility] Source LABORATORIES (C.difficile [facility] C. difficile Negative Not Applicable [facility] toxin LABORATORIES - [facility] Comment: ? ADDITIONAL INFORMATIO N ? This test was developed and its performa nce characteristics determined by ? [facility] in a manner consistent with CLIA requirements. This test has not ? been cleared or approved by the [facility] d and Drug Administration. ? Specimen Anatomical Collection Method Collection Time Receive d Time (Source) Location / / Volume Laterality 02/28/2017 7:49 PM 7 7:49 CDT PM CDT Angelic Murphy M.D. LAB MICROBIOLOGY - GENERAL O RDERABLES Performing Organization Address City/State/ZIP Code Phon e Number [facility] - [address] [place], [place] [address] [facility] Microbiology Reports (02/28/2017 2:15 PM CDT) Specimen Anatomical Collection Method Collection Time Receive d Time (Source) Location / / Volume Laterality 02/28/2017 2:15 PM 7 2:15 CDT PM CDT Narrative [facility] - [facility] - 03/05/2017 4:02 PM CDT 28-FEB-2017 BLOOD, ? SoftOrd# [id number] ?(Ordered 28-FEB-2017; Collec alicia 28-FEB-2017 14:15; Received 28-FEB-2017 15:03) [facility] ?BACTERIA/TIMMY CULTURE, BLOOD ? (Reported 05-MAR-2017 16:02) FINAL ?No growth after 5 days of in cubation. Procedure Note 03/28/2018 28-FEB-2017 BLOOD, SoftOrd# [id number] (Ordered 28-FEB-2017; Collected 2016 14:15; Received 28-FEB-2017 15:03) [facility] BACTERIA/TIMMY CULTURE, BLOOD (Repor alicia 05-MAR-2017 16:02) FINAL No growth after 5 days of incubation. Angelic Murphy M.D. LAB MICROBIOLOGY - GENERAL O RDERABLES Performing Organization Address City/State/RUST Code Phon e Number [facility] - [address], [place] [address] [facility] Microbiology Reports (02/28/2017 2:06 PM CDT) Specimen Anatomical Collection Method Collection Time Receive d Time (Source) Location / / Volume Laterality 02/28/2017 2:06 PM 7 2:07 CDT PM CDT Narrative [facility] - [facility] - 03/05/2017 4:02 PM CDT 28-FEB-2017 BLOOD, ? SoftOrd# [id number] ?(Ordered 28-FEB-2017; Collec alicia 28-FEB-2017 14:06; Received 28-FEB-2017 15:04) ?[facility] ?BACTERIA/TIMMY CULTURE, BLOOD ? (Reported 05-MAR-2017 16:02) FINAL ?No growth after 5 days of in cubation. Procedure Note 03/28/2018 28-FEB-2017 BLOOD, SoftOrd# [id number] (Ordered 28-FEB-2017; Collected 2016 14:06; Received 28-FEB-2017 15:04) [facility] BACTERIA/TIMMY CULTURE, BLOOD (Repor alicia 05-MAR-2017 16:02) FINAL No growth after 5 days of incubation. Angelic Murphy M.D. LAB MICROBIOLOGY - GENERAL O RDERABLES Performing Organization Address City/[facility]/ZIP Code Phon e Number [facility] LABORATORIES - [address] [place] [address] [facility] (ABNORMAL) CRP (C-Reactive Protein) (02/28/2017 2:06 PM CDT) [facility] [employer] Method Time Signature C-Reactive 49.8 (H) <=8.0 [facility] Protein (CRP), MG/L [facility] Specimen Anatomical Collection Method Collection Time Receive d Time (Source) Location / / Volume Laterality 02/28/2017 2:06 PM 7 2:06 CDT PM CDT Angelic Murphy M.D. LAB BLOOD ADD-ON Performing Organization Address City/[facility]/ZIP Code Phon e Number [facility] LABORATORIES - [address] [address] [facility] Sodium (02/28/2017 2:06 PM CDT) P athologist Signature Sodium, S 136 135 - 145 [facility] MMOL/L [facility] Specimen Anatomical Collection Method Collection Time Receive d Time (Source) Location / / Volume Laterality 02/28/2017 2:06 PM 7 2:06 CDT PM CDT Angelic Murphy M.D. LAB BLOOD ADD-ON Performing Organization Address City/[facility]/ZIP Code Phon e Number [facility] LABORATORIES - [address] [address] [facility] (ABNORMAL) CBC with Differential (02/28/2017 2:06 PM CDT) [facility] [employer] Method Time Signature Hemoglobin 9.6 (L) 12.0 - [facility] 15.5 G/DL [facility] Hematocrit 30.7 (L) 34.9 - [facility] 44.5 % LABORATORIES - [facility] Leukocytes 9.9 3.5 - [facility] 10.5 LABORATORIES - X10(9)/L [facility] Neutrophils 7.13 (H) 1.70 - [facility] 7.00 LABORATORIES - X10(9)/L [facility] Eosinophils 0.09 0.05 - [facility] 0.50 LABORATORIES - X10(9)/L [facility] Basophils 0.04 0.00 - [facility] 0.30 LABORATORIES - X10(9)/L [facility] Erythrocytes 3.48 (L) 3.90 - [facility] 5.03 LABORATORIES - X10(12)/L [facility] MCV 88.2 81.6 - [facility] 98.3 [place] LABORATORIES - [facility] RBC Distrib 16.4 (H) 11.9 - [facility] Width 15.5 % LABORATORIES - [facility] Platelet Count 356 150 - 450 [facility] X10(9)/L LABORATORIES - [facility] Lymphocytes 2.34 0.90 - [facility] 2.90 LABORATORIES - X10(9)/L [facility] Monocytes 0.30 0.30 - [facility] 0.90 LABORATORIES - X10(9)/L [facility] Specimen Anatomical Collection Method Collection Time Receive d Time (Source) Location / / Volume Laterality 02/28/2017 2:06 PM 7 2:06 CDT PM CDT Angelic Murphy M.D. LAB BLOOD ADD-ON Performing Organization Address City/[facility]/RUST Code Phon e Number [facility] LABORATORIES - [address] [place] [address] [facility] BUN (Blood Urea Nitrogen) (02/28/2017 2:06 PM CDT) P athologist Signature BUN (Blood 11 6 - 21 [facility] Urea MG/DL LABORATORIES - Nitrogen), S [facility] Specimen Anatomical Collection Method Collection Time Receive d Time (Source) Location / / Volume Laterality 02/28/2017 2:06 PM 7 2:06 CDT PM CDT Angelic Murphy M.D. LAB BLOOD ADD-ON Performing Organization Address City/[facility]/ZIP Code Phon e Number [facility] LABORATORIES - [address] [place] [address] [facility] Potassium (02/28/2017 2:06 PM CDT) P athologist Signature Potassium, S 4.3 3.6 - 5.2 [facility] MMOL/L LABORATORIES - [facility] Specimen Anatomical Collection Method Collection Time Receive d Time (Source) Location / / Volume Laterality 02/28/2017 2:06 PM 7 2:06 CDT PM CDT Angelic Murphy M.D. LAB BLOOD ADD-ON Performing Organization Address City/State/ZIP Code Phon e Number [facility] LABORATORIES - [address] [address] [facility] Creatinine with Estimated GFR (MDRD) (02/28/2017 2:06 PM CDT) Analysis Performed At Patho logist Time Signature eGFR-Black/Afri >60 >60 [facility] can [place] ML/MIN/BSA LABORATORIES - [facility] Creatinine 0.7 0.6 - 1.1 [facility] MG/DL LABORATORIES - [facility] eGFR >60 >60 [facility] Non-Black/Afric ML/MIN/BSA LABORATORIES - an [place] [facility] Specimen Anatomical Collection Method Collection Time Receive d Time (Source) Location / / Volume Laterality 02/28/2017 2:06 PM 7 2:06 CDT PM CDT Angelic Murphy M.D. LAB BLOOD ADD-ON Performing Organization Address City/State/ZIP Code Phon e Number [facility] LABORATORIES - [address] [address] [facility] Lipase (02/28/2017 2:06 PM CDT) P athologist Signature Lipase, S 19 10 - 73 U/L [facility] Specimen Anatomical Collection Method Collection Time Receive d Time (Source) Location / / Volume Laterality 02/28/2017 2:06 PM 7 2:06 CDT PM CDT Angelic Murphy M.D. LAB BLOOD ADD-ON Performing Organization Address City/State/ZIP Code Phon e Number [facility] LABORATORIES - [address] [address] [facility] [address] Abdomen Pelvis with IV Contrast (02/27/2017 11:12 PM CDT) Anatomical Region Laterality Modality Abdomen, Pelvis N/A Computed Tomography Specimen (Source) Anatomical Collection Method Collection Time Re ceived Time Location / / Volume Laterality 02/27/2017 11:12 PM CDT Impressions 02/28/2017 5:58 AM CDT 1. Improving colitis. 2. 3 cm left ovarian cyst, presumably ph ysiologic. FINDINGS: Diffuse colonic wall thickening and mura l enhancement of the colon has improved since 02/11/2017, with residual inflammation primarily involving the ascending and transverse colon. No intraperitoneal free air. No loculated fluid collections. Fr ee fluid in the pelvis has resolved. Moderate amount of stool throughout the colon. No bowel obstruction. New 3 cm left ovarian cyst is presumably physiologic. Li armaan, spleen, kidneys, pancreas, and adre nal glands are negative. Umbilical instrumentation. Electronically signed by: ?? Emily Blankenship MD [phone] 27-Feb-2017 23:34 I have reviewed the films/images and agr ee with the above interpretation. Electronically signed by: ?? Todd Nascimento MD. [phone] 28-Feb-2017 05:58 Narrative 02/28/2017 5:58 AM CDT 27-Feb-2017 23:12:00 ??Exam: CT ABDOMEN w & PELVIS w Indications: ed ctr 5/ct a/p, abdominal pain ORIGINAL REPORT - 27-Feb-2017 23:34:00 EXAM: ??CT scan of the Abdomen and Pelvi s with IV contrast COMPARISON: ??CT abdomen/pelvis 02/11/2017 Procedure Note Noble Nascimento M.D. - 02/05/2018Forma tting of this note might be different from the original. 27-Feb-2017 23:12:00 Exam: CT ABDOMEN w & PELVIS w Indications: ed ctr 5/ct a/p, abdominal pain ORIGINAL REPORT - 27-Feb-2017 23:34:00 EXAM: CT scan of the Abdomen and Pelvis with IV contrast COMPARISON: CT abdomen/pelvis 02/11/2017 IMPRESSION: 1. Improving colitis. 2. 3 cm left ovarian cyst, presumably ph ysiologic. FINDINGS: Diffuse colonic wall thickening and mura l enhancement of the colon has improved since 02/11/2017, with residual inflammation primarily involving the ascending and transverse colon. No intraperitoneal free air. No loculated fluid collections. Free fluid in the pelvis has resolved. Moderate amount of stool throughout the colon. No bowel obstruction. New 3 cm left ovarian cyst is presumably physiologic. Liver, spleen, kidneys, pancreas, and adrenal glands are negativ e. Umbilical instrumentation. Electronically signed by: Emily Blankenship MD [phone] 27-Feb-2017 23:34 I have reviewed the films/images and agr ee with the above interpretation. Electronically signed by: Todd Nascimento MD. [phone] 28-Feb-2017 05:58 Alex Rendon M.D. IMG CT PROCEDURES Microbiology Reports (02/27/2017 10:28 PM CDT) Specimen Anatomical Collection Method Collection Time Receive d Time (Source) Location / / Volume Laterality 02/27/2017 10:28 02/27/2017 PM CDT 10:29 PM CDT Narrative [facility] - 03/04/2017 11:02 PM CDT 27-FEB-2017 BLOOD, ? SoftOrd# [id number] ?(Ordered 27-FEB-2017; Collec alicia 27-FEB-2017 22:28; Received 27-FEB-2017 22:51) ?[facility] ?BACTERIA/TIMMY CULTURE, BLOOD ? (Reported 04-MAR-2017 23:02) FINAL ?No growth after 5 days of in cubation. Procedure Note 03/28/2018 27-FEB-2017 BLOOD, SoftOrd# [id number] (Ordered 27-FEB-2017; Collected 2016 22:28; Received 27-FEB-2017 22:51) [facility] BACTERIA/TIMMY CULTURE, BLOOD (Repor alicia 04-MAR-2017 23:02) FINAL No growth after 5 days of incubation. Alex Rendon M.D. LAB MICROBIOLOGY - GENERAL O RDERABLES Performing Organization Address City/State/ZIP Code Phon e Number [facility] - [address] [place] [address] [facility] Microbiology Reports (02/27/2017 10:24 PM CDT) Specimen Anatomical Collection Method Collection Time Receive d Time (Source) Location / / Volume Laterality 02/27/2017 10:24 02/27/2017 PM CDT 10:24 PM CDT Narrative [facility] - 03/04/2017 11:02 PM CDT 27-FEB-2017 BLOOD, ? SoftOrd# [id number] ?(Ordered 27-FEB-2017; Collec alicia 27-FEB-2017 22:24; Received 27-FEB-2017 22:52) ?[facility] ?BACTERIA/TIMMY CULTURE, BLOOD ? (Reported 04-MAR-2017 23:02) FINAL ?No growth after 5 days of in cubation. Procedure Note 03/28/2018 27-FEB-2017 BLOOD, SoftOrd# [id number] (Ordered 27-FEB-2017; Collected 2016 22:24; Received 27-FEB-2017 22:52) [facility] BACTERIA/TIMMY CULTURE, BLOOD (Repor alicia 04-MAR-2017 23:02) FINAL No growth after 5 days of incubation. Alex Rendon M.D. LAB MICROBIOLOGY - GENERAL O GILMARERAROCIO Performing Organization Address City/State/ZIP Code Phon e Number [facility] - [address] [place], [place] [address] [facility] (ABNORMAL) BMP (Basic Metabolic Panel) (02/27/2017 8:56 PM CDT) [facility] gist Method Time Signature Sodium, P 137 135 - 145 [facility] MMOL/L LABORATORIES - [facility] Potassium, P 4.1 3.6 - 5.2 [facility] MMOL/L LAB[facility]ATORIES - [facility] Chloride, S 98 98 - 107 [facility] MMOL/L LAB[facility]ATORIES - [facility] Creatinine 0.7 0.6 - 1.1 [facility] MG/DL LABORATORIES - [facility] BUN (Blood Urea 13 6 - 21 [facility] Nitrogen), S MG/DL LAB[facility]ATORIES - [facility] HX Bicarbonate, 26 22 - 29 [facility] P/S MMOL/L LAB[facility]ATORIES - [facility] Glucose, S 171 (H) 70 - 140 [facility] MG/DL LAB[facility]ATORIES - [facility] Anion Gap 13 7 - 15 [facility]ORATORIES - [facility] eGFR >60 >60 [facility] Non-Black/Afric ML/MIN/BS LABORATORIES - [place] A [facility] eGFR-Black/Afri >60 >60 [facility] can [place] ML/MIN/BS LABORATORIES - [facility] Specimen Anatomical Collection Method Collection Time Receive d Time (Source) Location / / Volume Laterality 02/27/2017 8:56 PM 7 8:56 CDT PM CDT Alex Rendon M.D. LAB BLOOD ADD-ON Performing Organization Address City/State/ZIP Code Phon e Number [facility] LABORATORIES - [address] [place] [address] [facility] Bilirubin, Total (02/27/2017 8:56 PM CDT) athologist Signature Bilirubin, 0.3 <=1.2 [facility] Total, P MG/DL [facility] Specimen Anatomical Collection Method Collection Time Receive d Time (Source) Location / / Volume Laterality 02/27/2017 8:56 PM 7 8:56 CDT PM CDT Alex Rendon M.D. LAB BLOOD ADD-ON Performing Organization Address City/[facility]/RUST Code Phon e Number [facility] LABORATORIES - [address] [place] [address] [facility] Alkaline Phosphatase (02/27/2017 8:56 PM CDT) athologist Signature Alkaline 58 52 - 144 [facility] Phosphatase, S U/L LABORATORIES - [facility] Specimen Anatomical Collection Method Collection Time Receive d Time (Source) Location / / Volume Laterality 02/27/2017 8:56 PM 7 8:56 CDT PM CDT Alex Rendon M.D. LAB BLOOD ADD-ON Performing Organization Address City/State/ZIP Code Phon e Number [facility] LABORATORIES - [address], [place] [address] [facility] Lactate (02/27/2017 8:56 PM CDT) athologist Signature Lactate, P 1.6 0.6 - 2.3 [facility] MMOL/L [facility] Specimen Anatomical Collection Method Collection Time Receive d Time (Source) Location / / Volume Laterality 02/27/2017 8:56 PM 7 8:56 CDT PM CDT Alex Rendon M.D. LAB BLOOD NON ADD-ON Performing Organization Address City/[facility]/ZIP Code Phon e Number [facility] LABORATORIES - [address], [place] [address] [facility] Bilirubin, Direct (02/27/2017 8:56 PM CDT) athologist Signature Bilirubin, <0.1 0.0 - 0.3 [facility] Direct, P MG/DL [facility] Specimen Anatomical Collection Method Collection Time Receive d Time (Source) Location / / Volume Laterality 02/27/2017 8:56 PM 7 8:56 CDT PM CDT Alex Rendon M.D. LAB BLOOD ADD-ON Performing Organization Address City/State/ZIP Code Phon e Number [facility] LABORATORIES - [address], [place] [address] [facility] Lipase (02/27/2017 8:56 PM CDT) athologist Signature Lipase, S 23 10 - 73 U/L [facility] Specimen Anatomical Collection Method Collection Time Receive d Time (Source) Location / / Volume Laterality 02/27/2017 8:56 PM 7 8:56 CDT PM CDT Alex Rendon M.D. LAB BLOOD ADD-ON Performing Organization Address City/State/ZIP Code Phon e Number [facility] LABORATORIES - [address], [place] [address] [facility] AST (Aspartate Aminotransferase) (02/27/2017 8:56 PM CDT) [facility] [employer] Method Time Signature Aspartate 13 8 - 43 [facility] Aminotransferase U/L LABORATORIES - (AST), P [facility] Specimen Anatomical Collection Method Collection Time Receive d Time (Source) Location / / Volume Laterality 02/27/2017 8:56 PM 7 8:56 CDT PM CDT Alex Rendon M.D. LAB BLOOD ADD-ON Performing Organization Address City/[facility]/ZIP Code Phon e Number [facility] LABORATORIES - [address] [place], [place] [address] [facility] hCG (Human Chorionic Gonadotropin), Quantitative, (02/27/2017 8:56 PM CDT) [facility] [employer] Method Time Signature HCG, <0.5 <5.0 [facility] Quantitative, Negative; LABORATORIES - , S 5.0-25.0 [facility] e; >25.0 Positive IU/L Specimen Anatomical Collection Method Collection Time Receive d Time (Source) Location / / Volume Laterality 02/27/2017 8:56 PM 7 8:56 CDT PM CDT Alex Rendon M.D. LAB BLOOD ADD-ON Performing Organization Address City/[facility]/ZIP Code Phon e Number [facility] LABORATORIES - [address] [place] [address] [facility] (ABNORMAL) CBC with Differential (02/27/2017 8:56 PM CDT) [facility] [employer] Method Time Signature Hemoglobin 11.1 (L) 12.0 - [facility] 15.5 G/DL LABORATORIES - [facility] Hematocrit 35.2 34.9 - [facility] 44.5 % LABORATORIES - [facility] Lymphocytes 2.07 0.90 - [facility] 2.90 LABORATORIES - X10(9)/L [facility] Monocytes 0.46 0.30 - [facility] 0.90 LABORATORIES - X10(9)/L [facility] Erythrocytes 3.98 3.90 - [facility] 5.03 LABORATORIES - X10(12)/L [facility] MCV 88.4 81.6 - [facility] 98.3 [place] LABORATORIES - [facility] RBC Distrib 16.3 (H) 11.9 - [facility] Width 15.5 % LABORATORIES - [facility] Platelet Count 438 150 - 450 [facility] X10(9)/L LAB[facility]ATORIES - [facility] Leukocytes 10.0 3.5 - [facility] 10.5 LABORATORIES - X10(9)/L [facility] Neutrophils 7.28 (H) 1.70 - [facility] 7.00 LABORATORIES - X10(9)/L [facility] Comment: Rechecked Eosinophils 0.01 (L) 0.05 - 0.50 X10(9)/L [facility] LABORATORIES - [facility] Basophils 0.06 0.00 - 0.30 X10(9)/L [facility] LABORATORIES - [facility] Specimen Anatomical Collection Method Collection Time Receive d Time (Source) Location / / Volume Laterality 02/27/2017 8:56 PM 7 8:56 CDT PM CDT Alex Rendon M.D. LAB BLOOD ADD-ON Performing Organization Address City/State/ZIP Code Phon e Number [facility] LABORATORIES - [address] [place] [address] [facility] (ABNORMAL) Glucose, POCT (02/27/2017 8:54 PM CDT) [facility] gist Method Time Signature Glucose, POCT, 169 (H) 70 - 140 [facility] B MG/DL [facility] - [facility] Sample Site, Venstick [facility] Blood Gas, LABORATORIES - POCT [facility] Specimen Anatomical Collection Method Collection Time Receive d Time (Source) Location / / Volume Laterality 02/27/2017 8:54 PM 7 8:54 CDT PM CDT Historical Provider LAB POCT ORDERABLES-MANUAL Performing Organization Address City/[facility]/ZIP Code Phon e Number [facility]IES - [address] [id number] [facility] documented in this encounter Visit Diagnoses Not on filedocumented in this encounter
--- OUTSIDE RECORDS SUMMARY | 2022-08-31 12:42 | XMS_ITS | Encounter Summary ---
:1995 Author Organization [facility] Address [address] [place] [address] Care Team Providers Name Role Phone Unavailable Primary Care Provider Unavailable Encounter Details Date Type Department Care Team Description 02/28/2017 - Hospital Encounter HX RST INFUSION [place], 03/07/2017 THERAPY Francine Otero R.N. [address] [place] [id number] Social History Tobacco Use Types Packs/Day Years [...] Sign Reading Time Taken Comments Blood Pressure 89/47 02/28/2017 3:45 PM CDT Pulse 75 02/28/2017 3:45 PM CDT Temperature - - Respiratory Rate 18 02/28/2017 3:45 PM CDT Oxygen Saturation - - Inhaled Oxygen Concentration - - Weight - - Height - - Body Mass Index - - documented in this encounter Medications at Time of Discharge Medication Sig Dispensed Refills Start Date End Date albuterol (for_PROVENTIL Inhale 1-2 puffs. 0 12/201607/29/2020 HFA,VENTOLIN HFA) 90 mcg/actuation inhaler ETHINYL [...] tablet predniSONE Take 4 tablets (40 0 02/10/2017 06/10/ 2018 (for_DELTASONE) 10 mg mg) once daily for [...]
--- OUTSIDE RECORDS SUMMARY | 2022-08-31 12:42 | XMS_ITS | Encounter Summary ---
:1995 Author Organization [facility] Address [address] [place] [address] Care Team Providers Name Role Phone Unavailable Primary Care Provider Unavailable Encounter Details Date Type Department Care Team Description 05/30/2017 Hospital Encounter HX [facility] Shazia Denny M .D., M.P.H. [address] [place], [place] [phone] (Wo rk) Social History [...] Concentration - - Weight - - Height 165 cm (5' 4.96) 05/30/2017 11:42 AM CDT Body Mass Index - - documented in [...] encounter Progress Notes Shazia Berrios M.D. - 05/30/2017 11:41 AM CDT [id number] CHIEF COMPLAINT/REASON FOR VISIT Return to work discussion. HISTORY OF PRESENT ILLNESS Ms. Dana Caraballo is a 22-year-old female here for recheck. She was last seen a week ago and was advised to return to work 4-hour shift. Plan was for her to work 4 hours per shift 5 days a week and then return to see how she handles the increased physical activities. Unfortunately she only worked 1 shift. She is scheduled to work the next 3 to 4 days. IMPRESSION/REPORT/PLAN Return to work discussion. Advised patient to work those next 3 days with a plan to be seen back in a couple weeks to see how she tolerated the 4 hour schedule. Will see her back in a couple weeks. If she tolerated the 4 hours, will likely increase her hours. No charge visit. Shazia Berrios M.D./robert Electronically Signed By: SHAZIA BERRIOS MD On: 05/31/2017 12:49 PM Source: [facility] MHSDOLBEYNONRADSYS Document Id: [id number] documented in this encounter Miscellaneous Notes Miscellaneous - Shazia Berrios M.D. - 05/30/2017 12:05 PM CDT Ambulatory Discharge Medication List [facility] [address], [address] [place], [place] [phone] Visit Information Name: DANA CARABALLO [facility] Number: [id number] Current Date: 05/30/2017 12:05:59 Attending Provider: SHAZIA BERRIOS MD Primary Care Provider: PCP, KEVIN DANA CARABALLO has been given the following list of medications: Your Medications It is important to take your medications as directed. Use a pill box or chart to help remind you to take your medications. Please let your doctor or nurse know if you have problems taking your medications. Medication/Strength How to Take Indications/Special Instructions/Comments/Notes for Patient Medication Changes/Routing albuterol (albuterol 90 mcg/inh inhalation aerosol) 2 puff(s), Inhalation, four times a day as needed for Shortness of breath / Wheezing calcium-vitamin D (Calcium 500+D) 1 Tablet(s), two times a day cholecalciferol (Vitamin D3 1000 intl units oral tablet) 1 Tablet(s), Oral, once a day drospirenone-ethinyl estradiol (Loryna oral tablet) 1 Tablet(s), Oral, once a day menses ibuprofen (ibuprofen 200 mg oral tablet) 3 Tablet(s), Oral, four times a day as needed for Pain inFLIXimab (Remicade) 5 mg/kg, Intravenous, mometasone-formoterol (Dulera 200 mcg-5 mcg/inh inhalation aerosol) 2 puff(s), Inhalation, two timesa day asthma rizatriptan (rizatriptan 10 mg oral tablet) 10 mg, Oral, as directed as needed for Migraine headache Stop Taking the Following Medications: Medication list as of 05-30-17 12:05 Attention: If you have any medications at home that are not on this list, DO NOT take them until youcontact your provider for clarification. Give a copy of your medication list to your primary care provider. Update your medication list any time medications or doses are changed and carry your medication list at all times in case of emergency. Electronically Signed By: SHAZIA BERRIOS MD Signed On:30-MAY-2017 12:05:34 Additional Information: Source: [facility] POWERCHART Document Id: [id number] Miscellaneous - Shazia Berrios M.D. - 05/30/2017 12:05 PM CDT Ambulatory Patient Summary [facility] [address], [address] [place], [place] [phone] Visit Information Name: DANA CARABALLO [facility] Number: [id number] Current Date: 05/30/2017 12:05:59 Physicians Attending Provider: SHAZIA BERRIOS MD Primary Care Provider: PCP, KEVIN DANA CARABALLO has been given the following list of follow-up instructions, medication list,and patient education materials: Follow-up Instructions Your Medications Here is a list of your medications. It is important to take your medications as directed. Use a pillbox or chart to help remind you to take your medications. Please let your doctor or nurse know if you have problems taking your medications. Medication/Strength How to Take Indications/Special Instructions/Comments/Notes for Patient Medication Changes/Routing albuterol (albuterol 90 mcg/inh inhalation aerosol) 2 puff(s), Inhalation, four times a day as needed for Shortness of breath / Wheezing calcium-vitamin D (Calcium 500+D) 1 Tablet(s), two times a day cholecalciferol (Vitamin D3 1000 intl units oral tablet) 1 Tablet(s), Oral, once a day drospirenone-ethinyl estradiol (Loryna oral tablet) 1 Tablet(s), Oral, once a day menses ibuprofen (ibuprofen 200 mg oral tablet) 3 Tablet(s), Oral, four times a day as needed for Pain inFLIXimab (Remicade) 5 mg/kg, Intravenous, mometasone-formoterol (Dulera 200 mcg-5 mcg/inh inhalation aerosol) 2 puff(s), Inhalation, two timesa day asthma rizatriptan (rizatriptan 10 mg oral tablet) 10 mg, Oral, as directed as needed for Migraine headache Stop Taking the Following Medications: Medication list as of 05-30-17 12:05 Attention: If you have any medications at home that are not on this list, DO NOT take them until youcontact your provider for clarification. Give a copy of your medication list to your primary care provider. Update your medication list any time medications or doses are changed and carry your medication list at all times in case of emergency. Electronically Signed By: SHAZIA BERRIOS MD Signed On:30-MAY-2017 12:05:34 Your Allergies & Intolerances Substance Reaction Symptoms Category Comments codeine vomiting Drug Your Problem List Problem Status Onset Comments Asthma, Unspecified Active Asthma NOS (493.90) Active Migraine Headache (HUBBARD) NOS Active Crohn's Disease NOS Active 05/24/17 Per External Records Your Upcoming Appointments Date Time Location Provider 06/13/2017 10:45 [facility]HW Shazia Berrios MD 07/19/2017 10:00 [facility] [employer] [facility] Chair 1 Attention: Contact your local Clinic if further appointment detail needed. Consider Using Patient Online Services Patient Online Services is a secure online and Mobile application that lets you: ?? View lab and test results ?? View portions of your medical record including clinical notes, immunizations and discharge summaries ?? Request an appointment or medication refill ?? Review your appointment schedule ?? Send secure messages to your care team Its easy to create an account if you dont have one. Go to [email or web address] and click on Create Your Account. Then, follow the directions to complete the online form. Youll be asked for your [facility] number which you can find at the top of this document. Your Goals/Additional instructions: Source: [facility] POWERCHART Document Id: [id number] documented in this encounter Plan of Treatment Not on filedocumented as of this encounter Visit Diagnoses Not on filedocumented in this encounter
--- OUTSIDE RECORDS SUMMARY | 2022-08-31 12:42 | XMS_ITS | Encounter Summary ---
:1995 Author Organization [facility] Address [address] [place] [address] Care Team Providers Name Role Phone Unavailable Primary Care Provider Unavailable Encounter Details Date Type Department Care Team Description 04/18/2017 Hospital Encounter HX [facility] Shazia Denny M .D., M.P.H. [address] [place], [place] [phone] (Wo rk) Social History [...] Sign Reading Time Taken Comments Blood Pressure 94/54 04/18/2017 10:43 AM CDT Pulse 80 04/18/2017 10:43 AM CDT Temperature - - Respiratory Rate 20 04/18/2017 10:43 AM CDT Oxygen Saturation - - Inhaled Oxygen Concentration - - Weight 63.1 kg (139 lb 1.8 oz) 04/18/2017 10:43 AM CDT Height - - Body Mass Index 23.18 02/11/2017 5:48 PM CDT documented in this [...] encounter Progress Notes Shazia Berrios M.D. - 04/18/2017 10:24 AM CDT [id number] CHIEF COMPLAINT/REASON FOR VISIT Return to work discussion. Employer: [employer]. 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 HISTORY OF PRESENT ILLNESS Ms Dana Caraballo is a 22-year-old female here for her return to work discussion. She has been off work for the past 2 months due to newly diagnosed Crohn disease which she has been seen by Dr. Murphy a supervisor cutting and sewing room at the [facility] in [place] and is currently taking Remicade injection every [...] discuss the return to work process. Mrs. Caraballo is here today for recheck. Since her last visit, she continues to feel extremely fatigued. She continues to have loose stool averaging about 3 to 4 stools a day. She was recently seen by her primary care physician who advised her to consider reducing her FTE to 0.5 versus 1.0. She has anappointment to see the GI specialist on May 10 in [place]. Today, she reports extreme fatigue. She tried to do some basic ambulation at home and is finding it very difficult to do so. At times, she is able to walk up to 20 minutes and then feeling extremely fatigued and winded. She does not thinkshe is ready to return to work at this point. She denied any other concern today. SYSTEMS REVIEW GENERAL: No fever, no chills but positive for fatigue and weakness. HEART: No chest pain, no chest pressure. LUNGS: No cough, no sneezing, no hemoptysis. ABDOMEN: As above. NEUROLOGICAL: No numbness, tingling. EXTREMITIES: No calf pain, no edema noted. MEDICATIONS Remicade ever 8 weeks injection and Imuran dose unknown. ALLERGIES Codeine. 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 No other job reported. She has been off work since February 2017 due to her newly diagnosed Crohn disease. PAST MEDICAL/SURGICAL HISTORY Significant for migraine headaches and Crohn disease. PHYSICAL EXAMINATION GENERAL: She is alert, oriented, in no acute distress. VITALS: Reviewed and stable. Rest of physical examination was deferred. IMPRESSION/REPORT/PLAN 1. Return to work discussion. 2. Newly diagnosed Crohn disease, currently adjusting her medications. I explained to the patient that there is no patient/provider relationship for this evaluation and that this evaluation is conducted at the request of her employer to determine her ability to perform the essential functions of her job. I did review her job description one more time as an ER hospital technician.I also reviewed the GI specialist's record from [place] and her primary care release note from [facility]. I explained to the patient that her current symptoms is of little concern to return her to the ER function at this point. She continues to have multiple loose stools a day and is suffering with fatigue. I think it would be reasonable at this point to wait until her followup appointment with the GI specialist before making any further determination about when she can return to work.She understands to discuss that option with the GI specialist as well. We also discussed the recommendation from her primary care physician to decrease to 0.5 FTE. She is also unclear. She was not sureif she understood the recommendation but was hoping for some short term hours restriction. After further discussion, patient will be willing to change her overall FTE to 0.5. I did explain the pros andcons of each option and patient is willing at this point to proceed. I explained to her that at thispoint She is not ready to return to work anyway and then I will see her back in about 3 to 4 weeks for recheck, sooner if needed. All questions answered to the best of my ability. This is a 20-minute visit with 15 minutes for counseling, coordination of care, discussing followup plan, and answering her questions and completing the return to work paperwork. Shazia Berrios M.D./robert Electronically Signed By: SHAZIA BERRIOS MD On: 04/22/2017 09:02 AM Source: [facility] MHSDOLBEYNONRADSYS Document Id: [id number] documented in this encounter Miscellaneous Notes Miscellaneous - Shazia Berrios M.D. - 04/18/2017 1:35 PM CDT Ambulatory Patient Summary [address] [place], [place] [phone] Visit Information Name: DANA CARABALLO [facility] Number: [id number] Current Date: 04/18/2017 13:35:13 Physicians Attending Provider: SHAZIA BERRIOS MD Primary Care Provider: PCPKEVIN DANA CARABALLO has been given the following [...] 1 Tablet(s), Oral, once a day menses *ibuprofen (ibuprofen 200 mg oral tablet) 3 Tablet(s), Oral, four times a day as needed for Pain mometasone-formoterol (Dulera 200 mcg-5 mcg/inh inhalation aerosol) 2 puff(s), Inhalation, two timesa day asthma *rizatriptan (rizatriptan 10 mg oral tablet) 10 mg, Oral, as directed as needed for Migraine headache * You have let us know that you are not taking this medication as listed. Please talk with your primary care provider or the health care provider who prescribed the medication as soon as possible. Stop Taking the Following Medications: Medication list as of 04-18-17 13:35 Attention: If you have any medications at [...] Electronically Signed By: SHAZIA BERRIOS MD Signed On:18-APR-2017 13:35:08 Your Allergies & Intolerances Substance Reaction Symptoms Category Comments codeine vomiting Drug Your Problem List Problem Status Onset Comments Asthma, Unspecified Active Asthma NOS (493.90) Active Migraine Headache (HUBBARD) NOS Active Your Upcoming Appointments Date Time Location Provider 05/16/2017 10:45 [facility] JUAN LUISW Shazia Berrios MD 05/24/2017 10:00 [facility] Chair 1 Attention: Contact your local [...] if you dont have one. Go to [email or web address] and click on Create Your Account. Then, follow the directions to complete the online form. Youll be asked for your [facility] number which you can find at the top of this document. Your Goals/Additional instructions: Source: [facility] POWERCHART Document Id: [id number] Miscellaneous - Shazia Berrios M.D. - 04/18/2017 1:35 PM CDT Ambulatory Discharge Medication List [facility] [address] [facility], [address] [place], [place] [phone] Visit Information Name: DANA CARABALLO [facility] Number: [id number] Current Date: 04/18/2017 13:35:13 Attending Provider: SHAZIA BERRIOS MD Primary Care [...] 1 Tablet(s), Oral, once a day menses *ibuprofen (ibuprofen 200 mg oral tablet) 3 Tablet(s), Oral, four times a day as needed for Pain mometasone-formoterol (Dulera 200 mcg-5 mcg/inh inhalation aerosol) 2 puff(s), Inhalation, two timesa day asthma *rizatriptan (rizatriptan 10 mg oral tablet) 10 mg, Oral, as directed as needed for Migraine headache * You have let us know that you are not taking this medication as listed. Please talk with your primary care provider or the health care provider who prescribed the medication as soon as possible. Stop Taking the Following Medications: Medication list as of 04-18-17 13:35 Attention: If you have any medications at [...] Electronically Signed By: SHAZIA BERRIOS MD Signed On:18-APR-2017 13:35:08 Additional Information: Source: [facility] POWERCHART Document Id: [id number] Miscellaneous - Tracy Card L.P.N. 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 Intake/History Adult Conveyor System Operator Intake/History Entered On: 04/18/2017 10:45 CDT Performed On: 04/18/2017 10:43 CDT by TRACY CARD LPN Intake Chief Complaint : return to work [facility]- Peripheral Pulse Rate : 80 /min Respiratory Rate : 20 /min Heart Rhythm : Regular Systolic Blood Pressure : 94 mmHg Diastolic Blood Pressure : 54 mmHg NIBP Mean : 67 mmHg BP Location : Right upper extremity Blood Pressure Cuff Size : Regular Actual Weight : 63.1 kg(Converted to: 139 lb 2 oz) Weight Source : Standing scale Dosing Weight Clinic : 63.1 kg TRACY CARD LPN - 04/18/2017 10:43 CDT General Info Information Given By : Patient Languages : Ecuadorean Is Patient Female and 13-50 no hysterectomy : Yes Status : Patient denies Are you ? : No TRACY CARD LPN - 04/18/2017 10:43 CDT Subjective Pain Symptoms : Yes TRACY CARD LPN - 04/18/2017 10:43 CDT Pain Scale Pain Scale Verbal 0-10 : Open TRACY CARD MANAGEMENT AIDE - 04/18/2017 10:43 CDT Pain Pain Assessment Grid Pain 1 Location : Abdomen Laterality : Bilateral Intensity : 3 TRACY CARD LPN - 04/18/2017 10:43 CDT Dependent Habits Exposure to Tobacco Smoke : Care provider denies smoking in home Smoking Status : Never smoker Tobacco 2A : No Tobacco Use/Currently Using : No Tobacco Use/Last 30 Days : No Tobacco Use/Last 12 months : No TRACY CARD LPN - 04/18/2017 10:43 CDT Caffeine Use Grid Caffeine Use : Current Type : Soft drinks Frequency : Daily Amount : 1 serving TRACY CARD MANAGEMENT AIDE - 04/18/2017 10:43 CDT Recreational Drug Use Grid Drug Use : None TRACY CARD LPN - 04/18/2017 10:43 CDT [facility] Document Id: [id number]!46 documented in this encounter Plan of Treatment Not on filedocumented as of this encounter Visit Diagnoses Not on filedocumented in this encounter
--- OUTSIDE RECORDS SUMMARY | 2022-08-31 12:42 | XMS_ITS | Encounter Summary ---
:1995 Author Organization [facility] Address [address] [place] [address] Care Team Providers Name Role Phone Unavailable Primary Care Provider Unavailable Encounter Details Date Type Department Care Team Description 04/02/2017 Hospital Encounter HX [facility] Shazia Denny M .D., M.P.H. [address] [place], [place] [phone] (Wo rk) Social History [...] Sign Reading Time Taken Comments Blood Pressure 110/62 04/02/2017 2:01 PM CDT Pulse 76 04/02/2017 2:01 PM CDT Temperature - - Respiratory Rate 16 04/02/2017 2:01 PM CDT Oxygen Saturation - - Inhaled Oxygen Concentration - - Weight 63.2 kg (139 lb 5.3 oz) 04/02/2017 2:01 PM CDT Height - - Body Mass Index 23.21 02/11/2017 5:48 PM CDT documented in this [...] Admin Instructions. documented as of this encounter Consult Notes Shazia Berrios M.D. - 04/02/2017 1:59 PM CDT [id number] CHIEF COMPLAINT/REASON FOR VISIT Return to work discussion. 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 HISTORY OF PRESENT ILLNESS Ms Dana Caraballo is a 22-year-old female here for her return to work discussion. She has been off work for the past 2 months due to newly diagnosed Crohn disease which she has been seen by Dr. Murphy a sex worker or escort at the [facility] in [place] and is currently taking Remicade injection every [...] to discuss the return to work process. Today Mrs. Caraballo looks extremely tired. She stated that she continued to have significant abdominal discomfort and continued have nausea from the medication. The patient does not think she is ready to return to work at this point. She has an appointment scheduled to see the GI specialist in April. She denied any other concern today. SYSTEMS REVIEW GENERAL: No fever, no chills but positive for fatigue and weakness. HEART: No chest pain, no chest pressure. LUNGS: No cough, no sneezing, no hemoptysis. ABDOMEN: As above. NEUROLOGICAL: No numbness, tingling. EXTREMITIES: No calf pain, no edema noted. MEDICATIONS Remicade ever 8 weeks injection and Imuran dose unknown. ALLERGIES Codeine. SOCIAL HISTORY She does not smoke. No alcohol. No street drug use. 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 No other job reported. She has been off work since February 2017 due to her newly diagnosed Crohn disease. PAST MEDICAL/SURGICAL HISTORY Significant for migraine headaches and Crohn disease. PHYSICAL EXAMINATION GENERAL: She is alert, oriented, in no acute distress. VITALS: Reviewed and stable. HEART: Regular rate and rhythm. LUNGS: Clear to auscultation bilaterally. ABDOMEN: Soft, diffusely tender on palpation. EXTREMITIES: Right calf pain noted. No left calf pain reported. HEENT: TM normal. Eyes normal. No tonsil enlargement. NECK: No cervical adenopathy noted. MUSCULOSKELETAL: Strength testing upper and lower extremities normal although patient looked weak during the testing. IMPRESSION/REPORT/PLAN 1. Return to work discussion. 2. Newly diagnosed Crohn disease. There is no patient provider relationship for this evaluation and that this evaluation is conducted at the request of her employer to determine her ability to perform the essential functions of her job. 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 Ms. Caraballo was recently diagnosed with Crohn diseaseand continued to adjust her medication at this point. She continues to have significant side effectsfrom the medication and appears weak due to inactivities for the past 2 months or so. Based on my evaluation today, in light of the nature of her work assignment, she is not to return to work in any capacity at this point. Patient will be seen by her primary care physician and she will benefit from any conditioning training through physical therapy. Patient stated that she planned to discuss that option with her regular physician. Patient will be seen back in a couple weeks for recheck, sooner if needed. I anticipate patient to being able to return to work in some capacity over the next couple weeks. We will likely return her to limited hours to see how she responds to increased work load. She hadmultiple questions that were answered to the best of my ability. This is a 30-minute visit 20 minutes for counseling, coordination of care, discussing followup plan,answering her questions and answering the return to work process questions. Shazia Berrios M.D./robert Electronically Signed By: SHAZIA BERRIOS MD On: 04/02/2017 03:56 PM Source: [facility] MHSDOLBEYNONRADSYS Document Id: [id number] documented in this encounter Miscellaneous Notes Miscellaneous - Shazia Berrios M.D. - 04/02/2017 2:40 PM CDT Ambulatory Patient Summary [facility] [address] [facility], [address] [place], [place] [id number] Visit Information Name: DANA CARABALLO [facility] Number: [id number] Current Date: 04/02/2017 14:40:42 Physicians Attending Provider: SHAZIA BERRIOS MD Primary [...] the Following Medications: Medication list as of 04-02-17 14:40 Attention: If you have any medications at [...] Electronically Signed By: SHAZIA BERRIOS MD Signed On:02-APR-2017 14:40:36 Your Allergies & Intolerances Substance Reaction Symptoms Category Comments codeine vomiting Drug Your Problem List Problem Status Onset Comments Asthma, Unspecified Active Asthma NOS (493.90) Active Migraine Headache (HUBBARD) NOS Active Your Upcoming Appointments Date Time Location Provider 04/18/2017 10:25 [facility] Shazia Denny MD 05/24/2017 10:00 [facility] Chair 1 Attention: Contact your local Clinic [...] if you dont have one. Go to [email or web address] and click on Create Your Account. Then, follow the directions to complete the online form. Youll be asked for your [facility] number which you can find at the top of this document. Your Goals/Additional instructions: Source: [facility] POWERCHART Document Id: [id number] Miscellaneous - Shazia Berrios M.D. - 04/02/2017 2:40 PM CDT Ambulatory Discharge Medication List [facility] [address], [address] [place], [place] [phone] Visit Information Name: DANA CARABALLO [facility] Number: [id number] Current Date: 04/02/2017 14:40:41 Attending Provider: SHAZIA BERRIOS MD Primary Care [...] the Following Medications: Medication list as of 04-02-17 14:40 Attention: If you have any medications at [...] Electronically Signed By: SHAZIA BERRIOS MD Signed On:02-APR-2017 14:40:36 Additional Information: Source: [facility] POWERCHART Document Id: [id number] Miscellaneous - Tracy Card L.P.N. - 04/02/2017 2:01 PM CDT Adult Livestock Breeder Intake/History Adult Livestock Breeder Intake/History Entered On: 04/02/2017 14:05 CDT Performed On: 04/02/2017 14:01 CDT by TRACY CARD LPN Intake Chief Complaint : return to work [facility] Peripheral Pulse Rate : 76 /min Respiratory Rate : 16 /min Heart Rhythm : Regular Systolic Blood Pressure : 110 mmHg Diastolic Blood Pressure : 62 mmHg NIBP Mean : 78 mmHg BP Location : Right upper extremity Blood Pressure Cuff Size : Regular Actual Weight : 63.2 kg(Converted to: 139 lb 5 oz) Weight Source : Standing scale Dosing Weight Clinic : 63.2 kg TRACY CARD LPN - 04/02/2017 14:01 CDT General Info Information Given By : Patient Languages : Lao Is Patient Female and 13-50 no hysterectomy : Yes Status : Patient denies Are you ? : No TRACY CARD LPN - 04/02/2017 14:01 CDT Subjective Pain Symptoms : Yes TRACY CARD LPN 04/02/2017 14:01 CDT Pain Scale Pain Scale Verbal 0-10 : Open TRACY CARD LPN - 04/02/2017 14:01 CDT Pain Pain Assessment Grid Pain 1 Location : Abdomen Laterality : Left Intensity : 3 TRACY CARD LPN 04/02/2017 14:01 CDT Dependent Habits Exposure to Tobacco Smoke : Care provider denies smoking in home Smoking Status : Never smoker Tobacco 2A : No Tobacco Use/Currently Using : No Tobacco Use/Last 30 Days : No Tobacco Use/Last 12 months : No TRACY CARD LPN - 04/02/2017 14:01 CDT Caffeine Use Grid Caffeine Use : Current Type : Soft drinks Frequency : Daily Amount : 1 serving TRACY CARD LPN - 04/02/2017 14:01 CDT Recreational Drug Use Grid Drug Use : None TRACY CARD LPN - 04/02/2017 14:01 CDT Source: [facility] Access [employer] Document Id: [id number] CDT!46 documented in this encounter Plan of Treatment Not on filedocumented as of this encounter Visit Diagnoses Not on filedocumented in this encounter
--- OUTSIDE RECORDS SUMMARY | 2022-08-31 12:42 | XMS_ITS | Encounter Summary ---
:1995 Author Organization [facility] Address [address] [place] [address] Care Team Providers Name Role Phone Unavailable Primary Care Provider Unavailable Encounter Details Date Type Department Care Team Description 02/28/2017 - 03/07/2017 Hospital Encounter HX NO MAPPING Social History [...] Date albuterol (for_PROVENTIL Inhale 1-2 puffs. 0 0412/201607/29/2020 HFA,VENTOLIN HFA) 90 mcg/actuation inhaler ETHINYL Take [...]
--- OUTSIDE RECORDS SUMMARY | 2022-08-31 12:42 | XMS_ITS | Encounter Summary ---
:1995 Author Organization [facility] Address [address] [place] [address] Care Team Providers Name Role Phone Unavailable Primary Care Provider Unavailable Encounter Details Date Type Department Care Team Description 08/10/2017 Hospital Encounter [facility] ED Yamel Reis M .D. Social History Tobacco Use Types Packs/Day Years [...] PM CDT documented as of this encounter Discharge Summaries Jade Peres - 08/10/2017 12:40 AM CDT ED Discharge Instructions [facility] [address] [place] [address] Name: LAUREL CARABALLO Date of : 1995 12:00 AM Visit Date: 08/10/2017 12:07 AM [facility] Number: [id number] Address: [address] [place] [phone] Primary Care Provider: PCP, ELSEWHERE IMPORTANT: [facility] in [place] would like to thank you for allowing us to assist you with your healthcare needs. The following includes patient education materials and information regarding your injury/illness. Diagnosis: Pain Back Lumbar Follow-Up Instructions: With: Address: When: Occupational Health Within As Soon As Possible With: Address: When: ELSEWHERE PCP Within As Needed Your Upcoming Appointments: Date Time Location Provider No Appointments found Patient Education Materials: Back Pain [Acute Or Chronic] Back pain is usually caused by an injury to the muscles or ligaments of the spine. Sometimes the disks that separate each bone in the spine may bulge and cause pain by pressing on a nearby nerve. Back pain may also appear after a sudden twisting/bending force (such as in a car accident), after a simple awkward movement, or lifting something heavy with poor body positioning. In either case, muscle spasm is often present and adds to the pain. Acute back pain usually gets better in one to two weeks. Back pain related to disk disease, arthritis in the spinal joints or spinal stenosis (narrowing of the spinal canal) can become chronic and lastfor months or years. Unless you had a physical injury (for example, a car accident or fall) X-rays are usually not ordered for the initial evaluation of back pain. If pain continues and does not respond to medical treatment, x-rays and other tests may be performed at a later time. Home Care: You may need to stay in bed the first few days. But, as soon as possible, begin sitting or walking to avoid problems with prolonged bed rest (muscle weakness, worsening back stiffness and pain, blood clots in the legs). When in bed, try to find a position of comfort. A firm mattress is best. Try lying flat on your backwith pillows under your knees. You can also try lying on your side with your knees bent up towards your chest and a pillow between your knees. Avoid prolonged sitting. This puts more stress on the lower back than standing or walking. During the first two days after injury, apply an ICE PACK to the painful area for 20 minutes every 2-4 hours. This will reduce swelling and pain. HEAT (hot shower, hot bath or heating pad) works well for muscle spasm. You can start with ice, then switch to heat after two days. Some patients feel best alternating ice and heat treatments. Use the one method that feels the best to you. You may use acetaminophen (Tylenol) or ibuprofen (Motrin, Advil) to control pain, unless another pain medicine was prescribed. [NOTE: If you have chronic liver or kidney disease or ever had a stomach ulcer or GI bleeding, talk with your doctor before using these medicines.] Be aware of safe lifting methods and do not lift anything over 15 pounds until all the pain is gone. Follow Up with your doctor or this facility if your symptoms do not start to improve after one week. Physical therapy may be needed. [NOTE: If X-rays were taken, they will be reviewed by a radiologist. You will be notified of any newfindings that may affect your care.] Get Prompt Medical Attention if any of the following occur: ?? Pain becomes worse or spreads to your legs ?? Weakness or numbness in one or both legs ?? Loss of bowel or bladder control ?? Numbness in the groin or genital area ?? [id number] Johnathan Childs, [address] [place] [address], [place] [address]. All rights reserved. This information is not intended as a substitute for professional medical care. Always follow your healthcare professional's instructions. Back Safety for Health Care Workers Whether youre moving a patient, lifting a box of supplies, or pushing a cart or wheelchair, your back is always working. Use the tips below to help you reduce your risk of back injury. Reaching Reaching for records, files, or supplies, especially in high places, can strain your back: ?? Reach only as high as your shoulders. ?? Use a stool or stepladder if you need to get closer to the load. ?? Test the weight of the load by pushing up on a corner before lifting. If its too heavy, get help. Bending and Lifting When youre bending down to reach or lift, move your whole body to protect your back: ?? Bend your knees and hips, not your back. ?? Kneel down on 1 knee, if necessary. ?? Get as close to the object as you can, so you wont have to reach with your arms. ?? Keep the load close to your body. Hug it. ?? Tighten your stomach muscles to support your back when you lift. ?? Lift with your legs, not your back. ?? Maintain a wide base of support. Keep feet shoulder-width apart, or 1 foot slightly in front of the other. Pushing Pulling larger objects can be as hard on your back as lifting. Whenever possible, push instead: ?? Push with both arms, keeping your elbows bent. ?? Stay close to the load, without leaning forward. ?? Tighten your stomach muscles as you push. ?? [id number] [place] [address]. All rights reserved. This information is not intended as a substitute for professional medical care. Always follow your healthcare professional's instructions. Consider Using Patient Online Services Patient Online [...] if you dont have one. Go to [email or web address] and click on Create Your Account. Then, follow the directions to complete the online form. Youll be asked for your [facility] number which you can find at the top of this document. ED Tests and Procedures: Order Status Discharge Prescriptions & Home Medications: Medication/Strength Dose Route Frequency Indications/Special Instructions/Comments/Notes diazePAM (diazePAM 5 mg oral tablet) 5 mg Oral three times a day as needed for Anxiety for back spasm and pain adalimumab (Humira) 40 mg Subcutaneous once *inFLIXimab (Remicade) 5 mg/kg Intravenous calcium-vitamin D (Calcium 500+D) 1 tab(s) two times a day lvertaltcholecalciferol (Vitamin D3 1000 intl units oral tablet) 1,000 IntU Oral once a day *rizatriptan (rizatriptan 10 mg oral tablet) 10 mg Oral as directed as needed for Migraine headache *ibuprofen (ibuprofen 200 mg oral tablet) 600 mg Oral four times a day as needed for Pain *drospirenone-ethinyl estradiol (Loryna oral tablet) 1 tab(s) Oral once a day menses mometasone-formoterol (Dulera 200 mcg-5 mcg/inh inhalation aerosol) 2 puff(s) Inhalation two times aday asthma albuterol (albuterol 90 mcg/inh inhalation aerosol) 2 puff(s) Inhalation four times a day as needed for Shortness of breath / Wheezing * You have let us know that you are not taking this medication as listed. Please talk with your primary care provider or the health care provider who prescribed the medication as soon as possible. Comment: Attention: If you have any medications at home that are not on this list, DO NOT take them until youcontact your provider for clarification. Give a copy of your medication list to your primary care provider. Update your medication list any time medications or doses are changed and carry your medication list at all times in case of emergency. IMPORTANT: We examined and treated you today on an emergency basis only. This was not a substitute for, or an effort to provide, complete medical care. In most cases, you must let your doctor check youagain. Tell your doctor about any new or lasting problems. We cannot recognize and treat all injuries or illnesses in one Emergency Department visit. If you had special tests, such as EKG's or X- rays, we will review them again within 24 hours. We will call you if there are any new suggestions. Please follow the instructions above carefully. If you are being transferred to another facility your followup plan of care will be determined by the receiving facility. If you are a patient that is being discharged from the Emergency Department after receiving narcotics or other medications that may impair your judgment you may be a risk to yourself or others if you operate a motor vehicle. We recommend that you arrange a ride home with a responsible libertarian. ILYA Hair MARY MONICA , or responsible libertarian have received this information and my questions have been answered. I have discussed any challenges I see with this plan with the nurse or physician. Patient Signature or Responsible Green Party/Relationship Date Time Provider Signature Date Time IMPORTANT: We examined and treated you today on an emergency basis only. This was not a substitute for, or an effort to provide, complete medical care. In most cases, you must let your doctor check youagain. Tell your doctor about any new or lasting problems. We cannot recognize and treat all injuries or illnesses in one Emergency Department visit. If you had special tests, such as EKG's or X- rays, we will review them again within 24 hours. We will call you if there are any new suggestions. Please follow the instructions above carefully. If you are being transferred to another facility your followup plan of care will be determined by the receiving facility. If you are a patient that is being discharged from the Emergency Department after receiving narcotics or other medications that may impair your judgment you may be a risk to yourself or others if you operate a motor vehicle. We recommend that you arrange a ride home with a responsible libertarian. ILYA Hair MARY MONICA , or responsible libertarian have received this information and my questions have been answered. I have discussed any challenges I see with this plan with the nurse or physician. Patient Signature or Responsible Green Party/Relationship Date Time Provider Signature Date Time This document has images extracted. Please consider using [employer] for all your patient education needs. Source: [employer] Document Id: [id number] Jade Peres R.N. - 08/10/2017 12:40 AM CDT ED Depart Summary [facility] Emergency Department Clinical Discharge Summary PERSON INFORMATION Name LAUREL CARABALLO Age 22 Years 1995 12:00 AM Sex Female Language Comoran PCP PCP, ELSEWHERE Marital Status Single Visit Id Visit Reason Back pain; back injury Specialty Enc Type Emergency Med Service Emergency Medicine Referred by Track Group [facility] ED Discharge 08/10/2017 12:40 AM Tracking Id [id number] Checkout 08/10/2017 12:40 AM Checkin 08/10/2017 12:07 AM Acuity 4 -Less Urgent Dispo Type * Discharged to Home or Self Care Arrival 08/10/2017 12:07 AM Reg Status Complete LOS 000 00:33 Address: [address] [place] [phone] Comment: PROVIDER INFORMATION Provider Role Provider Contact Time YAMEL REIS MD ED Provider 08/10/17 00:07 JADE PERES SCOW HAND Nurse 08/10/17 00:12 DIAGNOSIS Pain Back Lumbar Comment: PATIENT EDUCATION INFORMATION Instructions: BACK PAIN (Acute or Chronic); Back Safety for Health Care Workers Follow up: With: Address: When: Occupational Health Within As Soon As Possible With: Address: When: ELSEWHERE PCP Within As Needed Source: [employer] Document Id: [id number] M TENENS Jade Peres - 08/10/2017 12:39 AM CDT ED Disposition Summary ED Disposition Summary Entered On: 08/10/2017 0:39 CDT Performed On: 08/10/2017 0:39 CDT by JADE PERES SCOW HAND Disposition Summary Present in Room During Exam/Procedure : Alone Mode of Discharge : Ambulatory Transportation : Private vehicle Printed Discharge Instructions Given to Patient : Yes Patient Status at Discharge from ED : Unchanged 30 Minutes Critical Care : No JADE PERES RN - 08/10/2017 0:39 CDT Source: [facility] [employer] Document Id: [id number] CDT!8 documented in this encounter Medications at Time [...] documented as of this encounter ED Notes Jade Peres - 08/10/2017 12:39 AM CDT ED Pain Assessment ED Pain Assessment Entered On: 08/10/2017 0:40 CDT Performed On: 08/10/2017 0:39 CDT by JADE PERES RN Pain Assessment Pain Symptoms : Yes JADE PERES RN - 08/10/2017 0:39 CDT Pain Scale Pain Scale Verbal 0-10 : Open JADE PERES RN - 08/10/2017 0:39 CDT Pain Pain Assessment Grid Pain 1 Location : Lower back Intensity : 6 JADE PERES RN - 08/10/2017 0:39 CDT Source: [employer] Document Id: [id number] CDT!10 Yamel Reis M.D. - 08/10/2017 12:25 AM CDT *ED Patient: LAUREL CARABALLO Age: 22 years Sex: Female : 1995 Author: YAMEL REIS MD Attachments: None Associated Diagnosis: Pain Back Lumbar Basic Information Additional information: Chief Complaint from Nursing Triage Note : Chief Complaint Description 08/10/2017 0:14 CDT Chief Complaint Description Was moving a pt last night and hurt lower back. Painstarted right away. Denies numbness or tingling. Tylenol 1000mg at 2245. (Modified) . History of Present Illness 22 yo f w/ Crohn's disease (not currently on prednisone) who presents with bilateral lower back painsince last night after moving a patient. Pain started immediately after the heavy lifting. Describedas aching/cramping in the lower back, non-radiating, and worse with movement. No h/o similar. Not completely alleviated with Tylenol. Denies h/o malignancy, unexplained weight loss, loss of bladder or bowel control, urinary retention, motor weakness or sensory deficit, loss of sensation in the buttocks or genitalia, recent trauma, chronic steroid use, recent lumbar surgery, fever, chills, immunosuppression, intravenous drug or insulin use. Review of Systems Constitutional symptoms: No fever. Skin symptoms: No rash. Respiratory symptoms: No shortness of breath. Cardiovascular symptoms: No chest pain. Gastrointestinal symptoms: No abdominal pain. Genitourinary symptoms: No dysuria. Musculoskeletal symptoms: Back pain. Neurologic symptoms: No numbness or no weakness. Health Status Allergies: Allergic Reactions (Selected) Severity Not Documented Codeine- Vomiting.. Past Medical/ Family/ Social History Medical history: Active Crohn's Disease NOS (K50.90) Comments: 05/24/2017 CDT 11:49 CDT - CYNDI BOYD Per External Records. Surgical history: Culture, chlamydia, any source (95853) on 04/11/2012 at 17 Years. 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 Tonsillectomy and adenoidectomy; younger than age 12 (06318) in 2001 at 7 Years. Myringotomy ([id number]) in 1995 at 1 Years.. Family history: Asthma Brother (Marshal) Hypercholesterolemia Father (Dru) . Physical Examination Vital Signs: Vital Signs 08/10/2017 0:14 CDT Temperature Core 36.6 DegC Peripheral Pulse Rate 68 /min Respiratory Rate 16 /min SpO2 99 % Systolic Blood Pressure 107 mmHg Diastolic Blood Pressure 64 mmHg Mean Arterial Pressure 78 mmHg , per nurse's notes, Measurements 08/10/2017 0:14 CDT Height 165 cm Height Source Stated Dosing Weight 64.00 kg Actual Weight 64 kg Body Mass Index 23.51 kg/m2 , SpO2 08/10/2017 0:14 CDT SpO2 99 % . General: Alert and no acute distress. Skin: Warm and dry. Head: Atraumatic. Eye: Pupils are equal, round and reactive to light, extraocular movements are intact and normal conjunctiva. Ears, nose, mouth and throat: Oral mucosa moist. Cardiovascular: Normal peripheral perfusion. Respiratory: Respirations are non-labored. Gastrointestinal: Non distended. Back: No midline tenderness. There is tenderness around the lumbar paraspinous muscles.. Neurological: No focal neurological deficit observed, ambulatory, Level of consciousness: Appropriate for age, Cranial nerves II - XII: Intact and Speech: Normal. Psychiatric: Cooperative and appropriate mood & affect. Medical Decision Making Rationale:Presentation consistent with lumbosacral strain/musculoskeletal back pain. I am not concerned at this time that there is any spinal cord compression given lack of urinary retention, saddle anesthesia, or lower extremity weakness. There is no history of trauma or malignancy to suggest fracture. No history of IV drug use, immunosuppression, fever, recent back surgery, or midline pain to suggest epidural abscess. At this time, lack of any of these aforementioned concerning features and duration < 6 weeks, we will not perform any imaging. We will suggest gentle activity, symptomatic cares,and primary care/occupational care follow-up. Given patient having difficulty sleeping and cannot take NSAIDs due to Crohns will give short courseof valium for muscle relaxation/sleeping.. Impression and Plan Diagnosis Pain Back Lumbar (Discharge, Emergency medicine, Medical) Plan Condition: Stable. Disposition: Discharged: Time 08/10/2017 00:26:00, to home. Prescriptions: Prescription [facility]: diazePAM 5 mg oral tablet (Prescribe): 5 mg, 1 tab(s), PO, 3xDay, for 2 day(s), for back spasm and pain, PRN: Anxiety, 6 tab(s), 0 Refill(s). Patient was given the following educational materials: Back Safety for Health Care Workers, BACK PAIN (Acute or Chronic). Follow up with: ELSEWHERE PCP Within As Needed; Occupational Health Within As Soon As Possible. Counseled: Patient, Regarding diagnosis, Regarding diagnostic results, Regarding treatment plan, Regarding prescription, Patient indicated understanding of instructions. Electronically Signed By: YAMEL REIS MD On: 08/10/2017 02:50 AM Modified by and Electronically Signed by: YAMEL REIS MD On: 08/10/2017 02:50 AM Source: [facility] POWERCHART Document Id: [id number]} Jade Peres - 08/10/2017 12:14 AM CDT ED Primary Assessment Document Has Been Updated ED Primary Assessment Entered On: 08/10/2017 0:18 CDT Performed On: 08/10/2017 0:14 CDT by JADE PERES RN Reason For Visit (As Of: 08/10/2017 00:24:24 CDT) Problems(Active) Asthma NOS (493.90) (ICD-9-CM :493.90 ) Name of Problem: Asthma NOS (493.90) ; Recorder: JUDI ALVARENGA III, MD; Confirmation: Confirmed ; Classification: Medical ; Code: 493.90 ; Last Updated: 11/23/2012 9:29 LOCUM TENENS ; Life Cycle Date: 11/23/2012 ; Life Cycle Status: Active ; Vocabulary: ICD-9-CM Asthma, Unspecified (ICD-9-CM :493.90 ) Name of Problem: Asthma, Unspecified ; Recorder: YVON ZHOU RN; Confirmation: Confirmed ; Classification: Nursing ; Code: 493.90 ; Contributor System: [employer] ; Last Updated: 10/30/2012 13:00 LOCUM TENENS ; Life Cycle Date: 10/30/2012 ; Life Cycle Status: Active ; Responsible Provider: JOHNNIE ZHOU RN; Vocabulary: ICD-9-CM Crohn's Disease NOS (ICD-10-CM :K50.90 ) Name of Problem: Crohn's Disease NOS ; Recorder: CYNDI BOYD; Confirmation: Confirmed ; Classification: Medical ; Code: K50.90 ; Contributor System: [employer] ; Last Updated: 05/24/2017 11:49 CDT ; Life Cycle Date: 05/24/2017 ; Life Cycle Status: Active ; Responsible Provider: CYNDI BOYD; Vocabulary: ICD-10-CM ; Comments: 05/24/2017 11:49 - CYNDI BOYD Per External Records Migraine Headache (HUBBARD) NOS (ICD-9-CM :346.90 ) Name of Problem: Migraine Headache (HUBBARD) NOS ; Recorder: JOHNNIE ZHOU RN; Confirmation: Confirmed ; Classification: Nursing ; Code: 346.90 ; Contributor System: EPS ; Last Updated: 06/29/2014 20:46 CDT ; Life Cycle Date: 06/29/2014 ; Life Cycle Status: Active ; Responsible Provider: JOHNNIE ZHOU RN; Vocabulary: ICD-9-CM Diagnoses(Active) Back pain Date: 08/10/2017 ; Diagnosis Type: Reason For Visit ; Confirmation: Complaint of ; Clinical Dx: Back pain ; Classification: Medical ; Clinical Service: Emergency medicine ; Code: PNED ; Probability: 0 ; Diagnosis Code: [id number] Triage Chief Complaint Description : Was moving a pt last night and hurt lower back. Pain started right away. Denies numbness or tingling. Tylenol 1000mg at 2245. JADE PERES RN - 08/10/2017 0:22 CDT Information Given By : Patient Present in Room During Exam/Procedure : Alone Mode of Arrival ED : Private vehicle, Ambulatory Track : Medical Languages : Comoran Patient Informed of Triage Location : Emergency department Vital Signs Assessed : Yes GCS Assessed : Yes JADE PERES RN - 08/10/2017 0:14 CDT Treatments Prior to Arrival : Acetaminophen, Other: heat JADE PERES RN - 08/10/2017 0:22 CDT Are you ? : No Is Patient Female and 13-50 no hysterectomy : Yes Status : Patient denies JADE PERES RN - 08/10/2017 0:14 CDT Vital Signs Temperature Core : 36.6 DegC(Converted to: 97.9 DegF) Peripheral Pulse Rate : 68 /min Respiratory Rate : 16 /min Systolic Blood Pressure : 107 mmHg Diastolic Blood Pressure : 64 mmHg NIBP Mean : 78 mmHg SpO2 : 99 % Oxygen Therapy : Room air Height : 165 cm(Converted to: 5 ft 5 inch(es)) Actual Weight : 64 kg Actual Weight Conversion to Pounds : 140.8 lb Height Source : Stated Body Mass Index : 23.51 kg/m2 JADE PERES RN - 08/10/2017 0:14 CDT [place] Coma Eye Opening Response Shyanne : Spontaneously Best Verbal Response Shyanne : Oriented Best Motor Response Shyanne : Obeys simple commands Shyanne Coma Score : 15 JADE PERES RN - 08/10/2017 0:14 CDT Pain Assessment Pain Symptoms : Yes JADE PERES RN 08/10/2017 0:14 CDT Pain Scale Pain Scale Verbal 0-10 : Open JADE PERES RN 08/10/2017 0:14 CDT Pain Pain Assessment Grid Pain 1 Location : Lower back Intensity : 6 JADE PERES RN 08/10/2017 0:14 CDT JACQUELINE DCP GENERIC CODE Tracking Group : [facility] ED Tracking Acuity : 4 -Less Urgent JADE PERES RN 08/10/2017 0:14 CDT Respiratory Airway : Patent Respirations : Unlabored Respiratory Pattern : Regular Oxygen Therapy : Room air JADE PERES RN 08/10/2017 0:22 CDT Cardiovascular Heart Rhythm : Regular Skin Color : Normal for ethnicity Skin Description : Normal Skin Temperature : Warm JADE PERES RN 08/10/2017 0:22 CDT Neurological Last Well Time Known : Not applicable Level of Consciousness : Alert Orientation : Oriented x 3 Characteristics of Speech : Clear JADE PERES RN 08/10/2017 0:22 CDT ED Psychosocial Affect/Behavior : Calm, Cooperative, Appropriate Domestic Abuse Concerns : None Behavioral Health Screen/Safety Assmt : No JADE PERES RN - 08/10/2017 0:14 CDT Gastrointestinal Nutrition ED : Adequate JADE PERES RN - 08/10/2017 0:22 CDT Musculoskeletal Fall Prevention Education Provided : NA Musculoskeletal Note : Having lower back pain. Pain is a burning pain. JADE PERES 08/10/2017 0:22 CDT Social Habits Exposure to Tobacco Smoke : Care provider denies smoking in home Smoking Status : Never smoker Tobacco 2A : No Tobacco Use/Currently Using : No Tobacco Use/Last 30 Days : No Tobacco Use/Last 12 months : No JADE PERES RN - 08/10/2017 0:14 CDT Alcohol Use Grid Alcohol Use : No JADE PERES - 08/10/2017 0:14 CDT Recreational Drug Use Grid Drug Use : None JADE PERES - 08/10/2017 0:14 CDT Source: [employer] Document Id: [id number] CDT!24 documented in this encounter Miscellaneous Notes Miscellaneous - Jade Peres - 08/10/2017 12:40 AM CDT Valuables/Belongings Valuables/Belongings Entered On: 08/10/2017 0:40 CDT Performed On: 08/10/2017 0:40 CDT by JADE PERES RN Valuables/Belongings Comment : Room clear of pt belongings. JADE PERES RN - 08/10/2017 0:40 CDT Source: [employer] Document Id: [id number] CDT!3 Miscellaneous - Conversion, Historical Provider Ser - 08/10/2017 12:40 AM CDT Coding Summary-Paper Based CODING DATE: 08/19/2017 FINAL [facility] STATUS: * Discharged to Home or Self Care PAYOR: Workers Compensation ADMIT DX: M54.5 Low back pain REASON FOR VISIT DX: M54.5 Low back pain FINAL DX: PRINCIPAL: M54.5 Low back pain SECONDARY: J45.909 Unspecified asthma, uncomplicated Z88.5 Allergy status to narcotic agent status PROCEDURES DOCTOR NAME DATE NOTE: The code number assigned matches the documented diagnosis and / or procedure in the patient's chart. However, the narrative phrase printed from the coding software may appear abbreviated, or result in slightly different terminology. Coded By: LYLY PHAN Date Saved: 08/19/2017 01:23 pm Source: [employer] Document Id: [id number] Miscellaneous - Jade Peres - 08/10/2017 12:39 AM CDT Discharge Vital Signs Form Discharge Vital Signs Form Entered On: 08/10/2017 0:39 CDT Performed On: 08/10/2017 0:39 CDT by JADE PERES RN Vital Signs Peripheral Pulse Rate : 68 /min Respiratory Rate : 16 /min Systolic Blood Pressure : 103 mmHg Diastolic Blood Pressure : 58 mmHg NIBP Mean : 73 mmHg SpO2 : 99 % Oxygen Therapy : Room air Height : 165 cm(Converted to: 5 ft 5 inch(es)) JADE PERES RN - 08/10/2017 0:39 CDT Source: [employer] Document Id: [id number] CDT!10 Miscellaneous - Jade Peres - 08/10/2017 12:07 AM CDT Facility Charge Ticket 2.0 11.0 DX Facility Charge Ticket 2.0 11.0 DX Entered On: 08/10/2017 0:40 CDT Performed On: 08/10/2017 0:07 CDT by JADE PERES RN Facility Charge Ticket 2.0 11.0 DX ED Other Charges : Standard ED Encounter TVL Level Translated RTF : Back pain TVL:3 TVL Level for Facility Charge Ticket : Level 3 Arrival Mode Calc : 129 Mode of Arrival ED : Private vehicle, Ambulatory Lynx Mode of Arrival Interpreted : Standard [facility]x Process Management : None Lynx Order Management : None 30 Minutes Critical Care : No Nursing Notes RTF : Nursing Notes ED Primary Assessment,08/10/17 00:14,JADE PERES SCOW HAND Pain Assessment,08/10/17 00:39,JADE PERES RN Lynx Nursing Assessment : Triage and 1-2 nursing assessments Lynx Disposition : Discharge Disposition RTF : discharge Lynx Total Points with Diagnosis Control : 5 Lynx Visit Level : 26357 Level 3 Treatments Prior to Arrival : Acetaminophen JADE PERES RN - 08/10/2017 0:40 CDT Source: [employer] Document Id: [id number] CDT!18 documented in this encounter Plan of Treatment Not on filedocumented as of this encounter Visit Diagnoses Not on filedocumented in this encounter
--- OUTSIDE RECORDS SUMMARY | 2022-08-31 12:42 | XMS_ITS | Encounter Summary ---
:1995 Author Organization [facility] Address [address] [place] [address] Care Team Providers Name Role Phone Unavailable Primary Care Provider Unavailable Encounter Details Date Type Department Care Team Description 08/02/2017 Telemedicine Department of Gastroenterology Social History Tobacco [...] Date/Time Associated Comments Diagnosis GASTROENTEROLOGY IMAGE Routine 08/02/2017 1:55 Re sults for this EXAM PM CDT procedure are i n the results section. documented in this encounter Results GASTROENTEROLOGY IMAGE EXAM (08/02/2017 1:55 PM CDT) Specimen (Source) Anatomical Collection Method Collection Time Re ceived Time Location / / Volume Laterality 08/02/2017 1:54 PM CDT Narrative IIMS - 08/02/2017 3:59 PM CDT This order has been created [...]
--- OUTSIDE RECORDS SUMMARY | 2022-08-31 12:42 | XMS_ITS | Encounter Summary ---
:1995 Author Organization [facility] Address [address] [place] [address] Care Team Providers Name Role Phone Unavailable Primary Care Provider Unavailable Encounter Details Date Type Department Care Team Description 07/29/2017 Hospital Encounter HX [facility] Shazia Denny M .D., M.P.H. [address] [place], [place] [phone] (Wo rk) Social History [...] Sign Reading Time Taken Comments Blood Pressure 92/58 07/29/2017 3:03 PM CDT Pulse 60 07/29/2017 3:03 PM CDT Temperature - - Respiratory Rate 16 07/29/2017 3:03 PM CDT Oxygen Saturation - - Inhaled Oxygen Concentration - - Weight 64.7 kg (142 lb 10.2 oz) 07/29/2017 3:03 PM CDT Height - - Body Mass Index 23.76 05/30/2017 11:42 AM CDT documented in this encounter Medications [...] encounter Progress Notes Shazia Berrios M.D. - 07/29/2017 3:02 PM CDT [id number] CHIEF COMPLAINT/REASON FOR VISIT Return to work discussion. Employer: [employer] in [place]. 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 HISTORY OF PRESENT ILLNESS Ms. Dana Caraballo is a 22-year-old female here for her return to work discussion. She has been off work for the past 2 months due to newly diagnosed Crohn disease which she has been seen by Dr. Murphy agastroenterologist at the [facility] in [place] and is currently taking Remicade injection every 8 weeks and daily Imuran. She continues to have side effects from the Imuran mainly nausea and increasingly tired. The GI specialist continues to adjust her medication. She continues to have significantflare-ups that involve increased fatigue and diffuse abdominal pain. Over the past week or so she has been in bed up to 3 days due to severe abdominal pain. She is scheduled to see Dr. Murphy at the [facility] April 2017. Evaluation completed for her Crohn visit shows extensive colitis with ulcerative findings on her colon. She has been on short-term disability for the past 2 months and has not been able to work so far. She is here today to discuss the return to work process. Ms. Caraballo is here today for a recheck. Since her last visit, she noted improvement in her symptoms. Denied any fatigue today. She will continue to follow up with the GI specialists at the [facility] in [place]. She was able to return to work unrestricted with no difficulties. She reported havingmore energy and denied any other concern today. Please see previous note [...] Codeine. 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 No other job reported. She has been off work since February 2017 due to her newly diagnosed Crohn disease. PAST MEDICAL/SURGICAL HISTORY Significant for migraine headaches and Crohn disease. PHYSICAL EXAMINATION GENERAL: She is alert, oriented, in no acute distress. VITAL SIGNS: Reviewed and stable HEART: Regular rate and rhythm. LUNGS: Clear to auscultation bilaterally. ABDOMEN: Soft with minimal discomfort on palpation of the right and left lower quadrant. No guardingand no rebound tenderness noted. IMPRESSION/REPORT/PLAN 1. Return to work discussion. 2. Crohn disease, newly diagnosed. I explained to Ms. Caraballo that there is no patient-provider relationship for this evaluation and that this evaluation is conducted at the request of her employer to determine her ability to perform the essential functions of her job. Overall her symptoms seem significantly improved. The patient has been working unrestricted. At this point she will be released to full duties. No additional visit needed. Paperwork completed. Please see scanned document for detail. This is a 20-minute visit with 15 minutes for counseling, coordination of care, discussing followup plan, answering her questions, and completing the return to work paperwork. Shazia Berrios M.D./robert Electronically Signed By: SHAZIA BERRIOS MD On: 07/30/2017 10:50 AM Modified by and Electronically Signed by: SHAZIA BERRIOS MD On: 07/30/2017 10:50 AM Source: [facility]OLBEYNON[employer]SYS Document Id: [id number] documented in this encounter Miscellaneous Notes Miscellaneous - Shazia Berrios M.D. - 07/29/2017 4:06 PM CDT Ambulatory Discharge Medication List [place] [facility] [address], [address] [place], [place] [phone] Visit Information Name: DANA CARABALLO [facility] Number: [id number] Current Date: 07/29/2017 16:06:09 Attending Provider: SHAZIA BERRIOS MD Primary Care [...] Take Indications/Special Instructions/Comments/Notes for Patient Medication Changes/Routing adalimumab (Humira) 40 mg, Subcutaneous, once albuterol (albuterol 90 mcg/inh inhalation aerosol) 2 [...] the Following Medications: Medication list as of 07-29-17 16:06 Attention: If you have any medications at [...] Electronically Signed By: SHAZIA BERRIOS MD Signed On:29-JUL-2017 16:06:02 Additional Information: Source: [facility] POWERCHART Document Id: [id number] Miscellaneous - Shazia Berrios M.D. - 07/29/2017 4:06 PM CDT Ambulatory Patient Summary [address], [address] [place], [place] [id number] Visit Information Name: DANA CARABALLO [facility] Number: [id number] Current Date: 07/29/2017 16:06:09 Physicians Attending Provider: SHAZIA BERRIOS MD Primary [...] Take Indications/Special Instructions/Comments/Notes for Patient Medication Changes/Routing adalimumab (Humira) 40 mg, Subcutaneous, once albuterol (albuterol 90 mcg/inh inhalation aerosol) 2 [...] the Following Medications: Medication list as of 07-29-17 16:06 Attention: If you have any medications at [...] Electronically Signed By: SHAZIA BERRIOS MD Signed On:29-JUL-2017 16:06:02 Your Allergies & Intolerances Substance Reaction Symptoms Category Comments codeine vomiting Drug Your Problem List Problem Status Onset Comments Asthma, Unspecified Active Asthma NOS (493.90) Active Migraine Headache (HUBBARD) NOS Active Crohn's Disease NOS Active 05/24/17 Per External Records Your Upcoming Appointments Date Time Location Provider No Appointments found Attention: Contact your local Clinic if further [...] if you dont have one. Go to [email or web address] and click on Create Your Account. Then, follow the directions to complete the online form. Youll be asked for your [facility] number which you can find at the top of this document. Your Goals/Additional instructions: Source: [facility] POWERCHART Document Id: [id number] Miscellaneous - Tracy Card L.P.N. - 07/29/2017 3:03 PM CDT Adult Communications Programmer Intake/History Adult Communications Programmer Intake/History Entered On: 07/29/2017 15:07 CDT Performed On: 07/29/2017 15:03 CDT by TRACY CARD LPN Intake Chief Complaint : Fit for Duty [facility] Peripheral Pulse Rate : 60 /min Respiratory Rate : 16 /min Heart Rhythm : Regular Systolic Blood Pressure : 92 mmHg Diastolic Blood Pressure : 58 mmHg NIBP Mean : 69 mmHg BP Location : Right upper extremity Blood Pressure Cuff Size : Regular Actual Weight : 64.7 kg(Converted to: 142 lb 10 oz) Weight Source : Standing scale Dosing Weight Clinic : 64.7 kg TRACY CARD LPN - 07/29/2017 15:03 CDT General Info Information Given By : Patient Languages : Uruguayan Is Patient Female and 13-50 no hysterectomy : Yes Status : Patient denies Are you ? : No TRACY CARD LPN - 07/29/2017 15:03 CDT Subjective Pain Symptoms : No TRACY CARD LPN - 07/29/2017 15:03 CDT Dependent Habits Exposure to Tobacco Smoke : Care provider denies smoking in home Smoking Status : Never smoker Tobacco 2A : No Tobacco Use/Currently Using : No Tobacco Use/Last 30 Days : No Tobacco Use/Last 12 months : No TRACY CARD LPN - 07/29/2017 15:03 CDT Caffeine Use Grid Caffeine Use : Current Type : Soft drinks Frequency : Daily Amount : 1 serving TRACY CARD LPN - 07/29/2017 15:03 CDT Recreational Drug Use Grid Drug Use : None TRACY CARD LPN - 07/29/2017 15:03 CDT Source: [facility] POWERCHART Document Id: [id number] CDT!38 documented in this encounter Plan of Treatment Not on filedocumented as of this encounter Visit Diagnoses Not on filedocumented in this encounter
--- OUTSIDE RECORDS SUMMARY | 2022-08-31 12:42 | XMS_ITS | Encounter Summary ---
:1995 Author Organization [facility] Address [address] [place] [address] Care Team Providers Name Role Phone Unavailable Primary Care Provider Unavailable Encounter Details Date Type Department Care Team Description 08/01/2017 Telemedicine Department of Gastroenterology Social History Tobacco [...] Date/Time Associated Comments Diagnosis GASTROENTEROLOGY IMAGE Routine 08/01/2017 12:50 R esults for this EXAM PM CDT procedure are i n the results section. documented in this encounter Results GASTROENTEROLOGY IMAGE EXAM (08/01/2017 12:50 PM CDT) Specimen (Source) Anatomical Collection Method Collection Time Re ceived Time Location / / Volume Laterality 08/01/2017 12:50 PM CDT Narrative IIMS - 08/01/2017 1:33 PM CDT This order has been created [...]
--- OUTSIDE RECORDS SUMMARY | 2022-08-31 12:42 | XMS_ITS | Encounter Summary ---
:1995 Author Organization [facility] Address [address] [place] [address] Care Team Providers Name Role Phone Unavailable Primary Care Provider Unavailable Encounter Details Date Type Department Care Team Description 07/01/2017 Hospital Encounter HX [facility] Shazia Denny M .D., M.P.H. [address] [place], [place] [phone] (Wo rk) Social History [...] [facility] [place] [facility] Sex Assigned at Date Recorded Female 07/18/2021 2:49 PM CDT documented as of this encounter Last Filed Vital Signs Vital Sign Reading Time Taken Comments Blood Pressure 84/56 07/01/2017 4:03 PM CDT Pulse 64 07/01/2017 4:03 PM CDT Temperature - - Respiratory Rate 16 07/01/2017 4:03 PM CDT Oxygen Saturation - - Inhaled Oxygen Concentration - - Weight 64.9 kg (143 lb 1.3 oz) 07/01/2017 4:03 PM CDT Height - - Body Mass Index 23.84 05/30/2017 11:42 AM CDT documented in this [...] encounter Progress Notes Shazia Berrios M.D. - 07/01/2017 3:59 PM CDT [id number] CHIEF COMPLAINT/REASON FOR VISIT Return to work discussion. 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 HISTORY OF PRESENT ILLNESS Ms. Dana Caraballo is a 22-year-old female here for her return to work discussion. She has been off work for the past 2 months due to newly diagnosed Crohn disease which she has been seen by Dr. Murphy agastroenterologist at the [facility] in [place] and is currently taking Remicade injection every [...] scheduled to see Dr. Murphy at the [facility] April 2017. Evaluation completed for her Crohn visit shows extensive colitis with ulcerative findings on her colon. She has been on short-term disability for the past 2 months and has not been able to work so far. She is here today to discuss the return to work process. Ms. Caraballo is here today for recheck. Since her last visit she noted improvement in her symptoms but continues to feel tired. She continues to have some minimal abdominal discomfort and is in the process to call her GI specialist. She has multiple appointments coming up in early July for followup including a colonoscopy on August 01, 2017. She is currently working 4-hour shift with no difficulties. Denied any other concern. She completed physical therapy and is still doing home physical therapy exercises for conditioning. No other concern today. Please see previous [...] Codeine. 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 No other job reported. She has been off work since February 2017 due to her newly diagnosed Crohn disease. PAST MEDICAL/SURGICAL HISTORY Significant for migraine headaches and Crohn disease. PHYSICAL EXAMINATION GENERAL: She is alert, oriented, in no acute distress. VITAL SIGNS: Reviewed and stable except blood pressure of 84/56. HEART: Regular rate and rhythm. LUNGS: Clear to auscultation bilaterally. ABDOMEN: Soft with minimal discomfort on palpation of the right and left lower quadrant. No guardingand no rebound tenderness noted. IMPRESSION/REPORT/PLAN 1. Return to work discussion. 2. Crohn disease newly diagnosed. I explained to Mrs. Caraballo that there is no patient-provider relationship for this evaluation and that this evaluation is conducted at the request of her employer to determine her ability to perform the essential functions of her job. Overall her symptoms seem to be improving at this point. We discussed the low blood pressure which has been low for the past several months. I advised her to reach out to her specialist for just further discussion. We discussed the return to work process in detail. She is able to work 4-hour shift 5 days a week for the past couple weeks with no difficulties. Will plan on keeping her at 4 hours for now. She is in the process to reduce her 1.0 FT to 0.5 FT for the long-term. She understands that if she has any question or concern she will need to call the clinic forfurther evaluation. Paperwork completed. Please see scanned document for detail. This was a 20-minute visit with 15 minutes for counseling, coordination of care, discussing followupplan, answering her questions and completing the return to work paperwork. Shazia Berrios M.D./robert Electronically Signed By: SHAZIA BERRIOS MD On: 07/03/2017 05:25 PM Source: [facility] MHSDOLBEYNONRADSYS Document Id: [id number] documented in this encounter Miscellaneous Notes Miscellaneous - Shazia Berrios M.D. - 07/01/2017 4:23 PM CDT Ambulatory Patient Summary [address] [place], [place] [phone] Visit Information Name: DANA CARABALLO [facility] Number: [id number] Current Date: 07/01/2017 16:23:27 Physicians Attending Provider: SHAZIA BERRIOS MD Primary [...] the Following Medications: Medication list as of 07-01-17 16:23 Attention: If you have any medications at [...] Electronically Signed By: SHAZIA BERRIOS MD Signed On:01-JUL-2017 16:23:17 Your Allergies & Intolerances Substance Reaction Symptoms Category Comments codeine vomiting Drug Your Problem List Problem Status Onset Comments Asthma, Unspecified Active Asthma NOS (493.90) Active Migraine Headache (HUBBARD) NOS Active Crohn's Disease NOS Active 05/24/17 Per External Records Your Upcoming Appointments Date Time Location Provider 07/19/2017 10:00 [facility] [employer] [facility] Chair 1 Attention: Contact your local Clinic [...] if you dont have one. Go to [email or web address] and click on Create Your Account. Then, follow the directions to complete the online form. Youll be asked for your [facility] number which you can find at the top of this document. Your Goals/Additional instructions: Source: [facility] POWERCHART Document Id: [id number] Miscellaneous - Shazia Berrios M.D. - 07/01/2017 4:23 PM CDT Ambulatory Discharge Medication List [facility] [address], [address] [place], [place] [phone] Visit Information Name: DANA CARABALLO [facility] Number: [id number] Current Date: 07/01/2017 16:23:26 Attending Provider: SHAZIA BERRIOS MD Primary Care [...] the Following Medications: Medication list as of 07-01-17 16:23 Attention: If you have any medications at [...] Electronically Signed By: SHAZIA BERRIOS MD Signed On:01-JUL-2017 16:23:17 Additional Information: Source: [facility] POWERCHART Document Id: [id number] Miscellaneous - Dustin Styles L.P.N. - 07/01/2017 4:03 PM CDT Adult Scrap Wheeler Intake/History Adult Scrap Wheeler Intake/History Entered On: 07/01/2017 16:07 CDT Performed On: 07/01/2017 16:03 CDT by DUSTIN STYLES LPN Intake Chief Complaint : Fit for Duty [facility] Peripheral Pulse Rate : 64 /min Respiratory Rate : 16 /min Heart Rhythm : Regular Systolic Blood Pressure : 84 mmHg (<LLOW) Diastolic Blood Pressure : 56 mmHg NIBP Mean : 65 mmHg BP Location : Right upper extremity Blood Pressure Cuff Size : Regular Actual Weight : 64.9 kg(Converted to: 143 lb 1 oz) Weight Source : Standing scale Dosing Weight Clinic : 64.9 kg DUSTIN STYLES LPN - 07/01/2017 16:03 CDT General Info Information Given By : Patient Languages : Czech Is Patient Female and 13-50 no hysterectomy : Yes Status : Patient denies Are you ? : No DUSTIN STYLES LPN - 07/01/2017 16:03 CDT Subjective Pain Symptoms : Yes DUSTIN STYLES LPN - 07/01/2017 16:03 CDT Pain Scale Pain Scale Verbal 0-10 : Open DUSTIN STYLES LPN - 07/01/2017 16:03 CDT Pain Pain Assessment Grid Pain 1 Location : Abdomen Laterality : Left Intensity : 4 DUSTIN STYLES LPN - 07/01/2017 16:03 CDT Dependent Habits Exposure to Tobacco Smoke : Care provider denies smoking in home Smoking Status : Never smoker Tobacco 2A : No Tobacco Use/Currently Using : No Tobacco Use/Last 30 Days : No Tobacco Use/Last 12 months : No DUSTIN STYLES LPN - 07/01/2017 16:03 CDT Caffeine Use Grid Caffeine Use : Current Type : Soft drinks Frequency : Daily Amount : 1 serving DUSTIN STYLES LPN - 07/01/2017 16:03 CDT Recreational Drug Use Grid Drug Use : None DUSTIN STYLES LPN - 07/01/2017 16:03 CDT Source: [facility] [employer] Document Id: [id number] CDT!46 documented in this encounter Plan of Treatment Not on filedocumented as of this encounter Visit Diagnoses Not on filedocumented in this encounter
--- OUTSIDE RECORDS SUMMARY | 2022-08-31 12:42 | XMS_ITS | Encounter Summary ---
:1995 Author Organization [facility] Address [address] [place] [address] Care Team Providers Name Role Phone Unavailable Primary Care Provider Unavailable Encounter Details Date Type Department Care Team Description 05/16/2017 Hospital Encounter HX [facility] Shazia Denny M .D., M.P.H. [address] [place], [place] [phone] (Wo rk) Social History [...] Sign Reading Time Taken Comments Blood Pressure 93/55 05/16/2017 10:49 AM CDT Pulse 77 05/16/2017 10:49 AM CDT Temperature - - Respiratory Rate [...] encounter Progress Notes Shazia Berrios M.D. - 05/16/2017 10:42 AM CDT [id number] CHIEF COMPLAINT/REASON FOR VISIT Return to work discussion. Employer is [employer]. 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 HISTORY OF PRESENT ILLNESS Ms Dana Caraballo is a 22-year-old female here for her return to work discussion. She has been off work for the past 2 months due to newly diagnosed Crohn disease which she has been seen by Dr. Murphy a cyber security administrator at the [facility] in [place] and is currently taking Remicade injection every [...] process. Mrs. Caraballo is here today for a recheck. Since her last visit, she continued to feel extremely fatigued. She was seen by the GI specialist at the [facility] in [place] on May 10 and is scheduled to have an MRI to assess the progression of her disease. She continues to have some loose stool, although she stated that it is semi-formed at this point. She has continued to go, averaging about 3 to4 stools a day. She was recently referred to Physical Therapy for overall conditioning and has her 1st appointment scheduled for Saturday. She is still in process to reduce her FTE to 0.5. She has been off work for the past couple of months. Today, she reports extreme fatigue. She continues to have intermittent abdominal pain and still feeling tired. She tried to walk during the day with some difficulties. She denied any other concern today. Please see [...] Codeine. 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 No other job reported. She has been off work since February 2017 due to her newly diagnosed Crohn disease. PAST MEDICAL/SURGICAL HISTORY Significant for migraine headaches and Crohn disease. PHYSICAL EXAMINATION GENERAL: She is alert, oriented, in no acute distress. VITALS: Reviewed and stable. Rest of physical examination was deferred. IMPRESSION/REPORT/PLAN 1. Return to work discussion. 2. Crohn's disease, currently adjusting her medication. I explained to the patient that there is no patient-provider relationship for this evaluation and that this evaluation is conducted at the request of her employer to determine her ability to perform the essential functions of her job. I did review the Gastrointestinal Specialist's note from [place].She is scheduled to have another MRI. At this point, I explained to Mrs. Caraballo that we should wait to see the result of the MRI before discussing her return to work process. She also has her physical therapy scheduled for this week for conditioning. It will be reasonable to have a couple visits done to physical therapy before making any further determination about her ability to return to work. I think if no major findings are noted on MRI, she should be able to return to work in a limited capacity starting at 4 hours per shift to see how she responds to increased activities. She will be seen back next week after the MRI is obtained and the physical therapy note is released. All questions answer ed to the best of my ability. This was a 20 minute visit with 15 minutes for counseling, coordination of care, discussing followup plan, answering her questions, and completing the return to work paperwork. Shazia Berrios M.D./robert Electronically Signed By: SHAZIA BERRIOS MD On: 05/20/2017 07:13 AM Source: [facility] MHSDOLBEYNONRADSYS Document Id: [id number] Addendum by SHAZIA BERRIOS MD on May 23, 2017 14:59 CDT Patient repeated MRI showed improvement. She started physical therapy as well for conditioning. Plan is to have her return to 4 hours shift starting on 05/31 and will see her for recheck on 05/30. She will call if questions or concerns. Patient verbalizes understanding and agrees with the plan. Modified by and Electronically Signed by: SHAZIA BERRIOS MD On: 05/23/2017 02:59 PM Source: [facility] [employer] Document Id: [id number] documented in this encounter Nursing Notes Lucian Carrington L.P.N. - 05/16/2017 10:51 AM CDT Nurse Only Documentation Nurse Only Documentation Entered On: 05/16/2017 10:52 CDT Performed On: 05/16/2017 10:51 CDT by LUCIAN CARRINGTON LPN Nurse Only Documentation Nurse Only Visit Documentation : Recheck today and return to work. Employer [facility]-LUCIAN RAMOS LPN - 05/16/2017 10:51 CDT Source: [facility] POWERCHART Document Id: [id number] CDT!3 documented in this encounter Miscellaneous Notes Miscellaneous - Shazia Berrios M.D. - 05/16/2017 12:35 PM CDT Ambulatory Patient Summary [facility] [address], [address] [place], [place] [id number] Visit Information Name: DANA CARABALLO [facility] Number: [id number] Current Date: 05/16/2017 12:35:11 Physicians Attending Provider: SHAZIA BERRIOS MD Primary [...] the Following Medications: Medication list as of 05-16-17 12:35 Attention: If you have any medications at [...] Electronically Signed By: SHAZIA BERRIOS MD Signed On:16-MAY-2017 12:35:06 Your Allergies & Intolerances Substance Reaction Symptoms Category Comments codeine vomiting Drug Your Problem List Problem Status Onset Comments Asthma, Unspecified Active Asthma NOS (493.90) Active Migraine Headache (HUBBARD) NOS Active Your Upcoming Appointments Date Time Location Provider 05/24/2017 10:00 [facility] [employer] [facility] Chair 1 Attention: Contact your local Clinic [...] if you dont have one. Go to [email or web address] and click on Create Your Account. Then, follow the directions to complete the online form. Youll be asked for your [facility] number which you can find at the top of this document. Your Goals/Additional instructions: Source: [facility] POWERCHART Document Id: [id number] Miscellaneous - Shazia Berrios M.D. - 05/16/2017 12:35 PM CDT Ambulatory Discharge Medication List [address] [place], [place] [id number] Visit Information Name: DANA CARABALLO [facility] Number: [id number] Current Date: 05/16/2017 12:35:11 Attending Provider: SHAZIA BERRIOS MD Primary Care [...] the Following Medications: Medication list as of 05-16-17 12:35 Attention: If you have any medications at [...] Electronically Signed By: SHAZIA BERRIOS MD Signed On:16-MAY-2017 12:35:06 Additional Information: Source: [facility] POWERCHART Document Id: [id number] Miscellaneous - Lucian Carrington, L.P.N. - 05/16/2017 10:49 AM CDT Adult Manager Mass Intake/History Adult Manager Mass Intake/History Entered On: 05/16/2017 10:51 CDT Performed On: 05/16/2017 10:49 CDT by LUCIAN CARRINGTON LPN Intake Chief Complaint : Recheck today - *return to work Employer - [facility] [employer]- Peripheral Pulse Rate : 77 /min Systolic Blood Pressure : 93 mmHg Diastolic Blood Pressure : 55 mmHg NIBP Mean : 68 mmHg BP Location : Right upper extremity Blood Pressure Cuff Size : Regular [facility] - 05/16/2017 10:49 CDT General Info Information Given By : Patient Languages : East Timorese Is Patient Female and 13-50 no hysterectomy : Yes Status : Patient denies Are you ? : No [facility] 05/16/2017 10:49 CDT Subjective Pain Symptoms : Yes [facility] 05/16/2017 10:49 CDT Pain Scale Pain Scale Verbal 0-10 : Open [facility] - 05/16/2017 10:49 CDT Pain Pain Assessment Grid Pain 1 Location : Other: gastro Intensity : 3 [facility] 05/16/2017 10:49 CDT Dependent Habits Exposure to Tobacco Smoke : Care provider denies smoking in home Smoking Status : Never smoker Tobacco 2A : No Tobacco Use/Currently Using : No Tobacco Use/Last 30 Days : No Tobacco Use/Last 12 months : No LUCIAN CARR[facility] [employer] 05/16/2017 10:49 CDT Caffeine Use Grid Caffeine Use : Current Type : Soft drinks Frequency : Daily Amount : 1 serving [facility] - 05/16/2017 10:49 CDT Recreational Drug Use Grid Drug Use : None [facility] 05/16/2017 10:49 CDT Source: [employer] Document Id: [id number] CDT!40 documented in this encounter Plan of Treatment Not on filedocumented as of this encounter Visit Diagnoses Not on filedocumented in this encounter
--- OUTSIDE RECORDS SUMMARY | 2022-08-31 12:42 | XMS_ITS | Encounter Summary ---
:1995 Author Organization [facility] Address [address] [place] [address] Care Team Providers Name Role Phone Unavailable Primary Care Provider Unavailable Encounter Details Date Type Department Care Team Description 03/29/2017 - Hospital Encounter HX [facility] Angelic Murphy, 07/08/2017 ROQUE Parks [address] [place], [place] [id number] Social History Tobacco Use Types Packs/Day Years [...] Sign Reading Time Taken Comments Blood Pressure 96/52 05/24/2017 12:45 PM CDT Pulse 89 03/29/2017 1:20 PM CDT Temperature - - Respiratory Rate 18 03/29/2017 1:20 PM CDT Oxygen Saturation - - Inhaled Oxygen Concentration - - Weight - - Height - - Body Mass Index - - documented in this encounter Medications at Time of Discharge Medication Sig Dispensed Refills Start Date End Date albuterol (for_PROVENTIL Inhale 1-2 puffs. 0 04/0 12/201607/29/2020 HFA,VENTOLIN HFA) 90 mcg/actuation inhaler CALCIUM [...] documented as of this encounter Progress Notes Ko Hussein APRN, C.N.P. - 06/04/2017 1:43 PM CDT Phone Conversation S: Laurel placed a phone call to Occupational Medicine department stating that she would like a slight change to her most recent work limitations. She states she is tolerating 4 hour shifts, but any stretch greater than 3 days in a row is concerning to her, as she just completed 3 shifts in succession and was very fatigued after. 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 The most recent recommendations from our department were 4 hour duration shifts, 5 shifts per week, but the number of days in succession was not specified. A: Laurel is working through conditioning to the work atmosphere. Because of the safety sensitive nature of her job, we will adjust her work restrictions to reflect her current abilities. R: The work-ability form is modified to specify that in addition to the outlined restrictions, Shae work no more than 3 days in a row. She will return to our office as previously scheduled for follow-up, contact sooner if concerns. Electronically Signed By: KO HUSSEIN CNP., RN On: 06/04/2017 01:48 PM Source: [facility] POWERCHART Document Id: [id number] documented in this encounter Procedure Notes Ronaldo Torres R.N. - 05/24/2017 12:54 PM CDT Peripheral IV Peripheral IV Entered On: 05/24/2017 12:54 CDT Performed On: 05/24/2017 12:54 CDT by RONALDO TORRES RN Peripheral IV Peripheral IV Assess/Intervention Grid Peripheral IV #1 IV Activity : Discontinue Date of Insertion : 05/24/2017 CDT Discontinued Date : 05/24/2017 CDT IV Site : Forearm Laterality : Right Catheter Size : 24 Catheter Type : Protective RONALDO TORRES RN - 05/24/2017 12:54 CDT Source: [employer] Document Id: [id number] CDT!11 Ronaldo Torres R.N. - 05/24/2017 10:34 AM CDT Peripheral IV Peripheral IV Entered On: 05/24/2017 10:35 CDT Performed On: 05/24/2017 10:34 CDT by RONALDO TORRES RN Peripheral IV Peripheral IV Assess/Intervention Grid Peripheral IV #1 IV Activity : Start Date of Insertion : 05/24/2017 CDT Discontinued Date : 05/24/2017 CDT IV Site : Forearm Laterality : Right Catheter Size : 24 Catheter Type : Protective Site Condition : No complications Drainage Description : None Infiltration Score : 0 Phlebitis Score : 0 Dressing/ Activity : Transparent Flow/ Patency : No complications RONALDO TORRES RN - 05/24/2017 10:34 CDT Source: [employer] Document Id: [id number] CDT!17 documented in this encounter Nursing Notes Ronaldo Torres R.N. - 07/08/2017 1:08 PM CDT infusion note Patient called today and stated that she no longer recieves IV Remicade infusion. Patient has no questions. Electronically Signed By: RONALDO TORRES RN On: 07/08/2017 01:09 PM Source: [employer] Document Id: [id number] Ronaldo Torres R.N. - 05/24/2017 1:00 PM CDT infusion note pt here for Remicade infusion. She will come every 8 weeks. IV placed pre infusion and discontinuedpost infusion. IV removed when done tip intact. tolerated infusion well. Pre medications given 30 minutes prior to infusion. Patient lunch and rested in-between vs taken. Infusion ramped up per protocol every 15 minutes. Patient will be coming back in 8 weeks for next infusion. Electronically Signed By: RONALDO TORRES RN On: 05/24/2017 01:03 PM Source: [employer] Document Id: [id number] Meredith Desouza R.N. - 03/29/2017 11:50 PM CDT infusion note pt here for Remicade infusion. She will come every 8 weeks. IV placed with 1 attempt in left AC. 22gauge. IV removed when done tip intact. tolerated infusion well. Patient did not want her Tylenol asshe took 1000mg at home prior to coming to her infusion. ate lunch rested in-between vs taken. BP dropped a little so did not ramp up infusion as directed went a little slower. VSS when completed. patient replied that her b/p is low normally. she felt fine. coming back in 8 weeks. on schedule for Electronically Signed By: MEREDITH DESOUZA RN On: 03/29/2017 11:59 PM Source: [employer] Document Id: [id number] Ronaldo Torres R.N. - 03/18/2017 1:39 PM CDT Protocol Vascular Access Adult Protocol Vascular Access Adult Entered On: 03/18/2017 13:39 CDT Performed On: 03/18/2017 13:39 CDT by RONALDO TORRES RN Vascular Access Adult Protocol Age 15 years or older Adult Protocol : Yes Vascular Access Device Adult : Yes Exclusion Criteria Adult Vascular Access Protocol : Patient has none of the below exclusions Vascular Access Protocol Status Adult : Criteria Met RONALDO TORRES RN - 03/18/2017 13:39 CDT Source: [employer] Document Id: [id number] CDT!6 documented in this encounter Miscellaneous Notes Miscellaneous - Conversion, Historical Provider Ser - 04/18/2017 4:01 PM CDT Coding Summary-Paper Based CODING DATE: 04/18/2017 FINAL [facility] STATUS: Still Patient/Expected to Rtn Oupt [facility] PAYOR: Commercial Insurance ADMIT DX: REASON FOR VISIT DX: FINAL DX: PRINCIPAL: K50.10 Crohn's disease of large intestine without complications SECONDARY: PROCEDURES DOCTOR NAME DATE NOTE: The code number assigned matches the documented diagnosis and / or procedure in the patient's chart. However, the narrative phrase printed from the coding software may appear abbreviated, or result in slightly different terminology. Coded By: VIOLA MANSFIELD, [facility] Date Saved: 04/18/2017 04:01 pm Source: [employer] Document Id: [id number] documented in this encounter Plan of Treatment Not on filedocumented as of this encounter Visit Diagnoses Not on filedocumented in this encounter
--- OUTSIDE RECORDS SUMMARY | 2022-08-31 12:43 | XMS_ITS | Encounter Summary ---
:1995 Author Organization [facility] Address [address] [place] [address] Care Team Providers Name Role Phone Unavailable Primary Care Provider Unavailable Encounter Details Date Type Department Care Team Description 11/20/2012 Hospital Encounter HX [facility] Syl Harris M.D. Social History Tobacco Use Types Packs/Day Years Used Date Smoking Tobacco: Never Assessed Alcohol Habits Answer Date Recorded How often [...] or relatives? How often do you attend evangelical or 1 to 4 times per year 11/11 restorationism services? Do you belong to any clubs or Yes 11/23/2021 organizations such as evangelical groups, unions, fraternal or athletic groups, or [...] slept in a group home (including now)? Sex Assigned at Date Recorded Female 07/18/2021 2:49 PM CDT documented as of this encounter Plan of Treatment Not on filedocumented as of this encounter Visit Diagnoses Not on filedocumented in this encounter
--- OUTSIDE RECORDS SUMMARY | 2022-08-31 12:43 | XMS_ITS | Encounter Summary ---
:1995 Author Organization [facility] Address [address] [place] [address] Care Team Providers Name Role Phone Unavailable Primary Care Provider Unavailable Encounter Details Date Type Department Care Team Description 12/15/2011 Hospital Encounter HX [facility] Michelle Browne, N.P. [address] [place] [phone] (Wo rk) Social History Tobacco Use Types [...] Sign Reading Time Taken Comments Blood Pressure 106/68 12/15/2011 10:31 AM TOOL AND DIE MAKER LEVEL FIVE Pulse 68 12/15/2011 10:31 AM TOOL AND DIE MAKER LEVEL FIVE Temperature - - Respiratory Rate 16 12/15/2011 10:31 AM TOOL AND DIE MAKER LEVEL FIVE Oxygen Saturation - - Inhaled Oxygen Concentration - - Weight 59.2 kg (130 lb 8.2 oz) 12/15/2011 10:31 AM TOOL AND DIE MAKER LEVEL FIVE Height - - Body Mass Index - - documented in this encounter Progress Notes Charlotte Browen, N.P. - 12/15/2011 12:00 AM CST [id number] CHIEF COMPLAINT/REASON FOR VISIT Splinter to right middle finger. HISTORY OF PRESENT ILLNESS This is a 16-year-old female who is here today with her mom with concerns about a splinter in her right middle finger. She reports that last evening when she was reaching into a cupboard is when the injury occurred. Her mother tried to remove the splinter with a pair of tweezers and doing some soaks but have been unable to do so. Laurel reports her tetanus shot is up-to-date. She states that the affected finger is slightly tender and they have not noticed any drainage or redness or swelling. CURRENT MEDICATIONS 1. Oral contraceptive daily. 2. Symbicort. ALLERGIES Codeine. PAST MEDICAL/ SURGICAL HISTORY Asthma. VITAL SIGNS Vital signs: Temperature 36.6, pulse 68, respirations 16, blood pressure 106/68. PHYSICAL EXAMINATION GENERAL: Laurel is alert, oriented x3, appears in no acute distress. EXTREMITIES: Right middle finger is examined. She does appear to have a splinter noted on the medial aspect of the distal phalange that seems to be embedded between the nail border and into the surrounding soft tissue. There is no significant swelling, erythema or drainage noted. Sensation is intact. Movement is not limited. PROCEDURE: After informed consent was obtained from the mother, a digital block was used to anesthetize the finger with good results. Warm soaks were also done while the block with taking affect. The area was cleansed with Betadine. Then a tweezer and 18-gauge needle were used to remove what appears to be a wooden splinter in its entirety. Laurel tolerated this procedure well. Dressing with bacitracin was applied afterwards. IMPRESSION/REPORT/PLAN Splinter removal from finger. PLAN: 1. Discussed with Laurel and her mother that I would like her to continue doing warm soaks with Epsom salts up to two times daily. She is to keep the area clean, dry and covered and monitor for any signs or symptoms of infection. Their questions have been addressed and they will return to the clinic as needed. Patient Education #1 Patient ready to learn. No apparent learning barriers were identified. Learning preferences included listening. Explained diagnosis and treatment plan. Patient expressed understanding of the content. Charlotte Browne N.P. / Electronically Signed By: CHARLOTTE BROWNE MEDICAL RECORDS DIRECTOR On: 12/19/2011 07:30 AM Source: [facility] MHSDOLBEYNONRADSYS Document Id: [id number] AND DIE MAKER LEVEL FIVE documented in this encounter Miscellaneous Notes Miscellaneous - Nhi Cortes, L.P.N. - 12/15/2011 10:31 AM CST Pediatric Instrument Technologist Intake/History Pediatric Instrument Technologist Intake/History Entered On: 12/15/2011 10:43 TOOL AND DIE MAKER LEVEL FIVE Performed On: 12/15/2011 10:31 TOOL AND DIE MAKER LEVEL FIVE by NHI SILVA LPN Intake Chief Complaint : sliver in right middle finger Temperature Core : 36.6C(Converted to: 97.9DegF) Peripheral Pulse Rate : 68/min Respiratory Rate : 16/min Heart Rhythm : Regular Systolic Blood Pressure : 106mmHg Diastolic Blood Pressure : 68mmHg NIBP Mean : 81mmHg BP Location : Right upper extremity Blood Pressure Cuff Size : Regular Actual Weight : 59.2kg(Converted to: 130lb 8oz) Weight Source : Standing scale Dosing Weight Clinic : 59.20kg NHI SILVA LPN - 12/15/2011 10:31 TOOL AND DIE MAKER LEVEL FIVE Subjective Pain Symptoms : Yes NHI SILVA LPN - 12/15/2011 10:31 TOOL AND DIE MAKER LEVEL FIVE Pain Pain Assessment Grid Pain 1 Location : Finger Laterality : Right (Comment: middle [NHI SILVA LPN - 12/15/2011 10:31 TOOL AND DIE MAKER LEVEL FIVE] ) Intensity : 6 NHI SILVA LPN - 12/15/2011 10:31 TOOL AND DIE MAKER LEVEL FIVE Dependent Habits Tobacco Use/Currently Using : No Smoking Status : Never smoker Alcohol Use : No NHI SILVA LPN - 12/15/2011 10:31 TOOL AND DIE MAKER LEVEL FIVE Allergy Source: [facility] [employer] Document Id: [id number] TOOL AND DIE MAKER LEVEL FIVE!27 AND DIE MAKER LEVEL FIVE documented in this encounter Plan of Treatment Not on filedocumented as of this encounter Visit Diagnoses Not on filedocumented in this encounter
--- OUTSIDE RECORDS SUMMARY | 2022-08-31 12:43 | XMS_ITS | Encounter Summary ---
:1995 Author Organization [facility] Address [address] [place] [address] Care Team Providers Name Role Phone Unavailable Primary Care Provider Unavailable Encounter Details Date Type Department Care Team Description 03/26/2014 Hospital Encounter HX [facility] Allyn Harrington sa, M.D. [address], [place] [address] (Wo rk) Social History Tobacco Use Types [...] Concentration - - Weight - - Height 164 cm (5' 4.57) 03/26/2014 7:43 AM CDT Body Mass Index - - documented in this encounter Medications at Time of Discharge Medication Sig Dispensed Refills Start Date End Date ETHINYL Take 1 tablet by 0 11/24/2013 08/08/20 18 ESTRADIOL/DROSPIRENONE mouth daily. (DROSPIRENONE-ETHINYL ESTRADIOL ORAL) documented as of this encounter Procedure Notes Chivo Carter R.T.(Melanie), Jus(R)(MR) - 03/26/2014 9:25 AM CDT Peripheral IV Peripheral IV Entered On: 03/26/2014 9:25 CDT Performed On: 03/26/2014 9:25 CDT by CHIVO CARTER ARRSanto Peripheral IV Peripheral IV Assess/Intervention Grid Peripheral IV #1 IV Activity : Start Number of Attempts : 1 Date of Insertion : 03/26/2014 CDT IV Site : Antecubital Laterality : Right Catheter Size : 23 Catheter Type : Butterfly Site Condition : No complications CHIVO CARTER ARRT - 03/26/2014 9:25 CDT Source: [employer] Document Id: [id number] CDT!12 documented in this encounter Plan of Treatment Not on filedocumented as of this encounter Visit Diagnoses Not on filedocumented in this encounter
--- OUTSIDE RECORDS SUMMARY | 2022-08-31 12:43 | XMS_ITS | Encounter Summary ---
:1995 Author Organization [facility] Address [address] [place] [address] Care Team Providers Name Role Phone Unavailable Primary Care Provider Unavailable Encounter Details Date Type Department Care Team Description 09/30/2013 Hospital Encounter HX [facility], [place] [address] [place] [address] [phone] (Wo rk) Social History Tobacco Use Types [...] Sign Reading Time Taken Comments Blood Pressure 112/80 09/30/2013 11:20 PM EXCELSIOR MACHINE TENDER Pulse 87 09/30/2013 6:35 PM EXCELSIOR MACHINE TENDER Temperature - - Respiratory Rate 18 09/30/2013 11:20 PM EXCELSIOR MACHINE TENDER Oxygen Saturation - - Inhaled Oxygen Concentration - - Weight - - Height - - Body Mass Index - - documented in this encounter Discharge Summaries Renetta Canales RJuliaNJulia - 09/30/2013 11:23 PM CST ED Depart Summary [facility] Emergency Department Clinical Discharge Summary PERSON INFORMATION Name LAUREL CARABALLO Age 18 Years 1995 12:00 AM Sex Female Language Salvadorean PCP PCP, UNASSIGNED - [place] Marital Status Single Visit Id Visit Reason Headache; migraine Specialty Enc Type Emergency Med Service Emergency Medicine Referred by Sylvain JETER ED Discharge 09/30/2013 11:22 PM Tracking Id [id number] Checkout 09/30/2013 11:22 PM Checkin 09/30/2013 6:28 PM Acuity 3 -Urgent Dispo Type * Discharged to Home or Self Care Arrival 09/30/2013 6:28 PM Reg Status Complete LOS 000 04:54 Address: [address] [place] [phone] Comment: PROVIDER INFORMATION Provider Role Provider Contact Time RU GAITAN ASSISTANT HOUSEKEEPING MANAGER Nurse 09/30/13 19:39 RENETTA CANALES RN ED Nurse 09/30/13 19:39 ANAHY ROMERO DO ED Provider 09/30/13 19:48 HUMBERTO JO ED Sql Application Developer 09/30/13 20:00 DIAGNOSIS Migraine headache 346.90 Comment: PATIENT EDUCATION INFORMATION Instructions: HEADACHE, Migraine (Classical) Follow up: With: Address: When: [facility] Specialty [facility] - Neurology [facility], [address] [place] [id number] Business (1) Within As Needed Comments: next available With: Address: When: DIMASSGRACIE Collins MA PCP Within As Needed Comments: Source: [facility] [employer] Document Id: [id number] LSIOR MACHINE TENDER Renetta Canales R.N. - 09/30/2013 11:23 PM CST ED Discharge Instructions [address] [address] Name: LAUREL CARABALLO Date of : 1995 12:00 AM Visit Date: 09/30/2013 6:28 PM [facility] Number: [id number] Address: [address] [place] [phone] Primary Care Provider: LANETTE FIGUEROA MA IMPORTANT: [facility] in [place] would like to thank you for allowing us to assist you with your healthcare needs. The following includes patient education materials and information regarding your injury/illness. Chief Complaint: Headache; migraine Follow-Up Instructions: With: Address: When: [facility] Specialty [facility] - Neurology [facility], [address] [place] [phone] Business (1) Within As Needed Comments: next available With: Address: When: LANETTE Collins MA PCP Within As Needed Comments: Patient Education Materials: [id number] MIGRAINE HEADACHE Migraine headaches are related to changes in blood flow to the brain. This causes throbbing or constant pain on one or both sides of the head. The pain may last from a few hours to several days. There is usually nausea, vomiting, sensitivity to light and sound, and blurred vision. A migraine attack may be triggered by emotional stress, hormone changes during the menstrual cycle, oral contraceptives, alcohol use, certain foods containing tyramine, eye strain, weather changes, missing meals, or too little or too much sleep. HOME CARE FOR THIS HEADACHE: 1) If you were given pain medicine for this headache, do not drive yourself home . Arrange for a ride, instead. When you get home, try to sleep. You should feel much better when you wake up. 2) Migraine headaches may improve with an ice pack on the forehead or at the base of the skull. Heatto the back of your neck may relieve any neck spasm. 3) Drink only clear liquids or eat a very light diet to avoid nausea/vomiting until symptoms improve. PREVENTING FUTURE HEADACHES: 1) Pay attention to those factors that seem to trigger your headache. Try to avoid them when you can. If you have frequent headaches, it is useful to keep a diary of what you were doing, feeling or eating in the hours before each attack. Show this to your doctor to help find the cause of your headaches. a) If you feel that stress is a factor in your headaches, look at the sources of stress in your life. Find ways to release the build-up of those stresses by using regular exercise, relaxation methods (yoga, meditation), bio-feedback or simply taking time-out for yourself. For more information about this, consult your doctor or go to a local bookstore and review books and tapes on this subject. b) Tyramine is a substance present in the following foods : chocolate, yogurt, all cheeses except cottage cheese and cream cheese. smoked or pickled fish and meat (including kay, caviar, bologna, pepperoni, salami), liver, avocados, bananas, figs, raisins, and red wine. Be aware that these foods may trigger a migraine in some persons. Try taking these foods out of your diet for 1-2 months to see if this reduces headache frequency. TREATING FUTURE ATTACKS: 1) At the first sign of a headache, take time out if possible. Find a quiet, dark, comfortable placeto sit or lie down. Let yourself relax or sleep. 2) An ice pack on the forehead or area of greatest pain may help. If you are having muscle spasm andtightness of the neck, a heating pad and massage to this area may be helpful. 3) If you have been prescribed a medicine to stop a migraine headache, use this at the very first warning sign of the headache (aura or initial pain) for best results. FOLLOW UP with your doctor if the headache is not better within the next 24 hours. If you have frequent headaches you should discuss a treatment plan with your primary care doctor. Ask if you can have medicine to take at home the next time you get a bad headache. Poorly controlled chronic headaches may require a referral to a neurologist (headache specialist). GET PROMPT MEDICAL ATTENTION if any of the following occur: ?? Your head pain gets worse, or does not improve within 24 hours ?? Repeated vomiting (cant keep liquids down) ?? Sinus or ear or throat pain (not already reported) ?? Fever of 100.4?? F (38?? C) or higher, or as directed by your healthcare provider ?? Stiff neck ?? Extreme drowsiness, confusion or fainting ?? Dizziness, vertigo (dizziness with spinning sensation) ?? Weakness of an arm or leg or one side of the face Difficulty with speech or vision ?? [id number] [place] [address]. All rights reserved. This information is not intended as a substitute for professional medical care. Always follow your healthcare professional's instructions. ED Tests and Procedures: Order Status CT Head w/o contrast Completed Discharge Prescriptions & Home Medications: Medication/Strength Dose Route Frequency Indications/Special Instructions/Comments/Notes prochlorperazine (Compazine 10 mg oral tablet) 10 mg Oral once a day as needed for Headache albuterol (albuterol 90 mcg/inh inhalation aerosol) 2 puff(s) Inhalation four times a day as needed for Shortness of breath / Wheezing Misc Prescription (Misc Prescription) control po daily *budesonide-formoterol (Symbicort 160mcg-4.5mcg/inh) * You have let us know that you are not taking this medication as listed. Please talk with your primary care provider or the health care provider who prescribed the medication as soon as possible. Comment: Attention: If you have any medications at home not on this list, DO NOT take them until you contact your provider for clarification. Medication Reconciliation: Reconciliation is a process of identifying the most accurate list of all medications a patient is taking - including name, dosage, frequency, and route - and using this list to provide to the patient information about how to take those medications. LAUREL CARABALLO or designee has reviewed the home medications you have listed with us. Review the following instructions: You have NOT received any prescriptions and you have told us you are not currently taking any home medications You have NOT received any prescriptions. You have been provided a discharge medications list and you may CONTINUE taking your medications as previously prescribed by your regular providers. You have received the listed prescriptions and BEGIN all listed prescriptions as directed. Since you have listed no home medications, please check with your family doctor if you are taking any other medications. You have received the listed prescriptions and BEGIN all listed prescriptions as directed. Youhave been provided a discharge medications list and you may CONTINUE all home medications as previously prescribed by your regular providers. You have received the listed prescriptions and BEGIN all listed prescriptions as directed. Youhave been provided a discharge medications list. The following CHANGES have been made to your medication list; Otherwise, CONTINUE all home medications as previously prescribed by your regular provider. IMPORTANT: We examined and treated you today [...] arrange a ride home with a responsible republican. IILYA MARY MONICA , or responsible republican have received this information and my questions have been answered. I have discussed any challenges I see with this plan with the nurse or physician. Patient Signature or Responsible Constitution Party/Relationship Date Time Provider Signature Date Time Medication Reconciliation: Reconciliation is a process of identifying the most accurate list of all medications a patient is taking - including name, dosage, frequency, and route - and using this list to provide to the patient information about how to take those medications. LAUREL CARABALLO or geovanni has reviewed the home medications you have listed with us. Review the following instructions: You have NOT received any prescriptions and you have told us you are not currently taking any home medications You have NOT received any prescriptions. You have been provided a discharge medications list and you may CONTINUE taking your medications as previously prescribed by your regular providers. You have received the listed prescriptions and BEGIN all listed prescriptions as directed. Since you have listed no home medications, please check with your family doctor if you are taking any other medications. You have received the listed prescriptions and BEGIN all listed prescriptions as directed. Youhave been provided a discharge medications list and you may CONTINUE all home medications as previously prescribed by your regular providers. You have received the listed prescriptions and BEGIN all listed prescriptions as directed. Youhave been provided a discharge medications list. The following CHANGES have been made to your medication list; Otherwise, CONTINUE all home medications as previously prescribed by your regular provider. IMPORTANT: We examined and treated you today [...] arrange a ride home with a responsible republican. I, ILYA, LAUREL CAZARES , or responsible republican have received this information and my questions have been answered. I have discussed any challenges I see with this plan with the nurse or physician. Patient Signature or Responsible Constitution Party/Relationship Date Time Provider Signature Date Time Source: [employer] Document Id: [id number] LSIOR MACHINE TENDER documented in this encounter ED Notes Renetta Canales R.N. - 09/30/2013 11:21 PM CST ED Disposition Summary ED Disposition Summary Entered On: 09/30/2013 23:21 EXCELSIOR MACHINE TENDER Performed On: 09/30/2013 23:21 EXCELSIOR MACHINE TENDER by RENETTA CANALES RN ED Disposition Summary Accompanied By : Mother Mode of Discharge : Wheelchair Transportation : Private vehicle Printed Discharge Instructions Given to Patient : Yes Patient Status at Discharge from ED : Improved RENETTA CANALES RN - 09/30/2013 23:21 EXCELSIOR MACHINE TENDER Source: [employer] Document Id: [id number] EXCELSIOR MACHINE TENDER!7 LSIOR MACHINE TENDER Renetta Canales R.N. - 09/30/2013 11:21 PM CST ED Education ED Education Entered On: 09/30/2013 23:21 EXCELSIOR MACHINE TENDER Performed On: 09/30/2013 23:21 EXCELSIOR MACHINE TENDER by RENETTA CANALES RN Education ED Education Grid Topics : Discharge instructions/Medication list, Pain management, Plan of care, When to call health care provider Individuals Taught : Patient, Parent Barriers to Learning : None evident Teaching Method : Explanation RENETTA CANALES RN - 09/30/2013 23:21 EXCELSIOR MACHINE TENDER [facility] Document Id: [id number] EXCELSIOR MACHINE TENDER!8 LSIOR MACHINE TENDER Renetta Canales R.N. - 09/30/2013 11:21 PM CST ED Pain Assessment ED Pain Assessment Entered On: 09/30/2013 23:21 EXCELSIOR MACHINE TENDER Performed On: 09/30/2013 23:21 EXCELSIOR MACHINE TENDER by RENETTA CANALES RN Pain Assessment Pain Symptoms : Yes Pain Medication Requested : No RENETTA CANALES RN - 09/30/2013 23:21 EXCELSIOR MACHINE TENDER Source: [facility] [employer] Document Id: [id number] EXCELSIOR MACHINE TENDER!4 LSIOR MACHINE TENDER Renetta Canales R.N. - 09/30/2013 11:20 PM CST ED Treatments and Procedures ED Treatments and Procedures Entered On: 09/30/2013 23:21 EXCELSIOR MACHINE TENDER Performed On: 09/30/2013 23:20 EXCELSIOR MACHINE TENDER by RENETTA CANALES RN Peripheral IV Peripheral IV Assess/Intervention Grid Peripheral IV #1 IV Activity : Discontinue Number of Attempts : 4 Date of Insertion : 09/30/2013 EXCELSIOR MACHINE TENDER IV Site : Wrist Laterality : Left Catheter Size : 22 RENETTA CANALES RN - 09/30/2013 23:20 EXCELSIOR MACHINE TENDER Source: [facility] [employer] Document Id: [id number] EXCELSIOR MACHINE TENDER!10 LSIOR MACHINE TENDER Renetta Canales R.N. - 09/30/2013 11:00 PM CST ED Nurse Reassess ED Nurse Reassess Entered On: 09/30/2013 23:14 EXCELSIOR MACHINE TENDER Performed On: 09/30/2013 23:00 EXCELSIOR MACHINE TENDER by RENETTA CANALES RN Pain Assessment Pain Symptoms : Yes RENETTA CANALES RN - 09/30/2013 23:13 EXCELSIOR MACHINE TENDER Pain Pain Assessment Grid Pain 1 Location : Head Intensity : 2 RENETTA CANALES RN - 09/30/2013 23:13 EXCELSIOR MACHINE TENDER Neuro Reassess Last Well Time Known : Not applicable Orientation : Oriented x 3 Characteristics of Speech : Clear Level of Consciousness : Alert Neuro Patient Stated Symptoms : Headache Neuro Note : pt sleeping soundly, arousable and states that HUBBARD main has decreased. VS WNL. mother remains at bedside. IVFs complete. plan for discharge. RENETTA CANALES RN - 09/30/2013 23:13 EXCELSIOR MACHINE TENDER Source: [employer] Document Id: [id number] EXCELSIOR MACHINE TENDER!15 LSIOR MACHINE TENDER Renetta Canales R.N. - 09/30/2013 10:00 PM CST ED Nurse Reassess ED Nurse Reassess Entered On: 09/30/2013 23:13 EXCELSIOR MACHINE TENDER Performed On: 09/30/2013 22:00 EXCELSIOR MACHINE TENDER by RENETTA CANALES RN Pain Assessment Pain Symptoms : Yes RENETTA CANALES RN - 09/30/2013 23:11 EXCELSIOR MACHINE TENDER Neuro Reassess Last Well Time Known : Not applicable Orientation : Oriented x 3 Characteristics of Speech : Clear Level of Consciousness : Alert Neuro Patient Stated Symptoms : Headache Neuro Note : IVFs infusing. HUBBARD continues, IV meds given. VS stable. mother at bedside. RENETTA CANALES RN - 09/30/2013 23:11 EXCELSIOR MACHINE TENDER [facility]: [facility] [employer] Document Id: [id number] EXCELSIOR MACHINE TENDER!10 LSIOR MACHINE TENDER Renetta Canales R.N. - 09/30/2013 10:00 PM CST ED Treatments and Procedures ED Treatments and Procedures Entered On: 09/30/2013 23:20 EXCELSIOR MACHINE TENDER Performed On: 09/30/2013 22:00 EXCELSIOR MACHINE TENDER by RENETTA CANALES RN Peripheral IV Peripheral IV Assess/Intervention Grid Peripheral IV #1 IV Activity : Start Number of Attempts : 4 Date of Insertion : 09/30/2013 EXCELSIOR MACHINE TENDER IV Site : Wrist Laterality : Left Catheter Size : 22 RENETTA CANALES RN - 09/30/2013 23:20 EXCELSIOR MACHINE TENDER [facility] Document Id: [id number] EXCELSIOR MACHINE TENDER!10 LSIOR MACHINE TENDER Renetta Canales R.N. - 09/30/2013 8:45 PM CST ED Nurse Reassess ED Nurse Reassess Entered On: 09/30/2013 23:11 EXCELSIOR MACHINE TENDER Performed On: 09/30/2013 20:45 EXCELSIOR MACHINE TENDER by RENETTA CANALES RN Pain Assessment Pain Symptoms : Yes Pain Medication Requested : Yes RENETTA CANALES RN - 09/30/2013 23:10 EXCELSIOR MACHINE TENDER Pain Pain Assessment Grid Pain 1 Location : Head Intensity : 8 RENETTA CANALES RN - 09/30/2013 23:10 EXCELSIOR MACHINE TENDER Neuro Reassess Last Well Time Known : Not applicable Orientation : Oriented x 3 Characteristics of Speech : Clear Level of Consciousness : Alert Neuro Patient Stated Symptoms : Headache Neuro Note : HUBBARD pain continues. pt to CT. plan to establish IV and give meds/ fluids. RENETTA CANALES RN - 09/30/2013 23:10 EXCELSIOR MACHINE TENDER [facility] Document Id: [id number] EXCELSIOR MACHINE TENDER!16 LSIOR MACHINE TENDER Anahy Romero M.D. - 09/30/2013 8:15 PM CST Headache Patient: LAUREL CARABALLO Age: 18 years Sex: Female : 1995 Author: ANAHY ROMERO DO Attachments: None Associated Diagnosis: Migraine headache 346.90 Basic Information Time seen: Date 09/30/2013. History source: Patient. Arrival mode: Private vehicle. History limitation: None. Additional information: Chief Complaint from Nursing Triage Note : Chief Complaint Description. 09/30/2013 18:35 EXCELSIOR MACHINE TENDER Chief Complaint Description states treated in ed last pm wiith migraine headache. headache worsening again, took sumatriptan at 1600 plus tylenol and ibuprofen today with no relief. also c/o nausea, seeing black spots. 09/29/2013 19:47 EXCELSIOR MACHINE TENDER Chief Complaint Description pt. c/o migraines since aug. states they have been getting worse the last few weeks. went to the dr. today and was given 50mg imitrex with little relief. c/o nausea. states headache is frontal. c/o photophobia. History of Present Illness The patient presents with headache and migraine. The onset was ~1 month. The course/duration of symptoms is constant and fluctuating in intensity. Location: frontal. Radiating pain: none. The character of symptoms is achy. The degree at onset was minimal. The degree at maximum was moderate. The degree at present is moderate. There are exacerbating factors including light and noise. The relieving factor is none. Risk factors consist of none. Prior episodes: none. Therapy today: prescription medications including Imitrex. Preceding symptoms: none. Associated symptoms: nausea and denies vomiting. Patient seen in this ED on 09/29 and reports migraine HUBBARD over the last month. She was treated w/ Imitrex at at that time as well prior to ED visit and again used this w/ little relief of sxs. Patient reports sxs are the same w/ the addition of bilateral visual field changes and is seeing little blackspots. Review of Systems Constitutional symptoms: No fever or no chills. Skin symptoms: Negative except as documented in HPI. Eye symptoms: visual field changes bilaterally. ENMT symptoms: Negative except as documented in HPI. Respiratory symptoms: Negative except as documented in HPI. Cardiovascular symptoms: Negative except as documented in HPI. Gastrointestinal symptoms: Nausea, but no vomiting. Genitourinary symptoms: Negative except as documented in HPI. Musculoskeletal symptoms: Negative except as documented in HPI. Neurologic symptoms: Headache, but no numbness, no tingling or no weakness. Psychiatric symptoms: Negative except as documented in HPI. Endocrine symptoms: Negative except as documented in HPI. Hematologic/Lymphatic symptoms: Negative except as documented in HPI. Allergy/immunologic symptoms: Negative except as documented in HPI. Health Status Allergies: . Allergic Reactions (Selected) Severity Not Documented Codeine- Vomiting. Past Medical/ Family/ Social History Surgical history: . Culture, chlamydia, any source (25318) in 2011 at 17 Years. 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 Tonsillectomy and adenoidectomy; younger than age 12 (77494) in 2001 at 7 Years. Myringotomy ([id number]) in 1995 at 1 Years. Family history: . Asthma Brother (Marshal) Hypercholesterolemia Father (Jeremy) Physical Examination Vital Signs: Vital Signs, 09/30/2013 19:59 EXCELSIOR MACHINE TENDER Pulse SpO2 77 /min SpO2 99 % Systolic Blood Pressure 116 mmHg Diastolic Blood Pressure 72 mmHg Mean Arterial Pressure 89 mmHg 09/30/2013 18:35 EXCELSIOR MACHINE TENDER Temperature Core 36.5 DegC Peripheral Pulse Rate 87 /min Respiratory Rate 18 /min SpO2 97 % Systolic Blood Pressure 126 mmHg Diastolic Blood Pressure 80 mmHg Mean Arterial Pressure 95 mmHg 09/29/2013 21:49 EXCELSIOR MACHINE TENDER Pulse SpO2 86 /min SpO2 99 % Systolic Blood Pressure 114 mmHg Diastolic Blood Pressure 66 mmHg Mean Arterial Pressure 79 mmHg 09/29/2013 21:12 EXCELSIOR MACHINE TENDER Pulse SpO2 73 /min SpO2 98 % Systolic Blood Pressure 105 mmHg Diastolic Blood Pressure 65 mmHg Mean Arterial Pressure 79 mmHg 09/29/2013 20:46 EXCELSIOR MACHINE TENDER Pulse SpO2 80 /min SpO2 99 % Systolic Blood Pressure 106 mmHg Diastolic Blood Pressure 68 mmHg Mean Arterial Pressure 77 mmHg 09/29/2013 19:47 EXCELSIOR MACHINE TENDER Temperature Core 36.7 DegC Peripheral Pulse Rate 72 /min Respiratory Rate 20 /min SpO2 99 % Systolic Blood Pressure 109 mmHg Diastolic Blood Pressure 76 mmHg Mean Arterial Pressure 87 mmHg BP Location Right upper SpO2. 09/30/2013 19:59 EXCELSIOR MACHINE TENDER SpO2 99 % 09/30/2013 18:35 EXCELSIOR MACHINE TENDER SpO2 97 % 09/29/2013 21:49 EXCELSIOR MACHINE TENDER SpO2 99 % 09/29/2013 21:12 EXCELSIOR MACHINE TENDER SpO2 98 % 09/29/2013 20:46 EXCELSIOR MACHINE TENDER SpO2 99 % 09/29/2013 19:47 EXCELSIOR MACHINE TENDER SpO2 99 % General: Alert and no acute distress. Skin: Warm, dry and intact. Head: Normocephalic and atraumatic. Eye: Pupils are equal, round and reactive to light and normal conjunctiva. Cardiovascular: Regular rate and rhythm. Respiratory: Lungs are clear to auscultation, respirations are non-labored, breath sounds are equal and Symmetrical chest wall expansion. Gastrointestinal: Soft and Nontender. Neurological: Alert and oriented to person, place, time, and situation. Psychiatric: Cooperative and appropriate mood & affect. Medical Decision Making Documents reviewed:Emergency department nurses' notes. OrdersLaunch Orders. Pharmacy: Saline bolus (Order Processing): 1,000 mL, IVPB, Once ketorolac (Order Processing): 30 mg, IV Push, Once diphenhydrAMINE (Order Processing): 50 mg, IV Push, Once promethazine (Order Processing): 12.5 mg, IV Push, Once Radiology: CT Head w/o contrast (Order Processing): 09/30/2013 20:30 EXCELSIOR MACHINE TENDER, worsening headaches, Stat, Patient Bed, Once, 09/30/2013 20:30 EXCELSIOR MACHINE TENDER, MAIJ ED Radiology results:Computed tomography, HEAD, reviewed radiologist's report, interpretation: Multipleaxial scans of the brain were obtained without IV contrast, demonstrating the brain parenchyma to be normal in appearance, with no intracranial hemorrhage or evidence of an acute stroke. The ventricles are normal in size shape and position. There is no shift in the midline structures or other evidence of significant mass effect. IMPRESSION: Normal CT of the brain. Signature Line Final Dictated: 09/30/2013 9:01 pm JEREMY ORO MD. Reexamination/ Reevaluation Notes: Headache resolved and she is resting comfortably. Impression and Plan Diagnosis Migraine headache 346.90 (Discharge, Emergency medicine, Medical) Plan Condition: Improved, Stable. Disposition: Discharged: Time 09/30/2013 22:56:00, to home. Prescriptions: Prescription Absorption And Adsorption Engineer. Patient Care: Discharge ED Patient (Order Processing): 09/30/2013 22:56 EXCELSIOR MACHINE TENDER, Once Pharmacy: Compazine 10 mg oral tablet (Prescribe): 10 mg, 1 tab(s), PO, Daily, 12 tab(s), PRN, Headache Patient was given the following educational materials: HEADACHE, Migraine (Classical). Follow up with: UNASSIGNED - [place] PCP Within As Needed; [facility] - Neurology WithinAs Needed next available. Counseled: Patient, Regarding diagnosis, Regarding diagnostic results, Regarding treatment plan, Regarding prescription, Patient indicated understanding of instructions. Notes: charted by scribe: Noble Parada for Dr. Romero. Electronically Signed By: ANAHY ROMERO DO On: 10/01/2013 02:02 AM Modified by and Electronically Signed by: ANAHY ROMERO DO On: 09/30/2013 08:30 PM Source: [facility] [employer] Document Id: [id number]} LSIOR MACHINE TENDER Renetta Canales R.N. - 09/30/2013 7:45 PM CST ED Primary Assessment Document Has Been Updated ED Primary Assessment Entered On: 09/30/2013 19:56 EXCELSIOR MACHINE TENDER Performed On: 09/30/2013 19:45 EXCELSIOR MACHINE TENDER by RENETTA CANALES RN Reason For Visit (As Of: 09/30/2013 19:56:08 EXCELSIOR MACHINE TENDER) Problems(Active) Asthma NOS (493.90) (ICD-9-CM :493.90 ) Name of Problem: Asthma NOS (493.90) ; Recorder: JUDI ALVARENGA III, MD; Confirmation: Confirmed ; Classification: Medical ; Code: 493.90 ; Last Updated: 11/23/2012 9:29 EXCELSIOR MACHINE TENDER ; Life Cycle Date: 11/23/2012 ; Life Cycle Status: Active ; Vocabulary: ICD-9-CM Asthma, Unspecified (ICD-9-CM :493.90 ) Name of Problem: Asthma, Unspecified ; Recorder: YVON ZHOU RN; Confirmation: Confirmed ; Classification: Nursing ; Code: 493.90 ; Contributor System: Systems Integration ; Last Updated: 10/30/2012 13:00 EXCELSIOR MACHINE TENDER ; Life Cycle Date: 10/30/2012 ; Life Cycle Status: Active ; Responsible Provider: JOHNNIE ZHOU RN; Vocabulary: ICD-9-CM Diagnoses(Active) Headache Date: 09/30/2013 ; Diagnosis Type: Reason For Visit ; Confirmation: Complaint of ; ClinicalDx: Headache ; Classification: Medical ; Clinical Service: Emergency medicine ; Code: PNED ; Probability: 0 ; Diagnosis Code: [id number] Triage Information Given By : Patient, Mother Accompanied By : Mother Mode of Arrival ED : Private vehicle, Ambulatory Track : Medical Languages : Salvadorean GCS Assessed : Yes Treatments Prior to Arrival : Home treatments RENETTA CANALESMary BUCHANAN - 09/30/2013 19:47 EXCELSIOR MACHINE TENDER Shyanne Coma Eye Opening Response Java Center : Spontaneously Best Verbal Response Shyanne : Oriented Best Motor Response Java Center : Obeys simple commands Java Center Coma Score : 15 NOLBERTORENETTA CHANEL - 09/30/2013 19:47 EXCELSIOR MACHINE TENDER Pain Assessment Pain Symptoms : Yes Pain Medication Requested : Yes RENETTA CANALES - 09/30/2013 19:47 EXCELSIOR MACHINE TENDER Pain Pain Assessment Grid Pain 1 Location : Head Intensity : 10 RENETTA CANALES CHANEL - 09/30/2013 19:47 EXCELSIOR MACHINE TENDER Respiratory Airway : Patent Respirations : Unlabored Respiratory Pattern : Regular Oxygen Therapy : Room air RENETTA CANALES - 09/30/2013 19:47 EXCELSIOR MACHINE TENDER Cardiovascular Heart Rhythm : Regular Skin Color : Normal for ethnicity Skin Description : Dry Skin Temperature : Warm Cardiovascular Detailed Assessment : Yes NOLBERTORENETTAMary BUCHANAN - 09/30/2013 19:47 EXCELSIOR MACHINE TENDER CV Detailed CV Patient Stated Symptoms : None Nail Bed Color : [place] Capillary Refill : Less than 2 seconds NOLBERTORENETTAE 09/30/2013 19:47 EXCELSIOR MACHINE TENDER Neurological Last Well Time Known : Not applicable Level of Consciousness : Alert Orientation : Oriented x 3 Characteristics of Speech : Clear Neuro Patient Stated Symptoms : Headache Neuro Detailed Assessment : Yes NOLBERTORENETTAMary BUCHANAN - 09/30/2013 19:47 EXCELSIOR MACHINE TENDER Neuro Detailed Neuro Note : pt c/o headache. seen here last evening for migraine. took imitrex, ibuprofen and tylenol for pain today. no relief. HUBBARD accompanied by nausea, light sensitivity RENETTA CANALES RN - 09/30/2013 19:47 EXCELSIOR MACHINE TENDER ED Psychosocial Affect/Behavior : Calm, Cooperative, Appropriate Domestic Abuse Concerns : None RENETTA CANALES RN - 09/30/2013 19:47 EXCELSIOR MACHINE TENDER Gastrointestinal Nutrition ED : Adequate RENETTA CANALES RN - 09/30/2013 19:47 EXCELSIOR MACHINE TENDER Musculoskeletal Fall Prevention Education Provided : Yes RENETTA CANALES RN - 09/30/2013 19:47 EXCELSIOR MACHINE TENDER Social Habits Tobacco Use/Currently Using : No Exposure to Tobacco Smoke : Care provider denies smoking in home Smoking Status : Never smoker RENETTA CANALES RN - 09/30/2013 19:47 EXCELSIOR MACHINE TENDER Recreational Drug Use Grid Drug Use : None RENETTA CANALES RN - 09/30/2013 19:47 EXCELSIOR MACHINE TENDER Source: [facility] [employer] Document Id: [id number] EXCELSIOR MACHINE TENDER!60 LSIOR MACHINE TENDER Jennifer Bowman R.N. - 09/30/2013 6:35 PM CST ED Triage Assessment Document Has Been Updated ED Triage Assessment Entered On: 09/30/2013 18:38 EXCELSIOR MACHINE TENDER Performed On: 09/30/2013 18:35 EXCELSIOR MACHINE TENDER by JENNIFER BOWMAN RN Reason For Visit (As Of: 09/30/2013 18:39:47 EXCELSIOR MACHINE TENDER) Problems(Active) Asthma NOS (493.90) (ICD-9-CM :493.90 ) Name of Problem: Asthma NOS (493.90) ; Recorder: JUDI ALVARENGA III, MD; Confirmation: Confirmed ; Classification: Medical ; Code: 493.90 ; Last Updated: 11/23/2012 9:29 EXCELSIOR MACHINE TENDER ; Life Cycle Date: 11/23/2012 ; Life Cycle Status: Active ; Vocabulary: ICD-9-CM Asthma, Unspecified (ICD-9-CM :493.90 ) Name of Problem: Asthma, Unspecified ; Recorder: YVON ZHOU RN; Confirmation: Confirmed ; Classification: Nursing ; Code: 493.90 ; Contributor System: Systems Integration ; Last Updated: 10/30/2012 13:00 EXCELSIOR MACHINE TENDER ; Life Cycle Date: 10/30/2012 ; Life Cycle Status: Active ; Responsible Provider: JOHNNIE ZHOU RN; Vocabulary: ICD-9-CM Diagnoses(Active) Headache Date: 09/30/2013 ; Diagnosis Type: Reason For Visit ; Confirmation: Complaint of ; ClinicalDx: Headache ; Classification: Medical ; Clinical Service: Emergency medicine ; Code: PNED ; Probability: 0 ; Diagnosis Code: [id number] Triage GCS Assessed : Yes GOKULALEXJENNIFER Naima BUCHANAN - 09/30/2013 18:39 EXCELSIOR MACHINE TENDER Chief Complaint Description : states treated in ed last pm wiith migraine headache. headache worsening again, took sumatriptan at 1600 plus tylenol and ibuprofen today with no relief. also c/o nausea, seeing black spots. Information Given By : Patient Accompanied By : Mother Mode of Arrival ED : Private vehicle, Ambulatory Track : Medical Languages : Salvadorean Vital Signs Assessed : Yes Treatments Prior to Arrival : Home treatments GOKULMANJUJENNIFER LEAL Naima BUCHANAN - 09/30/2013 18:35 EXCELSIOR MACHINE TENDER Vital Signs Temperature Core : 36.5 DegC(Converted to: 97.7 DegF) Peripheral Pulse Rate : 87 /min Respiratory Rate : 18 /min Systolic Blood Pressure : 126 mmHg Diastolic Blood Pressure : 80 mmHg NIBP Mean : 95 mmHg SpO2 : 97 % Oxygen Therapy : Room air NOAHJENNIFER Naima BUCHANAN - 09/30/2013 18:35 EXCELSIOR MACHINE TENDER Shyanne Coma Eye Opening Response Shyanne : Spontaneously Best Verbal Response Java Center : Oriented Best Motor Response Java Center : Obeys simple commands Java Center Coma Score : 15 GOKULMANJUJENNIFER LEAL Naima BUCHANAN - 09/30/2013 18:39 EXCELSIOR MACHINE TENDER Pain Assessment Pain Symptoms : Yes VIOLETTEJULISSA JENNIFER Naima BUCHANAN - 09/30/2013 18:35 EXCELSIOR MACHINE TENDER Pain Pain Assessment Grid Pain 1 Location : Head Intensity : 10 JENNIFER BOWMAN RN - 09/30/2013 18:35 EXCELSIOR MACHINE TENDER JACQUELINE DCP GENERIC CODE Tracking Group : [facility] ED Tracking Acuity : 3 -Urgent GOKULJENNIFER JOHNSON RN - 09/30/2013 18:35 EXCELSIOR MACHINE TENDER Allergy (As Of: 09/30/2013 18:38:54 EXCELSIOR MACHINE TENDER) Allergies (Active) codeine Estimated Onset Date: Unspecified ; Reactions: vomiting ; Created By: JOHNNIE ZHOU RN; Reaction Status: Active ; Category: Drug ; Substance: codeine ; Type: Allergy ; Updated By: JOHNNIE ZHOU; Reviewed Date: 09/29/2013 21:17 EXCELSIOR MACHINE TENDER ID Screen Drug Resistant Organism : No JENNIFER BOWMAN RN - 09/30/2013 18:35 EXCELSIOR MACHINE TENDER Source: [employer] Document Id: [id number] EXCELSIOR MACHINE TENDER!8 LSIOR MACHINE TENDER documented in this encounter Miscellaneous Notes Miscellaneous - Renetta Canales R.N. - 09/30/2013 11:21 PM CST Valuables/Belongings Valuables/Belongings Entered On: 09/30/2013 23:22 EXCELSIOR MACHINE TENDER Performed On: 09/30/2013 23:21 EXCELSIOR MACHINE TENDER by RENETTA CANALES RN Valuables/Belongings Comment : no personal belongings left in ED upon discharge RENETTA CANALES RN - 09/30/2013 23:21 EXCELSIOR MACHINE TENDER [facility] Document Id: [id number] EXCELSIOR MACHINE TENDER!3 LSIOR MACHINE TENDER Miscellaneous - Renetta Canales R.N. - 09/30/2013 6:28 PM CST Facility Charge Ticket 2.0 11.0 DX Facility Charge Ticket 2.0 11.0 DX Entered On: 09/30/2013 23:22 EXCELSIOR MACHINE TENDER Performed On: 09/30/2013 18:28 EXCELSIOR MACHINE TENDER by RENETTA CANALES RN Facility Charge Ticket 2.0 11.0 DX ED Other Charges : Standard ED Encounter TVL Level Translated RTF : Headache TVL:4 TVL Level for Facility Charge Ticket : Level 4 Arrival Mode Calc : 1 Mode of Arrival ED : Private vehicle, Ambulatory [facility] Mode of Arrival Interpreted : Standard [facility] Process Management : None Order Management RTF : CT / MRI / Ultrasound CT Head w/o contrast,09/30/13 20:30,ANAHY ROMERO DO Completed [facility] Order Management : CT/MRI/Ultrasound 30 Minutes Critical Care : No Nursing Notes RTF : Triage Forms ED Triage Assessment,09/30/13 18:35,JENNIFER BOWMAN RN Nursing Notes ED Primary Assessment,09/30/13 19:45,RENETTA CANALES RN ED Nurse Reassess,09/30/13 23:00,RENETTA CANALES RN ED Nurse Reassess,09/30/13 22:00,RENETTA CANALES RN ED Nurse Reassess,09/30/13 20:45,RENETTA CANALES RN ED Pain Assessment,09/30/13 23:21,RENETTA CANALES RN [facility] Nursing Assessment : Triage and 3-5 nursing assessments [facility] Disposition : Discharge Disposition RTF : discharge [facility] Total Points with Diagnosis Control : 10 [facility] Visit Level : 05559 Level 4 Treatments Prior to Arrival : Home treatments RENETTA CANALES RN - 09/30/2013 23:22 EXCELSIOR MACHINE TENDER [facility] Document Id: [id number] EXCELSIOR MACHINE TENDER!19 LSIOR MACHINE TENDER documented in this encounter Plan of Treatment Not on filedocumented as of this encounter Procedures Procedure Name Priority Date/Time Associated Diagnosis Comme nts CT HEAD WITHOUT IV Routine 09/30/2013 8:43 PM Res ults for this CONTRAST EXCELSIOR MACHINE TENDER procedure are i n the results section. documented in this encounter Results CT Head without IV Contrast (09/30/2013 8:43 PM EXCELSIOR MACHINE TENDER) Anatomical Region Laterality Modality Head N/A Computed Tomography Specimen (Source) Anatomical Collection Method Collection Time Re ceived Time Location / / Volume Laterality 09/30/2013 8:43 PM EXCELSIOR MACHINE TENDER Addenda Addendum by Provider, Kasey Sellers 09/30/2013 8:43 PM EXCELSIOR MACHINE TENDER RAD^^^MA CT HEAD WO CONTRAST 09/30/2013 20:43:00 Impressions 09/30/2013 9:02 PM EXCELSIOR MACHINE TENDER Normal CT of the brain. Narrative 09/30/2013 9:02 PM EXCELSIOR MACHINE TENDER EXAM: CT Head w/o contrast INDICATION: worsening headaches Multiple axial scans of the brain were o btained without IV contrast, demonstrating the brain parenchyma to be normal in appearance, with no intracranial hemorrhage or evidence o f an acute stroke. The ventricles are normal in size shape and position. There is no shift in the midline structures or other evide nce of significant mass effect. Procedure Note Jeremy Oro M.D. / Provider, Don sheridan M.D. - 03/29/2017 EXAM: CT Head w/o contrast INDICATION: worsening headaches Multiple axial scans of the brain were o btained without IV contrast, demonstrating the brain parenchyma to be normal in appearance, with no intracranial hemorrhage or evidence o f an acute stroke. The ventricles are normal in size shape and position. There is no shift in the midline structures or other evide nce of significant mass effect. IMPRESSION: Normal CT of the brain. Julianne Luu(R) IMG CT PROCEDURES documented in this encounter Visit Diagnoses Not on filedocumented in this encounter
--- OUTSIDE RECORDS SUMMARY | 2022-08-31 12:43 | XMS_ITS | Encounter Summary ---
:[address] [facility] Address [address] [place] [address] Care Team Providers Name Role Phone Unavailable Primary Care Provider Unavailable Encounter Details Date Type Department Care Team Description 02/11/2009 Hospital Encounter HX [facility] CAM INPT/OBSRV Stone-Myrna Zaman M.D. [address] [place], [place] [address] (Wo rk) Social History Tobacco Use Types [...] often do you attend meetings of the to 4 times per yea r 11/23/2021 [...]
--- OUTSIDE RECORDS SUMMARY | 2022-08-31 12:43 | XMS_ITS | Encounter Summary ---
:1995 Author Organization [facility] Address [address] [place] [address] Care Team Providers Name Role Phone Unavailable Primary Care Provider Unavailable Encounter Details Date Type Department Care Team Description 10/04/2008 Hospital Encounter HX [facility] CAM INPT/OBSRV Beth Jordan M.D. [address] [place] [address] (Wo rk) Social History Tobacco Use Types [...]
--- OUTSIDE RECORDS SUMMARY | 2022-08-31 12:43 | XMS_ITS | Encounter Summary ---
:1995 Author Organization [facility] Address [address] [place] [address] Care Team Providers Name Role Phone Unavailable Primary Care Provider Unavailable Encounter Details Date Type Department Care Team Description 11/29/2008 Hospital Encounter HX [facility] CAM INPT/OBSRV Stone-Myrna Zaman M.D. [address] [place], [place] [address] (Wo rk) Social History [...]
--- OUTSIDE RECORDS SUMMARY | 2022-08-31 12:43 | XMS_ITS | Encounter Summary ---
:1995 Author Organization [facility] Address [address] [place] [address] Care Team Providers Name Role Phone Unavailable Primary Care Provider Unavailable Encounter Details Date Type Department Care Team Description 11/24/2013 Hospital Encounter HX [facility] Elicia Urbano, KARL, C.N.P., M. S.N. [address] [place] [address] (Wo rk) Social History Tobacco Use Types [...] Sign Reading Time Taken Comments Blood Pressure 116/72 11/24/2013 2:31 PM DOCUMENT CONTROL SUPERVISOR Pulse 74 11/24/2013 2:31 PM DOCUMENT CONTROL SUPERVISOR Temperature - - Respiratory Rate 12 11/24/2013 2:31 PM DOCUMENT CONTROL SUPERVISOR Oxygen Saturation - - Inhaled Oxygen Concentration - - Weight 64.3 kg (141 lb 12.1 oz) 11/24/2013 2:31 PM DOCUMENT CONTROL SUPERVISOR Height 164 cm (5' 4.57) 11/24/2013 2:31 PM DOCUMENT CONTROL SUPERVISOR Body Mass Index 23.91 11/24/2013 2:31 PM DOCUMENT CONTROL SUPERVISOR documented in this encounter Medications at Time of Discharge Medication Sig Dispensed Refills Start Date End Date ETHINYL Take 1 tablet by 0 11/24/2013 08/08/20 18 ESTRADIOL/DROSPIRENONE mouth daily. (DROSPIRENONE-ETHINYL ESTRADIOL ORAL) documented as of this encounter Progress Notes Brenda Morse, KARL, C.N.P. - 11/24/2013 2:14 PM CST [id number] CHIEF COMPLAINT/REASON FOR VISIT Rash on chest. 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 She is new to our clinic. She is here stating she is concerned about a rash that has developed on her chest over the last couple of days. She is not sure if this started more over the right breast or more on the mid chest area, as when she found it, it was in the mid chest and over to the right breast. It has now spread slightly over to the left as well. She just feels a little off, a little nauseated. She did feel a little hot and cold last night. She describes her rash as burning, warm and itching. She did take some Sudafed as that is all she really had. She did sleep better last night, but did not have any other medication. She took it this morning. She states it did not help any. 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 This was done at [facility] in the [facility]. She did not have any complications regarding that, and is not currently having any breast pain. PAST MEDICAL/SURGICAL HISTORY MEDICAL: Significant for: Asthma. Migraines. SURGICAL: History includes: Tonsil and adenoidectomy. Myringotomy tubes. She did have 2 heel surgeries with a calcanei. Breast surgery in October 2013. FAMILY HISTORY Parents are generally healthy other than allergies. A brother does have asthma and sister with migraines as well. Grandparents with lung cancer, prostate cancer, stroke and depression, as well as complications from anesthesia. MEDICATIONS control pills. Amitriptyline 25 mg daily. Dulera 20/5 two puffs 2 times daily. Occasional Sudafed. VITAL SIGNS Her blood pressure is 116/72, temp of 36.3, heart rate 74, respiratory rate 12. Height 164 cm with aweight of 64.3 kilos, putting her BMI at 24. PHYSICAL EXAMINATION GENERAL: Laurel is a 18-year-old in no acute distress. HEAD: Normocephalic. NECK: Supple without lymphadenopathy. HEART: Sounds S1, S2. No murmur. Equal bilateral radial and dorsalis pedis pulses. LUNG: Sounds are clear throughout with good air exchange. ABDOMEN: Positive bowel sounds. No organomegaly. SKIN: Warm and pink. She is noted to have red, mildly raised confluent patches on her chest, especially onto the right breast <__IM_1: Words cut off/unclear __> chest. The incisions on the breasts are both well healed. No redness or signs of infection. IMPRESSION/REPORT/PLAN Rash. PLAN: Encouraged her to use either Benadryl or Zyrtec. She may use some cream as well. She verbalized understanding. Brenda Morse C.N.P./pos Electronically Signed By: BRENDA MORSE CNP On: 11/30/2013 03:17 PM Source: [facility] [employer] Document Id: [id number] MENT CONTROL SUPERVISOR documented in this encounter Miscellaneous Notes Miscellaneous - Rolo Boyd L.P.N. - 11/24/2013 2:31 PM CST Adult Laboratory Tech Intake/History Adult Laboratory Tech Intake/History Entered On: 11/24/2013 14:34 DOCUMENT CONTROL SUPERVISOR Performed On: 11/24/2013 14:31 DOCUMENT CONTROL SUPERVISOR by ROLO BOYD LPN Intake Chief Complaint : Rash on chest was jsut exposed to shingles Ambulatory Intake Additional Information : Patient just had surgery 11/09/13 Temperature Core : 36.3 DegC(Converted to: 97.3 DegF) (LOW) Peripheral Pulse Rate : 74 /min Respiratory Rate : 12 /min (LOW) Heart Rhythm : Regular Systolic Blood Pressure : 116 mmHg Diastolic Blood Pressure : 72 mmHg NIBP Mean : 87 mmHg BP Location : Right upper extremity Blood Pressure Cuff Size : Regular Height : 164 cm(Converted to: 5 ft 5 inch(es), 64.57 inch(es)) Actual Weight : 64.3 kg(Converted to: 141 lb 12 oz) Weight Source : Standing scale Dosing Weight Clinic : 64.3 kg Clinic BSA : 1.71 Body Mass Index : 23.91 kg/m2 ROLO BOYD LPN - 11/24/2013 14:31 DOCUMENT CONTROL SUPERVISOR General Info Information Given By : Patient Languages : Polish ROLO BOYD LPN - 11/24/2013 14:31 DOCUMENT CONTROL SUPERVISOR Subjective Pain Symptoms : No ROLO BOYD LPN - 11/24/2013 14:31 DOCUMENT CONTROL SUPERVISOR Dependent Habits Tobacco Use/Currently Using : No Exposure to Tobacco Smoke : Care provider denies smoking in home Smoking Status : Never smoker Alcohol Use : No ROLO BOYD LPN - 11/24/2013 14:31 DOCUMENT CONTROL SUPERVISOR Caffeine Use Grid Caffeine Use : Current Type : Soft drinks Frequency : Daily Amount : 1 serving ROLO BOYD LPN - 11/24/2013 14:31 DOCUMENT CONTROL SUPERVISOR Recreational Drug Use Grid Drug Use : None ROLO BOYD LPN - 11/24/2013 14:31 DOCUMENT CONTROL SUPERVISOR Source: [facility] [employer] Document Id: [id number] DOCUMENT CONTROL SUPERVISOR!38 MENT CONTROL SUPERVISOR documented in this encounter Plan of Treatment Not on filedocumented as of this encounter Visit Diagnoses Not on filedocumented in this encounter
--- OUTSIDE RECORDS SUMMARY | 2022-08-31 12:43 | XMS_ITS | Encounter Summary ---
:1995 Author Organization [facility] Address [address] [place] [address] Care Team Providers Name Role Phone Unavailable Primary Care Provider Unavailable Encounter Details Date Type Department Care Team Description 10/31/2007 Hospital Encounter [facility]X [facility] CAM INPT/OBSRV Beth Jordan M.D. [address] [place] [address] (Wo rk) Social History Tobacco Use Types [...]
--- OUTSIDE RECORDS SUMMARY | 2022-08-31 12:43 | XMS_ITS | Encounter Summary ---
:1995 Author Organization [facility] Address [address] [place] [address] Care Team Providers Name Role Phone Unavailable Primary Care Provider Unavailable Encounter Details Date Type Department Care Team Description 08/06/2016 Hospital Encounter [facility]X [facility] Shazia Denny M .D., M.P.H. [address] [place], [place] [phone] (Wo rk) Social History [...] (four) times tablet a day as needed. rizatriptan (for_MAXALT) Take 10 mg by mouth 0 08/08/2018 10 mg tablet See Admin Instructions. documented as of this encounter Nursing Notes Geena Bruner R.N. - 08/06/2016 8:49 AM CDT New Employee Health Screen Patient here for a new employee screen. No significant health history. Quantiferon, Varicella and Hepatitis B titers ordered. Electronically Signed By: GEENA BRUNER RN On: 08/06/2016 08:50 AM Source: [facility] POWERCHART Document Id: [id number] documented in this encounter Plan of Treatment Not on filedocumented as of this encounter Procedures Procedure Name Priority Date/Time Associated Comments Diagnosis HXQUANTIFERON TB-GOLD Routine 08/06/2016 9:05 AM Results for this CDT procedure are i n the results section. HBS ANTIBODY, SERUM Routine 08/06/2016 9:05 AM Re sults for this CDT procedure are i n the results section. VARICELLA-ZOSTER AB, Routine 08/06/2016 9:05 AM R esults for this IGG, S CDT procedure are i n the results section. documented in this encounter Results HXQUANTIFERON TB-GOLD (08/06/2016 9:05 AM CDT) athologist Signature QuantiFERON-TB Negative Negative POWERCHART Gold Result Comment: No interferon-gamma response to M. tuber culosis antigens was detected. Infection with M. tubercul osis is unlikely. A negative result alone does not exclude infection with M. tuberculosis. For detailed information regarding test interpretation see: [email or web address] Clinical+and+Interpretive/02104 HX TB Ag-Nil Result -[place] 0.00 INTU[facility] JOHANA RCHART HX Mitogen Zsg-Grvomr-Whxy >10.00 INTUML POW ERCHART HX Nil Result-[place] 0.03 INTU[facility] POWERCHART Comment: Test Performed by: [place] [id number] Provider Relations Consultant: Phoenix Duran II, M.D., Ph.D. Specimen (Source) Anatomical Collection Method Collection Time Re ceived Time Location / / Volume Laterality Blood 08/06/2016 9:05 AM CDT Shazia Garcia M.D., M.P.H. LAB HISTORICAL ORDERS Performing Organization Address City/State/ZIP Code Phon e Number POWERCHART Hepatitis B Surface, Ab (08/06/2016 9:05 AM CDT) athologist Signature HBs Antibody, Positive POWERCHART S Comment: Patient is considered to be immune to in fection with HBV. REFERENCE VALUE------ Unvaccinated: Negative Vaccinated: Positive HX Hep Bs Ab -[place] 16.3 [facility] Comment: REFERENCE VALUE------ Unvaccinated: <5.0 Vaccinated: >=12.0 Test Performed by: [facility] [address] [place] [id number] Provider Relations Consultant: hPoenix Duran II, M.D., Ph.D. Specimen (Source) Anatomical Collection Method Collection Time Re ceived Time Location / / Volume Laterality Blood 08/06/2016 9:05 AM CDT Shazia Garcia M.D., M.P.H. LAB MICROBIOLOGY - BLOOD O HEATHER Performing Organization Address City/[facility] Code Phon e Number POWERCHART Varicella-Zoster Antibody, IgG (08/06/2016 9:05 AM CDT) P athologist Signature Varicella-Zost Positive POWERCHART er Ab, IgG, S Comment: Results suggest response to immunization or prior exposure to the virus. REFERENCE VALUE------ Vaccinated: Positive (>=1.1 AI) Unvaccinated: Negative (<=0.8 AI) Varicella-Zoster Ab, IgG, S 4.2 PO WERCHART Comment: Test Performed by: [place] [phone] Provider Relations Consultant: Phoenix Duran II, M.D., Ph.D. Specimen (Source) Anatomical Collection Method Collection Time Re ceived Time Location / / Volume Laterality Blood 08/06/2016 9:05 AM CDT Shazia Garcia M.D., M.P.H. LAB MICROBIOLOGY - BLOOD O HEATHER Performing Organization Address City/[facility] Phon e Number POWERCHART documented in this encounter Visit Diagnoses Not on filedocumented in this encounter
--- OUTSIDE RECORDS SUMMARY | 2022-08-31 12:43 | XMS_ITS | Encounter Summary ---
:1995 Author Organization [facility] Address [address] [place] [address] Care Team Providers Name Role Phone Unavailable Primary Care Provider Unavailable Encounter Details Date Type Department Care Team Description 06/29/2014 Hospital Encounter HX [facility] ED Vanesa Mendenhall M.D. [address] [place] [address] [phone] (Wo rk) Social History Tobacco [...] Sign Reading Time Taken Comments Blood Pressure 99/68 06/29/2014 10:24 PM CDT Pulse 58 06/29/2014 10:24 PM CDT Temperature - - Respiratory Rate 16 06/29/2014 10:24 PM CDT Oxygen Saturation - - Inhaled Oxygen Concentration - - Weight - - Height 165 cm (5' 4.96) 06/29/2014 10:24 PM CDT Body Mass Index - - documented in this encounter Discharge Summaries Johnnie Zhou R.N. - 06/29/2014 11:03 PM CDT ED Discharge Instructions [address] [address] Name: LAUREL CARABALLO Date of : 1995 12:00 AM Visit Date: 06/29/2014 8:29 PM [facility] Number: [id number] Address: [address] [place] [phone] Primary Care Provider: PCP, ELSEWHERE IMPORTANT: [facility] in [place] would like to thank you for allowing us to assist you with your healthcare needs. The following includes patient education materials and informationregarding your injury/illness. Diagnosis: Concussion No LOC Active Follow-Up Instructions: With: Address: When: Return to Emergency Department Within As Needed Comments: if worsening symptoms, nausea, vomitting or acute change in vision With: Address: When: ELSEWHERE PCP Within As Needed Comments: Your Upcoming Appointments: Date Time Location Reason Provider No Appointments found Patient Education Materials: [id number] CONCUSSION [w/ wake-up] A concussion occurs when there is a blow to the head with enough force to shake up the brain. This may cause a loss of consciousness (knocked out), but not always. Depending on how hard you hit your head, it will take from a few hours up to a few days to get better. Sometimes symptoms may last a fewmonths or longer (post-concussion syndrome). Initially, it is common to have symptoms of headache, nausea, vomiting or dizziness. You may also notice difficulty concentrating or problems with memory. This is normal. Symptoms should get better as the hours and days go by. Symptoms that worsen could be a sign of a more serious injury (bruise or bleeding in the brain). Therefore, watch for the warning signs below. HOME CARE: 1. During the next 24 hours someone must stay with you. This person should WAKE YOU EVERY TWO HOURS to check for the signs below. 2. If you have swelling of the face or scalp, apply an ice pack (ice cubes in a plastic bag, wrappedin a towel) for 20 minutes every 1-2 hours until the swelling starts to go down. 3. You may use acetaminophen (Tylenol) or ibuprofen (Motrin, Advil) to control pain, unless another pain medicine was prescribed. [NOTE: If you have chronic liver or kidney disease or ever had a stomach ulcer or GI bleeding, talk with your doctor before using these medicines.] Do not use ibuprofen in children under six months of age. 4. For the next 24 hours: o Do not take alcohol, sedatives or medicines that make you sleepy. o Do not drive or operate machinery. o Avoid strenuous activities. No lifting or straining. 5. Do not return to sports or any activity that could result in another head injury until all symptoms are gone and you have been cleared by your doctor. A second head injury before fully recovering from the first one can lead to serious brain injury. FOLLOW UP with your doctor in one week, or as directed. [NOTE: A radiologist will review any X-rays or CT scans that were taken. We will notify you of any new findings that may affect your care.] GET PROMPT MEDICAL ATTENTION if any of the following occur: ?? Repeated vomiting ?? Severe or worsening headache or dizziness ?? Unusual drowsiness, or unable to awaken as usual ?? Confusion or change in behavior or speech, memory loss, blurred vision ?? Convulsion (seizure) ?? Increasing scalp or face swelling ?? Redness, warmth or pus from the swollen area Fluid drainage or bleeding from the nose or ears ?? [phone] [facility], [address] [place] [id number]. All rights reserved. This information is not intended as a substitute for professional medical care. Always follow your healthcare professional's instructions. ED Tests and Procedures: Order Status CT Head w/o contrast Completed Discharge Prescriptions & Home Medications: Medication/Strength Dose Route Frequency Indications/Special Instructions/Comments/Notes rizatriptan (rizatriptan 10 mg oral tablet) 10 mg Oral as directed as needed for Migraine headache ibuprofen (ibuprofen 200 mg oral tablet) 600 mg Oral four times a day as needed for Pain drospirenone-ethinyl estradiol (Loryna oral tablet) 1 tab(s) Oral once a day menses mometasone-formoterol (Dulera 200 mcg-5 mcg/inh inhalation aerosol) 2 puff(s) Inhalation two times aday asthma albuterol (albuterol 90 mcg/inh inhalation aerosol) 2 puff(s) Inhalation four times a day as needed for Shortness of breath / Wheezing Comment: Attention: If you have any medications at home not on this list, DO NOT take them until you contact your provider for clarification. Give a copy of your medication list to your primary care provider. Update your medication list any time medications or doses are changed and carry your medication list at all times in case of emergency. Medication Reconciliation: Reconciliation is a process of [...] arrange a ride home with a responsible green party. ILYA Hair MARY MONICA , or responsible green party have received this information and my questions have been answered. I have discussed any challenges I see with this plan with the nurse or physician. Patient Signature or Responsible Republican/Relationship Date Time Provider Signature Date Time Medication [...] arrange a ride home with a responsible green party. f6 I, LAUREL CARABALLO , or responsible green party have received this information and my questions have been answered. I have discussed any challenges I see with this plan with the nurse or physician. Patient Signature or Responsible Republican/Relationship Date Time Provider Signature Date Time This document has images extracted. Please consider using [employer] for all your patient education needs. Source: [employer] Document Id: [id number] Johnnie Zhou R.N. - 06/29/2014 11:03 PM CDT ED Depart Summary [facility] Emergency Department Clinical Discharge Summary PERSON INFORMATION Name LAUREL CARABALLO Age 19 Years 1995 12:00 AM Sex Female Language Burmese PCP PCP, ELSEWHERE Marital Status Single N [id number] Visit Id Visit Reason Closed head injury without LOC; Hit head Specialty Enc Type Emergency Med Service Emergency Medicine Referred by Track Group [facility] ED Discharge 06/29/2014 10:35 PM Tracking Id [id number] Checkout 06/29/2014 10:35 PM Checkin 06/29/2014 8:29 PM Acuity 4 -Less Urgent Dispo Type * Discharged to Home or Self Care Arrival 06/29/2014 8:29 PM Reg Status LOS 000 02:06 Address: [address] [place] [phone] Comment: PROVIDER INFORMATION Provider Role Provider Contact Time VANESA MENDENHALL MD ED Provider 06/29/14 21:03 JOHNNIE ZHOU MOTOR PATROL OPERATOR Nurse 06/29/14 21:03 DIAGNOSIS Concussion No LOC Active Comment: PATIENT EDUCATION INFORMATION Instructions: CONCUSSION w/ Wake Up Follow up: With: Address: When: Return to Emergency Department Within As Needed Comments: if worsening symptoms, nausea, vomitting or acute change in vision With: Address: When: ELSEWHERE PCP Within As Needed Comments: Source: [employer] Document Id: [id number] documented in this encounter Medications at Time [...] Admin Instructions. documented as of this encounter ED Notes Johnnie Zhou R.N. - 06/29/2014 11:01 PM CDT ED Pain Assessment ED Pain Assessment Entered On: 06/29/2014 23:01 CDT Performed On: 06/29/2014 23:01 CDT by JOHNNIE ZHOU RN Pain Assessment Pain Symptoms : Yes JOHNNIE ZHOU RN - 06/29/2014 23:01 CDT Source: [employer] Document Id: [id number] CDT!3 Johnnie Zhou R.N. - 06/29/2014 11:00 PM CDT ED Disposition Summary ED Disposition Summary Entered On: 06/29/2014 23:00 CDT Performed On: 06/29/2014 23:00 CDT by JOHNNIE ZHOU RN ED Disposition Summary Accompanied By : Father Mode of Discharge : Ambulatory (Comment: refused wheelchair [JOHNNIE ZHOU RN - 06/29/2014 23:00 CDT] ) Transportation : Private vehicle Discharge From ED With : Home Med List Printed Discharge Instructions Given to Patient : Yes Patient Status at Discharge from ED : Improved JOHNNIE ZHOU RN - 06/29/2014 23:00 CDT Source: [employer] Document Id: [id number] CDT!8 Johnnie Zhou R.N. - 06/29/2014 10:25 PM CDT ED Nurse Reassess ED Nurse Reassess Entered On: 06/29/2014 22:26 CDT Performed On: 06/29/2014 22:25 CDT by JOHNNIE ZHOU RN Pain Assessment Pain Symptoms : Yes JOHNNIE ZHOU RN - 06/29/2014 22:25 CDT Pain Pain Assessment Grid Pain 1 Location : Head Laterality : Right Intensity : 9 Time Pattern : Constant Onset : Sudden Quality : Aching, Burning Pain Radiation : No JOHNNIE ZHOU RN - 06/29/2014 22:25 CDT Source: [employer] Document Id: [id number] CDT!13 Vanesa Mendenhall M.D. - 06/29/2014 8:58 PM CDT closed head injury Patient: LAUREL CARABALLO Age: 19 years Sex: Female : 1995 Author: VANESA MENDENHALL MD Attachments: None Associated Diagnosis: Concussion No LOC Active Basic Information Additional information: Chief Complaint from Nursing Triage Note : Chief Complaint Description 06/29/2014 20:52 CDT Chief Complaint Description see triage note 06/29/2014 20:45 CDT Chief Complaint Description 19 year old female presents with dizziness, visual changes, and headache starting at 1300 today after she was bending over and hit right forehead against edge of [email or web address] . History of Present Illness The patient presents with head injury. The onset was 8 hours ago. Type of injury: direct blow. The character of symptoms is pain and dizziness and blurry vision. Loss of consciousness none. Location: Right frontal temporal. The course/duration of symptoms is worsening, fluctuating in intensity and continues to feel unsteady on feet and burning pain along frontal-temporal region. The location where the incident occurred was at home. Risk factors consist of none. Prior episodes: none. Therapy today: none. Associated symptoms: headache, altered vision, altered coordination and dizziness. Associated injury none. Bent over to pickup remote and he head on tv stand. Denies LOC, nausea or vomitting.. Review of Systems Additional review of systems information: All other systems reviewed and otherwise negative. Health Status Allergies: Allergic Reactions (Selected) Severity Not Documented Codeine- Vomiting.. Past Medical/ Family/ Social History Medical history: Migraines. Surgical history: Culture, chlamydia, any source ([id number]) on 04/11/2012 at 17 Years. 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 Tonsillectomy and adenoidectomy; younger than age 12 (89131) in 2001 at 7 Years. Myringotomy ([id number]) in 1995 at 1 Years.. Family history: Asthma Brother (Marshal) Hypercholesterolemia Father (Dru) . Social history: Alcohol use: Denies, Tobacco use: Denies, Drug use: Denies, Family/social situation:Intact family. Physical Examination Vital Signs: Vital Signs 06/29/2014 20:45 CDT Temperature Core 37.0 DegC Peripheral Pulse Rate 69 /min Respiratory Rate 16 /min SpO2 100 % Systolic Blood Pressure 122 mmHg Diastolic Blood Pressure 76 mmHg Mean Arterial Pressure 91 mmHg BP Location Left upper , Measurements 06/29/2014 20:45 CDT Height 165 cm Height Source Stated Dosing Weight 60.50 kg NA Estimated Weight 60.5 kg , SpO2 06/29/2014 20:45 CDT SpO2 100 % . General: Alert and no acute distress. Shyanne coma scale: Total score: Total score: 15. Neurological: No focal neurological deficit observed, CN II-XII intact, normal sensory observed, normal motor observed, normal coordination observed, Level of consciousness: Appropriate for age and Speech: Normal. Skin: Warm, dry and pink. Head: Normocephalic and On exam: Right, frontal, temporal, tenderness. Neck: Supple and trachea midline. Eye: Pupils are equal, round and reactive to light, extraocular movements are intact, normal conjunctiva, Right retina appears normal. 20/20 vision right eye and normal peripheral vision. Ears, nose, mouth and throat: Tympanic membranes clear and oral mucosa moist. Cardiovascular: Regular rate and rhythm and No murmur. Respiratory: Lungs are clear to auscultation and respirations are non-labored. Chest wall: No tenderness. Back: Nontender, Normal range of motion and Normal alignment. Musculoskeletal: Normal ROM. normal strength. no tenderness. Gastrointestinal: Soft, Nontender and Non distended. Lymphatics: No lymphadenopathy. Psychiatric: Cooperative and appropriate mood & affect. Medical Decision Making Differential Diagnosis:Head injury, concussion, intracranial hemorrhage, contusion, post concussive syndrome. Rationale:Likely concussion like symptoms. However with subjective complaints of worsening pain, vision changes and dizziness will obtain head CT to rule out other pathology.. Head Computed Tomography:No acute disease process, no intracranial hemorrhage, no midline shift, no mass effect, interpretation by Radiologist. Radiology results:Reported at 06/29/2014 22:12:00, Computed tomography, reviewed radiologist's report, reveals no acute disease process, No acute intracranial abnormality. FINDINGS: No intracranial hemorrhage, mass effect, or CT evidence of acute infarction. Paranasal sinuses and mastoid air cells are clear. No fractures. . Impression and Plan Diagnosis Concussion No LOC Active (Discharge, Emergency medicine, Medical) Plan Condition: Stable. Disposition: Medically cleared, Discharged: time 06/29/2014 22:14:00. Patient was given the following educational materials: CONCUSSION w/ Wake Up, CONCUSSION w/ Wake Up. Follow up with: ELSEWHERE PCP Within As Needed; Return to Emergency Department Within As Needed if worsening symptoms, nausea, vomitting or acute change in vision. Counseled: Patient, Family. Notes: No intracranial pathology. Vision and retinal exam normal. Provided handout regarding post-concussive symptoms and education regarding need for emergent reevaluation.. Electronically Signed By: VANESA MENDENHALL MD On: 06/29/2014 10:17 PM Modified by and Electronically Signed by: VANESA MENDENHALL MD On: 06/29/2014 10:17 PM Source: [facility] [employer] Document Id: [id number]} Johnnie Zhou R.N. 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 ; Life Cycle Date: 11/23/2012 ; Life Cycle Status: Active ; Vocabulary: ICD-9-CM Asthma, Unspecified (ICD-9-CM :493.90 ) Name of Problem: Asthma, Unspecified ; Recorder: YVON ZHOU RN; Confirmation: Confirmed ; Classification: Nursing ; Code: 493.90 ; Contributor System: [email or web address] ; Last Updated: 10/30/2012 13:00 PSYCH SALES SPECIALIST ; Life Cycle Date: 10/30/2012 ; Life Cycle Status: Active ; Responsible Provider: JOHNNIE ZHOU RN; Vocabulary: ICD-9-CM Migraine Headache (HUBBARD) NOS (ICD-9-CM :346.90 ) Name of Problem: Migraine Headache (HUBBARD) NOS ; Recorder: JOHNNIE ZHOU RN; Confirmation: Confirmed ; Classification: Nursing ; Code: 346.90 ; Contributor System: [email or web address] ; Last Updated: 06/29/2014 20:46 CDT ; Life Cycle Date: 06/29/2014 ; Life Cycle Status: Active ; Responsible Provider: JOHNNIE ZHOU RN; Vocabulary: ICD-9-CM Diagnoses(Active) Closed head injury without LOC Date: 06/29/2014 ; Diagnosis Type: Reason For Visit ; Confirmation: Complaint of ; Clinical Dx: Closed head injury without LOC ; Classification: Medical ; Clinical Service: Non-Specified ; Code: PNED ; Probability: 0 ; Diagnosis Code: [id number] Triage Chief Complaint Description : see triage note Mode of Arrival ED : Private vehicle Track : Trauma Other Languages : Burmese Is Patient Female and 13-50 no hysterectomy : Yes Status : Patient denies Are you ? : No Treatments Prior to Arrival : None JOHNNIE ZHOU RN - 06/29/2014 20:52 CDT Pain Assessment Pain Symptoms : Yes JOHNNIE ZHOU RN - 06/29/2014 20:52 CDT Respiratory Airway : Patent Respirations : Unlabored Respiratory Pattern : Regular Oxygen Therapy : Room air JOHNNIE ZHOU RN - 06/29/2014 20:52 CDT Cardiovascular Heart Rhythm : Regular Skin Color : [place] Skin Description : Normal Skin Temperature : Warm JOHNNIE ZHOU RN - 06/29/2014 20:52 CDT Neurological Last Well Time Known : Not applicable Level of Consciousness : Alert Orientation : Oriented x 3 Characteristics of Speech : Clear Neuro Patient Stated Symptoms : Dizziness, Drowsiness, Headache, Visual changes Gait : Steady Loss of Consciousness : No JOHNNIE ZHOU RN - 06/29/2014 20:52 CDT ED Psychosocial Affect/Behavior : Calm, Cooperative, Appropriate Domestic Abuse Concerns : None Emotional Support Available : Yes JOHNNIE ZHOU RN - 06/29/2014 20:52 CDT Gastrointestinal Nutrition ED : Adequate JOHNNIE ZHOU RN - 06/29/2014 20:52 CDT Musculoskeletal Fall Prevention Education Provided : JOHNNIE FRAGOSO RN - 06/29/2014 20:52 CDT Social Habits Alcohol Use Grid Alcohol Use : No JOHNNIE ZHOU RN - 06/29/2014 21:04 CDT Tobacco Use/Currently Using : No Exposure to Tobacco Smoke : Care provider denies smoking in home Smoking Status : Never smoker JOHNNIE ZHOU RN - 06/29/2014 20:52 CDT Recreational Drug Use Grid Drug Use : None JOHNNIE ZHOU RN - 06/29/2014 20:52 CDT Source: [facility] [employer] Document Id: [id number] CDT!5 Johnnie Zhou R.N. 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 ; Life Cycle Date: 11/23/2012 ; Life Cycle Status: Active ; Vocabulary: ICD-9-CM Asthma, Unspecified (ICD-9-CM :493.90 ) Name of Problem: Asthma, Unspecified ; Recorder: YVON ZHOU RN; Confirmation: Confirmed ; Classification: Nursing ; Code: 493.90 ; Contributor System: [email or web address] ; Last Updated: 10/30/2012 13:00 PSYCH SALES SPECIALIST ; Life Cycle Date: 10/30/2012 ; Life Cycle Status: Active ; Responsible Provider: JOHNNIE ZHOU RN; Vocabulary: ICD-9-CM Migraine Headache (HUBBARD) NOS (ICD-9-CM :346.90 ) Name of Problem: Migraine Headache (HUBBARD) NOS ; Recorder: JOHNNIE ZHOU RN; Confirmation: Confirmed ; Classification: Nursing ; Code: 346.90 ; Contributor System: [email or web address] ; Last Updated: 06/29/2014 20:46 CDT ; Life Cycle Date: 06/29/2014 ; Life Cycle Status: Active ; Responsible Provider: JOHNNIE ZHOU RN; Vocabulary: ICD-9-CM Diagnoses(Active) Closed head injury without LOC Date: 06/29/2014 ; Diagnosis Type: Reason For Visit ; Confirmation: Complaint of ; Clinical Dx: Closed head injury without LOC ; Classification: Medical ; Clinical Service: Non-Specified ; Code: PNED ; Probability: 0 ; Diagnosis Code: [id number] Triage Chief Complaint Description : 19 year old female presents with dizziness, visual changes, and headache starting at 1300 today after she was bending over and hit right forehead against edge of entertainment center. Information Given By : Patient, Father Accompanied By : Father Mode of Arrival ED : Private vehicle Track : Trauma Other Languages : Burmese Patient Informed of Triage Location : Emergency department Vital Signs Assessed : Yes Is Patient Female and 13-50 no hysterectomy : Yes Status : Patient denies Are you ? : No Treatments Prior to Arrival : None JOHNNIE ZHOU RN - 06/29/2014 20:45 CDT Vital Signs Temperature Core : 37.0 DegC(Converted to: 98.6 DegF) Peripheral Pulse Rate : 69 /min Respiratory Rate : 16 /min Systolic Blood Pressure : 122 mmHg Diastolic Blood Pressure : 76 mmHg NIBP Mean : 91 mmHg BP Location : Left upper extremity SpO2 : 100 % Oxygen Therapy : Room air Height : 165 cm(Converted to: 5 ft 5 inch(es)) Height Source : Stated Estimated Weight : 60.5 kg Estimated Weight Conversion to Pounds : 133.1 lb JOHNNIE ZHOU RN - 06/29/2014 20:45 CDT Pain Assessment Pain Symptoms : Yes JOHNNIE ZHOU RN - 06/29/2014 20:45 CDT Pain Pain Assessment Grid Pain 1 Location : Head Laterality : Right Intensity : 9 Time Pattern : Constant Onset : Sudden Quality : Aching, Burning Pain Radiation : No Aggravating Factors : Light, Noise Alleviating Factors : None Associated Symptoms : Nausea JOHNNIE ZHOU RN - 06/29/2014 20:45 CDT Comfort Measures Comfort Measures Grid Quiet Environment : Yes JOHNNIE ZHOU RN - 06/29/2014 20:45 CDT ED Physician Notification Time ED Physician Notification Time : 06/29/2014 20:51 CDT JOHNNIE ZHOU RN - 06/29/2014 20:45 CDT JACQUELINE JACQUELINE Level 1 : No JACQUELINE Level 2 : No JACQUELINE Level 3 : One JOHNNIE ZHOU RN - 06/29/2014 20:45 CDT DCP GENERIC CODE Tracking Acuity : 4 -Less Urgent Tracking Group : [facility] ED JOHNNIE ZHOU RN - 06/29/2014 20:45 CDT Allergy (As Of: 06/29/2014 20:51:57 CDT) Allergies (Active) codeine Estimated Onset Date: Unspecified ; Reactions: vomiting ; Created By: JOHNNIE ZHOU RN; Reaction Status: Active ; Category: Drug ; Substance: codeine ; Type: Allergy ; Updated By: JOHNNIE ZHOU; Reviewed Date: 06/29/2014 20:51 CDT ID Screen Drug Resistant Organism : No JOHNNIE ZHOU RN - 06/29/2014 20:45 CDT Immunizations Immunizations Current : Yes JOHNNIE ZHOU RN - 06/29/2014 20:45 CDT [facility] Document Id: [id number] CDT!59 documented in this encounter Miscellaneous Notes Miscellaneous - Johnnie Zhou R.N. - 06/29/2014 11:01 PM CDT Valuables/Belongings Valuables/Belongings Entered On: 06/29/2014 23:01 CDT Performed On: 06/29/2014 23:01 CDT by JOHNNIE ZHOU RN Valuables/Belongings Home Medication Disposition : None brought in with patient JOHNNIE ZHOU RN - 06/29/2014 23:01 CDT [facility] Document Id: [id number] CDT!3 Miscellaneous - Johnnie Zhou R.N. - 06/29/2014 8:29 PM CDT Facility Charge Ticket 2.0 11.0 DX Facility Charge Ticket 2.0 11.0 DX Entered On: 06/29/2014 23:02 CDT Performed On: 06/29/2014 20:29 CDT by JOHNNIE ZHOU RN Facility Charge Ticket 2.0 11.0 DX ED Other Charges : Standard ED Encounter TVL Level Translated RTF : Closed head injury without LOC TVL:3 TVL Level for Facility Charge Ticket : Level 3 Arrival Mode Calc : 1 Mode of Arrival ED : Private vehicle [facility] Mode of Arrival Interpreted : Standard [facility] Process Management : None Order Management RTF : CT / MRI / Ultrasound CT Head w/o contrast,06/29/14 21:09,VANESA MENDENHALL MD Completed [facility] Order Management : CT/MRI/Ultrasound 30 Minutes Critical Care : No Nursing Notes RTF : Triage Forms ED Triage Assessment,06/29/14 20:45,JOHNNIE ZHOU RN Nursing Notes ED Primary Assessment,06/29/14 20:52,JOHNNIE ZHOU RN ED Nurse Reassess,06/29/14 22:25,JOHNNIE ZHOU RN ED Pain Assessment,06/29/14 23:01,JOHNNIE ZHOU RN [facility] Nursing Assessment : Triage and 1-2 nursing assessments Lynx Disposition : Discharge Disposition RTF : discharge Lynx Total Points with Diagnosis Control : 7 Lynx Visit Level : 22673 Level 3 Treatments Prior to Arrival : None JOHNNIE ZHOU RN - 06/29/2014 23:01 CDT Chief Complaint 11.0 Reason For Visit Category : Trauma TVL Calculation : 8 ED Chief Complaint Trauma 11.0 : Head injury without LOC - minor TVL for Facility Charge Ticket Dx : Level 3 JOHNNIE ZHOU RN - 06/29/2014 23:01 CDT Source: [employer] Document Id: [id number] CDT!24 documented in this encounter Plan of Treatment Not on filedocumented as of this encounter Visit Diagnoses Not on filedocumented in this encounter
--- OUTSIDE RECORDS SUMMARY | 2022-08-31 12:43 | XMS_ITS | Encounter Summary ---
:1995 Author Organization [facility] Address [address] [place] [address] Care Team Providers Name Role Phone Unavailable Primary Care Provider Unavailable Encounter Details Date Type Department Care Team Description 08/06/2016 Hospital Encounter [facility]X [facility] Shazia Denny M .D., M.P.H. [address] [place], [place] [phone] (Wo rk) Social History [...] or relatives? How often do you attend faith or 1 to 4 times per year 11/11 protestant services? Do you belong to any clubs or Yes 11/23/2021 organizations such as faith groups, unions, fraternal or athletic groups, or [...] documented as of this encounter Nursing Notes Dustin Styles L.P.N. - 08/06/2016 8:41 AM CDT Nurse Only Documentation Nurse Only Documentation Entered On: 08/06/2016 8:41 CDT Performed On: 08/06/2016 8:41 CDT by DUSTIN STYLES LPN Nurse Only Documentation Nurse Only Visit Documentation : Pre employment uds completed for [facility]. Uneventful collection. DUSTIN STYLES LPN - 08/06/2016 8:41 CDT Source: [facility] POWERCHART Document Id: [id number] CDT!3 documented in this encounter Plan of Treatment Not on filedocumented as of this encounter Visit Diagnoses Not on filedocumented in this encounter
--- OUTSIDE RECORDS SUMMARY | 2022-08-31 12:43 | XMS_ITS | Encounter Summary ---
:1995 Author Organization [facility] Address [address] [place] [address] Care Team Providers Name Role Phone Unavailable Primary Care Provider Unavailable Encounter Details Date Type Department Care Team Description 08/07/2016 Hospital Encounter HX [facility] Shazia Denny M .D., M.P.H. [address] [place], [place] [phone] (Wo rk) Social History [...] or relatives? How often do you attend baptism or 1 to 4 times per year 11/11 roman catholic services? Do you belong to any clubs or Yes 11/23/2021 organizations such as baptism groups, unions, fraternal or athletic groups, or [...] or slept in a snf (including now)? Sex Assigned at Date Recorded [...] encounter Nursing Notes Dustin Styles L.P.N. - 08/07/2016 11:09 AM CDT Nurse Only Documentation Nurse Only Documentation Entered On: 08/07/2016 11:10 CDT Performed On: 08/07/2016 11:09 CDT by DUSTIN STYLES LPN Nurse Only Documentation Nurse Only Visit Documentation : [facility] DUSTIN STYLES LPN - 08/07/2016 11:09 CDT Source: [facility] POWERCHART Document Id: [id number] CDT!3 documented in this encounter Plan of Treatment Not on filedocumented as of this encounter Visit Diagnoses Not on filedocumented in this encounter
--- OUTSIDE RECORDS SUMMARY | 2022-08-31 12:43 | XMS_ITS | Encounter Summary ---
:1995 Author Organization [facility] Address [address] [place] [address] Care Team Providers Name Role Phone Unavailable Primary Care Provider Unavailable Encounter Details Date Type Department Care Team Description 10/30/2012 Hospital Encounter HX [facility] Rc Rincon III, M.D. [address] [place] [phone] (Wo rk) Social History Tobacco Use Types [...] Sign Reading Time Taken Comments Blood Pressure 90/60 10/30/2012 12:51 PM SOCIAL MEDIA MARKETING ANALYST Pulse 84 10/30/2012 12:51 PM SOCIAL MEDIA MARKETING ANALYST Temperature - - Respiratory Rate 16 10/30/2012 12:51 PM SOCIAL MEDIA MARKETING ANALYST Oxygen Saturation - - Inhaled Oxygen Concentration - - Weight 65.3 kg (143 lb 15.4 oz) 10/30/2012 12:51 PM SOCIAL MEDIA MARKETING ANALYST Height - - Body Mass Index 23.99 07/18/2012 4:03 PM CDT Body Mass Index Percentile 74.48 % 10/30/2012 12:51 PM SOCIAL MEDIA MARKETING ANALYST Growth Chart: CDC (Girls, 2-20 Years) documented in this encounter Progress Notes Kalpesh Alvarenga M.D. - 10/30/2012 12:26 PM CST [id number] CHIEF COMPLAINT/REASON FOR VISIT Sore throat. HISTORY OF PRESENT ILLNESS Ms. Caraballo is an 17-year white female who states that she has had a sore throat and green nasal drainage x1 week. She denies having a temperature or chills. She has had intermittent loose nonproductive cough. She describes chest pain with her cough as approximately 4/10 in intensity. She describes her sore throat pain as 07/10 in intensity. SYSTEMS REVIEW Pertinent positives and negatives are noted above. The remainder of the complete review of systems is negative. PAST MEDICAL/SURGICAL HISTORY Asthma. CURRENT MEDICATIONS Albuterol. PHYSICAL EXAMINATION VITAL SIGNS: Temperature 37, pulse 84, respirations 16, blood pressure 90/60, weight is 65.3 kg. GENERAL: The patient is alert and cooperative. She is in no acute distress at this time. HEENT: Head is atraumatic, normocephalic without deformities. Eyes pupils are equal, round and reactive to light. Extraocular muscles are intact. Ears normal bilaterally. Nose midline with normal turbinates. Mouth there is no hyperemia or exudates to the posterior pharynx. LUNGS: She does have a mild expiratory wheeze with a bronchial cough. LABORATORY: Rapid strep screen is negative as is influenza A and B. IMPRESSION/REPORT/PLAN 1. Upper respiratory infection. 2. Cough. 3. Sore throat. PLAN: Patient will be treated symptomatically. I did refill her albuterol today. Her questions were answered and reassurance was given. Kalpesh Alvarenga M.D./eddi Electronically Signed By: KALPESH ALVARENGA III, MD On: 12/04/2012 12:16 PM Source: [facility] MHSDOLBEYNONRADSYS Document Id: [id number] AL MEDIA MARKETING ANALYST documented in this encounter Procedure Notes Johnnie Zhou R.N. - 10/30/2012 1:01 PM CST Asthma Control Test (12 yrs and older) Asthma Control Test (12 yrs and older) Entered On: 10/30/2012 13:02 SOCIAL MEDIA MARKETING ANALYST Performed On: 10/30/2012 13:01 SOCIAL MEDIA MARKETING ANALYST by JOHNNIE ZHOU RN ACT Past 4 weeks asthma interfered with work, school, or home : A little of the Time Past 4 weeks how often short of breath : Once or twice a week Past 4 weeks symptoms effect sleep : Not at all Past 4 weeks how often inhaler or nebulizer used : Not at all Past 4 weeks rate your asthma control : Completely controlled ACT Score : 23 JOHNNIE ZHOU RN - 10/30/2012 13:01 SOCIAL MEDIA MARKETING ANALYST Source: [facility] POWERCHART Document Id: [id number] AL MEDIA MARKETING ANALYST documented in this encounter Miscellaneous Notes Miscellaneous - Kalpesh Alvarenga M.D. - 10/30/2012 1:41 PM CST Ambulatory Patient Summary [facility] [address] [place] [address] Visit Information Name: LAUREL CARABALLO [facility] Number: [id number] Current Date: 10/30/2012 13:41:56 Physicians Attending Provider: KALPESH ALVARENGA III, MD Primary Care Provider: CHARLOTTE WHITNEY NP Your Medications Here is a list of your medications. It is important to take your medications as directed. Use a pillbox or chart to help remind you to take your medications. Please let your doctor or nurse know if you have problems taking your medications. Medication/Strength Dose Route Frequency Indications/Special Instructions/Comments albuterol (albuterol 90 mcg/inh inhalation aerosol) 2 [...] prescribed the medication as soon as possible. Attention: If you have any medications at home that are not on this list, DO NOT take them until youcontact your provider for clarification. Your Allergies & Intolerances Substance Reaction Symptoms Category Comments codeine vomiting Drug Your Problem List Problem Status Onset Comments Asthma, Unspecified Active Your Upcoming Appointments Date Time Location Reason Provider No Appointments found Your Goals/Additional instructions: Sudafed or Pseudoephedrine 60 mg every 4 hours for nasal congestion Nyquil to help with sleep and to help with congestion Cough drops to help with cough Cepacol lozenges to help with sore throat If there is a history of seasonal allergies consider: Claritin-D or Loratadine-D Or Zyrtec-D or Certirazine-D These are different then the versions that do not have the D as it denotes containing pseudoephedrine. As always hydrate, hydrate, hydrate, and get plenty of rest. If symptoms persist beyond 21 days please let us know. Source: [facility] POWERCHART Document Id: [id number] AL MEDIA MARKETING ANALYST Miscellaneous - Kalpesh Alvarenga M.D. - 10/30/2012 1:41 PM CST Ambulatory Depart Summary [facility] [address] [facility] [place] [address] Visit Information Name: LAUREL CARABALLO [facility] Number: [id number] Visit Date: 10/30/2012 13:41:55 Attending Provider: KALPESH ALVARENGA III, MD Primary Care Provider: CHARLOTTE WHITNEY NP LAUREL CARABALLO has been given the following list of medications: Your Medications It is important to take your medications as directed. Use a pill box or chart to help remind you to take your medications. Please let your doctor or nurse know if you have problems taking your medications. Medication/Strength Dose Route Frequency Indications/Special Instructions/Comments albuterol (albuterol 90 mcg/inh inhalation aerosol) 2 [...] prescribed the medication as soon as possible. Attention: If you have any medications at home that are not on this list, DO NOT take them until youcontact your provider for clarification. Additional Information: Source: [facility] POWERCHART Document Id: [id number] AL MEDIA MARKETING ANALYST Miscellluz - Johnnie Zhou, R.N. - 10/30/2012 12:51 PM CST Adult Fashion Marketer Intake/History Adult Fashion Marketer Intake/History Entered On: 10/30/2012 12:55 SOCIAL MEDIA MARKETING ANALYST Performed On: 10/30/2012 12:51 SOCIAL MEDIA MARKETING ANALYST by JOHNNIE ZHOU welder explosion Chief Complaint : ST and green nasal drainage x one week. Denies temp. Intermittent loose, non-productive cough. Temperature Core : 37.0C(Converted to: 98.6DegF) Peripheral Pulse Rate : 84/min Respiratory Rate : 16/min Heart Rhythm : Regular Systolic Blood Pressure : 90mmHg (LOW) Diastolic Blood Pressure : 60mmHg NIBP Mean : 70mmHg BP Location : Right upper extremity Blood Pressure Cuff Size : Regular Actual Weight : 65.3kg(Converted to: 143lb 15oz) Weight Source : Standing scale Dosing Weight Clinic : 65.30kg JOHNNIE ZHOU RN - 10/30/2012 12:51 SOCIAL MEDIA MARKETING ANALYST Subjective Pain Symptoms : Yes JOHNNIE ZHOU RN - 10/30/2012 12:51 SOCIAL MEDIA MARKETING ANALYST Pain Pain Assessment Grid Pain 1 Pain 2 Location : Chest Throat Laterality : Bilateral Intensity : 4 7 Aggravating Factors : None Swallowing, Other: talking JOHNNIE ZHOU RN - 10/30/2012 12:51 SOCIAL MEDIA MARKETING ANALYST JOHNNIE ZHOU RN - 10/30/2012 12:51 SOCIAL MEDIA MARKETING ANALYST FLACC Legs FLACC : Kicking or legs drawn up JOHNNIE ZHOU RN - 10/30/2012 12:51 SOCIAL MEDIA MARKETING ANALYST Dependent Habits Tobacco Use/Currently Using : No Exposure to Tobacco Smoke : Care provider denies smoking in home Smoking Status : Never smoker JOHNNIE ZHOU RN - 10/30/2012 12:51 SOCIAL MEDIA MARKETING ANALYST Caffeine Use Grid Caffeine Use : Current Type : Soft drinks Frequency : Daily JOHNNIE ZHOU RN - 10/30/2012 12:51 SOCIAL MEDIA MARKETING ANALYST Recreational Drug Use Grid Drug Use : None JOHNNIE ZHOU RN - 10/30/2012 12:51 SOCIAL MEDIA MARKETING ANALYST Allergy Allergies (Active) codeine Estimated Onset Date: Unspecified ; Created By: MELBA SILVA LPN; Reaction Status: Active ; Category: Drug ; Substance: codeine ; Type: Allergy ; Updated By: MELBA SILVA LPN; Reviewed Date: 12/15/2011 10:43 SOCIAL MEDIA MARKETING ANALYST Source: [facility] POWERCHART Document Id: [id number] AL MEDIA MARKETING ANALYST documented in this encounter Plan of Treatment Not on filedocumented as of this encounter Procedures Procedure Name Priority Date/Time Associated Diagnosis Comme nts INFLUENZA A/B Routine 10/30/2012 1:14 PM Results for this SOCIAL MEDIA MARKETING ANALYST procedure are i n the results section. RAPID STREP A Routine 10/30/2012 1:14 PM Results for this SCREEN SOCIAL MEDIA MARKETING ANALYST procedure are i n the results section. RAPID STREP A Routine 10/30/2012 1:14 PM Results for this SCREEN SOCIAL MEDIA MARKETING ANALYST procedure are i n the results section. documented in this encounter Results Rapid Strep A Screen (10/30/2012 1:14 PM SOCIAL MEDIA MARKETING ANALYST) [facility] Method Time Signature HXRapid Strep POWERCHART Confirmation HXPre Negative for POWERCHART Group A Strep by culture. HXFinal Negative for POWERCHART Group A Strep by culture. Specimen Anatomical Collection Method Collection Time Receive d Time (Source) Location / / Volume Laterality Throat 10/30/2012 1:14 PM 2 1:14 SOCIAL MEDIA MARKETING ANALYST PM SOCIAL MEDIA MARKETING ANALYST Kalpesh Alvarenga III, M.D. LAB MICROBIOLOGY - GENE RAL ORDERABLES Performing Organization Address City/[facility] Code Phon e Number POWERCHART Influenza A/B (10/30/2012 1:14 PM SOCIAL MEDIA MARKETING ANALYST) athologist Signature HXInfluenza A POWERCHART and B AG Comment: If result is negative: The sensitivity/specificity of the Influ jose A screening test is 80% and 93% respectively. The sensitivity/specificity of the Influ jose B screening test is 65% and 97% respectively. If further testing is indicated, please call the laboratory to order the referred MML PCR test. HXFinal Negative for Influenzae A protein antigen. POWERCHART HXFinal Negative for Influenzae B protein antigen. POWERCHART HXFinal Reference: Negative for Influenzae A and Influenzae B POWERCHART protein antigens. Specimen (Source) Anatomical Collection Method Collection Time Re ceived Time Location / / Volume Laterality Nasal 10/30/2012 1:14 PM SOCIAL MEDIA MARKETING ANALYST Kalpesh Alvarenga III, M.D. LAB MICROBIOLOGY - GENE RAL ORDERABLES Performing Organization Address City/[facility] Phon e Number POWERCHART Rapid Strep A Screen (10/30/2012 1:14 PM SOCIAL MEDIA MARKETING ANALYST) [facility] Method Time Signature HXStrep A POWERCHART Screen Rapid HXFinal Negative for POWERCHART Strep Group A by rapid screen. HXFinal Culture POWERCHART confirmation to follow. Specimen (Source) Anatomical Collection Method Collection Time Re ceived Time Location / / Volume Laterality Throat 10/30/2012 1:14 PM SOCIAL MEDIA MARKETING ANALYST Kalpesh Alvarenga III, M.D. LAB MICROBIOLOGY - GENE [facility] ORDERABLES Performing Organization Address City/State/ZIP Code Phon e Number POWERCHART documented in this encounter Visit Diagnoses Not on filedocumented in this encounter
--- OUTSIDE RECORDS SUMMARY | 2022-08-31 12:43 | XMS_ITS | Encounter Summary ---
:1995 Author Organization [facility] Address [address] [place] [address] Care Team Providers Name Role Phone Unavailable Primary Care Provider Unavailable Encounter Details Date Type Department Care Team Description 02/11/2017 Hospital Encounter HX RST EMERGENCY Provider, Historic al TRAUMA UNI Social History Tobacco Use Types [...] Procedure Name Priority Date/Time Associated Comments Diagnosis CT ABDOMEN PELVIS WITH Routine 02/11/2017 4:02 Re sults for this IV CONTRAST PM CDT procedure are i n the results section. MICROSCOPIC MANUAL Routine 02/11/2017 2:54 Result s for this PM CDT procedure are i n the results section. GRAM'S ST, U Routine 02/11/2017 2:54 Results for this PM CDT procedure are i n the results section. URINALYSIS WITH Routine 02/11/2017 2:54 Results f or this MICROSCOPIC PM CDT procedure are i n the results section. DX CHEST AP OR PA AND Routine 02/11/2017 1:34 Res ults for this LATERAL 2 VIEWS PM CDT procedure ar e in the results section. ABORH, RBC Routine 02/11/2017 1:19 Results for this PM CDT procedure are i n the results section. ABORH, RBC Routine 02/11/2017 1:02 Results for this PM CDT procedure are i n the results section. ANTIBODY SCREEN, B Routine 02/11/2017 1:02 Result s for this PM CDT procedure are i n the results section. HX MICROBIOLOGY REPORTS Routine 02/11/2017 12:52 Results for this PM CDT procedure are i n the results section. LACTATE, B/P Routine 02/11/2017 12:50 Results for this PM CDT procedure are i n the results section. SEDIMENTATION RATE, B Routine 02/11/2017 12:49 Re sults for this PM CDT procedure are i n the results section. CBC WITH DIFFERENTIAL, B Routine 02/11/2017 12:49 Results for this PM CDT procedure are i n the results section. C-REACTIVE PROTEIN Routine 02/11/2017 12:49 Resul ts for this (CRP), S/P PM CDT procedure are i n the results section. HUMAN CHORIONIC Routine 02/11/2017 12:49 Results for this GONADOTROPIN (HCG), PM CDT procedur e are in [place], the results section. ASPARTATE Routine 02/11/2017 12:49 Results for this AMINOTRANSFERASE (AST), PM CDT proc edure are in S/P the results section. ALKALINE PHOSPHATASE, Routine 02/11/2017 12:49 Re sults for this S/P PM CDT procedure are i n the results section. LIPASE, S/P Routine 02/11/2017 12:49 Results for this PM CDT procedure are i n the results section. BILIRUBIN DIRECT, S/P Routine 02/11/2017 12:49 Re sults for this PM CDT procedure are i n the results section. BILIRUBIN, TOT, S/P Routine 02/11/2017 12:49 Resu lts for this PM CDT procedure are i n the results section. BASIC METABOLIC PANEL, Routine 02/11/2017 12:49 R esults for this S/P PM CDT procedure are i n the results section. HX MICROBIOLOGY REPORTS Routine 02/11/2017 12:36 Results for this PM CDT procedure are i n the results section. documented in this encounter Results CT Abdomen Pelvis with IV Contrast (02/11/2017 4:02 PM CDT) Anatomical Region Laterality Modality Abdomen, Pelvis N/A Computed Tomography Specimen (Source) Anatomical Collection Method Collection Time Re ceived Time Location / / Volume Laterality 02/11/2017 4:02 PM CDT Impressions 02/11/2017 4:16 PM CDT ??Colitis may be due to inflammatory or infectious causes. FINDINGS: ??Mural thickening and hyperen hancement of the majority of the colon is noted, most severely affecting the ascending colon with less severe involvement of the transverse and descending colon. The sigmoid colon and rectum appears lar gilda normal. Small pelvic free fluid. Right lower quadrant lymphadenopathy is presumably reactive. Normal appendix. Remainder unremarkable. Electronically signed by: ?? Todd Parra MD [phone] 11-Feb-2017 16:16 Narrative 02/11/2017 4:16 PM CDT 11-Feb-2017 16:02:00 ??Exam: CT ABDOMEN w & PELVIS w Indications: [place] 5 - Abdomen and Pelvis CONTRAST FACTORS LISTED abd pain, fever ORIGINAL REPORT - 11-Feb-2017 16:16:00 EXAM: ??CT scan of the Abdomen and Pelvi s with IV contrast COMPARISON: ??None Procedure Note Dru Parra M.D. - 02/05/2018For matting of this note might be different from the original. 11-Feb-2017 16:02:00 Exam: CT ABDOMEN w & PELVIS w Indications: [place] 5 - Abdomen and Pelvis CONTRAST FACTORS LISTED abd pain, fever ORIGINAL REPORT - 11-Feb-2017 16:16:00 EXAM: CT scan of the Abdomen and Pelvis with IV contrast COMPARISON: None IMPRESSION: Colitis may be due to inflam matory or infectious causes. FINDINGS: Mural thickening and hyperenha ncement of the majority of the colon is noted, most severely affecting the ascending colon with less severe involvement of the transverse and descending colon. The sigmoid colon and rectum appears largely normal. Small pelvic free fluid. Right lower quadrant lymphadenopathy is presumably reactive. Normal appendix. Remainder unremarkable. Electronically signed by: Todd Parra MD [phone] 11-Feb-2017 16:16 Kimi Galvan M.D., Ph.D. IMG CT PROCEDURES Microscopic Manual (02/11/2017 2:54 PM CDT) athologist Signature Microscopy Normal [facility] Specimen Anatomical Collection Method Collection Time Receive d Time (Source) Location / / Volume Laterality 02/11/2017 2:54 PM 7 2:54 CDT PM CDT Kimi Galvan M.D., Ph.D. LAB URINE ORDERABLES Performing Organization Address City/State/ZIP Code Phon e Number [facility] - [address] [place], [place] [address] [facility] Urinalysis with Microscopic (02/11/2017 2:54 PM CDT) athologist Signature Glucose 2 0 - 15 [facility] MG/DL [facility] Protein, U 6 <22 MG/DL [facility] Comment: ? ADDITIONAL INFORMATIO N ? On 05/24/2014 the total protein assay me thod changed resulting ? in approximately a 20% increase in prote in values. ? Protein/Osmolality 0.19 <0.27 [facility] Comment: ? ADDITIONAL INFORMATIO N ? On 05/24/2014 the total protein assay me thod changed resulting ? in approximately a 20% increase in prote in values. ? Predicted 24 Hr Protein 151 MG/24 H [facility] S Source Midstream [facility] Appearance Normal Normal [facility] Osmolality, 24 HR, U 310 150 - 1150 MOSM/KG [facility] S pH, 24 HR, U 7.3 4.5 - 8.0 [facility] LABOR ATORIES [facility] Comment: ? ADDITIONAL INFORMATIO N ? This test was developed and its performa nce characteristics determined by ? [facility] in a manner consistent with CLIA requirements. This test has not ? been cleared or approved by the [place] d and Drug Administration. ? Predicted Range 37-610 MG/24 H [facility] Hemoglobin, QL Negative Negative [facility] Specimen Anatomical Collection Method Collection Time Receive d Time (Source) Location / / Volume Laterality 02/11/2017 2:54 PM 7 2:54 CDT PM CDT Kimi Galvan M.D., Ph.D. LAB URINE ORDERABLES Performing Organization Address City/State/ZIP Code Phon e Number [facility] LABORATORIES - [address] [place], [place] [address] [facility] Gram Stain, Urine (02/11/2017 2:54 PM CDT) [facility] gist Method Time Signature Gram's Stain, Negative [facility] Screen, U [facility] Comment: ? ADDITIONAL INFORMATIO N ? This test has been modified from the man annikar's ? instructions. Its performance characteri stics were ? determined by [facility] in a manner co nsistent with ? CLIA requirements. This test has not bee n cleared or ? approved by the U.S. Food and Drug Admin istration. ? Specimen Anatomical Collection Method Collection Time Receive d Time (Source) Location / / Volume Laterality 02/11/2017 2:54 PM 7 2:54 CDT PM CDT Kimi Galvan M.D., Ph.D. LAB URINE ORDERABLES Performing Organization Address City/State/ZIP Code Phon e Number [facility] LABORATORIES - [address] [place], [place] [address] [facility] DX Chest AP or PA and Lateral 2 Views (02/11/2017 1:34 PM CDT) Anatomical Region Laterality Modality Chest N/A Radiographic Imaging Specimen (Source) Anatomical Collection Method Collection Time Re ceived Time Location / / Volume Laterality 02/11/2017 1:34 PM CDT Impressions 02/11/2017 1:40 PM CDT No comparison. Lungs clear. No pleural effusion or pneumothorax. Heart size normal. Electronically signed by: ?? Harshad Tapia M.D. [phone] 11-Feb-2017 13:40 Narrative 02/11/2017 1:40 PM CDT 11-Feb-2017 13:34:00 ??Exam: Chest-- 2 Views Indications: fever ORIGINAL REPORT - 11-Feb-2017 13:40:00 EXAM: Chest 2 views: Procedure Note Harshad Tapia M.D. - 02/05/2018For matting of this note might be different from the original. 11-Feb-2017 13:34:00 Exam: Chest-- 2 Vie ws Indications: fever ORIGINAL REPORT - 11-Feb-2017 13:40:00 EXAM: Chest 2 views: IMPRESSION: No comparison. Lungs clear. No pleural effusion or pneumothorax. Heart size normal. Electronically signed by: Harshad Tapia M.D. [phone] 11-Feb-2017 13:40 Kimi Galvan M.D., Ph.D. IMG DIAGNOSTIC IMAGING LA OCEDURES ABORh, RBC (02/11/2017 1:19 PM CDT) P athologist Signature HXABO/RH BLOOD O Pos [facility] TYPE LABORATORIES - [facility] Specimen (Source) Anatomical Collection Method Collection Time Re ceived Time Location / / Volume Laterality 02/11/2017 1:19 PM CDT Historical Provider LAB BLOOD BANK TEST ORDERABL ES Performing Organization Address City/[facility]/ZIP Code Phon e Number [facility] - [address] [place], [place] [address] [facility] Antibody Screen, RBC (02/11/2017 1:02 PM CDT) Patholo gist Method Time Signature Antibody Negative [facility] Specimen (Source) Anatomical Collection Method Collection Time Re ceived Time Location / / Volume Laterality 02/11/2017 1:02 PM CDT Historical Provider LAB BLOOD BANK TEST ORDERABL ES Performing Organization Address City/State/ZIP Code Phon e Number [facility] - [address] [place], [place] [address] [facility] ABORh, RBC (02/11/2017 1:02 PM CDT) P athologist Signature HXABO/RH O POS [facility] Specimen (Source) Anatomical Collection Method Collection Time Re ceived Time Location / / Volume Laterality 02/11/2017 1:02 PM CDT Historical Provider LAB BLOOD BANK TEST ORDERABL ES Performing Organization Address City/[facility]/ZIP Code Phon e Number [facility] - [address] [place] [address] [facility] Microbiology Reports (02/11/2017 12:52 PM CDT) Specimen Anatomical Collection Method Collection Time Receive d Time (Source) Location / / Volume Laterality 02/11/2017 12:52 02/11/2017 PM CDT 12:53 PM CDT Narrative [facility] - 02/16/2017 2:02 PM CDT 11-FEB-2017 BLOOD, ? SoftOrd# [id number] ?(Ordered 11-FEB-2017; Collec alicia 11-FEB-2017 12:52; Received 11-FEB-2017 13:12) ?[facility] ?Received Bactec Peds bottle ?BACTERIA/TIMMY CULTURE, BLOOD ? (Reported 16-FEB-2017 14:02) FINAL ?No growth after 5 days of in cubation. Procedure Note 03/28/2018 11-FEB-2017 BLOOD, SoftOrd# [id number] (Ordered 11-FEB-2017; Collected 2016 12:52; Received 11-FEB-2017 13:12) [facility] Received Bactec Peds bottle BACTERIA/TIMMY CULTURE, BLOOD (Repor alicia 16-FEB-2017 14:02) FINAL No growth after 5 days of incubation. Kimi Galvan M.D., Ph.D. LAB MICROBIOLOGY - GENERA L ORDERABLES Performing Organization Address City/[facility]/ZIP Code Phon e Number [facility] LAB[facility]ATORIES - [address] [place] [address] [facility] Lactate (02/11/2017 12:50 PM CDT) P athologist Signature Lactate, P 1.2 0.6 - 2.3 [facility] MMOL/L [facility] - [facility] Specimen Anatomical Collection Method Collection Time Receive d Time (Source) Location / / Volume Laterality 02/11/2017 12:50 02/11/2017 PM CDT 12:50 PM CDT Kimi Galvan M.D., Ph.D. LAB BLOOD NON ADD-ON Performing Organization Address City/[facility] Phon e Number [facility] LABORATORIES - [address] (ABNORMAL) BMP (Basic Metabolic Panel) (02/11/2017 12:49 PM CDT) Patholo gist Method Time Signature Chloride, S 98 98 - 107 [facility] MMOL/L [facility] Creatinine 0.8 0.6 - 1.1 [facility] MG/DL LABORATORIES - [facility] eGFR >60 >60 [facility] Non-Black/Afric ML/MIN/BSA LABORATORIES - an Micronesian [facility] eGFR-Black/Afri >60 >60 [facility] can Micronesian ML/MIN/BSA LABORATORIES - [facility] BUN (Blood Urea 9 6 - 21 [facility] Nitrogen), S MG/DL [facility] HX Bicarbonate, 26 22 - 29 [facility] P/S MMOL/L [facility] Sodium, P 140 135 - 145 [facility] MMOL/L [facility] Potassium, P 3.7 3.6 - 5.2 [facility] MMOL/L [facility] Glucose, S 98 70 - 140 [facility] MG/DL [facility] Anion Gap 16 (H) 7 - 15 [facility] Specimen Anatomical Collection Method Collection Time Receive d Time (Source) Location / / Volume Laterality 02/11/2017 12:49 02/11/2017 PM CDT 12:49 PM CDT Kimi Galvan M.D., Ph.D. LAB BLOOD ADD-ON Performing Organization Address City/State/ZIP Code Phon e Number [facility] - [address] [place], [place] [address] [facility] (ABNORMAL) CBC with Differential (02/11/2017 12:49 PM CDT) [facility] gist Method Time Signature Hemoglobin 11.4 (L) 12.0 - [facility] 15.5 G/DL [facility] Hematocrit 34.5 (L) 34.9 - [facility] 44.5 % [facility] Leukocytes 20.5 (H) 3.5 - 10.5 [facility] X10(9)/L [facility] Neutrophils 12.91 (H) 1.70 - [facility] 7.00 LABORATORIES - X10(9)/L [facility] Comment: REVISED RESULTS ? Rechecked ? PREVIOUSLY REPORTED A S ? 12.91 Flagged as: H ??(Reported 04/03/20 17 ? 14:00) ? Erythrocytes 4.12 3.90 - 5.03 X10(12)/L [facility] S MCV 83.7 81.6 - 98.3 FL [facility] ORATORIES [facility] S RBC Distrib Width 13.6 11.9 - 15.5 % [place] [facility] S Platelet Count 470 (H) 150 - 450 X10(9)/L [facility] Lymphocytes 4.01 (H) 0.90 - 2.90 X10(9)/L [place] [facility] S Monocytes 3.31 (H) 0.30 - 0.90 X10(9)/L [place] [facility] S Eosinophils 0.15 0.05 - 0.50 X10(9)/L [place] [facility] S Basophils 0.08 0.00 - 0.30 X10(9)/L [place] [facility] Specimen Anatomical Collection Method Collection Time Receive d Time (Source) Location / / Volume Laterality 02/11/2017 12:49 02/11/2017 PM CDT 12:49 PM CDT Kimi Galvan M.D., Ph.D. LAB BLOOD ADD-ON Performing Organization Address City/[facility] Code Phon e Number [facility] - [address] [place] [address] [facility] Lipase (02/11/2017 12:49 PM CDT) P athologist Signature Lipase, S 21 10 - 73 U/L [facility] Specimen Anatomical Collection Method Collection Time Receive d Time (Source) Location / / Volume Laterality 02/11/2017 12:49 02/11/2017 PM CDT 12:49 PM CDT Kimi Galvan M.D., Ph.D. LAB BLOOD ADD-ON Performing Organization Address City/[facility] Phon e Number [facility] - [address] AST (Aspartate Aminotransferase) (02/11/2017 12:49 PM CDT) [facility] Method Time Signature Aspartate 20 8 - 43 [facility] Aminotransferase U/L LABORATORIES - (AST), P [facility] Specimen Anatomical Collection Method Collection Time Receive d Time (Source) Location / / Volume Laterality 02/11/2017 12:49 02/11/2017 PM CDT 12:49 PM CDT Kimi Galvan M.D., Ph.D. LAB BLOOD ADD-ON Performing Organization Address City/State/ZIP Code Phon e Number [facility] LABORATORIES - [address] [place] [address] [facility] hCG (Human Chorionic Gonadotropin), Quantitative, (02/11/2017 12:49 PM CDT) [facility] Method Time Signature HCG, <0.5 <5.0 [facility] Quantitative, Negative; LABORATORIES - , S 5.0-25.[address] [facility] e; >25.0 Positive IU/L Specimen Anatomical Collection Method Collection Time Receive d Time (Source) Location / / Volume Laterality 02/11/2017 12:49 02/11/2017 PM CDT 12:49 PM CDT Kimi Galvan M.D., Ph.D. LAB BLOOD ADD-ON Performing Organization Address City/State/ZIP Code Phon e Number [facility] LABORATORIES - [address] [place] [address] [facility] Bilirubin, Direct (02/11/2017 12:49 PM CDT) athologist Signature Bilirubin, 0.3 0.0 - 0.3 [facility] Direct, P MG/DL LABORATORIES - [facility] Specimen Anatomical Collection Method Collection Time Receive d Time (Source) Location / / Volume Laterality 02/11/2017 12:49 02/11/2017 PM CDT 12:49 PM CDT Kimi Galvan M.D., Ph.D. LAB BLOOD ADD-ON Performing Organization Address City/State/ZIP Code Phon e Number [facility] LABORATORIES - [address] [place] [address] [facility] Sedimentation Rate (02/11/2017 12:49 PM CDT) [facility] Method Time Signature Sedimentation 17 0 - 29 [facility] Rate, B MM/1 H [facility] Specimen Anatomical Collection Method Collection Time Receive d Time (Source) Location / / Volume Laterality 02/11/2017 12:49 02/11/2017 PM CDT 12:49 PM CDT Kimi Galvan M.D., Ph.D. LAB BLOOD ADD-ON Performing Organization Address City/[facility]/ZIP Code Phon e Number [facility] LABORATORIES - [address] [place] [address] [facility] (ABNORMAL) Alkaline Phosphatase (02/11/2017 12:49 PM CDT) Analysis Performed At Patho logist Time Signature Alkaline 49 (L) 52 - 144 [facility] Phosphatase, S U/L [facility] Specimen Anatomical Collection Method Collection Time Receive d Time (Source) Location / / Volume Laterality 02/11/2017 12:49 02/11/2017 PM CDT 12:49 PM CDT Kimi Galvan M.D., Ph.D. LAB BLOOD ADD-ON Performing Organization Address City/[facility] Phon e Number [facility] LABORATORIES - [address] [place] [address] [facility] Bilirubin, Total (02/11/2017 12:49 PM CDT) P athologist Signature Bilirubin, 0.8 <=1.2 [facility] Total, P MG/DL [facility] Specimen Anatomical Collection Method Collection Time Receive d Time (Source) Location / / Volume Laterality 02/11/2017 12:49 02/11/2017 PM CDT 12:49 PM CDT Kimi Galvan M.D., Ph.D. LAB BLOOD ADD-ON Performing Organization Address City/[facility]/ZIP Code Phon e Number [facility] LABORATORIES - [address] [place] [address] [facility] (ABNORMAL) CRP (C-Reactive Protein) (02/11/2017 12:49 PM CDT) Patholo gist Method Time Signature C-Reactive 104.3 (H) <=8.0 [facility] Protein (CRP), MG/L LABORATORIES - [facility] Specimen Anatomical Collection Method Collection Time Receive d Time (Source) Location / / Volume Laterality 02/11/2017 12:49 02/11/2017 PM CDT 12:49 PM CDT Kimi Galvan M.D., Ph.D. LAB BLOOD ADD-ON Performing Organization Address City/[facility] Code Phon e Number [facility] - [address] [place] [address] [facility] Microbiology Reports (02/11/2017 12:36 PM CDT) Specimen Anatomical Collection Method Collection Time Receive d Time (Source) Location / / Volume Laterality 02/11/2017 12:36 02/11/2017 PM CDT 12:50 PM CDT Narrative [facility] - 02/16/2017 2:02 PM CDT 11-FEB-2017 BLOOD, ? SoftOrd# [id number] ?(Ordered 11-FEB-2017; Collec alicia 11-FEB-2017 12:36; Received 11-FEB-2017 13:10) ?[facility] ?Received Bactec Peds bottle ?BACTERIA/TIMMY CULTURE, BLOOD ? (Reported 16-FEB-2017 14:02) FINAL ?No growth after 5 days of in cubation. Procedure Note 03/28/2018 11-FEB-2017 BLOOD, SoftOrd# [id number] (Ordered 11-FEB-2017; Collected 2016 12:36; Received 11-FEB-2017 13:10) [facility] Received Bactec Peds bottle BACTERIA/TIMMY CULTURE, BLOOD (Repor alicia 16-FEB-2017 14:02) FINAL No growth after 5 days of incubation. Kimi Galvan M.D., Ph.D. LAB MICROBIOLOGY - GENERA L ORDERABLES Performing Organization Address City/[facility] Code Phon e Number [facility] LABORATORIES - [address] [place], [place] [address] [facility] documented in this encounter Visit Diagnoses Not on filedocumented in this encounter
--- OUTSIDE RECORDS SUMMARY | 2022-08-31 12:43 | XMS_ITS | Encounter Summary ---
:1995 Author Organization [facility] Address [address] [place] [address] Care Team Providers Name Role Phone Unavailable Primary Care Provider Unavailable Encounter Details Date Type Department Care Team Description 12/16/2012 Hospital Encounter HX [facility] Provider, Historica l Social History Tobacco Use Types Packs/Day Years [...]
--- OUTSIDE RECORDS SUMMARY | 2022-08-31 12:43 | XMS_ITS | Encounter Summary ---
:1995 Author Organization [facility] Address [address] [place] [address] Care Team Providers Name Role Phone Unavailable Primary Care Provider Unavailable Encounter Details Date Type Department Care Team Description 12/15/2008 Hospital Encounter HX [facility] INPT/OBSRV Beth Jordan M.D. [address] [place] [address] (Wo rk) Social History Tobacco Use Types [...] 1 to 4 times per year 11/11 syn[employer] services? Do you belong to any clubs [...]
--- OUTSIDE RECORDS SUMMARY | 2022-08-31 12:43 | XMS_ITS | Encounter Summary ---
:1995 Author Organization [facility] Address [address] [place] [address] Care Team Providers Name Role Phone Unavailable Primary Care Provider Unavailable Encounter Details Date Type Department Care Team Description 09/29/2013 Hospital Encounter HX [facility] Misael Daigle ED, M.B. Social History Tobacco Use Types Packs/Day Years [...] or relatives? How often do you attend buddhism or 1 to 4 times per year 11/11 restorationism services? Do you belong to any clubs or Yes 11/23/2021 organizations such as buddhism groups, unions, fraternal or athletic groups, or [...] Sign Reading Time Taken Comments Blood Pressure 114/66 09/29/2013 9:49 PM MASCARA MOLDER Pulse 72 09/29/2013 7:47 PM MASCARA MOLDER Temperature - - Respiratory Rate 20 09/29/2013 7:47 PM MASCARA MOLDER Oxygen Saturation - - Inhaled Oxygen Concentration - - Weight - - Height - - Body Mass Index - - documented in this encounter Discharge Summaries Marleen Kenney R.N. - 09/29/2013 10:30 PM CST ED Discharge Instructions [place] [id number] Name: LAUREL CARABALLO Date of : 1995 12:00 AM Visit Date: 09/29/2013 7:38 PM [facility] Number: [id number] Address: [address] [place] [phone] Primary Care Provider: PCP, KEVIN IMPORTANT: [facility] in [place] would like to thank you for allowing us to assist you with your healthcare needs. The following includes patient education materials and information regarding your injury/illness. Chief Complaint: Headache; MIGRAINE Follow-Up Instructions: With: Address: When: Return to Emergency Department Within As Needed Comments: If symptoms worsen With: Address: When: Follow up with primary care provider Within 3 - 5 days Comments: Call for follow up appointment Patient Education Materials: [id number] Migraines and Cluster Headaches Migraines and cluster headaches cause intense, throbbing pain on one side of the head. With a migraine, you may have nausea and vomiting and be sensitive to light and sound. You may also have warning signs, such as flashing lights or loss of parts of your vision, before the pain starts. Cluster headaches recur in groups for days, weeks, or months. The pain is centered around or behind one eye. Migraines and cluster headaches can have many causes. To help prevent migraines and cluster headaches: ?? Avoid aged cheeses, nuts, beans, chocolate, red wine, or foods that contain caffeine, nitrates, and MSG. ?? Dont work in poor lighting. ? bltReduce stress as much as you can. ?? Get plenty of sleep each night. ?? Exercise regularly under your doctors guidance. To relieve the pain: ?? Stay quiet and rest. ?? Use cold to numb the pain. Wrap ice or a cold can of soda in a cloth. Hold it against the site ofpain for 10 minutes. Repeat every 20 minutes. ?? Avoid light. Wear dark glasses, returned goods receiving clerk lights, and close the curtains. When outdoors, wear a brimmed hat. ?? Drink lots of fluids. Sip caffeine-free flat soda to help relieve nausea. See your doctor if you get migraines or cluster headaches often. There are effective medications to help treat them. ?? [id number] [facility], [address] [place] [address]. All rights reserved. This information is not intended as a substitute for professional medical care. Always follow your healthcare professional's instructions. ED Tests and Procedures: Order Status Urinalysis with Microscopic if Indicated Completed Beta hCG Qualitative Urine Completed Discharge Prescriptions & Home Medications: Medication/Strength Dose Route Frequency Indications/Special Instructions/Comments/Notes albuterol (albuterol 90 mcg/inh inhalation aerosol) 2 [...] arrange a ride home with a responsible alliance party. I, LAUREL CARABALLO , or responsible alliance party have received this information and my [...] arrange a ride home with a responsible alliance party. I, LAUREL CARABALLO , or responsible alliance party have received this information and my questions have been answered. I have discussed any challenges I see with this plan with the nurse or physician. Patient Signature or Responsible Green Party/Relationship Date Time Provider Signature Date Time This document has images extracted. Please consider using [employer] for all your patient education needs. Source: [facility] Document Id: [id number] ARA MOLDER Marleen Kenney R.N. - 09/29/2013 10:30 PM CST ED Depart Summary [facility] Emergency Department Clinical Discharge Summary PERSON INFORMATION Name LAUREL CARABALLO Age 18 Years 1995 12:00 AM Sex Female Language Norwegian PCP PCP, ELSEWHERE Marital Status Single N [id number] Visit Id Visit Reason Headache; MIGRAINE Specialty Enc Type Emergency Med Service Emergency Medicine Referred by Track Group [facility] ED Discharge 09/29/2013 10:30 PM Tracking Id [id number] Checkout 09/29/2013 10:30 PM Checkin 09/29/2013 7:38 PM Acuity 3 -Urgent Dispo Type * Discharged to Home or Self Care Arrival 09/29/2013 7:38 PM Reg Status Complete LOS 000 02:52 Address: [address] [place] [phone] Comment: PROVIDER INFORMATION Provider Role Provider Contact Time MISAEL CAMILO MD ED Provider 09/29/13 20:39 MARLEEN KENNEY WREATH INSPECTOR Nurse 09/29/13 20:43 NELLA BRANHAM ED Receptionist Doctor'S Office 09/29/13 20:57 DIAGNOSIS Migraine headache 346.90 Comment: PATIENT EDUCATION INFORMATION Instructions: Migraines and Cluster Headaches Follow up: With: Address: When: Return to Emergency Department Within As Needed Comments: If symptoms worsen With: Address: When: Follow up with primary care provider Within 3 - 5 days Comments: Call for follow up appointment Source: [facility] [employer] Document Id: [id number] ARA MOLDER documented in this encounter ED Notes Marleen Kenney R.N. - 09/29/2013 10:29 PM CST ED Education ED Education Entered On: 09/29/2013 22:29 MASCARA MOLDER Performed On: 09/29/2013 22:29 MASCARA MOLDER by MARLEEN KENNEY RN Education ED Education Grid Topics : Discharge instructions/Medication list, Importance of follow-up visits, Pain management, Plan of care, When to call health care provider Individuals Taught : Patient, Friend Barriers to Learning : None evident Teaching Method : Explanation, Printed materials Teaching Evaluation : Able to teach back, Verbalizes understanding MARLEEN KENNEY RN - 09/29/2013 22:29 MASCARA MOLDER Source: [facility] [employer] Document Id: [id number] MASCARA MOLDER!9 ARA MOLDER Marleen Kenney R.N. - 09/29/2013 10:29 PM CST ED Pain Assessment ED Pain Assessment Entered On: 09/29/2013 22:29 MASCARA MOLDER Performed On: 09/29/2013 22:29 MASCARA MOLDER by MARLEEN KENNEY RN Pain Assessment Pain Symptoms : No MARLEEN KENNEY RN - 09/29/2013 22:29 MASCARA MOLDER Source: [facility] [employer] Document Id: [id number] MASCARA MOLDER!3 ARA MOLDER Marleen Kenney R.N. - 09/29/2013 10:28 PM CST ED Treatments and Procedures ED Treatments and Procedures Entered On: 09/29/2013 22:28 MASCARA MOLDER Performed On: 09/29/2013 22:28 MASCARA MOLDER by MARLEEN KENNEY RN Peripheral IV Peripheral IV Assess/Intervention Grid Peripheral IV #1 IV Activity : Discontinue Number of Attempts : 1 Date of Insertion : 09/29/2013 MASCARA MOLDER IV Site : Hand Laterality : Left Catheter Size : 20 Catheter Type : Over the needle Dressing/ Activity : Dry, Gauze MARLEEN KENNEY RN - 09/29/2013 22:28 MASCARA MOLDER Source: [email or web address] Document Id: [id number] MASCARA MOLDER!12 ARA MOLDER Marleen Kenney R.N. - 09/29/2013 10:28 PM CST ED Disposition Summary ED Disposition Summary Entered On: 09/29/2013 22:28 MASCARA MOLDER Performed On: 09/29/2013 22:28 MASCARA MOLDER by MARLEEN KENNEY RN ED Disposition Summary Accompanied By : Friend Mode of Discharge : Ambulatory Discharge From ED With : Home Med List Printed Discharge Instructions Given to Patient : Yes Patient Status at Discharge from ED : Improved MARLEEN KENNEY RN - 09/29/2013 22:28 MASCARA MOLDER Source: [email or web address] Document Id: [id number] MASCARA MOLDER!7 ARA MOLDER Marleen Kenney R.N. - 09/29/2013 10:27 PM CST ED Nurse Reassess ED Nurse Reassess Entered On: 09/29/2013 22:28 MASCARA MOLDER Performed On: 09/29/2013 22:27 MASCARA MOLDER by MARLEEN KENNEY RN Pain Assessment Pain Symptoms : No MARLEEN KENNEY RN - 09/29/2013 22:27 MASCARA MOLDER Neuro Reassess Last Well Time Known : Not applicable Orientation : Oriented x 3 Characteristics of Speech : Clear Level of Consciousness : Alert Neuro Patient Stated Symptoms : None Gait : Steady ELIZA : Yes Facial Symmetry : Normal Extremity Movement : Equal Extremity Sensation : Normal Speech Characteristics : Normal Neuro Note : Reports that her headache has subsided. LISSYRIO HEDRICKAida Mitchell RN - 09/29/2013 22:27 MASCARA MOLDER GI Reassess GI Patient Stated Symptoms : None ANNE MARIEMARLEEN Stephen RN - 09/29/2013 22:27 MASCARA MOLDER [facility] Document Id: [id number] MASCARA MOLDER!18 ARA MOLDER Misael Camilo M.B. - 09/29/2013 8:55 PM CST Headache Patient: LAUREL CARABALLO Age: 18 years Sex: Female : 1995 Author: MISAEL CAMILO MD Attachments: None Associated Diagnosis: Migraine headache 346.90 Basic Information Time seen: Date & time 09/29/2013 20:53:00. History source: Patient, friend. Arrival mode: Private vehicle. History limitation: None. Additional information: Chief Complaint from Nursing Triage Note : Chief Complaint Description. 09/29/2013 19:47 MASCARA MOLDER Chief Complaint Description pt. c/o migraines since aug. states they have been getting worse the last few weeks. went to the dr. today and was given 50mg imitrex with little relief. c/o nausea. states headache is frontal. c/o photophobia. History of Present Illness The patient presents with headache and migraine. The onset was ~1 month. The course/duration of symptoms is constant. Location: frontal. Radiating pain: none. The character of symptoms is achy. The degree at onset was minimal. The degree at maximum was moderate. The degree at present is minimal. There are exacerbating factors including light and noise. The relieving factor is none. Risk factors consist of none. Prior episodes: frequent and migraine. Therapy today: prescription medications including Imitrex and doctor's office visit. Preceding symptoms: none. Associated symptoms: nausea, neck pain(mild), denies vomiting, denies fever and denies chills. Patient reports a hx of chronic migraine HAw/ noted daily sxs over the last ~1 month. She notes nausea (no vomiting) and has photophobia w/ current sxs. No neck pain/stiffness, no fevers. Patient notes an office visit to today and did receive Imitrex at that time, notes little relief. . Review of Systems Constitutional symptoms: Negative except as documented in HPI, but no fever or no chills. Skin symptoms: Negative except as documented in HPI, but no rash. Eye symptoms: Vision unchanged, but no diplopia or no blurred vision. ENMT symptoms: Sore throat (mild). Respiratory symptoms: Negative except as documented in HPI, but no shortness of breath or no cough. Cardiovascular symptoms: Negative except as documented in HPI, but no chest pain or no syncope. Gastrointestinal symptoms: Nausea, but no abdominal pain or no vomiting. Genitourinary symptoms: Negative except as documented in HPI. Musculoskeletal symptoms: Negative except as documented in HPI. Neurologic symptoms: Headache, but no dizziness, no altered level of consciousness, no numbness, no tingling or no weakness. Psychiatric symptoms: Negative except as documented in HPI. Endocrine symptoms: Negative except as documented in HPI. Health Status Allergies: . Allergic Reactions (Selected) Severity Not Documented Codeine- Vomiting. Past Medical/ Family/ Social History Medical history: Negative. Surgical history: Negative. Family history: Reviewed as documented in chart. Social history: Occupation: A student, Family/social situation: lives on campus. Physical Examination Vital Signs: Vital Signs, 09/29/2013 20:46 MASCARA MOLDER Pulse SpO2 80 /min SpO2 99 % Systolic Blood Pressure 106 mmHg Diastolic Blood Pressure 68 mmHg Mean Arterial Pressure 77 mmHg 09/29/2013 19:47 MASCARA MOLDER Temperature Core 36.7 DegC Peripheral Pulse Rate 72 /min Respiratory Rate 20 /min SpO2 99 % Systolic Blood Pressure 109 mmHg Diastolic Blood Pressure 76 mmHg Mean Arterial Pressure 87 mmHg BP Location Right upper SpO2. 09/29/2013 20:46 MASCARA MOLDER SpO2 99 % 09/29/2013 19:47 MASCARA MOLDER SpO2 99 % General: Alert and no acute distress. Skin: Warm, dry and intact. Head: Normocephalic and atraumatic. Neck: Supple and no meningismus. Eye: Pupils are equal, round and reactive to light and normal conjunctiva. Ears, nose, mouth and throat: Oral mucosa moist and no pharyngeal erythema or exudate. Cardiovascular: Regular rate and rhythm, No murmur and Normal peripheral perfusion. Respiratory: Lungs are clear to auscultation, respirations are non-labored, breath sounds are equal and Symmetrical chest wall expansion. Gastrointestinal: Soft, Nontender and Non distended. Neurological: Alert and oriented to person, place, time, and situation and No focal neurological deficit observed. Psychiatric: Cooperative and appropriate mood & affect. Medical Decision Making Documents reviewed:Emergency department nurses' notes. OrdersLaunch Orders. Laboratory: Beta hCG Qualitative Urine (Order Processing): Stat, 09/29/2013 21:00 MASCARA MOLDER, Once Urinalysis with Microscopic if Indicated (Order Processing): Stat, 09/29/2013 21:00 MASCARA MOLDER, Once, [facility] Urine Pharmacy: Benadryl (Order Processing): 50 mg, IV Push, Once Reglan (Order Processing): 10 mg, IV Push, Once Toradol (Order Processing): 30 mg, IV Push, Once NS 1000 mL Bolus and Continuous (ED Only) 1000 mL (Order Processing): 1,000 mL/hr, IV Notes:IRP: Migraine headache without concerning signs to suggest meningitis or intracranial bleed. No focal neuro signs or meningeal signs. No head trauma. Symptoms resolved with IV fluids, Reglan, and Toradol. Patient will be discharged home with PCP f/u. Reasons for return to the ED were discussed and patient expressed understanding.. Impression and Plan Diagnosis Migraine headache 346.90 (Discharge, Emergency medicine, Medical) Plan Condition: Improved, Stable. Disposition: Discharged: to home. Patient was given the following educational materials: Migraines and Cluster Headaches. Follow up with: ; Follow up with primary care provider Within 3 - 5 days Call for follow up appointment; Return to Emergency Department Within As Needed If symptoms worsen. Counseled: Patient, Friend, Regarding diagnosis, Regarding diagnostic results, Regarding treatment plan, Regarding prescription, Patient indicated understanding of instructions. Notes: charted by scribe: Noble Parada for Dr. Aliza Camilo. Electronically Signed By: MISAEL CAMILO MD On: 09/30/2013 08:26 AM Modified by and Electronically Signed by: MISAEL CAMILO MD On: 09/29/2013 09:00 PM Source: [facility] POWERCHART Document Id: [id number] ARA MOLDER Marleen Kenney R.N. - 09/29/2013 8:47 PM CST ED Primary Assessment Document Has Been Updated ED Primary Assessment Entered On: 09/29/2013 21:21 MASCARA MOLDER Performed On: 09/29/2013 20:47 MASCARA MOLDER by MARLEEN KENNEY RN Reason For Visit (As Of: 09/29/2013 21:21:18 MASCARA MOLDER) Problems(Active) Asthma NOS (493.90) (ICD-9-CM :493.90 ) Name of Problem: Asthma NOS (493.90) ; Recorder: JUDI ALVARENGA III, MD; Confirmation: Confirmed ; Classification: Medical ; Code: 493.90 ; Last Updated: 11/23/2012 9:29 MASCARA MOLDER ; Life Cycle Date: 11/23/2012 ; Life Cycle Status: Active ; Vocabulary: ICD-9-CM Asthma, Unspecified (ICD-9-CM :493.90 ) Name of Problem: Asthma, Unspecified ; Recorder: YVON ZHOU RN; Confirmation: Confirmed ; Classification: Nursing ; Code: 493.90 ; Contributor System: [employer] ; Last Updated: 10/30/2012 13:00 MASCARA MOLDER ; Life Cycle Date: 10/30/2012 ; Life Cycle Status: Active ; Responsible Provider: JOHNNIE ZHOU RN; Vocabulary: ICD-9-CM Diagnoses(Active) Headache Date: 09/29/2013 ; Diagnosis Type: Reason For Visit ; Confirmation: Complaint of ; ClinicalDx: Headache ; Classification: Medical ; Clinical Service: Emergency medicine ; Code: PNED ; Probability: 0 ; Diagnosis Code: [id number] Triage Mode of Arrival ED : Private vehicle Track : Medical Languages : Norwegian Treatments Prior to Arrival : None MARLEEN KENNEY RN - 09/29/2013 21:16 MASCARA MOLDER Pain Assessment Pain Symptoms : Yes MARLEEN KENNEY RN - 09/29/2013 21:16 MASCARA MOLDER Pain Pain Assessment Grid Pain 1 Location : Head Intensity : 8 MARLEEN KENNEY RN - 09/29/2013 21:16 MASCARA MOLDER JACQUELINE DCP GENERIC CODE Tracking Acuity : 3 -Urgent Tracking Group : [facility] MARLEEN KENNEY CHANEL - 09/29/2013 21:16 MASCARA MOLDER Allergy (As Of: 09/29/2013 21:21:18 MASCARA MOLDER) Allergies (Active) codeine Estimated Onset Date: Unspecified ; Reactions: vomiting ; Created By: JOHNNIE ZHOU RN; Reaction Status: Active ; Category: Drug ; Substance: codeine ; Type: Allergy ; Updated By: JOHNNIE ZHOU; Reviewed Date: 09/29/2013 21:17 MASCARA MOLDER ID Screen Drug Resistant Organism : No MARLEEN KENNEY - 09/29/2013 21:16 MASCARA MOLDER Immunizations Immunizations Current : Yes MARLEEN KENNEY CHANEL - 09/29/2013 21:16 MASCARA MOLDER Respiratory Airway : Patent Respirations : Unlabored Respiratory Pattern : Regular Respiratory Detailed Assessment : Yes MARLEEN KENNEY CHANEL - 09/29/2013 21:16 MASCARA MOLDER Resp Detailed Respiratory Patient Stated Symptoms : None Distress : None Cough : None MARLEEN KENNEY CHANEL - 09/29/2013 21:16 MASCARA MOLDER Breath Sounds Assessment Grid BUL : Clear BLL : Clear MARLEEN KENNEY - 09/29/2013 21:16 MASCARA MOLDER Cardiovascular Heart Rhythm : Regular Skin Color : Normal for ethnicity Skin Description : Dry Skin Temperature : Warm MARLEEN KENNEY CHANEL - 09/29/2013 21:16 MASCARA MOLDER Neurological Last Well Time Known : Not applicable Level of Consciousness : Alert Orientation : Oriented x 3 Characteristics of Speech : Clear Neuro Patient Stated Symptoms : Headache Gait : Steady Swallowing Difficulty/Aspiration Risk : None Neuro Detailed Assessment : Yes MARLEEN KENNEY CHANEL - 09/29/2013 21:16 MASCARA MOLDER Neuro Detailed ELIZA : Yes Facial Symmetry : Normal Extremity Movement : Equal Extremity Sensation : Normal Speech Characteristics : Normal Neuro Note : Pt c/o headaches that occurr almost daily since early August. c/o photophobia, blurredvision, hot flashes and nausea with headaches. Saw a provider in today and given RX for sumatriptan. Reports that new med did not help. denies weakness or (Comment: dizziness. Gait steady. Alert, oriented x 3. Neuros otherwise intact. [MARLEEN KENNEY CHANEL - 09/29/2013 21:16 MASCARA MOLDER] ) ANNE MARIE MARLEEN Stephen BUCHANAN - 09/29/2013 21:16 MASCARA MOLDER ED Psychosocial Affect/Behavior : Calm, Cooperative, Appropriate Domestic Abuse Concerns : None MARLEEN KENNEY RN - 09/29/2013 21:16 MASCARA MOLDER Gastrointestinal Nutrition ED : Adequate GI Detailed Assessment : Yes MARLEEN KENNEY RN - 09/29/2013 21:16 MASCARA MOLDER GI Detailed GI Patient Stated Symptoms : Nausea Abdomen Description : Flat Abdomen Palpation : Non-Tender, Soft MARLEEN KENNEY RN - 09/29/2013 21:16 MASCARA MOLDER Musculoskeletal Fall Prevention Education Provided : Yes MARLEEN KENNEY RN - 09/29/2013 21:16 MASCARA MOLDER Social Habits Tobacco Use/Currently Using : No Exposure to Tobacco Smoke : Care provider denies smoking in home Smoking Status : Never smoker MARLEEN KENNEY RN - 09/29/2013 21:16 MASCARA MOLDER Recreational Drug Use Grid Drug Use : None MARLEEN KENNEY RN - 09/29/2013 21:16 MASCARA MOLDER Peripheral IV Peripheral IV Assess/Intervention Grid Peripheral IV #1 IV Activity : Start Number of Attempts : 1 Date of Insertion : 09/29/2013 MASCARA MOLDER IV Site : Hand Laterality : Left Catheter Size : 20 Catheter Type : Over the needle Site Condition : No complications Drainage Description : None Dressing/ Activity : Intact, Transparent Flow/ Patency : No complications MARLEEN KENNEY RN - 09/29/2013 21:16 MASCARA MOLDER [facility] Document Id: [id number] MASCARA MOLDER!87 ARA MOLDER Cyndi Paz R.N. - 09/29/2013 7:47 PM CST ED Triage Assessment Document Has Been Updated ED Triage Assessment Entered On: 09/29/2013 19:50 MASCARA MOLDER Performed On: 09/29/2013 19:47 MASCARA MOLDER by CYNDI PAZ RN Reason For Visit (As Of: 09/29/2013 19:50:15 MASCARA MOLDER) Problems(Active) Asthma NOS (493.90) (ICD-9-CM :493.90 ) Name of Problem: Asthma NOS (493.90) ; Recorder: JUDI ALVARENGA III, MD; Confirmation: Confirmed ; Classification: Medical ; Code: 493.90 ; Last Updated: 11/23/2012 9:29 MASCARA MOLDER ; Life Cycle Date: 11/23/2012 ; Life Cycle Status: Active ; Vocabulary: ICD-9-CM Asthma, Unspecified (ICD-9-CM :493.90 ) Name of Problem: Asthma, Unspecified ; Recorder: YVON ZHOU RN; Confirmation: Confirmed ; Classification: Nursing ; Code: 493.90 ; Contributor System: [employer] ; Last Updated: 10/30/2012 13:00 MASCARA MOLDER ; Life Cycle Date: 10/30/2012 ; Life Cycle Status: Active ; Responsible Provider: JOHNNIE ZHOU RN; Vocabulary: ICD-9-CM Diagnoses(Active) Headache Date: 09/29/2013 ; Diagnosis Type: Reason For Visit ; Confirmation: Complaint of ; ClinicalDx: Headache ; Classification: Medical ; Clinical Service: Emergency medicine ; Code: PNED ; Probability: 0 ; Diagnosis Code: [id number] Triage Chief Complaint Description : pt. c/o migraines since aug. states they have been getting worse the last few weeks. went to the dr. today and was given 50mg imitrex with little relief. c/o nausea. states headache is frontal. c/o photophobia. Information Given By : Patient Mode of Arrival ED : Private vehicle Track : Medical Languages : Norwegian Vital Signs Assessed : Yes Treatments Prior to Arrival : None CYNDI PAZ RN - 09/29/2013 19:47 MASCARA MOLDER Vital Signs Temperature Core : 36.7 DegC(Converted to: 98.1 DegF) Peripheral Pulse Rate : 72 /min Respiratory Rate : 20 /min Systolic Blood Pressure : 109 mmHg Diastolic Blood Pressure : 76 mmHg NIBP Mean : 87 mmHg BP Location : Right upper extremity SpO2 : 99 % Oxygen Therapy : Room air CYNDI PAZ RN - 09/29/2013 19:47 MASCARA MOLDER Pain Assessment Pain Symptoms : Yes CYNDI PAZ RN - 09/29/2013 19:47 MASCARA MOLDER Pain Pain Assessment Grid Pain 1 Location : Head Intensity : 9 CYNDI PAZ RN - 09/29/2013 19:47 MASCARA MOLDER JACQUELINE JACQUELINE Level 1 : No JACQUELINE Level 2 : No JACQUELINE Level 3 : Many CYNDI PAZ RN - 09/29/2013 19:47 MASCARA MOLDER DCP GENERIC CODE Tracking Acuity : 3 -Urgent Tracking Group : [facility] CYNDI PAZ RN - 09/29/2013 19:47 MASCARA MOLDER Allergy (As Of: 09/29/2013 19:50:15 MASCARA MOLDER) Allergies (Active) codeine Estimated Onset Date: Unspecified ; Reactions: vomiting ; Created By: JOHNNIE ZHOU RN; Reaction Status: Active ; Category: Drug ; Substance: codeine ; Type: Allergy ; Updated By: JOHNNIE ZHOU; Reviewed Date: 10/30/2012 12:56 MASCARA MOLDER Source: [facility] POWERCHART Document Id: [id number] MASCARA MOLDER!33 ARA MOLDER documented in this encounter Miscellaneous Notes Miscellaneous - Marleen Kenney R.N. - 09/29/2013 7:38 PM CST Facility Charge Ticket 2.0 11.0 DX Facility Charge Ticket 2.0 11.0 DX Entered On: 09/29/2013 22:29 MASCARA MOLDER Performed On: 09/29/2013 19:38 MASCARA MOLDER by MARLEEN KENNEY RN Facility Charge Ticket 2.0 11.0 DX ED Other Charges : Standard ED Encounter TVL Level Translated RTF : Headache TVL:4 TVL Level for Facility Charge Ticket : Level 4 Arrival Mode Calc : 1 Mode of Arrival ED : Private vehicle [facility] Mode of Arrival Interpreted : Standard [facility] Process Management : None Order Management RTF : Laboratory Urinalysis with Microscopic if Indicated,09/29/13 21:00,MISAEL CAMILO MD Completed Beta hCG Qualitative Urine,09/29/13 21:00,MISAEL CAMILO MD Completed [facility] Order Management : Lab tests 30 Minutes Critical Care : No Nursing Notes RTF : Triage Forms ED Triage Assessment,09/29/13 19:47,CYNDI PAZ RN Nursing Notes ED Primary Assessment,09/29/13 20:47,MARLEEN KENNEY RN ED Nurse Reassess,09/29/13 22:27,MARLEEN KENNEY RN ED Pain Assessment,09/29/13 22:29,MARLEEN KENNEY RN [facility] Nursing Assessment : Triage and 1-2 nursing assessments [facility] Disposition : Discharge Disposition RTF : discharge [facility] Total Points with Diagnosis Control : 8 [facility] Visit Level : 88510 Level 4 Treatments Prior to Arrival : None MARLEEN KENNEY RN - 09/29/2013 22:29 MASCARA MOLDER Source: [facility] POWERCHART Document Id: [id number] MASCARA MOLDER!19 ARA MOLDER documented in this encounter Plan of Treatment Not on filedocumented as of this encounter Procedures Procedure Name Priority Date/Time Associated Diagnosis Comme nts TEST, U Routine 11/11/2012 10:04 PM Res ults for this MASCARA MOLDER procedure are i n the results section. URINALYSIS, ROUTINE Routine 11/11/2012 10:04 PM R esults for this MASCARA MOLDER procedure are i n the results section. documented in this encounter Results Test, Qualitative, Urine (11/11/2012 10:04 PM MASCARA MOLDER) [facility] [employer] Method Time Signature HXBeta-hCG Negative Negative POWERCHART Qualitative Urine Specimen (Source) Anatomical Collection Method Collection Time Re ceived Time Location / / Volume Laterality Urine 11/11/2012 10:04 PM MASCARA MOLDER Misael Rico LAB URINE ORDERABLES Performing Organization Address City/State/ZIP Code Phon e Number POWERCHART Urinalysis, Routine (11/11/2012 10:04 PM MASCARA MOLDER) [facility] [employer] Method Time Signature Source Clean Void POWERCHART Urine HXUr Color Yellow Yellow POWERCHART Appearance Clear POWERCHART Specific 1.010 1.000 - POWERCHART [place], POCT, U 1.030 pH, POCT, Urine 7.0 5.0 - 9.0 POWERCHART Protein, Ur, Dip Negative Negative POWERCHART Glucose Negative Negative POWERCHART Ketones, QL(U) Negative Negative POWERCHART HXBILIRUBIN Negative Negative POWERCHART HXBLOOD Negative Negative POWERCHART Leukocyte Negative Negative POWERCHART Esterase HXNITRITE Negative Negative POWERCHART Urobilinogen 0.2 0.1 - 2.0 POWERCHART Specimen (Source) Anatomical Collection Method Collection Time Re ceived Time Location / / Volume Laterality Urine 11/11/2012 10:04 PM MASCARA MOLDER Misael Rico LAB URINE ORDERABLES Performing Organization Address City/State/ZIP Code Phon e Number POWERCHART documented in this encounter Visit Diagnoses Not on filedocumented in this encounter
--- OUTSIDE RECORDS SUMMARY | 2022-08-31 12:43 | XMS_ITS | Encounter Summary ---
:1995 Author Organization [facility] Address [address] [place] [address] Care Team Providers Name Role Phone Unavailable Primary Care Provider Unavailable Encounter Details Date Type Department Care Team Description 12/29/2008 Hospital Encounter HX [facility] INPT/OBSRV Beth Jordan M.D. [address] [place] [address] (Wo rk) Social History Tobacco Use Types [...]
--- OUTSIDE RECORDS SUMMARY | 2022-08-31 12:43 | XMS_ITS | Encounter Summary ---
:1995 Author Organization [facility] Address [address] [place] [address] Care Team Providers Name Role Phone Unavailable Primary Care Provider Unavailable Encounter Details Date Type Department Care Team Description 02/18/2008 Hospital Encounter HX [facility] INPT/OBSRV Beth Jordan M.D. [address] [place] [address] (Wo rk) Social History Tobacco Use Types [...] for the very basics like Not v cramina hard 11/23/2021 food, housing, medical care, and [...] or slept in a assisted (including now)? Sex Assigned at Date Recorded Female 07/18/2021 2:49 PM CDT documented as of this encounter Plan of Treatment Not on filedocumented as of this encounter Visit Diagnoses Not on filedocumented in this encounter
--- OUTSIDE RECORDS SUMMARY | 2022-08-31 12:43 | XMS_ITS | Encounter Summary ---
:1995 Author Organization [facility] Address [address] [place] [address] Care Team Providers Name Role Phone Unavailable Primary Care Provider Unavailable Encounter Details Date Type Department Care Team Description 08/08/2012 Hospital Encounter [facility] Rachele Warner M.D. Social History Tobacco Use Types Packs/Day [...] Sign Reading Time Taken Comments Blood Pressure 82/50 08/08/2012 4:21 PM CDT Pulse 72 08/08/2012 4:21 PM CDT Temperature - - Respiratory Rate 16 08/08/2012 4:21 PM CDT Oxygen Saturation - - Inhaled Oxygen Concentration - - Weight - - Height - - Body Mass Index - - documented in this encounter Progress Notes Rachele Warner M.D. - 08/08/2012 4:03 PM CDT [id number] CHIEF COMPLAINT/REASON FOR VISIT Laurel comes in for followup of a finger fracture. HISTORY OF PRESENT ILLNESS I saw her for this three weeks ago. It happened about three weeks ago. She jammed the left fourth finger. It has a tiny avulsion fracture. She has been wearing the splint. She says the finger feels kind of stiff but she is able to bend it. IMAGING STUDIES: X-ray was redone today. It shows no change in alignment and it looks like there is some healing. IMPRESSION/REPORT/PLAN Finger fracture, healing. Plan: We will have her go without the splint, try to work on range motion. I did tell her she shouldwear the splint if she is to be playing more football. Otherwise, we will see her back on an as needed basis. Rachele Warner M.D./eddi Electronically Signed By: RACHELE WARNER MD On: 08/11/2012 10:09 AM Source: [facility] MHSDOLBEYNONRADSYS Document Id: [id number] documented in this encounter Miscellaneous Notes Miscellaneous - Rachele Warner M.D. - 08/08/2012 5:12 PM CDT Ambulatory Patient Summary [address] [address] Visit Information Name: LAUREL CARABALLO Current Date: 08/08/2012 17:12:51 Physicians Attending Provider: RACHELE WARNER MD Primary Care Provider: CHARLOTTE WHITNEY NP Your Medications Here is a list of your medications. It is important to take your medications as directed. Use a pillbox or chart to help remind you to take your medications. Please let your doctor or nurse know if you have problems taking your medications. Medication/Strength Dose Route Frequency Indications/Special Instructions/Comments Misc Prescription (Misc Prescription) control po daily budesonide-formoterol (Symbicort 160mcg-4.5mcg/inh) Attention: If you have any medications at home that are not on this list, DO NOT take them until youcontact your provider for clarification. Your Allergies & Intolerances Substance Reaction Symptoms Category Comments codeine Drug Your Problem List Problem Status Onset Comments No current problems or disability Active Your Upcoming Appointments Date Time Location Reason Provider No Appointments found Your Goals/Additional instructions: Source: [facility] POWERCHART Document Id: [id number] Miscellluz - Rachele Warner M.D. - 08/08/2012 5:12 PM CDT Ambulatory Depart Summary [address] [address] Visit Information Name: LAUREL CARABALLO Visit Date: 08/08/2012 17:12:50 Attending Provider: RACHELE WARNER MD Primary Care Provider: CHARLOTTE WHITNEY NP LAUREL CARABALLO has been given the following list of medications: Your Medications It is important to take your medications as directed. Use a pill box or chart to help remind you to take your medications. Please let your doctor or nurse know if you have problems taking your medications. Medication/Strength Dose Route Frequency Indications/Special Instructions/Comments Misc Prescription (Misc Prescription) control po daily budesonide-formoterol (Symbicort 160mcg-4.5mcg/inh) Attention: If you have any medications at home that are not on this list, DO NOT take them until youcontact your provider for clarification. 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 Intake/History Entered On: 08/08/2012 16:24 CDT Performed On: 08/08/2012 16:21 CDT by PAN LEROY LPN Intake Chief Complaint : follow up fracture 4th finger Peripheral Pulse Rate : 72/min Respiratory Rate : 16/min Heart Rhythm : Regular Systolic Blood Pressure : 82mmHg (<LLOW) Diastolic Blood Pressure : 50mmHg (LOW) NIBP Mean : 61mmHg BP Location : Left upper extremity Blood Pressure Cuff Size : Regular PAN LEROY GLUE SPECIALTY SUPERVISOR - 08/08/2012 16:21 CDT Subjective Pain Symptoms : Yes PAN LEROY LPN - 08/08/2012 16:21 CDT Pain Pain Assessment Grid Pain 1 Location : Finger Laterality : Left Intensity : 5 PAN LEROY LPN - 08/08/2012 16:21 CDT Dependent Habits Tobacco Use/Currently Using : No Tobacco Use/Last 12 months : No Tobacco Use/Advised to Quit : No Exposure to Tobacco Smoke : Care provider denies smoking in home Smoking Status : Never smoker PAN LEROY LPN - 08/08/2012 16:21 CDT Caffeine Use Grid Caffeine Use : Current Type : Soft drinks Frequency : Daily PAN LEROY LPN - 08/08/2012 16:21 CDT Recreational Drug Use Grid Drug Use : None PAN LERYO LPN - 08/08/2012 16:21 CDT Allergy Allergies (Active) codeine Estimated Onset Date: Unspecified ; Created By: MELBA SILVA LPN; Reaction Status: Active ; Category: Drug ; Substance: codeine ; Type: Allergy ; Updated By: MELBA SILVA LPN; Reviewed Date: 12/15/2011 10:43 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
--- OUTSIDE RECORDS SUMMARY | 2022-08-31 12:43 | XMS_ITS | Encounter Summary ---
:1995 Author Organization [facility] Address [address] [place] [address] Care Team Providers Name Role Phone Unavailable Primary Care Provider Unavailable Encounter Details Date Type Department Care Team Description 08/12/2009 Hospital Encounter HX [facility] ANNIKA Jarrell Alexander, INPT/OBSRV M.D. [address] [address] (Wo rk) Social History Tobacco Use [...]
--- OUTSIDE RECORDS SUMMARY | 2022-08-31 12:43 | XMS_ITS | Encounter Summary ---
:1995 Author Organization [facility] Address [address] [place] [address] Care Team Providers Name Role Phone Unavailable Primary Care Provider Unavailable Encounter Details Date Type Department Care Team Description 08/17/2008 Hospital Encounter HX [facility] INPT/OBSRV Beth Jordan M.D. [address] [place] [address] (Wo rk) Social History Tobacco Use Types [...] or relatives? How often do you attend episcopalian or 1 to 4 times per year 11/11 [employer] services? Do you belong to any clubs or Yes 11/23/2021 organizations such as episcopalian groups, unions, fraternal or athletic groups, or [...]
--- OUTSIDE RECORDS SUMMARY | 2022-08-31 12:45 | XMS_ITS | Continuity of Care Document ---
:1995 Author Organization [facility] Address [address] [address] [place] [address] Phone Care Team Providers Name Role Phone Gregory Kearns MD Unavailable Unavailable Procedures Procedure Date Subsqt Hosp-da E&m Minr Compl Sigmoidoscopy Flex; W/bx 1/mx Subsqt Hosp-da E&m Minr Compl Subsqt Hosp-da E&m Minr Compl Subsqt Hosp-da E&m Minr Compl Subsqt Hosp-da E&m Minr Compl Subsqt Hosp-da E&m Minr Compl Init Inpt Cons New/est Mod-hi Subsqt Hosp-da E&m Minr Compl Advance Directives Directive Yes / No Effective Date File Name No Information Encounters Encounter Practice Location Reason(s) Diagnoses Date Provider Provide rs Description For Visit Copied on Encounter [facility] No Som Referring [facility] Information 9-201 Provider: Magen Guzman. Listed [address]. [address], [place], [place], [place], [place] [id number], [address], [place] tel:12 , [place], [phone] , [place]. tel:[phone] [facility] Jan- [facility] pancolitis 8-201 MD Deluna. Health MARNI, without [address] [place] [address], [place] , [place], [address], [id number], [facility], [place], tel:[phone] , [place]. tel:[phone] Subsqt [facility] No Jan- Sav Referring [facility] Information MD Deluna. Pro vider: [facility] [place], [address] [facility] [place], [address], [address] [place] [address], [address], [id number], [facility], [place], [address]. [phone] tel:[phone] , [place]. [id number] tel:[phone] Init Inpt [place] [facility] No [place] Referring Cons [facility] Information Rigoberto. Prov ider: [facility] [place], [address] [facility] [place], [address], [address] [place], [place], [address], [id number], [facility], [place], [address]. [phone] tel:[phone] , . [id number] tel:[phone] Family History Family Member Type Diagnosis Age At Onset No Information Payers Payer name Insurance type Covered green party ID Authorization(s ) No Information Social History Type Description Quantity Date Captured Comments Sex Female Smoking Status No Information Chief Complaint And Reason For Visit No Information Reason For Referral Reason For Referral No Information Plan Of Treatment Date Type Action Status Referral Ordered: ordered follow-up visit with IBD clinic 1 Month Appointment date/timeframe: 1 Month History Of Present Illness Encounter Date Complaint History Of Present I llness No Information Functional Status Date Functional Assessment No Information Instructions Date Instruction Additional Informati on No Information Assessments Type Assessment Date No Information Patient Care Teams Name Effective Dates (start - stop) Status M zohaib No Information
[2022-08-31 12:53] LABS: Influenza Type A Negative (Negative); Influenza Type B Negative (Negative)
[2022-08-31 15:37] LABS: Strep A DNA Probe* NOT DETECTED (No Detected)
== END 2022-08-31 12:31 | disposition home or self-care (01) ==
PROVIDERS: PCP Nurse Practitioner Family; Visit Provider Nurse Practitioner Family
DX: J02.9 Acute pharyngitis, unspecified (principal); L65.9 Nonscarring hair loss, unspecified; J32.9 Chronic sinusitis, unspecified; R63.4 Abnormal weight loss
CPT/HCPCS: 36415; 84443; 87651; 87804